=== PATIENT | male | born 1940 | race Caucasian/White ===

== ENCOUNTER → 2018-09-12 11:32 | Outpatient (POV) | payer MEDICARE, SELFPAY | PROVIDERS: PCP Dermatology; Visit Provider Dermatology | DX: L02.11 Cutaneous abscess of neck (principal); L72.0 Epidermal cyst | CPT/HCPCS: 87070; 87077; 87186; 87205 ==

== ENCOUNTER 2024-10-24 07:09 | Inpatient (IN) | payer MEDICARE, SELFPAY ==
[2024-10-24] VITALS (16 sets, daily range): BP systolic 91–158; BP diastolic 45–91; PULSE 44–127; RESP 17–22; TEMP 36.4–37; O2SAT 87–96; BMI 31.9
--- NOTE | 2024-10-24 07:07 | ECG_ITS ---
APPROVED REPORT Exam: Resting ECG HR:132 bpm ECG Measurements Heart Rate 132 AXES QRSd 84 QRS -11 QT 354 T 108 QTc 432 Conclusion A-fib with RVR ST depressions and T wave inversions throughout EKG. No specific anatomical location. No reciprocal elevations Electronically signed by : MALVIN SHEARER, 10/24/2024 13:25:05
--- NOTE | 2024-10-24 07:13 | CT_ITS ---
FINAL REPORT TECHNIQUE: Thin section axial CT with contrast with multiplanar reconstruction This study was performed with techniques to keep radiation doses as low as reasonably achievable, (ALARA). Individualized dose reduction techniques using automated exposure control or adjustment of mA and/or kV according to the patient''s size were employed. CLINICAL HISTORY: chest and abd pain. tachycardia, ams FINDINGS: Thoracic aorta shows no dissection or aneurysm. There is moderate bilateral lower lobe atelectasis. Moderate bilateral pleural effusions are identified. The upper lobes are clear without evidence of edema. Small pericardial effusion is identified. No mediastinal or hilar adenopathy is present. IMPRESSION: No evidence of aortic dissection or aneurysm. Moderate effusions with atelectasis. Pericardial effusion. Reviewed, Interpreted and Dictated by Alexey Ovalles MD Transcribed by Breana Weller Authenticated and [facility]
--- NOTE | 2024-10-24 07:13 | CT_ITS ---
FINAL REPORT TECHNIQUE: Pre-and postcontrast images of the abdomen and pelvis were performed by computed tomography. Extensive 3-D reconstruction images were performed. A CTA was performed. This study was performed with techniques to keep radiation doses as low as reasonably achievable (ALARA). Individualized dose reduction techniques using automated exposure control or adjustment of mA and/or kV according to the patient''s size were employed. CLINICAL HISTORY: chest and abd pain. tachycardia, ams FINDINGS: ABDOMEN/PELVIS: The solid organs are unremarkable. The gallbladder is normal. There is moderate distention of large bowel which may be due to ileus. There is no evidence of obstruction. There is colonic distention with fecal impaction. Patient is status post prostatectomy. The bladder is decompressed. CTA: The abdominal aorta is normal in caliber without evidence of dissection. The aortic arch great vessels are widely patent. IMPRESSION: Moderate distention of the large bowel, may be due to ileus. Reviewed, Interpreted and Dictated by Alexey Ovalles MD Transcribed by Breana Weller Authenticated and [facility]
--- OUTSIDE RECORDS SUMMARY | 2024-10-24 07:14 | XMS_ITS | Encounter Summary ---
Author Organization [employer] Address [address] [place] [address] Care Team Providers Care Machine Stripper Name Role Phone Unavailable Primary Care Provider Unavailabl e Encounter Details Date Type Department Care Team (Late st Contact Info) Description 11/29/2018 Transcribed Document [facility] [place] [address] [place] [address] ProviderDarwin MD [address] [place] [address] Social History Tobacco Use Types Packs/Day Years Used Date Smoking Tobacco: Never Assessed Sex and Gender Information Value Date Recorded Sex Assigned at Male 10/27/2021 3:42 PM CDT Legal Sex Male 3:42 PM CDT Gender Identity Male 10/27/2021 3:42 PM CDT Sexual Orientation Not on file documented as of this encounter Miscellaneous Notes * Cerner Conversion Note - Darwin ProviderMD - 11/29/2018 2:52 PM CDT Nursing Discharge Summary Entered On: 11/29/2018 14:54 EDT Performed On: 11/29/2018 14:52 EDT by ERICA GOODWIN RN-Charge Discharge Documentation Patient Disposition, General : Discharge Discharge To : Group Home unit/facility Mode Of Departure, General Discharge : Private vehicle Accompanied By, Discharge : Care provider IV Discontinued : Not applicable Personal Belongings With Patient : Yes Prescriptions Given to Patient : Yes Discharge Instructions Reviewed With, Opportunity For Questions Given : Patient Patient Education Completed : Yes Number of Prescriptions Given : 2 Teaching Method : Explanation, Printed materials Teaching Evaluation : Verbalizes understanding ERICA GOODWIN, RN-Charge - 11/29/2018 14:52 EDT Electronically signed by Marybeth [facility] Conversion Sales Marketing Cerner at 08/17/2022 9:48 AM CDT documented in this encounter Plan of Treatment Not on file documented as of this encounter Visit Diagnoses Not on filedocumented in this encounter
--- OUTSIDE RECORDS SUMMARY | 2024-10-24 07:14 | XMS_ITS | Encounter Summary ---
Author Organization [employer] Address [address] [place] [address] Care Team Providers Care Music Writer Name Role Phone Unavailable Primary Care Provider Unavailabl e Encounter Details Date Type Department Care Team (Late st Contact Info) Description 11/29/2018 Transcribed Document [facility] [place] [address] [place] [address] ProviderDarwin MD [address] [place] [address] Social History Tobacco Use Types Packs/Day Years Used Date Smoking Tobacco: Never Assessed Sex and Gender Information Value Date Recorded Sex Assigned at Male 10/27/2021 3:42 PM CDT Legal Sex Male 3:42 PM CDT Gender Identity Male 10/27/2021 3:42 PM CDT Sexual Orientation Not on file documented as of this encounter Miscellaneous Notes * Cerner Conversion Note - Historical ProviderMD - 11/29/2018 3:19 PM CDT DESIREE Entered On: 11/29/2018 15:19 EDT Performed On: 11/29/2018 15:19 EDT by MELANIE SANDOVAL MD-INT DESIREE Indication of use for OOCS : Acute Illness OOCS Misuse Suspected : Other Was DESIREE queried : Other Patient Advised to seek OOCS Treatment : Other Treatment to Include Limited Supply of OOCS : Other DESIREE Result : Other DESIREE Other Notes : As per referring facility medical record Patient cancelled on OOCS : Other DESIREE : . MELANIE SANDOAVL MD-INT - 11/29/2018 15:19 EDT Electronically signed by Marybeth [facility] Conversion Cooler Room Worker Cerner at 08/17/2022 9:46 AM CDT documented in this encounter Plan of Treatment Not on file documented as of this encounter Visit Diagnoses Not on filedocumented in this encounter
--- OUTSIDE RECORDS SUMMARY | 2024-10-24 07:14 | XMS_ITS | Encounter Summary ---
Author Organization [email or web address] Address [address] [place] [address] Care Team Providers Care Body Technician/Painter Name Role Phone Unavailable Primary Care Provider Unavailabl e Encounter Details Date Type Department Care Team (Late st Contact Info) Description 11/26/2018 Transcribed Document [facility] [place] Family Medicine [address] [place] [address] ProviderDarwin MD [address] [place] [address] Social History Tobacco Use Types Packs/Day Years Used Date Smoking Tobacco: Never Assessed Sex and Gender Information Value Date Recorded Sex Assigned at Male 10/27/2021 3:42 PM CDT Legal Sex Male 3:42 PM CDT Gender Identity Male 10/27/2021 3:42 PM CDT Sexual Orientation Not on file documented as of this encounter Miscellaneous Notes * Cerner Conversion Note - Historical ProviderMD - 11/26/2018 9:05 PM CDT Education-(VTE) / (DVT) Entered On: 11/27/2018 1:17 EDT Performed On: 11/26/2018 21:05 EDT by Cris Goodman RN Teaching/Learning Assessment Barriers To Learning : None evident Highest Level of Education : High school Learning Style Preferences Patient : Printed materials, Verbal explanation Learning Style Preferences Family : Verbal explanation Cris Goodman RN - 11/27/2018 1:17 EDT documented in this encounter Plan of Treatment Not on file documented as of this encounter Visit Diagnoses Not on filedocumented in this encounter
--- OUTSIDE RECORDS SUMMARY | 2024-10-24 07:14 | XMS_ITS | Encounter Summary ---
Author Organization [email or web address] Address [address] [place] [address] Care Team Providers Care Special Shopper Name Role Phone Unavailable Primary Care Provider Unavailabl e Encounter Details Date Type Department Care Team (Late st Contact Info) Description 11/29/2018 Transcribed Document [facility] [place] Family Medicine [address] [place] [address] ProviderDarwin MD [address] [place] [address] Social History Tobacco Use Types [...] Conversion Note - Historical ProviderMD - 11/29/2018 2:52 PM CDT Stroke/Warfarin Instructions Entered On: 11/29/2018 14:52 EDT Performed On: 11/29/2018 14:52 EDT by ERICA GOODWIN RN-Charge Stroke/Warfarin Instructions Stroke/TIA Discharge Ins : N/A Warfarin Discharge Ins : N/A ERICA GOODWIN RN-Charge - 11/29/2018 14:52 EDT documented in this encounter Plan of Treatment Not on file documented as of this encounter Visit Diagnoses Not on filedocumented in this encounter
--- OUTSIDE RECORDS SUMMARY | 2024-10-24 07:14 | XMS_ITS | Encounter Summary ---
Author Organization [employer] Address [address] [place] [address] Care Team Providers Care Olive Packer Name Role Phone Unavailable Primary Care Provider Unavailabl e Encounter Details Date Type Department Care Team (Late st Contact Info) Description 11/29/2018 Transcribed Document [facility] [place] [address] [place] [address] ProviderDarwin MD [address] [place] [address] Social History Tobacco Use Types [...] Conversion Note - Historical ProviderMD - 11/29/2018 8:20 AM CDT Patient: CLAUDINE FUENTES Age: 78 Years Sex: Male : 1940 comfortable; has ambulated 140' with walker. eating/voiding/has passed BM tolerating prn's left hip incision clean/healing/swelling in ST decreased. grossly NVI/negative miguel's s/p gamma nailing left hip fax. - stable rehab. f/u ortho 2 weeks continue oral keflex for one week after discharge (pt. received a steroid injection to left hip bursa one week prior to surgery) Electronically signed by Marybeth [facility] Conversion Account Collector Cerner at 08/17/2022 9:50 AM CDT documented in this encounter Plan of Treatment Not on file documented as of this encounter Visit Diagnoses Not on filedocumented in this encounter
--- OUTSIDE RECORDS SUMMARY | 2024-10-24 07:14 | XMS_ITS | Encounter Summary ---
Author Organization [employer] Address [address] [place] [address] Care Team Providers Care It Manager Name Role Phone Unavailable Primary Care Provider Unavailabl e Encounter Details Date Type Department Care Team (Late st Contact Info) Description 11/26/2018 Transcribed Document [facility] [place] Family Medicine [facility] [place] [address] ProviderDarwin MD [address] [place] [address] Social History Tobacco Use Types Packs/Day Years Used Date Smoking Tobacco: Never Assessed Sex and Gender Information Value Date Recorded Sex Assigned at Male 10/27/2021 3:42 PM CDT Legal Sex Male 3:42 PM CDT Gender Identity Male 10/27/2021 3:42 PM CDT Sexual Orientation Not on file documented as of this encounter Miscellaneous Notes * Cerner Conversion Note - Darwin ProviderMD - 11/26/2018 9:05 PM CDT Pain Assessment Entered On: 11/27/2018 9:18 EDT Performed On: 11/27/2018 9:02 EDT by Frida Muir Rn Intervention Information: oxyCODONE Performed by Dayana Cantrell Rn on 11/27/2018 08:02:00 EDT oxyCODONE,5mg Oral,Pain (Mild 1-3) Pain Assessment Pain Assessment : Follow-up assessment Pain Scale Goal : 4 Pain Scale Used : 0-10 Scale Pain Improved by Intervention : Yes Frida Muir Rn - 11/27/2018 9:18 EDT Pain Scale Intensity : 2 Frida Muir Rn - 11/27/2018 9:18 EDT Image 4 - Images currently included in the form version of this document have not been included in the text rendition version of the form. documented in this encounter Plan of Treatment Not on file documented as of this encounter Visit Diagnoses Not on filedocumented in this encounter
--- OUTSIDE RECORDS SUMMARY | 2024-10-24 07:14 | XMS_ITS | Encounter Summary ---
Author Organization [employer] Address [address] [place] [address] Care Team Providers Care Editing Internship Name Role Phone Unavailable Primary Care Provider Unavailabl e Encounter Details Date Type Department Care Team (Late st Contact Info) Description 11/26/2018 Transcribed Document [facility] [place] Family Medicine [address] [place] [address] ProviderDarwin MD [address] [place] [address] Social History Tobacco Use Types [...] Conversion Note - Historical ProviderMD - 11/26/2018 1:45 PM CDT Patient: CLAUDINE FUENTES Age: 78 Years Sex: Male : 1940 78 yo WM who presented to ER with increasing weightbearing pain about his left hip. About 5 weeks ago he noted left hip pain. He was seen in outpt setting where xray revealed no fx. He began Physical treatments with attention to his tight IT band. He began noticing increasing pain about the left hip over the last week - a steroid shot was given by his family physician to the hip bursa area. The pain increased and he was unable to bear weight without pain. Repeat xray reveal a nondisplaced low femoral neck fx. He has been on dilantin for 40 years or more for seizure control. He has had multiple fractures over the years after falls treated both operatively and nonoperatively - successfully. He did have dexascan years ago and was told it revealed osteopenia - no osteoporosis. He also reports recent onset of lower jaw and teeth pain felt related to osteopenia. He denies any traumatic event to contribute to present hip pain. He denies any parathesias about either lower extremity. He has not had any problems with GET in past. denies any allergies. Takes 81 mg. aspirin Q week last dose 11/22/18. both lower extremity show grossly normal NV exam. leg lengths grossly equal. rotation of left hip illicits pain in left groin - mild. skin about the hip is clear. left knee - no effusion/stable/full AROM. ankle stable - NT/no effusion. skin is clear. compression/distraction about pelvis - negative. xray/CT scan - grade 1 slip L5/S1; located femoral heads, nondisplaced femoral neck fracture at mid to low level of femoral neck. osteopenia left nondisplaced pathologic femoral neck fracture osteopenia r/o osteoporosis discussed options of care. nonsurgical - 3 months NWB/LLE - risk of immobility and fracture displacement or nonunion require OR; or operative treatment -with placement of a long gamma nail - allowing weightbearing immediately post op ; risk of surgery - anesthesia. infection, failure of implant requiring repeat OR; DVT/PE; nerve or vascular injury, nonunion or malunion requiring repeat OR. leg length difference. pt. just ate a snack at 12 noon; will proceed with gamma nail placement at 6PM. - questions of /pt./daughter answered. get vitamin D 3 levels and a dexascan for osteoporosis evaluation documented in this encounter Plan of Treatment Not on file documented as of this encounter Visit Diagnoses Not on filedocumented in this encounter
--- OUTSIDE RECORDS SUMMARY | 2024-10-24 07:14 | XMS_ITS | Encounter Summary ---
Author Organization [employer] Address [address] [place] [address] Care Team Providers Care Stereo Compiler Name Role Phone Unavailable Primary Care Provider Unavailabl e Encounter Details Date Type Department Care Team (Late st Contact Info) Description 11/29/2018 Transcribed Document [facility] [place] [address] [place] [address] ProviderDarwin MD [address] [place] [address] Social History Tobacco Use Types [...] Conversion Note - Historical ProviderMD - 11/29/2018 5:00 AM CDT Chart Check - Review Order Profile Entered On: 11/29/2018 5:39 EDT Performed On: 11/29/2018 5:00 EDT by Yoselin Vargas Rn Chart Check Powerplans Initiated/Discontinued as Appropriate : Yes All Active Orders Reviewed : Yes Yoselin Vargas Rn - 11/29/2018 5:39 EDT documented in this encounter Plan of Treatment Not on file documented as of this encounter Visit Diagnoses Not on filedocumented in this encounter
--- OUTSIDE RECORDS SUMMARY | 2024-10-24 07:14 | XMS_ITS | Encounter Summary ---
Author Organization [employer] Address [address] [place] [address] Care Team Providers Care Computing Services Director Name Role Phone Unavailable Primary Care Provider Unavailabl e Encounter Details Date Type Department Care Team (Late st Contact Info) Description 11/29/2018 Transcribed Document [facility] [place] [facility] [place] [address] ProviderDarwin MD [address] [place] [address] Social History Tobacco Use Types [...] Conversion Note - Darwin ProviderMD - 11/29/2018 8:45 AM CDT Treatment Intervention, PT Entered On: 11/29/2018 12:07 EDT Performed On: 11/29/2018 8:45 EDT by LUIS AGARWAL PT General Information, PT Visit Type, PT : Treatment Note Patient Orders : Order Date Order Ordering 11/26/2018 21:05 PT Evaluation and Treatment Ordered By: BRIDGETTE MEJIAS MD-ORT 11/26/2018 21:05 PT Treatment Instructions Ordered By: BRIDGETTE MEJIAS MD-ORT 11/26/2018 21:05 PT Treatment Instructions Ordered By: BRIDGETTE MEJIAS MD-ORT 11/26/2018 21:05 PT Treatment Instructions Ordered By: BRIDGETTE MEJIAS MD-ORT 11/26/2018 21:05 PT Treatment Instructions Ordered By: BRIDGETTE MEIJAS MD-ORT 11/27/2018 09:18 PT Additional Treatment Ordered By: MARIANNE MONTALVO, PT Active Diagnoses : 11/26/2018 00:00 Epilepsy, unspecified, not intractable, without status epilepticus 11/26/2018 00:00 Essential (primary) hypertension 11/26/2018 00:00 Fracture of unspecified part of neck of left femur, initial encounter for closed fracture 11/26/2018 00:00 Hip pain-swelling 11/26/2018 00:00 Hyperlipidemia, unspecified 11/26/2018 00:00 Hypo-osmolality and hyponatremia Therapy Diagnosis, PT : reduced mobility Admission Date : 11/26/2018 12:26 Assisted by, PT : Occupational Therapist Personal Devices : Personal Devices No Devices Recorded Assistive Devices : Assistive Devices No Devices Recorded Precautions in Place : Fall prevention measures LUIS AGARWAL, PT - 11/29/2018 11:57 EDT General Status Patient Received Status : Supine in bed, Bed alarm activated Treatment Start Time : 11/29/2018 8:47 EDT Patient Left Status : Up in chair, Chair alarm activated, RN/PCT informed, Communication board completed, All needs met and within reach RN/PCT Informed Comment : Yes, RN approved pt for PT treatment and pt agreeable Treatment End Time : 11/29/2018 9:11 EDT Treatment Time : 24 Minute(s) LUIS AGARWAL, PT - 11/29/2018 11:57 EDT Edu Topics Physical Therapy Education Grid Bed Mobility Training : Verbalizes understanding, Returns demonstration Gait Training : Verbalizes understanding, Returns demonstration Home Program/Exercises : Verbalizes understanding, Returns demonstration Transfer Training : Verbalizes understanding, Returns demonstration Use of Assistive Device : Verbalizes understanding, Returns demonstration LUIS AGARWAL, PT - 11/29/2018 11:57 EDT Plan of Care, PT PT Tx Plan/Goals Established w Patient : Yes LUIS AGARWAL, PT - 11/29/2018 11:57 EDT Snf Goals Other PT LTG Grid Goal #1 Goal #2 Goal #3 Other : Patient will transfer with SBA/CGA to decrease caregiver burden. Patient will ambualte 100' with RWx CGA for household distances. Patient will perform therex AROM x 15 reps to improve strength/endurance for functional activities. Date to Meet : 11/30/2018 EDT 11/30/2018 EDT 11/30/2018 EDT Goal Status : Goal met Goal met Goal met Date Met : 11/29/2018 EDT 11/29/2018 EDT 11/28/2018 EDT LUIS AGARWAL, PT - 11/29/2018 11:57 EDT LUIS AGARWAL, PT - 11/29/2018 11:57 EDT LUIS AGARWAL, PT - 11/29/2018 11:57 EDT Treatment Note Subjective Comment : agreeable I hope to go to rehab today Patient's Response to Treatment : good Additional Objective Information : Supine to sit EOB with supervision Sit to stand from EOB with supervision and verbal cue to push up from bed with at least one hand. Gait x 190 feet with RWX, CGAx1, slow pace, step to gait pattern, cues for safety and for turning with walker Back to room Stand to sit in recliner with supervision UIC, pt performed ther ex of ankle pumps, quad sets, gluteal sets, hamstring sets, long arc quads and marching in sitting x 10 reps each to BLE. Pt issued written HEP and present for training Assessment : Pt has met 3/3 acute care goals and is ready for discharge from PT standpoint Plan for Treatment : Pt is ready for D/C from PT standpoint but Pt will continue until pt is cleared medically for discharge LUIS AGARWAL, PT - 11/29/2018 11:57 EDT Pain Assessment Pain Scaled Used : 0-10 Pain scale Pain Score Pre-Intervention : 0 Pain Score Post-Intervention. : 0 LUIS AGARWAL, PT - 11/29/2018 11:57 EDT Image 1 - Images currently included in the form version of this document have not been included in the text rendition version of the form. [place] PT Charges PT Therap. Exercise 15 min : 1 Gait Training Each 15 Min : 1 LUIS AGARWAL, PT - 11/29/2018 11:57 EDT Electronically signed by Vicente Rueda Conversion Medicaid Collection Specialist Cerner at 08/17/2022 9:53 AM CDT documented in this encounter Plan of Treatment Not on file documented as of this encounter Visit Diagnoses Not on filedocumented in this encounter
--- OUTSIDE RECORDS SUMMARY | 2024-10-24 07:15 | XMS_ITS | Encounter Summary ---
Author Organization [employer] Address [address] [place] [address] Care Team Providers Care Teller Manager Name Role Phone Unavailable Primary Care Provider Unavailabl e Encounter Details Date Type Department Care Team (Late st Contact Info) Description 11/26/2018 Transcribed Document [facility] [place] Family Medicine [address] [place] [address] ProviderDarwin MD [address] [place] [address] Social History Tobacco Use Types [...] Conversion Note - Darwin ProviderMD - 11/26/2018 10:00 PM CDT Pain Assessment Entered On: 11/26/2018 23:58 EDT Performed On: 11/26/2018 23:34 EDT by Cris Goodman RN Intervention Information: celecoxib Performed by Cris Goodman RN on 11/26/2018 22:34:00 EDT celecoxib,200mg Oral Pain Assessment Pain Assessment : Follow-up assessment Pain Scale Goal : 4 Pain Intervention, Drug : Medicated Pain Improved by Intervention : Yes Cris Goodman RN - 11/26/2018 23:58 EDT documented in this encounter Plan of Treatment Not on file documented as of this encounter Visit Diagnoses Not on filedocumented in this encounter
--- OUTSIDE RECORDS SUMMARY | 2024-10-24 07:15 | XMS_ITS | Encounter Summary ---
Author Organization [employer] Address [address] [place] [id number] Care Team Providers Care Recruitment Manager Name Role Phone Unavailable Primary Care Provider Unavailabl e Encounter Details Date Type Department Care Team (Late st Contact Info) Description 12/01/2018 Transcribed Document [facility] [facility] [address] [place] [address] ProviderDarwin MD [address] [place] [address] Social History Tobacco Use Types Packs/Day Years Used Date Smoking Tobacco: Never Assessed Sex and Gender Information Value Date Recorded Sex Assigned at Male 10/27/2021 3:42 PM CDT Legal Sex Male 3:42 PM CDT Gender Identity Male 10/27/2021 3:42 PM CDT Sexual Orientation Not on file documented as of this encounter Miscellaneous Notes * [employer] Conversion Note - Darwin ProviderMD - 12/01/2018 11:06 AM CDT UM Authorization Entered On: 12/01/2018 11:06 EDT Performed On: 12/01/2018 11:06 EDT by VANDANA CRUZ RN-Utilization Review Primary Insurance Authorization Authorization and Policy Numbers : Insurance 1 Health Plan: [employer] Policy Number: [id number] Authorization Number: [id number] Insurance Primary Name : [facility] Medicare Authorization Status-Primary : Awaiting callback Reference Number-Primary : [id number] Number of Days Authorized-Primary : 2 Authorized Service Begin Date-Primary : 11/26/2018 EDT Authorized Service End Date-Primary : 11/27/2018 EDT Authorization Comments-Primary : [facility] d/c date and summary attached to website ---auth still pending Historical Authorization Comments-Primary : Comment 1: Uploaded clinicals to [facility] Medicare via [employer] for continuing stay. (JONY PALOMO, RN-Utilization Review 11/28/2018 13:33) Comment 2: [facility] approved per fax back -- nrd 11/28 (VANDANA CRUZ, JAIRON-Utilization Review 11/27/2018 16:05) Comment 3: Uploaded clinicals to [facility] Medicare via [employer]. (JONY PALOMO, JAIRON-Utilization Review 11/27/2018 09:20) VANDANA CRUZ RN-Utilization Review - 12/01/2018 11:06 EDT documented in this encounter Plan of Treatment Not on file documented as of this encounter Visit Diagnoses Not on filedocumented in this encounter
--- OUTSIDE RECORDS SUMMARY | 2024-10-24 07:15 | XMS_ITS | Encounter Summary ---
Author Organization [employer] Address [address] [place] [id number] Care Team Providers Care Human Resources Assistant Manager Name Role Phone Unavailable Primary Care Provider Unavailabl e Encounter Details Date Type Department Care Team (Late st Contact Info) Description 11/26/2018 Transcribed Document [facility] [facility] [address] [place] [address] ProviderDarwin MD [address] [place] [address] Social History Tobacco Use Types [...] Darwin ProviderMD - 11/26/2018 9:05 PM CDT Evaluation, Physical Therapy Entered On: 11/27/2018 9:18 EDT Performed On: 11/27/2018 8:58 EDT by MARIANNE MONTALVO, PT General Information, PT Visit Type, PT : Initial evaluation Patient Orders : Order Date Order Ordering 11/26/2018 21:05 PT Evaluation and Treatment Ordered By: BRIDGETTE JUÁREZ MD-ORT 11/26/2018 21:05 PT Treatment Instructions Ordered By: BRIDGETTE JUÁREZ MD-ORT 11/26/2018 21:05 PT Treatment Instructions Ordered By: BRIDGETTE JUÁREZ MD-ORT 11/26/2018 21:05 PT Treatment Instructions Ordered By: BRIDGETTE JUÁREZ MD-ORT 11/26/2018 21:05 PT Treatment Instructions Ordered By: BRIDGETTE JUÁREZ MD-ORT Active Diagnoses : 11/26/2018 00:00 Epilepsy, unspecified, not intractable, without status epilepticus 11/26/2018 00:00 Essential (primary) hypertension 11/26/2018 00:00 Fracture of unspecified part of neck of left femur, initial encounter for closed fracture 11/26/2018 00:00 Hip pain-swelling 11/26/2018 00:00 Hyperlipidemia, unspecified 11/26/2018 00:00 Hypo-osmolality and hyponatremia Therapy Diagnosis, PT : aftercare following L hip ORIF Admission Date : 11/26/2018 12:26 Personal Devices : Personal Devices No Devices Recorded Assistive Devices : Assistive Devices No Devices Recorded General Information Comment, PT : 78yo male s/p L hip ORIF by Dr. Juárez on 11/26/18. WBAT PMH: HLD, HTN, seizure MARIANNE MONTALVO, PT - 11/27/2018 9:10 EDT General Status Patient Received Status : Supine in bed, Bed alarm activated, Other: SCDS, present Treatment Start Time : 11/27/2018 8:42 EDT Patient Left Status : Up in chair, Chair alarm activated, RN/PCT informed, Family/Visitors at bedside, Communication board completed, All needs met and within reach, Other: as found RN/PCT Informed Comment : RN ok'd PT EVAL. Patient agreeable to PT EVAL. Treatment End Time : 11/27/2018 8:58 EDT Treatment Time : 16 Minute(s) Actual Treatment Time : 16 Minute(s) MARIANNE MONTALVO, PT - 11/27/2018 9:10 EDT History and Environment Living Situation, Therapy : Home Patient Lives With : Spouse Persons Providing Information : Patient Home Equipment Therapy, PT : Walker Walker : Walker, front wheel, Walker, standard Home Setup : One story Stairs : No Ramp : Yes MARIANNE MONTALVO, PT - 11/27/2018 9:10 EDT Prior Level of Function PT GRID Prior LOF Ambulation, Household : Independent (Comment: recently had to start using RWx d/t L LE pain [MARIANNE MONTALVO, PT - 11/27/2018 9:10 EDT] ) Prior LOF Bed Mobility : Independent Prior LOF Toileting : Independent Prior LOF Transfer : Independent MARIANNE MONTALVO, PT - 11/27/2018 9:10 EDT Prior LOF Assist with ADL Comment : Independent MARIANNE MONTALVO, PT - 11/27/2018 9:10 EDT Upper Extremity Upper Extremity Dominance : Right Right UE Active ROM : WFL Right UE Strength : WFL Left UE Active ROM : WFL Left UE Strength : WFL MARIANNE MONTALVO, PT - 11/27/2018 9:10 EDT Lower Extremity RLE Active ROM : WFL Right LE Strength : WFL LLE Active ROM : Impaired Left LE Strength : Impaired Lower Extremity Comment : L LE AROM/strength impaired d/t recent surgery. MARIANNE MONTALVO, PT - 11/27/2018 9:10 EDT Functional Mobility Mobility Grid Supine to Sit : Supervision/set-up (Comment: CGA [MARIANNE MONTALVO, PT - 11/27/2018 9:10 EDT] ) Sit to Stand : Rehab Minimal assistance (Comment: bed elevated + VC's for hand placement [MARIANNE MONTALVO, PT - 11/27/2018 9:10 EDT] ) Stand to Sit : Rehab Minimal assistance (Comment: CGA + VC's for safety [MARIANNE MONTALVO, PT - 11/27/2018 9:10 EDT] ) MARIANNE MONTALVO, PT - 11/27/2018 9:10 EDT Sit to Stand Device : Belt, gait, Walker, front wheel MARIANNE MONTALVO, PT - 11/27/2018 9:10 EDT Gait Training/Assessment, PT Weight Bearing Status : As tolerated Gait Assistance Level : Assist, minimal Walking Distance : ~ 40' Ambulatory Devices : Gait belt, Walker, front wheel Gait Training Comment : Patient ambulated 40' with RWx CGA/Min A + VC's for gait sequencing and safety with RWx. Step to pattern, downward gaze, slow hilaria, tends to step too far into walker with L LE. MARIANNE MONTALVO, PT - 11/27/2018 9:10 EDT Neuromuscular Reeducation, PT Balance Comment : Fair - needs AD MARIANNE MONTALVO, PT - 11/27/2018 9:10 EDT Neurological/Sensory Overall Sensory Response : Intact MARIANNE MONTALVO, PT - 11/27/2018 9:10 EDT Activity Tolerance, PT Activity Comment : Fair - fatigued after short walk. MARIANNE MONTALVO, PT - 11/27/2018 9:10 EDT Cognition Assessment, PT Orientation : Oriented x 4 Safety/Judgment Comment : Intact Follows Basic Command Assessment : Yes Attention Assessment : Present MARIANNE MONTALVO, PT - 11/27/2018 9:10 EDT Edu Topics Physical Therapy Education Grid Bed Mobility Training : Verbalizes understanding, Returns demonstration, Needs reinforcement Gait Training : Verbalizes understanding, Returns demonstration, Needs further teaching, Needs reinforcement Role of Physical Therapy : Verbalizes understanding Safety : Verbalizes understanding, Needs reinforcement Therapeutic Exercises : Needs further teaching Transfer Training : Verbalizes understanding, Returns demonstration, Needs reinforcement, Needs further teaching Use of Assistive Device : Verbalizes understanding, Returns demonstration, Needs reinforcement MARIANNE MONTALVO, PT - 11/27/2018 9:10 EDT Teaching/Learning Assessment Barriers To Learning : None evident Individuals Taught : Patient Readiness to Learn : Cooperative Highest Level of Education : High school Readiness to Learn : Explanation Learning Style Preferences Patient : Printed materials, Verbal explanation Learning Style Preferences Family : Verbal explanation MARIANNE MONTALVO, PT - 11/27/2018 9:10 EDT Indication Assesessment, PT Physical Therapy Indicated : Yes PT Problem List : Impaired, bed mobility, Impaired, gait, Impaired, standing balance, Impaired, strength, Impaired, transfers Potential Barriers To Therapy : None evident Rehabilitation Potential : Good MARIANNE MONTALVO, PT - 11/27/2018 9:10 EDT Plan of Care, PT PT Tx Plan/Goals Established w Patient : Yes PT Frequency Rehab : Daily, twice (bid) PT Duration Rehab : Three days PT Treatments Planned : Balance training, Bed mobility training, Caregiver training, Gait training, Safety education, Therapeutic exercises, Transfer training MARIANNE MONTALVO, PT - 11/27/2018 9:10 EDT Technical Customer Support Specialist Goals Other PT LTG Grid Goal #1 Goal #2 Goal #3 Other : Patient will transfer with SBA/CGA to decrease caregiver burden. Patient will ambualte 100' with RWx CGA for household distances. Patient will perform therex AROM x 15 reps to improve strength/endurance for functional activities. Date to Meet : 11/30/2018 EDT 11/30/2018 EDT 11/30/2018 EDT Goal Status : Initial goal Initial goal Initial goal MARIANNE MONTALVO, PT - 11/27/2018 9:10 EDT MARIANNE MONTALVO, PT - 11/27/2018 9:10 EDT MARIANNE MONTALVO, PT - 11/27/2018 9:10 EDT Treatment Note Patient's Response to Treatment : Good Assessment : Patient will benefit from acute skilled PT services to maxamize safety/[place] with functional mobility prior to discharge. MARIANNE MONTALVO, PT - 11/27/2018 9:10 EDT Pain Assessment Pain Scaled Used : 0-10 Pain scale Pain Score Pre-Intervention : 2 Pain Score During-Intervention : 2 Pain Score Post-Intervention. : 2 Pain Comment : 06/11 pain in L hip Patient had pain meds earlier. MARIANNE MONTALVO, PT - 11/27/2018 9:10 EDT Image 1 - Images currently included in the form version of this document have not been included in the text rendition version of the form. Anticipated Discharge Needs, OT/PT Anticipated Discharge to : Unable to assess at this time (Comment: pending progress/safety: home with family + home health vs SNF ? [MARIANNE MONTALVO, PT - 11/27/2018 9:10 EDT] ) Recommend Continued Therapy at Discharge : Yes MARIANNE MONTALVO, PT - 11/27/2018 9:[address] [facility] PT Charges Gait Training Each 15 Min : 1 PT Saadiaal Low Complexity : 1 MARIANNE MONTALVO, PT - 11/27/2018 9:10 EDT documented in this encounter Plan of Treatment Not on file documented as of this encounter Visit Diagnoses Not on filedocumented in this encounter
--- OUTSIDE RECORDS SUMMARY | 2024-10-24 07:15 | XMS_ITS | Data Portability ---
Author Organization [facility] [employer] Address [address] [place] [address] Care Team Providers Care Worm Picker Name Role Phone [facility] Referring Provider [phone] BRIDGETTE MEJIAS Referring Provider Assessment Encounter Date Assessment Date Assessment LastModified by Organization Details LastModified Time 06/24/2023 06/24/2023 Mr. Fuentes has multiple medical problems and recently had a fall in his home with no major injuries fortunately but he continued to develop chest pains and some shortness of breath and coughing after the fall so he went to emergency room 06/16/23 at [facility]. He was found to not have rib fractures but was diagnosed with a probable viral respiratory illness. Labs and a CT angiogram of the chest were within normal ranges. Since his fall on 06/10 he has become weaker and is having difficulty with transfers again. He continue to be a high fall risk. In addition he has developed a right sided sacral/high gluteal pressure ulcer and his has been applying a tegaderm type of bandage. The ulcer has deepened and is draining purulent and foul smelling exudate. It was cultured for aerobes and anaerobes today. We are beginning antibiotics empirically but this wound will require further wound care with possible irrigation and packing. This patient needs home health care again for the pressure wound as well as for physical therapy. He suffers osteoporosis with a history of multiple fragility fractures. He receives his six month dose of Prolia in the office today. Not available 06/25/2023 09:46:28 07/29/2023 07/29/2023 Mr. Fuentes is followed by home health for OT and PT and wound care. He was noted this morning to have chills and cough as well as wheezing by home care. Presently he is afebrile but there is some audible chest congestion. He coughs and sometimes chokes a little with eating so is at risk for aspiration although no obvious aspiration has been noted. We will cover empirically with a z pack antibiotic. Recent labs show evidence for under active thyroid so we will begin a low dose of supplement. OT has provided a special breathing tool to improve his lung function and hopefully that will benefit and is apparently superior to incentive spirometry. Wound care is concerned about slow healing as expected. The wound is presently packed. We noted a low albumin on his labs so we do recommend they add some protein supplemental beverages especially the low sugar ones available. We will also add extra vitamin C and Zinc to try to promote wound healing. We will follow up closely as needed and his wellness is due in January. vidal Not available 07/30/2023 13:30:18 02/13/2024 02/13/2024 Mr. Fuentes presents for a wellness visit. He remains at home for over the past 3 years since his long stent in rehabilitation after the right shoulder fracture. He still requires assistance but can walk for short distances with his walker now and has not had any significant falls. However he had a little fall last week walking to the car as he turned he fell partially into the car and bruised the right lateral foot and fell backwards. His daughter was holding him with the gait belt but he has just been a little sore this week and has been afraid to take his daily walk. He is feeling better and we encourage them to resume some short walks. A family member always has his gait belt while he is on a walker. He keeps busy playing games on his I pad and reading. He enjoys eating and has gained a little weight. We have advised cutting back some on the Carolee's frosties. He has had a severe gluteal decubitus that required prolonged packing and home health wound care earlier this year that finally healed. Now he does have a pressure injury with just soreness and redness in the gluteal crack. We recommend he change positions more and get out of the lift chair and into bed for his nap. He has a sleep number bed and raises the head and the feet and we recommend he be more flat in the bed. He only raises the head because it is easier to use the urinal while in bed. They will work on more position changes to avoid the present stage 1 from advancing. Mr. Fuentes was admitted to [facility] for rehabilitation in January 2020 following unfortunate fractures of the right proximal humerus and the right posterior acetabulum. These fractures occurred while lying in bed and suffering a grand mal seizure. He has had a seizure disorder for over 40 years and was seizure-free for most of those years while taking phenobarbital and dilantin. Unfortunately those medications caused osteoporosis and his neurologist weaned him off those over the previous year, while adjusting doses of the present seizure medications. Fortunately he has now been seizure free for nearly three years with increased dose of medications. However, his present medications have also caused issues with severe hyponatremia. His Keppra levels have increased significantly and we are going to have them cut the dose by 500 mg total per day from 1500 mg bid to 1250 mg bid. His neurologist has retired so we will be following his levels. They prefer to not have to travel to [place]. Labs are reviewed and sodium is mildly low at 129. We will recheck this with a Keppra level in a few months. TSH is slightly elevated so we are bumping the supplement from 25 to 50 mcg daily and we recheck that in a few months as well. 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 In January of 2019 we were finally able to get authorization from his insurance and he began Teriparatide/Forte o for the condition. He completed two years of the Forteo and now is on Prolia every six months. His next dose will be due in . After some recovery of the acetabular fracture with basic healing and no evidence for seizures, the orthopedist and neurologist cleared him for the right reverse shoulder replacement that was performed in March of 2020. He spent about 4 days in hospital post-operatively and was transferred back to [facility] on 03/18/20. His medications are reconciled and are primarily ordered through [facility]. A list of medications are provided to him. Vaccines are reviewed and updated with the covid vaccine today. We continue to encourage healthy lifestyle and safety to guard against falling. vidal Not available 02/14/2024 07:21:59 07/09/2024 07/09/2024 Mr. Fuentes returned home yesterday from a rehabilitation facility, [place]. His medications were changed and they are confused by some of the changes. He was found to be fluid overloaded with the ongoing hyponatremia and after restricting fluid intake to no more than 2 liters per day that has corrected. He also presented to the hospital with tachycardia that fortunately was not atrial fibrillation so he was started on a low dose beta alec. Intermittently however he would become hypotensive between the diuretic and beta alec so a pressor agent, Midodrin was added. He did lose 15 pounds of fluid and it will be important for him to keep that off. Today they have not given him any meds except the lasix 20 mg which was ordered just for Mondays. We discussed that they need to get some scales and try to weigh him in the mornings and if weight increases by 3-5 pounds overnight he should have a lasix 20 mg that day. We discussed that they need to monitor his blood pressure and pulse at least 3 times daily and anytime he feels light-headed. If systolic is 100 or less they can give a dose of the Midodrin. Apparently the long term was simply dosing it three times daily. They also cut the Keppra to 1000 mg bid. We had also cut that back from 1250 bid from 1500 bid as his level was elevated in January. A repeat level is pending today. To prevent tachycardia we recommend remaining on the beta alec but trying to cut the dose back if possible to 1/2 tablet or 12.5 mg daily. He still has the gluteal sore and they are using Calmoseptine on it now without menthol. We can recheck that at follow up. Since he was in hospital and then rehab since the end of May he has become weaker. He apparently had a bout of covid in rehab that set back his therapy so of course that is harder to recover from at his age. We encourage ongoing walking with his walker at home with assistance and of course position changes for preventing further pressure injuries. We will follow up closely in a couple of months. We have printed out and made instruction notes on his new medication list for the family. [email or web address] Not available 07/10/2024 07:04:36 08/30/2024 08/30/2024 Mr. Fuentes follows up on multiple medical problems. He has started walking more with his walker since physical therapy has finally started at his home. He is prone to significant pressure ulcers and last year had a very deep wound that required prolonged packing. Following a May hospitalization for gluteal cellulitis and chest pain, he was sent to rehabilitation and upon discharge he was ordered a hospital bed that has helped. We suspect it is a regular mattress so recommend a gel overlay for his pressure wound recurrence issues. If it is already a proper mattress then no need to change it. [facility] delivered it so would have the information. At present he still has a chronic pressure area over the gluteal areas and a small erythematous patch over the sacrum that his states is staying there. He has developed significant intertrigo in the groin area as well. His other complaint is a chronically runny nose and flonase has not helped. We will send Ipratropium nasal spray that may work better. He is due labs for his seizure disorder as we decreased the Keppra dose at his last visit as he was over-medicated. He is also due thyroid testing and general labs. We encourage the physical therapy. Medications are reviewed and will remain unchanged unless there are conflicting lab results. Not available 08/31/2024 13:50:14 Plan of Treatment Reminders Order Date Submit Date Provider Last Modified By Organization Details Last Modified Time Details Appointments None recorded. Lab TSH, serum or plasma 2024 025 Zonoff [facility], [address], [place], [address], 13:25:39 levetiracet am, serum 2024 025 Zon[facility], [address], [place], [address], 13:25:39 valproic acid, total, serum 2024 025 Zonoff [facility], [address], [place], [address], 5 13:25:40 CMP, serum or plasma 2024 025 RICHARD [facility], [address], [place], [address], 5 13:25:38 levetiracet am, serum 2024 025 RICHARD [facility], [address], [place], [address], 5 12:32:27 CMP, serum or plasma 2024 025 RICHARD [facility], [address], [place], [address], 5 12:32:26 levetiracet am, serum 2023 024 [email or web address] n5 [facility], [address], [place], [address], 5 15:07:08 TSH, serum or plasma 2023 024 [email or web address] n5 [facility], [address], [place], [address], 5 16:22:23 BMP, serum or plasma 2023 024 [email or web address] n5 [facility], [address], [place], [address], 5 16:22:23 culture, aerobic + anaerobic 2023 024 RICHARD [facility], [address], [place], [address], 4 14:51:23 Referral home health referral 2023 024 vidal [facility], [address], [facility], [place], [address], 4 12:49:46 Procedures None recorded. Surgeries None recorded. Imaging None recorded. Medication Orders ipratropium bromide 42 mcg (0.06 %) nasal spray 2024 025 [facility], [address] [place] [address], [address], 5 15:37:37 mupirocin 2 % topical ointment 2024 025 [facility], [address] [place], [place], [id number], 5 15:37:42 nystatin 100,000 unit/gram topical ointment 2024 025 [facility], [address], [place], [place], [id number], 5 15:37:40 nystatin 100,000 unit/gram topical cream 2024 025 [facility], [address] [place] [address], [address], 5 15:37:36 furosemide 20 mg tablet 2024 025 [facility], [address], [place], [id number], 5 16:05:59 metoprolol succinate ER 25 mg tablet,exte nded release 24 hr 2024 025 [facility]28627, [address] [place], [place], [id number], 5 16:06:00 midodrine 5 mg tablet 2024 025 [facility], [address], [id number], 5 16:05:59 levothyroxi ne 50 mcg tablet 2023 024 [facility], [address] [place] [address], [address], 4 14:43:20 zinc (glycinate) 20 mg capsule 2023 024 Not available 4 17:15:19 Vitamin C 250 mg tablet 2023 024 Not available 4 17:15:19 azithromyci n 250 mg tablet 2023 024 [facility]67157, [address], [place], [id number], 4 14:02:48 azithromyci n 250 mg tablet 2023 024 [facility], [address] [facility], [place], [address], 4 14:02:56 levothyroxi ne 25 mcg tablet 2023 024 [facility], [address] [place] [address], [address], 5 07:42:31 doxycycline monohydrate 100 mg capsule 2023 024 [facility] #54651, [address] [place], [id number], 4 15:07:12 levofloxaci n 500 mg tablet 2023 024 [facility] #81640, [address], [id number], 4 15:08:06 Prolia 60 mg/mL subcutaneou s syringe 2023 024 Not available 13:01:21 Patient TargetsNo targets recorded. 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 Referring Physician: Mini Freire, Family Medicine, Encounter Date: 06/24/2023 Results Created Date Observation Date Name Description Value Unit Range Abnormal Flag Note LastModifiedBy Organization Detail LastModifiedTime 06/24/19 24 06/27/2023 CULTU RE, AEROB IC AND ANAER OBIC W/GRA M STAIN culture, anaerobic bacteria w/gram stain CULTU RE, ANAER OBIC BACTE KENY W/GRA M STAIN Micro Numbe r: [id number] Test Statu s: Final Speci men Sourc e: Wound (site not speci fied) Speci men Quali ty: Adequ ate Gram Stain : Few Gram posit jacqueline cocci Resul t: Heavy growt h of Fineg oldia magna Not Available [facility] [address] [facility], [place], [address], 06/27/2023 14:51:23 06/24/19 24 06/27/2023 CULTU RE, AEROB IC AND ANAER OBIC W/GRA M STAIN culture, aerobic bacteria abnormal CULTU RE, AEROB IC BACTE KENY Micro Numbe r: [id number] Test Statu s: Final Speci men Sourc e: Butto cks, right Speci men Quali ty: Adequ ate Resul t: Moder ate growt h of Staph yloco ccus aureu s Negat jacqueline for induc ible clind amyci n resis tance . COMME NT: Skin hilario also prese nt. S.aur eus ----- ----- ----- - INT POLLY CIPRO FLOXA TRU S <=0.5 CLIND AMYCI N S <=0.2 5 ERYTH ROMYC IN R >=8 GENTA MICIN S <=0.5 LEVOF LOXAC IN S 0.25 MOXIF LOXAC IN S <=0.2 5 OXACI LLIN S 0.5 1 TETRA CYCLI NE S <=1 TRIME THOPR IM/HALLMAN LFA S <=10 VANCO MYCIN S <=0.5 S=Noemi cepti ble I=Int ermed iate R=Res istan t * = Not Teste d NR = Not Repor cindy NN = See Thera py Comme nts THERA PY COMME NTS Note 1: Oxaci llin susce ptibl e staph yloco cci are susce ptibl e to other penic illin ase-s table penic illin s (e.g. , methi cilli n, nafci llin) , beta- lacta m/bet a-lac esvin e inhib itor combi natio ns, and cephe ms with staph yloco ccal indic ation s, inclu ding cefaz britney. Not Available [facility] [address] [facility], [place], [address], 06/27/2023 14:51:23 07/28/19 24 07/29/2023 LIPID PANEL , STAND MIKAYLA cholesterol, total 155 mg/dL <200 normal Not Available [facility] [address], [place], [address], 07/29/2023 11:43:11 07/28/19 24 07/29/2023 LIPID PANEL , STAND MIKAYLA HDL cholesterol 65 mg/dL > or = 40 normal Not Available [facility] [address], [place], [address], 07/29/2023 11:43:11 07/28/19 24 07/29/2023 LIPID PANEL , STAND MIKAYLA triglyceride s 67 mg/dL <150 normal Not Available [facility] [address], [place], [address], 07/29/2023 11:43:11 07/28/19 24 07/29/2023 LIPID PANEL , STAND MIKAYLA LDL-choleste rol 76 mg/dL _(zully c) normal Refer ence range : <100 Leonor able range <100 mg/dL for prima ry preve ntion ; <70 mg/dL for patie nts with CHD or diabe tic patie nts with > or = 2 CHD risk facto rs. LDL-C is now calcu lated using the Valentina n-Hop kins calcu terrence n, which is a valid ated novel metho d provi ding donna r accur acy than the Fried brandon equat ion in the estim ation of LDL-C . Valentina n SS et al. PROSPER. 2013; 310(1 9): 2061- 2068 (http ://ed ucati on.Habeas babsFRX Pol[employer]. com/f aq/FA Q164) Not Available [facility] [address], [place], [address], 07/29/2023 11:43:11 07/28/19 24 07/29/2023 LIPID PANEL , STAND MIKAYLA chol/HDLC ratio 2.4 (calc ) <5.0 normal Not Available [facility] [address], [place], [address], 07/29/2023 11:43:11 07/28/19 24 07/29/2023 LIPID PANEL , STAND MIKAYLA non HDL cholesterol 90 mg/dL _(zully c) <130 normal For patie nts with diabe sherri plus 1 major ASCVD risk facto r, treat ing to a non-H DL-C goal of <100 mg/dL (LDL- C of <70 mg/dL ) is consi dered a thera peuti c optio n. Not Available [facility] [address], [place], [address], 07/29/2023 11:43:11 07/28/19 24 07/29/2023 COMPR EHENS JACQUELINE METAB OLIC PANEL glucose 81 mg/dL 65-99 normal Fasti ng refer ence inter nkechi Not Available [facility] [address] [facility] [place], [address], 07/29/2023 11:43:12 07/28/19 24 07/29/2023 COMPR EHENS JACQUELINE METAB OLIC PANEL urea nitrogen (BUN) 16 mg/dL 7-25 normal Not Available [facility] [address] [place], [address], 07/29/2023 11:43:12 07/28/19 24 07/29/2023 COMPR EHENS JACQUELINE METAB OLIC PANEL creatinine 1.08 mg/dL 0.70-1 .22 normal Not Available [facility] [address] [facility] [place], [address], 07/29/2023 11:43:12 07/28/19 24 07/29/2023 COMPR EHENS JACQUELINE METAB OLIC PANEL eGFR 69 mL/mi n/1.7 3m2 > or = 60 normal Not Available [facility] [address] [facility] [place], [address], 07/29/2023 11:43:12 07/28/19 24 07/29/2023 COMPR EHENS JACQUELINE METAB OLIC PANEL BUN/creatini ne ratio SEE NOTE: (calc ) 6-22 Not Repor cindy: BUN and Creat inine are withi n refer ence range . Not Available [facility] [address] [facility] [place], [address], 07/29/2023 11:43:12 07/28/19 24 07/29/2023 COMPR EHENS JACQUELINE METAB OLIC PANEL sodium 131 mmol/ L 135-14 6 low Not Available [facility] [address] [facility] [place], [address], 07/29/2023 11:43:12 07/28/19 24 07/29/2023 COMPR EHENS JACQUELINE METAB OLIC PANEL potassium 4.6 mmol/ L 3.5-5. 3 normal Not Available [facility] [address] [facility] [place], [address], 07/29/2023 11:43:12 07/28/19 24 07/29/2023 COMPR EHENS JACQUELINE METAB OLIC PANEL chloride 96 mmol/ L 98-110 low Not Available [facility] [address] [place], [address], 07/29/2023 11:43:12 07/28/19 24 07/29/2023 COMPR EHENS JACQUELINE METAB OLIC PANEL carbon dioxide 24 mmol/ L 20-32 normal Not Available [facility] [address] [facility] [place], [address], 07/29/2023 11:43:12 07/28/19 24 07/29/2023 COMPR EHENS JACQUELINE METAB OLIC PANEL calcium 9.0 mg/dL 8.6-10 .3 normal Not Available [facility] [address] [facility] [place], [address], 07/29/2023 11:43:12 07/28/19 24 07/29/2023 COMPR EHENS JACQUELINE METAB OLIC PANEL protein, total 6.6 g/dL 6.1-8. 1 normal Not Available [facility] [address] [place] [address], [address], 07/29/2023 11:43:12 07/28/19 24 07/29/2023 COMPR EHENS JACQUELINE METAB OLIC PANEL albumin 3.5 g/dL 3.6-5. 1 low Not Available [facility] [facility] [place], [address], 07/29/2023 11:43:12 07/28/19 24 07/29/2023 COMPR EHENS JACQUELINE METAB OLIC PANEL globulin 3.1 g/dL_ (calc ) 1.9-3. 7 normal Not Available [facility] [address] [place], [address], 07/29/2023 11:43:12 07/28/19 24 07/29/2023 COMPR EHENS JACQUELINE METAB OLIC PANEL albumin/glob ulin ratio 1.1 (calc ) 1.0-2. 5 normal Not Available [facility] [address] [facility] [place], [address], 07/29/2023 11:43:12 07/28/19 24 07/29/2023 COMPR EHENS JACQUELINE METAB OLIC PANEL bilirubin, total 0.5 mg/dL 0.2-1. 2 normal Not Available [facility] [address] [facility] [place], [address], 07/29/2023 11:43:12 07/28/19 24 07/29/2023 COMPR EHENS JACQUELINE METAB OLIC PANEL alkaline phosphatase 52 U/L 35-144 normal Not Available [facility] [address] [facility] [place], [address], 07/29/2023 11:43:12 07/28/19 24 07/29/2023 COMPR EHENS JACQUELINE METAB OLIC PANEL AST 25 U/L 10-35 normal Not Available [facility] [address] [facility] [place], [address], 07/29/2023 11:43:12 07/28/19 24 07/29/2023 COMPR EHENS JACQUELINE METAB OLIC PANEL ALT 12 U/L 9-46 normal Not Available [facility] [address] [place], [address], 07/29/2023 11:43:12 07/28/19 24 07/29/2023 TSH TSH 5.27 mIU/L 0.40-4 .50 high Not Available [facility] [address] [facility] [place], [address], 07/29/2023 11:43:13 07/28/19 24 07/29/2023 CBC (INCL UDES DIFF/ PLT) white blood cell count 6.2 thous and/u L 3.8-10 .8 normal Not Available [facility] [address], [place], [address], 07/29/2023 11:43:13 07/28/19 24 07/29/2023 CBC (INCL UDES DIFF/ PLT) red blood cell count 4.14 rodrigo on/uL 4.20-5 .80 low Not Available [facility] [address], [place], [address], 07/29/2023 11:43:13 07/28/19 24 07/29/2023 CBC (INCL UDES DIFF/ PLT) hemoglobin 13.9 g/dL 13.2-1 7.1 normal Not Available [facility] [address], [place], [address], 07/29/2023 11:43:13 07/28/19 24 07/29/2023 CBC (INCL UDES DIFF/ PLT) hematocrit 40.4 % 38.5-5 0.0 normal Not Available [facility] [address], [place], [address], 07/29/2023 11:43:13 07/28/19 24 07/29/2023 CBC (INCL UDES DIFF/ PLT) MCV 97.6 fL 80.0-1 00.0 normal Not Available [facility] [address], [place], [address], 07/29/2023 11:43:13 07/28/19 24 07/29/2023 CBC (INCL UDES DIFF/ PLT) MCH 33.6 pg 27.0-3 3.0 high Not Available [facility] [place] [facility] [address], [place], [address], 07/29/2023 11:43:13 07/28/19 24 07/29/2023 CBC (INCL UDES DIFF/ PLT) MCHC 34.4 g/dL 32.0-3 6.0 normal Not Available [facility] [place] [facility] [address], [place], [address], 07/29/2023 11:43:13 07/28/19 24 07/29/2023 CBC (INCL UDES DIFF/ PLT) RDW 14.3 % 11.0-1 5.0 normal Not Available [facility] [place] [facility] [address], [place], [address], 07/29/2023 11:43:13 07/28/19 24 07/29/2023 CBC (INCL UDES DIFF/ PLT) platelet count 197 thous and/u L 140-40 0 normal Not Available [facility] [place] [facility] [address], [place], [address], 07/29/2023 11:43:13 07/28/19 24 07/29/2023 CBC (INCL UDES DIFF/ PLT) MPV 10.8 fL 7.5-12 .5 normal Not Available [facility] [place] [facility] [address], [place], [address], 07/29/2023 11:43:13 07/28/19 24 07/29/2023 CBC (INCL UDES DIFF/ PLT) absolute neutrophils 3081 cells /uL 1500-7 800 normal Not Available [facility] [place] [facility] [address], [place], [address], 07/29/2023 11:43:13 07/28/19 24 07/29/2023 CBC (INCL UDES DIFF/ PLT) absolute lymphocytes 2263 cells /uL 850-39 00 normal Not Available [facility] [place] [facility] [address], [place], [address], 07/29/2023 11:43:13 07/28/19 24 07/29/2023 CBC (INCL UDES DIFF/ PLT) absolute monocytes 707 cells /uL 200-95 0 normal Not Available [facility] [place] [facility] [address], [place], [address], 07/29/2023 11:43:13 07/28/19 24 07/29/2023 CBC (INCL UDES DIFF/ PLT) absolute eosinophils 130 cells /uL 15-500 normal Not Available [facility] [place] [facility] [address], [place], [address], 07/29/2023 11:43:13 07/28/19 24 07/29/2023 CBC (INCL UDES DIFF/ PLT) absolute basophils 19 cells /uL 0-200 normal Not Available [facility] [place] [facility] [address], [place], [address], 07/29/2023 11:43:13 07/28/19 24 07/29/2023 CBC (INCL UDES DIFF/ PLT) neutrophils 49.7 % normal Not Available [facility] [place] [facility] [address], [place], [address], 07/29/2023 11:43:13 07/28/19 24 07/29/2023 CBC (INCL UDES DIFF/ PLT) lymphocytes 36.5 % normal Not Available [facility] [place] [facility] [address], [place], [address], 07/29/2023 11:43:13 07/28/19 24 07/29/2023 CBC (INCL UDES DIFF/ PLT) monocytes 11.4 % normal Not Available [facility] [place] [facility] [address], [place], [address], 07/29/2023 11:43:13 07/28/19 24 07/29/2023 CBC (INCL UDES DIFF/ PLT) eosinophils 2.1 % normal Not Available [facility] [place] [facility] [address], [place], [address], 07/29/2023 11:43:13 07/28/19 24 07/29/2023 CBC (INCL UDES DIFF/ PLT) basophils 0.3 % normal Not Available [facility] [place] [facility] [address] [place], [address], 07/29/2023 11:43:13 07/28/19 24 07/29/2023 EXTRA SPECI MEN extra tube received An extra speci men was recei ryan with no test reque sted. The speci men will be maint ained in stora ge in case addit ional testi ng is neede dCatalina Kolb e call the [facility] for anthony gary . Not Available [facility] [place] [facility] [address] [place], [address], 07/29/2023 11:43:14 07/28/19 24 07/29/2023 EXTRA SPECI MEN specimen type received PLASMA , VIAL POUR-O FF Not Available [facility] [place] [facility] [address] [place], [address], 07/29/2023 11:43:14 10/06/19 24 10/07/2023 BASIC METAB OLIC PANEL glucose 73 mg/dL 65-99 normal Fasti ng refer ence inter nkechi Not Available [facility] [place] [facility] [address] [place], [address], 10/07/2023 12:34:39 10/06/19 24 10/07/2023 BASIC METAB OLIC PANEL urea nitrogen (BUN) 23 mg/dL 7-25 normal Not Available [facility] [place] [facility] [address] [place], [address], 10/07/2023 12:34:39 10/06/19 24 10/07/2023 BASIC METAB OLIC PANEL creatinine 1.22 mg/dL 0.70-1 .22 normal Not Available [facility] [place] [facility] [address] [place], [address], 10/07/2023 12:34:39 10/06/19 24 10/07/2023 BASIC METAB OLIC PANEL eGFR 60 mL/mi n/1.7 3m2 > or = 60 normal Not Available [facility] [address] [place], [address], 10/07/2023 12:34:39 10/06/19 24 10/07/2023 BASIC METAB OLIC PANEL BUN/creatini ne ratio SEE NOTE: (calc ) 6-22 Not Repor cindy: BUN and Creat inine are withi n refer ence range . Not Available [facility] [place] [facility] [address] [place], [address], 10/07/2023 12:34:39 10/06/19 24 10/07/2023 BASIC METAB OLIC PANEL sodium 131 mmol/ L 135-14 6 low Not Available [facility] [place] [facility] [address] [place], [address], 10/07/2023 12:34:39 10/06/19 24 10/07/2023 BASIC METAB OLIC PANEL potassium 4.3 mmol/ L 3.5-5. 3 normal Not Available [facility] [address] [place], [address], 10/07/2023 12:34:39 10/06/19 24 10/07/2023 BASIC METAB OLIC PANEL chloride 96 mmol/ L 98-110 low Not Available [facility] [place] [facility] [address] [place], [address], 10/07/2023 12:34:39 10/06/19 24 10/07/2023 BASIC METAB OLIC PANEL carbon dioxide 28 mmol/ L 20-32 normal Not Available [facility] [address] [place], [address], 10/07/2023 12:34:39 10/06/19 24 10/07/2023 BASIC METAB OLIC PANEL calcium 8.9 mg/dL 8.6-10 .3 normal Not Available [facility] [place] [facility] [address] [place], [address], 10/07/2023 12:34:39 10/06/19 24 10/07/2023 CBC (INCL UDES DIFF/ PLT) white blood cell count 6.7 thous and/u L 3.8-10 .8 normal Not Available [facility] [place] [facility] [address] [place], [address], 10/07/2023 12:34:40 10/06/19 24 10/07/2023 CBC (INCL UDES DIFF/ PLT) red blood cell count 3.89 rodrigo on/uL 4.20-5 .80 low Not Available [facility] [place] [facility] [address] [place], [address], 10/07/2023 12:34:40 10/06/19 24 10/07/2023 CBC (INCL UDES DIFF/ PLT) hemoglobin 13.0 g/dL 13.2-1 7.1 low Not Available [facility] [place] [facility] [address] [place], [address], 10/07/2023 12:34:40 10/06/19 24 10/07/2023 CBC (INCL UDES DIFF/ PLT) hematocrit 38.3 % 38.5-5 0.0 low Not Available [facility] [place] [facility] [address] [place], [address], 10/07/2023 12:34:40 10/06/19 24 10/07/2023 CBC (INCL UDES DIFF/ PLT) MCV 98.5 fL 80.0-1 00.0 normal Not Available [facility] [place] [facility] [address] [place], [address], 10/07/2023 12:34:40 10/06/19 24 10/07/2023 CBC (INCL UDES DIFF/ PLT) MCH 33.4 pg 27.0-3 3.0 high Not Available [facility] [place] [facility] [address] [place], [address], 10/07/2023 12:34:40 10/06/19 24 10/07/2023 CBC (INCL UDES DIFF/ PLT) MCHC 33.9 g/dL 32.0-3 6.0 normal Not Available [facility] [place] [facility] [address] [place], [address], 10/07/2023 12:34:40 10/06/19 24 10/07/2023 CBC (INCL UDES DIFF/ PLT) RDW 13.3 % 11.0-1 5.0 normal Not Available [facility] [place] [facility] [address] [place], [address], 10/07/2023 12:34:40 10/06/19 24 10/07/2023 CBC (INCL UDES DIFF/ PLT) platelet count 147 thous and/u L 140-40 0 normal Not Available [facility] [place] [facility] [address] [place], [address], 10/07/2023 12:34:40 10/06/19 24 10/07/2023 CBC (INCL UDES DIFF/ PLT) MPV 10.2 fL 7.5-12 .5 normal Not Available [facility] [place] [facility] [address], [place], [address], 10/07/2023 12:34:40 10/06/19 24 10/07/2023 CBC (INCL UDES DIFF/ PLT) absolute neutrophils 3678 cells /uL 1500-7 800 normal Not Available [facility] [address], [place], [address], 10/07/2023 12:34:40 10/06/19 24 10/07/2023 CBC (INCL UDES DIFF/ PLT) absolute lymphocytes 1956 cells /uL 850-39 00 normal Not Available [facility] [place] [facility] [address], [place], [address], 10/07/2023 12:34:40 10/06/19 24 10/07/2023 CBC (INCL UDES DIFF/ PLT) absolute monocytes 911 cells /uL 200-95 0 normal Not Available [facility] [place] [facility] [address], [place], [address], 10/07/2023 12:34:40 10/06/19 24 10/07/2023 CBC (INCL UDES DIFF/ PLT) absolute eosinophils 127 cells /uL 15-500 normal Not Available [facility] [place] [facility] [address], [place], [address], 10/07/2023 12:34:40 10/06/19 24 10/07/2023 CBC (INCL UDES DIFF/ PLT) absolute basophils 27 cells /uL 0-200 normal Not Available [facility] [place] [facility] [address], [place], [address], 10/07/2023 12:34:40 10/06/19 24 10/07/2023 CBC (INCL UDES DIFF/ PLT) neutrophils 54.9 % normal Not Available [facility] [place] [facility] [address], [place], [address], 10/07/2023 12:34:40 10/06/19 24 10/07/2023 CBC (INCL UDES DIFF/ PLT) lymphocytes 29.2 % normal Not Available [facility] [place] [facility] [address], [place], [address], 10/07/2023 12:34:40 10/06/19 24 10/07/2023 CBC (INCL UDES DIFF/ PLT) monocytes 13.6 % normal Not Available [facility] [place] [facility] [address], [place], [address], 10/07/2023 12:34:40 10/06/19 24 10/07/2023 CBC (INCL UDES DIFF/ PLT) eosinophils 1.9 % normal Not Available [facility] [place] [facility] [address] [facility] [place], [address], 10/07/2023 12:34:40 10/06/19 24 10/07/2023 CBC (INCL UDES DIFF/ PLT) basophils 0.4 % normal Not Available [facility] [place] [facility] [address] [place], [address], 10/07/2023 12:34:40 10/06/19 24 10/07/2023 VALPR OIC ACID valproic acid 102.0 mg/L 50.0-1 00.0 high Not Available [facility] [address] [place], [address], 10/07/2023 12:34:40 02/06/20 24 02/09/2024 LIPID PANEL , STAND MIKAYLA cholesterol, total 158 mg/dL <200 normal Not Available [facility] [place] [facility] [address] [place], [address], 02/09/2024 10:25:29 02/06/20 24 02/09/2024 LIPID PANEL , STAND MIKAYLA HDL cholesterol 71 mg/dL > or = 40 normal Not Available [facility] [address] [place], [address], 02/09/2024 10:25:29 02/06/20 24 02/09/2024 LIPID PANEL , STAND MIKYALA triglyceride s 66 mg/dL <150 normal Not Available [facility] [place] [facility] [address] [place], [address], 02/09/2024 10:25:29 02/06/20 24 02/09/2024 LIPID PANEL , STAND MIKAYLA LDL-choleste rol 72 mg/dL _(zully c) normal Refer ence range : <100 Leonor able range <100 mg/dL for prima ry preve ntion ; <70 mg/dL for patie nts with CHD or diabe tic patie nts with > or = 2 CHD risk facto rs. LDL-C is now calcu lated using the Valentina n-Hop kins calcu terrence n, which is a valid ated novel metho d provi ding donna r accur acy than the Fried brandon equat ion in the estim ation of LDL-C . Valentina swartz SS et al. PROSPER. 2013; 310(1 9): 2061- 2068 (http ://ed ucati on.Tiempy. Ubalo/f aq/FA Q164) Not Available [facility] [place] [facility] [address], [place], [address], 02/09/2024 10:25:29 02/06/20 24 02/09/2024 LIPID PANEL , STAND MIKAYLA chol/HDLC ratio 2.2 (calc ) <5.0 normal Not Available [facility] [place] [facility] [address], [place], [address], 02/09/2024 10:25:29 02/06/20 24 02/09/2024 LIPID PANEL , STAND MIKAYLA non HDL cholesterol 87 mg/dL _(zully c) <130 normal For patie nts with diabe sherri plus 1 major ASCVD risk facto r, treat ing to a non-H DL-C goal of <100 mg/dL (LDL- C of <70 mg/dL ) is consi dered a thera peuti c optio n. Not Available [facility] [place] [facility] [address], [place], [address], 02/09/2024 10:25:29 02/06/20 24 02/09/2024 COMPR EHENS JACQUELINE METAB OLIC PANEL glucose 82 mg/dL 65-99 normal Fasti ng refer ence inter nkechi Not Available [facility] [place] [facility] [address], [place], [address], 02/09/2024 10:25:30 02/06/20 24 02/09/2024 COMPR EHENS JACQUELINE METAB OLIC PANEL urea nitrogen (BUN) 19 mg/dL 7-25 normal Not Available [facility] [place] [facility] [address] [place], [address], 02/09/2024 10:25:30 02/06/20 24 02/09/2024 COMPR EHENS JACQUELINE METAB OLIC PANEL creatinine 1.23 mg/dL 0.70-1 .22 high Not Available [facility] [address] [place], [address], 02/09/2024 10:25:30 02/06/20 24 02/09/2024 COMPR EHENS JACQUELINE METAB OLIC PANEL eGFR 59 mL/mi n/1.7 3m2 > or = 60 low Not Available [facility] [address] [place], [address], 02/09/2024 10:25:30 02/06/20 24 02/09/2024 COMPR EHENS JACQUELINE METAB OLIC PANEL BUN/creatini ne ratio 15 (calc ) 6-22 normal Not Available [facility] [address] [place], [address], 02/09/2024 10:25:30 02/06/20 24 02/09/2024 COMPR EHENS JACQUELINE METAB OLIC PANEL sodium 129 mmol/ L 135-14 6 low Not Available [facility] [address] [place], [address], 02/09/2024 10:25:30 02/06/20 24 02/09/2024 COMPR EHENS JACQUELINE METAB OLIC PANEL potassium 4.2 mmol/ L 3.5-5. 3 normal Not Available [employer] [facility] [address] [place], [address], 02/09/2024 10:25:30 02/06/20 24 02/09/2024 COMPR EHENS JACQUELINE METAB OLIC PANEL chloride 95 mmol/ L 98-110 low Not Available [facility] [address] [place], [address], 02/09/2024 10:25:30 02/06/20 24 02/09/2024 COMPR EHENS JACQUELINE METAB OLIC PANEL carbon dioxide 22 mmol/ L 20-32 normal Not Available [facility] [address] [place], [address], 02/09/2024 10:25:30 02/06/20 24 02/09/2024 COMPR EHENS JACQUELINE METAB OLIC PANEL calcium 9.2 mg/dL 8.6-10 .3 normal Not Available [facility] [address] [place], [address], 02/09/2024 10:25:30 02/06/20 24 02/09/2024 COMPR EHENS JACQUELINE METAB OLIC PANEL protein, total 6.6 g/dL 6.1-8. 1 normal Not Available [facility] [address] [place], [address], 02/09/2024 10:25:30 02/06/20 24 02/09/2024 COMPR EHENS JACQUELINE METAB OLIC PANEL albumin 3.7 g/dL 3.6-5. 1 normal Not Available [facility] [address] [place], [address], 02/09/2024 10:25:30 02/06/20 24 02/09/2024 COMPR EHENS JACQUELINE METAB OLIC PANEL globulin 2.9 g/dL_ (calc ) 1.9-3. 7 normal Not Available [facility] [address] [place], [address], 02/09/2024 10:25:30 02/06/20 24 02/09/2024 COMPR EHENS JACQUELINE METAB OLIC PANEL albumin/glob ulin ratio 1.3 (calc ) 1.0-2. 5 normal Not Available [facility] [address] [facility] [place], [address], 02/09/2024 10:25:30 02/06/20 24 02/09/2024 COMPR EHENS JACQUELINE METAB OLIC PANEL bilirubin, total 0.5 mg/dL 0.2-1. 2 normal Not Available [facility] [address] [place], [address], 02/09/2024 10:25:30 02/06/20 24 02/09/2024 COMPR EHENS JACQUELINE METAB OLIC PANEL alkaline phosphatase 37 U/L 35-144 normal Not Available [facility] [address] [place], [address], 02/09/2024 10:25:30 02/06/20 24 02/09/2024 COMPR EHENS JACQUELINE METAB OLIC PANEL AST 23 U/L 10-35 normal Not Available [facility] [address] [place], [address], 02/09/2024 10:25:30 02/06/20 24 02/09/2024 COMPR EHENS JACQUELINE METAB OLIC PANEL ALT 11 U/L 9-46 normal Not Available [employer] [facility] [address] [place], [address], 02/09/2024 10:25:30 02/06/20 24 02/09/2024 TSH TSH 5.03 mIU/L 0.40-4 .50 high Not Available [employer] [facility] [address] [place], [address], 02/09/2024 10:25:31 02/06/20 24 02/09/2024 CBC (INCL UDES DIFF/ PLT) white blood cell count 6.9 thous and/u L 3.8-10 .8 normal Not Available [facility] [place] [facility] [address] [place], [address], 02/09/2024 10:25:31 02/06/20 24 02/09/2024 CBC (INCL UDES DIFF/ PLT) red blood cell count 4.36 rodrigo on/uL 4.20-5 .80 normal Not Available [facility] [address] [place], [address], 02/09/2024 10:25:31 02/06/20 24 02/09/2024 CBC (INCL UDES DIFF/ PLT) hemoglobin 13.8 g/dL 13.2-1 7.1 normal Not Available [facility] [address] [place], [address], 02/09/2024 10:25:31 02/06/20 24 02/09/2024 CBC (INCL UDES DIFF/ PLT) hematocrit 42.1 % 38.5-5 0.0 normal Not Available [facility] [address] [place], [address], 02/09/2024 10:25:31 02/06/20 24 02/09/2024 CBC (INCL UDES DIFF/ PLT) MCV 96.6 fL 80.0-1 00.0 normal Not Available [facility] [place], [address], 02/09/2024 10:25:31 02/06/20 24 02/09/2024 CBC (INCL UDES DIFF/ PLT) MCH 31.7 pg 27.0-3 3.0 normal Not Available [facility] [address] [place], [address], 02/09/2024 10:25:31 02/06/20 24 02/09/2024 CBC (INCL UDES DIFF/ PLT) MCHC 32.8 g/dL 32.0-3 6.0 normal For adult s, a sligh t decre ase in the calcu lated MCHC value (in the range of 30 to 32 g/dL) is most likel y not clini arnel signi garrett t; chantal er, it tao d be inter prete d with [facility] with other red cell rogers eters and the patie nt's clini zully condi tion. Not Available [facility] [place] [facility] [address] [facility] [facility], [place], [address], 02/09/2024 10:25:31 02/06/20 24 02/09/2024 CBC (INCL UDES DIFF/ PLT) RDW 14.4 % 11.0-1 5.0 normal Not Available [facility] [place] [facility] [address] [facility] [place], [address], 02/09/2024 10:25:31 02/06/20 24 02/09/2024 CBC (INCL UDES DIFF/ PLT) platelet count 184 thous and/u L 140-40 0 normal Not Available [facility] [place] [facility] [address] [facility] [address] [facility], [place], [address], 02/09/2024 10:25:31 02/06/20 24 02/09/2024 CBC (INCL UDES DIFF/ PLT) MPV 11.0 fL 7.5-12 .5 normal Not Available [facility] [place] [facility] [address] [facility] [place], [address], 02/09/2024 10:25:31 02/06/20 24 02/09/2024 CBC (INCL UDES DIFF/ PLT) absolute neutrophils 3271 cells /uL 1500-7 800 normal Not Available [facility] [place] [facility] [address] [facility] [place], [address], 02/09/2024 10:25:31 02/06/20 24 02/09/2024 CBC (INCL UDES DIFF/ PLT) absolute lymphocytes 2870 cells /uL 850-39 00 normal Not Available [facility] [place] [facility] [address], [place], [address], 02/09/2024 10:25:31 02/06/2002/09/2024 CBC (INCL UDES DIFF/ PLT) absolute monocytes 649 cells /uL 200-95 0 normal Not Available [facility] [place] [facility] [address], [place], [address], 02/09/2024 10:25:31 02/06/20 24 02/09/2024 CBC (INCL UDES DIFF/ PLT) absolute eosinophils 90 cells /uL 15-500 normal Not Available [facility] [place] [facility] [address], [place], [address], 02/09/2024 10:25:31 02/06/20 24 02/09/2024 CBC (INCL UDES DIFF/ PLT) absolute basophils 21 cells /uL 0-200 normal Not Available [facility] [place] [facility] [address], [place], [address], 02/09/2024 10:25:31 02/06/20 24 02/09/2024 CBC (INCL UDES DIFF/ PLT) neutrophils 47.4 % normal Not Available [facility] [place] [facility] [address], [place], [address], 02/09/2024 10:25:31 02/06/20 24 02/09/2024 CBC (INCL UDES DIFF/ PLT) lymphocytes 41.6 % normal Not Available [facility] [place] [facility] [address], [place], [address], 02/09/2024 10:25:31 02/06/20 24 02/09/2024 CBC (INCL UDES DIFF/ PLT) monocytes 9.4 % normal Not Available [facility] [place] [facility] [address], [place], [address], 02/09/2024 10:25:31 10/07/02/09/2024 CBC (INCL UDES DIFF/ PLT) eosinophils 1.3 % normal Not Available [facility] [place] [facility] [address] [place], [address], 02/09/2024 10:25:31 02/06/20 24 02/09/2024 CBC (INCL UDES DIFF/ PLT) basophils 0.3 % normal Not Available [facility] [place] [facility] [address] [place], [address], 02/09/2024 10:25:31 02/06/20 24 02/09/2024 LEVET IRACE FOWLER levetiraceta m 87.7 mcg/m L high Refer ence Range : 12.0- 46.0 Toxic level is not well estab lishe d. Inter preta tion shoul d inclu de a clini zully evalu ation . For addit ional infor glen babcock e refer to http: //[facility] ar swartz.Que stDia gnost ics.c om/fa q/FAQ 180 (This link is being provi ded for infor adry nal/e ducat ional purpo ses only. ) This test was devel alexa and its josé miguel tical perfo rmanc e tawnya cteri stics have been deter mined by [facility]. It has not been clear ed or appro ryan by the FDA. This assay has been valid ated pursu ant to the CLIA regul ation s and is used for clini zully purpo ses. Not Available [facility] [place] [facility] [address] [place], [address], 02/09/2024 10:25:32 02/06/2002/09/2024 VALPR OIC ACID valproic acid 113.2 mg/L 50.0-1 00.0 high Not Available [facility] [place] [facility] [address] [place], [address], 02/09/2024 10:25:33 07/10/19 25 07/13/2024 COMPR EHENS JACQUELINE METAB OLIC PANEL glucose 122 mg/dL 65-99 high Fasti ng refer ence inter nkechi For someo ne witho ut known diabe sherri, a gluco se value betwe en 100 and 125 mg/dL is consi stent with predi abete s and shoul d be confi rmed with a follo w-up test. Not Available [employer] [facility] [address] [place], [address], 07/13/2024 12:32:26 07/10/19 25 07/13/2024 COMPR EHENS JACQUELINE METAB OLIC PANEL urea nitrogen (BUN) 17 mg/dL 7-25 normal Not Available [employer] [facility] [address] [place], [address], 07/13/2024 12:32:26 07/10/19 25 07/13/2024 COMPR EHENS JACQUELINE METAB OLIC PANEL creatinine 1.17 mg/dL 0.70-1 .22 normal Not Available [employer] [facility] [address] [place], [address], 07/13/2024 12:32:26 07/10/19 25 07/13/2024 COMPR EHENS JACQUELINE METAB OLIC PANEL eGFR 62 mL/mi n/1.7 3m2 > or = 60 normal Not Available [employer] [facility] [address] [place], [address], 07/13/2024 12:32:26 07/10/19 25 07/13/2024 COMPR EHENS JACQUELINE METAB OLIC PANEL BUN/creatini ne ratio SEE NOTE: (calc ) 6-22 Not Repor cindy: BUN and Creat inine are withi n refer ence range . Not Available [employer] [facility] [address] [place], [address], 07/13/2024 12:32:26 07/10/19 25 07/13/2024 COMPR EHENS JACQUELINE METAB OLIC PANEL sodium 134 mmol/ L 135-14 6 low Not Available [employer] [facility] [address] [facility] [place], [address], 07/13/2024 12:32:26 07/10/19 25 07/13/2024 COMPR EHENS JACQUELINE METAB OLIC PANEL potassium 4.2 mmol/ L 3.5-5. 3 normal Not Available [facility] [address] [place], [address], 07/13/2024 12:32:26 07/10/19 25 07/13/2024 COMPR EHENS JACQUELINE METAB OLIC PANEL chloride 98 mmol/ L 98-110 normal Not Available [facility] [address] [place] [address], [id number], 07/13/2024 12:32:26 07/10/19 25 07/13/2024 COMPR EHENS JACQUELINE METAB OLIC PANEL carbon dioxide 30 mmol/ L 20-32 normal Not Available [facility] [address] [place], [address], 07/13/2024 12:32:26 07/10/19 25 07/13/2024 COMPR EHENS JCAQUELINE METAB OLIC PANEL calcium 9.3 mg/dL 8.6-10 .3 normal Not Available [facility] [address] [place] [address], [id number], 07/13/2024 12:32:26 07/10/19 25 07/13/2024 COMPR EHENS JACQUELINE METAB OLIC PANEL protein, total 6.4 g/dL 6.1-8. 1 normal Not Available [facility] [place], [address], 07/13/2024 12:32:26 07/10/19 25 07/13/2024 COMPR EHENS JACQUELINE METAB OLIC PANEL albumin 3.3 g/dL 3.6-5. 1 low Not Available [facility] [address] [place], [place] [address], [place], [address], 07/13/2024 12:32:26 07/10/19 25 07/13/2024 COMPR EHENS JACQUELINE METAB OLIC PANEL globulin 3.1 g/dL_ (calc ) 1.9-3. 7 normal Not Available [facility] [address] [facility] [place], [address], 07/13/2024 12:32:26 07/10/19 25 07/13/2024 COMPR EHENS JACQUELINE METAB OLIC PANEL albumin/glob ulin ratio 1.1 (calc ) 1.0-2. 5 normal Not Available [facility] [address] [facility] [place], [address], 07/13/2024 12:32:26 07/10/19 25 07/13/2024 COMPR EHENS JACQUELINE METAB OLIC PANEL bilirubin, total 0.6 mg/dL 0.2-1. 2 normal Not Available [facility] [address] [facility] [facility], [place], [address], 07/13/2024 12:32:26 07/10/19 25 07/13/2024 COMPR EHENS JACQUELINE METAB OLIC PANEL alkaline phosphatase 61 U/L 35-144 normal Not Available [facility] [address] [facility] [place], [address], 07/13/2024 12:32:26 07/10/19 25 07/13/2024 COMPR EHENS JACQUELINE METAB OLIC PANEL AST 19 U/L 10-35 normal Not Available [facility] [address] [facility] [place], [address], 07/13/2024 12:32:26 07/10/19 25 07/13/2024 COMPR EHENS JACQUELINE METAB OLIC PANEL ALT 9 U/L 9-46 normal Not Available [facility] [address] [facility] [place], [address], 07/13/2024 12:32:26 07/10/19 25 07/13/2024 LEVET IRACE FOWLER levetiraceta m 54.0 mcg/m L high Refer ence Range : 12.0- 46.0 Toxic level is not well estab lishe d. Inter preta tion shoul d inclu de a clini zully evalu ation . For addit ional infor glen babcock e refer to http: //[facility] cativana n.Que stDia gnost ics.c om/fa q/FAQ 180 (This link is being provi ded for infor mativana nal/e ducat ional purpo ses only. ) This test was devel oped and its josé miguel tical perfo rmanc e tawnya cteri stics have been deter mined by [employer]. It has not been clear ed or appro ryan by the FDA. This assay has been valid ated pursu ant to the CLIA regul ation s and is used for clini zully purpo ses. Not Available [facility] [address] [place], [address], 07/13/2024 12:32:27 08/31/1909/04/2024 COMPR EHENS JACQUELINE METAB OLIC PANEL glucose 121 mg/dL 65-99 high Fasti ng refer ence inter nkechi For someo ne witho ut known diabe sherri, a gluco se value betwe en 100 and 125 mg/dL is consi stent with predi abete s and shoul d be confi rmed with a follo w-up test. Not Available [facility] [address] [place], [address], 09/04/2024 13:25:37 08/31/19 25 09/04/2024 COMPR EHENS JACQUELINE METAB OLIC PANEL urea nitrogen (BUN) 21 mg/dL 7-25 normal Not Available [facility] [address] [employer], [place], [address], 09/04/2024 13:25:37 08/31/19 25 09/04/2024 COMPR EHENS JACQUELINE METAB OLIC PANEL creatinine 1.39 mg/dL 0.70-1 .22 high Not Available [facility] [address] [place], [address], 09/04/2024 13:25:37 08/31/19 25 09/04/2024 COMPR EHENS JACQUELINE METAB OLIC PANEL eGFR 51 mL/mi n/1.7 3m2 > or = 60 low Not Available [facility] [address] [place], [address], 09/04/2024 13:25:37 08/31/19 25 09/04/2024 COMPR EHENS JACQUELINE METAB OLIC PANEL BUN/creatini ne ratio 15 (calc ) 6-22 normal Not Available [facility] [address] [place], [address], 09/04/2024 13:25:37 08/31/19 25 09/04/2024 COMPR EHENS JACQUELINE METAB OLIC PANEL sodium 138 mmol/ L 135-14 6 normal Not Available [facility] [address] [place], [address], 09/04/2024 13:25:37 08/31/19 25 09/04/2024 COMPR EHENS JACQUELINE METAB OLIC PANEL potassium 4.3 mmol/ L 3.5-5. 3 normal Not Available [facility] [address] [place], [address], 09/04/2024 13:25:37 08/31/19 25 09/04/2024 COMPR EHENS JACQUELINE METAB OLIC PANEL chloride 100 mmol/ L 98-110 normal Not Available [facility] [address] [place], [address], 09/04/2024 13:25:37 08/31/19 25 09/04/2024 COMPR EHENS JACQUELINE METAB OLIC PANEL carbon dioxide 26 mmol/ L 20-32 normal Not Available [facility] [address] [facility] [place], [address], 09/04/2024 13:25:37 08/31/19 25 09/04/2024 COMPR EHENS JACQUELINE METAB OLIC PANEL calcium 8.9 mg/dL 8.6-10 .3 normal Not Available [facility] [address] [facility] [place], [address], 09/04/2024 13:25:37 08/31/19 25 09/04/2024 COMPR EHENS JACQUELINE METAB OLIC PANEL protein, total 6.8 g/dL 6.1-8. 1 normal Not Available [facility] [address] [facility] [place], [address], 09/04/2024 13:25:37 08/31/19 25 09/04/2024 COMPR EHENS JACQUELINE METAB OLIC PANEL albumin 3.7 g/dL 3.6-5. 1 normal Not Available [facility] [address] [place], [address], 09/04/2024 13:25:37 08/31/19 25 09/04/2024 COMPR EHENS JACQUELINE METAB OLIC PANEL globulin 3.1 g/dL_ (calc ) 1.9-3. 7 normal Not Available [facility] [address] [facility] [place], [address], 09/04/2024 13:25:37 08/31/19 25 09/04/2024 COMPR EHENS JACQUELINE METAB OLIC PANEL albumin/glob ulin ratio 1.2 (calc ) 1.0-2. 5 normal Not Available [facility] [address] [place], [address], 09/04/2024 13:25:37 08/31/19 25 09/04/2024 COMPR EHENS JACQUELINE METAB OLIC PANEL bilirubin, total 0.5 mg/dL 0.2-1. 2 normal Not Available [facility] [address] [place], [address], 09/04/2024 13:25:37 08/31/19 25 09/04/2024 COMPR EHENS JACQUELINE METAB OLIC PANEL alkaline phosphatase 46 U/L 35-144 normal Not Available [facility] [address] [place], [address], 09/04/2024 13:25:37 08/31/19 25 09/04/2024 COMPR EHENS JACQUELINE METAB OLIC PANEL AST 21 U/L 10-35 normal Not Available [facility] [address] [place], [address], 09/04/2024 13:25:37 08/31/19 25 09/04/2024 COMPR EHENS JACQUELINE METAB OLIC PANEL ALT 11 U/L 9-46 normal Not Available [facility] [address] [place], [address], 09/04/2024 13:25:37 08/31/19 25 09/04/2024 TSH TSH 2.03 mIU/L 0.40-4 .50 normal Not Available [facility] [address] [place], [address], 09/04/2024 13:25:39 08/31/19 25 09/04/2024 LEVET IRACE FOWLER levetiraceta m 53.9 mcg/m L high Refer ence Range : 12.0- 46.0 Toxic level is not well estab lishe d. Inter preta tion shoul d inclu de a clini zully evalu ation . For addit ional infor glen babcock e refer to http: //vida swartz.Que stDia gnost ics.c om/fa q/FAQ 180 (This link is being provi ded for infor adry nal/e ducat ional purpo ses only. ) This test was devmeena liu and its josé miguel tical perfo rmanc e tawnya cteri stics have been deter mined by [facility]. It has not been clear ed or appro rayn by the FDA. This assay has been valid ated pursu ant to the CLIA regul ation s and is used for clini zully purpo ses. Not Available [facility] [address] [facility], [place], [address], 09/04/2024 13:25:39 08/31/19 25 09/04/2024 VALPR OIC ACID valproic acid 116.9 mg/L 50.0-1 00.0 high Not Available [facility] [address], [place], [address], 09/04/2024 13:25:40 Result Notes None recorded. Problems Name Problem SNOMED Code Status Onset Date Resolution Date Notes Provider Name and Address Organization Details Recorded Time Gastroeso phageal reflux disease 646802303 Active Not Available [employer] 0 17:52:26 Osteoporo sis 20338223 Active Not Available [employer] 0 17:52:26 Hyperlipi demia 73389873 Active Not Available [facility] 0 17:52:26 Generaliz ed osteoarth ritis 311307587 Active Not Available [employer] 0 17:52:26 Disorder of urinary tract 51178446 Active Not Available [employer] 0 17:52:26 Acute bronchiti s 80585782 Completed 02/11/2019 Mini Freire MD [address] [facility], [address], [place], [address] , [facility] 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 9 14:01:07 Multiple actinic keratoses 438864551 Active Not Available [facility] 0 17:52:26 Acute sinusitis 27573930 Completed 02/11/2019 Mini Freire MD [address], [address] [place] [address] , [facility] 9 14:00:49 Fatigue 95674110 Active Not Available [facility] 0 17:52:26 Abdominal pain 36046327 Active Not Available [facility] 0 17:52:26 Fracture of humerus 33234184 Active 2019 Mini Freire MD [address], [address] [place] [address] , [facility] 0 23:20:57 Closed fracture of right acetabulu m [id number] 360648 Active 2019 Mini Freire MD [address], [address] [place] [address] , [facility] 0 23:20:44 Problem Notes None recorded. 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 06/13/2020 08:30:49 11/27/19 19 repair of hip completed [facility] 12/22/2018 13:37:34 04/12/20 17 Colonoscopy completed Mini Freire MD [address], [address] [place] [address], [facility] 05/16/2017 09:30:12 01/26/20 17 Nebulizer tx completed Mini Freire MD [address] [place] [address], [facility] 01/25/2017 10:57:41 03/02/20 16 Knee arthroscopy/surge ry completed Mini Freire MD [address], [address] [place] [address], [facility] 12/24/2018 14:50:20 05/02/19 15 Cataract Surgery completed Mini Freire MD [address] [place] [address], [facility] 02/11/2019 14:05:52 04/12/20 13 Colonoscopy completed Mini Freire MD [address], [address] [place] [address], [facility] 02/11/2019 14:04:42 05/02/19 09 Cataract Surgery completed Mini Freire MD [address] [place] [address], [facility] 12/27/2014 10:59:54 Knee Surgery completed Mini Freire MD [address] [place] [address], [facility] 01/15/2016 10:49:41 Appendectomy completed Mini Freire MD [address] [facility] 01/15/2016 11:05:11 Tonsillectomy completed [facility] 06/15/2011 11:38:57 Other completed [facility] 06/15/2011 11:38:57 Imaging Results None recorded. Procedure Notes None recorded. Medical Equipment None Reported. Allergies Allergen ID Allergen Name Allergen Category Reaction Reaction Severity Criticality Documentation Date Start Date Code Code System Note Provider Name and Address Organization Details Recorded Time 78356 Augmentin medicatio n rash moderate high 03/10/20232022 60317 2 RxNorm Mini Freire MD [address] [facility], [address], [place], [address] [place] [address] [facility] 3 14:53:39 Medications Name Sig Start Date Stop Date Status Note LastModified by Organization Details LastModified Time celecoxib 200 mg capsule TAKE 1 CAPSULE DAILY 01/08 completed Not Available Not Available Not Available cyclobenz aprine 10 mg tablet TAKE 1 TABLET BY MOUTH THREE TIMES DAILY FOR 10 DAYS 01/08 completed Not Available Not Available Not Available amoxicill in 500 mg capsule Take 1 capsule 3 times a day by oral route for 7 days. 06/14 completed Not Available Not Available Not Available Miralax 17 gram/dose oral powder Take 17 g every day by oral route. 11/11 completed Not Available Not Available Not Available atorvasta tin 40 mg tablet TAKE 1 TABLET DAILY IN THE EVENING active Not Available Not Available No t Available doxycycli ne hyclate 100 mg capsule Take 1 capsule twice a day by oral route for 10 days. 04/21 completed Not Available Not Available Not Available atorvasta tin 20 mg tablet Take 1 tablet every day by oral route for 90 days. 05/18 completed Not Available Not Available Not Available azithromy tru 250 mg tablet TAKE 2 TABLETS BY MOUTH ON DAY 1, AND THEN TAKE 1 TABLET BY MOUTH ONCE A DAY ON DAY 2 THROUGH DAY 5 02/12 completed Not Available Not Available Not Available aspirin 325 mg tablet Take 1 tablet every day by oral route. 01/22 completed dose change Not Available Not Available Not Available pravastat in 40 mg tablet TAKE 1 TABLET DAILY active Not Available Not Available No t Available nystatin 100,000 unit/gram topical ointment APPLY TO THE AFFECTED AREA(S) BY TOPICAL ROUTE 2 TIMES PER DAY active Not Available Not Available No t Available fluconazo le 150 mg tablet TAKE 1 TABLET BY MOUTH EVERY WEEK FOR 14 DAYS 06/24 completed Not Available Not Available Not Available benzonata te 200 mg capsule Take 1 capsule 3 times a day by oral route as needed. 08/18 completed Not Available Not Available Not Available levetirac etam 500 mg tablet Take 0.5 tablets twice a day by oral route. 07/13 completed Not Available Not Available Not Available hydrocodo ne 5 mg-acetam inophen 325 mg tablet 01/08 completed Not Available Not Available Not Available ondansetr on HCl 4 mg tablet 01/01 completed Not Available Not Available Not Available alendrona te 70 mg tablet Take 1 tablet every week by oral route for 90 days. active Not Available Not Available No t Available midodrine 5 mg tablet TAKE 1 TABLET BY MOUTH THREE TIMES DAILY NEEDED active Not Available Not Available No t Available potassium chloride ER 10 mEq tablet,ex tended release TAKE 1 TABLET BY MOUTH EVERY DAY active Not Available Not Available No t Available Zyrtec 10 mg tablet Take 1 tablet every day by oral route as needed. 02/08 completed Not Available Not Available Not Available phenytoin sodium extended 100 mg capsule Take 1 capsule every day by oral route. 01/08 completed Not Available Not Available Not Available hydrocodo ne 10 mg-acetam inophen 325 mg tablet 03/31 completed Not Available Not Available Not Available aspirin 81 mg tablet,de layed release Take 1 tablet every day by oral route. 08/12 completed MWF only. stopped in the hospital Not Available Not Available Not Available triamcino lone acetonide 0.1 % topical cream APPLY A THIN LAYER TO THE AFFECTED AREA(S) BY TOPICAL ROUTE 2 TIMES PER DAY 04/05 completed Not Available Not Available Not Available simvastat in 40 mg tablet active Not Available Not Available Not Available levothyro xine 25 mcg tablet Take 2 tablets every day by oral route. 10/22 completed Not Available Not Available Not Available Vitamin C 250 mg chewable tablet Take 1 tablet every day by oral route in the evening. 06/24 completed Not Available Not Available Not Available ceftriaxo ne 1 gram solution for injection Take 0.5 g by injectio n route. 06/24 completed Not Available Not Available Not Available Vitamin C 1,000 mg tablet take 1 tablet by mouth once daily 08/03 completed Not Available Not Available Not Available tamsulosi n 0.4 mg capsule TAKE 1 CAPSULE DAILY AT BEDTIME 2024 active Not Available Not Available Not Avai lable benzonata te 100 mg capsule Take 1 capsule 3 times a day by oral route as needed. 05/22 completed Not Available Not Available Not Available doxycycli ne monohydra te 100 mg capsule TAKE 1 CAPSULE BY MOUTH TWICE DAILY WITH MEALS FOR 14 DAYS 07/28 completed Not Available Not Available Not Available levothyro xine 50 mcg tablet TAKE 1 TABLET DAILY 2024 active Not Available Not Available Not Avai lable hydrocodo ne 7.5 mg-acetam inophen 325 mg tablet TAKE 1 TABLET BY MOUTH EVERY 4 TO 6 HOURS NEEDED FOR 5 DAYS 01/01 completed Not Available Not Available Not Available bisacodyl 10 mg rectal supposito ry Insert 1 supposit ory every day by rectal route as needed. 06/19 completed Not Available Not Available Not Available cephalexi n 500 mg capsule TAKE 1 CAPSULE BY MOUTH EVERY 6 HOURS FOR 7 DAYS 01/01 completed Not Available Not Available Not Available pantopraz ole 40 mg tablet,de layed release TAKE 1 TABLET DAILY active Not Available Not Available No t Available erythromy tru 5 mg/gram (0.5 %) eye ointment APPLY 1/4 INCH STRIP FOUR TIMES A DAY FOR 3 DAYS BUT NOT THE DAY OF SURGERY TO OPERATIV E EYE active Not Available Not Available No t Available ferrous sulfate 325 mg (65 mg iron) tablet Take 1 tablet every day by oral route in the evening. 01/01 completed Not Available Not Available Not Available nystatin 100,000 unit/gram topical cream APPLY SMALL AMOUNT TO THE AFFECTED AREA 2 TIMES DAILY active Not Available Not Available No t Available divalproe x ER 500 mg tablet,ex tended release 24 hr TAKE 4 TABLETS DAILY AT BEDTIME OR DIRECTED 2024 active Not Available Not Available Not Avai lable promethaz ine 25 mg tablet take 1 tablet by mouth every 4 to 6 hours if needed 04/06 completed Not Available Not Available Not Available phenobarb ital 64.8 mg tablet Take 2 tablets twice a day by oral route as directed . 01/08 completed Not Available Not Available Not Available omeprazol e 20 mg capsule,d elayed release TAKE 1 CAPSULE EVERY MORNING 09/12 completed Sun, Kim, Ovidio, Sat Only take if needed Not Available Not Available Not Available Tylenol 325 mg tablet Take 2 tablets every 6 hours by oral route as needed. active Not Available Not Available No t Available aspirin 81 mg tablet Take 1 tablet twice a week by oral route. active Not Available Not Available No t Available levetirac etam 750 mg tablet 01/08 completed Not Available Not Available Not Available mupirocin 2 % topical ointment APPLY SMALL AMOUNT TOPICALL Y TO THE AFFECTED AREA THREE TIMES DAILY active Not Available Not Available No t Available furosemid e 20 mg tablet TAKE 1 TABLET BY MOUTH Daily as needed active Not Available Not Available No t Available metoprolo l succinate ER 25 mg tablet,ex tended release 24 hr Take 1 tablet every day by oral route for 90 days. 2024 active ONLY TAKING 1/2 DAILY Not Available Not Available Not Available dexametha sone sodium phosphate 4 mg/mL injection solution Inject 1 mL by intramus cular route. 06/24 completed Not Available Not Available Not Available benzoyl peroxide 5 % topical cleanser 02/08 completed Not Available Not Available Not Available cefuroxim e axetil 500 mg tablet Take 1 tablet twice a day by oral route. 05/10 completed Not Available Not Available Not Available levofloxa tru 500 mg tablet Take 1 tablet every 24 hours by oral route for 7 days. 07/28 completed Not Available Not Available Not Available levofloxa tru 750 mg tablet TAKE 1 TABLET BY MOUTH EVERY DAY FOR 7 DAYS 07/28 completed Not Available Not Available Not Available methylpre dnisolone 4 mg tablets in a dose pack FOLLOW PACKAGE DIRECTIO NS 06/24 completed Not Available Not Available Not Available Vitamin C 250 mg tablet Take 1 tablet every day by oral route for 60 days. 2023 active Not Available Not Available Not Avai lable albuterol sulfate HFA 90 mcg/actua tion aerosol inhaler INHALE 2 PUFFS BY MOUTH EVERY 4 HOURS NEEDED 02/12 completed Not Available Not Available Not Available ipratropi um bromide 42 mcg (0.06 %) nasal spray USE 2 SPRAYS NASALLY TWO TIMES A DAY NEEDED 2024 active Not Available Not Available Not Avai lable Cipro 250 mg tablet Take 1 tablet twice a day by oral route for 5 days. 06/14 completed Not Available Not Available Not Available ketoconaz ole 2 % topical cream APPLY TOPICALL Y TO THE AFFECTED AREA EVERY DAY 11/11 completed Not Available Not Available Not Available Citrucel (sucrose) oral powder 1 dose daily 12/20 completed Not Available Not Available Not Available atropine 1 % eye drops active Not Available Not Available Not Available fluticaso ne propionat e 50 mcg/actua tion nasal spray,noemi pension [facility] 1 spray every day by intranas al route as needed. active Not Available Not Available No t Available doxycycli ne hyclate 100 mg tablet 01/08 completed Not Available Not Available Not Available finasteri de 5 mg tablet TAKE 1 TABLET DAILY active Not Available Not Available No t Available loratadin e 10 mg tablet Take 1 tablet every day by oral route as needed. 01/08 completed Not Available Not Available Not Available naproxen 500 mg tablet take 1 tablet by mouth twice a day with food 03/11 completed Not Available Not Available Not Available amoxicill in 875 mg-potass ium clavulana te 125 mg tablet TAKE 1 TABLET BY MOUTH EVERY 12 HOURS WITH MEALS FOR 10 DAYS 06/24 completed Not Available Not Available Not Available Vitamin B-12 1,000 mcg tablet Take 1 tablet every day by oral route. active Not Available Not Available No t Available Vitamin D3 25 mcg (1,000 unit) tablet Take 1 tablet every day by oral route. 03/06 completed Not Available Not Available Not Available Systane (propylen e glycol) 0.4 %-0.3 % eye drops 1 drop each eye hourly prn 11/11 completed Not Available Not Available Not Available Nidhi-Linda n DM 10 mg-100 mg/5 mL oral syrup TAKE 10 ML BY MOUTH EVERY 4 HOURS NEEDED 02/08 completed Not Available Not Available Not Available Fish Oil 09/12 completed Not Available Not Available Not Available Centrum Silver 1 po daily 02/11 completed Not Available Not Available Not Available Vitamin D3 2000 IU po daily or as directed 06/24 completed Not Available Not Available Not Available Metamucil 1 dose daily in liquid 11/11 completed Not Available Not Available Not Available Kevin s Butt Paste as needed for pressure sore active Not Available Not Available No t Available multivita min 1 po daily active Not Available Not Available No t Available Calcium 600 + D(3) 2 po daily 01/08 completed Not Available Not Available Not Available levetirac etam 1,000 mg tablet 1 po bid active Not Available Not Available Not Available Zostavax (PF) 19,400 unit/0.65 mL subcutane ous suspensio n active Not Available Not Available Not Available calcium 250 mg (as citrate) tablet Take 2 tablets twice a day by oral route. active Not Available Not Available No t Available ferrous gluconate 324 mg (38 mg iron) tablet take 1 tablet by mouth at bedtime 04/21 completed Not Available Not Available Not Available Lactobaci llus acidoph-L . bifid 1 dose po daily 06/19 completed Not Available Not Available Not Available Havrix (PF) 1,440 BETINA unit/mL intramusc ular syringe 01/06 completed Not Available Not Available Not Available diclofena c 1 % topical gel APPLY 2 GRAMS TO THE AFFECTED AREA(S) of RIGHT Shoulder BY TOPICAL ROUTE 4 TIMES PER DAY 06/19 completed Not Available Not Available Not Available Vaqta (PF) 50 unit/mL intramusc ular suspensio n 07/27 completed Not Available Not Available Not Available Vitamin D3 50 mcg (2,000 unit) tablet Take 1 tablet every day by oral route. 2023 active Not Available Not Available Not Avai lable glucosami ne 500 mg-chondr oit-msm no1 416.6 mg-C 20 mg-peggy-b osw tablet Take 1 tablet twice a day by oral route. 01/08 completed Not Available Not Available Not Available Forteo 20 mcg/dose (560 mcg/2.24 mL) subcutane ous pen injector inject 1 dose sq daily 11/11 completed Not Available Not Available Not Available lacosamid e 200 mg tablet ONE HALF TAB AT HS FOR ONE WEEK, THEN ONE HALF TAB BID FOR ONE WEEK, THEN ONE TABLET BID 01/[address] ISAC CORONA STARTED HIM ON THIS 12/12/21 IN HOPES TO GET HIM OFF OF HIS SOME OTHER SEIZURE Not Available Not Available Not Available GaviLyte- G 236 gram-22.7 4 gram-6.74 gram-5.86 gram oral solution 04/21 completed Not Available Not Available Not Available Prolia 60 mg/mL subcutane ous syringe INJECT 60 MG UNDER THE SKIN EVERY 6 MONTHS 2024 active Not Available Not Available Not Avai lable Probiotic 1 daily active Not Available Not Av ailable Not Available Fluzone (PF) 45 mcg (15 mcg x 3)/0.5 mL intramusc ular syringe active Not Available Not Available Not Available ferrous gluconate 324 mg (37.5 mg iron) tablet Take 1 tablet every day by oral route at bedtime. 07/28 completed Not Available Not Available Not Available Fluzone 4219-6477 (PF) 45 mcg (15 mcg x 3)/0.5 mL intramusc ular syringe active Not Available Not Available Not Available Prepopik 10 mg-3.5 gram-12 gram oral powder packet 04/21 completed Not Available Not Available Not Available Fluvirin 4597-7451 (PF) 45 mcg (15 mcg x3)/0.5 mL intramusc ular syringe inject 0.5 millilit er intramus cularly active Not Available Not Available No t Available Fluzone High-Dose 2013- (PF) 180 mcg/0.5 mL intramusc ular syringe inject 0.5 millilit er intramus cularly active Not Available Not Available No t Available Fluzone High-Dose (PF) 180 mcg/0.5 mL intramusc ular syringe inject 0.5 millilit er intramus cularly 01/31 completed Not Available Not Available Not Available Shingrix (PF) 50 mcg/0.5 mL intramusc ular suspensio n, kit 05/18 completed Not Available Not Available Not Available Forteo 20 mcg/dose (620 mcg/2.48 mL) subcutane ous pen injector 11/11 completed Not Available Not Available Not Available zinc (glycinat e) 20 mg capsule Take 1 capsule every day by oral route for 60 days. 2023 active Not Available Not Available Not Avai lable Vitals Date Recorded Body height Body mass index (BMI) Body weight Heart rate Oxygen saturation Oxygen saturation in Arterial blood by Pulse oximetry Body temperature Systolic blood pressure Diastolic blood pressure Provider Name and Address Organization Details Last Updated DateTime 4 165.1 cm 33.3 kg/m2 56565.4 7 g 73 /min 95 % 95 % 97 [degF] 128 mm[Hg] 76 mm[Hg] [facility] 4 11:34:56 Date Recorded Body height Body mass index (BMI) Body weight Heart rate Oxygen saturation Oxygen saturation in Arterial blood by Pulse oximetry Body temperature Systolic blood pressure Diastolic blood pressure Provider Name and Address Organization Details Last Updated DateTime 5 165.1 cm 33.9 kg/m2 86174.8 4 g 73 /min 97 % 97 % 97.2 [degF] 123 mm[Hg] 74 mm[Hg] [facility] 5 15:16:05 Date Recorded Body height Heart rate Oxygen saturation Oxygen saturation in Arterial blood by Pulse oximetry Body temperature Systolic blood pressure Diastolic blood pressure Provider Name and Address Organization Details Last Updated DateTime 4 165.1 cm 79 /min 96 % 96 % 97.9 [degF] 119 mm[Hg] 71 mm[Hg] [facility] 4 14:40:47 Date Recorded Body height Body mass index (BMI) Body weight Heart rate Oxygen saturation Oxygen saturation in Arterial blood by Pulse oximetry Body temperature Systolic blood pressure Diastolic blood pressure Provider Name and Address Organization Details Last Updated DateTime 5 165.1 cm 34.6 kg/m2 21985.2 1 g 80 /min 94 % 94 % 97.5 [degF] 110 mm[Hg] 65 mm[Hg] [facility] 5 14:40:27 Date Recorded Body mass index (BMI) Body weight Provider Name and Address Organization Details Last Updated DateTime 02/13/2024 36.6 kg/m2 54564.32 g Mini Freire MD [address] [place] [address], [facility] [address], [address], [facility] 02/13/2024 14:36:04 Date Recorded Body height Heart rate Oxygen saturation Oxygen saturation in Arterial blood by Pulse oximetry Body temperature Systolic blood pressure Diastolic blood pressure Provider Name and Address Organization Details Last Updated DateTime 4 165.1 cm 76 /min 96 % 96 % 97.2 [degF] 127 mm[Hg] 79 mm[Hg] [facility] 4 13:47:31 Social History Question Answer Notes LastModified by Organization Details LastModified Time Tobacco Smoking Status Former [facility]oker Not [facility] 02/26/2020 03:11:18 Do You Have An Advance Directive? Yes [id number] Information not available 02/26/2020 Auto Related Injury? No Information not available 06/15/2011 Is Blood Transfusion Acceptable In An Emergency? Yes [id number] Information not available 02/26/2020 What Is Your Level Of Caffeine Consumption? Moderate [id number] Information not available 02/26/2020 How Much Tobacco Do You Chew? None [id number] Information not available 02/26/2020 Diabetes No Information not available 06/15/2011 What Type Of Diet Are You Following? 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 No Information not available 06/15/2011 When Did You Quit Smoking? 16+yearssin trudy davis Information not available 06/13/2020 High Blood Pressure No Information not available 06/15/2011 High Cholesterol Yes Information not available 06/15/2011 Live Alone Or With Others? With Others Information not available 06/15/2011 Marital Status Informatio n not available 06/15/2011 What Was The Date Of Your Most Recent Tobacco Screening? 02/13/2024 Information not available 02/13/2024 How Many Children Do You Have? 3 [id number] Information not available 02/26/2020 What Is Your Relationship Status? Information not available 02/13/2024 Are You Passively Exposed To Smoke? No Information not available 06/15/2011 How Much Tobacco Do You Smoke? No Smoked About 10 Years And Quit In [email or web address] Information not available 02/08/2023 General Stress Level Low Information not available 06/15/2011 How Many Years Have You Smoked Tobacco? 10 [id number] Information not available 02/26/2020 Sex: Unknown Functional Status Question Answer Note LastModified by Organizat ion Details LastModified Time What is your level of alcohol consumption? None [id number] Information not available 02/26/2020 Are you currently employed? Yes [id number] Information not available 02/26/2020 Are you able to care for yourself? Yes [id number] Information not available 02/26/2020 What is your occupation? Other [employer] Information not available 10/04/2024 What is your exercise level? Moderate senior exercise classes two days week [id number] Information not available 02/26/2020 Mental Status None recorded. Family History Relationship Description Onset Age of this Age Resolved Age Notes LastModified by Organization Details LastModified Time Father Diabetes mellitus colon cancer (previ ously record ed as Diabet es) Not available 09/01/2015 10:13:47 Medical History Condition Response Coronary Artery Disease N Gout N Kidney Stones N Blood Diseases N Hyperthyroidism N Hypothyroidism N Depression N COPD N Developmental or Behavioral Disorders N Eczema, Hives or other skin conditions N Anxiety Disorder N Muscle, Joint, or Bone Problems Y Vision or Eye Problems N Arthritis N Serious Illness or Injuries N Congenital Anomalies N Cancer N Stroke N Bladder or Kidney Problems N Hospital Admission other than N High Cholesterol Y Liver Disease N Fibromyalgia N Kidney Disease N Heart Problems N Ear or Hearing Problems N ADD or ADHD N Thyroid Problems N Skin Problems N Anemia N Constipation N Diabetes N Bedwetting N Seizures/Epilepsy Y Tuberculosis N Diverticulitis N Asthma N Allergies N GERD/Reflux N Heart Disease N Pulmonary Embolism N Hypertension N Osteoporosis N Chicken Pox N Immunizations Vaccine Type Date Status Note Provider Nam e and Address Organization Details Recorded Time Influenza, high-dose, trivalent, PF 7 completed Not Available [facility] 05/19/2019 02:12:13 Influenza, split virus, trivalent, preservative 1 completed Not Available [facility] 12/21/2019 17:52:26 zoster live 0 completed Not Available [facility] 12/21/2019 17:52:26 Influenza, split virus, trivalent, preservative 2 completed Not Available [facility] 12/21/2019 17:52:26 Influenza, split virus, trivalent, preservative 3 completed Not Available [facility] 12/21/2019 17:52:26 Influenza, high-dose, trivalent, PF 8 completed Not Available [facility] 05/19/2019 02:12:13 Influenza, high-dose, trivalent, PF 9 completed Not Available [facility] 05/19/2019 02:12:11 Influenza, high-dose, quadrivalent, PF 1 completed Mini Freire MD [address] [facility], [address], [place], [address], [facility] 01/04/2021 15:13:33 Influenza, high-dose, quadrivalent, PF 1 completed [facility] 01/08/2021 08:56:50 Pneumococcal conjugate PCV 13 5 completed Not Available [facility] 12/21/2019 17:52:26 Influenza, high-dose, quadrivalent, PF 2 completed Mini Freire MD [address] [facility] [address], [place], [address], [facility] 01/21/2022 13:18:40 Tdap 2 completed Not Available [facility] 05/19/2019 02:12:10 Influenza, high-dose, quadrivalent, PF 3 completed Not Available [facility] 01/27/2023 10:48:05 pneumococcal polysaccharide PPV23 9 completed Not Available [facility] 12/21/2019 17:52:26 Influenza, high-dose, trivalent, PF 6 completed Not Available [facility] 12/21/2019 17:52:26 pneumococcal polysaccharide PPV23 6 completed Not Available [facility] 12/21/2019 17:52:26 Influenza, high-dose, trivalent, PF 4 completed Not Available [facility] 02/06/2024 10:41:32 COVID-19, mRNA, LNP-S, PF, laverne-sucrose, 30 mcg/0.3 mL 4 completed Mini Freire MD [address] [facility] [address], [place], [address], [facility] 02/14/2024 06:48:50 zoster, unspecified formulation 8 completed Not Available [facility] 12/21/2019 17:52:26 Hep A, adult 8 completed Not Available [facility] 12/21/2019 17:52:26 zoster, unspecified formulation 9 completed Not Available [facility] 12/21/2019 17:52:26 Hep A, adult 9 completed Not Available [facility] 12/21/2019 17:52:26 Influenza, high-dose, quadrivalent, PF 1 completed Mini Freire MD [address] [facility], [facility] [address], [place], [address], [place] [facility] 01/04/2021 15:11:30 COVID-19, mRNA, LNP-S, PF, 30 mcg/0.3 mL dose 1 completed Mini Freire MD [address] [place] [address], [place], [address] [place] [address], [place] [facility] 01/18/2022 13:52:37 COVID-19, mRNA, LNP-S, PF, 30 mcg/0.3 mL dose 2 completed Mini Freire MD [address] [place] [address], [place], [address] [place] [address], [place] [facility] 01/18/2022 13:52:49 COVID-19, mRNA, LNP-S, PF, 30 mcg/0.3 mL dose 1 completed Mini Freire MD [address] [address], [place], [address] [place] [address], [place] [facility] 01/18/2022 13:53:07 COVID-19, mRNA, LNP-S, PF, 30 mcg/0.3 mL dose 1 completed Mini Freire MD [address] [address], [place], [address] [place] [address], [place] [facility] 01/18/2022 13:53:27 COVID-19, mRNA, LNP-S, PF, 30 mcg/0.3 mL dose 2 completed Mini Freire MD [address] [address], [place], [address] [place] [address], [place] - [facility] 02/23/2022 15:40:55 Tdap 3 completed Mini Freire MD [address] [address], [place], [address] [place] [address], [place] [facility] 02/28/2023 12:13:45 Respiratory syncytial virus (RSV) vaccine, unspecified 3 completed Mini Freire MD [address], [address], [facility] 02/28/2023 12:14:55 COVID-19, mRNA, LNP-S, bivalent, PF, 30 mcg/0.3 mL dose 3 completed Mini Freire MD [address], [address], [facility] 06/24/2023 12:36:21 Past Encounters Encounter ID Performer Location Encounter Start Date Encounter Closed Date Diagnosis/Indication Diagnosis SNOMED-CT Code Diagnosis ICD10 Code Diagnosis Note [id number] Mini Freire MD [address] [id number] 06/15/2011 11:19:57 06/15/2011 15:44:47 [id number] Mini Freire MD [address] [address] 12/11/2013 08:25:42 12/11/2013 11:26:04 Adult health examination 249411531 [id number] Mini Freire MD [address] [address] 12/27/2014 09:31:05 12/27/2014 17:01:05 Adult health examination 315923699 Epilepsy 50047239 Hyperlipidemia 97459645 Hand eczema 155292737 Multiple a ctinic keratoses 934572625 [id number] Mini Freire MD [address] [address] 09/01/2015 09:44:29 09/01/2015 13:40:36 Acute sinusitis 73465794 J01.90 Fatigue 63720824 R53.83 Abdominal pain 67440743 R10.9 [id number] Mini Freire MD [address] [address] 01/15/2016 09:27:03 01/21/2016 11:38:56 Adult health examination 776723896 Z00.01 Knee pain 53054111 M25.5 69 Seizure disorder 1098994 02 G40.909 Gastroesop hageal reflux disease 202840831 K21.9 Generalize d osteoarthritis 087904360 M15.9 Hyperlipidemia 09812204 E78.5 Neoplasm of skin 0208767 04 D49.2 Body mass index 30+ - obesity 710721500 Z68.30 Depression screening 171 253299 Z13.89 [id number] Mini Freire MD [facility] [address] [address] 08/12/2016 08:55:53 08/17/2016 09:43:03 History of bowel obstruction 8349945203 49036 Z87.19 Hyperlipidemia 51401434 E78.5 Chronic constipation 236 588440 K59.09 Seizure disorder 1346176 02 G40.909 [id number] Mini Freire MD [address] [address] 01/25/2017 09:24:25 01/27/2017 12:13:10 Adult health examination 939025068 Z00.01 Lower resp iratory tract infection 95217019 J22 Anemia 040862990 D64.9 Screening for malignant neoplasm of colon 480600360 Z12.11 Depression screening 171 718582 Z13.89 At low risk for fall 439 187627 Z91.81 Body mass index 25-29 - overweight 620273480 Z68.29 [id number] Mini Freire MD [address] [address] 01/28/2017 10:54:21 02/01/2017 10:01:29 Asthmatic bronchitis 706787186 J45.909 Active or passive immunization 580296684 Z23 Iron defic iency anemia 46252043 D50.9 [id number] Mini Freire MD [facility] [address] [address] 04/21/2017 10:58:07 04/21/2017 13:38:13 Acute sinusitis 94643661 J01.90 [id number] Mini Freire MD [facility] [address] [address] 05/03/2017 11:06:18 05/03/2017 15:03:43 Asthmatic bronchitis 012169816 J45.909 Lower resp iratory tract infection 07778035 J22 [id number] Mini Freire MD [facility] [address] [address] 01/26/2018 13:22:18 01/29/2018 20:47:43 Adult health examination 678013603 Z00.01 Active or passive immunization 714993156 Z23 Seizure disorder 2466324 02 G40.909 he takes 2 phenobarb in am and 2 in PM 3 nights and 1 in PM 4 nights per week; we are decreasing dilantin to 2 in am only Depression screening 171 773537 Z13.89 Body mass index 30+ - obesity 927498371 Z68.31 Hyperlipidemia 82116646 E78.5 Gastro-eso phageal reflux disease with esophagitis 662408185 K21.0 [id number] Mini Freire MD [address] [address] 03/31/2018 10:29:57 04/04/2018 08:55:43 Acute sinusitis 82569759 J01.90 [id number] Mini Freire MD [address] [address] 08/18/2018 10:12:04 08/20/2018 21:17:22 Acute sinusitis 83340779 J01.90 Cough 87475279 R05 [id number] Mini Freire MD [facility] [address] [address] 08/29/2018 10:04:31 09/01/2018 08:14:40 Epilepsy 37762912 G40.909 Hyperlipidemia 96633639 E78.5 Gastroesop hageal reflux disease 761670141 K21.9 Body mass index 30+ - obesity 713530936 Z68.31 [id number] Mini Freire MD [facility] [address] [address] 12/22/2018 13:26:35 12/25/2018 10:20:58 Osteoporosis 11418681 M81.0 Fracture of femur 620531 00 M84.750D Seizure disorder 0101229 02 G40.909 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 Gastroesop hageal reflux disease 627186640 K21.9 Body mass index 30+ - obesity 459952336 Z68.30 [id number] Mini Freire MD [facility] [address] [place] [address] 02/01/2019 10:01:48 02/05/2019 08:32:57 Adult health examination 383428075 Z00.01 Active or passive immunization 346598138 Z23 Seizure disorder 3841867 02 G40.909 Depression screening 171 997847 Z13.89 Body mass index 30+ - obesity 659158997 Z68.30 Hyperlipidemia 82536669 E78.5 Gastro-eso phageal reflux disease with esophagitis 900315820 K21.0 Osteoporosis 41034272 M8 1.0 [id number] Mini Freire MD [facility] [address] [address] 04/06/2019 14:12:37 04/06/2019 16:03:30 Lower respiratory tract infection 42435234 J22 [id number] Mini Freire MD [facility] [address] [address] 01/03/2020 13:02:07 01/28/2020 07:48:51 Fracture of humerus 26601521 S42.301D Closed fra cture of right acetabulum 0725984080 2560194 S32.401D Epilepsy 62239209 G40.90 9 Osteoporosis 78418132 M8 1.0 Gastroesop hageal reflux disease 271512959 K21.9 Hyperlipidemia 05357248 E78.5 Benign pro static hyperplasia 710074701 N40.1 Anemia 846581506 D64.9 Constipation 66975981 K5 9.00 [id number] Mini Freire MD [facility] [address] [address] 02/13/2020 17:00:23 2020 08:05:38 Fracture of humerus 53359660 S42.301D Closed fra cture of right acetabulum 6189048887 0481842 S32.401D Epilepsy 60079724 G40.90 9 Osteoporosis 56942700 M8 1.0 Gastroesop hageal reflux disease 048007808 K21.9 Hyperlipidemia 68725301 E78.5 Benign pro static hyperplasia 501855360 N40.1 Constipation 32283691 K5 9.00 [id number] Mini Freire MD [facility] [address] [place] [address] 7 03/06/2020 16:59:23 03/07/2020 08:39:56 Fracture of humerus 34614153 S42.301D Closed fra cture of right acetabulum 6085043469 0754855 S32.401D Epilepsy 00811461 G40.90 9 Osteoporosis 50728093 M8 1.0 Gastroesop hageal reflux disease 057195009 K21.9 Hyperlipidemia 05619979 E78.5 Benign pro static hyperplasia 274674815 N40.1 Constipation 72728285 K5 9.00 Urinary tr act infectious disease 71174678 N39.0 [id number] Mini Freire MD [address] [id number] 06/12/2020 00:17:29 06/15/2020 17:17:02 Fracture of humerus 21659592 S42.301D Closed fra cture of right acetabulum 1730546000 6371674 S32.401D Epilepsy 13608911 G40.90 9 Osteoporosis 47613831 M8 1.0 Gastroesop hageal reflux disease 035215309 K21.9 Hyperlipidemia 54987748 E78.5 Benign pro static hyperplasia 629714415 N40.1 Constipation 01189270 K5 9.00 History of reverse prosthetic total arthroplasty of right shoulder 4073134867 0282531 Z96.611 Transition from acute care to self-care 4221445045 57403 Z76.89 [id number] Mini Freire MD [address] [address] 01/01/2021 14:17:18 01/04/2021 13:53:09 Administration of influenza vaccine 39534473 Z23 History of reverse prosthetic total arthroplasty of right shoulder 6055798897 3238659 Z96.611 Closed fra cture of right acetabulum 9130023302 6908114 S32.401D Epilepsy 76884070 G40.90 9 Osteoporosis 57375962 M8 1.0 Gastroesop hageal reflux disease 435669858 K21.9 Hyperlipidemia 06683847 E78.5 Benign pro static hyperplasia 587732979 N40.1 Adult [facility] th examination 000839326 Z00.01 Body mass index 30+ - obesity 053063207 Z68.33 History of fracture of shoulder 3152849747 04558 Z87.81 History of osteoporotic fracture 4075883239 86674 Z87.310 Disorder of bone 7488474 3 M89.9 [id number] Mini Freire MD [facility] [address] [place] [address] 11/09/2021 16:34:46 11/13/2021 08:00:57 History of reverse prosthetic total arthroplasty of right shoulder 4548702084 1304323 Z96.611 Closed fra cture of right acetabulum 1811462783 5774532 S32.401D Epilepsy 19187413 G40.90 9 Osteoporosis 59299070 M8 1.0 Gastroesop hageal reflux disease 854773825 K21.9 Hyperlipidemia 00252315 E78.5 Benign pro static hyperplasia 776270591 N40.1 History of fracture of shoulder 1514531572 83626 Z87.81 History of osteoporotic fracture 3583848673 18936 Z87.310 Disorder of bone 5329481 3 M89.9 Muscle weakness 85770485 M62.81 [id number] Mini Freire MD [address] [address] 01/18/2022 13:24:04 01/22/2022 08:23:00 Administration of influenza vaccine 22469172 Z23 Adult [facility] examination 659276031 Z00.01 History of reverse prosthetic total arthroplasty of right shoulder 4921833535 7806186 Z96.611 Closed fra cture of right acetabulum 3344859517 0258000 S32.401D Epilepsy 94423638 G40.90 9 Osteoporosis 26076879 M8 1.0 Gastroesop hageal reflux disease 160273708 K21.9 Hyperlipidemia 58002860 E78.5 Benign pro static hyperplasia 218273304 N40.1 Body mass index 30+ - obesity 894660265 Z68.37 History of fracture of shoulder 2565822791 08888 Z87.81 History of osteoporotic fracture 6818603078 76415 Z87.310 Disorder of bone 1983623 3 M89.9 Drug-induc ed hyponatremia 611672390 T50.905A [id number] Mini Freire MD [facility] [address] [place] [address] 7 02/23/2022 14:33:47 02/25/2022 08:40:04 Seasonal allergic rhinitis 656027811 J30.2 Acute lowe r respiratory tract infection 069432187 J22 he has some guaifenesi n 1200 bid to use [id number] Mini Freire MD [facility] [address] [place] [address] 7 03/30/2022 15:25:25 04/02/2022 09:07:31 Acute lower respiratory tract infection J22 he has some guaifenesi n 1200 bid to use Hyponatremia 48302208 E8 7.1 Anemia 020797337 D64.9 Venous sta sis edema of bilateral lower limbs 7328124855 5561798 I87.2 Wheezing 62645943 R06.2 Cough 21648076 R05.9 [id number] Mini Freire MD [facility] [address] [address] 02/08/2023 13:34:10 02/10/2023 08:55:16 Adult health examination 105321120 Z00.01 Closed fra cture of right acetabulum 9136539594 0421711 S32.401D Epilepsy 39070988 G40.90 9 Osteoporosis 59133529 M8 1.0 Gastroesop hageal reflux disease 316820805 K21.9 Hyperlipidemia 41326605 E78.5 Benign pro static hyperplasia 606393259 N40.1 Body mass index 30+ - obesity 431481517 Z68.37 History of fracture of shoulder 9391039761 22092 Z87.81 History of osteoporotic fracture 9141414008 84776 Z87.310 Disorder of bone 9573726 3 M89.9 History of reverse prosthetic total arthroplasty of right shoulder 2513143681 2383166 Z96.611 Drug-induc ed hyponatremia 448994233 T50.905A Impacted c erumen of bilateral ears 1505217770 929200 H61.23 [id number] Mini Freire MD [facility] [address] [place] [address] 7 02/28/2023 11:43:25 03/01/2023 08:33:48 Acute lower respiratory tract infection 2 he has some guaifenesi n 1200 bid to use [id number] Mini Freire MD [facility] [place] [address] 7 03/10/2023 14:07:09 03/14/2023 08:42:14 Allergic reaction to drug 560865753 T50.905A Candidiasis of skin 4988 3006 B37.2 Seizure disorder 1133071 02 G40.909 [id number] Mini Freire MD [place] [address] 7 06/24/2023 11:09:02 06/27/2023 08:28:33 Recurrent falls 997630361 R29.6 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 9304755075 5106 L89.154 Abnormal g ait due to muscle weakness 561848217 M62.81 Seizure disorder 8393940 02 G40.909 Osteoporosis 47393475 M8 1.0 Body mass index 30+ - obesity 537273973 Z68.33 [id number] Mini Freire MD [place] [id number] 7 07/29/2023 14:17:59 08/01/2023 08:35:42 Acute lower respiratory tract infection 602595003 J22 he has some guaifenesi n 1200 bid to use Hypothyroidism 16207441 E03.9 Pressure i njury of sacral region of back 849656625 L89.159 Hypoalbuminemia 72874925 4 E88.09 [id number] Mini Freire MD [facility] [address] [address] 02/13/2024 13:46:23 02/14/2024 09:53:10 Active or passive immunization 685506915 Z23 Hypothyroidism 10010075 E03.9 Adult heal th examination 344318963 Z00.01 Contusion of right foot 8942691956 2997517 S90.31XA Pressure i njury of sacral region of back 813253899 L89.159 Medication review done by doctor 401188597 Z76.89 Closed fra cture of right acetabulum 9149393863 4129475 S32.401D Epilepsy 53101905 G40.90 9 Osteoporosis [id number] M8 1.0 Gastroesop hageal reflux disease 143901267 K21.9 Hyperlipidemia 57071914 E78.5 Benign pro static hyperplasia 257869291 N40.1 Body mass index 30+ - obesity 040176064 Z68.37 History of fracture of shoulder 5723934928 62042 Z87.81 History of osteoporotic fracture 0222097725 70151 Z87.310 Disorder of bone 4410244 3 M89.9 History of reverse prosthetic total arthroplasty of right shoulder 5979030101 4378481 Z96.611 Drug-induc ed hyponatremia 456203156 T50.905A Bilateral hearing loss 70307401 H91.93 Medication serum levels outside of reference range 3566132114 13640 R78.9 [id number] Mini Freire MD [facility] [address] [place] [address] [phone] 07/09/2024 15:15:13 07/10/2024 11:36:53 Post-discharge follow-up 421802062 Z09 Seizure disorder 7371582 02 G40.909 Syndrome o f inappropriate vasopressin secretion 80295369 E22.2 Edema of l ower extremity 653714892 R60.0 Atrial par oxysmal tachycardia 405247230 I47.19 Low blood pressure 28218 003 I95.9 Body mass index 30+ - obesity 552593363 Z68.33 [id number] Mini Freire MD [facility] [address] [place] [address] [phone] 08/30/2024 14:38:18 09/03/2024 08:58:14 Seizure disorder 052995217 G40.909 Essential hypertension 30882482 I10 Acquired hypothyroidism 647112042 E03.9 Belinda an gular cheilitis 073082321 B37.83 Candidal intertrigo 2661 72535 B37.2 Angular cheilitis 387251 005 K13.0 Pressure i njury of sacral region of back stage I 8701429385 5101 L89.151 Allergic rhinitis 219100 04 J30.9 Health Concerns Section Related Observation LastModified by Organization Detai ls LastModified Time None Recorded Concern Status LastModified by Organization Details LastModified Time None Recorded Advance Directives Directive Y: Payers Insurance Date Sequence Insurance Name Policy Number Policy Padilla Covered Member ID Padilla Member ID Guarantor Name 12/19/2018 1 [employer] (MEDICARE REPLACEMENT PFFS) Christian Fuentes [id number] Christian Manriquez Alfredo 12/19/2018 1 [employer] (MEDICARE REPLACEMENT/AD VANTAGE - PFFS) Christian Colecaterina [id number] Christian Jensenelyse 10/03/2024 1 [employer] - MEDICARE ADVANTAGE (MEDICARE REPLACEMENT PPO) [id number] Christian Colecaterina [id number] Christian Colecaterina Notes Date Note Type Note Provider Name and Address Organization Details Recorded Time 06/24/2023 text/html Needs his Prolia shot and the last one was 7 months agoHe is still coughing a little.Went to ER for shortness of breath and was diagnosed with a viral respiratory infection. He was also having chest pain and ruled out cardiac but was diagnosed with a possible bruised sternum. He has a bed sore that is high on the right hip and is using bandages regularly.He is very weak and it is becoming more difficult for his to help him He is always in a wheelchair and has really not been walking since he fell on Jun 10 He is just transferring a little since then but always needs help and family is worried about his increased weakness.He is belching and burping and coughing more with eating. Has known Barretts. Cannot recall any choking episodes though. He does not cough with water but when he eats anything he seems to cough. His son advises he really is not coughing at the table but more after he is reclining in the chair. Mini Freire MD [address] [facility], [address], [place], [address], [facility] 06/25/2023 09:48:28 07/29/2023 text/html the wound care sheridan thao is packing the sacral decubitus and is using a collagen packing. It is not getting smaller per the nurse.He had an episode of decreased responsiveness and congestion and nurse gave him glucose and he got better. but they noted wheezing.OT has started him on a breathing device to increase inspiration called The Breather Mini Freire MD [address] [address], [place], [address], [facility] 07/30/2023 13:30:30 02/13/2024 text/html has had one fall going down a ramp with the walker and fell over backwards after making a sharp turn His daughter was holding him with a gait belt so he just had a few little bruises and is typically very cautious.There is also an early pressure sore on the gluteus crack that his is treating with vaseline. We discussed using Kevin's butt paste. Mini Freire MD [address] [address], [place], [address], [facility] 02/14/2024 07:34:47 07/09/2024 text/html [facility] since [facility] 01. He got covid while in there and 2 falls in the nursing room. He went to [facility] ER on 05/26 for chest pain and shortness of breath. His medications were adjusted and he just got home and is running out of the new meds; He was diagnosed with SIADH and was diuresed 15 pounds of fluid in hospital. They continued metoprolol and also midodrin tid prn. They have not given him any metoprolol or midodrin today. Still has the gluteal infection/decubitus and is using calmoseptine ointment without menthol and that is OK. They had been using some A&D Ointment. He is taking the metoprolol ER 25 mg for rate control. They also have him on the lasix 20 mg MWF He tends to have the hyponatremia.He was being given 1000 ng keppra bid andThey have restricted his fluids to 2 liters max and that has helped the low sodium issue. They usually put a splash of gatorade in his water and that helps it taste better. Mini Freire MD [address] [facility], [address], [place], [address], [facility] 07/10/2024 07:04:48 08/30/2024 text/html home physical therapy is now coming once weekly and has been there for about 3 weeks and will be there until September.His weight at home was 208 today at home. He is staying stable now on the lasix 20 mg daily.BP has been doing well also They are monitoring at home too.[facility] asked them about the protonix and he cannot stop that with the Barretts.He still has a little rawness in the buttocks and groin area lately that is persisting but not worsening. Using the Calmoseptine that helps some His put a wedge pillow behind him as well. He has a hospital bed with what sounds like a regular mattress. He would benefit from a gel overlay mattress.His family has found new shoes that are working quite well for him and have 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 Mini Freire MD [address] [facility], [address], [place], [address], [facility] 08/31/2024 13:50:19
--- OUTSIDE RECORDS SUMMARY | 2024-10-24 07:15 | XMS_ITS | Encounter Summary ---
Author Organization [employer] Address [address] [place] [address] Care Team Providers Care Sql Server Dba Name Role Phone Unavailable Primary Care Provider Unavailabl e Encounter Details Date Type Department Care Team (Late st Contact Info) Description 11/26/2018 Transcribed Document [facility] Family Medicine [address] [place] [address] ProviderDarwin MD [address] [place] [address] Social History Tobacco Use Types [...] Conversion Note - Darwin ProviderMD - 11/26/2018 12:43 PM CDT Pain Assessment Entered On: 11/26/2018 23:54 EDT Performed On: 11/26/2018 20:16 EDT by Cris Goodman RN Intervention Information: acetaminophen-HYDROcodone Performed by MARTI LIM RN on 11/26/2018 19:16:00 EDT acetaminophen-HYDROcodone,1Tab Oral,Pain (Moderate 4-6) Pain Assessment Pain Assessment : Follow-up assessment Pain Scale Goal : 4 Pain Intervention, Drug : Medicated Pain Improved by Intervention : Yes Cris Goodman RN - 11/26/2018 23:54 EDT Electronically signed by Vicente Rueda Conversion Electrician Crane Maintenance Cerner at 08/17/2022 9:56 AM CDT documented in this encounter Plan of Treatment Not on file documented as of this encounter Visit Diagnoses Not on filedocumented in this encounter
--- OUTSIDE RECORDS SUMMARY | 2024-10-24 07:15 | XMS_ITS | Encounter Summary ---
Author Organization [employer] Address [address] [place] [address] Care Team Providers Care Hadoop Consultant Name Role Phone Unavailable Primary Care Provider Unavailabl e Encounter Details Date Type Department Care Team (Late st Contact Info) Description 11/26/2018 Transcribed Document [facility] [place] Family Medicine [facility] [place] [address] ProviderDarwin MD [address] [place] [address] Social History Tobacco Use Types [...] Conversion Note - Darwin ProviderMD - 11/26/2018 4:37 PM CDT DATE OF PROCEDURE: 11/26/2018 OPERATIVE REPORT PREOPERATIVE DIAGNOSIS(ES): Left low femoral neck fracture. POSTOPERATIVE DIAGNOSIS(ES): Left low femoral neck fracture. PROCEDURE: Closed reduction and placement of long Gamma nail to left femur for fixation of left femoral neck fracture. SURGEON: Mouna Juárez MD INDUSTRIAL TECHNOLOGIST: Maxwell Joyner PA-C necessary for leg positioning pre and intraoperative, placement of implant, closure of wound. IMPLANT: Obinna Titanium Gamma nail 400 mm x12 mm with a screw partially threaded of 100 mm into the femoral head and neck. NDICATIONS: This is a 78-year-old gentleman, who has had progressive increasing pain about his left hip with final intolerance of weightbearing over the last week. X-rays confirmed a nondisplaced fracture of the femoral neck. He presents now for operative fixation and stabilization. PROCEDURE IN DETAIL: After obtaining LMA anesthesia, time-out procedure was done identifying the patient and the left hip as the site of surgery. Consent form and x-rays confirmed this. At this time, he was placed on the Maize table with the right leg flexed and abducted out of the field. His left leg was placed under long axial traction. A Germain catheter had been placed preoperatively. We then confirmed position and reduction of the fracture with C-arm. At this time, we prepped and draped the left lower extremity from iliac crest and mid calf in the usual sterile fashion. A second time-out procedure was done again confirming the left hip as site of surgery. Preoperative antibiotics had been infused. We then identified the fracture and with C-arm guidance, passed a pin to the medial edge of the tip of the left greater trochanter. We were able to push this pin into the intramedullary canal. We had confirmed position of this in orthogonal views. At this time, we were able to place the tissue protector at the site and passed a ball-tip guidewire through the tip of the trochanter down intramedullary distally. We then measured the length of the wire at this juncture and selected a 400 mm length. We then did sequential reaming over the ball-tipped guidewire starting at 10 mm and ending at 12.5 mm. The proximal 4 cm were drilled to 15.5 mm. We obtained the 400 x 11 nail and impacted it in. We placed the screw hole guide in the lower central femoral neck. Again, we confirmed position in orthogonal views. At this time, we drilled, measured and placed a 100 mm screw into the femoral head and neck. We confirmed position of this and then locked it in place. We were able to compress the fracture even more with good compression of the fracture and maintenance of anatomic position. At this time, we removed all fixation devices after locking the screw in place and closed the percutaneous incision for this screw in a layered fashion with interrupted #2 Vicryl suture followed by #3-0 Monocryl suture and the proximal 3 inches wound with interrupted #0 Vicryl suture for fascia, interrupted #2-0 Vicryl suture for subcutaneous tissues, and #3-0 Monocryl suture for skin closure. A Prineo followed by Mepilex dressing was applied. The patient was then removed from the Maize table and placed supine in his hospital bed and taken in extubated stable condition to the recovery room. Mouna Juárez M.D. Dict: 11/26/2018 16:37:32 Trans: 11/26/2018 19:23:54 CC1: Mouna Juárez M.D. documented in this encounter Plan of Treatment Not on file documented as of this encounter Visit Diagnoses Not on filedocumented in this encounter
--- OUTSIDE RECORDS SUMMARY | 2024-10-24 07:15 | XMS_ITS | Encounter Summary ---
Author Organization [employer] Address [address] [place] [address] Care Team Providers Care Tool And Fixture Repairer Name Role Phone Unavailable Primary Care Provider Unavailabl e Encounter Details Date Type Department Care Team (Late st Contact Info) Description 11/29/2018 Transcribed Document [facility] [place] Family Medicine [address] [place] [address] ProviderDarwin MD [address] [place] [address] Social History Tobacco Use Types [...] Conversion Note - Historical ProviderMD - 11/29/2018 2:00 AM CDT Insulation Supervisor Details Entered On: 11/29/2018 5:41 EDT Performed On: 11/29/2018 2:00 EDT by Yoselin Vargas Rn Order Details Transport Mode Order Detail : Wheelchair Isolation Precautions Order Detail : Standard Precautions Order Detail : N/A IV Order Detail : 1 Oxygen Order Detail : 0 Nurse Collect Order Detail : 0 Lift/Transfer : Moderate assist Central Line Order Detail : No Room Service : Appropriate Arterial Line : No Yoselin Vargas Rn - 11/29/2018 5:41 EDT documented in this encounter Plan of Treatment Not on file documented as of this encounter Visit Diagnoses Not on filedocumented in this encounter
--- OUTSIDE RECORDS SUMMARY | 2024-10-24 07:15 | XMS_ITS | Encounter Summary ---
Author Organization [employer] Address [address] [place] [address] Care Team Providers Care Chief Arson Division Name Role Phone Unavailable Primary Care Provider Unavailabl e Encounter Details Date Type Department Care Team (Late st Contact Info) Description 11/26/2018 Transcribed Document [facility] Family Medicine [facility] [place] [address] ProviderDarwin MD [address] [place] [address] Social History Tobacco Use Types [...] Conversion Note - Historical ProviderMD - 11/26/2018 3:55 PM CDT Admission History, Adult Entered On: 11/26/2018 17:55 EDT Performed On: 11/26/2018 15:55 EDT by MARTI LIM RN Advance Directive Patient has Advance Directive *Q : Yes, Advance Directive not with the patient Advance Directive Type : Living will Copy Advance Directive Verified/on Chart : No MARTI LIM RN - 11/26/2018 17:52 EDT Anesthesia/Transfusion History Family History of Anesthesia Reaction : No prior transfusion(s) Transfusion History : Prior anesthesia without reaction Family History of Anesthesia Reaction : None MARTI LIM RN - 11/26/2018 17:52 EDT Functional Assessment Living Situation : Home MAST Hx Falls Immediate/Within 3 Months : No Current Home Treatments : None MARTI LIM RN - 11/26/2018 17:55 EDT General Info Mode of Arrival on Unit : Wheelchair Legal Guardian : Spouse Want Family/Rep/Phys Notified of Admit : No Emergency Contact #1 : Thao Strauss Emergency Contact #1 Emergency Contact #1 Relationship : daughter Emergency Contact #2 : Lavern Fuentes Emergency Contact #2 Emergency Contact #2 Relationship : Chief Complaint : C/o Increase in l hip pain x 1 week, unable to bear weight, negative Xrays 5 weeks ago Information Obtained From : Patient Primary Language : Macedonian Communication Barrier : None MARTI LIM RN - 11/26/2018 17:55 EDT Fall Risk Scales ABCs Fall Injury Risk Identification : Bones, Surgery ABC Fall Injury Risk : Moderate to high injury risk Injury Moderate to High Risk Interventions : Bed alarm on, Chair alarm on, High Risk for Fall Injury sign in place per policy, Supervise toileting as indicated, Transport methods appropriate to patient, Wrist band (fall risk) on per policy MAST Hx Falls Immediate/Within 3 Months : No Mast Secondary Diagnosis : Yes KEZIA Use of Ambulatory Aid : Bed rest/Nurse assist MAST IV Therapy or IV Access : Yes Kezia Gait/Transferring : Weak Kezia Mental Status : Oriented to own ability Mast Fall Risk Score : 45 MAST Fall Scale Risk Level : 25-45 Medium Risk [place] Fall Interventions : Adequate lighting, Assistive devices within reach, Bed in low position, Call device within reach, Fall prevention handout/education per facility policy, Frequent orientation to call device, Frequent orientation to surroundings, Hourly comfort/safety rounds, Non-slip footwear, Personal items within reach, Reinforced to call for assistance before getting out of bed, Room free of clutter/spills, Upper side-rails up, Wheels locked, Wires/Cords secured Fall Moderate to High Risk Interventions : Bed alarm on, Chair alarm on, High Risk for Fall sign in place per policy, Supervise toileting as indicated, Transport methods appropriate to patient, Wrist band (fall risk) on MARTI LIM RN - 11/26/2018 17:52 EDT Fall Risk Education Grid Alarms : Verbalizes understanding Assistive Equipment Use : Verbalizes understanding Bed Height/Stabilization : Verbalizes understanding Call light use : Verbalizes understanding Door Open : Verbalizes understanding Environmental Management : Verbalizes understanding Eyeglasses Use : Verbalizes understanding Fall Community Resources : Verbalizes understanding Fall Contract/Letter : Verbalizes understanding Fall Prevention in the Home : Verbalizes understanding Fall Prevention Protocol : Verbalizes understanding Hearing Aid Use : Verbalizes understanding Home Risk Assessment : Verbalizes understanding Need Constant Observation : Verbalizes understanding Night Light Use : Verbalizes understanding Nonskid Footwear Use : Verbalizes understanding Notification of Staff When Leaving : Verbalizes understanding Orthostatic Hypotension Precautions : Verbalizes understanding Personal Article Availability : Verbalizes understanding Prevention Responsibility Family : Verbalizes understanding Prevention Responsibility Patient : Verbalizes understanding Risk Alert Methods : Verbalizes understanding Risk Factors : Verbalizes understanding Safety Aids : Verbalizes understanding Siderails use/risks : Verbalizes understanding Special Assistive Devices : Verbalizes understanding Staff Responsiveness : Verbalizes understanding Symptom Identification & Action Plan *Q : Verbalizes understanding Symptom Reporting : Verbalizes understanding Toileting Schedule : Verbalizes understanding Transfer/Mobility Techniques : Verbalizes understanding Urinal/Bedpan Availability : Verbalizes understanding Wait for Assistance : Verbalizes understanding Wheelchair Safety : Verbalizes understanding MARTI LIM RN - 11/26/2018 17:52 EDT Barriers to Learning : None evident Individuals Taught : Patient Readiness to Learn : Cooperative Highest Level of Education : High school Baseline Knowledge of Topic : Good Teaching Method : Demonstration Learning Style Preferences Family : Verbal explanation Learning Style Preferences Patient : Printed materials, Verbal explanation Teaching Evaluation : Verbalizes understanding Fall Risk Scale Calc Temp : 1 MARTI LIM RN - 11/26/2018 17:52 EDT Health Histories Smoking Status : Never (less than 100 in lifetime; none in last 30 days) Smokeless Tobacco Status : Never MARTI LIM RN - 11/26/2018 18:00 EDT Social History (As Of: 11/26/2018 18:04:13 EDT) Tobacco: Never (less than 100 in lifetime) Smoking Status. (Last Updated: 02/07/2018 20:15:12 EDT by HAL BANKS RN) Alcohol: Alcohol Use History No. (Last Updated: 02/07/2018 20:15:16 EDT by HAL BANKS RN) Substance Abuse: Drug Use Hx: No. Use in Last 12 Months: No. (Last Updated: 02/07/2018 20:15:21 EDT by HAL BANKS, JAIRON) Height and Weight, Clinical Dosing Height Source : Stated Height Entry Format : Stark Height, Feet : 5 ft(Converted to: 152 cm, 60 Inch) Height, Inches : 7 Inch(Converted to: 0 ft 7 Inch, 17.78 cm) Clinical Height : 170.18 cm Weight Source : Stated [place] Body Weight : 65 kg MARTI LIM RN - 11/26/2018 18:00 EDT Estimated Weight Type of Weight Measurement Est : Stark Weight, est lb : 197 lb(Converted to: 89 kg) Estimated Clinical Dosing Weight : 89.55 kg MARTI LIM RN - 11/26/2018 18:00 EDT Infectious Disease History Infectious Disease History : Chicken pox/Shingles, Measles Fever/Chills Last 48 Hours : No Travel To Regions with Travel Advisories : No Travel Outside [place] Within Last 30 Days : No Contact With Traveler to Advisory Region : No Tuberculosis Symptoms : None MARTI LIM RN - 11/26/2018 18:00 EDT Influenza Vaccine Asmt, Adult Previous Vaccines from Immunization Schedule : No qualifying data available. Influenza Immunization, Current Season : Outside of influenza season MARTI LIM RN - 11/26/2018 18:00 EDT Pneumococcal Vaccine Previous Vaccines from Immunization Schedule : No qualifying data available. Pneumonia Immunization Received : Yes Pneumonia Immunization Date : 02/16/2018 EDT MARTI LIM RN - 11/26/2018 18:00 EDT Nutrition History Feeding Ability : Independent Adaptive Feeding Equipment : Regular Eating Poorly Due to Decreased Appetite : No Unplanned Weight Loss in Past 3-6 Months : No Malnutrition Screening Tool Total(mal) : 0 Malnutrition Screening Tool Risk Level : Patient not at risk MARTI LIM RN - 11/26/2018 18:00 EDT Psychosocial History Tried to Harm Yourself in the Past? : No Thoughts of Harming/Killing Yourself : No MARTI LIM RN - 11/26/2018 18:04 EDT Does Someone Depend on You for Care? : No Currently in Unsafe Situation : No MARTI LIM RN - 11/26/2018 18:00 EDT Sleep Apnea Risk Assmt Hx of Obstructive Sleep Apnea Diagnosis : No Snore Loudly : No Tired, Fatigued, or Sleepy During Day : No Observed Stopping Breathing During Sleep : No Have/Are Being Treated for Hypertension : Yes BMI Greater Than 35 kg/m2 : No Age over 50 Years Old : Yes Neck Circumference Greater Than 40 cm : No Gender Male : Yes STOP-BANG Sleep Apnea Risk Level Score : 3 MARTI LIM RN - 11/26/2018 18:00 EDT Valuables and Belongings Valuables and Belongings : Clothing, Jewelry Clothing : Common streetwear Clothing Disposition : With family Jewelry : Ring Jewelry Disposition : With patient MARTI LIM RN - 11/26/2018 18:00 EDT documented in this encounter Plan of Treatment Not on file documented as of this encounter Visit Diagnoses Not on filedocumented in this encounter
--- OUTSIDE RECORDS SUMMARY | 2024-10-24 07:15 | XMS_ITS | Encounter Summary ---
Author Organization [employer] Address [address] [place] [id number] Care Team Providers Care Supervisor Landscape Name Role Phone Unavailable Primary Care Provider Unavailabl e Encounter Details Date Type Department Care Team (Late st Contact Info) Description 11/26/2018 Transcribed Document [facility] [address] [place] [address] ProviderDarwin MD [address] [place] [address] Social History Tobacco Use Types [...] Conversion Note - Darwin ProviderMD - 11/26/2018 10:38 AM CDT ED Triage Entered On: 11/26/2018 10:45 EDT Performed On: 11/26/2018 10:42 EDT by ROSIBEL SOLOMON ED Triage Across the Room Triage Date/Time : 11/26/2018 10:42 EDT Chief Complaint : C/o Increase in l hip pain x 1 week, unable to bear weight, negative Xrays 5 weeks ago ROSIBEL SOLOMON - 11/26/2018 10:42 EDT DCP GENERIC CODE Tracking Acuity : 3 - Urgent Tracking Group : [facility] ED [facility] ROSIBEL SOLOMON - 11/26/2018 10:42 EDT Mode of Arrival : Wheelchair Transported to ED by : Private vehicle To Room Via : Wheelchair Accompanied By : Spouse ED Vital Signs : Document Height & Weight : Document ED Allergies : Document ED Reason for Visit : Document ROSIBEL SOLOMON - 11/26/2018 10:42 EDT Infectious Disease History Infectious Disease History : Chicken pox/Shingles, Measles Fever/Chills Last 48 Hours : No Travel To [place] with Travel Advisories : No Travel Outside [place] Within Last 30 Days : No Contact With Traveler to Advisory Region : No Tuberculosis Symptoms : None ROSIBEL SOLOMON - 11/26/2018 10:42 EDT Vital Signs ED Temperature Source : Tympanic Temperature Mode : Fahrenheit Peripheral Pulse Rate : 71 bpm Respiratory Rate : 18 Breaths/Min Systolic Blood Pressure : 153 mmHg (HI) Diastolic Blood Pressure : 78 mmHg Oxygen Saturation : 98 % ROSIBEL SOLOMON - 11/26/2018 10:42 EDT Allergy (As Of: 11/26/2018 10:45:10 EDT) Allergies (Active) No Known Medication Allergies Estimated Onset Date: Unspecified ; Created By: HAL BANKS RN; Reaction Status: Active ; Category: Drug ; Substance: No Known Medication Allergies ; Type: Allergy ; Updated By: HAL BANKS RN; Reviewed Date: 02/07/2018 20:39 EDT Diagnosis Control ED (As Of: 11/26/2018 10:45:10 EDT) Problems(Active) Arthritis (SNOMED CT :4736951 ) Name of Problem: Arthritis ; Recorder: Joan Miller Nurse - other; Confirmation: Confirmed ; Classification: Medical ; Code: [id number] ; Contributor System: WalkHub ; Last Updated: 06/08/2017 13:34 EST ; Life Cycle Date: 06/08/2017 ; Life Cycle Status: Active ; Vocabulary: SNOMED CT Hyperlipidemia with low HDL (SNOMED CT :44637301 ) Name of Problem: Hyperlipidemia with low HDL ; Recorder: Joan Miller Nurse - other; Confirmation: Confirmed ; Classification: Medical ; Code: [id number] ; Contributor System: PowerChart ; Last Updated: 06/08/2017 13:36 EST ; Life Cycle Date: 06/08/2017 ; Life Cycle Status: Active ; Vocabulary: SNOMED CT Seizure disorder (SNOMED CT :942184039 ) Name of Problem: Seizure disorder ; Recorder: Joan Miller Nurse - other; Confirmation: Confirmed ; Classification: Medical ; Code: [id number] ; Contributor System: MSTChart ; Last Updated: 06/08/2017 13:35 EST ; Life Cycle Date: 06/08/2017 ; Life Cycle Status: Active ; Vocabulary: SNOMED CT Diagnoses(Active) Hip pain-swelling Date: 11/26/2018 ; Diagnosis Type: Reason For Visit ; Confirmation: Complaint of ; Clinical Dx: Hip pain-swelling ; Classification: Medical ; Clinical Service: Emergency medicine ; Code: PNED ; Probability: 0 ; Diagnosis Code: [id number] ED Height and Weight Height Source : Stated Height Entry Format : [place] Height, Feet : 5 ft(Converted to: 152 cm, 60 Inch) Height, Inches : 7 Inch(Converted to: 0 ft 7 Inch, 17.78 cm) Clinical Height : 170.18 cm Weight Source, ED : Critical estimated dosing weight Weight Entry Format : [place] Weight, Pounds : 197 lb Clinical Dosing Weight : 89.55 kg Body Surface Area (BSA) : 2.01 m2 Body Mass Index : 30.9 kg/m2 (HI) [place] Body Weight (IBW) : 65.16 kg ROSIBEL SOLOMON 11/26/2018 10:42 EDT documented in this encounter Plan of Treatment Not on file documented as of this encounter Visit Diagnoses Not on filedocumented in this encounter
--- OUTSIDE RECORDS SUMMARY | 2024-10-24 07:15 | XMS_ITS | Encounter Summary ---
Author Organization [employer] Address [address] [place] [id number] Care Team Providers Care Application Processor Name Role Phone Unavailable Primary Care Provider Unavailabl e Encounter Details Date Type Department Care Team (Late st Contact Info) Description 11/29/2018 Transcribed Document [facility] [place] [facility] [address] ProviderDarwin MD [address] [place] [address] Social History Tobacco Use Types [...] Conversion Note - Darwin ProviderMD - 11/29/2018 3:29 PM CDT [place] [id number] CLAUDINE GARAY :1940 Visit Time:11/26/2018 Your Visit Summary Your Care Team Admitting Physician - MELANIE SANDOVAL MD-[place] MCNEIL MD-[facility] PHY, UNKNOWN Attending Physician - MELANIE SANDOVAL MD-[facility] MCNEIL MD-[facility] Primary Care Physician - BLAIRE ALBERT (REF)MD-[facility] Referring Physician - YANIV, SELF REFERRED Your Diagnosis Fracture of femoral neck, left, closed Fracture of neck, unspecified, initial encounter, Fracture of neck, unspecified, initial encounter Hyperlipidemia with low HDL Hypertension Hyponatremia Left Hip pain-swelling Seizure disorder What to do next Instructions From Your Care Team Discharge Follow Up Instructions: f/u is as scheduled, Order Comment: Follow-up with PCP as scheduled or PRN Activity: as per dr gaston recommendations, Discharge Activity: Other (use Special Instructions) Diet: Discharge Diet: Resume usual diet as tolerated Follow-Up Appointments Follow Up with BRIDGETTE GASTON MD-ORT When 12/13/2018 10:30 AM EDT Comments Appointment has been made Where: [address] [place] [address] [address] [place] [address]- Medications What How Much When Instructions Next Dose acetaminophen-hydrocodone ([place] 7.5 mg-325 mg oral tablet) 1 Tablet(s) Oral Every 4 Hours as needed for as needed for pain Duration: 10 Day(s) 1-2 by mouth every 4 hours when necessary cephalexin (Keflex 500 mg oral capsule) 1 Capsule(s) Oral Every 8 Hours Duration: 7 Day(s) PHENobarbital (PHENobarbital 64.8 mg oral tablet) 2 Tablet(s) Oral Two Times A Day aspirin (aspirin 325 mg oral tablet) 1 Tablet(s) Oral Every Day atorvastatin (Lipitor 40 mg oral tablet) 1 Tablet(s) Oral Every Day pantoprazole (pantoprazole 40 mg oral delayed release tablet) 1 Tablet(s) Oral Twice a Day Before Meals Before breakfast and dinner calcium-vitamin D (calcium (as carbonate)-vitamin D 600 mg-200 intl units oral tablet) 1 Tablet(s) Oral Every Evening chondroitin-glucosamine (Chondroitin-Glucosamine 600 mg-750 mg oral tablet) 1 Tablet(s) Oral Two Times A Day cyanocobalamin (cyanocobalamin 1000 mcg sublingual tablet) 1 Tablet(s) SubLINgual Every Evening cyclobenzaprine (cyclobenzaprine 10 mg oral tablet) 0.5-1 tab Oral Three Times A Day as needed for as needed for spasm finasteride (finasteride 5 mg oral tablet) 1 Tablet(s) Oral Every Day multivitamin 1 Tablet(s) Oral Every Day phenytoin (phenytoin 100 mg oral capsule, extended release) 2 Capsule(s) Oral Every Day Take your medications faithfully. Do NOT skip medication. Do NOT stop taking medications without the direction of a physician. Carry a list of your medications with you at all times, and take this medication list with you to your first follow up visit. Report any side effects. Avoid herbal remedies unless discussed with your physician. As part of your treatment plan, your physician may have prescribed a limited course of a controlled substance. This medication may be given to help people with moderate or severe pain or for other medical conditions, but there are risks involved with treatment. Common side effects may include nausea, constipation, drowsiness, sweating, itching, dry mouth, and rash. More serious side effects may include cognitive and motor impairment, like problems with thinking, concentrating, alertness, and movement (e.g. slowed reflexes), and driving and operating heavy machinery can be dangerous. It is important for you to talk to your physician if you have these side effects or questions. These controlled substances can produce physical dependence and be habit-forming if taken for an extended period of time, which means that the body has gotten used to them and may experience withdrawal symptoms if they are abruptly stopped. Withdrawal symptoms can include runny nose, sweating, goose bumps, diarrhea, abdominal cramping, rapid heartbeat, difficulty sleeping, and nervousness. Please dispose of unused and medications per your retail pharmacy guidance. Allergies No Known Medication Allergies Immunizations This Visit No Immunizations Found Education Materials What to expect after the Procedure: After the procedure, it is common to have: ??? Pain and swelling. ??? A small amount of blood or clear fluid coming from your incision for up to 7 days ??? It is normal to have a moderate amount of bleeding from the site of the drain that was pulled on the morning after surgery. You can hold pressure on the area for 3-5 minutes and cover with a bandage as needed. Diet: ??? Resume usual diet ??? No alcoholic beverages while taking pain medication ??? Drink 8-10 glasses of water a day to prevent constipation from pain medication ??? Increase fiber to help prevent constipation. Straining can cause increased pressure and pain in your incision area ??? Increase protein to promote healing Driving: ??? Do not drive until your health care provider approves. Ask your health care provider when it is safe to drive if you have an immobilizer on your knee. ??? Do not drive or operate heavy machinery while taking prescription pain medicine. ??? Do not drive for 24 hours if you received a sedative. Activity: ??? Do not lift anything that is heavier than 10 lb (4.5 kg) until your health care provider approves. ??? No strenuous activity ??? Avoid high-impact activities, including running, jumping rope, and jumping jacks. ??? Avoid sitting for a long time without moving. Get up and move around at least every few hours. ??? Keep legs elevated while seated and place surgery leg on 2-3 pillows, this will decrease swelling ??? Continue using walker until cleared by physical therapy Bathing: ??? Do not take baths, swim, or use a hot tub for one month after surgery. ??? May shower on the third day after surgery by covering incision with Glad Brand Press and Seal saran wrap. After showering, dry off completely BEFORE removing saran wrap. ??? Use Press and Seal saran wrap to shower for one month after surgery ??? You must be seated to shower until you are no longer using the walker Other: ??? Leave the bandages on until follow up appointment. If they become soiled, replace them with the extra bandages sent with patient. ??? Use ice therapy for 20-30 minutes at a time and leave off for 20-30 minutes at a time. Always keep a towel or cloth between the ice pack and your skin ??? Continue to use Incentive Spirometer 10 times an hour while awake for one month to help prevent pneumonia Contact a health care provider if: ??? You have more redness, swelling, or pain around your incision. ??? You have more fluid or blood coming from your incision. ??? Your incision or drain site feels warm to the touch. ??? You have pus or a bad smell coming from your incision. ??? You have a fever. ??? Your incision breaks open after your health care provider removes your sutures, skin glue, or adhesive tape. ??? Your prosthesis feels loose. ??? You have knee pain that does not go away. DVT: Blood Clot Blood clots are a common risk after an orthopedic surgery Symptoms: ??? Swelling of your leg or arm, especially if one side is much worse. ??? Warmth and redness of your leg or arm, especially if one side is much worse. ??? Pain in your arm or leg. If the clot is in your leg, symptoms may be more noticeable or worse when you stand or walk. ??? A feeling of pins and needles, if the clot is in the arm. The symptoms of a DVT that has traveled to the lungs (pulmonary embolism, PE) usually start suddenly and include: ??? Shortness of breath while active or at rest. ??? Coughing or coughing up blood or blood-tinged mucus. ??? Chest pain that is often worse with deep breaths. ??? Rapid or irregular heartbeat. ??? Feeling light-headed or dizzy. ??? Fainting. ??? Feeling anxious. ??? Sweating. There may also be pain and swelling in a leg if that is where the blood clot started. How is this prevented? Exercise regularly. For at least 30 minutes every day, engage in: -Activity that involves moving your arms and legs. -Activity that encourages good blood flow through your body by increasing your heart rate. ??? Exercise your arms and legs every hour during long-distance travel (over 4 hours). ??? Drink plenty of water and avoid drinking alcohol while traveling. ??? Avoid sitting or lying in bed for long periods of time without moving your legs. ??? Maintain a weight that is appropriate for your height. Ask your health care provider what weight is healthy for you. ??? If you are a woman who is over 35 years of age, avoid unnecessary use of medicines that contain estrogen. These include control pills. ??? Do not smoke, especially if you take estrogen medicines. If you need help quitting, ask your health care provider. ??? Wear compression stockings (if told by your health care provider) to help prevent blood clots from forming. High Fiber/High Protein Diet High fiber foods: To prevent constipation Grains Whole-grain breads. Multigrain cereal. Oats and oatmeal. Brown rice. Barley. Bulgur wheat. Millet. Bran muffins. Popcorn. [place] wafer crackers. Vegetables Sweet potatoes. Spinach. Kale. Artichokes. Cabbage. Broccoli. Green peas. Carrots. Squash. Fruits Berries. Pears. Apples. Oranges. Avocados. Prunes and raisins. Dried figs. Meats and Other Protein Sources [place], kidney, miranda, and soy beans. Split peas. Lentils. Nuts and seeds. Dairy Fiber-fortified yogurt. Beverages Fiber-fortified soy milk. Fiber-fortified orange juice. Other Fiber bars. High-protein foods: To promote healing High-protein foods contain 4 grams (4 g) or more of protein per serving. They include: ??? Beef, ground sirloin (cooked) ??? 3 oz have 24 g of protein. ??? Cheese (hard) ??? 1 oz has 7 g of protein. ??? Chicken breast, boneless and skinless (cooked) ??? 3 oz have 13.4 g of protein. ??? Cottage cheese ??? 1/2 cup has 13.4 g of protein. ??? Egg ??? 1 egg has 6 g of protein. ??? Fish, filet (cooked) ??? 1 oz has 6???7 g of protein. ??? Garbanzo beans (canned or cooked) ??? 1/2 cup has 6???7 g of protein. ??? Kidney beans (canned or cooked) ??? 1/2 cup has 6???7 g of protein. ??? Blue (cooked) ??? 3 oz has 24 g of protein. ??? Milk ??? 1 cup (8 oz) has 8 g of protein. ??? Nuts (peanuts, pistachios, almonds) ??? 1 oz has 6 g of protein. ??? Peanut butter ??? 1 oz has 7???8 g of protein. ??? Pork tenderloin (cooked) ??? 3 oz has 18.4 g of protein. ??? Pumpkin seeds ??? 1 oz has 8.5 g of protein. ??? Soybeans (roasted) ??? 1 oz has 8 g of protein. ??? Soybeans (cooked) ??? 1/2 cup has 11 g of protein. ??? Soy milk ??? 1 cup (8 oz) has 5???10 g of protein. ??? Soy or vegetable maisha ??? 1 maisha has 11 g of protein. ??? [place] seeds ??? 1 oz has 5.5 g of protein. ??? Tofu (firm) ??? 1/2 cup has 20 g of protein. ??? Tuna (canned in water) ??? 3 oz has 20 g of protein. ??? Yogurt ??? 6 oz has 8 g of protein. Fall Prevention ??? Use night lights. ??? Install grab bars by the toilet and in the tub and shower. Do not use towel bars as grab bars. ??? Use non-skid mats or decals on the floor of the tub or shower. ??? If you need to sit down while you are in the shower, use a plastic, non-slip stool. ??? Keep the floor dry. Immediately clean up any water that spills on the floor. ??? Remove soap buildup in the tub or shower on a regular basis. ??? Remove throw rugs and other tripping hazards from the floor. ??? Place frequently used items in [id number] places ??? Keep electrical cables out of the way. ??? Do not leave any items on the stairs. ??? Make sure that there are handrails on both sides of the stairs. Fix handrails that are broken or loose. Make sure that handrails are as long as the stairways. ??? Check any carpeting to make sure that it is firmly attached to the stairs. Fix any carpet that is loose or worn. ??? Avoid having throw rugs at the top or bottom of stairways, or secure the rugs with carpet tape to prevent them from moving. ??? Wear closed-toe shoes that fit well and support your feet. Wear shoes that have rubber soles or low heels. ??? Use mobility aids as needed, such as canes, walkers, scooters, and crutches. ??? Turn on lights if it is dark. Replace any light bulbs that burn out. ??? Set up furniture so that there are clear paths. Keep the furniture in the same spot. ??? Be aware of any and all pets. ??? Review your medicines with your healthcare provider. Some medicines can cause dizziness or changes in blood pressure, which increase your risk of falling. Hand Washing You should wash your hands whenever you think they are dirty. You should also wash your hands: ??? After: ??? Working or playing outside. ??? Touching an animal or its toys or leash. ??? Handling livestock. ??? Using the bathroom. ??? Using household oceanic sciences professor or toxic chemicals. ??? Touching or taking out the garbage. ??? Touching anything dirty around your home. ??? Handling soiled clothes or rags. ??? Taking care of a sick child. This includes touching used tissues, toys, and clothes. ??? Sneezing, coughing, or blowing your nose. ??? Using public transportation. ??? Shaking hands. ??? Using a phone, including your mobile phone. ??? Touching money. ??? Before and after: ??? Preparing food. ??? Feeding a baby or young child. ??? Eating. ??? Visiting or taking care of someone who is sick. ??? Changing a diaper. ??? Changing a bandage (dressing) or taking care of an injury or wound. ??? Giving or taking medicine. If soap and clean water are not available, use an alcohol-based wipe, spray, or hand gel. Use a hand-sanitizing agent that contains at least 60% alcohol. If you are preparing food, hand sanitizers are not recommended as a substitute for hand washing. Walker Use To Walk With a Front-Wheeled Walker: 1. Slide your front-wheeled walker one step-length in front of you. Your toes should be farther forward than the back legs of your walker. 2. Hold on to the walker for support, and step your weaker (surgery) leg into the middle of the walker. 3. Step your stronger leg forward to land next to your weaker leg. 4. Repeat the process for each step. ??? Always keep both feet within the width of the walker's legs or wheels. ??? When using your walker, you should not feel like you need to lean forward or to the side to keep your hands on the handgrips. ??? Make sure you are following any weight-bearing instructions that your health care provider has given you. ??? Be careful not to let the walker get too far ahead of you as you walk. ??? If your walker does not glide well over carpet, consider cutting an X into two tennis balls and placing the balls over the back legs of your walker. How to use a walker on a curb or step To Use a Walker to Step Up: 1. Put all four legs of the walker on the curb or step. 2. Get your feet as close to the curb or step as you can. 3. Test the steadiness of the walker by pressing down on the handgrips. 4. If the walker is steady, press down on it with your hands as you step up with your stronger leg. 5. Step up with your weaker leg. To Use a Walker to Step Down: 1. Put all four legs of the walker on the surface that is lower than the curb or step. 2. Get your feet as close to the curb or step as you can. 3. Test the steadiness of the walker by pressing down on the handgrips. 4. If the walker is steady, press down on it with your hands as you step down with your weaker leg. 5. Step down with your stronger leg. acetaminophen and oxycodone (a SEET a MIN oh fen and OX i KOE done) Endocet 10/325, Endocet 2.5/325, Endocet 5/325, Endocet 7.5/325, Nalocet, Percocet 10/325, Percocet 2.5/325, Percocet 5/325, Percocet 7.5/325, Primalev, Primlev, Roxicet, Xartemis XR What is the most important information I should know about acetaminophen and oxycodone? MISUSE OF OPIOID MEDICINE CAN CAUSE ADDICTION, OVERDOSE, OR . Keep the medication in a place where others cannot get to it. An overdose of acetaminophen can damage your liver or cause . Call your doctor at once if you have pain in your upper stomach, loss of appetite, dark urine, or jaundice (yellowing of your skin or eyes). Taking opioid medicine during may cause life-threatening withdrawal symptoms in the . Fatal side effects can occur if you use opioid medicine with alcohol, or with other drugs that cause drowsiness or slow your breathing. Stop taking this medicine and call your doctor right away if you have skin redness or a rash that spreads and causes blistering and peeling. What is acetaminophen and oxycodone? Oxycodone is an opioid pain medication, sometimes called a narcotic. Acetaminophen is a less potent pain reliever that increases the effects of oxycodone. Acetaminophen and oxycodone is a combination medicine used to relieve moderate to severe pain. Acetaminophen and oxycodone may also be used for purposes not listed in this medication guide. What should I discuss with my healthcare provider before taking acetaminophen and oxycodone? You should not use this medicine if you are allergic to acetaminophen or oxycodone, or if you have: ?? severe asthma or breathing problems; or ?? a blockage in your stomach or intestines. Tell your doctor if you have ever had: ?? liver disease; ?? a drug or alcohol addiction; ?? kidney disease; ?? a head injury or seizures; ?? urination problems; or ?? problems with your thyroid, pancreas, or gallbladder. If you use opioid medicine while you are , your baby could become dependent on the drug. This can cause life-threatening withdrawal symptoms in the baby after it is born. Babies born dependent on opioids may need medical treatment for several weeks. Do not breast-feed. This medicine can pass into breast milk and cause drowsiness, breathing problems, or in a nursing baby. How should I take acetaminophen and oxycodone? Follow all directions on your prescription label. Never take this medicine in larger amounts, or for longer than prescribed. An overdose can damage your liver or cause . Tell your doctor if the medicine seems to stop working as well in relieving your pain. Never share this medicine with another person, especially someone with a history of drug abuse or addiction. MISUSE CAN CAUSE ADDICTION, OVERDOSE, OR . Keep the medicine in a place where others cannot get to it. Selling or giving away acetaminophen and oxycodone is against the law. Measure liquid medicine carefully. Use the dosing syringe provided, or use a medicine dose-measuring device (not a kitchen spoon). If you need surgery or medical tests, tell the doctor ahead of time that you are using this medicine. You should not stop using this medicine suddenly. Follow your doctor's instructions about tapering your dose. Store at room temperature away from moisture and heat. Keep track of your medicine. You should be aware if anyone is using it improperly or without a prescription. Do not keep leftover opioid medication. Just one dose can cause in someone using this medicine accidentally or improperly. Ask your pharmacist where to locate a drug take-back disposal program. If there is no take-back program, flush the unused medicine down the toilet. What happens if I miss a dose? Since this medicine is used for pain, you are not likely to miss a dose. Skip any missed dose if it is almost time for your next dose. Do not use two doses at one time. What happens if I overdose? Seek emergency medical attention or call the Poison Help line at . An overdose of acetaminophen and oxycodone can be fatal. The first signs of an acetaminophen overdose include loss of appetite, nausea, vomiting, stomach pain, sweating, and confusion or weakness. Later symptoms may include pain in your upper stomach, dark urine, and yellowing of your skin or the whites of your eyes. Overdose can also cause severe muscle weakness, pinpoint pupils, very slow breathing, extreme drowsiness, or coma. What should I avoid while taking acetaminophen and oxycodone? Avoid driving or operating machinery until you know how this medicine will affect you. Dizziness or drowsiness can cause falls, accidents, or severe injuries. Do not drink alcohol. Dangerous side effects or could occur. Ask a doctor or pharmacist before using any other medicine that may contain acetaminophen (sometimes abbreviated as APAP). Taking certain medications together can lead to a fatal overdose. What are the possible side effects of acetaminophen and oxycodone? Get emergency medical help if you have signs of an allergic reaction: hives; difficulty breathing; swelling of your face, lips, tongue, or throat. Opioid medicine can slow or stop your breathing, and may occur. A person caring for you should seek emergency medical attention if you have slow breathing with long pauses, blue colored lips, or if you are hard to wake up. In rare cases, acetaminophen may cause a severe skin reaction that can be fatal. This could occur even if you have taken acetaminophen in the past and had no reaction. Stop taking this medicine and call your doctor right away if you have skin redness or a rash that spreads and causes blistering and peeling. Call your doctor at once if you have: ?? noisy breathing, sighing, shallow breathing; ?? a light-headed feeling, like you might pass out; ?? weakness, tiredness, fever, unusual bruising or bleeding; ?? confusion, unusual thoughts or behavior; ?? problems with urination; ?? liver problems--nausea, upper stomach pain, tiredness, loss of appetite, dark urine, jessie-colored stools, jaundice (yellowing of the skin or eyes); or ?? low cortisol levels-- nausea, vomiting, loss of appetite, dizziness, worsening tiredness or weakness. Seek medical attention right away if you have symptoms of serotonin syndrome, such as: agitation, hallucinations, fever, sweating, shivering, fast heart rate, muscle stiffness, twitching, loss of coordination, nausea, vomiting, or diarrhea. Serious side effects may be more likely in older adults and those who are overweight, malnourished, or debilitated. Long-term use of opioid medication may affect fertility (ability to have children) in men or women. It is not known whether opioid effects on fertility are permanent. Common side effects include: ?? dizziness, drowsiness, feeling tired; ?? feelings of extreme happiness or sadness; ?? nausea, vomiting, stomach pain; ?? constipation; or ?? headache. This is not a complete list of side effects and others may occur. Call your doctor for medical advice about side effects. You may report side effects to FDA at 5-139-FJD-3103. What other drugs will affect acetaminophen and oxycodone? You may have breathing problems or withdrawal symptoms if you start or stop taking certain other medicines. Tell your doctor if you also use an antibiotic, antifungal medication, heart or blood pressure medication, seizure medication, or medicine to treat HIV or hepatitis C. Opioid medication can interact with many other drugs and cause dangerous side effects or . Be sure your doctor knows if you also use: ?? cold or allergy medicines, bronchodilator asthma/COPD medication, or a diuretic ('water pill'); ?? medicines for motion sickness, irritable bowel syndrome, or overactive bladder; ?? other narcotic medications--opioid pain medicine or prescription cough medicine; ?? a sedative like Valium--diazepam, alprazolam, lorazepam, Xanax, Klonopin, Versed, and others; ?? drugs that make you sleepy or slow your breathing--a sleeping pill, muscle relaxer, medicine to treat mood disorders or mental illness; ?? drugs that affect serotonin levels in your body--a stimulant, or medicine for depression, Parkinson's disease, migraine headaches, serious infections, or nausea and vomiting. This list is not complete. Other drugs may affect acetaminophen and oxycodone, including prescription and uwtb-ofs-jbusbpt medicines, vitamins, and herbal products. Not all possible interactions are listed here. Where can I get more information? Your doctor or pharmacist can provide more information about acetaminophen and oxycodone. Remember, keep this and all other medicines out of the reach of children, never share your medicines with others, and use this medication only for the indication prescribed. Every effort has been made to ensure that the information provided by [employer]. [employer]') is accurate, up-to-date, and complete, but no guarantee is made to that effect. Drug information contained herein may be time sensitive. [employer] information has been compiled for use by healthcare practitioners and consumers in the [place] and therefore [employer] does not warrant that uses outside of the [place] are appropriate, unless specifically indicated otherwise. [employer] drug information does not endorse drugs, diagnose patients or recommend therapy. [employer] drug information is an informational resource designed to assist licensed healthcare practitioners in caring for their patients and/or to serve consumers viewing this service as a supplement to, and not a substitute for, the expertise, skill, knowledge and judgment of healthcare practitioners. The absence of a warning for a given drug or drug combination in no way should be construed to indicate that the drug or drug combination is safe, effective or appropriate for any given patient. [employer] does not assume any responsibility for any aspect of healthcare administered with the aid of information [employer] provides. The information contained herein is not intended to cover all possible uses, directions, precautions, warnings, drug interactions, allergic reactions, or adverse effects. If you have questions about the drugs you are taking, check with your doctor, nurse or pharmacist. Copyright 2631-9360 [employer]. Version: 18.02. Revision Date: 03/29/2018. cephalexin (sef a TINO in) Daxbia, Keflex What is the most important information I should know about cephalexin? You should not use this medicine if you are allergic to cephalexin or to similar antibiotics, such as Ceftin, Cefzil, Omnicef, and others. Tell your doctor if you are allergic to any drugs, especially penicillins or other antibiotics. What is cephalexin? Cephalexin is a cephalosporin (SEF a low spor in) antibiotic that is used to treat bacterial infections of the lungs, ear, skin, bones, bladder, and kidneys. Cephalexin is used to treat infections in adults and children who are at least 1 year old. Cephalexin may also be used for purposes not listed in this medication guide. What should I discuss with my healthcare provider before taking cephalexin? You should not use this medicine if you are allergic to cephalexin or to other cephalosporin antibiotics, such as: ?? cefaclor (Ceclor), cefadroxil (Duricef), cefazolin (Ancef, Kefzol); ?? cefdinir (Omnicef), cefditoren (Spectracef); ?? cefixime (Suprax); ?? cefotaxime (Claforan), cefotetan (Cefotan); ?? cefpodoxime (Vantin), cefprozil (Cefzil); ?? ceftaroline (Teflaro), ceftazidime (Ceptaz, Fortaz), ceftriaxone (Rocephin); ?? cefuroxime (Ceftin), and others. Tell your doctor if you have ever had: ?? an allergy to any drug (especially penicillin); ?? liver or kidney disease; or ?? intestinal problems, such as colitis. The liquid form of cephalexin may contain sugar. This may affect you if you have diabetes. Tell your doctor if you are or breast-feeding. How should I take cephalexin? Follow all directions on your prescription label and read all medication guides or instruction sheets. Use the medicine exactly as directed. Do not use cephalexin to treat any condition that has not been checked by your doctor. Shake the oral suspension (liquid) before you measure a dose. Use the dosing syringe provided, or use a medicine dose-measuring device (not a kitchen spoon). Use this medicine for the full prescribed length of time, even if your symptoms quickly improve. Skipping doses can increase your risk of infection that is resistant to medication. Cephalexin will not treat a viral infection such as the flu or a common cold. Do not share cephalexin with another person, even if they have the same symptoms you have. This medicine can affect the results of certain medical tests. Tell any doctor who treats you that you are using cephalexin. Store the tablets and capsules at room temperature away from moisture, heat, and light. Store the liquid medicine in the refrigerator. Throw away any unused liquid after 14 days. What happens if I miss a dose? Take the medicine as soon as you can, but skip the missed dose if it is almost time for your next dose. Do not take two doses at one time. What happens if I overdose? Seek emergency medical attention or call the Poison Help line at . Overdose symptoms may include nausea, vomiting, stomach pain, diarrhea, and blood in your urine. What should I avoid while taking cephalexin? Antibiotic medicines can cause diarrhea, which may be a sign of a new infection. If you have diarrhea that is watery or bloody, call your doctor before using anti-diarrhea medicine. What are the possible side effects of cephalexin? Get emergency medical help if you have signs of an allergic reaction (hives, difficult breathing, swelling in your face or throat) or a severe skin reaction (fever, sore throat, burning eyes, skin pain, red or purple skin rash with blistering and peeling). Call your doctor at once if you have: ?? severe stomach pain, diarrhea that is watery or bloody (even if it occurs months after your last dose); ?? unusual tiredness, feeling light-headed or short of breath; ?? easy bruising, unusual bleeding, purple or red spots under your skin; ?? a seizure; ?? pale skin, cold hands and feet; ?? yellowed skin, dark colored urine; ?? fever, weakness; or ?? pain in your side or lower back, painful urination. Common side effects may include: ?? diarrhea; ?? nausea, vomiting; ?? indigestion, stomach pain; or ?? vaginal itching or discharge. This is not a complete list of side effects and others may occur. Call your doctor for medical advice about side effects. You may report side effects to FDA at 1-635-GCV-0499. What other drugs will affect cephalexin? Tell your doctor about all your other medicines, especially: ?? metformin; or ?? probenecid. This list is not complete. Other drugs may affect cephalexin, including prescription and yxwc-zyy-zhvfuea medicines, vitamins, and herbal products. Not all possible drug interactions are listed here. Where can I get more information? Your pharmacist can provide more information about cephalexin. Remember, keep this and all other medicines out of the reach of children, never share your medicines with others, and use this medication only for the indication prescribed. Every effort has been made to ensure that the information provided by [employer]. ('[employer]') is accurate, up-to-date, and complete, but no guarantee is made to that effect. Drug information contained herein may be time sensitive. [employer] information has been compiled for use by healthcare practitioners and consumers in the [place] and therefore [employer] does not warrant that uses outside of the [place] are appropriate, unless specifically indicated otherwise. [employer] drug information does not endorse drugs, diagnose patients or recommend therapy. [employer] drug information is an informational resource designed to assist licensed healthcare practitioners in caring for their patients and/or to serve consumers viewing this service as a supplement to, and not a substitute for, the expertise, skill, knowledge and judgment of healthcare practitioners. The absence of a warning for a given drug or drug combination in no way should be construed to indicate that the drug or drug combination is safe, effective or appropriate for any given patient. [employer] does not assume any responsibility for any aspect of healthcare administered with the aid of information [employer] provides. The information contained herein is not intended to cover all possible uses, directions, precautions, warnings, drug interactions, allergic reactions, or adverse effects. If you have questions about the drugs you are taking, check with your doctor, nurse or pharmacist. Copyright 8900-3516 [employer]. Version: 10.. Revision Date: 04/28/2018. Emergency Awareness and Preventative Care STROKE is an EMERGENCY Every Minute Counts Act FAST and Check for these signs: FACE Does the face look uneven? ARM Does one arm drift down? SPEECH Does their speech sound strange? TIME Call at any sign of stroke Stroke Risk Factors Atrial Fibrillation (irregular heartbeat) Diabetes Family history of stroke Heart Disease Heavy alcohol use High Blood Pressure High Cholesterol Physical inactivity and obesity Smoking Cigarette Smoking The facts are clear, cigarette smoking will shorten your life. Smoking can cause many illnesses along the way. As a healthcare provider, we recommend that you stop smoking. Assistance with quitting is available by contacting 6-594-WITTNOW. This is a free resource providing counseling, support, and referral. Or you may contact your personal physician. National Suicide Prevention Lifeline: The National Suicide Prevention Lifeline is a national network of local crisis centers that provides free and confidential emotional support to people in suicidal crisis or emotional distress 24 hours a day, 7 days a week. Don't Wait! Stop a Heart Attack Before it Starts What is a heart attack? A heart attack is damage or to a part of the heart from severely decreased or lack of blood flow to the heart. Over time, arteries can become narrow from the buildup of fat and cholesterol, which is called plaque. The plaque can rupture causing a blood clot to form. When the blood clot forms, the artery can become severely narrowed or completely blocked, causing a heart attack. Heart attack is the leading cause of in the [place]. 85% of muscle damage occurs within the first 2 hours. Delay in the recognition of heart attack symptoms increases the chances of . Know the early symptoms of a heart attack: Nausea Feeling of fullness in chest Jaw Pain Pain that travels down one or both arms Fatigue/being tired Anxiety Back Pain Chest pressure, squeezing, or discomfort Shortness of breath Sweating, or a cold sweat Feeling of impending doom There are unusual signs of a heart attack, too! Women, the elderly, and diabetics may present with atypical symptoms: Fainting/dizziness Weakness Confusion Risk Factors for a Heart Attack Some heart disease risk factors, such as age and family history, cannot be changed. Others, like smoking and lack of exercise, can be changed. Smoking High Cholesterol High Blood Pressure Family History Obesity Age Gender (Males are at higher risk) Lack of Exercise Diabetes Diet Stress Excessive Alcohol Intake If you or someone you know is experiencing the signs and symptoms of a heart attack, DON???T DELAY. Call immediately and seek help. If someone collapses, perform CPR! Do not attempt to drive if you are having symptoms of heart attack. Hands-Only CPR Why Hands-Only CPR? Hands-Only CPR has been shown to be as effective as conventional CPR for cardiac arrests that occur outside of a hospital. Survival depends on immediately receiving CPR from someone nearby. How do you perform Hands-Only CPR? There are two easy steps: Call 9-1-1 if you see a teen or adult collapse Push hard and fast in the center of the chest at a beat of 100 beats per minute. Save a life! 4 WAYS TO GET AHEAD OF SEPSIS SEPSIS is a MEDICAL EMERGENCY. Time matters! Infections put you and your family at risk for a life-threatening condition called sepsis. Sepsis is the body's extreme response to an infection. It is life-threatening, and without timely treatment, sepsis can rapidly lead to tissue damage, organ failure, and . Sepsis happens when an infection you already have-in your skin, lungs, urinary tract or somewhere else-triggers a chain reaction throughout your body. 1 PREVENT INFECTIONS Take good care of chronic conditions. Talk to your doctor about getting the recommended vaccines. 2 PRACTICE GOOD HYGIENE Wash your hands frequently. Keep cuts or open sores clean and covered until they are healed. 3 KNOW THE SYMPTOMS Confusion or disorientation Shortness of breath High heart rate Fever, shivering, or feeling very cold Extreme pain or discomfort Clammy or sweaty skin 4 ACT FAST Get medical care IMMEDIATELY if you suspect sepsis or if you have an infection that is not getting better or is getting worse. To learn more about sepsis and how to prevent infections, visit www.cdc.gov/sepsis. Test Results Laboratory or Other Results This Visit (last charted value for your 11/26/2018 visit) Hematology 11/27/18 02:52:00 WBC: 13.4 K/uL -- Normal range between ( 3.9 and 10.0 ) RBC: 4.21 Million/uL -- Normal range between ( 4.63 and 6.08 ) Hct: 38.2 % -- Normal range between ( 40.1 and 51.0 ) Hgb: 12.5 Gram/dL -- Normal range between ( 13.7 and 17.5 ) Platelet Count: 243 K/uL -- Normal range between ( 163 and 369 ) MCH: 29.7 pg -- Normal range between ( 25.6 and 32.2 ) MCHC: 32.7 Gram/dL -- Normal range between ( 32.3 and 36.5 ) MCV: 90.7 fL -- Normal range between ( 79.0 and 94.8 ) Slide Review: No Eos %: 0.4 % -- Normal range between ( 1.0 and 7.0 ) [place] #: 1.08 K/uL -- Normal range between ( 0.24 and 0.82 ) Eos #: 0.05 K/uL -- Normal range between ( 0.04 and 0.54 ) [place] %: 8.1 % -- Normal range between ( 4.7 and 12.5 ) Baso %: 0.1 % -- Normal range between ( 0.0 and 1.0 ) Baso #: 0.02 K/uL -- Normal range between ( 0.01 and 0.08 ) RDW: 15.5 % -- Normal range between ( 11.6 and 14.4 ) Neut %: 78.4 % -- Normal range between ( 34.0 and 71.0 ) Neut #: 10.49 K/uL -- Normal range between ( 1.56 and 6.13 ) Lymph %: 12.5 % -- Normal range between ( 19.3 and 53.0 ) Lymph #: 1.68 K/uL -- Normal range between ( 1.18 and 3.74 ) MPV: 9.5 fL -- Normal range between ( 9.4 and 12.4 ) IG#: 0 x10(3)/uL IG%: 0 % -- Normal range between ( 0 and 1 ) Urinalysis 11/26/18 12:10:00 Ur RBC: None Seen Urine Nitrite: Negative Urine Leukocyte Esterase: Negative Ur Epithelial Cells: 0-2 /HPF Urine Appearance: Clear Urine Glucose Dipstick: Negative Urine Blood Dipstick: Negative Urine Urobilinogen Dipstick: 0.2 EU/dL -- Normal range between ( 0.2 and 1.0 ) Urine Protein Dipstick: Negative Ur Bacteria: Trace Urine Color: Yellow Ur WBC: None Seen Urine Ketones Dipstick: Negative Urine pH Dipstick: 7.0 -- Normal range between ( 6.0 and 8.0 ) Urine Bilirubin Dipstick: Negative mg/dL Urine Specific [place]: 1.008 -- Normal range between ( 1.005 and 1.030 ) [facility] 11/29/18 02:51:00 Creatinine Level: 0.99 mg/dL -- Normal range between ( 0.70 and 1.30 ) Sodium Level: 135 mmol/L -- Normal range between ( 136 and 146 ) Potassium Level: 4.9 mmol/L -- Normal range between ( 3.5 and 5.1 ) Chloride Level: 103 mmol/L -- Normal range between ( 102 and 112 ) Carbon Dioxide Level: 27 mmol/L -- Normal range between ( 21 and 32 ) Anion Gap: 10 -- Normal range between ( 9 and 20 ) Bun/Creatinine: 14.1 -- Normal range between ( 8.0 and 20.0 ) Calcium Level: 8.1 mg/dL -- Normal range between ( 8.5 and 10.1 ) eGFR : >60 mL/min/1.73m2 eGFR NonAfrican: >60 mL/min/1.73m2 Glucose Level: 95 mg/dL -- Normal range between ( 74 and 106 ) Blood Urea Nitrogen: 14 mg/dL -- Normal range between ( 7 and 22 ) 11/27/18 02:52:00 Bilirubin Total: 0.3 mg/dL -- Normal range between ( 0.2 and 1.3 ) A/G Ratio: 0.9 -- Normal range between ( 1.1 and 2.5 ) ALT: 34 Units/Liter -- Normal range between ( 12 and 78 ) AST: 20 Units/Liter -- Normal range between ( 5 and 37 ) Globulin: 3.3 Gram/dL -- Normal range between ( 1.5 and 4.5 ) Alk Phos: 120 Units/Liter -- Normal range between ( 27 and 136 ) Protein Total: 6.3 Gram/dL -- Normal range between ( 6.4 and 8.2 ) Albumin Level: 3.0 Gram/dL -- Normal range between ( 3.4 and 5.0 ) Coagulation 11/26/18 12:10:00 INR: 1.0 -- Normal range between ( 0.9 and 1.1 ) PTT: 25.4 Second(s) -- Normal range between ( 24.5 and 30.1 ) PT: 10.2 Second(s) -- Normal range between ( 9.6 and 11.5 ) Vitamin Chemistry 11/26/18 13:00:00 Vitamin D 25 Hydroxy: 34.1 ng/mL -- Normal range between ( 30.0 and 100.0 ) Computed Tomography 11/26/18 11:49:24 CT Hip LT WO: CT Hip LT WO Diagnostic Radiology 11/26/18 15:30:00 CR Fluoro in OR: CR Fluoro in OR Patient Name:CLAUDINE GARAY I have received and understand this information and was given the opportunity to ask questions. Patient/Tax Lawyer Name: Patient/Tax Lawyer Signature: Relationship to Patient: Clinician/Hospital Tax Lawyer Signature: Date: Electronically signed by [facility] Conversion Architect In [employer] at 08/17/2022 10:06 AM CDT documented in this encounter Plan of Treatment Not on file documented as of this encounter Visit Diagnoses Not on filedocumented in this encounter
--- OUTSIDE RECORDS SUMMARY | 2024-10-24 07:15 | XMS_ITS | Encounter Summary ---
Author Organization [employer] Address [address] [place] [id number] Care Team Providers Care Hammerer Helper Name Role Phone Unavailable Primary Care Provider Unavailabl e Encounter Details Date Type Department Care Team (Late st Contact Info) Description 11/26/2018 Transcribed Document [facility] [place] Family Medicine [address] [place] [address] ProviderDarwin MD [address] [place] [address] Social History Tobacco Use Types [...] ProviderMD - 11/26/2018 10:38 AM CDT ED Assessment Entered On: 11/26/2018 10:54 EDT Performed On: 11/26/2018 10:53 EDT by DIONISIO MOODY Rn ED Quick Look Assessment Level of Consciousness : Alert, Awake Affect/Behavior : Appropriate, Calm, Cooperative Orientation : Oriented x 4 Skin Temperature : Warm Skin Description : Dry DIONISIO MOODY Rn - 11/26/2018 10:53 EDT ED General-Functional Assess Information Obtained From : Patient Communication Barrier : None Primary Language : Senegalese Any Spiritual/Cultural Needs or Requests : No Currently in Unsafe Situation : No DIONISIO MOODY Rn - 11/26/2018 10:53 EDT Social Habits Smoking Status : Never (less than 100 in lifetime; none in last 30 days) Smokeless Tobacco Status : Never Desires Tobacco Cessation Calc : 0 DIONISIO MOODY Rn - 11/26/2018 10:53 EDT Social History (As Of: 11/26/2018 10:54:24 EDT) Tobacco: Never (less than 100 in lifetime) Smoking Status. (Last Updated: 02/07/2018 20:15:12 EDT by HAL BANKS, JAIRON) Alcohol: Alcohol Use History No. (Last Updated: 02/07/2018 20:15:16 EDT by HAL BANKS, JAIRON) Substance Abuse: Drug Use Hx: No. Use in Last 12 Months: No. (Last Updated: 02/07/2018 20:15:21 EDT by HAL BANKS, JAIRON) Musculoskeletal Musculoskeletal Assessment Comment : pT C/O LEFT HIP PAIN X 5 WEEKS, WORSENING PAIN, UNABLE TO BEAR WEIGHT, PAIN 12/09. DIONISIO MOODY Rn - 11/26/2018 10:53 EDT documented in this encounter Plan of Treatment Not on file documented as of this encounter Visit Diagnoses Not on filedocumented in this encounter
--- OUTSIDE RECORDS SUMMARY | 2024-10-24 07:15 | XMS_ITS | Encounter Summary ---
Author Organization [employer] Address [address] [place] [address] Care Team Providers Care Weight Clerk Name Role Phone Unavailable Primary Care Provider Unavailabl e Encounter Details Date Type Department Care Team (Late st Contact Info) Description 11/26/2018 Transcribed Document [facility] [place] [address] [place] [address] ProviderDarwin MD [address] [place] [address] Social History Tobacco Use Types [...] Conversion Note - Darwin ProviderMD - 11/26/2018 3:37 PM CDT [facility] Summary Primary Physician: BRIDGETTE MEJIAS MD-ORT Finalized Date/Time: 11/26/18 17:30:38 Pt. Name: CLAUDINE GARAY D.O.B./Sex: 1940 Male Med Rec #: [id number] Physician: MELANIE SANDOVAL MD-INT Financial #: [id number] Pt. Type: I Room/Bed: [facility]/1 Admit/Disch: 11/26/18 12:26:00 - Institution: [facility] OR PACU Case Times Entry 1 In PACU I 11/26/18 16:41:00 Ready for PACU 11/26/18 17:18:00 Discharge Discharge from PACU 11/26/18 17:18:00 I Last Modified By: Mae Meyer Rn 11/26/18 17:29:03 Finalized By: Mae Meyer Rn Document Signatures Signed By: Mea Meyer Rn 11/26/18 17:30 documented in this encounter Plan of Treatment Not on file documented as of this encounter Visit Diagnoses Not on filedocumented in this encounter
--- OUTSIDE RECORDS SUMMARY | 2024-10-24 07:15 | XMS_ITS | Encounter Summary ---
Author Organization [employer] Address [address] [place] [id number] Care Team Providers Care [employer] Name Role Phone Unavailable Primary Care Provider Unavailabl e Encounter Details Date Type Department Care Team (Late st Contact Info) Description 11/29/2018 Transcribed Document [facility] [place] [facility] Family Medicine [address] [place] [address] ProviderDarwin MD [address] [place] [address] Social History Tobacco Use Types [...] Conversion Note - Darwin ProviderMD - 11/29/2018 3:21 PM CDT Patient: CLAUDINE GARAY Age: 78 years Sex: Male : 1940 Associated Diagnoses: Fracture of femoral neck, left, closed; Hypertension; Hyperlipidemia with low HDL; Seizure disorder; Hyponatremia Author: MELANIE SANDOVAL MD-INT Basic Information 78 years old white female with a history of HTN, HLP, seizure disorder on chronic Dilantin and phenobarbital treatment and patient was complaining of left hip pain without any fall and found to have left hip fracture on x-ray done at [facility] ED (or more details please see H&P ). Patient was then taken to the OR by and had ORIF of the fracture. 1???benign essential hypertension, all blood pressure medications were on hold for systolic blood pressure less than 130 and resumed 1 blood pressure became stabilized 2???hyperlipidemia, Lipitor 40 mg was given daily at bedtime 3???GERD, Protonix 40 mg was given daily 4???seizure disorder, will continued on his current home medications with Dilantin and phenobarbital. Patient did not have any seizure for 25 years and I advised them to see a neurologist and that I already discussed his condition with Dr. Isac Ponce sepsis the patient's to take care of him after he gets discharged from rehabilitation. Discharge Information Patient had surgery and is recovering well. patient is awake, alert, cooperative, responsive, and is under no acute distress. Patient is on pain medication as recommended by Patient's pain is well controlled. Patient is on DVT prophylaxis and also on scheduled bowel regimen. Urine out-put is adequate. Started on clear liquid diet & advanced as tolerated to regular diet. initially she had huang cath. wich later on removed and now she is urinating on her own and her urine output is adequate . She started on PT/OT and she is participating well with rehab. Review of Systems Constitutional: No fever, No weakness, No fatigue. Eye: No recent visual problem, No double vision, No visual disturbances. Ear/Nose/Mouth/Throat: No nasal congestion, No sore throat. Respiratory: No shortness of breath, No cough, No wheezing. Cardiovascular: No chest pain, No tachycardia. Gastrointestinal: No nausea, No vomiting. Genitourinary: Negative. Musculoskeletal: Negative. Integumentary: wound stable covered w. clean dressing, No rash, No pruritus. Neurologic: Alert and oriented X4, no dizziness. Health Status Allergies: Allergies (1) Active Reaction No Known Medication Allergies None Documented Current medications: Medications (36) Active Scheduled: (10) #NaCl 0.9% *FLUSH* inj 10 mL 10 mL, IV Push, Q12H aspirin 325 mg tab 325 mg 1 Tab, Oral, Daily atorvastatin 20 mg tab 40 mg 2 Tab, Oral, At Bedtime cephalexin 250 mg cap 500 mg 2 Cap, Oral, Q6H docusate sodium 100 mg cap 100 mg 1 Cap, Oral, BID finasteride 5 mg tab 5 mg 1 Tab, Oral, Daily multiple vitamin (Thera) tab 1 Tab, Oral, Daily pantoprazole EC 40 mg tab 40 mg 1 Tab, Oral, BID With Meals PHENobarbital 32.4 mg tab 129.6 mg 4 Tab, Oral, BID phenytoin sod ext 100 mg cap 200 mg 2 Cap, Oral, Daily Continuous: (2) D5w/NaCl 0.45% 1,000 mL 1,000 mL, IntraVENous, 75 mL/Hr NaCl 0.45% 1,000 mL 1,000 mL, IntraVENous, 100 mL/Hr PRN: (24) acetaminophen 325 mg tab 650 mg 2 Tab, Oral, Q4H ALPRAZolam 0.25 mg tab 0.25 mg 1 Tab, Oral, Q6H bisacodyl 10 mg supp 10 mg 1 Supp, Rectal, BID calcium gluconate 1 Gram 10 mL, IV Piggyback, Daily calcium gluconate + NaCl 0.9% 100 mL 2 Gram 20 mL, IV Piggyback, Daily calcium gluconate + NaCl 0.9% 100 mL 2 Gram 20 mL, IV Piggyback, Q12H cloNIDine 0.1 mg tab 0.1 mg 1 Tab, Oral, Q4H HYDROmorphone 1 mg/1 mL inj 0.5 mg 0.5 mL, IV Push, Q3H magnesium hydroxide 8% liq 30 mL 30 mL, Oral, Daily magnesium sulfate 2 Gram 50 mL, IV Piggyback, Daily magnesium sulfate 2 Gram 50 mL, IV Piggyback, Q2H metoclopramide 10 mg/2 mL inj 5 mg 1 mL, IV Push, Q6H ondansetron 4 mg tab 4 mg 1 Tab, Oral, Q6H oxyCODONE 5 mg tab 5 mg 1 Tab, Oral, Q4H oxyCODONE 5 mg tab 10 mg 2 Tab, Oral, Q4H potassium chloride 10 mEq 50 mL, IV Piggyback, Q1H potassium chloride 40 mEq/30 mL liq 20 mEq 15 mL, Feeding Tube, Q2H potassium chloride 40 mEq/30 mL liq 60 mEq 45 mL, Feeding Tube, Q2H potassium chloride CR 20 mEq tab 20 mEq 1 Tab, Oral, Q2H potassium chloride CR 20 mEq tab 60 mEq 3 Tab, Oral, Q2H scopolamine 1.5 mg/72 hr patch 1 Patch, TransDermal, Q3Days sodium phosphate 15 mMole 5 mL, IV Piggyback, Daily sodium phosphate 15 mMole 5 mL, IV Piggyback, Q6H traZODone 50 mg tab 50 mg 1 Tab, Oral, At Bedtime Problem list: Active Problems (4) Arthritis At risk for sleep apnea Hyperlipidemia with low HDL Seizure disorder Physical Examination VS/Measurements Vital Measurements 11/29/2018 6:00 EDT Systolic Blood Pressure 129 mmHg Diastolic Blood Pressure 70 mmHg Mean Arterial Pressure (MAP)-BMDI 83 Temperature Source Oral Temperature Mode Fahrenheit Temperature, Fahrenheit 99.5 Deg F Clinical Temperature, C 37.5 Deg C Heart Rate Monitored 79 bpm Respiratory Rate 16 Breaths/Min Oxygen Saturation 95 % Oxygen Therapy Mode Room air General: Alert and oriented, No acute distress. Eye: Pupils are equal, round and reactive to light, Extraocular movements are intact. HENT: Oral mucosa is moist. Neck: Supple, No carotid bruit, No jugular venous distention, No lymphadenopathy, No thyromegaly. Respiratory: Lungs are clear to auscultation, Breath sounds are equal. Cardiovascular: Normal rate, Regular rhythm, No murmur. Gastrointestinal: Soft, Non-tender, Normal bowel sounds, No organomegaly. Genitourinary: No costovertebral angle tenderness, No inguinal tenderness. Lymphatics: No lymphadenopathy neck, axilla, groin. Musculoskeletal: Normal strength, No swelling. Integumentary: Warm, Intact, No rash, WOUND STABLE. Neurologic: Alert, Oriented, No focal deficits. Psychiatric: Cooperative, Appropriate mood & affect. Review / Management Results review: All Results 11/29/2018 2:51 EDT Sodium Level 135 mmol/L LOW Potassium Level 4.9 mmol/L Chloride Level 103 mmol/L Carbon Dioxide Level 27 mmol/L Anion Gap 10 Glucose Level 95 mg/dL Blood Urea Nitrogen 14 mg/dL Creatinine Level 0.99 mg/dL eGFR >60 mL/min/1.73m2 eGFR NonAfrican >60 mL/min/1.73m2 Bun/Creatinine 14.1 Calcium Level 8.1 mg/dL LOW 11/28/2018 3:22 EDT Sodium Level 133 mmol/L LOW Potassium Level 4.8 mmol/L Chloride Level 101 mmol/L LOW Carbon Dioxide Level 26 mmol/L Anion Gap 11 Glucose Level 102 mg/dL Blood Urea Nitrogen 17 mg/dL Creatinine Level 0.98 mg/dL eGFR >60 mL/min/1.73m2 eGFR NonAfrican >60 mL/min/1.73m2 Bun/Creatinine 17.3 Calcium Level 8.0 mg/dL LOW . Condition: Stable. Discharge Plan Discharge Summary Plan Discharge Status: stable. Orders Order Profile (Selected) Inpatient Orders Ordered Discharge Notification Pharmacy: Start: 11/29/18 15:18:42 EDT Discharge: Start: 11/29/18 15:18:00 EDT, Discharge to: Rehabilitation unit/facility. Diagnosis Fracture of femoral neck, left, closed - Discharge, Emergency medicine, Medical. Hypertension - Discharge, Emergency medicine, Medical. Hyperlipidemia with low HDL - Discharge, Medical. Seizure disorder - Discharge, Medical. Hyponatremia - Discharge, Medical. Course Improving. Stable. Plan/ pt is HD & CLINICALLY STABLE AFEBRILE OK TO D/C TO [facility] TO CONTINUE HIS CARE AND REHABILITATION AND TO FOLLOW-UP WITH DR. ISAC CORONA SCHEDULED. Orders Order Profile (Selected) Prescriptions Prescribed Keflex 500 mg oral capsule: 1 Cap, Oral, Cap, Q8H, X 7 Day(s), # 21 Cap, 0 Refill(s), other reason (Rx) [place] 7.5 mg-325 mg oral tablet: 1 Tab, Oral, Tab, Q4H, PRN as needed for pain, 1-2 by mouth every 4 hours when necessary, X 10 Day(s), # 60 Tab, 0 Refill(s), other reason (Rx) Documented Medications Documented Chondroitin-Glucosamine 600 mg-750 mg oral tablet: 1 Tab, Oral, BID, 0 Refill(s) Lipitor 40 mg oral tablet: 1 Tab, Oral, Daily, 0 Refill(s) PHENobarbital 64.8 mg oral tablet: 2 Tab, Oral, BID, 0 Refill(s) aspirin 325 mg oral tablet: 1 Tab, Oral, Tab, Daily, 0 Refill(s) calcium (as carbonate)-vitamin D 600 mg-200 intl units oral tablet: 1 Tab, Oral, QPM, 0 Refill(s) cyanocobalamin 1000 mcg sublingual tablet: 1 Tab, SubLINgual, QPM, 0 Refill(s) cyclobenzaprine 10 mg oral tablet: 0.5-1 tab, Oral, Tab, TID, PRN as needed for spasm, 0 Refill(s) finasteride 5 mg oral tablet: 1 Tab, Oral, Daily, 0 Refill(s) multivitamin: 1 Tab, Oral, Daily, 0 Refill(s) pantoprazole 40 mg oral delayed release tablet: 1 Tab, Oral, DR Tab, BIDAC, Before breakfast and dinner, # 30 Tab, 0 Refill(s) phenytoin 100 mg oral capsule, extended release: 2 Cap, Oral, Daily, 0 Refill(s). Impression and Plan twt 40 mn documented in this encounter Plan of Treatment Not on file documented as of this encounter Visit Diagnoses Not on filedocumented in this encounter
--- OUTSIDE RECORDS SUMMARY | 2024-10-24 07:15 | XMS_ITS | Encounter Summary ---
Author Organization [facility] [employer] Address [address] [place] [id number] Care Team Providers Care Camp Guard Name Role Phone Unavailable Primary Care Provider Unavailabl e Encounter Details Date Type Department Care Team (Late st Contact Info) Description 11/26/2018 Transcribed Document [facility] [place] [address] ProviderDarwin MD [address] [place] [address] Social History Tobacco Use Types [...] Darwin ProviderMD - 11/26/2018 3:37 PM CDT [facility] IntraOp Summary Primary Physician: BRIDGETTE MEJIAS MD-ORT Finalized Date/Time: 11/27/18 11:34:13 Pt. Name: CLAUDINE GARAYO.B./Sex: 1940 Male Med Rec #: [id number] Physician: MELANIE SANDOVAL MD-INT Financial #: [id number] Pt. Type: I Room/Bed: [facility]/1 Admit/Disch: 11/26/18 12:26:00 - Institution: [facility]Op Case Attendance Entry 1 Entry 2 Entry 3 Case Attendee BRIDGETTE MEJIAS GRAHAM, KIMBERLY, RN Nelda Mora MD-ORT Art History Professor Role Performed Surgeon/Proceduralist, Director Of Safety And Security, First Scrub, First First Time In 11/26/18 15:20:00 11/26/18 15:20:00 11/26/18 15:20:00 Time Out 11/26/18 16:42:00 11/26/18 16:42:00 11/26/18 16:42:00 Procedure Femur Intramedullary Femur Intramedullary Femur Intramedullary Nailing Hip Gamma Nailing Hip Gamma Nailing Hip Gamma Other Attendee Superficial Wound Closed By: Last Modified By: ERICA MARSHALL, ERICA GELLER, RN ERICA MARSHALL, JAIRON 11/26/18 16:32:39 11/26/18 16:32:39 11/26/18 16:32:39 Entry 4 Entry 5 Entry 6 Case Attendee BANG WYNNE, REYNA HI, JEAN CLAUDE SHIN, Parking Enforcement Specialist Role Performed Warp Dresser, First Anesthesiologist Customer Associate Time In 11/26/18 15:20:00 11/26/18 15:20:00 11/26/18 15:20:00 Time Out 11/26/18 16:42:00 11/26/18 16:42:00 11/26/18 16:42:00 Procedure Femur Intramedullary Femur Intramedullary Femur Intramedullary Nailing Hip Gamma Nailing Hip Gamma Nailing Hip Gamma Other Attendee Superficial Wound Closed By: Last Modified By: ERICA MARSHALL, ERICA GELLER, ERICA GELLER, JAIRON 11/26/18 16:32:39 11/26/18 16:32:39 11/26/18 16:32:39 Entry 7 Case Attendee OTHER, ATTENDEE Role Performed Vendor Time In 11/26/18 15:20:00 Time Out 11/26/18 16:42:00 Procedure Femur Intramedullary Nailing Hip Gamma Other Attendee griselda orellana Superficial Wound Closed By: Last Modified By: ERICA MARSHALL, JAIRON 11/26/18 15:48:47 [facility] IntraOp Case Attendance Audit 11/26/18 16:32:39 Senior Accounting Manager: LELE Modifier: LELE 1 <+> Time Out 1 <*> Procedure Femur Intramedullary Nailing Hip Gamma 2 <+> Time Out 2 <*> Procedure Femur Intramedullary Nailing Hip Gamma 3 <+> Time Out 3 <*> Procedure Femur Intramedullary Nailing Hip Gamma 4 <+> Time Out 4 <*> Procedure Femur Intramedullary Nailing Hip Gamma 5 <+> Time Out 5 <*> Procedure Femur Intramedullary Nailing Hip Gamma 6 <+> Time Out 6 <*> Procedure Femur Intramedullary Nailing Hip Gamma 7 <+> Time Out 7 <*> Procedure Femur Intramedullary Nailing Hip Gamma 11/26/18 15:49:23 Senior Accounting Manager: LELE Modifier: LELE <+> 1 Procedure 2 <*> Procedure Femur Intramedullary Nailing Hip Gamma 3 <*> Procedure Femur Intramedullary Nailing Hip Gamma 4 <*> Procedure Femur Intramedullary Nailing Hip Gamma 5 <*> Procedure Femur Intramedullary Nailing Hip Gamma 6 <*> Procedure Femur Intramedullary Nailing Hip Gamma 7 <*> Procedure Femur Intramedullary Nailing Hip Gamma [facility] IntraOp Case Times Entry 1 Patient In Room Time 11/26/18 15:20:00 Out Room Time 11/26/18 16:42:00 Anesthesia Start Time 11/26/18 15:20:00 Stop Time 11/26/18 16:42:00 Anesthesia Ready 11/26/18 15:20:00 Surgery / Procedure Times Start Time 11/26/18 15:37:00 Stop Time 11/26/18 16:32:00 Last Modified By: ERICA MARSHALL RN 11/26/18 15:37:53 [facility] IntraOp Case Times Audit 11/26/18 16:32:27 Senior Accounting Manager: LELE Modifier: LELE <+> 1 Out Room Time <+> 1 Stop Time <+> 1 Stop Time [facility] IntraOp Cautery Entry 1 ESU Identification Cautery Type Monopolar ESU ID Number [id number] ID Type Hospital Number Cautery Settings Cut Setting 40 Coag Setting 40 ESU Grounding Pad Ground Pad Type Adult Grounding Pad Site Right thigh Grounding Pad ERICA MARSHALL RN Applied By Grounding Pad Site Intact Skin Condition Before Cautery Grounding Pad Site Unchanged Skin Condition After Cautery Last Modified By: ERICA MARSHALL RN 11/26/18 15:54:47 [facility] IntraOp Counts Verification Entry 1 Entry 2 Procedure Femur Intramedullary Femur Intramedullary Nailing Hip Gamma Nailing Hip Gamma Count Info Count Type Sponge, Sharps Sponge, Sharps Counts Verification Baseline/pre-procedure Before wound closure Sequence Count Results Not Applicable Correct, surgeon notified If Incorrect or Waived complete the Counts Action Taken form: If Intentional Retention, complete the Intential Retention form: Counts Performed By Count Performed By Nelda Mora, Nelda Mora, (Scrub) Art History Professor Art History Professor Count Performed By ERICA MARSHALL RN GRAHAM, KIMBERLY, RN (RN) Last Modified By: ERICA MARSHALL RN GRAHAM, KIMBERLY, RN 11/26/18 15:52:49 11/26/18 15:52:49 [facility] IntraOp Counts Final Entry 1 Procedure Femur Intramedullary Nailing Hip Gamma Final Count Info Count Type Sponge, Sharps Counts Verification Skin Closure/end of Sequence procedure Count Results Correct, surgeon notified Counts Performed By Count Performed By Nelda Mora, (Scrub) Art History Professor Count Performed By ERICA MARSHALL RN (RN) Last Modified By: ERICA MARSHALL RN 11/26/18 15:55:25 [facility] IntraOp Departure from OR Entry 1 Integumentary Assessment Integumentary WDL Assessment WDL Transfer/Handoff Transfer to PACU Phase I Handoff Method Bedside/Face to face Post-op Transport Bed (including Via specialty) Patient Transport ERICA MARSHALL RN, Accompanied by REYNA LEDEZMA DO-ANS Last Modified By: ERICA MARSHALL RN 11/26/18 15:55:57 [facility] IntraOp Dressing and Packing Entry 1 Type Dressing Location OPERATIVE SITE Wound Dressing Item Occlusive dressing Applied By BRIDGETTE MEJIAS MD-ORT Last Modified By: ERICA MARSHALL RN 11/26/18 15:55:31 [facility] IntraOp Fire Risk Assessment Entry 1 Fire Info Surgical Site or 0- No Incision Above the Xyphoid Open O2 Source 0- No (Mask or Cannula) Available Ignition 1- Yes (ESU, Laser, Light Source) Fire Risk 1 Assessment Score Fire Score Fire Risk Yes Assessment Complete Fire Risk ERICA MARSHALL RN Assessment Verified By Fire Risk 11/26/18 15:37:00 Assessment Verified Date/Time Fire Risk Standard Fire Yes Safety Precautions Followed Last Modified By: ERICA MARSHALL RN 11/26/18 15:49:32 [facility] IntraOp General Case Bench Assembler Battery 1 Case Information OR OR 01 [facility] Level 1 Room Verified Yes Wound Class I - Clean Specialty SN Orthopedic Anesthesia Type General ASA Class 2E Diagnosis Preop Diagnosis fracture left hip Postop Same As Preop Yes Postop Diagnosis fracture left hip Last Modified By: ERICA MARSHALL RN 11/26/18 15:53:28 [facility] IntraOp Implant Log Entry 1 Entry 2 Type Implant (Synthetic) Implant (Synthetic) Implant Log Implant Type Hardware Hardware Tissue Implant Type Implant NAIL LN R1/5 TI L SCR LAG [id number] 3 10. Identification [id number] Description Implant Quantity 1 1 Implant Site Implant Identification Model Number Implant Identification Serial Number Implant [id number] Identification Lot Number Implant [place]:Porter Porter:Obinna Identification Orthopaedics Orthopaedics Job Press Operator Name: Implant [id number] Identification Catalog Number Implant Size Implant Has an Yes Yes Expiration Date Implant Expiration 06/30/23 06/30/23 Date Wasted Radioactive Material Time Implanted Tissue Implant Continue for Tissue Implant Documentation Tissue Identification Number Graft Prep Per Job Press Operator Instructions: Tissue Preparation Method: Reconstitution Solution: Reconstitution Solution Lot Number Reconstitution Solution Expiration Date: Thawing Solution Thawing Solution Lot Number Thawing Solution Expiration Date Preparation Materials, Other Preparation Materials, Other Lot Number Preparation Materials, Other Expiration Date Tissue Prepared/Processed By Job Press Operator Paperwork Completed Implant Type Comment Last Modified By: ERICA MARSHALL RN GRAHAM, KIMBERLY, RN 11/26/18 16:27:50 11/26/18 16:27:50 [facility] IntraOp Intraoperative Assessment Entry 1 Handoff Method Bedside/Face to face Valid History / Yes Physical in Chart Preoperative Yes Checklist Reviewed/Evaluated Allergies Reviewed Yes Patient is Latex No Sensitive Isolation Not applicable Precautions Noted Level of WDL Consciousness (WDL = Alert, Oriented to Person, Place, and Time) Skin Assessment Yes Verified Present Upon IVs Arrival to OR Last Modified By: ERICA MARSHALL RN 11/26/18 15:50:17 [facility] IntraOp Intraoperative Equipment Entry 1 Equipment Intraop Monitoring Electrocardiogram Three lead placement (ECG) Electrode Placement Blood Pressure Non-Invasive BP Device Source Blood Pressure Arm, left upper Location Pulse Oximeter Hand, right Probe Site Antiembolic Devices Scopes Photo/Video Documentation Photo No Video No Last Modified By: ERICA MARSHALL RN 11/26/18 15:54:03 [facility] IntraOp Patient Positioning Entry 1 Procedure Femur Intramedullary Nailing Hip Gamma Body Position Fractured bed position Left Arm Position Secured across chest Right Arm Position Secured on padded arm board Left Leg Position Traction Right Leg Position Secured in Leg Padilla Feet Uncrossed Yes Pressure Points Yes Checked Positioning Devices Table, Fracture, Traction Devices, Arm Board Device Position PT. POSITIONED ON HANA TABLE, OPERATIVE FOOT WRAPPED IN COBAN AND PLACED IN FRACTURE BOOT. OPERATIVE ARM SECURED ACROSS CHEST AND ARNOLDO WRAPPED IN PLACE. NON-OPERATIVE LEG PLACED ON POPLITEAL SUPPORT. Positioned By BRIDGETTE MEJIAS MD-ORT, ERICA MARSHALL RN, BANG WYNNE PA Position Verified Positioning Yes Verified by Anesthesia Positioning Yes Verified by Surgeon Last Modified By: ERICA MARSHALL RN 11/26/18 15:49:17 [facility] IntraOp Sign In Entry 1 Patient, Site, Yes Procedure Identified Surgical Consent Yes Confirmed Relevant Surgical Yes Documents Available Surgical Site Yes Marked by person performing procedure Anesthesia Machine Yes Check Completed Medication Checks Yes Completed Allergies No Airway Difficult No Airway/Aspiration Risk Difficult No Airway/Aspiration Intervention Equipment Available Blood Loss Risk No Blood Loss No Intervention Equipment Prepared and Ready Blood Identifiers Not applicable Verified Per Policy Hypothermia Risk Yes Warming Measures Yes Taken Last Modified By: ERICA MARSHALL RN 11/26/18 15:38:12 [facility] Intra Op Sign Out Entry 1 RN Confirmation Surgical Yes Procedure(s) Identified Instrument, Sponge Yes and Sharps Counts Correct/Documented Equipment Problems N/A Documented Specimen Labeled N/A Correctly Urinary Catheter Yes Documented in IView Buck Patient Yes Recovery Concerns Reviewed with Anesthesia Provider, Surgeon and RN Buck Patient Yes Management Concerns Reviewed with Anesthesia Provider, Surgeon and RN Safety Checklist Yes Elements Complete? RN Sign Out ERICA MARSHALL RN Signature RN Sign Out 11/26/18 16:32:00 Signature Date/Time Plan of Care Outcome - Fire Risk OUTCOME STATEMENT: Goal met Patient is free from injury related to surgical fire Plan of Care Outcome - Pt Positioning OUTCOME STATEMENT: Goal met Absence of signs and symptoms of positioning injury. Plan of Care Outcome - Skin Prep OUTCOME STATEMENT: Goal met Intraoperative care is consistent with measures to prevent infection Plan of Care Outcome - Xray/Images OUTCOME STATEMENT: Goal met Absence of observable signs or symptoms of radiation injury Plan of Care Outcome - Counts OUTCOME STATEMENT: Goal met Absence of signs and symptoms of injury related to extraneous objects Last Modified By: ERICA MARSHALL RN 11/26/18 15:55:46 [facility] Intra Op Sign Out Audit 11/26/18 16:32:14 Senior Accounting Manager: LELE Modifier: LELE <+> 1 RN Sign Out Signature Date/Time [facility] IntraOp Skin Prep Entry 1 Procedure Femur Intramedullary Nailing Hip Gamma Prescribed Yes Pre-Surgical Prep Completed Prep Area OPERATIVE HIP AND LEG Intraop Prep Integumentary WDL Assessment WDL Prep Agents Chloraprep Prep by ERICA MARSHALL RN Hair Removal Last Modified By: ERICA MARSHALL RN 11/26/18 15:53:35 [facility] IntraOp Surgical Procedures Entry 1 Procedure Femur Intramedullary Nailing Hip Gamma Additional left hip gamma nailing Procedure Description Primary Procedure Yes Primary Surgeon BRIDGETTE MEJIAS MD-ORT Start 11/26/18 15:37:00 Stop 11/26/18 16:32:00 Anesthesia Type General Specialty SN Orthopedic Wound Class I - Clean Last Modified By: ERICA MARSHALL RN 11/26/18 15:49:22 [facility] IntraOp Surgical Procedures Audit 11/26/18 16:32:07 Senior Accounting Manager: LELE Modifier: LELE 1 <*> Procedure Femur Intramedullary Nailing Hip Gamma 1 <+> Stop [facility] IntraOp Temp Regulation Devices Entry 1 Temp Regulation Temperature Forced Air Warming Regulation Device device Temperature Upper body Regulation Site Temperature REYNA LEDEZMA DO-ANS Regulation Device Applied by Last Modified By: ERICA MARSHALL RN 11/26/18 15:54:26 [facility] IntraOp Time Out Entry 1 Procedure to be Femur Intramedullary Performed Nailing Hip Gamma Time Out Time Out Pause Time 11/26/18 15:36:00 All activity Yes suspended (unless life threatening emergency) Team Verbally Correct patient Confirms Information identity, Correct side and site are marked, Consent form is present and accurate, Agreement on the procedure to be done, Correct patient position, Relevant images/results properly labeled/appropriately displayed, Confirm antibiotics have been administered, Confirm the skin prep has dried, Confirm prosthesis/implant/devic e is present, Performed in location of procedure after prepped/draped Antibiotic Yes Prophylaxis Administered Or In Progress Within the Last 60 Minutes Beta Santos N/A Administered Venous N/A Thromboembolism Prophylaxis Required Anticipated Critical Events Surgeon None expected Anesthesia Provider None expected Essential Imaging N/A Labeled and Displayed Last Modified By: ERICA MARSHALL RN 11/26/18 15:49:58 [facility] IntraOp X-Ray and Images Entry 1 X-Ray/Imaging Type Fluoroscopy Fluoroscopy Type C-Arm Business Integration Analyst Name JEAN CLAUDE ORTIZ, Parking Enforcement Specialist Protective Devices Yes Used Last Modified By: ERICA MARSHALL RN 11/26/18 15:55:13 Case Comments <None> Finalized By: Gwen Cueva, RN Document Signatures Signed By: ERICA MARSHALL RN 11/26/18 16:32 Gwen Cueva, JAIRON 11/27/18 11:34 Unfinalized History Date/Time Username Reason for Unfinalizing Freetext Reason for Unfinalizing 11/27/18 11:31 VALENTIN Chart Audit documented in this encounter Plan of Treatment Not on file documented as of this encounter Visit Diagnoses Not on filedocumented in this encounter
--- OUTSIDE RECORDS SUMMARY | 2024-10-24 07:15 | XMS_ITS | Clinical Summary ---
Author Organization [employer] Address [address] [place] [address] Care Team Providers Care Shuttle Truck Driver Name Role Phone Unavailable Primary Care Provider Unavailabl e Social History Tobacco Use Types Packs/Day Years Used Date Smoking Tobacco: Never Assessed Sex and Gender Information Value Date Recorded Sex Assigned at Male 10/27/2021 3:42 PM CDT Legal Sex Male 3:42 PM CDT Gender Identity Male 10/27/2021 3:42 PM CDT Sexual Orientation Not on file Plan of Treatment Not on file
--- OUTSIDE RECORDS SUMMARY | 2024-10-24 07:15 | XMS_ITS | Encounter Summary ---
Author Organization [facility] Address [address] [place] [address] Care Team Providers Care Rod Welder Name Role Phone Unavailable Primary Care Provider Unavailabl e Encounter Details Date Type Department Care Team (Late st Contact Info) Description 11/26/2018 Transcribed Document [facility] [place] Medicine [address] [place] [address] ProviderDarwin MD [address] [place] [address] Social History Tobacco Use Types [...] Historical ProviderMD - 11/26/2018 9:05 PM CDT Evaluation, Occupational Therapy Entered On: 11/27/2018 9:28 EDT Performed On: 11/27/2018 8:37 EDT by ANITA ALVAREZ, OTR/L General Information, OT Visit Type, OT : Initial evaluation Patient Orders : Order Date Order Ordering 11/26/2018 21:05 OT Evaluation and Treatment Ordered By: BRIDGETTE MEJIAS MD-ORT 11/26/2018 21:05 OT Treatment Instructions Ordered By: BRIDGETTE MEJIAS MD-OREric Active Diagnoses : 11/26/2018 00:00 Epilepsy, unspecified, not intractable, without status epilepticus 11/26/2018 00:00 Essential (primary) hypertension 11/26/2018 00:00 Fracture of unspecified part of neck of left femur, initial encounter for closed fracture 11/26/2018 00:00 Hip pain-swelling 11/26/2018 00:00 Hyperlipidemia, unspecified 11/26/2018 00:00 Hypo-osmolality and hyponatremia Therapy Diagnosis, OT : reduced mobility Admission Date : 11/26/2018 12:26 Assisted by, OT : Physical Therapist Personal Devices : Personal Devices No Devices Recorded Assistive Devices : Assistive Devices No Devices Recorded Precautions in Place : Fall prevention measures ANITA ALVAREZ OTR/Delilah - 11/27/2018 9:20 EDT General Status Patient Received Status : Long sitting in bed, Bed alarm activated, HOB elevated Treatment Start Time : 11/27/2018 8:37 EDT Patient Left Status : Up in chair, Chair alarm activated, RN/PCT informed, Family/Visitors at bedside, Communication board completed, All needs met and within reach RN/PCT Informed Comment : nursing ok'd tx. id and verified. Treatment End Time : 11/27/2018 8:58 EDT Treatment Time : 21 Minute(s) ANITA ALVAREZ OTR/Delilah - 11/27/2018 9:20 EDT History and Environment, OT Living Situation, Therapy : Home Patient Lives With : Spouse Persons Providing Information : Patient Home Equipment, Therapy : Walker Walker : Walker, front wheel, Walker, standard Home Setup : One story Stairs : No Ramp : Yes ANITA ALVAREZ OTR/Delilah - 11/27/2018 9:20 EDT Prior LOF Bathing, OT : Independent Prior LOF Bed Mobility : Independent Prior LOF Upper Body Dressing, OT : Independent Prior LOF Lower Body Dressing, OT : Independent Prior LOF Toileting : Independent Prior LOF Transfer : Independent Prior LOF Grooming, OT : Independent Prior LOF for IADLs, OT : Independent ANITA ALVAREZ OTR/Delilah - 11/27/2018 9:20 EDT Upper Extremity Upper Extremity Dominance : Right Right UE Active ROM : WFL Right UE Strength : WFL Left UE Active ROM : WFL Left UE Strength : WFL Upper Extremity Strength Impaired : No Fine Motor Coordination Impaired : No NAITA ALVAREZ OTR/Delilah - 11/27/2018 9:20 EDT Self Care/Home Management, OT Self Feeding Assist Level, OT : Independent, complete Grooming Assist Level, OT : Independent, complete Bathing Assist Level, OT : Supervision or set-up Upper Body Dressing Assist Level, OT : Independent, complete Lower Body Dressing Assist Level, OT : Assist, minimal Toileting Assist Level : Assist, minimal Toileting Device : [id number] commode Toilet Transfer Assist Level : Assist, minimal Toilet Transfer Device : Belt, gait, Walker, rolling, [id number] commode ANITA ALVAREZ OTR/Delilah 11/27/2018 9:20 EDT Mobility Device/Prosthesis/Wt Bearing Weight Bearing Status Maintained : Yes Weight Bearing Status : As tolerated Functional Mobility Device : Gait belt, Walker, front wheel Functional Mobility with Brace/Splint : No ANITA ALVAREZ OTR/Delilah 11/27/2018 9:20 EDT Functional Mobility Mobility Grid Supine to Sit : Supervision/set-up Sit to Stand : Rehab Minimal assistance Bed to Chair : Rehab Minimal assistance Stand to Sit : Rehab Minimal assistance ANITA ALVAREZ OTR/Delilah 11/27/2018 9:20 EDT AM PAC Daily Activity Putting On/Taking Off Lower Body Clothes : A little Bathing (Washing, Rinsing, Drying) : A little Toileting Includes Toilet, Bedpan, Urinal : A little Putting On/Taking Off Upper Clothing : None Taking Care of Grooming : None Eating Meals : None AM-PAC Daily Activity Raw Score : 21 ANITA ALVAREZ OTR/Delilah 11/27/2018 9:20 EDT Image 3 - Images currently included in the form version of this document have not been included in the text rendition version of the form. Activity Tolerance, OT Activity Comment : GOOD ANITA ALVAREZ OTR/Delilah - 11/27/2018 9:20 EDT Cognition Assessment, OT Orientation : Oriented x 4 ANITA ALVAREZ OTR/Delilah 11/27/2018 9:20 EDT Education OT Occupational Therapy Education Grid Activity of Daily Living Training : Verbalizes understanding, Returns demonstration, Needs further teaching Functional Mobility Training : Verbalizes understanding, Returns demonstration, Needs further teaching Role of Occupational Therapy : Verbalizes understanding ANITA ALVAREZ OTR/Delilah 11/27/2018 9:20 EDT Indication Assessment, OT Occupational Therapy Indicated : Yes Problem List, OT : Impaired, bed mobility, Impaired, activities daily living, Impaired functional mobility, Impaired, standing balance, Impaired, transfers Potential Barriers, OT : None evident Rehabilitation Potential, OT : Good ANITA ALVAREZ OTR/Delilah - 11/27/2018 9:20 EDT Plan of Care, OT OT Tx Plan/Goals Established w Patient : Yes OT Frequency Rehab : Other: 3-5 x week OT Duration Rehab : Seven Days OT Treatments Planned : Activities of daily living, Functional mobility training, Safety education, Therapeutic activities, Therapeutic exercises Plan of Care Comment, OT : see OT POC. ANITA ALVAREZ OTR/Delilah - 11/27/2018 9:20 EDT Custodial Goals, OT Other LTG Grid Goal #1 Goal #2 Goal #3 Goal : Pt will VU of home safety and car transfer handout. Pt will complete ADL transfer with CGA, RW level. Pt will complete LB self care task with CGA, AE prn. Date to Meet : 12/03/2018 EDT 12/03/2018 EDT 12/03/2018 EDT Goal Status : Initial goal Initial goal Initial goal ANITA ALVAREZ OTR/Delilah - 11/27/2018 9:20 EDT ANITA ALVAREZ OTR/Delilah - 11/27/2018 9:20 EDT ANITA ALVAREZ OTR/Delilah - 11/27/2018 9:20 EDT Treatment Note Subjective Comment : pt ok'd tx. Additional Objective Information : EVAL = 8 min ADL = 13 min Pt educated on ADL transfers at RW level. Assessment : Pt is min assist with ADL transfers and LB self care tasks. Pt to benefit from continued OT services during in-patient stay. Plan for Treatment : Pt to be seen by skilled OT 3-5 x week. ANITA ALVAREZ OTR/Delilah - 11/27/2018 9:20 EDT Pain Assessment Pain Scaled Used : 0-10 Pain scale Pain Score Pre-Intervention : 2 Pain Score During-Intervention : 2 Pain Score Post-Intervention. : 2 Location : Hip, left ANITA ALVAREZ OTR/Delilah - 11/27/2018 9:20 EDT Image 1 - Images currently included in the form version of this document have not been included in the text rendition version of the form. Anticipated Discharge Needs, OT/PT Anticipated Discharge to : Other: to be determined. Recommend Continued Therapy at Discharge : Yes ANITA ALVAREZ, OTR/L - 11/27/2018 9:[address] [facility] OT Charges OT Selfcare/Hm Mgmt Ea 15 Min : 1 OT Eval Low Complexity : 1 ANITA ALVAREZ, OTR/L - 11/27/2018 9:20 EDT Electronically signed by Marybeth [facility] Conversion Pin Sticker Cerner at 08/17/2022 9:59 AM CDT documented in this encounter Plan of Treatment Not on file documented as of this encounter Visit Diagnoses Not on filedocumented in this encounter
--- OUTSIDE RECORDS SUMMARY | 2024-10-24 07:15 | XMS_ITS | Encounter Summary ---
Author Organization [employer] Address [address] [place] [address] Care Team Providers Care All Purpose Clerk Name Role Phone Unavailable Primary Care Provider Unavailabl e Encounter Details Date Type Department Care Team (Late st Contact Info) Description 12/04/2018 Transcribed Document [facility] [place] [address] [place] [address] ProviderDarwin MD [address] [place] [address] Social History Tobacco Use Types Packs/Day Years Used Date Smoking Tobacco: Never Assessed Sex and Gender Information Value Date Recorded Sex Assigned at Male 10/27/2021 3:42 PM CDT Legal Sex Male 3:42 PM CDT Gender Identity Male 10/27/2021 3:42 PM CDT Sexual Orientation Not on file documented as of this encounter Miscellaneous Notes * Cerner Conversion Note - Darwin ProviderMD - 12/04/2018 12:21 PM CDT UM Authorization Entered On: 12/04/2018 12:22 EDT Performed On: 12/04/2018 12:21 EDT by VANDANA CRUZ RN-Utilization Review Primary Insurance Authorization Authorization and Policy Numbers : Insurance 1 Health Plan: [facility] Policy Number: [id number] Authorization Number: [id number] Insurance Primary Name : [facility] Medicare Authorization Status-Primary : Admit approved Reference Number-Primary : [id number] Authorization Number-Primary : [id number] Number of Days Authorized-Primary : 5 Authorized Service Begin Date-Primary : 11/26/2018 EDT Authorized Service End Date-Primary : 11/30/2018 EDT Authorization Comments-Primary : [facility] approved per fax back Historical Authorization Comments-Primary : Comment 1: [facility] d/c date and summary attached to website ---auth still pending (CRUZ, VANDANA, RN-Utilization Review 12/01/2018 11:06) Comment 2: Uploaded clinicals to [facility] Medicare via [employer] for continuing stay. (JONY PALOMO, RN-Utilization Review 11/28/2018 13:33) Comment 3: [facility] approved per fax back -- nrd 11/28 (VANDANA CRUZ, RN-Utilization Review 11/27/2018 16:05) Comment 4: Uploaded clinicals to [facility] Medicare via [employer]. (JONY PALOMO, RN-Utilization Review 11/27/2018 09:20) VANDANA CRUZ RN-Utilization Review - 12/04/2018 12:21 EDT documented in this encounter Plan of Treatment Not on file documented as of this encounter Visit Diagnoses Not on filedocumented in this encounter
--- OUTSIDE RECORDS SUMMARY | 2024-10-24 07:15 | XMS_ITS | Encounter Summary ---
Author Organization [employer] Address [address] [place] [address] Care Team Providers Care Forming Operator Name Role Phone Unavailable Primary Care Provider Unavailabl e Encounter Details Date Type Department Care Team (Late st Contact Info) Description 11/26/2018 Transcribed Document [facility] [place] Family Medicine [address] [place] [address] ProviderDarwin MD [address] [place] [address] Social History Tobacco Use Types Packs/Day Years Used Date Smoking Tobacco: Never Assessed Sex and Gender Information Value Date Recorded Sex Assigned at Male 10/27/2021 3:42 PM CDT Legal Sex Male 3:42 PM CDT Gender Identity Male 10/27/2021 3:42 PM CDT Sexual Orientation Not on file documented as of this encounter Miscellaneous Notes * Cerner Conversion Note - Darwin Obrien MD - 11/26/2018 11:29 PM CDT Event Note Entered On: 11/26/2018 23:31 EDT Performed On: 11/26/2018 23:29 EDT by Cris Goodman RN Event Note Event Date/Time : 11/26/2018 23:29 EDT Event Location : Assigned room Event Details : Nursing assessment additional narrative Description of Event : Pharmacy called earlier and questioned whether the vancomycin needed to be given. I told him that I was uncertain but it was on my MAR. Pharmacist stated he was going to call Dr. Lyon and he would call me back. No one called from pharmacy. Called pharmacy at [phone]. New pharmacist stated that she told him to tell me to go ahead and start it; however, I was not notified. Starting Vanc now. Cris Goodman RN - 11/26/2018 23:29 EDT Electronically signed by Marybeth [facility] Conversion Sports Trainer Cerner at 08/17/2022 10:09 AM CDT documented in this encounter Plan of Treatment Not on file documented as of this encounter Visit Diagnoses Not on filedocumented in this encounter
--- OUTSIDE RECORDS SUMMARY | 2024-10-24 07:15 | XMS_ITS | Encounter Summary ---
Author Organization [employer] Address [address] [place] [address] Care Team Providers Care Nuisance Wildlife Trapper Name Role Phone Unavailable Primary Care Provider Unavailabl e Encounter Details Date Type Department Care Team (Late st Contact Info) Description 11/27/2018 Transcribed Document [facility] [place] [address] [place] [address] ProviderDarwin MD [address] [place] [address] Social History Tobacco Use Types Packs/Day Years Used Date Smoking Tobacco: Never Assessed Sex and Gender Information Value Date Recorded Sex Assigned at Male 10/27/2021 3:42 PM CDT Legal Sex Male 3:42 PM CDT Gender Identity Male 10/27/2021 3:42 PM CDT Sexual Orientation Not on file documented as of this encounter Miscellaneous Notes * Cerner Conversion Note - Darwin ProviderMD - 11/27/2018 3:49 PM CDT Initial Discharge Planning Entered On: 11/27/2018 15:52 EDT Performed On: 11/27/2018 15:49 EDT by CHINMAY PASCUAL, Rn-Combination Technician Initial Assessment I Previously Documented Living Environment : No qualifying data available. Living Situation : Home Patient Lives With : Spouse Is the Patient a Caregiver at Home? : No Emergency Contact #1 : Thao Strauss Emergency Contact #1 Emergency Contact #1 Relationship : daughter Emergency Contact #2 : Lavern Fuentes Emergency Contact #2 Emergency Contact #2 Relationship : Enter Doctors Name : Mini Freire Does Patient have PCP Listed? : Yes Medical Durable Power of Field Radio Operator Name : patient states his is first and son is secondary if she is unable Legal Guardian : No Is Guardianship Needed : No CHINMAY PASCUAL Rn-Combination Technician - 11/27/2018 15:49 EDT Initial Assessment II Sensory and Motor Deficits : None Current Home Treatments and Equipment : Walker, Wheelchair Services and Community Resources : Physical Therapy Services and Community Resources Addl Comments : Patient was going to outpatient PT in [place] CHINMAY PASCUAL Rn-Combination Technician - 11/27/2018 15:49 EDT Discharge Needs I Anticipated Discharge Date : 11/29/2018 EDT Anticipated Discharge To, CM : Home with home health, Rehabilitation Unit Current Home Treatment/Equipment : Current Home Treatment/Equipment No qualifying data available. CHINMAY PASCUAL Rn-Combination Technician - 11/27/2018 15:49 EDT Discharge Needs II Professional Skilled Services : Professional Skilled Services No qualifying data available. Needs Assistance with Transportation : No Discharge Options Discussed with Patient : DME, Home Health, Outpatient services, Short term rehabilitation CHINMAY PASCUAL Rn-Combination Technician - 11/27/2018 15:49 EDT documented in this encounter Plan of Treatment Not on file documented as of this encounter Visit Diagnoses Not on filedocumented in this encounter
--- OUTSIDE RECORDS SUMMARY | 2024-10-24 07:15 | XMS_ITS | Encounter Summary ---
Author Organization [employer] Address [address] [place] [address] Care Team Providers Care Professor Of Environmental Engineering Name Role Phone Unavailable Primary Care Provider Unavailabl e Encounter Details Date Type Department Care Team (Late st Contact Info) Description 11/27/2018 Transcribed Document [facility] [place] Family Medicine [address] [place] [address] ProviderDarwin MD [address] [place] [address] Social History Tobacco Use Types [...] Conversion Note - Darwin ProviderMD - 11/27/2018 11:18 AM CDT Event Note Entered On: 11/27/2018 11:19 EDT Performed On: 11/27/2018 11:18 EDT by Frida Muir Rn Event Note Event Date/Time : 11/27/2018 8:37 EDT Event Location : Assigned room Description of Event : Called pharmacy per verbal order of Dr. Lyon to reorder patient's home medication, Proscar 5 mg daily. Frida Muir Rn - 11/27/2018 11:18 EDT documented in this encounter Plan of Treatment Not on file documented as of this encounter Visit Diagnoses Not on filedocumented in this encounter
--- OUTSIDE RECORDS SUMMARY | 2024-10-24 07:15 | XMS_ITS | Encounter Summary ---
Author Organization [employer] Address [address] [place] [address] Care Team Providers Care Sweater Designer Name Role Phone Unavailable Primary Care Provider Unavailabl e Encounter Details Date Type Department Care Team (Late st Contact Info) Description 11/29/2018 Transcribed Document [facility] [place] Family Medicine [address] [place] [address] ProviderDarwin MD [address] [place] [address] Social History Tobacco Use Types Packs/Day Years Used Date Smoking Tobacco: Never Assessed Sex and Gender Information Value Date Recorded Sex Assigned at Male 10/27/2021 3:42 PM CDT Legal Sex Male 3:42 PM CDT Gender Identity Male 10/27/2021 3:42 PM CDT Sexual Orientation Not on file documented as of this encounter Miscellaneous Notes * [employer] Conversion Note - Historical ProviderMD - 11/29/2018 5:35 AM CDT Vital Measurements Entered On: 11/29/2018 5:35 EDT Performed On: 11/29/2018 5:35 EDT by Yoselin Vargas Rn Vital Measurements Temperature Source : Oral Temperature Mode : Fahrenheit Temperature, Fahrenheit : 98.5 Deg F Clinical Temperature, C : 36.9 Deg C Yoselin Vargas Rn - 11/29/2018 5:35 EDT Electronically signed by Marybeth [facility] Conversion Analytical Technician Ace at 08/17/2022 9:54 AM CDT documented in this encounter Plan of Treatment Not on file documented as of this encounter Visit Diagnoses Not on filedocumented in this encounter
--- OUTSIDE RECORDS SUMMARY | 2024-10-24 07:15 | XMS_ITS | Encounter Summary ---
Author Organization [employer] Address [address] [place] [address] Care Team Providers Care Staff Field Engineer Name Role Phone Unavailable Primary Care Provider Unavailabl e Encounter Details Date Type Department Care Team (Late st Contact Info) Description 12/04/2018 Transcribed Document [facility] [place] [facility] [place] [address] ProviderDarwin MD [address] [place] [address] Social History Tobacco Use Types [...] Conversion Note - Darwin ProviderMD - 12/04/2018 2:06 PM CDT Discharge Summary, PT Entered On: 12/04/2018 14:07 EDT Performed On: 12/04/2018 14:06 EDT by Gurpreet Bowser, Physical Therapist Discharge Summary Reason for Discharge : Discharged from hospital Discharged to, Therapy : Unit, rehabilitation Discharge Summary Comment, PT : Pt met 3/3 goals. He was perfoming sit to stand with SBA and gait 190ft with CGA with RWx. D/C to [facility]. Gurpreet Bowser, Physical Therapist - 12/04/2018 14:06 EDT Intermediate Goals Other PT LTG Grid Goal #1 [...] : 11/29/2018 EDT 11/29/2018 EDT 11/28/2018 EDT Gurpreet Bowser, Physical Therapist - 12/04/2018 14:06 EDT Gurpreet Bowser, Physical Therapist - 12/04/2018 14:06 EDT Gurpreet Bowser, Physical Therapist - 12/04/2018 14:06 EDT documented in this encounter Plan of Treatment Not on file documented as of this encounter Visit Diagnoses Not on filedocumented in this encounter
--- OUTSIDE RECORDS SUMMARY | 2024-10-24 07:15 | XMS_ITS | Referral Summary ---
Author Organization [employer] Address [address] [place] [address] Care Team Providers Care Gi Asst Name Role Phone Unavailable Primary Care Provider [...]
--- OUTSIDE RECORDS SUMMARY | 2024-10-24 07:15 | XMS_ITS | Encounter Summary ---
Author Organization [employer] Address [address] [place] [address] Care Team Providers Care Hourly Team Members Name Role Phone Unavailable Primary Care Provider Unavailabl e Encounter Details Date Type Department Care Team (Late st Contact Info) Description 11/29/2018 Transcribed Document [facility] [place] [address] [place] [address] ProviderDarwin MD [address] [place] [address] Social History Tobacco Use Types [...] Conversion Note - Darwin Obrien MD - 11/29/2018 2:47 PM CDT Patient Education Materials Follows: What to expect after the Procedure: After the procedure, it is common to have: ?? Pain and swelling. ?? A small amount of blood or clear fluid coming from your incision for up to 7 days ?? It is normal to have a moderate amount of bleeding from the site of the drain that was pulled on the morning after surgery. You can hold pressure on the area for 3-5 minutes and cover with a bandage as needed. Diet: ?? Resume usual diet ?? No alcoholic beverages while taking pain medication ?? Drink 8-10 glasses of water a day to prevent constipation from pain medication ?? Increase fiber to help prevent constipation. Straining can cause increased pressure and pain in your incision area ?? Increase protein to promote healing Driving: ?? Do not drive until your health care provider approves. Ask your health care provider when it is safe to drive if you have an immobilizer on your knee. ?? Do not drive or operate heavy machinery while taking prescription pain medicine. ?? Do not drive for 24 hours if you received a sedative. Activity: ?? Do not lift anything that is heavier than 10 lb (4.5 kg) until your health care provider approves. ?? No strenuous activity ?? Avoid high-impact activities, including running, jumping rope, and jumping jacks. ?? Avoid sitting for a long time without moving. Get up and move around at least every few hours. ?? Keep legs elevated while seated and place surgery leg on 2-3 pillows, this will decrease swelling ?? Continue using walker until cleared by physical therapy Bathing: ?? Do not take baths, swim, or use a hot tub for one month after surgery. ?? May shower on the third day after surgery by covering incision with Glad Brand Press and Seal saran wrap. After showering, dry off completely BEFORE removing saran wrap. ?? Use Press and Seal saran wrap to shower for one month after surgery ?? You must be seated to shower until you are no longer using the walker Other: ?? Use ice therapy for 20-30 minutes at a time and leave off for 20-30 minutes at a time. Always keep a towel or cloth between the ice pack and your skin ?? Continue to use Incentive Spirometer 10 times an hour while awake for one month to help prevent pneumonia Contact a health care provider if: ?? You have more redness, swelling, or pain around your incision. ?? You have more fluid or blood coming from your incision. ?? Your incision or drain site feels warm to the touch. ?? You have pus or a bad smell coming from your incision. ?? You have a fever. ?? Your incision breaks open after your health care provider removes your sutures, skin glue, or adhesive tape. ?? Your prosthesis feels loose. ?? You have knee pain that does not go away. DVT: Blood Clot Blood clots are a common risk after an orthopedic surgery Symptoms: ?? Swelling of your leg or arm, especially if one side is much worse. ?? Warmth and redness of your leg or arm, especially if one side is much worse. ?? Pain in your arm or leg. If the clot is in your leg, symptoms may be more noticeable or worse when you stand or walk. ?? A feeling of pins and needles, if the clot is in the arm. The symptoms of a DVT that has traveled to the lungs (pulmonary embolism, PE) usually start suddenly and include: ?? Shortness of breath while active or at rest. ?? Coughing or coughing up blood or blood-tinged mucus. ?? Chest pain that is often worse with deep breaths. ?? Rapid or irregular heartbeat. ?? Feeling light-headed or dizzy. ?? Fainting. ?? Feeling anxious. ?? Sweating. There may also be pain and swelling in a leg if that is where the blood clot started. How is this prevented? ?? Exercise regularly. For at least 30 minutes every day, engage in: -Activity that involves moving your arms and legs. -Activity that encourages good blood flow through your body by increasing your heart rate. ?? Exercise your arms and legs every hour during long-distance travel (over 4 hours). ?? Drink plenty of water and avoid drinking alcohol while traveling. ?? Avoid sitting or lying in bed for long periods of time without moving your legs. ?? Maintain a weight that is appropriate for your height. Ask your health care provider what weight is healthy for you. ?? If you are a woman who is over 35 years of age, avoid unnecessary use of medicines that contain estrogen. These include control pills. ?? Do not smoke, especially if you take estrogen medicines. If you need help quitting, ask your health care provider. ?? Wear compression stockings (if told by your health care provider) to help prevent blood clots from forming. High Fiber/High Protein Diet High fiber foods: To prevent constipation Grains Whole-grain breads. Multigrain cereal. Oats and oatmeal. Brown rice. Barley. Bulgur wheat. Millet. Bran muffins. Popcorn. [place] wafer crackers. Vegetables Sweet potatoes. Spinach. Kale. Artichokes. Cabbage. Broccoli. Green peas. Carrots. Squash. Fruits Berries. Pears. Apples. Oranges. Avocados. Prunes and raisins. Dried figs. Meats and Other Protein Sources [place], kidney, miranda, and soy beans. Split peas. Lentils. Nuts and seeds. Dairy Fiber-fortified yogurt. Beverages Fiber-fortified soy milk. Fiber-fortified orange juice. Other Fiber bars. High-protein foods: To promote healing High-protein foods contain 4 grams (4 g) or more of protein per serving. They include: ?? Beef, ground sirloin (cooked) - 3 oz have 24 g of protein. ?? Cheese (hard) - 1 oz has 7 g of protein. ?? Chicken breast, boneless and skinless (cooked) - 3 oz have 13.4 g of protein. ?? Cottage cheese - 1/2 cup has 13.4 g of protein. ?? Egg - 1 egg has 6 g of protein. ?? Fish, filet (cooked) - 1 oz has 6-7 g of protein. ?? Garbanzo beans (canned or cooked) - 1/2 cup has 6-7 g of protein. ?? Kidney beans (canned or cooked) - 1/2 cup has 6-7 g of protein. ?? Blue (cooked) - 3 oz has 24 g of protein. ?? Milk - 1 cup (8 oz) has 8 g of protein. ?? Nuts (peanuts, pistachios, almonds) - 1 oz has 6 g of protein. ?? Peanut butter - 1 oz has 7-8 g of protein. ?? Pork tenderloin (cooked) - 3 oz has 18.4 g of protein. ?? Pumpkin seeds - 1 oz has 8.5 g of protein. ?? Soybeans (roasted) - 1 oz has 8 g of protein. ?? Soybeans (cooked) - 1/2 cup has 11 g of protein. ?? Soy milk - 1 cup (8 oz) has 5-10 g of protein. ?? Soy or vegetable maisha - 1 maisha has 11 g of protein. ?? Fountain seeds - 1 oz has 5.5 g of protein. ?? Tofu (firm) - 1/2 cup has 20 g of protein. ?? Tuna (canned in water) - 3 oz has 20 g of protein. ?? Yogurt - 6 oz has 8 g of protein. Fall Prevention ?? Use night lights. ?? Install grab bars by the toilet and in the tub and shower. Do not use towel bars as grab bars. ?? Use non-skid mats or decals on the floor of the tub or shower. ?? If you need to sit down while you are in the shower, use a plastic, non-slip stool. ?? Keep the floor dry. Immediately clean up any water that spills on the floor. ?? Remove soap buildup in the tub or shower on a regular basis. ?? Remove throw rugs and other tripping hazards from the floor. ?? Place frequently used items in [id number] places ?? Keep electrical cables out of the way. ?? Do not leave any items on the stairs. ?? Make sure that there are handrails on both sides of the stairs. Fix handrails that are broken or loose. Make sure that handrails are as long as the stairways. ?? Check any carpeting to make sure that it is firmly attached to the stairs. Fix any carpet that is loose or worn. ?? Avoid having throw rugs at the top or bottom of stairways, or secure the rugs with carpet tape to prevent them from moving. ?? Wear closed-toe shoes that fit well and support your feet. Wear shoes that have rubber soles or low heels. ?? Use mobility aids as needed, such as canes, walkers, scooters, and crutches. ?? Turn on lights if it is dark. Replace any light bulbs that burn out. ?? Set up furniture so that there are clear paths. Keep the furniture in the same spot. ?? Be aware of any and all pets. ?? Review your medicines with your healthcare provider. Some medicines can cause dizziness or changes in blood pressure, which increase your risk of falling. Hand Washing You should wash your hands whenever you think they are dirty. You should also wash your hands: ??? After: ?? Working or playing outside. ?? Touching an animal or its toys or leash. ?? Handling livestock. ?? Using the bathroom. ?? Using household configuration management consultant or toxic chemicals. ?? Touching or taking out the garbage. ?? Touching anything dirty around your home. ?? Handling soiled clothes or rags. ?? Taking care of a sick child. This includes touching used tissues, toys, and clothes. ?? Sneezing, coughing, or blowing your nose. ?? Using public transportation. ?? Shaking hands. ?? Using a phone, including your mobile phone. ?? Touching money. ??? Before and after: ?? Preparing food. ?? Feeding a baby or young child. ?? Eating. ?? Visiting or taking care of someone who is sick. ?? Changing a diaper. ?? Changing a bandage (dressing) or taking care of an injury or wound. ?? Giving or taking medicine. If soap and [...] 4. Repeat the process for each step. ?? Always keep both feet within the width of the walker's legs or wheels. ?? When using your walker, you should not feel like you need to lean forward or to the side to keep your hands on the handgrips. ?? Make sure you are following any weight-bearing instructions that your health care provider has given you. ?? Be careful not to let the walker get too far ahead of you as you walk. ?? If your walker does not glide well [...] 5. Step down with your stronger leg. Electronically signed by Vicente Rueda Conversion Coding Specialist Home Health Cerner at 08/17/2022 10:01 AM CDT documented in this encounter Plan of Treatment Not on file documented as of this encounter Visit Diagnoses Not on filedocumented in this encounter
--- OUTSIDE RECORDS SUMMARY | 2024-10-24 07:15 | XMS_ITS | Encounter Summary ---
Author Organization [employer] Address [address] [place] [address] Care Team Providers Care Track Dresser Name Role Phone Unavailable Primary Care Provider Unavailabl e Encounter Details Date Type Department Care Team (Late st Contact Info) Description 11/26/2018 Transcribed Document [facility] [place] Family Medicine [facility] [place] [address] ProviderDarwin MD [address] [place] [address] Social History Tobacco Use Types [...] Note - Darwin Obrien MD - 11/26/2018 10:45 AM CDT Patient: CLAUDINE GARAY Age: 78 years Sex: Male : 1940 Associated Diagnoses: Fracture of femoral neck, left, closed; Hypertension Author: JEFF MCNEIL MD Basic Information Time seen: Date & time 11/26/2018 10:45:00, Voice recognition / install and repair technician technology used for some documentation in this chart in attempt to mitigate substantial inefficiencies created by this electronic health record technology. As a result, there may be some typos and/or non-sensical language introduced into the chart that either are overlooked in editing/review and/or that I am unable to correct as patient care needs require me to prioritize my attention to bedside patient care rather than electronic documentation.. . History source: Patient, daughter. Arrival mode: Private vehicle, wheelchair. History limitation: None. Additional information: Chief Complaint from Nursing Triage Note : Chief Complaint 11/26/2018 10:42 EDT Chief Complaint C/o Increase in l hip pain x 1 week, unable to bear weight, negative Xrays 5 weeks ago . History of Present Illness Mr. Garay, presents via POV and wheelchair to room #3, with daughter and in attendance. He reportedly has been having some discomfort in the left hip and thigh region. This started approximately 5 weeks ago and went into a local walk-in clinic . Apparently they had some x-rays done at that time that were unremarkable. He was prescribed physical therapy for IT band tightness and did rather well with tremendous improvement in his symptoms. He started having discomfort in the left hip extending down the lateral aspect of his right into his knee about a week ago. The went back to the walk-in clinic and stated that he may have an occult fracture of his hip and scheduled to have a evaluation by a [facility] orthopedists a few weeks down the road. He states that he is no longer able to weight-bear because of the severity of the pain. He denies any swelling or discoloration of his leg. He is not having any abdominal pain or back pain. The pain is worse when he attempts to weight-bear or touch the hip area. He denies any recent trauma. He reportedly has been on Dilantin for many years and has had osteoporosis related to that and has had fractures in the past. The patient presents with left, hip pain. The onset was 5 weeks ago. The course/duration of symptoms is constant. Type of injury: none. Location: Left hip thigh. The character of symptoms is pain. The degree at onset was moderate. The degree at present is severe. There are exacerbating factors including movement, standing and walking. The relieving factor is immobilization. Risk factors consist of hypertension, osteoporosis, obesity, age, not diabetes mellitus, not coronary artery disease, not immobility, not pulmonary embolism, not deep vein thrombosis, not anticoagulated, not smoking, not immunocompromised patient and not recent surgery. Therapy today: none. Associated symptoms: none. Additional history: See note above.. Review of Systems Constitutional symptoms: No fever, no chills, no weakness, no fatigue, no decreased activity. Skin symptoms: No jaundice, no rash, no pruritus, no abrasions, no petechiae. Eye symptoms: Vision unchanged. ENMT symptoms: No sore throat, no nasal congestion. Respiratory symptoms: No shortness of breath, no orthopnea, no cough. Cardiovascular symptoms: No chest pain, no palpitations. Gastrointestinal symptoms: No abdominal pain, no nausea, no vomiting, no diarrhea, no constipation, no rectal bleeding. Genitourinary symptoms: No dysuria, no hematuria, no discharge, no testicular pain. Musculoskeletal symptoms: Muscle pain, Joint pain, No back pain, Neurologic symptoms: No headache, no dizziness, no altered level of consciousness, no numbness, no tingling, no weakness. Psychiatric symptoms: No anxiety, no depression. Endocrine symptoms: No polyuria, no polydipsia. Hematologic/Lymphatic symptoms: Bleeding tendency negative, bruising tendency negative, no petechiae. Allergy/immunologic symptoms: No recurrent infections, no impaired immunity. Health Status Allergies: Allergic Reactions (Selected) No Known Medication Allergies. Medications: (Selected) Documented Medications Documented CeleBREX: Oral, 0 Refill(s) Dilantin 100 mg oral capsule, extended release: Cap, Oral, At Bedtime, 0 Refill(s) Lipitor 40 mg oral tablet: Tab, Oral, Daily, 0 Refill(s) PHENobarbital: 0 Refill(s) aspirin 81 mg oral delayed release tablet: 1 Tab, Oral, Daily, 30 Tab, 0 Refill(s) pantoprazole 40 mg oral delayed release tablet: 1 Tab, Oral, Daily, 30 Tab, 0 Refill(s). Immunizations: Unknown. Past Medical/ Family/ Social History Medical history Cardiovascular: hyperlipidemia. Neurological: seizure long standing. Musculoskeletal: osteoarthritis, osteoporosis. Surgical history: Appendectomy ([id number]). knee arthroscopy bilateral. left hand. bilateral cataract with lens implant.. Family history: Reviewed as documented in chart. Social history: Social & Psychosocial Habits Alcohol 02/07/2018 Alcohol Use History, Social Habits No Substance Abuse 02/07/2018 Recreational Drug Use History No Recreational Drug Use Last 12 Months No Tobacco 02/07/2018 Smoking Status Never (less than 100 in l . Physical Examination Vital Signs Vital Signs/Vital Measures 11/26/2018 10:42 EDT Systolic Blood Pressure 153 mmHg HI Diastolic Blood Pressure 78 mmHg Temperature Source Tympanic Temperature Mode Fahrenheit Peripheral Pulse Rate 71 bpm Respiratory Rate 18 Breaths/Min Oxygen Saturation 98 % . Measurements 11/26/2018 10:42 EDT Height Source Stated Height Entry Format [place] Height/Length, AUSTRIAN (ft) 5 ft Height/Length AUSTRIAN 7 Inch CLINICALHEIGHT 170.18 cm [place] Body Weight 65.16 kg Weight Source, ED Critical estimated dosing weight Weight Entry Format [place] Weight Sami lb 197 lb CLINICALWEIGHT 89.55 kg Body Surface Area (BSA) 2.01 m2 Body Mass Index 30.9 kg/m2 HI . Oxygen Saturation 11/26/2018 10:42 EDT Oxygen Saturation 98 % . General: Alert, no acute distress, well nourished, calm, cooperative, well hydrated. Skin: Warm, dry, pink, intact, no pallor, no rash. Head: Normocephalic, atraumatic. Eye Cardiovascular: Regular rate and rhythm, No murmur, Normal peripheral perfusion, No edema. Respiratory: Lungs are clear to auscultation, respirations are non-labored, breath sounds are equal, Symmetrical chest wall expansion. Chest wall: No tenderness, No deformity. Back: Nontender, Normal range of motion. Musculoskeletal: Normal ROM, normal strength, no tenderness, no swelling, Lower extremity: Left, hip, thigh, knee, aligned, tenderness, . Gastrointestinal: Soft, Nontender, Non distended, Normal bowel sounds, No organomegaly, Obese. Genitourinary: Exam deferred. Neurological: Alert and oriented to person, place, time, and situation, No focal neurological deficit observed. Lymphatics: No lymphadenopathy. Psychiatric: Cooperative, appropriate mood & affect. Medical Decision Making Differential Diagnosis: Hip fracture, hip contusion, hip sprain, hip dislocation, pelvic fracture, hip strain, tendonitis, bursitis, arthritis. Documents reviewed: Emergency department nurses' notes, emergency department records, prior records. 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 Results review: Lab results : Lab Results 11/26/2018 12:10 EDT Urine Color Yellow Urine Appearance Clear Urine Specific [place] 1.008 Urine pH Dipstick 7.0 Urine Leukocyte Esterase Negative Urine Nitrite Negative Urine Protein Dipstick Negative Urine Glucose Dipstick Negative Urine Ketones Dipstick Negative Urine Urobilinogen Dipstick 0.2 EU/dL Urine Bilirubin Dipstick Negative mg/dL Urine Blood Dipstick Negative . Radiology results: Radiology Results (Last 48 hours) [id number] -- 11/26/2018 10:38 CT Hip LT WO (11/26/2018 11:49) Result: CT LEFT HIP WITHOUT CONTRASTHISTORY: Fall, hip painTECHNIQUE: Thin section axial images through the left hip were performedwithout contrast. Coronal and sagittal reformatted images were performedand reviewed. This study was performed with techniques to keep radiationdoses as low as reasonably achievable, (ALARA). Automatic exposurecontrol was utilized for radiation dose reduction.FINDINGS: The urinary bladder is mildly distended. Aortoiliac vascularcalcifications are noted. There is moderate stool in the right colon.There are degenerative changes of the lumbar spine. There is vacuum discphenomenon at L5-S1. There is grade 1 anterolisthesis of L5 on S1. Thereis diffuse osteopenia. The sacrum appears intact. The ischium and pubicrami are normal. The left hip is located within the acetabulum. There isnarrowing of the joint space. There is a nondisplaced fracture in themid left femoral neck. The remaining femur is intact.IMPRESSION: Nondisplaced fracture through the mid left femoral neck. . Impression and Plan Diagnosis Fracture of femoral neck, left, closed - Discharge, Emergency medicine, Medical Hypertension - Discharge, Emergency medicine, Medical Calls-Consults - 11/26/2018 12:20:00 , BRIDGETTE MEJIAS MD-ORT, Orthopedics, phone call, recommends Nothing by mouth and she will attempt to operate later this evening.. - 11/26/2018 12:23:00 , MELANIE SANDOVAL MD-INT, Internal medicine, phone call, recommends Admit to bone and joint for admission. Plan Condition: Stable. Counseled: Patient, Family, Regarding diagnosis, Regarding diagnostic results, Regarding treatment plan, Patient indicated understanding of instructions. documented in this encounter Plan of Treatment Not on file documented as of this encounter Visit Diagnoses Not on filedocumented in this encounter
--- OUTSIDE RECORDS SUMMARY | 2024-10-24 07:16 | XMS_ITS | Encounter Summary ---
Author Organization [employer] Address [address] [place] [address] Care Team Providers Care Glass Laminating Operator Name Role Phone Unavailable Primary Care Provider Unavailabl e Encounter Details Date Type Department Care Team (Late st Contact Info) Description 11/28/2018 Transcribed Document [facility] [place] Family Medicine [address] [place] [address] ProviderDarwin MD [address] [place] [address] Social History Tobacco Use Types Packs/Day Years Used Date Smoking Tobacco: Never Assessed Sex and Gender Information Value Date Recorded Sex Assigned at Male 10/27/2021 3:42 PM CDT Legal Sex Male 3:42 PM CDT Gender Identity Male 10/27/2021 3:42 PM CDT Sexual Orientation Not on file documented as of this encounter Miscellaneous Notes * [employer]ner Conversion Note - Darwin ProviderMD - 11/28/2018 5:36 PM CDT Patient: CLAUDINE FUENTES Age: 78 years Sex: Male : 1940 Associated Diagnoses: Left Hip pain-swelling; Fracture of femoral neck, left, closed; Hypertension; Hyperlipidemia with low HDL; Seizure disorder; Hyponatremia Author: MELANIE SANDOVAL MD-INT Basic Information awake alert comfortable, asympt. , pain under control, no trouble w. urination. ???Slow progressive improvement, ???Participating with PT/OT ???Pending insurance approval for rehabilitation Review of Systems Constitutional: No fever, No chills. Eye: No discharge, No blurring, No double vision, No visual disturbances. Ear/Nose/Mouth/Throat: No nasal congestion, No sore throat. Respiratory: No shortness of breath, No cough. Cardiovascular: No chest pain, No palpitations. Gastrointestinal: No nausea, No vomiting. Genitourinary: No change in urine stream. Musculoskeletal: Negative. Integumentary: wound stable covered w. clean dressing. Neurologic: Alert and oriented X4. Health Status Allergies: Allergies (1) Active Reaction [...] Seizure disorder Physical Examination VS/Measurements Vital Measurements 11/28/2018 10:00 EDT Systolic Blood Pressure 115 mmHg Diastolic Blood Pressure 68 mmHg Mean Arterial Pressure (MAP)-BMDI 80 Temperature Source Oral Temperature Mode Fahrenheit Temperature, Fahrenheit 99.4 Deg F Clinical Temperature, C 37.4 Deg C Heart Rate Monitored 97 bpm Respiratory Rate 15 Breaths/Min Oxygen Saturation 94 % Oxygen Therapy Mode Room air 11/28/2018 7:00 EDT Systolic Blood Pressure 148 mmHg HI Diastolic Blood Pressure 75 mmHg Temperature, Fahrenheit 99 Deg F Heart Rate Monitored 82 bpm Oxygen Saturation 94 % Oxygen Therapy Mode Room air 11/28/2018 6:30 EDT Systolic Blood Pressure 148 mmHg HI Diastolic Blood Pressure 75 mmHg Mean Arterial Pressure (MAP)-BMDI 92 Temperature Source Oral Temperature Mode Fahrenheit Temperature, Fahrenheit 99.0 Deg F Clinical Temperature, C 37.2 Deg C Heart Rate Monitored 81 bpm Respiratory Rate 16 Breaths/Min Oxygen Saturation 94 % Oxygen Therapy Mode Room air General: [...] Review / Management Results review: All Results 11/28/2018 3:22 EDT Sodium Level 133 mmol/L LOW Potassium Level 4.8 mmol/L Chloride Level 101 mmol/L LOW Carbon Dioxide Level 26 mmol/L Anion Gap 11 Glucose Level 102 mg/dL Blood Urea Nitrogen 17 mg/dL Creatinine Level 0.98 mg/dL eGFR >60 mL/min/1.73m2 eGFR NonAfrican >60 mL/min/1.73m2 Bun/Creatinine 17.3 Calcium Level 8.0 mg/dL LOW 11/27/2018 2:52 EDT Sodium Level 132 mmol/L LOW Potassium Level 4.2 mmol/L Chloride Level 99 mmol/L LOW Carbon Dioxide Level 26 mmol/L Anion Gap 11 Glucose Level 110 mg/dL HI Blood Urea Nitrogen 16 mg/dL Creatinine Level 0.95 mg/dL eGFR >60 mL/min/1.73m2 eGFR NonAfrican >60 mL/min/1.73m2 Bun/Creatinine 16.8 Calcium Level 8.3 mg/dL LOW Protein Total 6.3 Gram/dL LOW Albumin Level 3.0 Gram/dL LOW Globulin 3.3 Gram/dL A/G Ratio 0.9 LOW Bilirubin Total 0.3 mg/dL Alk Phos 120 Units/Liter AST 20 Units/Liter ALT 34 Units/Liter WBC 13.4 K/uL HI RBC 4.21 Million/uL LOW Hgb 12.5 Gram/dL LOW Hct 38.2 % LOW MCV 90.7 fL MCH 29.7 pg MCHC 32.7 Gram/dL Platelet Count 243 K/uL MPV 9.5 fL RDW 15.5 % HI Neut % 78.4 % HI Neut # 10.49 K/uL HI Lymph % 12.5 % LOW Lymph # 1.68 K/uL [place] % 8.1 % [place] # 1.08 K/uL HI Eos % 0.4 % LOW Eos # 0.05 K/uL Baso % 0.1 % Baso # 0.02 K/uL Slide Review No IG# 0 x10(3)/uL IG% 0 % . Condition: Stable. Impression and Plan Diagnosis Complaint of Left Hip pain-swelling - Reason For Visit, Emergency medicine, Medical. Fracture of femoral neck, left, closed - Admitting, Emergency medicine, Medical. Hypertension - Admitting, Emergency medicine, Medical. Hyperlipidemia with low HDL - Admitting, Medical. Seizure disorder - Admitting, Medical. Hyponatremia - Admitting, Medical. Course: Plan/ cont. current care, pt/ot, encourage oral fluid intake, nutritional support, encourage use of respirometer, motoring blood pressure, renal function, blood glucose, and urine output. pain control, DVT prophylaxis, close monitoring fluid and electrolytes, when necessary nebs, for risk precautions, sleep apnea precautions, stress ulcer prophylaxis. for rehabilitation in a.m. if stable. documented in this encounter Plan of Treatment Not on file documented as of this encounter Visit Diagnoses Not on filedocumented in this encounter
--- OUTSIDE RECORDS SUMMARY | 2024-10-24 07:16 | XMS_ITS | Encounter Summary ---
Author Organization [email or web address] Address [address] [place] [address] Care Team Providers Care Provider Contracting Consultant Name Role Phone Unavailable Primary Care Provider Unavailabl e Encounter Details Date Type Department Care Team (Late st Contact Info) Description 11/27/2018 Transcribed Document [facility] [place] [address] [place] [address] ProviderDarwin MD [address] [place] [address] Social History Tobacco Use Types [...] Conversion Note - Darwin Obrien MD - 11/27/2018 4:05 PM CDT UM Authorization Entered On: 11/27/2018 16:06 EDT Performed On: 11/27/2018 16:05 EDT by VANDANA CRUZ RN-Utilization Review Primary Insurance Authorization Authorization and Policy Numbers : Insurance 1 Health Plan: [employer] Policy Number: [id number] Authorization Number: [id number] Insurance Primary Name : [facility] Medicare Authorization Status-Primary : Admit approved Reference Number-Primary : [id number] Number of Days Authorized-Primary : 2 Authorized Service Begin Date-Primary : 11/26/2018 EDT Authorized Service End Date-Primary : 11/27/2018 EDT Authorization Comments-Primary : [facility] approved per fax back -- nrd 11/28 Historical Authorization Comments-Primary : Comment 1: Uploaded clinicals to [facility] Medicare via [employer]. (DEWEY, JONY, RN-Utilization Review 11/27/2018 09:20) VANDANA CRUZ RN-Utilization Review - 11/27/2018 16:05 EDT documented in this encounter Plan of Treatment Not on file documented as of this encounter Visit Diagnoses Not on filedocumented in this encounter
--- OUTSIDE RECORDS SUMMARY | 2024-10-24 07:16 | XMS_ITS | Encounter Summary ---
Author Organization [employer] Address [address] [place] [address] Care Team Providers Care Second Steward Name Role Phone Unavailable Primary Care Provider Unavailabl e Encounter Details Date Type Department Care Team (Late st Contact Info) Description 11/26/2018 Transcribed Document [facility] [place] Family Medicine [address] [place] [address] ProviderDarwin MD [address] [place] [address] Social History Tobacco Use Types [...] Conversion Note - Historical ProviderMD - 11/26/2018 5:00 PM CDT Chart Check - Review Order Profile Entered On: 11/26/2018 18:20 EDT Performed On: 11/26/2018 17:00 EDT by MARTI LIM RN Chart Check Powerplans Initiated/Discontinued as Appropriate : Yes All Active Orders Reviewed : Yes MARTI LIM, JAIRON - 11/26/2018 18:20 EDT Electronically signed by Marybeth thang Conversion Thermit Welding Machine Operator [employer] at 08/17/2022 10:10 AM CDT documented in this encounter Plan of Treatment Not on file documented as of this encounter Visit Diagnoses Not on filedocumented in this encounter
--- OUTSIDE RECORDS SUMMARY | 2024-10-24 07:16 | XMS_ITS | Encounter Summary ---
Author Organization [employer] Address [address] [place] [address] Care Team Providers Care Catalyst Concentration Operator Name Role Phone Unavailable Primary Care Provider Unavailabl e Encounter Details Date Type Department Care Team (Late st Contact Info) Description 11/27/2018 Transcribed Document [facility] [place] Family Medicine [address] [place] [address] ProviderDarwin MD [address] [place] [address] Social History Tobacco Use Types Packs/Day Years Used Date Smoking Tobacco: Never Assessed Sex and Gender Information Value Date Recorded Sex Assigned at Male 10/27/2021 3:42 PM CDT Legal Sex Male 3:42 PM CDT Gender Identity Male 10/27/2021 3:42 PM CDT Sexual Orientation Not on file documented as of this encounter Miscellaneous Notes * [employer]ner Conversion Note - Historical ProviderMD - 11/27/2018 5:00 AM CDT Chart Check - Review Order Profile Entered On: 11/27/2018 6:42 EDT Performed On: 11/27/2018 5:00 EDT by Cris Goodman RN Chart Check Powerplans Initiated/Discontinued as Appropriate : Yes All Active Orders Reviewed : Yes Cris Goodman RN - 11/27/2018 6:42 EDT documented in this encounter Plan of Treatment Not on file documented as of this encounter Visit Diagnoses Not on filedocumented in this encounter
--- OUTSIDE RECORDS SUMMARY | 2024-10-24 07:16 | XMS_ITS | Encounter Summary ---
Author Organization [employer] Address [address] [place] [address] Care Team Providers Care Investment Banking Analyst Name Role Phone Unavailable Primary Care Provider Unavailabl e Encounter Details Date Type Department Care Team (Late st Contact Info) Description 11/26/2018 Transcribed Document [facility] [place] [address] [place] [address] ProviderDarwin MD [address] [place] [address] Social History Tobacco Use Types [...] Conversion Note - Darwin ProviderMD - 11/26/2018 7:23 PM CDT Patient: CLAUDINE GARAY Age: 78 years Sex: Male : 1940 Associated Diagnoses: Left Hip pain-swelling; Fracture of femoral neck, left, closed; Hypertension; Hyperlipidemia with low HDL; Seizure disorder; Hyponatremia Author: MELANIE SANDOVAL MD-INT 78 years old white male with a history of HTN, HLP, seizure disorder on Dilantin and phenobarbital has been complaining of left hip pain for about 6 weeks ago and he was seen at local hospital where x-ray revealed to his left hip revealed no evidence of fracture and started on physical therapy and his pain never got any better and by 2 days ago patient was unable to bear weight on his left lower extremity so he decided to come to [facility] ED where x-ray revealed nondisplaced left hip fracture. Patient denies any history of fall or bumping to a hard object but there is a mentioned above, he is On Dilantin for over [address] Juárez, from [facility] orthopedics, was notified, and patient was taken to the OR and underwent ORIF of the fracture. Postoperative Information Patient had surgery today and is recovering well. patient is awake, alert, cooperative, responsive, and is under no acute distress. Currently Patient is on pain medication as recommended by Patient's pain is well controlled. Patient is on DVT prophylaxis and also on scheduled bowel regimen. Urine out-put is adequate. PT/OT onboard. Review of Systems Constitutional: No fever, No chills. Eye: No visual disturbances. Ear/Nose/Mouth/Throat: No nasal congestion, No sore throat. Respiratory: No shortness of breath, No cough. Cardiovascular: No chest pain, No tachycardia. Gastrointestinal: No nausea, No vomiting, No abdominal pain. Genitourinary: No change in urine stream. Hematology/Lymphatics: No bleeding tendency. Endocrine: No polyuria, No cold intolerance, No heat intolerance. Immunologic: Negative. Musculoskeletal: Negative. Integumentary: wound stable covered w. clean dressing. Neurologic: No confusion, No numbness, No tingling, No headache. Psychiatric: No anxiety, No depression. All other systems are negative Health Status Allergies: Allergies (1) Active Reaction No Known Medication Allergies None Documented Current medications: Home Medications (6) Active aspirin 81 mg oral delayed release tablet 81 mg = 1 Tab, Oral, Daily CeleBREX , Oral Dilantin 100 mg oral capsule, extended release 200 mg = 2 Cap, Oral, At Bedtime Lipitor 40 mg oral tablet 40 mg = 1 Tab, Oral, Daily pantoprazole 40 mg oral delayed release tablet 40 mg = 1 Tab, Oral, BIDAC PHENobarbital 64.8 mg oral tablet 129.6 mg = 2 Tab, Oral, BID , Medications (33) Active Scheduled: (6) aspirin 325 mg tab 325 mg 1 Tab, Oral, Daily atorvastatin 20 mg tab 40 mg 2 Tab, Oral, At Bedtime docusate sodium 100 mg cap 100 mg 1 Cap, Oral, BID pantoprazole EC 40 mg tab 40 mg 1 Tab, Oral, Daily PHENobarbital 64.8 mg tab 129.6 mg 2 Tab, Oral, BID phenytoin sod ext 100 mg cap 200 mg 2 Cap, Oral, At Bedtime Continuous: (1) NaCl 0.45% 1,000 mL 1,000 mL, IntraVENous, 100 mL/Hr PRN: (26) acetaminophen 325 mg tab 650 mg 2 Tab, Oral, Q4H acetaminophen/HYDROcodone 325/5 mg tab 1 Tab, Oral, Q4H acetaminophen/HYDROcodone 325/5 mg tab 2 Tab, Oral, Q4H ALPRAZolam 0.25 mg [...] 0.1 mg 1 Tab, Oral, Q4H HYDROmorphone 0.5 mg/0.5 mL inj 0.5 mg 0.5 mL, IV Push, Q2H magnesium hydroxide 8% liq 30 mL 30 mL, Oral, Daily magnesium sulfate 2 Gram 50 mL, IV Piggyback, Daily magnesium sulfate 2 Gram 50 mL, IV Piggyback, Q2H metoclopramide 10 mg/2 mL inj 5 mg 1 mL, IV Push, Q6H ondansetron 4 mg/2 mL inj 4 mg 2 mL, IV Push, Q4H ondansetron 4 mg/2 mL inj 4 mg 2 mL, IV Push, Q4H potassium chloride 10 mEq 50 mL, [...] 15 mMole 5 mL, IV Piggyback, Q6H temazepam 15 mg cap 15 mg 1 Cap, Oral, At Bedtime traZODone 50 mg tab 50 mg 1 Tab, Oral, At Bedtime Problem list: Active Problems (4) Arthritis At risk for sleep apnea Hyperlipidemia with low HDL Seizure disorder Histories Family History: Family history significant for DM, HTN and cancer Procedure history: Appendectomy ([id number]). knee arthroscopy bilateral. left hand. bilateral cataract with lens implant. Social History Patient is and has 2 children that is no history of smoking or drinking alcohol. Physical Examination VS/Measurements Vital Signs/Vital Measures 11/26/2018 17:46 EDT Systolic Blood Pressure 137 mmHg Diastolic Blood Pressure 78 mmHg Temperature Source Oral Temperature Mode Fahrenheit Temperature, Fahrenheit 97.4 Deg F Heart Rate Monitored 65 bpm Respiratory Rate 16 Breaths/Min Oxygen Saturation 98 % Oxygen Therapy Mode Nasal cannula Oxygen Flow Rate 2 Liter/Min 11/26/2018 17:10 EDT Systolic Blood Pressure 153 mmHg HI Diastolic Blood Pressure 80 mmHg Mean Arterial Pressure (MAP)-BMDI 100 Temperature Source Temporal artery scanning Temperature Mode Fahrenheit Temperature, Fahrenheit 97.6 Deg F Clinical Temperature, C 36.4 Deg C Heart Rate Monitored 76 bpm Respiratory Rate 20 Breaths/Min Oxygen Saturation 93 % LOW Oxygen Therapy Mode Nasal cannula Oxygen Flow Rate 2 Liter/Min 11/26/2018 16:55 EDT Systolic Blood Pressure 128 mmHg Diastolic Blood Pressure 70 mmHg Mean Arterial Pressure (MAP)-BMDI 92 Heart Rate Monitored 76 bpm Respiratory Rate 20 Breaths/Min Oxygen Saturation 93 % LOW Oxygen Therapy Mode Nasal cannula Oxygen Flow Rate 2 Liter/Min 11/26/2018 16:50 EDT Systolic Blood Pressure 120 mmHg Diastolic Blood Pressure 69 mmHg Mean Arterial Pressure (MAP)-BMDI 87 Heart Rate Monitored 84 bpm Respiratory Rate 20 Breaths/Min Oxygen Saturation 94 % Oxygen Therapy Mode Nasal cannula Oxygen Flow Rate 3 Liter/Min 11/26/2018 16:45 EDT Systolic Blood Pressure 122 mmHg Diastolic Blood Pressure 65 mmHg Mean Arterial Pressure (MAP)-BMDI 82 Heart Rate Monitored 78 bpm Respiratory Rate 18 Breaths/Min Oxygen Saturation 93 % LOW Oxygen Therapy Mode Nasal cannula Oxygen Flow Rate 3 Liter/Min 11/26/2018 16:41 EDT Systolic Blood Pressure 129 mmHg Diastolic Blood Pressure 69 mmHg Mean Arterial Pressure (MAP)-BMDI 91 Temperature Source Temporal artery scanning Temperature Mode Fahrenheit Temperature, Fahrenheit 98.1 Deg F Clinical Temperature, C 36.7 Deg C Heart Rate Monitored 74 bpm Respiratory Rate 20 Breaths/Min Oxygen Saturation 94 % Oxygen Therapy Mode Nasal cannula Oxygen Flow Rate 3 Liter/Min 11/26/2018 14:08 EDT Systolic Blood Pressure 175 mmHg HI Diastolic Blood Pressure 84 mmHg Temperature Source Oral Temperature Mode Fahrenheit Temperature, Fahrenheit 98.4 Deg F Peripheral Pulse Rate 67 bpm Respiratory Rate 18 Breaths/Min Oxygen Saturation 96 % Oxygen Therapy Mode Room air 11/26/2018 10:42 EDT Systolic Blood Pressure 153 mmHg HI Diastolic Blood Pressure 78 mmHg Temperature Source Tympanic Temperature Mode Fahrenheit Peripheral Pulse Rate 71 bpm Respiratory Rate 18 Breaths/Min Oxygen Saturation 98 % General: Alert and oriented, No acute distress. Eye: Pupils are equal, round and reactive to light, Normal conjunctiva, Vision unchanged. HENT: Normocephalic, Tympanic membranes are clear, Normal hearing, Oral mucosa is moist, No pharyngeal erythema, No sinus tenderness. Neck: Supple, Non-tender, No carotid bruit, No jugular venous distention, No lymphadenopathy, No thyromegaly. Respiratory: Lungs are clear to auscultation, Respirations are non-labored, Breath sounds are equal, Symmetrical chest wall expansion, No chest wall tenderness. Cardiovascular: Normal rate, Regular rhythm, No murmur, No gallop, Good pulses equal in all extremities, Normal peripheral perfusion, No edema. Gastrointestinal: Soft, Non-tender, Non-distended, Normal bowel sounds, No organomegaly. Genitourinary: No costovertebral angle tenderness, No inguinal tenderness, No urethral discharge, No lesions. Lymphatics: No lymphadenopathy neck, axilla, groin. Musculoskeletal: Left hip pain. Integumentary: Warm, [place], Intact, No pallor, No rash, WOUND STABLE. Neurologic: Alert, Oriented, Normal sensory, Normal motor function, No focal deficits, Cranial Nerves II-XII are grossly intact, Normal deep tendon reflexes. Psychiatric: Cooperative, Appropriate mood & affect, Normal judgment, Non-suicidal. Review / Management Results review: Lab results 11/26/2018 12:10 EDT Sodium Level 133 mmol/L LOW Potassium Level 4.2 mmol/L Chloride Level 100 mmol/L LOW Carbon Dioxide Level 27 mmol/L Anion Gap 10 Glucose Level 77 mg/dL Blood Urea Nitrogen 17 mg/dL CREATININE 0.98 mg/dL eGFR >60 mL/min/1.73m2 eGFR NonAfrican >60 mL/min/1.73m2 Bun/Creatinine 17.3 Calcium Level 8.7 mg/dL WBC 9.0 K/uL RBC 4.72 Million/uL Hgb 13.8 Gram/dL Hct 41.4 % MCV 87.7 fL MCH 29.2 pg MCHC 33.3 Gram/dL Platelet Count 268 K/uL MPV 9.6 fL RDW 15.2 % HI Slide Review No PT 10.2 Second(s) INR 1.0 PTT 25.4 Second(s) Urine Type. U CleanCatch Urine Color Yellow Urine Appearance Clear Urine Specific [place] 1.008 Urine pH Dipstick 7.0 Urine Leukocyte Esterase Negative Urine Nitrite Negative Urine Protein Dipstick Negative Urine Glucose Dipstick Negative Urine Ketones Dipstick Negative Urine Urobilinogen Dipstick 0.2 EU/dL Urine Bilirubin Dipstick Negative mg/dL Urine Blood Dipstick Negative Ur RBC None Seen Ur WBC None Seen Ur Bacteria Trace Ur Epithelial Cells 0-2 /HPF . Radiology Results (Last 48 hours) [id number] -- 11/26/2018 12:26 CT Hip LT WO (11/26/2018 11:49) Result: [...] fracture through the mid left femoral neck. Impression and Plan Diagnosis Complaint of Left Hip pain-swelling - Reason For Visit, Emergency medicine, Medical. Fracture of femoral neck, left, closed - Admitting, Emergency medicine, Medical. Hypertension - Admitting, Emergency medicine, Medical. Hyperlipidemia with low HDL - Admitting, Medical. Seizure disorder - Admitting, Medical. Hyponatremia - Admitting, Medical. Course: Plan/Respirex @ BS and encourage patient to use. Sleep apnea precautions if needed. C-pap at night if needed. Hold all BP meds if BSP < 130 MMHg. If SBP < 90 mmHg, you may give 500 ml NS IVF over one hour. ACT: CONSULT PT/OT as per Dr. ji rec. For urinary retention use bladder scanner, you may anchor FC. If no or low UOP you may give 250 mL NS IV over one hour. AM Labs BMP & Hgb/HCT. If pt. spikes fever > 101* F, encourage pt to use Respirex first, then you may give Tylenol 650 mg PO/DE x 1. If no response in 2 hours, you may get blood cx. x2, chest x-ray, sputum CX, S, gram stain x3, UA, C&S. Patient may have chloroseptic spray or throat lozenges for soar throat. DVT prophylaxis. If at any time the HGB is less than 8 type and cross then transfuse 2 units of PRBCs. Premedicate with Tylenol 650 mg PO and Benadryl 25mg PO. Electrolytes Replacement Protocol. -Pain control -DVT prophylaxis -Close monitoring fluid and electrolytes -When necessary nebs -Fall risk precautions -Sleep apnea precautions -Stress ulcer prophylaxis. Electronically signed by Vicente Rueda Conversion Biomedical Engineering Supervisor Cerner at 08/17/2022 9:43 AM CDT documented in this encounter Plan of Treatment Not on file documented as of this encounter Visit Diagnoses Not on filedocumented in this encounter
--- OUTSIDE RECORDS SUMMARY | 2024-10-24 07:16 | XMS_ITS | Encounter Summary ---
Author Organization [employer] Address [address] [place] [address] Care Team Providers Care Spindle Repairer Name Role Phone Unavailable Primary Care Provider Unavailabl e Encounter Details Date Type Department Care Team (Late st Contact Info) Description 11/28/2018 Transcribed Document [facility] [place] [address] [place] [address] ProviderDarwin MD [address] [place] [address] Social History Tobacco Use Types [...] Conversion Note - Darwin ProviderMD - 11/28/2018 8:55 PM CDT Spiritual Care Short Form Entered On: 11/28/2018 22:43 EDT Performed On: 11/28/2018 20:55 EDT by YOHANA DEL TORO Chaplain-Non Cert General Information, Spiritual Care Spiritual Care Referred by : Oil And Gas Specialist initiated Reason for Visit : Initial Ministry Provided to : Patient, Family/Significant other Intervention/Comment/Summary Points : 3-day visit to patient, his waas persent with him. 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 He and his are looking forward to his next step in recovery and are hopeful that he will go to inpatient physical rehab soon. They are well-supported by family and judaism; prayed with them for patient's continued recovery. Spiritual/Emotional Acuity : Low Spiritual Framework : Well integrated, provides significant strength/resource Active in a Presybeterian/Nica Group : Yes Jain Preference : [employer] YOHANA DEL TORO, Oil And Gas Specialist-Non Cert - 11/28/2018 22:41 EDT Electronically signed by Marybeth [facility] Conversion Transport Assistant Cerner at 08/17/2022 9:52 AM CDT documented in this encounter Plan of Treatment Not on file documented as of this encounter Visit Diagnoses Not on filedocumented in this encounter
--- OUTSIDE RECORDS SUMMARY | 2024-10-24 07:16 | XMS_ITS | Encounter Summary ---
Author Organization [employer] Address [address] [place] [address] Care Team Providers Care Tip Cementer Name Role Phone Unavailable Primary Care Provider Unavailabl e Encounter Details Date Type Department Care Team (Late st Contact Info) Description 11/28/2018 Transcribed Document [facility] [place] [address] [place] [address] ProviderDarwin MD [address] [place] [address] Social History Tobacco Use Types Packs/Day Years Used Date Smoking Tobacco: Never Assessed Sex and Gender Information Value Date Recorded Sex Assigned at Male 10/27/2021 3:42 PM CDT Legal Sex Male 3:42 PM CDT Gender Identity Male 10/27/2021 3:42 PM CDT Sexual Orientation Not on file documented as of this encounter Miscellaneous Notes * Cerner Conversion Note - Historical ProviderMD - 11/28/2018 2:00 AM CDT Electronic Organ Mechanic Details Entered On: 11/28/2018 0:42 EDT Performed On: 11/28/2018 2:00 EDT by Myra Beltran RN Order Details Transport Mode Order Detail : Wheelchair Isolation Precautions Order Detail : Standard Precautions Order Detail : N/A IV Order Detail : 1 Oxygen Order Detail : 0 Nurse Collect Order Detail : 0 Lift/Transfer : Moderate assist Central Line Order Detail : No Room Service : Appropriate Arterial Line : No Myra Beltran RN - 11/28/2018 0:42 EDT documented in this encounter Plan of Treatment Not on file documented as of this encounter Visit Diagnoses Not on filedocumented in this encounter
--- OUTSIDE RECORDS SUMMARY | 2024-10-24 07:16 | XMS_ITS | Encounter Summary ---
Author Organization [employer] Address [address] [place] [address] Care Team Providers Care Remote Medical Coder Name Role Phone Unavailable Primary Care Provider Unavailabl e Encounter Details Date Type Department Care Team (Late st Contact Info) Description 11/27/2018 Transcribed Document [facility] [place] Medicine [facility] [place] [address] ProviderDarwin MD [address] [place] [address] Social History Tobacco Use Types [...] Conversion Note - Darwin ProviderMD - 11/27/2018 9:18 AM CDT Treatment Intervention, PT Entered On: 11/27/2018 16:09 EDT Performed On: 11/27/2018 15:57 EDT by MENDEZ DRAPER, LICENSING DIRECTOR General Information, PT Visit Type, PT : [...] Treatment Instructions Ordered By: BRIDGETTE MEJIAS MD-ORT 11/27/2018 09:18 PT Additional Treatment Ordered [...] Precautions in Place : Fall prevention measures MENDEZ DRAPER PTA - 11/27/2018 15:59 EDT General Status Patient Received Status : Long sitting in bed, Other: spouse, SCUDS, IV, needs in reach Treatment Start Time : 11/27/2018 15:34 EDT Patient Left Status : Long sitting in bed, Bed alarm activated, RN/PCT informed, All needs met and within reach, Other: spouse, SCUDS, REGIONAL OPERATIONS DIRECTOR/PCT Informed Comment : RN simran'abram pt for therapy session Treatment End Time : 11/27/2018 15:57 EDT Treatment Time : 23 Minute(s) MENDEZ DRAPER PTA - 11/27/2018 15:59 EDT Edu Topics Physical Therapy Education Grid Bed Mobility Training : Verbalizes understanding, Returns demonstration Gait Training : Verbalizes understanding, Returns demonstration Safety : Verbalizes understanding, Returns demonstration Transfer Training : Verbalizes understanding, Returns demonstration Use of Assistive Device : Returns demonstration, Verbalizes understanding MENDEZ DRAPER PTA - 11/27/2018 15:59 EDT Plan of Care, PT PT Tx Plan/Goals Established w Patient : Yes MENDEZ DRAPER PTA - 11/27/2018 15:59 EDT Longterm Goals Other PT LTG Grid Goal #1 Goal #2 Goal #3 Other : Patient will transfer with SBA/CGA to decrease caregiver burden. Patient will ambualte 100' with RWx CGA for household distances. Patient will perform therex AROM x 15 reps to improve strength/endurance for functional activities. Date to Meet : 11/30/2018 EDT 11/30/2018 EDT 11/30/2018 EDT Goal Status : Progressing, continue Progressing, continue Progressing, continue BARON MENDEZ Ballard, BRENDAN - 11/27/2018 15:59 EDT BARON, MENDEZ Ballard, BRENDAN - 11/27/2018 15:59 EDT BARON MENDEZ Ballard, BRENDAN - 11/27/2018 15:59 EDT Treatment Note Subjective Comment : Pt agreeable to physical therapy. Patient's Response to Treatment : Pt pleasant and worked well with therapy. Additional Objective Information : - sup to sit modA - EOB to stand with RWx Josiah - amb ~ 70' with RWx CGA - demonstrated slow pace, antalgic gait pattern, downward gaze, foot flat, no LOB - cues for reciprocal gait, FWB LLE, upright posture, heel toe walking - pt and spouse educated on proper gait mechanics and safety awareness, verbalized understanding - time spent educating and attending to pt's needs Gait Trainin minutes Assessment : Pt safely amb and increased gait distance this session. Pt progressing towards outstanding acute therapy goals. Plan for Treatment : Cont POC. MENDEZ DRAPER PTA - 11/27/2018 15:59 EDT Pain Assessment Pain Scaled Used : FACES Pain Score Pre-Intervention : 4 MENDEZ DRAPER PTA - 11/27/2018 15:59 EDT Image 1 - Images currently included in the form version of this document have not been included in the text rendition version of the form. [facility] PT Charges Gait Training Each 15 Min : 2 MENDEZ DRAPER PTA - 11/27/2018 15:59 EDT Electronically signed by Vicente Rueda Conversion Pupil Personnel Services Director Cerner at 08/17/2022 10:03 AM CDT documented in this encounter Plan of Treatment Not on file documented as of this encounter Visit Diagnoses Not on filedocumented in this encounter
--- OUTSIDE RECORDS SUMMARY | 2024-10-24 07:16 | XMS_ITS | Encounter Summary ---
Author Organization [employer] Address [address] [place] [address] Care Team Providers Care Utilization Review Nurse Name Role Phone Unavailable Primary Care Provider Unavailabl e Encounter Details Date Type Department Care Team (Late st Contact Info) Description 11/28/2018 Transcribed Document [facility] [place] [facility] [place] [address] ProviderDarwin MD [address] [place] [address] Social History Tobacco Use Types Packs/Day Years Used Date Smoking Tobacco: Never Assessed Sex and Gender Information Value Date Recorded Sex Assigned at Male 10/27/2021 3:42 PM CDT Legal Sex Male 3:42 PM CDT Gender Identity Male 10/27/2021 3:42 PM CDT Sexual Orientation Not on file documented as of this encounter Miscellaneous Notes * [employer] Conversion Note - Historical ProviderMD - 11/28/2018 10:41 AM CDT Patient: CLAUDINE FUENTES Age: 78 Years Sex: Male : 1940 comfortable. has been up with CGA 70' with PT. c/o incisional pain no left groin pain denies CP, SOB, calf pain. has eaten without difficulty/ voiding left hip dressing dry and intact. grossly NVI BLE - negative miguel's left thigh with moderate swell. no pain in left groin with LLE rotation s/p left gamma nail for hip fx. - stable await rehab. discussed home care will keep on Keflex 500 mg. TID for 7 days post -op. pt had received a steroid shot to surgical area one week prior to surgery f/u ortho in 2 weeks post D/C Electronically signed by Marybeth [facility] Conversion Radiology Interventional Physician Ace at 08/17/2022 9:55 AM CDT documented in this encounter Plan of Treatment Not on file documented as of this encounter Visit Diagnoses Not on filedocumented in this encounter
--- OUTSIDE RECORDS SUMMARY | 2024-10-24 07:16 | XMS_ITS | Encounter Summary ---
Author Organization [employer] Address [address] [place] [address] Care Team Providers Care Wood Pattern Maker Name Role Phone Unavailable Primary Care Provider Unavailabl e Encounter Details Date Type Department Care Team (Late st Contact Info) Description 11/27/2018 Transcribed Document [facility] [place] [address] [place] [address] ProviderDarwin MD [address] [place] [address] Social History Tobacco Use Types Packs/Day Years Used Date Smoking Tobacco: Never Assessed Sex and Gender Information Value Date Recorded Sex Assigned at Male 10/27/2021 3:42 PM CDT Legal Sex Male 3:42 PM CDT Gender Identity Male 10/27/2021 3:42 PM CDT Sexual Orientation Not on file documented as of this encounter Miscellaneous Notes * [employer]zoner Conversion Note - Darwin ProviderMD - 11/27/2018 10:00 AM CDT Pain Assessment Entered On: 11/27/2018 9:18 EDT Performed On: 11/27/2018 9:35 EDT by Frida Muir Rn Intervention Information: celecoxib Performed by Frida Muir Rn on 11/27/2018 08:35:00 EDT celecoxib,200mg Oral Pain Assessment Pain Assessment [...]
--- OUTSIDE RECORDS SUMMARY | 2024-10-24 07:16 | XMS_ITS | Data Portability ---
Author Organization LONNIE RIGO Kyle [facility] Address [address] [place] [address] Care Team Providers Care Iap Displays Analyst Name Role Phone MINI FREIRE Primary Care Provider Assessment Encounter Date Assessment Date Assessment LastModified by Organization Details LastModified Time 05/04/2022 05/04/2022 1. Epilepsy 2. free of seizure 3. Disease controlled on current meds 4. Tremor in hands 5. Walks on walker in house, also uses rollator 6. Needs help with personal care helps dress helps with shower does all meal prep he feeds self he does not fix glass of water he does ot fix coffee he needs help toileting recent sodium 128 on 04/20/23 Has regular follow up with Karen Freire MD Plan 1. Continue current antiepileptic meds 2. I advised the current tremor is possibly due to to the current antiepileptic medicine Patient and each say the tremor does not bother him 3. I propose no change and watch the tremor and adapt as possible 4. 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 Epilepsy 2. Free of seizure 3. Disease controlled by 2 Rx Depakote and levetiracetam 4 Good safety on 09/21/22 lab data 5. Abnormal gait, walks with walker, is stand-by assist, holding gait belt Plan 1. No changes needed. 2. Continue current meds 3. follow up telehealth in 6 months, sooner if needed. [email or web address] Not available 10/01/2022 12:59:24 04/07/2023 04/07/2023 1. Epilepsy 2. Seizure free 3. Disease controlled by LEV 4. He follows regularly with Dr. Karen Go 5. He needs lab test in June and September and Dec and Apr 6. 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 Disease controlled by 2 medications 4. Good tolerance of levetiracetam and Depakote 5. Hyponatremia, he holds steady with a sodium in the 130 131 range Plan 1. No changes needed 2. Regular blood test each 3 months needed to monitor CBC and BMP (sodium) 3. I informed Mrs. Fuentes that I will retire April. 4. Follow up in 6 months will be with Patti Recinos PA-C in our practice 5. I informed that office visit should be in-person in-office 6. I will mail requisition paper for lab tests in 3 mo Dec and 6 months Apr to monitor BMP and CBC Not available 10/18/2023 07:41:50 Plan of Treatment Reminders Order Date Submit Date Provider Last Modified By Organization Details Last Modified Time Details Appointments None recorded. Lab None recorded. Referral None recorded. Procedures None recorded. Surgeries None recorded. Imaging None recorded. Medication Orders Depakote ER 500 mg tablet,exte nded release 2023 024 [facility], [address] [place] [address], [address], 4 07:47:37 levetiracet am 1,000 mg tablet 2023 024 [facility], [address] [place] [address], [address], 4 07:47:35 levetiracet am 500 mg tablet 2023 024 [facility], [address] [place] [address], [address], 4 07:47:35 Patient TargetsNo targets recorded. Patient Instructions Encounter Date Encounter Id Patient Instructions Last Modified By Organization Details Last Modified Time 05/04/2022 [id number] CATEGORY DESCRIPTION MINUTES Prepare to see the patient (e.g. review of tests) Obtain/review separately obtained history reviewed prior notes and recent lab values for sodium level 5 Perform medically appropriate exam/evaluation 10 Order medications, tests, or procedures Side Panel Hanger/educate the patient/family/car egiver Refer/communicate w/other healthcare professionals Document clinical information into health record 10 Non-billable independent interp of results Non-billable care coordination TOTAL TIME 25 [id number] (15-29) 55383 (30-44) 07927 (45-59) 40848 (60-74) 16389 (10-19) 21985 (20-29) 83198 (30-39) 26646 (40-54) [email or web address] Not available 05/31/2022 06:20:49 Reason for Referral None Reported. Results Created Date Observation Date Name Description Value Unit Range Abnormal Flag Note LastModifiedBy Organization Detail LastModifiedTime Result Notes None recorded. Problems Name Problem SNOMED Code Status Onset Date Resolution Date Notes Provider Name and Address Organization Details Recorded Time Seizure 32884936 Active 019 Harini Tidwell [facility] 12/15/2018 10:41:19 Long-term drug therapy Active 021 Lisa (Katiuska) Mali [facility] 11/28/2020 15:21:21 Problem Notes Documentation Provider Name and Address Organization Details Recorded Time Endocrinology Consult Note : [address] [address]FURFKHES, Harry W (id #[id number], : 1940) [address] [address] Encounter Summary - Progress Note Date Printed: 05/25/2022 Documents sent via fax will include the followingmessage: This fax may contain sensitive and confidential personal health information that is being sent for the sole use of the intended recipient. Unintended recipients are directed to securely destroy any materials received. You are hereby notified that the unauthorized disclosure or other unlawful use of this fax or any personal health information is prohibited. To the extent patient information contained in this fax is subject to 42 CFR Part 2, this regulation prohibits unauthorized disclosure of these records. If you received this fax in error, please visit [email or web address] to notify the sender and confirm that the information will be destroyed. If you do not have internet access, please call to notify the sender and confirm that the information will be destroyed. Thank you for your attention and cooperation. [ID:[id number]] Patient Christian Fuentes (82yo, M) #[id number] 1940 Patient Demographics: Address [address] [place] [address] Work Phone Encounter Notes: Encounter Reason/DateNone recorded 05/25/2022 - 01:00PM - ENDOCRINOLOGY [facility] History of Present [id number] male patient with a past medical history significant for hyperlipidemia, seizure disorder on therapy, chronic hyponatremia seen today as a new office visit evaluation hyponatremia. Requesting provider: Dr. FarrarPatient's and son on bedside who relates to patient's medical history Per patient's he is known to have longstanding history of chronic hyponatremia. Instructed by Mini Schwartz's PCP in [place] to restrict fluid intake Reported respiratory infection/COVID he is relaxing fluid restriction but, more recently he is back to his fluid restriction around 33 fluid ounces per day He denies any nausea, vomiting, abdominal pain or leg cramping Most recent laboratory work-up done in April showed sodium of 128 Previously had normal TSH of 3 First week of May, urinary studies ordered by Dr. Freire for hyponatremia evaluation. Review of Systems Patient reports no constitutional symptoms. He reports no eye symptoms. He reports no cardiovascular symptoms. He reports no respiratory symptoms. He reports no gastrointestinal symptoms. He reports no genitourinary symptoms. He reports no skin symptoms. He reports no neurological symptoms. He reports no endocrine symptoms. Additionally reports:COVID Questionnaire 1. Have you or anyone accompanying you today been diagnosed with CoVid-19 in the past 5 days?? Patient: NO Visitor:____ 2. In the last 3 days have you and/or anyone with you today had COVID symptoms? (cough, fever, muscle aches, loss of taste or smell, vomiting, diarrhea, headache, sore throat, or congestion/runny nose) Patient: NO Visitor:____ 3. Have you and/or anyone accompanying you today been in close contact with a person known to have COVID-19/Coronavirus in the past 5 days? Patient: NO Visitor:____ If answered YES to any of the questions above. Notify provider/service dept. of arrival. Await instructions from provider's office. Vitals Ht: 5 ft 7 in Wt: 201 lbs BMI: 31.5 BP: 124/68 Pulse: 67 bpm Results/InterpretationsNone recorded Physical ExamSeen in the office today in a wheelchair Alert oriented x3 in no acute distress Neck is supple with no thyromegaly or cervical adenopathy Cardiac regular rate and rhythm with no murmur rubs or gallops ENT: Moist mucous membranes Skin multiple bruising Chest lungs are clear to auscultation bilateral with no additional sounds Procedure DocumentationNone recorded Assessment and Plan1. 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 On physical exam, he appears euvolemicReviewing his labs, most recent sodium of 128 on 2Previously had normal TSH I had a discussion with patient and his and his son at bedside, and I recommended to proceed with simultaneous serum and urine studies which include urine osmolarity, serum osmolarity, urine and serum sodium as well as serum cortisol. Patient's on bedside declined any further testing and stated that he he already has urinary studies ordered by his PCP Dr. Freire first week of May [ [facility]] She also stated that he had labs done which dates back to April. I tried to explain to her that I need to do simultaneous urine and blood but she adamantly declined any further blood and urinary studies as stated that he will not be able to do that. I alternatively suggested to provide them with a slip for simultaneous urine and blood studies to be done at an outside facility but she also declined and requested reviewing labs first On the basis of the above, I will contact [facility] to obtain a copy of urinary studies reported by patient's to be done first week of May for hyponatremia evaluation. Of note there was no simultaneous serum sodium or osmolality done on the same date. No further recommendations could be made due to the lack of any further information about the etiology of hyponatremia. He is currently restricting fluid intake to around 30 fluid ounces. Further follow-up and management to be deferred to his PCP and neurology. At this point, I recommended no further follow-up. Patient verbalized understanding and agreed with the above mentioned plan of care. I would like to thank Dr. Farrar for the opportunity to participate in the care of this patient.E87.1: Hypo-osmolality and hyponatremia Return to Office ISAC FARRAR MD for VIRTUAL VISIT at NEUROLOGY [facility] on 09/30/2022 at 02:45 PM Patient Medical History: Allergies List Reviewed Allergies NKDA Medications Reviewed Medications NameDate Source aspirin 325 mg tabletTake 1 tablet(s) every day by oral route.12/15/18 entered Lisa Samson atorvastatin 40 mg tabletTake 1 tablet(s) every day by oral route.10/16/18 entered Vasquez Crowder calcium 166.75 mg-vit D3 166.75 unit-vit C-vit K2-minerals capsuleTake by oral route.12/15/18 entered Lisa Samson cyanocobalamin (vit B-12) 1,000 mcg tabletTake by oral route.12/15/18 entered Lisa Samson Depakote ER 500 mg tablet,extended releaseTake 4 tablet(s) every day by oral route.01/29/20 entered Dulce Borges finasteride 5 mg tabletTake 1 tablet(s) every day by oral route.05/25/22 entered Loni Mouseelio glucosamine 375 ea-vkjuikrwu-isb no1 500 mg-C 15 mg-peggy 0.5 mg tabletTake by oral route.12/15/18 entered Lisa Samson levETIRAcetam 1,000 mg tabletTake 1 tablet(s) twice a day by oral route for 90 days.09/20/19 prescribed ISAC FARRAR MD levETIRAcetam 500 mg tabletTake 1 tablet(s) twice a day by oral route.07/03/20 entered Gopal Monreal mjlkuhahawyh71/16/19 entered Lisa Samson pantoprazole 40 mg tablet,delayed releaseTake 1 tablet(s) every day by oral route.10/16/18 entered Vasquez Lakesha Family HistoryReviewed Family History Father - Family history of cancer - Type 2 diabetes mellitus Mother - Obesity Past Medical History Allergies/Hayfever N ArthritisY Asthma N Bleeding Disorder N COPD N Cancer N Diabetes N Heart Attack ([place]) N High CholesterolY Hypertension N Kidney Disease N Kidney Stones N Liver Disease N Sleep Apnea N Tuberculosis N Notes Epilepsy Headache Vaccine HistoryReviewed Vaccines Vaccine Type Date Amt. Route Site [facility] Lot # Mfr. Exp. Date VIS VIS Given Inventory Technician COVID-19 COVID-19 (SARS-COV-2) vaccine, unspecified 06/06/20 pfizer COVID-19 (SARS-COV-2) vaccine, unspecified 05/05/20 pfizer Hepatitis A Hep A 05/02/18 [facility] Influenza influenza, injectable, quadrivalent 02/04/20 pharmacy influenza, injectable, quadrivalent 02/01/19 pcp influenza, injectable, quadrivalent 01/30/18 [facility] Pneumococcal pneumococcal 01/30/18 Shingles Vaccine 2018 [facility] Electronically Signed by: NORY GALLOWAY MD ISAC FARRAR MD [address] [place], [address], [facility] 05/31/2022 07:57:56 Procedures Surgical History Date Name Laterality Status Provider Name and Address Organization Details Recorded Time 03/14/20 20 Shoulder Surgery completed Rachel Mercado [facility] 10/17/2023 14:57:54 11/23/19 19 Injection Joint/Bursa, Major completed FELICITY PATEL [address] [place], [address], [facility] 11/22/2018 13:35:20 05/02/19 09 Appendectomy completed Lisa Samson (Camille) [facility] 12/15/2018 10:38:41 Orthopedic Surgery completed Vasquez Crowder [facility] 10/16/2018 11:33:59 Orthopedic Surgery completed Vasquez Lakesha [facility] 10/16/2018 11:34:47 Orthopedic Surgery completed Vasquez Lakesha [facility] 10/16/2018 11:35:37 Wrist arthroscopy/surg solo completed Rachel Mercado [facility] 10/17/2023 14:58:11 Hip Surgery completed Rachel Mercado [facility] 10/17/2023 14:58:29 procedure on ulna completed Rachel Mercado [facility] 10/17/2023 14:58:57 Imaging Results None recorded. Procedure Notes None recorded. Medical Equipment None Reported. Allergies Allergen ID Allergen Name Allergen Category Reaction Reaction Severity Criticality Documentation Date Start Date Code Code System Note Provider Name and Address Organization Details Recorded Time 250621 Product containin g penicilli n (product) medicatio n rash Not available Not available 10/17/2023 61122 8001 SNOMED Rachel Mercado [facility] 14:51:23 Medications Name Sig Start Date Stop Date Status Note LastModified by Organization Details LastModified Time cyclobenz aprine 10 mg tablet Take 1 tablet 3 times a day by oral route for 10 days. 12/15 completed Not Available Not Available Not Available Flomax 0.4 mg capsule Take 1 capsule every day by oral route. active Not Available Not Available No t Available atorvasta tin 40 mg tablet Take 1 tablet every day by oral route. active Not Available Not Available No t Available aspirin 325 mg tablet Take 1 tablet every day by oral route. 10/16 completed Not Available Not Available Not Available levetirac etam 500 mg tablet 1 BID 2023 active Not Available Not Available Not Avai lable phenytoin sodium extended 200 mg capsule Take 1 capsule 3 times a day by oral route. 05/25 completed Not Available Not Available Not Available cyanocoba maycol (vit B-12) 1,000 mcg tablet Take by oral route. active Not Available Not Available No t Available aspirin 81 mg tablet,de layed release Take 1 tablet twice a week by oral route. active Not Available Not Available No t Available phenobarb ital 60 mg tablet Two times a day 07/03 completed Frequenc y: bid;Medi cation Descript ion: phenobar bital; Dosage:1 ; Route:or al; refills: 5; Quantity :60 tablet Not Available Not Available Not Available Celebrex 200 mg capsule after meals 10/16 completed Duration : 30 days;Alex quency: pc;Alt Frequenc y: prn;Medi cation Descript ion: celecoxi b; Dosage:1 ; Route:or al; refills: 0; Quantity :30 capsule Not Available Not Available Not Available Synthroid 25 mcg tablet Take 1 tablet every day by oral route before meal(s). active Not Available Not Available No t Available Depakote ER 500 mg tablet,ex tended release Take 2 tablets twice a day by oral route. 2023 active Not Available Not Available Not Avai lable pantopraz ole 40 mg tablet,de layed release Take 1 tablet every day by oral route. active Not Available Not Available No t Available levetirac etam 750 mg tablet Take 1 tablet twice a day by oral route for 90 days. 07/03 completed Not Available Not Available Not Available Vitamin C 250 mg tablet Take 1 tablet every day by oral route. active Not Available Not Available No t Available finasteri de 5 mg tablet Take 1 tablet every day by oral route. active Not Available Not Available No t Available loratadin e 10 mg tablet Take 1 tablet every day by oral route as needed. active Not Available Not Available No t Available Lipitor Every night at bedtime 12/15 completed Frequenc y: qhs;Medi cation Descript ion: atorvast atin; Dosage:1 ; Route:or al; refills: 0; Quantity :30 tablet Not Available Not Available Not Available omeprazol e 12/15 completed Medicati on Descript ion: omeprazo le; refills: 0 Not Available Not Available Not Available Dilantin Three times a day 12/15 completed Instruct ions: 1 capsule by mouth three times daily;Fr equency: tid;Medi cation Descript ion: phenytoi n; Dosage:1 ; Route:or al; refills: 0; Quantity :90 capsule Not Available Not Available Not Available multivita min active Not Available Not Available Not Available Vitamin D3 10 mcg (400 unit) capsule Take 1 capsule every day by oral route. active Not Available Not Available No t Available levetirac etam 1,000 mg tablet Take 1 tablet twice a day by oral route for 90 days. 2023 active Not Available Not Available Not Avai lable Vimpat 200 mg tablet first week 1/2 tab hs, 2nd week 1/2 tab bid, 3rd week onward 1 tab bid 05/25 completed Not Available Not Available Not Available glucosami ne 375 mg-chondr oit-msm no1 500 mg-C 15 mg-peggy 0.5 mg tablet Take by oral route. 10/16 completed Not Available Not Available Not Available Prolia 60 mg/mL subcutane ous syringe Inject 1 mL by subcutan eous route. active every 6 months Not Available Not Available Not Available polyethyl jagruti glycol (bulk) 12/15 completed Not Available Not Available Not Available calcium 166.75 mg-vit D3 166.75 unit-vit C-vit K2-minera ls capsule Take by oral route. active Not Available Not Available No t Available Flonase Allergy Relief 50 mcg/actua tion nasal spray,latoya pension [place] 1 spray every day by intranas al route as needed. active Not Available Not Available No t Available Probiotic (B. coagulans ) 10 billion cell capsule,d elayed release Take 1 capsule every day by oral route. active Not Available Not Available No t Available zinc (glycinat e) 30 mg capsule Take 1 capsule every day by oral route with meal(s). active Not Available Not Available No t Available albuterol 90 mcg-budes onide 80 mcg/actua tion HFA aerosol inhaler Inhale as needed by inhalati on route. active Not Available Not Available No t Available Vitals Date Recorded Body height Body mass index (BMI) Body weight Provider Name and Address Organization Details Last Updated DateTime 05/04/2022 170.18 cm 31.5 kg/m2 78503.07 g Cem Escobar [facility] 05/04/2022 13:00:38 Date Recorded Body height Body mass index (BMI) Body weight Heart rate Systolic blood pressure Diastolic blood pressure Provider Name and Address Organization Details Last Updated DateTime 170.18 cm 31.5 kg/m2 16577.0 7 g 67 /min 124 mm[Hg] 68 mm[Hg] Loni Steele [facility] 12:57:46 Date Recorded Body height Body mass index (BMI) Body weight Provider Name and Address Organization Details Last Updated DateTime 09/30/2022 170.18 cm 32.3 kg/m2 82167.03 michael Escobar [facility] 09/30/2022 14:45:36 Date Recorded Body height Provider Name an d Address Organization Details Last Updated DateTime 10/17/2023 170.18 cm Rachel Mercado [facility] 0 10/17/2023 14:50:38 Date Recorded Body height Body mass index (BMI) Body weight Provider Name and Address Organization Details Last Updated DateTime 04/07/2023 170.18 cm 32.1 kg/m2 33870.44 g Micheline Frias [facility] 04/07/2023 14:47:07 Social History Question Answer Notes LastModified by Emefcy Details LastModified Time Tobacco Smoking Status [facility] 11:33:31 How Much Tobacco Do You Chew? None Information not available 12/15/2018 Which Illicit Or Recreational Drugs Have You Used? None [email or web address] Information not available 04/09/2019 When Did You Quit Smoking? 16+yearssinc elastcigaret te Information not available 12/15/2018 Live Alone Or With Others? With Others Information not available 12/15/2018 Marital Status Informatio n not available 12/15/2018 What Was The Date Of Your Most Recent Tobacco Screening? 10/17/2023 Information not available 10/17/2023 How Much Tobacco Do You Smoke? No Information not available 12/15/2018 How Many Years Have You Smoked Tobacco? 6 Information not available 12/15/2018 Sex: Unknown Functional Status Question Answer Note LastModified by Organizat ion Details LastModified Time What is your level of alcohol consumption? None Information not available 12/15/2018 Do you or have you ever used smokeless tobacco? Never used smokeless tobacco Information not available 12/15/2018 Are you currently employed? No Information not available 10/17/2023 What is your occupation? retired Information not available 12/15/2018 Do you or have you ever used e-cigarettes or vape? Never used electronic cigarettes Information not available 12/15/2018 Mental Status None recorded. Family History Relationship Description Onset Age of this Age Resolved Age Notes LastModified by Organization Details LastModified Time Father Family history of malignant neoplasm [email or web address] Not available 2018 10:36:56 Father Type 2 diabetes mellitus [email or web address] Not available 2018 10:37:20 Mother Obesity [email or web address] Not available 0 12/15/2018 10:37:29 Medical History Condition Response Kidney Stones N COPD N Arthritis Y Blood Clot N Cancer N Kidney Disease N Heart Conditions N Bleeding Disorder N Tuberculosis N Asthma N Anxiety/Depression N Anesthesia Complications N Blood Thinners N High Cholesterol Y Liver Disease N Allergies/Hayfever N Heart Attack ([place]) N Diabetes N Sleep Apnea N Hypertension N Immunizations Vaccine Type Date Status Note Provider Nam e and Address Organization Details Recorded Time Respiratory syncytial virus (RSV) MAB, unspecified 3 completed Rachel Jess [facility] 10/17/2023 14:59:59 SARS-COV-2 (COVID-19) vaccine, UNSPECIFIED 3 completed Rachel Jess [facility] 10/17/2023 15:00:10 Influenza, split virus, quadrivalent, preservative 8 completed Lisa (Katiuska) Mali [facility] 12/15/2018 10:43:01 pneumococcal, unspecified formulation 8 completed Lisa (Katiuska) Mali [facility] 12/15/2018 10:43:27 Hep A, unspecified formulation 9 completed Lisa (Katiuska) Croley [facility] 12/15/2018 10:44:01 Influenza, split virus, quadrivalent, preservative 9 completed Kaelyn Prasad [facility] 04/09/2019 10:43:22 Influenza, split virus, quadrivalent, preservative 0 completed Gopal Monreal [facility] 07/03/2020 12:58:10 SARS-COV-2 (COVID-19) vaccine, UNSPECIFIED 1 [facility] 12:58:26 SARS-COV-2 (COVID-19) vaccine, UNSPECIFIED 1 [facility] 12:58:40 Past Encounters Encounter ID Performer Location Encounter Start Date Encounter Closed Date Diagnosis/Indication Diagnosis SNOMED-CT Code Diagnosis ICD10 Code Diagnosis Note [id number] Elio JACOBSEN PA-C [facility] [address] [place] [address] 10/16/2018 11:09:29 10/16/2018 13:11:12 Pain of left hip joint 6292357013 70773 M25.133 [id number] Elio JACOBSEN PA-C [facility] [address] [address] 11/13/2018 10:15:04 11/13/2018 12:04:02 Pain of left hip joint [id number] 50758 M25.785 [id number] FELICITY PATEL [facility] [address] [place] [address] 11/22/2018 10:51:35 11/22/2018 12:28:50 Trochanteric bursitis of left hip [id number] [address] M70.62 [id number] ISAC FARRAR MD NEUROLOGY CHLOE CLOSED [address] [facility] [place] [address] 12/15/2018 10:18:30 12/15/2018 11:35:36 Seizure 24155578 R56.9 Long-term drug therapy 467266653 Z79.458 [id number] ISAC FARRAR MD NEUROLOGY SB CLOSED [address] [place] [address] 04/09/2019 10:36:03 04/09/2019 11:31:19 Seizure 62708748 R56.9 Epilepsy 99830737 G40.90 9 Long-term drug therapy 902362391 Z79.201 [id number] ISAC FARRAR MD NEUROLOGY SB CLOSED [address] [place] [address] 07/31/2019 10:59:36 07/31/2019 12:02:25 Seizure 01418629 R56.9 History of fall 16523520 9 Z91.81 Traumatic injury due to event 974128933 T14.90XA Epilepsy 59588626 G40.90 9 Long-term drug therapy 985934841 Z79.899 Unsteady gait 775928726 R26.81 [id number] ISAC FARRAR MD NEUROLOGY SB CLOSED [address] [place] [address] 1 09/20/2019 11:57:53 09/20/2019 13:02:04 Seizure 29194376 R56.9 [id number] ISAC FARRAR MD NEUROLOGY SB CLOSED [address] [place] [address] 1 01/30/2020 11:41:35 01/30/2020 12:32:31 Seizure 94444107 R56.9 [id number] ISAC FARRAR MD NEUROLOGY SB CLOSED [address] [place] [address] 1 04/09/2020 14:23:34 04/09/2020 15:11:09 Seizure 12507556 R56.9 [id number] ISAC FARRAR MD NEUROLOGY SB CLOSED [address] [place] [address] 1 07/03/2020 12:55:08 07/03/2020 13:30:57 Seizure 29880525 R56.9 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 Long-term current use of drug therapy 485066962 Z79.899 High risk medication monitoring indicated [id number] Z76.89 [id number] ISAC FARRAR MD NEUROLOGY SB CLOSED [address] [place] [address] 1 01/16/2021 12:55:55 01/16/2021 13:50:25 Epilepsy 53423287 G40.909 Long-term current use of drug therapy 720963957 Z79.845 [id number] ISAC FARRAR MD NEUROLOGY SB CLOSED [address] [place] [address] 1 07/20/2021 14:34:18 07/20/2021 15:05:31 [id number] ISAC FARRAR MD NEUROLOGY SB CLOSED [address] [place] [address] 1 01/20/2022 13:18:23 01/20/2022 13:34:36 Epilepsy 01573806 G40.909 Long-term current use of drug therapy 483927735 Z79.899 Abnormal g ait due to impairment of balance 731121293 R26.89 Hyponatremia 28988752 E8 7.1 [id number] ISAC FARRAR MD NEUROLOGY SB CLOSED [address] [place] [address] 05/04/2022 12:58:14 05/04/2022 14:05:29 Seizure 48449290 R56.9 [id number] NORY GALLOWAY MD ENDOCRINO LOGY SB [address] [place] [address] 05/25/2022 12:15:33 05/25/2022 13:40:45 Hyponatremia 00019086 E87.1 New office visit evaluation hyponatrem iaFrom history, its longstandi ng hyponatrem ia essentiall y asymptomat ic.Per patient's on bedside, he was instructed to restrict his fluid intake 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 On physical exam, he appears euvolemicR eviewing his labs, most recent sodium of 128 on 04/20/2022 Previously had normal TSH I had a discussion with patient and his and his son at bedside, and I recommende d to proceed with simultaneo us serum and urine studies which include urine osmolarity , serum osmolarity , urine and serum sodium as well as serum cortisol. Patient's on bedside declined any further testing and stated that he he already has urinary studies ordered by his PCP Dr. Freire first week of May [ [facility]] She also stated that he had labs done which dates back to April. I tried to explain to her that I need to do simultaneo us urine and blood but she adamantly declined any further blood and urinary studies as stated that he will not be able to do that. I soren choe suggested to provide them with a slip for simultaneo us urine and blood studies to be done at an outside facility but she also declined and requested reviewing labs first On the basis of the above, I will contact [employer] [facility] to obtain a copy of urinary studies reported by patient's to be done first week of May for hyponatrem ia evaluation . Of note there was no simultaneo us serum sodium or osmolality done on the same date. No further recommenda tions could be made due to the lack of any further informatio n about the etiology of hyponatrem ia. He is currently restrictin g fluid intake to around 30 fluid ounces. Further follow-up and management to be deferred to his PCP and neurology. At this point, I recommende d no further follow-up. Patient verbalized understand ing and agreed with the above mentioned plan of care. I would like to thank Dr. Farrar for the opportunit y to participat e in the care of this patient. [id number] ISAC FARRAR MD NEUROLOGY CLOSED [address] [place] [address] 1 09/30/2022 14:44:05 09/30/2022 15:39:45 Epilepsy 83245678 G40.909 Long-term current use of drug therapy 307139157 Z79.899 Abnormal g ait due to impairment of balance 062958154 R26.89 [id number] ISAC FARRAR MD NEUROLOGY SB CLOSED [address] [place] [address] 1 04/07/2023 14:45:04 04/18/2023 11:29:09 Epilepsy 83611970 G40.909 Long-term current use of drug therapy 886360803 Z79.899 [id number] ISAC FARRAR MD NEUROLOGY CLOSED [address] [place] [address] 1 10/17/2023 14:49:25 10/19/2023 05:09:55 Seizure 99466913 R56.9 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 630798864 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 Long-term current use of drug therapy 829359312 Z79.899 Abnormal g ait due to impairment of balance 812945422 R26.89 Hyponatremia 11127151 E8 7.1 Epilepsy 88576418 G40.90 9 Health Concerns Section Related Observation LastModified by Organization Detai ls LastModified Time None Recorded Concern Status LastModified by Organization Details LastModified Time None Recorded Advance Directives Directive None Recorded Payers Insurance Date Sequence Insurance Name Policy Number Policy Padilla Covered Member ID Padilla Member ID Guarantor Name 10/17/2023 1 [facility] (MEDICARE REPLACEMENT/A DVANTAGE - PPO) [id number] Christian Fuentes [id number] Christian Fuentes Notes Date Note Type Note Provider Name and Address Organization Details Recorded Time 3 text/html [id number] y/o male W/ Lavern Epilepsy Pt stated no seizures since 12/05/2019 Pt stated he is free of seizure Tolerating current meds Depakote ER 500 mg 2 tabs in AM and 2 in evening Levetiracetam 1,000 mg x 1 tab bid Levetiracetam 500 mgm x 1 tab bid Pts would like to discuss tremors in both hands Pt doing well overall ISAC FARRAR MD [address] [place] [address], [phone], [facility] 05/31/2022 06:21:11 3 text/html 82-year-old male patient with a past medical history significant for hyperlipidemia, seizure disorder on therapy, chronic hyponatremia seen today as a new office visit evaluation hyponatremia. Requesting provider: Dr. FarrarPatient's and son on bedside who relates to patient's medical history Per patient's he is known to have longstanding history of chronic hyponatremia. Instructed by Mini Schwartz's PCP in [place] to restrict fluid intake Reported respiratory infection/COVID he is relaxing fluid restriction but, more recently he is back to his fluid restriction around 33 fluid ounces per day He denies any nausea, vomiting, abdominal pain or leg cramping Most recent laboratory work-up done in April showed sodium of 128 Previously had normal TSH of 3 First week of May, urinary studies ordered by Dr. Freire for hyponatremia evaluation. NORY GALLOWAY MD [facility] [place], [address], [facility] 05/25/2022 13:34:36 3 text/html [id number] y/o male W/ Lavern Epilepsy No seizures Pt stated the medications are helping to control his seizures Pt would like to discuss sodium levels from last labs (09/21/22) sodium 131 all CMP values normal all CBC numbers normal feeling well able to walk outside with walker walks with him, holds onto gait belt Current Meds Depakote ER 500 mg 2 tabs in AM and 2 in evening Levetiracetam 1,000 mg x 1 tab bid Levetiracetam 500 mgm x 1 tab bid Pt doing well overall ISAC FARRAR MD [address] [place] [address], [phone], [facility] 10/01/2022 13:00:13 3 text/html Telehealth , pt and in [place] , at home in [facility] seizure free good routine taking meds had recent virus in March is walking only a little he walks in the house recent lab work not concerning I advised continue his regular amount of LEV ISAC FARRAR MD [address] [place] [address], [phone], [facility] 04/15/2023 22:34:57 4 text/html Neurology follow-up visit Telehealth There were several technical problems. I spent a total of 35 minutes accomplishing this visit Most of the technical issue was on the patient and getting adequate camera and audio signal. As the visit progressed, Mrs. Jimenez handled the camera and audio and we were much more successful She comments that he is doing wellFree of seizureTolerating medicines wellMentation balance coordination all going wellHe is walking well Recent blood studies by Dr. Freire had a sodium 131, this is a stable conditionEncouraged he must continue to get this checked each 3 months current seizure meds Depakote ER 500 x 2 bidlevetiracetam 1,000 bid + 500 BID f/up EC in 6 months ISAC FARRAR MD [address] [place] [address] [place], [phone], [facility] 10/18/2023 07:48:15
--- OUTSIDE RECORDS SUMMARY | 2024-10-24 07:16 | XMS_ITS | Encounter Summary ---
Author Organization [employer] Address [address] [place] [address] Care Team Providers Care Home Appliances Mechanic Name Role Phone Unavailable Primary Care Provider Unavailabl e Encounter Details Date Type Department Care Team (Late st Contact Info) Description 11/27/2018 Transcribed Document [facility] [place] Family Medicine [address] [place] [address] ProviderDarwin MD [address] [place] [address] Social History Tobacco Use Types [...] Conversion Note - Darwin ProviderMD - 11/27/2018 9:20 AM CDT UM Authorization Entered On: 11/27/2018 9:21 EDT Performed On: 11/27/2018 9:20 EDT by JONY PALOMO RN-Utilization Review Primary Insurance Authorization Authorization and Policy Numbers : Insurance 1 Health Plan: [employer] Policy Number: [id number] Authorization Number: Insurance Primary Name : [facility] Medicare Authorization Status-Primary : Awaiting callback Authorized Service Begin Date-Primary : 11/26/2018 EDT Authorization Comments-Primary : Uploaded clinicals to [facility] Medicare via [employer]. Historical Authorization Comments-Primary : No Authorization Comments Found JONY PALOMO RN-Utilization Review - 11/27/2018 9:20 EDT documented in this encounter Plan of Treatment Not on file documented as of this encounter Visit Diagnoses Not on filedocumented in this encounter
--- OUTSIDE RECORDS SUMMARY | 2024-10-24 07:16 | XMS_ITS | Encounter Summary ---
Author Organization [employer] Address [address] [place] [address] Care Team Providers Care Scrubbing Machine Operator Name Role Phone Unavailable Primary Care Provider Unavailabl e Encounter Details Date Type Department Care Team (Late st Contact Info) Description 11/27/2018 Transcribed Document [facility] [place] [address] [place] [address] ProviderDarwin MD [address] [place] [address] Social History Tobacco Use Types [...] Conversion Note - Darwin ProviderMD - 11/27/2018 9:28 AM CDT Treatment Intervention, OT Entered On: 11/28/2018 11:43 EDT Performed On: 11/28/2018 11:06 EDT by FLORES COTTRELL OTR/Delilah General Information, OT Visit Type, OT : Treatment Note Patient Orders : Order Date Order Ordering 11/26/2018 21:05 OT Evaluation and Treatment Ordered By: BRIDGETTE MEJIAS MD-OREric 11/26/2018 21:05 OT Treatment Instructions Ordered By: BRIDGETTE MEJIAS MD-ORT 11/27/2018 09:28 Occupational Therapy Additional Tx Ordered By: Active Diagnoses : 11/26/2018 00:00 Epilepsy, unspecified, not intractable, without status epilepticus 11/26/2018 00:00 Essential (primary) hypertension 11/26/2018 00:00 Fracture of unspecified part of neck of left femur, initial encounter for closed fracture 11/26/2018 00:00 Hip pain-swelling 11/26/2018 00:00 Hyperlipidemia, unspecified 11/26/2018 00:00 Hypo-osmolality and hyponatremia Admission Date : 11/26/2018 12:26 Personal Devices : Personal Devices No Devices Recorded Assistive Devices : Assistive Devices No Devices Recorded Precautions in Place : Fall prevention measures FLORES COTTRELL OTR/L - 11/28/2018 11:38 EDT General Status Patient Received Status : Up in chair, Chair alarm activated, Other: present Treatment Start Time : 11/28/2018 10:54 EDT Patient Left Status : Supine in bed, Bed alarm activated, RN/PCT informed, Family/Visitors at bedside, All needs met and within reach, Other: present, scds RN/PCT Informed Comment : RN Ok'd to tx, ID and verified Treatment End Time : 11/28/2018 11:06 EDT Treatment Time : 12 Minute(s) FOLRES COTTRELL OTR/L - 11/28/2018 11:38 EDT Self Care/Home Management, OT Bed/Chair/WC Transfer Assist Level : Assist, minimal Bed/Chair/WC Transfer Device : Belt, gait, Walker, front wheel Bed/Chair/WC Device Comment : CGA/min assist transfer chair to bed and cues for safe completion, pt fatigued FLORES COTTRELL OTR/L - 11/28/2018 11:38 EDT Mobility Device/Prosthesis/Wt Bearing Weight Bearing Status Maintained : Yes Weight Bearing Status : As tolerated Functional Ambulation Comment : cues for safe completion Functional Mobility Device : Gait belt, Walker, front wheel Functional Mobility with Brace/Splint : No FLORES COTTRELL OTR/L - 11/28/2018 11:38 EDT Functional Mobility Mobility Grid Sit to Stand : Rehab Minimal assistance (Comment: CGA [FLORES COTTRELL OTR/L - 11/28/2018 11:38 EDT] ) Chair to Bed : Rehab Minimal assistance (Comment: CGA [FLORES COTTRELL OTR/L - 11/28/2018 11:38 EDT] ) Stand to Sit : Rehab Minimal assistance (Comment: CGA [FLORES COTTRELL OTR/L - 11/28/2018 11:38 EDT] ) Sit to Supine : Supervision/set-up (Comment: using gait belt to assist LLE into bed [FLORES COTTRELL OTR/L - 11/28/2018 11:38 EDT] ) FLORES COTTRELL OTR/L - 11/28/2018 11:38 EDT Functional MobilityComment : CGA/min transfer chair to bed , cues for safety FLORES COTTRELL OTR/L - 11/28/2018 11:38 EDT Education OT Occupational Therapy Education Grid Functional Mobility Training : Returns demonstration, Needs further teaching FLORES COTTRELL OTR/L - 11/28/2018 11:38 EDT Plan of Care, OT OT Tx Plan/Goals Established w Patient : Yes FLORES COTTRELL OTR/L - 11/28/2018 11:38 EDT Residential Goals, OT Other LTG Grid Goal #1 Goal #2 Goal #3 Goal : Pt will VU of home safety and car transfer handout. Pt will complete ADL transfer with CGA, RW level. Pt will complete LB self care task with CGA, AE prn. Date to Meet : 12/03/2018 EDT 12/03/2018 EDT 12/03/2018 EDT Goal Status : Initial goal Progressing, continue Initial goal FLORES COTTRELL OTR/Delilah - 11/28/2018 11:38 EDT FLORES COTTRELL OTR/L - 11/28/2018 11:38 EDT FLORES COTTRELL OTR/L - 11/28/2018 11:38 EDT Treatment Note Subjective Comment : pt agrees to tx, fatigued after sitting in chair and assisted back to bed Additional Objective Information : ADL Assessment : pt will continue to benefit from skilled OT while inpt, progressing with goals Plan for Treatment : continue POC, pending rehab FLORES COTTRELL OTR/Delilah - 11/28/2018 11:38 EDT Pain Assessment Pain Scaled Used : 0-10 Pain scale Pain Score Pre-Intervention : 3 Location : Leg, left Pain Comment : pt reports has had meds FLORES COTTRELL OTR/L - 11/28/2018 11:38 EDT Image 1 - Images currently included in the form version of this document have not been included in the text rendition version of the form. [facility] OT Charges OT Selfcare/Hm Mgmt Ea 15 Min : 1 FLORES COTTRELL OTR/Delilah - 11/28/2018 11:38 EDT Electronically signed by Marybeth, Saul Conversion Power Electronics Research Engineer [employer] at 08/17/2022 10:09 AM CDT documented in this encounter Plan of Treatment Not on file documented as of this encounter Visit Diagnoses Not on filedocumented in this encounter
--- OUTSIDE RECORDS SUMMARY | 2024-10-24 07:16 | XMS_ITS | Encounter Summary ---
Author Organization [employer] Address [address] [place] [address] Care Team Providers Care Construction Services Technician Name Role Phone Unavailable Primary Care Provider Unavailabl e Encounter Details Date Type Department Care Team (Late st Contact Info) Description 11/27/2018 Transcribed Document [facility] [place] [address] [place] [address] ProviderDarwin MD [address] [place] [address] Social History Tobacco Use Types [...] Conversion Note - Darwin ProviderMD - 11/27/2018 5:00 PM CDT Chart Check - Review Order Profile Entered On: 11/27/2018 19:41 EDT Performed On: 11/27/2018 17:00 EDT by Frida Muir Rn Chart Check Power[employer] Initiated/Discontinued as Appropriate : Yes All Active Orders Reviewed : Yes Frida Muir, Tony - 11/27/2018 19:41 EDT documented in this encounter Plan of Treatment Not on file documented as of this encounter Visit Diagnoses Not on filedocumented in this encounter
--- OUTSIDE RECORDS SUMMARY | 2024-10-24 07:16 | XMS_ITS | Encounter Summary ---
Author Organization [employer] Address [address] [place] [address] Care Team Providers Care Account Planner Name Role Phone Unavailable Primary Care Provider Unavailabl e Encounter Details Date Type Department Care Team (Late st Contact Info) Description 11/27/2018 Transcribed Document [facility] [place] [address] [place] [address] ProviderDarwin MD [address] [place] [address] Social History Tobacco Use Types [...] Conversion Note - Historical ProviderMD - 11/27/2018 2:00 AM CDT Ecommerce Marketing Specialist Details Entered On: 11/27/2018 6:42 EDT Performed On: 11/27/2018 2:00 EDT by Cris Goodman RN Order Details Transport Mode Order Detail : Wheelchair Isolation Precautions Order Detail : Standard Precautions Order Detail : N/A IV Order Detail : 1 Oxygen Order Detail : 0 Nurse Collect Order Detail : 0 Lift/Transfer : Moderate assist Central Line Order Detail : No Room Service : Appropriate Arterial Line : No Cris Goodman RN - 11/27/2018 6:41 EDT documented in this encounter Plan of Treatment Not on file documented as of this encounter Visit Diagnoses Not on filedocumented in this encounter
--- OUTSIDE RECORDS SUMMARY | 2024-10-24 07:16 | XMS_ITS | Encounter Summary ---
Author Organization [employer] Address [address] [place] [address] Care Team Providers Care Foreign Language Teacher Name Role Phone Unavailable Primary Care Provider Unavailabl e Encounter Details Date Type Department Care Team (Late st Contact Info) Description 11/27/[address] [facility] [place] Family Medicine [address] [place] [address] ProviderDarwin MD [address] [place] [address] Social History Tobacco Use Types [...] Conversion Note - Darwin ProviderMD - 11/27/2018 9:34 AM CDT UM Authorization Entered On: 11/27/2018 9:34 EDT Performed On: 11/27/2018 9:34 EDT by VANDANA CRUZ RN-Utilization Review Primary Insurance Authorization Authorization and Policy Numbers : Insurance 1 Health Plan: [employer] Policy Number: [id number] Authorization Number: [id number] Insurance Primary Name : [facility] Medicare Authorization Status-Primary : Awaiting callback Reference Number-Primary : [id number] Authorized Service Begin Date-Primary : 11/26/2018 EDT Historical Authorization Comments-Primary : Comment 1: Uploaded clinicals to [facility] Medicare via [employer]. (JONY PALOMO RN-Utilization Review 11/27/2018 09:20) VANDANA CRUZ RN-Utilization Review - 11/27/2018 9:34 EDT Electronically signed by Marybeth [facility] Conversion Dancing Master [employer] at 08/17/2022 10:00 AM CDT documented in this encounter Plan of Treatment Not on file documented as of this encounter Visit Diagnoses Not on filedocumented in this encounter
--- OUTSIDE RECORDS SUMMARY | 2024-10-24 07:16 | XMS_ITS | Encounter Summary ---
Author Organization [employer] Address [address] [place] [address] Care Team Providers Care Lithographer Apprentice Name Role Phone Unavailable Primary Care Provider Unavailabl e Encounter Details Date Type Department Care Team (Late st Contact Info) Description 11/27/2018 Transcribed Document [facility] [place] [address] [place] [address] ProviderDarwin MD [address] [place] [address] Social History Tobacco Use Types [...] Note - Darwin Obrien MD - 11/27/2018 10:37 PM CDT Patient: CLAUDINE GARAY Age: 78 years Sex: Male : 1940 Associated Diagnoses: Fracture of neck, unspecified, initial encounter; Left Hip pain-swelling; Fracture of femoral neck, left, closed; Hypertension; Hyperlipidemia with low HDL; Seizure disorder; Hyponatremia Author: MELANIE SANDOVAL MD-INT Basic Information awake alert comfortable, asympt. , pain under control, no trouble w. urination. ???Slow participation with PT/OT Review of Systems Constitutional: No fever, No [...] Medication Allergies None Documented Current medications: Medications (35) Active Scheduled: (9) #NaCl 0.9% *FLUSH* inj 10 mL 10 [...] Seizure disorder Physical Examination VS/Measurements Vital Measurements 11/27/2018 21:33 EDT Systolic Blood Pressure 136 mmHg Diastolic Blood Pressure 66 mmHg Mean Arterial Pressure (MAP)-BMDI 80 Temperature Source Oral Temperature Mode Fahrenheit Temperature, Fahrenheit 98.9 Deg F Clinical Temperature, C 37.2 Deg C Heart Rate Monitored 87 bpm Respiratory Rate 16 Breaths/Min Oxygen Saturation [...] Review / Management Results review: All Results 11/27/2018 2:52 EDT Sodium Level 132 mmol/L [...] 12.5 % LOW Lymph # 1.68 K/uL Campbell % 8.1 % Campbell # 1.08 K/uL HI Eos % 0.4 % LOW Eos # 0.05 K/uL Baso % 0.1 % Baso # 0.02 K/uL Slide Review No IG# 0 x10(3)/uL IG% 0 % 11/26/2018 12:10 EDT Sodium Level 133 mmol/L LOW Potassium Level 4.2 mmol/L Chloride Level 100 mmol/L LOW Carbon Dioxide Level 27 mmol/L Anion Gap 10 Glucose Level 77 mg/dL Blood Urea Nitrogen 17 mg/dL Creatinine [...] 10.2 Second(s) INR 1.0 PTT 25.4 Second(s) . Condition: Stable. Impression and Plan Diagnosis Fracture of neck, unspecified, initial encounter - Working. Complaint of Left Hip pain-swelling - Reason For Visit, Emergency medicine, Medical. Fracture of neck, unspecified, initial encounter - Admitting. Fracture of femoral neck, left, closed - [...] nebs, for risk precautions, sleep apnea precautions, rneed to go to rehabilitation.. documented in this encounter Plan of Treatment Not on file documented as of this encounter Visit Diagnoses Not on filedocumented in this encounter
--- OUTSIDE RECORDS SUMMARY | 2024-10-24 07:16 | XMS_ITS | Encounter Summary ---
Author Organization [employer] Address [address] [place] [address] Care Team Providers Care Corrections Identification Technician Name Role Phone Unavailable Primary Care Provider Unavailabl e Encounter Details Date Type Department Care Team (Late st Contact Info) Description 11/28/2018 Transcribed Document [facility] [place] Family Medicine [facility] [place] [address] ProviderDarwin MD [address] [place] [address] Social History Tobacco Use Types [...] Conversion Note - Darwin ProviderMD - 11/28/2018 2:48 PM CDT On Going Discharge Planning Entered On: 11/28/2018 14:49 EDT Performed On: 11/28/2018 14:48 EDT by CHINMAY PASCUAL, Rn-Catering Convention Services ManagerCommodity Specialist Progress Note Discharge Arrangements : Patient Post-Acute Information Patient Name: CHRISTIAN FUENTES Gender: Male : [birth year] Age: 78 Years No Post-Acute Placement(s) Listed No Post-Acute Service(s) Listed No Curaspan Referral(s) Listed Discharge Options Discussed with Patient : DME, Home Health, Outpatient services, Short term rehabilitation Barriers to Discharge Identified : Insurance authorization pending Were Referrals Sent to Post Acute Providers : Yes Is the Patient Meeting Medical Necessity : No Did you Document Avoidable Days? : Yes Did you Attend Multidisciplinary Rounds? : No CHINMAY PASCUAL, Rn-Catering Convention Services Manager - 11/28/2018 14:48 EDT Narrative Progress Note Narrative Progress Note : Precert pending for [facility] CHINMAY PASCUAL Rn-Catering Convention Services Manager - 11/28/2018 14:48 EDT documented in this encounter Plan of Treatment Not on file documented as of this encounter Visit Diagnoses Not on filedocumented in this encounter
--- OUTSIDE RECORDS SUMMARY | 2024-10-24 07:16 | XMS_ITS | Encounter Summary ---
Author Organization [employer] Address [address] [place] [address] Care Team Providers Care Coin Machine Servicer Repairer Name Role Phone Unavailable Primary Care Provider Unavailabl e Encounter Details Date Type Department Care Team (Late st Contact Info) Description 11/28/2018 Transcribed Document [facility] [place] Family Medicine [address] [place] [address] ProviderDarwin MD [address] [place] [address] Social History Tobacco Use Types [...] Conversion Note - Historical ProviderMD - 11/28/2018 5:00 AM CDT Chart Check - Review Order Profile Entered On: 11/28/2018 5:44 EDT Performed On: 11/28/2018 5:00 EDT by Myra Beltran RN Chart Check Powerplans Initiated/Discontinued as Appropriate : Yes All Active Orders Reviewed : Yes Myra Beltran RN - 11/28/2018 5:44 EDT documented in this encounter Plan of Treatment Not on file documented as of this encounter Visit Diagnoses Not on filedocumented in this encounter
--- OUTSIDE RECORDS SUMMARY | 2024-10-24 07:16 | XMS_ITS | Encounter Summary ---
Author Organization [employer] Address [address] [place] [address] Care Team Providers Care Sporting Goods Salesperson Name Role Phone Unavailable Primary Care Provider Unavailabl e Encounter Details Date Type Department Care Team (Late st Contact Info) Description 11/27/2018 Transcribed Document [facility] [place] Family Medicine [address] [place] [address] ProviderDarwin MD [address] [place] [address] Social History Tobacco Use Types [...] Conversion Note - Darwin ProviderMD - 11/27/2018 10:21 AM CDT Patient: CLAUDINE GARAY Age: 78 years Sex: Male : 1940 Associated Diagnoses: None Author: UMA BROWER, PharmD Pharmacy verified patient's allergies and home medication list with the patient and pharmacy records and are as follows: Home Medications (11) Active aspirin 81 mg oral tablet 81 mg = 1 Tab, Oral, Weekly calcium (as carbonate)-vitamin D 600 mg-200 intl units oral tablet 1 Tab, Oral, QPM Chondroitin-Glucosamine 600 mg-750 mg oral tablet 1 Tab, Oral, BID cyanocobalamin 1000 mcg sublingual tablet 1,000 mcg = 1 Tab, SubLINgual, QPM cyclobenzaprine 10 mg oral tablet 0.5-1 tab, PRN, Oral, TID finasteride 5 mg oral tablet 5 mg = 1 Tab, Oral, Daily Lipitor 40 mg oral tablet 40 mg = 1 Tab, Oral, Daily multivitamin 1 Tab, Oral, Daily pantoprazole 40 mg oral delayed release tablet 40 mg = 1 Tab, Oral, BIDAC PHENobarbital 64.8 mg oral tablet 129.6 mg = 2 Tab, Oral, BID phenytoin 100 mg oral capsule, extended release 200 mg = 2 Cap, Oral, Daily Allergies (1) Active Reaction No Known Medication Allergies Thanks, Uma Brower, PharmD/MSCR documented in this encounter Plan of Treatment Not on file documented as of this encounter Visit Diagnoses Not on filedocumented in this encounter
--- OUTSIDE RECORDS SUMMARY | 2024-10-24 07:16 | XMS_ITS | Encounter Summary ---
Author Organization [employer] Address [address] [place] [address] Care Team Providers Care Ecommerce Project Manager Name Role Phone Unavailable Primary Care Provider Unavailabl e Encounter Details Date Type Department Care Team (Late st Contact Info) Description 11/27/2018 Transcribed Document [facility] [place] Family Medicine [address] [place] [address] ProviderDarwin MD [address] [place], [place] [id number] Social History Tobacco Use Types Packs/Day Years Used Date Smoking Tobacco: Never Assessed Sex and Gender Information Value Date Recorded Sex Assigned at Male 10/27/2021 3:42 PM CDT Legal Sex Male 3:42 PM CDT Gender Identity Male 10/27/2021 3:42 PM CDT Sexual Orientation Not on file documented as of this encounter Miscellaneous Notes * Cerner Conversion Note - Historical ProviderMD - 11/27/2018 8:51 AM CDT UM Authorization Entered On: 11/27/2018 8:52 EDT Performed On: 11/27/2018 8:51 EDT by JONY PALOMO RN-Utilization Review Primary Insurance Authorization Authorization and Policy Numbers : Insurance 1 Health Plan: [place] [employer] Policy Number: [id number] Authorization Number: Insurance Primary Name : [facility] Medicare Authorization Status-Primary : Awaiting callback Authorized Service Begin Date-Primary : 11/26/2018 EDT Historical Authorization Comments-Primary : No Authorization Comments Found JONY PALOMO RN-Utilization Review - 11/27/2018 8:51 EDT documented in this encounter Plan of Treatment Not on file documented as of this encounter Visit Diagnoses Not on filedocumented in this encounter
--- OUTSIDE RECORDS SUMMARY | 2024-10-24 07:16 | XMS_ITS | Continuity of Care Document ---
Author Organization [facility] Address [address] [facility], [address] [place] [address] Care Team Providers Care Wheel And Axle Inspector Name Role Phone [facility] Referring Provider BRIDGETTE MEJIAS Referring Provider Assessment Encounter Date Assessment Date Assessment LastModified by Organization Details LastModified Time 08/30/2024 08/30/2024 Mr. Fuentes follows up on [...] recorded. Lab TSH, serum or plasma 2024 [facility], [address], [place], [address], 13:25:39 levetiracet am, serum 2024 025 [facility] [facility], [address], [place], [address], 13:25:39 valproic acid, total, serum 2024 025 [facility], [address], [place], [address], 13:25:40 CMP, serum or plasma 2024 025 [facility], [address], [place], [address], 13:25:38 Referral None recorded. Procedures None recorded. Surgeries None recorded. Imaging None recorded. Medication Orders ipratropium bromide 42 mcg (0.06 %) nasal spray 2024 [employer], [address] [place] [address], [address], 15:37:37 mupirocin 2 % topical ointment 2024 [id number], [address], [place], [id number], 15:37:42 nystatin 100,000 unit/gram topical ointment 2024 025 [id number], [address], [place], [id number], 5 15:37:40 nystatin 100,000 unit/gram topical cream 2024 025 [facility], [address] [place] [address], [address], 5 15:37:36 Patient TargetsNo targets recorded. Patient InstructionsNo instructions recorded. Reason for Referral None Reported. Problems Name Problem SNOMED Code Status Onset Date Resolution Date Notes Provider Name and Address Organization Details Recorded Time Gastroeso phageal reflux disease 869818880 Active Not Available [facility] 0 17:52:26 Osteoporo sis 26851290 Active Not Available [facility] 0 17:52:26 Hyperlipi demia 35807808 Active Not Available [facility] 0 17:52:26 Generaliz ed osteoarth ritis 012796965 Active Not Available [facility] 0 17:52:26 Disorder of urinary tract 85771059 Active Not Available [facility] 0 17:52:26 Acute bronchiti s 54090240 Completed 02/11/2019 Mini Freire MD [address], [address] , [facility] 9 14:00:55 Epilepsy 99606124 Active Not Available [facility] 0 17:52:26 Disorder of prostate 30028362 Active Not Available [facility] 0 17:52:26 Malaise and fatigue 795744513 Active Not Available [facility] 0 17:52:26 Hyponatre carlota 80109158 Active Not Available [facility] 0 17:52:26 Hand eczema 337809800 Completed 02/11/2019 Mini Freire MD [address] [facility] [place], [address] , [facility] 9 14:01:07 Multiple actinic keratoses 278043923 Active Not Available [facility] 0 17:52:26 Acute sinusitis 88068774 Completed 02/11/2019 Mini Freire MD [address] [address], [place], [address] , [facility] 9 14:00:49 Fatigue 23035708 Active Not Available [facility] 0 17:52:26 Abdominal pain 72316855 Active Not Available [facility] 0 17:52:26 Fracture of humerus 09378693 Active 2019 Mini Freire MD [address], [address] [place] [address] , [facility] 0 23:20:57 Closed fracture of right acetabulu m 12626616307 500372 Active 2019 Mini Freire MD [address], [address] [place] [address] , [facility] 0 23:20:44 Problem Notes None recorded. Procedures Surgical History Date Name Laterality Status Provider Name and Address Organization Details Recorded Time 03/14/20 20 reverse prosthetic total arthroplasty of right shoulder completed Mini Freire MD [address] [address], [place], [place], [address] [place] [address], [facility] 06/13/2020 08:30:49 11/27/19 19 repair of hip completed [facility] 12/22/2018 13:37:34 04/12/20 17 Colonoscopy completed Mini Freire MD [address], [address], [facility] 05/16/2017 09:30:12 01/26/20 17 Nebulizer tx completed Mini Freire MD [address], [address], [facility] 01/25/2017 10:57:41 03/02/20 16 Knee arthroscopy/surge ry completed Mini Freire MD [address], [address], [facility] 12/24/2018 14:50:20 05/02/19 15 Cataract Surgery completed Mini Freire MD [address], [address] [place] [address], [facility] 02/11/2019 14:05:52 04/12/20 13 Colonoscopy completed Mini Freire MD [address], [address] [place] [address], [facility] 02/11/2019 14:04:42 05/02/19 09 Cataract Surgery completed Mini Freire MD [address], [address] [place] [address], [facility] 12/27/2014 10:59:54 Knee Surgery completed Mini Freire MD [address], [address] [place] [address], [facility] 01/15/2016 10:49:41 Appendectomy completed Mini Freire MD [address], [address], [facility] 01/15/2016 11:05:11 Tonsillectomy completed [facility] 06/15/2011 11:38:57 Other completed [facility] 06/15/2011 11:38:57 Imaging Results None recorded. Procedure Notes None recorded. Medical Equipment None Reported. Allergies Allergen ID Allergen Name Allergen Category Reaction Reaction Severity Criticality Documentation Date Start Date Code Code System Note Provider Name and Address Organization Details Recorded Time 55614 Augmentin medicatio n rash moderate high 03/10/20232022 12024 2 RxNorm Mini Freire MD [address], [address] , [place] - [facility]. 3 14:53:39 Medications Name Sig Start Date [...] 1 CAPSULE EVERY MORNING 09/12 completed Sun, Tues, Thurs, Sat Only take if needed Not Available [...] ne propionat e 50 mcg/actua tion nasal spray,latoya pension Nelson 1 spray every day by intranas al [...] completed Not Available Not Available Not Available [facility] DM 10 mg-100 mg/5 mL oral syrup TAKE 10 ML BY MOUTH EVERY 4 HOURS NEEDED 02/08 completed Not Available Not Available Not Available Fish Oil 09/12 completed Not Available Not Available Not Available Centrum Silver 1 po daily 02/11 completed Not Available Not Available Not Available Vitamin D3 2000 IU po daily or as directed 02/23 /2024 completed Not Available Not Available Not Available [...] Not Avai lable glucosami ne 500 mg-chondr oit-[facility] no1 416.6 mg-C 20 mg-peggy-b osw tablet [...] Available Not Av ailable Not Available Fluzone 3142-0813 (PF) 45 mcg (15 mcg x 3)/0.5 mL intramusc ular syringe active Not Available Not Available Not Available ferrous gluconate 324 mg (37.5 mg iron) tablet Take 1 tablet every day by oral route at bedtime. 07/28 completed Not Available Not Available Not Available Fluzone 7417-6282 (PF) 45 mcg (15 mcg x 3)/0.5 mL intramusc ular syringe active Not Available Not Available Not Available Prepopik 10 mg-3.5 gram-12 gram oral powder packet 04/21 completed Not Available Not Available Not Available Fluvirin 0410-0388 (PF) 45 mcg (15 mcg x3)/0.5 mL [...] Updated DateTime 5 165.1 cm 34.6 kg/m2 64950.2 1 g 80 /min 94 % 94 % 97.5 [degF] 110 mm[Hg] 65 mm[Hg] [facility] 5 14:40:27 Social History Question Answer Notes LastModified by Organization Details LastModified Time Tobacco Smoking Status Former Smoker Not Available [facility] 02/26/2020 03:11:18 Do You Have An Advance Directive? Yes [id number] Information not available 02/26/2020 Auto Related Injury? No Information not available 06/15/2011 Is Blood Transfusion Acceptable In An Emergency? Yes [id number] Information not available 02/26/2020 What Is Your Level Of Caffeine Consumption? Moderate [id number] Information not available 02/26/2020 How Much Tobacco Do You Chew? None [id number] Information not available 02/26/2020 Diabetes No Information not available 06/15/2011 What Type Of Diet Are You Following? 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 No Information not available 06/15/2011 When Did You Quit Smoking? 16+yearssin trudy drake Information not available 06/13/2020 High Blood Pressure No Information not available 06/15/2011 High Cholesterol Yes Information not available 06/15/2011 Live Alone Or With Others? With Others Information not available 06/15/2011 Marital Status Informatio n not available 06/15/2011 What Was The Date Of Your Most Recent Tobacco Screening? 02/13/2024 Information not available 02/13/2024 How Many Children Do You Have? 3 [id number] Information not available 02/26/2020 What Is Your Relationship Status? [email or web address] Information not available 02/13/2024 Are You Passively Exposed To Smoke? No Information not available 06/15/2011 How Much Tobacco Do You Smoke? No Smoked About 10 Years And Quit In 1999 Information not available 02/08/2023 General Stress Level Low Information not available 06/15/2011 How Many Years Have You Smoked Tobacco? 10 [id number] Information not available 02/26/2020 Sex: Unknown Functional Status Question Answer Note LastModified by Organizat ion Details LastModified Time What is your level of alcohol consumption? None [id number] Information not available 02/26/2020 Are you currently employed? Yes [id number] Information not available 02/26/2020 Are you able to care for yourself? Yes [id number] Information not available 02/26/2020 What is your occupation? Other [employer] Information not available 10/04/2024 What is your exercise level? Moderate senior exercise classes two days week [id number] Information not available 02/26/2020 Mental Status None recorded. Family History Relationship Description Onset Age of this Age Resolved Age Notes LastModified by Organization Details LastModified Time Father Diabetes mellitus colon cancer (previ ously record ed as Diabet es) [facility] Not available 09/01/2015 10:13:47 Medical History Condition Response Coronary Artery Disease N Gout N Blood Diseases N Kidney Stones N Hyperthyroidism N Hypothyroidism N Depression N [...] high-dose, trivalent, PF 7 completed Not Available [facility] 05/19/2019 02:12:13 Influenza, split virus, trivalent, preservative 1 completed Not Available [facility] 12/21/2019 17:52:26 zoster live 0 completed Not Available [facility] 12/21/2019 17:52:26 Influenza, split virus, trivalent, preservative 2 completed Not Available [facility] 12/21/2019 17:52:26 Influenza, split virus, trivalent, preservative 3 completed Not Available [facility] 12/21/2019 17:52:26 Influenza, high-dose, trivalent, PF 8 completed Not Available [facility] 05/19/2019 02:12:13 Influenza, high-dose, trivalent, PF 9 completed Not Available [facility] 05/19/2019 02:12:11 Influenza, high-dose, quadrivalent, PF 1 completed Mini Freire MD [address] [facility], [facility] [address], [place], [address], [facility] 01/04/2021 15:13:33 Influenza, high-dose, quadrivalent, PF 1 completed [facility] 01/08/2021 08:56:50 Pneumococcal conjugate PCV 13 5 completed Not Available [facility] 12/21/2019 17:52:26 Influenza, high-dose, quadrivalent, PF 2 completed Mini Freire MD [address] [facility], [facility] [address], [place], [address], [facility] 01/21/2022 13:18:40 Tdap 2 completed Not Available [facility] 05/19/2019 02:12:10 Influenza, high-dose, quadrivalent, PF 3 completed Not Available [facility] 01/27/2023 10:48:05 pneumococcal polysaccharide PPV23 9 completed Not Available [facility] 12/21/2019 17:52:26 Influenza, high-dose, trivalent, PF 6 completed Not Available [facility] 12/21/2019 17:52:26 pneumococcal polysaccharide PPV23 6 completed Not Available [facility] 12/21/2019 17:52:26 Influenza, high-dose, trivalent, PF 4 completed Not Available [facility] 02/06/2024 10:41:32 COVID-19, mRNA, LNP-S, PF, laverne-sucrose, 30 mcg/0.3 mL 4 completed Mini Freire MD [address] [address], [place], [address], [facility] 02/14/2024 06:48:50 zoster, unspecified formulation 8 completed Not Available [facility] 12/21/2019 17:52:26 Hep A, adult 8 completed Not Available [facility] 12/21/2019 17:52:26 zoster, unspecified formulation 9 completed Not Available [facility] 12/21/2019 17:52:26 Hep A, adult 9 completed Not Available [facility] 12/21/2019 17:52:26 Influenza, high-dose, quadrivalent, PF 1 completed Mini Freire MD [address] [address], [place], [address], [place] [facility] 01/04/2021 15:11:30 COVID-19, mRNA, LNP-S, PF, 30 mcg/0.3 mL dose 1 completed Mini Freire MD 2017 [facility] [address], [place], [address], [place] [facility] 01/18/2022 13:52:37 COVID-19, mRNA, LNP-S, PF, 30 mcg/0.3 mL dose 2 completed Mini Freire MD [address] [address], [place], [place], [address] [place] [address], [place] [facility] 01/18/2022 13:52:49 COVID-19, mRNA, LNP-S, PF, 30 mcg/0.3 mL dose 1 completed Mini Freire MD [address], [address] [place] [address], [place] [facility] 01/18/2022 13:53:07 COVID-19, mRNA, LNP-S, PF, 30 mcg/0.3 mL dose 1 completed Mini Freire MD [address], [address] [place] [address], [place] [facility] 01/18/2022 13:53:27 COVID-19, mRNA, LNP-S, PF, 30 mcg/0.3 mL dose 2 completed Mini Freire MD [address], [address] [place] [address], [place] [facility] 02/23/2022 15:40:55 Tdap 3 completed Mini Freire MD [address], [address] [place] [address], [facility] 02/28/2023 12:13:45 Respiratory syncytial virus (RSV) vaccine, unspecified 3 completed Mini Freire MD [address], [address] [place] [address], [place] [facility] 02/28/2023 12:14:55 COVID-19, mRNA, LNP-S, bivalent, PF, 30 mcg/0.3 mL dose 3 completed Mini Freire MD [address], [address] [place] [address], [place] [facility] 06/24/2023 12:36:21 Past Encounters Encounter ID Performer Location Encounter Start Date Encounter Closed Date Diagnosis/Indication Diagnosis SNOMED-CT Code Diagnosis ICD10 Code Diagnosis Note [id number] Mini Freire MD [facility] [address] [facility], [address] [address] 08/30/2024 14:38:18 09/03/2024 08:58:14 Seizure disorder 024536990 G40.909 Essential hypertension 86488880 I10 Acquired hypothyroidism 173191432 E03.9 Belinda an gular cheilitis 120507835 B37.83 Candidal intertrigo 2661 61187 B37.2 Angular cheilitis 302784 005 K13.0 Pressure i njury of sacral region of back stage I 3436453421 5101 L89.151 Allergic rhinitis 820699 04 J30.9 Health Concerns Section Related Observation LastModified by Organization Detai ls LastModified Time None Recorded Concern Status LastModified by Organization Details LastModified Time None Recorded Payers Encounter Date Sequence Insurance Name Policy Number Policy Padilla Covered Member ID Padilla Member ID Guarantor Name 08/30/2024 1 [facility] MED[facility] (MEDICARE REPLACEMENT PPO) [id number] Christian Fuentes [id number] Christian Fuentes Notes Date Note Type Note Provider Name and Address Organization Details Recorded Time 08/30/2024 text/html home physical therapy is now [...] 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 Mini Freire MD [address] [facility], [address], [place], [address], [facility] 08/31/2024 13:50:19
--- OUTSIDE RECORDS SUMMARY | 2024-10-24 07:16 | XMS_ITS | Encounter Summary ---
Author Organization [employer] Address [address] [place] [id number] Care Team Providers Care Trustee Of Estate Name Role Phone Unavailable Primary Care Provider Unavailabl e Encounter Details Date Type Department Care Team (Late st Contact Info) Description 11/28/2018 Transcribed Document [facility] [place] [address] [place] [address] ProviderDarwin MD [address] [place] [address] Social History Tobacco Use Types [...] Conversion Note - Darwin ProviderMD - 11/28/2018 1:33 PM CDT UM Authorization Entered On: 11/28/2018 13:33 EDT Performed On: 11/28/2018 13:33 EDT by JONY PALOMO RN-Utilization Review Primary Insurance Authorization Authorization and Policy Numbers : Insurance 1 Health Plan: [employer] Policy Number: [id number] Authorization Number: [id number] Insurance Primary Name : [facility] Medicare Authorization Status-Primary : Admit approved Reference Number-Primary : [id number] Number of Days Authorized-Primary : 2 Authorized Service Begin Date-Primary : 11/26/2018 EDT Authorized Service End Date-Primary : 11/27/2018 EDT Authorization Comments-Primary : Uploaded clinicals to [facility] Medicare via [employer] for continuing stay. Historical Authorization Comments-Primary : Comment 1: [facility] approved per fax back -- nrd 11/28 (VANDANA CRUZ RN-Utilization Review 11/27/2018 16:05) Comment 2: Uploaded clinicals to [facility] Medicare via [employer]. (JONY PALOMO RN-Utilization Review 11/27/2018 09:20) JONY PALOMO RN-Utilization Review - 11/28/2018 13:33 EDT documented in this encounter Plan of Treatment Not on file documented as of this encounter Visit Diagnoses Not on filedocumented in this encounter
--- OUTSIDE RECORDS SUMMARY | 2024-10-24 07:16 | XMS_ITS | Encounter Summary ---
Author Organization [employer] Address [address] [place] [id number] Care Team Providers Care Radiation Officer Name Role Phone Unavailable Primary Care Provider Unavailabl e Encounter Details Date Type Department Care Team (Late st Contact Info) Description 11/27/2018 Transcribed Document [facility] [place] [address] [place] [address] ProviderDarwin MD [address] [place] [address] Social History Tobacco Use Types [...] Conversion Note - Historical ProviderMD - 11/27/2018 8:02 AM CDT Patient: CLAUDINE FUENTES Age: 78 Years Sex: Male : 1940 POD#1 gamma nail to left hip fx. had episodes of right thigh cramps - resolved this AM. denies CP,SOB,calf pain. has huang removed no void as yet. has been up to chair last night has eaten BLE - NVI/negative miguel's. left hip incision area clear/dressing intact. s/p gamma nail placement for left hip fx. - stable rehab arrange home health PT or rehab - per pt. need will need home equipment - W/c with leg attachments, bedside commode,walker, chair shower f/u ortho 2 weeks after d/c Electronically signed by Marybeth [facility] Conversion Cutter Hot Knife Ace at 08/17/2022 10:06 AM CDT documented in this encounter Plan of Treatment Not on file documented as of this encounter Visit Diagnoses Not on filedocumented in this encounter
--- OUTSIDE RECORDS SUMMARY | 2024-10-24 07:16 | XMS_ITS | Encounter Summary ---
Author Organization [employer] Address [address] [place] [address] Care Team Providers Care Panel Wirer Name Role Phone Unavailable Primary Care Provider Unavailabl e Encounter Details Date Type Department Care Team (Late st Contact Info) Description 11/27/2018 Transcribed Document [facility] [place] [address] [place] [address] ProviderDarwin MD [address] [place] [address] Social History Tobacco Use Types [...] Conversion Note - Historical ProviderMD - 11/27/2018 9:20 AM CDT rn burn Form Entered On: 11/27/2018 9:20 EDT Performed On: 11/27/2018 9:20 EDT by JONY PALOMO RN-Utilization Review UM Additional Information UM Additional Comment : Request for inpt stay. Clinicals to follow. ICD 10: S72.002A JONY PALOMO RN-Utilization Review - 11/27/2018 9:20 EDT documented in this encounter Plan of Treatment Not on file documented as of this encounter Visit Diagnoses Not on filedocumented in this encounter
[2024-10-24 07:28] LABS: Basophils % 0.1 % (0.1-2.0); Hematocrit 40.4 % (42.0-52.0); Hemoglobin 13.7 g/dL (14.1-18.0); Immature Granulocytes # 0.15 10^3uL; Immature Granulocytes % 0.7 %; Lymphocytes # 1.4 K/mm3 (0.7-4.5); Lymphocytes % 6.3 % (10-50); Mean Corpuscular HGB Conc 33.9 g/dL (31.8-35.4); Mean Corpuscular Hemoglobin 31.6 pg (27.0-31.2); Mean Corpuscular Volume 93.1 fl (80-94); Mean Platelet Volume 10.8 fl (7.4-10.4); Monocytes # 1.5 K/mm3 (0.1-1.0); Monocytes % 6.9 % (1.7-9.3); Neutrophils # 18.4 K/mm3 (1.8-7.8); Nucleated Red Blood Cells # 0 10^3/uL; Nucleated Red Blood Cells % 0 %; Platelet Count 202 K/mm3 (142-424); Red Blood Count 4.34 M/mm3 (4.60-6.20); Red Cell Distribution Width-SD 54.9 fL; White Blood Count 21.4 K/mm3 (4.8-10.8)
[2024-10-24 07:30] LABS: VBG Base Excess 1.2 mmol/L (-2.4-2.3); VBG HCO3 24.8 mmol/L (23-30); VBG Oxygen Saturation 79.1 % (50-70); VBG PH 7.47 mmol/L (7.31-7.41); VBG PO2 43.7 mmol/L (28-40); VBG Total CO2 25.9 mmol/L (23-27)
[2024-10-24 07:38] LABS: Albumin Level 3.1 g/dl (3.5-5.0); Chloride 93 mmol/L (98-107); Potassium 4.3 mmoL/L (3.5-5.1); Sodium 131 mmol/L (136-145)
[2024-10-24 07:41] LABS: Alanine Aminotransferase 29 U/L (12-78); Albumin/Globulin Ratio 0.9 (1.1-1.8); Alkaline Phosphatase 68 U/L (38-126); Anion Gap 15.3 mEq/L (5-15); Aspartate Amino Transferase 58 U/L (17-59); Bilirubin,Total 0.6 mg/dl (0.2-1.3); Blood Urea Nitrogen 51 mg/dl (9-20); Calcium 8.7 mg/dl (8.4-10.2); Carbon Dioxide 27 mmol/L (22.0-30.0); Creatinine Clearance Estimated 50 mL/min (50-200); Estimated Glomerular Filt Rate 45 ml/min (>60); GFR (African American) 54 ML/MIN (>60); Globulin 3.6 g/dL (1.3-3.2); Glucose 114 mg/dl (74-100); Magnesium 2.4 mg/dl (1.6-2.3); Total Protein,Serum 6.7 g/dl (6.3-8.2)
--- NOTE | 2024-10-24 07:41 | HMH.EDGENADL ---
Discharge Plan Clinical Impressions Clinical Impression: CHF exacerbation, Acute hypoxemic respiratory failure, Left lower lobe consolidation, Sepsis Instructions Patient Instructions: DI for Acute Abdominal Pain Print Language Print Language: Namibian Discharge ED Provider: Erick Burgess General Adult HPI General Chief complaint: Abdominal Pain Stated complaint: chest pain Time Seen by Provider: 10/24/24 07:13 Mode of Arrival: EMS Source of Information: EMS Description of Symptoms (Recalled from ER Triage Doc. by RN): patiient states he has had abdominal pain for several days History of Present Illness HPI narrative: Please note that above description of symptoms, in this electronic medical record under categorization of recalled from ER triage doctor by RN are reflective of an initial nursing assessment, however, is not reflective of my full history and physical exam that was personally taken and clarified. Consequentially, this preceding description of symptoms, which may include the patient's categorized chief complaint in the EMR, do not reflect my personal clinical impression, and the ultimate description of history of present illness and patient stated complaints should be deferred to this section of the note. Unless stated otherwise or congruent with this section of the note, additional signs, symptoms, or incongruence should be interpreted as inaccurate with my clinical impression. Related Data Allergies Allergy/AdvReac Type Severity Reaction Status Date / Time Penicillins Allergy Rash Verified 10/24/24 09:18 [facility] Disclaimer: The information contained in this section may have been updated after the patient was seen, as this information can be updated by other users. Social History Smoking Status: Never smoker alcohol intake: never current occupational status: retired Travel in the last 8 weeks?: None ROS Obtained: Yes All systems reviewed & no additional complaints except as documented Physical Exam General General appearance: alert and obese Comment: Pale, cool Head Head exam: atraumatic and normocephalic Eye Eye exam: Present normal appearance, PERRL and EOMI ENT ENT exam: Present mucous membranes dry Neck Neck exam: Present normal inspection, full ROM and trachea midline Respiratory Respiratory exam: Present normal lung sounds bilaterally, respiratory distress and accessory muscle use (Patient has subcostal retractions); Absent wheezes, stridor or prolonged expiratory phase Cardiovascular Cardiovascular exam: Present tachycardia, irregular rhythm, normal heart sounds and other (Pulses equal symmetric in upper and lower extremities) Abdominal Exam Abdominal exam: Present soft and distention; Absent tenderness, guarding, rebound, rigidity or pulsatile mass Extremities Exam Extremities exam: Absent edema Neurological Exam Neurological exam: Present alert and CN II-XII intact; Absent motor sensory deficit Skin Skin exam: Present warm and dry; Absent diaphoresis or erythema Medical Decision Making Medical Records Medical records reviewed: Yes I reviewed the patient's medical records. Screening: Per USPSTF and CDC recommendations, given the prevalence of disease in our region, it is our hospital?s policy to screen for HIV and viral Hepatitis for all patients aged 18 and over and those with ongoing risk factors. Sher Inquiry Pt receiving controlled substance: No Sher was queried for this patient: No Vital Signs: 10/24/24 07:18 10/24/24 08:00 10/24/24 08:30 Temperature 98.6 F Temperature Source Oral Pulse Rate 114 H 107 H Pulse Rate [Right Radial] 127 H Respiratory Rate 22 18 20 Blood Pressure 95/77 L 107/67 L Blood Pressure [Right Arm] 158/86 H Blood Pressure Mean 81 72 Blood Pressure Mean [Right Arm] 110 Blood Pressure Source [Right Arm] Automatic Cuff Blood Pressure Position [Right Arm] Supine 02 Sat by Pulse Oximetry 87 L 96 96 Oxygen Delivery Method Room Air Oxygen Flow Rate (LPM) 10/24/24 09:09 10/24/24 09:12 Temperature Temperature Source Pulse Rate 82 70 Pulse Rate [Right Radial] Respiratory Rate 18 18 Blood Pressure 91/66 L 93/68 L Blood Pressure [Right Arm] Blood Pressure Mean 73 75 Blood Pressure Mean [Right Arm] Blood Pressure Source [Right Arm] Blood Pressure Position [Right Arm] 02 Sat by Pulse Oximetry 95 95 Oxygen Delivery Method Nasal Cannula Nasal Cannula Oxygen Flow Rate (LPM) 2 2 Lab Data Lab Results 10/24/24 07:15: VBG pH 7.47 H, VBG pCO2 35.0, VBG pO2 43.7 H, VBG HCO3 24.8, VBG Total CO2 25.9, VBG O2 Saturation 79.1 H, VBG Base Excess 1.2, VBG Lactic Acid 2.0 10/24/24 07:20: WBC 21.4 H*, RBC 4.34 L, Hgb 13.7 L, Hct 40.4 L, MCV 93.1, MCH 31.6 H, MCHC 33.9, RDW 16.0, Plt Count 202, MPV 10.8 H, Neut % (Auto) 86.0 H, Lymph % (Auto) 6.3 L, [place] % (Auto) 6.9, Eos % (Auto) 0.0 L, Baso % (Auto) 0.1, Neut # (Auto) 18.4 H, Lymph # (Auto) 1.4, [place] # (Auto) 1.5 H, Eos # (Auto) 0.0, Baso # (Auto) 0.0, PT 14.0 H, INR 1.28 H, APTT 27.2, Sodium 131 L, Potassium 4.3, Chloride 93 L, Carbon Dioxide 27, Anion Gap 15.3 H, BUN 51 H, Creatinine 1.50 H, Estimated Creat Clear 50, Estimated GFR 45 L, Est GFR ( Amer) 54 L, Glucose 114 H, Lactate 1.4, Calcium 8.7, Magnesium 2.4 H, Total Bilirubin 0.6, AST 58, ALT 29, Alkaline Phosphatase 68, Troponin I 0.04 H, NT-Pro-B Natriuret Pep 18724 H, Total Protein 6.7, Albumin 3.1 L, Globulin 3.6 H, Albumin/Globulin Ratio 0.9 L, Lipase 130, TSH 7.32 H, Thyroxine (T4) 8.2 10/24/24 07:51: Urine Color Yellow, Urine Appearance Clear, Urine pH 6.0, Ur Specific [place] 1.010, Urine Protein Negative, Urine Glucose (UA) Negative, Urine Ketones Negative, Urine Blood Negative, Urine Nitrate Negative, Urine Bilirubin Negative, Urine Urobilinogen 0.2, Ur Leukocyte Esterase Negative, Urine RBC None, Urine WBC Occasional, Ur Squamous Epith Cells Occasional, Urine Bacteria None 10/24/24 07:20 10/24/24 07:20 Orders (Tests/Meds): ED MEDICATIONS Generic Name Dose Route Start Last Admin Trade Name Freq PRN Reason Stop Dose Admin Vancomycin/PEG/NADA/Lysine/Water 1.75 gm in 350 mls @ 175 mls/hr 10/24/24 07:45 10/24/24 09:21 Vancomycin 1.75gm/350ml (Peg) Premix IV 10/24/24 09:44 175 mls/hr ONCE ONE Administration Cefepime HCl 2 gm/ Sodium 100 mls @ 200 mls/hr 10/24/24 09:39 Chloride IV 10/24/24 10:08 ONCE ONE Discontinued Medications Generic Name Dose Route Start Last Admin Trade Name Meghana PRN Reason Stop Dose Admin Furosemide 80 mg 10/24/24 09:00 10/24/24 09:08 Furosemide 100mg/10ml Vial IV 10/24/24 09:01 80 mg ONCE ONE Administration Piperacillin Sod/Tazobactam 100 mls @ 200 mls/hr 10/24/24 07:35 10/24/24 08:03 Sod 4.5 gm/ Sodium Chloride IV 10/24/24 08:04 200 mls/hr ONCE ONE Administration Lactated Ringer's 2,120 mls @ 1,060 mls/hr 10/24/24 07:35 10/24/24 08:03 Lactated Ringer's 1000 Ml Bag 30 ml/kg infuse over 2 hr (2120 ml) 10/24/24 09:34 1,060 mls/hr IV Administration .Q2H ONE Iopamidol 80 ml 10/24/24 08:30 10/24/24 08:32 Iopamidol-370 (76%);100ml Bottle IV 10/24/24 08:31 80 ml ONCE ONE Administration Miscellaneous 1 each 10/24/24 07:45 Vancomycin Consult Request NOTAPPLIC 11/23/24 07:44 [facility] Sodium Chloride 50 ml 10/24/24 08:30 10/24/24 08:31 0.9 % Sodium Chloride 50 Ml Vial IV 10/24/24 08:31 50 ml ONCE ONE Administration Sodium Chloride 10 ml 10/24/24 08:30 10/24/24 08:31 Sodium Chloride 0.9% 10ml Syr (Rad Only) IV 10/24/24 08:31 10 ml ONCE ONE Administration ORDERS Category Date Time Status CT angio abdomen pelvis Stat Cat Scan 10/24/24 07:13 Completed CTA Chest [CT angio chest - dissection] Stat Cat Scan 10/24/24 07:13 Completed Complete Blood Count Auto Diff Stat Lab 10/24/24 07:20 Completed Comprehensive Metabolic Panel Stat Lab 10/24/24 07:20 Results Lactic Acid Stat Lab 10/24/24 07:20 Completed Lipase Stat Lab 10/24/24 07:20 Completed Magnesium Stat Lab 10/24/24 07:20 Results NT Pro Brain Natriuretic Pep. Stat Lab 10/24/24 07:20 Results PT INR [Prothrombin Time INR] Stat Lab 10/24/24 07:20 Completed PTT [Activated Partial Thrombo Time] Stat Lab 10/24/24 07:20 Completed Procalcitonin Stat Lab 10/24/24 07:20 Results T4 (Thyroxine) Stat Lab 10/24/24 07:20 Results TSH [Thyroid Stimulating Hormone] Stat Lab 10/24/24 07:20 Results Troponin I Q3H Lab 10/24/24 10:15 Ordered Troponin I Q3H Lab 10/24/24 13:15 Ordered Troponin I Stat Lab 10/24/24 07:20 Results Urinalysis and Microscopic Stat Lab 10/24/24 07:51 Completed Blood Culture Stat Micro 10/24/24 07:37 Received Venous Blood Gas Stat RT 10/24/24 07:15 Completed HEART Score History (anamnesis): Slightly suspicious ECG: Non-specific disturbance Age: >65 years Risk factors: 3 or more risk factors Troponin: 1-3x normal limit HEART Score: 6 Medical Decision Narrative: 84-year-old male presenting with multiple complaints. Patient has baseline dementia and otherwise, baseline unknown to us. [facility] staff did not offer much help, per EMS. EMS was called by group home staff because patient was complaining of chest pain earlier today. Patient does not remember complaining of chest pain, but states when he gets here that he has abdominal pain. States that it is mild to moderate, difficult to discern any other history other than this due to inattention. Does not state that it radiates, no vomiting or diarrhea, no obvious fevers or chills. Per group home paperwork, patient has a history of A-fib on Eliquis, hypertension, hyperlipidemia, diabetes, seizure disorder. Has also had appendectomy and has midline abdominal scar presumably from this. Patient does not remember the surgeries from. Also has reported history of decubitus ulcer on paperwork. History was obtained via conversation with EMS, outside facility chart review. On arrival, patient hemodynamically stable, alert, oriented only to person, appropriate, GCS 14, moving all extremities spontaneously, pupils equal and reactive to light. Full physical exam performed and significant for acute on chronically ill-appearing male. Pale, cool. Increased work of breathing with subcostal retractions. Lungs are clear anteriorly and posterior bilaterally. Cardiac exam without murmurs gallops or rubs. No lower extremity edema. Moving all extremities spontaneously. Patient's sacral decubitus ulcer minimal, if present at all. Small amount of red in the gluteal cleft, but no evidence of wound breakdown. Does nola. Differential includes sepsis, pneumonia, urinary tract infection, bowel obstruction, bowel perforation, CHF exacerbation, ACS, FL, mesenteric ischemia, among others. Patient placed on continuous cardiac monitoring and continuous pulse ox with initial blood pressure 158/86, heart rate 127, saturation 87% on room air. Placed on 2 L nasal cannula and patient in the mid 90s. Independent interpretation of EKG shows atrial fibrillation about 132 bpm. QRS narrow at 84, QTc within normal limits at 432. Patient does have ST depressions and T wave inversions throughout nearly all leads without evidence of elevations. Patient was given fluid bolus, empiric antibiotics for symptomatic management and correction of underlying abnormalities. Workup independently interpreted and significant for leukocytosis of 21,000, but patient also on steroid for pneumonia. It is neutrophilic. Coags nonactionable. VBG nonactionable as well. Patient's chemistry with hyponatremia 131 and what appears to be FREDY with creatinine 1.5 and BUN 51. Magnesium normal at 2.4. Initial troponin elevated 0.04 and BNP elevated at 12,600. On independent interpretation of imaging, patient has bilateral pleural effusions groundglass opacities, edematous fissures consistent with CHF. Patient also appears to have a consolidation in his left lower lobe. Mildly distended colon, but no evidence of perforation or acute intra-abdominal abnormality otherwise. see radiology read for full review of final results. Heart score 6. On reevaluation, patient still resting comfortably, given 80 mg IV Lasix. Tissue perfusion reassessment performed within 3 hours, patient mentating at his baseline on arrival, following commands, good capillary refill and hemodynamically stable. Blood pressure remains a little low 103/69. Spoke to family, outside hospital records were obtained most recently, patient had BNP 3000, white blood cell count of 14,000. Today, white count even more significantly evaded at 21,000 and BNP 12,000. Given patient presentation, workup, history, this most likely represents pneumonia, CHF exacerbation. Because patient high risk for clinical decompensation, deemed appropriate for inpatient admission. Results were relayed to patient who voiced understanding and patient was agreeable to inpatient admission and management. Patient was admitted to the hospital for further definitive management. Acquisition Advisor disclaimer Much of this encounter note is an electronic global marketing specialist spoken language to printed text. Electronic global marketing specialist of the spoken language may permit errors. Although I have reviewed the note, some errors may still exist. Critical Care Critical Care Time Critical Care Time: Yes (cardiac, respiratory) Attestation: On 10/24/24, the high probability of a clinically significant, sudden or life threatening deterioration of the following system(s) required my full and direct attention, intervention and personal management. The time I documented below is in addition to time spent performing reported procedures but includes the following listed in this critical care notation. Total Time Total Critical Care Time: 35
[2024-10-24 07:42] LABS: Lactic Acid 1.4 mmol/L (0.7-2.1); Lipase 130 U/L (23-300)
[2024-10-24 07:52] LABS: NT Pro Brain Natriuretic Pep. 12600 pg/mL (0-450)
[2024-10-24 07:54] LABS: Troponin I 0.04 ng/ml (0.00-0.034)
[2024-10-24 07:55] LABS: Microscopic, Urine URINE MICROSCOPIC (MICROSCOPIC)
[2024-10-24 07:58] LABS: Appearance,Urine CLEAR (Clear); Bilirubin,Urine Negative (Negative); Blood, Urine Negative (Negative); Color,Urine YELLOW (Yellow); Glucose,Urine (UA) Negative (Negative); Ketones,Urine Negative (Negative); Leukocyte Esterase,Urine Negative (Negative); Nitrate,Urine Negative (Negative); Protein,Urine Negative (Negative); Urobilinogen,Urine 0.2 EU/dl (0.2)
[2024-10-24 07:58] LABS: T4 (Thyroxine) 8.2 ug/dl (5.53-11.0)
[2024-10-24] MEDS: PIPERACILLIN/TAZO 4.5 GM in 0.9 % SODIUM CHLORIDE 100 ML IV (08:03)
[2024-10-24] MEDS: LACTATED RINGERS 1000ML 2,120 ML 1060 ML IV (08:03)
[2024-10-24 08:12] LABS: Thyroid Stimulating Hormone 7.32 uIU/mL (0.465-4.68)
[2024-10-24 08:13] LABS: Activated Partial Thrombo Time 27.2 seconds (22.8-30.6); INR 1.28 (0.9-1.1)
[2024-10-24 08:19] LABS: Squamous Epithelial Cell,Urine Occasional #/hpf (0-5); WBC,Urine Occasional #/hpf (0-3)
--- NOTE | 2024-10-24 08:30 | PC.NURSE ---
fluids were stopped shortly after being started due to fluid overload and chf
[2024-10-24] MEDS: SODIUM CHLORIDE 0.9% 10ML SYR (RAD ONLY) 10 ML IV (08:31)
[2024-10-24] MEDS: 0.9 % SODIUM CHLORIDE 50 ML VIAL IV (08:31)
[2024-10-24] MEDS: IOPAMIDOL-370 (76%);100ML BOTTLE 80 ML IV (08:32)
--- NOTE | 2024-10-24 08:35 | PC.NURSE ---
Called [facility] for medical records. They stated that they are sending them.
--- NOTE | 2024-10-24 08:51 | PC.NURSE ---
Medical records from [facility] were received at this time.
--- NOTE | 2024-10-24 08:54 | PC.NURSE ---
Medical records from [facility] were given to Dr. Burgess
[2024-10-24] MEDS: FUROSEMIDE 100MG/10ML VIAL 80 MG IV (09:08)
--- NOTE | 2024-10-24 09:20 | PC.NURSE ---
pt only got 1L of sepsis bolus due to verbal order. The pt is fluid overloaded.
[2024-10-24] MEDS: VANCOMYCIN/WATER FOR INJ (PEG) 1.75 GM/350 ML PIGGYBACK IV (09:21)
--- NOTE | 2024-10-24 10:18 | PC.NURSE ---
Still waiting to hear back from about possible admission.
--- NOTE | 2024-10-24 10:34 | PC.NURSE ---
obtained trop and sent to lab
--- NOTE | 2024-10-24 10:37 | PC.NURSE ---
I notified of the need for a bed to admit the pt.
[2024-10-24 10:57] LABS: Procalcitonin 0.496 ng/mL (0.0-2.0)
[2024-10-24 11:09] LABS: Troponin I 0.03 ng/ml (0.00-0.034)
--- NOTE | 2024-10-24 11:11 | PC.NURSE ---
Alf DE LA O called report to Ade DE LA O
--- NOTE | 2024-10-24 11:23 | CA_ITS ---
APPROVED REPORT EXAM: Comprehensive 2D, Doppler, and color-flow Echocardiogram Campus Recruiting Coordinator: ANDRES Munoz, RVS Ht: 5 ft 7 in Wt: 204lbs BSA: 2.04 HR: 130 bpm BP: 93/68 mmHg Rhythm: Atrial Fibrillation Indications: CP, Afib, Dementia, Sepsis, Anemia, CHF, Pericardial effusion per CTA chest-10/24/24 Echo Enhancing Agent Comments: TDS: Extremely limited windows 2D Dimensions IVSd 0.76 cm M: 0.6-1.2 LA Volume 53.60 mL PWd 0.71 cm M: 0.6 - 1.2 LA Volume Index 26.543784 mL/m2 (M/F) 16-34 LVDd 3.15 cm M: 4.2 - 5.9 EF AP4 50.70 % Left Atrium 3.76 cm M: 3.0 - 4.0 GL Strain -10.3 % M-Mode Dimensions LA Diam 3.62 cm (1.9-4.0) LVDd 4.36 cm (3.5-5.7) LVDs 3.08 cm (3.5-5.7) EF (Teich) 56.50% FS 29.40% EDV (Teich) 85.80 mL TAPSE 1.09 (<1.7) ESV (Teich) 37.30 mL LV Diastology E Decel Time 150 (160-240 msec) E/A Ratio 0.86 MED A' 4.20 cm/s Aortic Valve PRADIP Index 0.92 cm2/m2 AoV Peak Noam. 71.0 (50-130 cm/s) AO Peak GR. 2.00 mmHg AO Mean GR. 1.00 (<5 mmHg) AO VTI 9.2 (18-25 cm) PRADIP (VTI) 1.92 (2.5-4.5 cm2) Mitral Valve MV E Max Noam. 70.0 (40-130 cm/s) MV A Velocity 82.0 (40-130 cm/s) E/A Ratio 0.86 MV PHT 44.0 ms Left Ventricle The left ventricle is normal size. The left ventricular systolic function is hyperdynamic. There is increased LV wall thickness. No regional wall motion abnormalities are noted. Diastolic function is indeterminate. LVEF is 70%. Right Ventricle Right ventricle is mildly dilated. The right ventricular systolic function is normal. Atria Left atrium is mildly dilated. Right atrium is mildly dilated. There is no Doppler evidence of interatrial shunt. Aortic Valve Aortic valve is mildly thickened. There is no aortic valvular stenosis. No aortic regurgitation is present. Mitral Valve The mitral valve is normal in structure. No evidence of mitral valve stenosis. Trace mitral regurgitation. Tricuspid Valve Tricuspid valve is grossly normal in structure and function. Trace tricuspid regurgitation. There is insufficient TR jet to estimate RVSP. Pulmonic Valve The pulmonary valve is normal in structure. Trace pulmonic regurgitation. Great Vessels The aortic root is normal in size. IVC is normal in size and collapses >50% with inspiration. Pericardium There is a trivial, circumferential pericardial effusion present. No clear echo indications of tamponade. Other Information Study Quality: Fair Conclusion Hyperdynamic LV systolic function (LVEF 70%). Mild RV dilation. Mild biatrial dilation. No significant valvular stenosis or regurgitation. Trivial, circumferential pericardial effusion present. No clear echo indications of tamponade. Electronically signed by : Eva Deal MD 10/24/2024 14:59:57
--- NOTE | 2024-10-24 11:29 | PC.NURSE ---
arrived by stretcher from ED
--- NOTE | 2024-10-24 11:45 | EXP.PHA.CONS ---
Pharmacy Consult Date: 10/24/24 Time: 11:46 Referring provider: CANDACE CALHOUN APRN Reason for Consult:: VANCOMYCIN DOSING CONSULT Allergies Allergy/AdvReac Type Severity Reaction Status Date / Time Penicillins Allergy Rash Verified 10/24/24 09:18 New Prescriptions to Start Prescriptions: Height: 1.7 m Weight: 92.533 kg Laboratory Results:: Laboratory Results - last 24 hr 10/24/24 07:15: VBG pH 7.47 H, VBG pCO2 35.0, VBG pO2 43.7 H, VBG HCO3 24.8, VBG Total CO2 25.9, VBG O2 Saturation 79.1 H, VBG Base Excess 1.2, VBG Lactic Acid 2.0 10/24/24 07:20: WBC 21.4 H*, RBC 4.34 L, Hgb 13.7 L, Hct 40.4 L, MCV 93.1, MCH 31.6 H, MCHC 33.9, RDW 16.0, Plt Count 202, MPV 10.8 H, Neut % (Auto) 86.0 H, Lymph % (Auto) 6.3 L, [place] % (Auto) 6.9, Eos % (Auto) 0.0 L, Baso % (Auto) 0.1, Neut # (Auto) 18.4 H, Lymph # (Auto) 1.4, [place] # (Auto) 1.5 H, Eos # (Auto) 0.0, Baso # (Auto) 0.0, PT 14.0 H, INR 1.28 H, APTT 27.2, Sodium 131 L, Potassium 4.3, Chloride 93 L, Carbon Dioxide 27, Anion Gap 15.3 H, BUN 51 H, Creatinine 1.50 H, Estimated Creat Clear 50, Estimated GFR 45 L, Est GFR ( Amer) 54 L, Glucose 114 H, Lactate 1.4, Calcium 8.7, Magnesium 2.4 H, Total Bilirubin 0.6, AST 58, ALT 29, Alkaline Phosphatase 68, Troponin I 0.04 H, NT-Pro-B Natriuret Pep 56252 H, Total Protein 6.7, Albumin 3.1 L, Globulin 3.6 H, Albumin/Globulin Ratio 0.9 L, Lipase 130, Procalcitonin 0.496, TSH 7.32 H, Thyroxine (T4) 8.2 10/24/24 07:51: Urine Color Yellow, Urine Appearance Clear, Urine pH 6.0, Ur Specific [place] 1.010, Urine Protein Negative, Urine Glucose (UA) Negative, Urine Ketones Negative, Urine Blood Negative, Urine Nitrate Negative, Urine Bilirubin Negative, Urine Urobilinogen 0.2, Ur Leukocyte Esterase Negative, Urine RBC None, Urine WBC Occasional, Ur Squamous Epith Cells Occasional, Urine Bacteria None 10/24/24 10:34: Troponin I 0.03 Assessment and Plan Assessment and plan all Dx Assessment and Plan for all problems:: Pharmacokinetic dosing service Objective: Age: 82 yo Serum creatinine: 1.5 mg/dL Height: 67.0 Inches Weight (kg): 92.533 Diagnosis: SEPSIS/PNEUMONIA Assessment: IBW (kg): 66.10 Dosing wt(kg): 92.533 Estimated Creatinine clearance (ml/min): 36.7 CRCL method: Cockcroft and Gault using ibw(default). Drug selected: Vancomycin Vd (liters): 64.8 (factor used: 0.7 L/kg) Calvin (hr-1): 0.035 Half life (hrs): 19.80 CLvanco=?? 2.268 L/hr Recommended dose: 1750 mg Interval: 36 hrs Infusion time (hrs): 2.0 Predicted peak (mcg/mL): 36.4 Predicted trough (mcg/mL): 11.07 Total body weight is being used for vancomycin dosing. Recommendations: Give Vancomycin 1750 mg q 36 hrs with an expected Cpeak of 36.4 mcg/ml and an expected Ctrough of 11.07 mcg/ml AUC 0-24 /POLLY Data: POLLY 0.5 mcg/mL:?? AUC/POLLY:? 1028.8 POLLY 1.0 mcg/mL:?? AUC/POLLY:? 514.4 --------- POLLY 1.5 mcg/mL:?? AUC/POLLY:? 342.9 POLLY 2.0 mcg/mL:?? AUC/POLLY:? 257.2 Thank you for the consult
--- NOTE | 2024-10-24 11:56 | P.CONPHA_ITS ---
Pharmacy Intervention Comments: MEDICATION RECONCILIATION COMPLETED ON PATIENT USING MAR FROM [facility]. -KWAN BURRELL, MARILYND
--- NOTE | 2024-10-24 11:56 | HMH.PHAINT1 ---
Pharmacy Intervention Comments: MEDICATION RECONCILIATION COMPLETED ON PATIENT USING MAR FROM [facility]UST[facility]. -KWAN BURRELL, MARILYND
[2024-10-24] MEDS: CEFEPIME HCL 2 GM in 0.9 % SODIUM CHLORIDE 100 ML IV ×2 (12:41→23:46)
[2024-10-24] MEDS: NYSTATIN TOPICAL POWDER 30GM TP ×2 (13:08→20:23)
[2024-10-24] MEDS: PANTOPRAZOLE 40MG TABLET 40 MG PO (13:08)
[2024-10-24] MEDS: AMIODARONE 200MG TABLET 200 MG PO (13:08)
[2024-10-24] MEDS: TAMSULOSIN 0.4MG CAPSULE 0.4 MG PO (13:08)
[2024-10-24] MEDS: FINASTERIDE 5MG TABLET 5 MG PO (13:09)
[2024-10-24] MEDS: ASPIRIN 81MG CHEWABLE TABLET 81 MG PO (13:09)
[2024-10-24] MEDS: APIXABAN 5MG TABLET 5 MG PO ×2 (13:09→20:24)
[2024-10-24] MEDS: DIVALPROEX 250MG (EXTENDED-RELEASE) TABLET 1000 MG PO ×2 (13:10→20:24)
[2024-10-24] MEDS: levETIRAcetam 500 MG TABLET 1000 MG PO ×2 (13:11→20:24)
--- NOTE | 2024-10-24 13:24 | EXP.CARD.CON ---
History of Present Illness History of Present Illness Consult date: 10/24/24 Chief complaint: SOA, weakness, CP History of present illness: 84 yo WM admitted from SNF with worsening HF, PNA, and AMS. History obtained mostly from chart and who is bedside. Pt's states his baseline is slow ambulation with a walker at home. Had what sounds like a HFpEF admission at [facility] in May but details are not clear. Pt then had a 1.5 week admission for bilateral PNA and HFpEF, new dx A-fib RVR a few weeks ago, also at [facility]. He was started on Amio and Eliquis, no AVB due to low BP. states they did a lot of tests on his heart but she is not aware of a formal dx of HF or CAD - just A-fib and fluid retention. Pt was discharged to [facility] where he has declined over the past week with worsening SOA, LE Edema, AMS, and weakness. Pt came to ER via EMS this morning with above mentioned symptoms. Workup revealed CTA with moderate bilateral pleural effusions, pericardial effusion, and A-fib RVR 130s. Also had WBC 21k (although currently on steroids), Cr 1.5, Trop 0.04, 0.03, ProBNP 12k, O2 87% on room air. He was given single dose of Lasix 80mg IV and admitted fur further workup and management. I am seeing pt on second floor and he is response but not oriented or participating in visit. He is in no distress. [facility] Disclaimer: The information contained in this section may have been updated after the patient was seen, as this information can be updated by other users. Medical History Hypothyroid Seizure Barretts esophagus Osteoporosis Heart failure Atrial fibrillation Social History Smoking Status: Former smoker alcohol intake: never current occupational status: retired Travel in the last 8 weeks?: None Have you lived/traveled outside US in past 30 days?: No Contact w/someone who lives/traveled outside US past 30 days?: No Exposure to someone with infectious disease in past 14 days?: No Do you have a fever (greater than 100.4 F or 38 C)?: No Have you tested positive for COVID-19?: No Exposed to someone with COVID-19 in past 14 days?: No Do you have a sore throat?: No Do you have a cough?: No Do you have any weakness?: No Are you experiencing any nausea/vomitting?: No Do you have any diarrhea?: No Are you experiencing any unusual bleeding?: No Do you have any muscle aches/pain?: No Do you have any abdominal pain?: No Are you experiencing loss of taste or smell?: No Review of Systems Review of Systems Review of systems:: unable to obtain Exam Data for Last 24 hours Vital signs and Labs for Last 24 Hours: Temp Pulse Resp BP Pulse Ox O2 Del Method O2 Flow Rate 97.6 F 123 H 20 125/91 H 95 Nasal Cannula 2 10/24/24 12:00 10/24/24 12:00 10/24/24 12:00 10/24/24 12:00 10/24/24 12:00 10/24/24 12:00 10/24/24 12:00 Laboratory Results - last 24 hr 10/24/24 07:15: VBG pH 7.47 H, VBG pCO2 35.0, VBG pO2 43.7 H, VBG HCO3 24.8, VBG Total CO2 25.9, VBG O2 Saturation 79.1 H, VBG Base Excess 1.2, VBG Lactic Acid 2.0 10/24/24 07:20: WBC 21.4 H*, RBC 4.34 L, Hgb 13.7 L, Hct 40.4 L, MCV 93.1, MCH 31.6 H, MCHC 33.9, RDW 16.0, Plt Count 202, MPV 10.8 H, Neut % (Auto) 86.0 H, Lymph % (Auto) 6.3 L, [place] % (Auto) 6.9, Eos % (Auto) 0.0 L, Baso % (Auto) 0.1, Neut # (Auto) 18.4 H, Lymph # (Auto) 1.4, [place] # (Auto) 1.5 H, Eos # (Auto) 0.0, Baso # (Auto) 0.0, PT 14.0 H, INR 1.28 H, APTT 27.2, Sodium 131 L, Potassium 4.3, Chloride 93 L, Carbon Dioxide 27, Anion Gap 15.3 H, BUN 51 H, Creatinine 1.50 H, Estimated Creat Clear 50, Estimated GFR 45 L, Est GFR ( Amer) 54 L, Glucose 114 H, Lactate 1.4, Calcium 8.7, Magnesium 2.4 H, Total Bilirubin 0.6, AST 58, ALT 29, Alkaline Phosphatase 68, Troponin I 0.04 H, NT-Pro-B Natriuret Pep 64290 H, Total Protein 6.7, Albumin 3.1 L, Globulin 3.6 H, Albumin/Globulin Ratio 0.9 L, Lipase 130, Procalcitonin 0.496, TSH 7.32 H, Thyroxine (T4) 8.2 10/24/24 07:51: Urine Color Yellow, Urine Appearance Clear, Urine pH 6.0, Ur Specific [place] 1.010, Urine Protein Negative, Urine Glucose (UA) Negative, Urine Ketones Negative, Urine Blood Negative, Urine Nitrate Negative, Urine Bilirubin Negative, Urine Urobilinogen 0.2, Ur Leukocyte Esterase Negative, Urine RBC None, Urine WBC Occasional, Ur Squamous Epith Cells Occasional, Urine Bacteria None 10/24/24 10:34: Troponin I 0.03 I & O for Last 24 hours: Intake & Output 10/21/24 10/22/24 10/23/24 10/24/24 23:59 23:59 23:59 23:59 Output Total 750 / 750 Balance -750 / -750 Weight 204 lb Constitutional Constitutional: no acute distress and cooperative *Routine HEENT Exam Eye: Present PERRL *Routine Respiratory Exam Respiratory: Present CTA bilaterally; Absent accessory muscle use, wheezes or crackles *Routine Cardiovascular Exam Cardiovascular: Present RRR, Normal S1 and Normal S2; Absent murmur, gallop or rubs *Routine Abdominal Exam Abdominal: Present soft; Absent tenderness *Routine Extremities Exam Extremities: Present pulses intact; Absent cyanosis or edema *Routine Skin Exam Skin: Present intact; Absent erythema or wounds *Routine Neurological Exam Neurological: Present alert Comments: oriented to person, responds to most commands Routine Psychiatric Exam Psychiatric: Present cooperative Meds Home Medications and Allergies Home Medications ?Medication ?Instructions ?Recorded ?Confirmed ?Type Lactobacillus acidophilus 10 10,000 mmu cells PO DAILY 10/24/24 10/24/24 History billion cell capsule acetaminophen 325 mg tablet 650 mg PO Q4HP PRN Mild Pain 10/24/24 10/24/24 History (Scale Score 1-4) amiodarone 200 mg tablet 200 mg PO DAILY 10/24/24 10/24/24 History apixaban 5 mg tablet 5 mg PO BID 10/24/24 10/24/24 History aspirin 81 mg chewable tablet 81 mg PO DAILY 10/24/24 10/24/24 History atorvastatin 40 mg tablet 40 mg PO DAILY 10/24/24 10/24/24 History calcium carbonate 200 mg PO DAILY 10/24/24 10/24/24 History cholecalciferol (vitamin D3) 50 50 mcg PO Q48H 10/24/24 10/24/24 History mcg (2,000 unit) tablet cyanocobalamin (vitamin B-12) 1,000 mcg PO DAILY 10/24/24 10/24/24 History 1,000 mcg tablet divalproex 500 mg tablet,extended 1,000 mg PO BID 10/24/24 10/24/24 History release 24 hr finasteride 5 mg tablet 5 mg PO DAILY 10/24/24 10/24/24 History fluticasone propionate 50 1 spray intranasal DAILYP PRN 10/24/24 10/24/24 History mcg/actuation nasal Allergy Symptoms spray,suspension furosemide 40 mg tablet 40 mg PO MOWEFR 10/24/24 10/24/24 History ipratropium 0.5 mg-albuterol 3 mg 3 ml inhalation QID 10/24/24 10/24/24 History (2.5 mg base)/3 mL nebulization soln levetiracetam 1,000 mg tablet 1,000 mg PO BID 10/24/24 10/24/24 History levothyroxine 50 mcg tablet 50 mcg PO DAILY 10/24/24 10/24/24 History (Synthroid) midodrine 10 mg tablet 10 mg PO TID 10/24/24 10/24/24 History multivitamin 1 tab PO DAILY 10/24/24 10/24/24 History nystatin 100,000 unit/gram topical 1 applic topical BID 10/24/24 10/24/24 History powder pantoprazole 40 mg tablet,delayed 40 mg PO DAILY 10/24/24 10/24/24 History release tamsulosin 0.4 mg capsule 0.4 mg PO DAILY 10/24/24 10/24/24 History New Prescriptions to Start Prescriptions: Allergies Allergy/AdvReac Type Severity Reaction Status Date / Time amoxicillin (From Augmentin) Allergy Rash Verified 10/24/24 12:21 clavulanic acid (From Allergy Rash Verified 10/24/24 12:21 Augmentin) Penicillins Allergy Rash Verified 10/24/24 09:18 Assessment and Plan *Assessment and plan (1) Acute on chronic heart failure with preserved ejection fraction (HFpEF): Status: Acute Category: Medical Code(s): I50.33 - Acute on chronic diastolic (congestive) heart failure (2) Atrial fibrillation with rapid ventricular response: Status: Acute Category: Medical Code(s): I48.91 - Unspecified atrial fibrillation (3) Sepsis: Status: Acute Category: Medical Code(s): A41.9 - Sepsis, unspecified organism (4) Community acquired pneumonia: Status: Acute Category: Medical Code(s): J18.9 - Pneumonia, unspecified organism Plan Acute on Chronic HFpEF - EWING, Probnp 12k, moderate bilateral pleural effusions and pericardial effusion - no formal dx of HF per family but this will be 3rd admission this calendar year for vol overload, will obtain records from [facility] - Plan: continue diuresis with Lasix. Check 2D ECHO. No GDMT due to hypotension, will reassess throughout admission. Pericardial Effusion - noted on CTA in setting of HFpEF and PNA - continue lasix - ECHO pending A-fib RVR - new dx a few weeks ago at [facility] - HR 100-120 here - resume home dose Eliquis and Amio - diuresing should improving O2 and adrenergic drive, may add AVB if needed to keep HR 120s or less in setting of PNA. Monitor closely with hypotension, low 90s systolic here Acute Hypoxic Resp Failure w/LLL consolidation and recent PNA - WBC 21k, afebrile - antibiotics per Hospitalist AMS - near baseline per reports CV Plan: Continue diuresis, further plans pending ECHO results. ADDENDUM: Echo shows EF is hyperdynamic at 70% and only a trivial pericardial effusion. Will hold off on further diuresis. Consider pleural effusions may be more infectious in etiology
--- NOTE | 2024-10-24 14:12 | P.CONS_ITS ---
History of Present Illness History of present illness: Mr. Disla is a 84-year-old male admitted from a skilled home custodial for worsening respiratory distress and pulmonary was called for further evaluation and management. Patient is all admitted to [facility] in May 2024, most recently early September 2024 for worsening respiratory failure and bilateral pleural effusions, discharged home on antibiotics. 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 No significant smoking history not using any inhalers or oxygen supplementation at baseline up until his recent discharge from [facility] while he was discharged home on oxygen supplementation and nebulization therapy [facility] Disclaimer: The information contained in this section may have been updated after the patient was seen, as this information can be updated by other users. Medical History (Updated 10/24/24 @ 15:33 by Eran Newman MD) Pleural effusion, bilateral Hypothyroid Seizure Barretts esophagus Osteoporosis Heart failure Atrial fibrillation Social History Smoking Status: Former smoker alcohol intake: never current occupational status: retired Travel in the last 8 weeks?: None Have you lived/traveled outside US in past 30 days?: No Contact w/someone who lives/traveled outside US past 30 days?: No Exposure to someone with infectious disease in past 14 days?: No Do you have a fever (greater than 100.4 F or 38 C)?: No Have you tested positive for COVID-19?: No Exposed to someone with COVID-19 in past 14 days?: No Do you have a sore throat?: No Do you have a cough?: No Do you have any weakness?: No Are you experiencing any nausea/vomitting?: No Do you have any diarrhea?: No Are you experiencing any unusual bleeding?: No Do you have any muscle aches/pain?: No Do you have any abdominal pain?: No Are you experiencing loss of taste or smell?: No Review of Systems Constitutional Constitutional: Reports body ache(s) and Reports fatigue Eyes Eyes: Denies eye discharge, Denies dry eyes, Denies irritation and Denies itchy eyes ENT Ears, Nose, Mouth, and Throat: Denies epistaxis, Denies facial pain, Denies lip swelling and Denies throat swelling *Cardiovascular Cardiovascular: Reports dyspnea and Reports dyspnea on exertion *Respiratory Respiratory: Denies change in phlegm color, Reports chest congestion, Reports cough, Reports dyspnea, Reports dyspnea on exertion, Denies excessive phlegm production, Denies hemoptysis, Denies pain on inspiration, Denies pain with cough and Denies wheezing *Gastrointestinal Gastrointestinal: Denies abdominal pain, Denies belching and Denies cramping *Musculoskeletal Musculoskeletal: Reports back pain, Reports myalgias and Reports other (No small joint swelling or Pain) Psychiatric Psychiatric: Denies homicidal ideation and Denies suicidal ideation Endocrine Endocrine: Reports fatigue and Denies heat intolerance Hematologic/Lymphatic Hematologic/Lymphatic: Denies easy bleeding and Denies lymphadenopathy Allergic/Immunologic Allergic/Immunologic: Denies itchy eyes, Denies lip swelling, Denies throat swelling and Denies wheezing Pulmonology Exam Inpatient Vital signs and Labs for Last 24 Hours: Temp Pulse Resp BP Pulse Ox O2 Del Method O2 Flow Rate 97.6 F 123 H 20 125/91 H 95 Nasal Cannula 2 10/24/24 12:00 10/24/24 12:00 10/24/24 12:00 10/24/24 12:00 10/24/24 12:00 10/24/24 12:00 10/24/24 12:00 Laboratory Results - last 24 hr 10/24/24 07:15: VBG pH 7.47 H, VBG pCO2 35.0, VBG pO2 43.7 H, VBG HCO3 24.8, VBG Total CO2 25.9, VBG O2 Saturation 79.1 H, VBG Base Excess 1.2, VBG Lactic Acid 2.0 10/24/24 07:20: WBC 21.4 H*, RBC 4.34 L, Hgb 13.7 L, Hct 40.4 L, MCV 93.1, MCH 31.6 H, MCHC 33.9, RDW 16.0, Plt Count 202, MPV 10.8 H, Neut % (Auto) 86.0 H, L ymph % (Auto) 6.3 L, [place] % (Auto) 6.9, Eos % (Auto) 0.0 L, Baso % (Auto) 0.1, N eut # (Auto) 18.4 H, Lymph # (Auto) 1.4, [place] # (Auto) 1.5 H, Eos # (Auto) 0.0, Baso # (Auto) 0.0, PT 14.0 H, INR 1.28 H, APTT 27.2, Sodium 131 L, Potassium 4.3, Chloride 93 L, Carbon Dioxide 27, Anion Gap 15.3 H, BUN 51 H, Creatinine 1.50 H, Estimated Creat Clear 50, Estimated GFR 45 L, Est GFR ( Amer) 54 L, Glucose 114 H, Lactate 1.4, Calcium 8.7, Magnesium 2.4 H, Total Bilirubin 0.6, AST 58, ALT 29, Alkaline Phosphatase 68, Troponin I 0.04 H, NT-Pro-B Natriuret Pep 03310 H, Total Protein 6.7, Albumin 3.1 L, Globulin 3.6 H, A lbumin/Globulin Ratio 0.9 L, Lipase 130, Procalcitonin 0.496, TSH 7.32 H, Thyroxine (T4) 8.2 10/24/24 07:51: Urine Color Yellow, Urine Appearance Clear, Urine pH 6.0, Ur Specific [place] 1.010, Urine Protein Negative, Urine Glucose (UA) Negative, Urine Ketones Negative, Urine Blood Negative, Urine Nitrate Negative, Urine Bilirubin Negative, Urine Urobilinogen 0.2, Ur Leukocyte Esterase Negative, Urine RBC None, Urine WBC Occasional, Ur Squamous Epith Cells Occasional, Urine Bacteria None 10/24/24 10:34: Troponin I 0.03 I & O for Labs for Last 24 Hours: Intake & Output 10/21/24 10/22/24 10/23/24 10/24/24 23:59 23:59 23:59 23:59 Intake Total 480 / 480 Output Total 750 / 750 Balance -270 / -270 Weight 204 lb Constitutional: Present moderate distress Head: Present normocephalic and atraumatic ENT: Present normal exam, normal oropharynx and mucous membranes moist Neck: Present normal inspection and full ROM Respiratory: Present respiratory distress, diminished air movement and able to speak in complete sentences; Absent rhonchi or wheezes Cardiac: Present S1/S2, Tachycardia and radial pulses present; Absent Reg Rate and Rhythm GI: Present soft and distention; Absent tenderness or guarding Skin: Present intact; Absent cyanosis or jaundice Neuro: Present alert, awake and oriented x 3 Extremities: Present normal inspection; Absent clubbing or cyanosis Psychiatric: Present unable to assess Meds Home Medications and Allergies Home Medications ?Medication ?Instructions ?Recorded ?Confirmed ?Type Lactobacillus acidophilus 10 10,000 mmu cells PO DAILY 10/24/24 10/24/24 History billion cell capsule acetaminophen 325 mg tablet 650 mg PO Q4HP PRN Mild Pa in 10/24/24 10/24/24 History (Scale Score 1-4) amiodarone 200 mg tablet 200 mg PO DAILY 10/24/24 History apixaban 5 mg tablet 5 mg PO BID 10/24/24 5 History aspirin 81 mg chewable tablet 81 mg PO DAILY 10/24/24 10/24/24 History atorvastatin 40 mg tablet 40 mg PO DAILY 10/24/2410/01 History calcium carbonate 200 mg PO DAILY 10/24/24 History cholecalciferol (vitamin D3) 50 50 mcg PO Q48H 5 10/24/24 History mcg (2,000 unit) tablet cyanocobalamin (vitamin B-12) 1,000 mcg PO DAILY 10/2410/24/24 History 1,000 mcg tablet divalproex 500 mg tablet,extended 1,000 mg PO BID 10/0110/24/24 History release 24 hr finasteride 5 mg tablet 5 mg PO DAILY 10/24/2410/24 History fluticasone propionate 50 1 spray intranasal DAILYP HI N 10/24/24 10/24/24 History mcg/actuation nasal Allergy Symptoms spray,suspension furosemide 40 mg tablet 40 mg PO MOWEFR 10/24/24 History ipratropium 0.5 mg-albuterol 3 mg 3 ml inhalation QID 10/24/24 10/24/24 History (2.5 mg base)/3 mL nebulization soln levetiracetam 1,000 mg tablet 1,000 mg PO BID 10/24/24 10/24/24 History levothyroxine 50 mcg tablet 50 mcg PO DAILY 10/24/24 0 10/24/24 History (Synthroid) midodrine 10 mg tablet 10 mg PO TID 10/24/24 History multivitamin 1 tab PO DAILY 10/24/2410/01 History nystatin 100,000 unit/gram topical 1 applic topical BI D 10/24/24 10/24/24 History powder pantoprazole 40 mg tablet,delayed 40 mg PO DAILY 10/2410/24/24 History release tamsulosin 0.4 mg capsule 0.4 mg PO DAILY 10/24/24 History New Prescriptions to Start Prescriptions: Allergies Allergy/AdvReac Type Severity Reaction Status Date / Time amoxicillin (From Augmentin) Allergy Rash Verified 10/24/24 12:21 clavulanic acid (From Allergy Rash Verified 10/24/24 12:21 Augmentin) Penicillins Allergy Rash Verified 10/24/24 09:18 Results Laboratory Findings 10/24/24 07:20 10/24/24 07:20 PT/INR, D-dimer PT 14.0 seconds (10.1-12.5) H 10/24/24 07:20 INR 1.28 (0.9-1.1) H 10/24/24 07:20 Abnormal lab findings: Abnormal Labs 10/24/24 10/24/24 07:15 07:20 WBC 21.4 H* RBC 4.34 L Hgb 13.7 L Hct 40.4 L MCH 31.6 H MPV 10.8 H Neut % (Auto) 86.0 H Lymph % (Auto) 6.3 L Eos % (Auto) 0.0 L Neut # (Auto) 18.4 H [place] # (Auto) 1.5 H PT 14.0 H INR 1.28 H VBG pH 7.47 H VBG pO2 43.7 H VBG O2 Saturation 79.1 H Sodium 131 L Chloride 93 L Anion Gap 15.3 H BUN 51 H Creatinine 1.50 H Estimated GFR 45 L Est GFR ( Amer) 54 L Glucose 114 H Magnesium 2.4 H Troponin I 0.04 H NT-Pro-B Natriuret Pep 85241 H Albumin 3.1 L Globulin 3.6 H Albumin/Globulin Ratio 0.9 L TSH 7.32 H Assessment and Plan *Assessment and plan (1) Community acquired pneumonia: Status: Acute Category: Medical Code(s): J18.9 - Pneumonia, unspecified organism (2) Acute hypoxemic respiratory failure: Status: Acute Category: Medical Code(s): J96.01 - Acute respiratory failure with hypoxia (3) Pleural effusion, bilateral: Status: Acute Category: Medical Code(s): J90 - Pleural effusion, not elsewhere classified Plan Much of the history is obtained from patient and family Mr. Disla is a 84-year-old male admitted from a skilled home custodial for worsening respiratory distress and pulmonary was called for further evaluation and management. Patient is all admitted to [facility] in May 2024, most recently early September 2024 for worsening respiratory failure and bilateral pleural effusions, discharged home on antibiotics. 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 No significant smoking history not using any inhalers or oxygen supplementation at baseline up until his recent discharge from [facility] while he was discharged home on oxygen supplementation and nebulization therapy CTA PE protocol upon admission no evidence of pulmonary embolism. Bilateral moderate pleural effusions with adjacent atelectasis. No dense consolidative/airspace changes. Pericardial effusion also noted. Neutrophilic prominent leukocytosis upon admission. Plan: DuoNebs every 6 hours and as needed basis. Continue cefepime pending blood cultures and will de-escalate antibiotics. Continue oxygen supplementation to maintain O2 saturation above 90% and above Volume optimization as per primary team and cardiology records from [facility] for further review
[2024-10-24 14:19] LABS: Troponin I 0.03 ng/ml (0.00-0.034)
--- NOTE | 2024-10-24 14:43 | P.HP_ITS ---
<Statement entered by Rowdy Almaraz MD - 10/24/24 17:59> Rounded on patient after nurse practitioner. Personally examined and interviewed patient. Agree with exam findings and care plan as documented. History of Present Illness *Admission Date: 10/24/24 *Reason for visit:: HFpEF exacerbation, sepsis, A-fib RVR *History of present illness: Mr. Fuentes is a 84-year-old male with a with a primary history of BPH, GERD, hypothyroidism, dementia, seizures, CHF, hyperlipidemia, A-fib; who presented to the emergency department today from [facility] with complaints of abdominal pain, chest discomfort/tightness, weakness, and increased confusion. Patient was recently admitted at [facility] for pneumonia, he states his visit there was approximately 10 days. He was then transferred to [facility] for rehabilitation. His workup in the emergency room revealed he was in atrial fibrillation RVR, heart rate 132. Workup showed leukocytosis 21,000, FREDY creatinine 1.5, initial elevated troponin 0.04, and a BNP of 12,600. Imaging was obtained, CT which was independently interpreted by me showing bilateral pleural groundglass opacities likely bilateral pleural effusions. Patient does have known dementia but appeared to be more confused than normal per his family. He also has a new requirement of 2 L nasal cannula. [facility] Disclaimer: The information contained in this section may have been updated after the patient was seen, as this information can be updated by other users. Medical History (Updated 10/24/24 @ 15:43 by Shy Hu APRN) Pleural effusion, bilateral Hypothyroid Seizure Barretts esophagus Osteoporosis Heart failure Atrial fibrillation Social History Smoking Status: Former smoker alcohol intake: never current occupational status: retired Travel in the last 8 weeks?: None Have you lived/traveled outside US in past 30 days?: No Contact w/someone who lives/traveled outside US past 30 days?: No Exposure to someone with infectious disease in past 14 days?: No Do you have a fever (greater than 100.4 F or 38 C)?: No Have you tested positive for COVID-19?: No Exposed to someone with COVID-19 in past 14 days?: No Do you have a sore throat?: No Do you have a cough?: No Do you have any weakness?: No Are you experiencing any nausea/vomitting?: No Do you have any diarrhea?: No Are you experiencing any unusual bleeding?: No Do you have any muscle aches/pain?: No Do you have any abdominal pain?: No Are you experiencing loss of taste or smell?: No Other Medical History Have you received the Flu Vaccine for this season: Yes Have you received the Pneumonia Vaccine: Yes Review of Systems Review of Systems Review of systems:: pertinent systems reviewed and negative unless documented below Constitutional Constitutional: Reports fatigue and Reports weakness *Cardiovascular Cardiovascular: Reports irregular heart rhythm and Reports rapid heart rate *Gastrointestinal Gastrointestinal: Reports abdominal pain Integumentary/Breasts Skin/Breast: Reports dry skin and Reports erythema *Neurologic Neurologic: Reports weakness Endocrine Endocrine: Reports fatigue Meds Home Medications and Allergies Home Medications ?Medication ?Instructions ?Recorded ?Confirmed ?Type Lactobacillus acidophilus 10 10,000 mmu cells PO DAILY 10/24/24 10/24/24 History billion cell capsule acetaminophen 325 mg tablet 650 mg PO Q4HP PRN Mild Pa in 10/24/24 10/24/24 History (Scale Score 1-4) amiodarone 200 mg tablet 200 mg PO DAILY 10/24/24 History apixaban 5 mg tablet 5 mg PO BID 10/24/24 5 History aspirin 81 mg chewable tablet 81 mg PO DAILY 10/24/24 10/24/24 History atorvastatin 40 mg tablet 40 mg PO DAILY 10/24/2410/01 History calcium carbonate 200 mg PO DAILY 10/24/24 History cholecalciferol (vitamin D3) 50 50 mcg PO Q48H 5 10/24/24 History mcg (2,000 unit) tablet cyanocobalamin (vitamin B-12) 1,000 mcg PO DAILY 10/2410/24/24 History 1,000 mcg tablet divalproex 500 mg tablet,extended 1,000 mg PO BID 10/0110/24/24 History release 24 hr finasteride 5 mg tablet 5 mg PO DAILY 10/24/2410/24 History fluticasone propionate 50 1 spray intranasal DAILYP NJ N 10/24/24 10/24/24 History mcg/actuation nasal Allergy Symptoms spray,suspension furosemide 40 mg tablet 40 mg PO MOWEFR 10/24/24 History ipratropium 0.5 mg-albuterol 3 mg 3 ml inhalation QID 10/24/24 10/24/24 History (2.5 mg base)/3 mL nebulization soln levetiracetam 1,000 mg tablet 1,000 mg PO BID 10/24/24 10/24/24 History levothyroxine 50 mcg tablet 50 mcg PO DAILY 10/24/24 0 10/24/24 History (Synthroid) midodrine 10 mg tablet 10 mg PO TID 10/24/24 History multivitamin 1 tab PO DAILY 10/24/24 06/09/23 History nystatin 100,000 unit/gram topical 1 applic topical BI D 10/24/24 10/24/24 History powder pantoprazole 40 mg tablet,delayed 40 mg PO DAILY 10/2410/24/24 History release tamsulosin 0.4 mg capsule 0.4 mg PO DAILY 10/24/24 History New Prescriptions to Start Prescriptions: Allergies Allergy/AdvReac Type Severity Reaction Status Date / Time amoxicillin (From Augmentin) Allergy Rash Verified 10/24/24 12:21 clavulanic acid (From Allergy Rash Verified 10/24/24 12:21 Augmentin) Penicillins Allergy Rash Verified 10/24/24 09:18 Exam Data for Last 24 hours Vital signs and Labs for Last 24 Hours: Temp Pulse Resp BP Pulse Ox O2 Del Method O2 Flow Rate 97.6 F 123 H 20 125/91 H 95 Nasal Cannula 2 10/24/24 12:00 10/24/24 12:00 10/24/24 12:00 10/24/24 12:00 10/24/24 12:00 10/24/24 13:00 10/24/24 13:00 Laboratory Results - last 24 hr 10/24/24 07:15: VBG pH 7.47 H, VBG pCO2 35.0, VBG pO2 43.7 H, VBG HCO3 24.8, VBG Total CO2 25.9, VBG O2 Saturation 79.1 H, VBG Base Excess 1.2, VBG Lactic Acid 2.0 10/24/24 07:20: WBC 21.4 H*, RBC 4.34 L, Hgb 13.7 L, Hct 40.4 L, MCV 93.1, MCH 31.6 H, MCHC 33.9, RDW 16.0, Plt Count 202, MPV 10.8 H, Neut % (Auto) 86.0 H, Lymph % (Auto) 6.3 L, [place] % (Auto) 6.9, Eos % (Auto) 0.0 L, Baso % (Auto) 0.1, Neut # (Auto) 18.4 H, Lymph # (Auto) 1.4, [place] # (Auto) 1.5 H, Eos # (Auto) 0.0, Baso # (Auto) 0.0, PT 14.0 H, INR 1.28 H, APTT 27.2, Sodium 131 L, Potassium 4.3, Chloride 93 L, Carbon Dioxide 27, Anion Gap 15.3 H, BUN 51 H, Creatinine 1.50 H, Estimated Creat Clear 50, Estimated GFR 45 L, Est GFR ( Amer) 54 L, Glucose 114 H, Lactate 1.4, Calcium 8.7, Magnesium 2.4 H, Total Bilirubin 0.6, AST 58, ALT 29, Alkaline Phosphatase 68, Troponin I 0.04 H, NT-Pro-B Natriuret Pep 11119 H, Total Protein 6.7, Albumin 3.1 L, Globulin 3.6 H, Albumin/Globulin Ratio 0.9 L, Lipase 130, Procalcitonin 0.496, TSH 7.32 H, Thyroxine (T4) 8.2 10/24/24 07:51: Urine Color Yellow, Urine Appearance Clear, Urine pH 6.0, Ur Specific [place] 1.010, Urine Protein Negative, Urine Glucose (UA) Negative, Urine Ketones Negative, Urine Blood Negative, Urine Nitrate Negative, Urine Bilirubin Negative, Urine Urobilinogen 0.2, Ur Leukocyte Esterase Negative, Urine RBC None, Urine WBC Occasional, Ur Squamous Epith Cells Occasional, Urine Bacteria None 10/24/24 10:34: Troponin I 0.03 10/24/24 13:23: Troponin I 0.03 I & O for Last 24 hours: Intake & Output 10/21/24 10/22/24 10/23/24 10/24/24 23:59 23:59 23:59 23:59 Intake Total 480 / 480 Output Total 750 / 750 Balance -270 / -270 Weight 92.533 kg Constitutional Constitutional: no acute distress and cooperative *Routine HEENT Exam Head: Present normocephalic Eye: Present EOMI and PERRL ENT: Present mucous membranes moist *Routine Neck Exam Neck: Present supple and full ROM; Absent JVD *Routine Respiratory Exam Respiratory: Present CTA bilaterally, able to speak in complete sentences and symmetric chest movement *Routine Cardiovascular Exam Cardiovascular: Present tachycardia and irregular rhythm *Routine Abdominal Exam Abdominal: Present soft and normoactive bowel sounds; Absent tenderness or distended *Routine Rectal Exam Rectal:: deferred *Routine Genitalia Exam Genitalia:: normal male *Routine Extremities Exam Extremities: Absent edema, calf tenderness or tenderness *Routine Skin Exam Skin: Present intact, dry and pallor *Routine Neurological Exam Neurological: Present alert, oriented X3 and normal speech Assessment and Plan *Assessment and plan (1) Acute on chronic heart failure with preserved ejection fraction (HFpEF): Status: Acute Category: Medical Code(s): I50.33 - Acute on chronic diastolic (congestive) heart failure (2) Community acquired pneumonia: Status: Acute Category: Medical Code(s): J18.9 - Pneumonia, unspecified organism (3) Sepsis: Status: Acute Category: Medical Code(s): A41.9 - Sepsis, unspecified organism (4) Left lower lobe consolidation: Status: Acute Category: Medical Code(s): J18.1 - Lobar pneumonia, unspecified organism (5) Acute hypoxemic respiratory failure: Status: Acute Category: Medical Code(s): J96.01 - Acute respiratory failure with hypoxia (6) Atrial fibrillation with rapid ventricular response: Status: Acute Category: Medical Code(s): I48.91 - Unspecified atrial fibrillation (7) Acute kidney injury: Status: Acute Category: Medical Code(s): N17.9 - Acute kidney failure, unspecified (8) Hyperlipemia: Status: Acute Category: Medical Code(s): E78.5 - Hyperlipidemia, unspecified (9) BPH (benign prostatic hyperplasia): Status: Acute Category: Medical Code(s): N40.0 - Benign prostatic hyperplasia without lower urinary tract symptoms (10) GERD (gastroesophageal reflux disease): Status: Acute Category: Medical Code(s): K21.9 - Gastro-esophageal reflux disease without esophagitis (11) History of seizures: Status: Acute Category: Medical Code(s): Z87.898 - Personal history of other specified conditions (12) Physical deconditioning: Status: Acute Category: Medical Code(s): R53.81 - Other malaise Plan Mr. Fuentes is an 84-year-old male who is admitted to the hospital for HFpEF exacerbation, A-fib RVR, sepsis after recent stay at [facility] for a diagnosis of pneumonia. He came into the emergency department today with weakness, abdominal pain, chest discomfort. He was worked up in the emergency department and found to have fluid overload, bilateral pleural effusions, pericardial effusion, left lower lobe consolidation. After discharge from [facility] he was transition to [place] for short-term rehabilitation. During examination he has no complaints. He is requiring 2 L O2 to maintain oxygen saturation above 92%. He was found to be 87% on room air in the emergency room. Patient was also found to have a white count of 21.4, electrolyte abnormalities, hyponatremic sodium 131, FREDY BUN 51, creatinine 1.5. BNP elevated at 12,600, hypothyroidism TSH 7.32. After discussion with the emergency room physician, decision was made by myself to admit patient for further management. Pulmonology and cardiology consulted for input. #Acute on chronic HFpEF #Community-acquired pneumonia #Sepsis #Left lower lobe consolidation #Acute hypoxic respiratory failure ?Independently reviewed chest CTA, moderate effusions noted, left lower lobe consolidation noted. ?Patient started on cefepime and vancomycin empirically, will monitor for toxicity. Patient notable leukocytosis 21.9. Blood cultures pending. ?Patient initially given 1 L fluid bolus in the emergency department, BNP found to be 12,600. Patient then given Lasix 80 mg IV once. ?Repeat CBC, CMP in the AM. #Atrial fibrillation with RVR #FREDY ?Patient was diagnosed with A-fib recently, started on amiodarone and Eliquis. Patient states that he was in normal sinus rhythm prior to this admission. Patient currently in A-fib RVR heart rate 120s. Continuous cardiac telemetry ordered. ?Restart home medication amiodarone and Eliquis. ?Cardiology consulted, echo shows EF 70%. Trivial pericardial effusion. Considering echo results, 500 mL bolus given over 2 hours. ?Discussed with cardiology etiology of patient's pleural effusions, infectious etiology questionable. Continue empiric antibiotics. #Hypothyroidism #history of seizures #GERD #BPH ?Restart home medications per patient's MAR. ?TSH 7.32. Patient currently taking levothyroxine 50 mcg daily. #Physical deconditioning ?PT/OT consulted for further evaluation. Full code Cardiac diet Ambulate as tolerated Eliquis for VTE
[2024-10-24] MEDS: LACTATED RINGERS 1000ML 500 ML 250 ML IV (15:55)
--- NOTE | 2024-10-24 16:56 | PC.NURSE ---
Patient alert and oriented times 4. No complaints of pain. Patient remained on 2LNC and VS stable. Afib on monitor, heart rate between 90-110's. Urine in catheter noted to be reddish brown, some blood noted on penis. No clots noted in catheter bag and no reports of pain by patient. New mepelex applied to bottom and nystatin applied to excoriated groin. Heel protectors in place, skin intact. Lung sounds diminished
--- NOTE | 2024-10-24 17:11 | PC.WOUNDNOTE ---
coccyx, open skin, excoriated
[2024-10-24] MEDS: ACETAMINOPHEN 325MG TAB 650 MG PO (20:24)
--- NOTE | 2024-10-24 20:41 | PC.NURSE ---
patient was turned and is right side lying at 0745
[2024-10-25] VITALS (41 sets, daily range): BP systolic 93–156; BP diastolic 58–85; PULSE 67–124; RESP 15–23; TEMP 36.6–37.4; O2SAT 2–96; BMI 34.0; BMI 32.3
--- NOTE | 2024-10-25 00:05 | PC.NURSE ---
patient was rolled and is now left side lying [id number]
--- NOTE | 2024-10-25 02:07 | PC.NURSE ---
patient was turned to back (supine) at this time 0207
--- NOTE | 2024-10-25 04:18 | PC.NURSE ---
Patient was turned to right side lying position at this time. [id number]
--- NOTE | 2024-10-25 04:22 | PC.NURSE ---
Blue bags and trashes were taken out at this time 0421. Patient's call light is within reach and pt does not need anything
--- NOTE | 2024-10-25 04:52 | PC.NURSE ---
Pt remains A&Ox4 with confusion at times. Pt is tolerating 2L well @ 94%. Pt urine remains bloody, provider is aware. Pt continues to be in Afib on telemetry. Seizure pads remain in place, and alarm is active, for pt safety.
[2024-10-25] MEDS: LEVOTHYROXINE 50MCG (0.05MG) TAB 50 MCG PO (06:19)
[2024-10-25] MEDS: PANTOPRAZOLE 40MG TABLET 40 MG PO (06:19)
--- NOTE | 2024-10-25 06:25 | PC.NURSE ---
Patient was turned to supine position at this time 0625 for breakfast at 0700
--- NOTE | 2024-10-25 06:28 | PC.NURSE ---
Ice filled and table is wiped. call light within reach, patient does not need anything at this time. [id number]
[2024-10-25 06:52] LABS: Basophils % 0.1 % (0.1-2.0); Eosinophils % 0.1 % (0.1-12.0); Immature Granulocytes # 0.09 10^3uL; Immature Granulocytes % 0.5 %; Lymphocytes % 5.9 % (10-50); Mean Corpuscular HGB Conc 33.1 g/dL (31.8-35.4); Mean Corpuscular Hemoglobin 30.7 pg (27.0-31.2); Mean Corpuscular Volume 92.6 fl (80-94); Mean Platelet Volume 11.4 fl (7.4-10.4); Monocytes # 1.2 K/mm3 (0.1-1.0); Monocytes % 7.2 % (1.7-9.3); Neutrophils # 14.3 K/mm3 (1.8-7.8); Neutrophils % 86.2 % (37.0-80.0); Nucleated Red Blood Cells # 0 10^3/uL; Nucleated Red Blood Cells % 0 %; Platelet Count 177 K/mm3 (142-424); Red Blood Count 3.78 M/mm3 (4.60-6.20); Red Cell Distribution Width-SD 54.2 fL; White Blood Count 16.6 K/mm3 (4.8-10.8)
[2024-10-25 06:58] LABS: Albumin Level 2.9 g/dl (3.5-5.0); Chloride 93 mmol/L (98-107); Potassium 3.3 mmoL/L (3.5-5.1); Sodium 131 mmol/L (136-145)
[2024-10-25 07:00] LABS: Alanine Aminotransferase 40 U/L (12-78); Anion Gap 14.3 mEq/L (5-15); Aspartate Amino Transferase 75 U/L (17-59); Blood Urea Nitrogen 57 mg/dl (9-20); Carbon Dioxide 27 mmol/L (22.0-30.0); Creatinine Clearance Estimated 50 mL/min (50-200); Estimated Glomerular Filt Rate 42 ml/min (>60); GFR (African American) 50 ML/MIN (>60)
[2024-10-25 07:01] LABS: Alkaline Phosphatase 67 U/L (38-126); Bilirubin,Total 0.4 mg/dl (0.2-1.3); Calcium 8.1 mg/dl (8.4-10.2); Chol/HDL Ratio 4.6 (1-3.5); Cholesterol 106 mg/dl (140-200); Glucose 91 mg/dl (74-100); HDL Cholesterol 23 mg/dl (40-60); Magnesium 2.4 mg/dl (1.6-2.3); Total Protein,Serum 5.9 g/dl (6.3-8.2); Triglycerides 76 mg/dl (30-150); VLDL Cholesterol 15 mg/dL (0-40)
[2024-10-25 07:12] LABS: Direct LDL Cholesterol 39.66 mg/dL (100-129)
--- NOTE | 2024-10-25 07:35 | SW/DCPLANNER ---
Addendum entered by Samia Colon 10/26/24 12:37: Per Ed auth has been started today. Addendum entered by Samia Colon 10/25/24 11:31: Per Ed ballesteros/ Turner Nixon patient will require a new precert prior to returning. Original Note: Patient currently resides at [facility] level of care. Updated patient information has been faxed to Ed ballesteros/ Turner Nixon. Discharge date is unknown at this time. I will continue to follow up.
[2024-10-25 07:43] LABS: Hemoglobin 11.6 g/dL (14.1-18.0)
[2024-10-25] MEDS: ASPIRIN 81MG CHEWABLE TABLET 81 MG PO (08:51)
[2024-10-25] MEDS: TAMSULOSIN 0.4MG CAPSULE 0.4 MG PO (08:51)
[2024-10-25] MEDS: levETIRAcetam 500 MG TABLET 1000 MG PO ×2 (08:51→20:06)
[2024-10-25] MEDS: AMIODARONE 200MG TABLET 200 MG PO (08:51)
[2024-10-25] MEDS: FINASTERIDE 5MG TABLET 5 MG PO (08:51)
[2024-10-25] MEDS: APIXABAN 5MG TABLET 5 MG PO ×2 (08:53→20:06)
[2024-10-25] MEDS: DIVALPROEX 250MG (EXTENDED-RELEASE) TABLET 1000 MG PO ×2 (08:53→20:06)
[2024-10-25] MEDS: NYSTATIN TOPICAL POWDER 30GM TP (08:54)
[2024-10-25] MEDS: LEVALBUTEROL 1.25MG/3ML NEB 1.25 MG IH ×2 (09:10→17:42)
--- NOTE | 2024-10-25 09:48 | P.PN_ITS ---
Subjective Subjective Date: 10/25/24 Time: 09:51 Principal diagnosis: CHF, pneumonia/sepsis Interval history: 84-year-old white male in bed complaining of shortness of breath. Patient was seen in conjunction with Shy Hu APRN for the Hospitalist service. She states the patient was not having breathing issues yesterday. Non-smoker with no history of asthma. Legs are swollen bilaterally today. On exam wheezing noted audibly and expiratory wheezing noted on auscultation with no inspiratory rhonchi or wheezing noted. O2 sat 94% on 2 L nasal cannula. Exam Data for Last 24 hours Vital signs and Labs for Last 24 Hours: Temp Pulse Resp BP Pulse Ox O2 Del Method O2 Flow Rate 98.2 F 110 H 18 114/85 94 L Nasal Cannula 2 10/25/24 08:31 10/25/24 09:10 10/25/24 08:31 10/25/24 08:31 10/25/24 09:10 10/25/24 09:10 10/25/24 09:10 Laboratory Results - last 24 hr 10/24/24 07:20: Procalcitonin 0.496 10/24/24 10:34: Troponin I 0.03 10/24/24 13:23: Troponin I 0.03 10/25/24 05:45: WBC 16.6 H, RBC 3.78 L, Hgb 11.6 L D, Hct 35.0 L, MCV 92.6, MCH 30.7, MCHC 33.1, RDW 16.0, Plt Count 177, MPV 11.4 H, Neut % (Auto) 86.2 H, Lymph % (Auto) 5.9 L, [place] % (Auto) 7.2, Eos % (Auto) 0.1, Baso % (Auto) 0.1, Neut # (Auto) 14.3 H, Lymph # (Auto) 1.0, [place] # (Auto) 1.2 H, Eos # (Auto) 0.0, Baso # (Auto) 0.0, Sodium 131 L, Potassium 3.3 L D, Chloride 93 L, Carbon Dioxide 27, Anion Gap 14.3, BUN 57 H, Creatinine 1.60 H, Estimated Creat Clear 50, Estimated GFR 42 L, Est GFR ( Amer) 50 L, Glucose 91 D, Calcium 8.1 L, Magnesium 2.4 H, Total Bilirubin 0.4, AST 75 H D, ALT 40 D, Alkaline Phosphatase 67, Total Protein 5.9 L, Albumin 2.9 L, Globulin 3.0, Albumin/Globulin Ratio 1.0 L, Triglycerides 76, Cholesterol 106 L, LDL Cholesterol Direct 39.66 L, VLDL Cholesterol 15, HDL Cholesterol 23 L, Cholesterol/HDL Ratio 4.6 H I & O for Last 24 hours: Intake & Output 10/22/24 10/23/24 10/24/24 10/25/24 11:59 11:59 11:59 11:59 Intake Total 1060 / 1060 Output Total 750 / 750 1225 / 1225 Balance -750 / -750 -165 / -165 Weight 204 lb 216 lb 14.4 oz Microbiology Reports for the Last 24 Hours: Microbiology 10/24/24 07:37 Blood Blood Culture - Preliminary NO GROWTH AFTER 24 HOURS 10/24/24 07:20 Blood Blood Culture - Preliminary NO GROWTH AFTER 24 HOURS Constitutional Constitutional: mild distress *Routine Respiratory Exam Respiratory: Present wheezes; Absent rhonchi *Routine Cardiovascular Exam Cardiovascular: Present tachycardia and irregularly irregular *Routine Extremities Exam Extremities: Present edema Progress Note: A&P Assessment and plan (1) Acute on chronic heart failure with preserved ejection fraction (HFpEF): Status: Acute (2) Community acquired pneumonia: Status: Acute (3) Sepsis: Status: Acute (4) Left lower lobe consolidation: Status: Acute (5) Acute hypoxemic respiratory failure: Status: Acute (6) Atrial fibrillation with rapid ventricular response: Status: Acute (7) Acute kidney injury: Status: Acute (8) Hyperlipemia: Status: Acute (9) BPH (benign prostatic hyperplasia): Status: Acute (10) GERD (gastroesophageal reflux disease): Status: Acute (11) History of seizures: Status: Acute (12) Physical deconditioning: Status: Acute Assessment and Plan Assessment and Plan for All Diagnoses:: 1. Acute on Chronic HFpEF - EWING, Probnp 12k, moderate bilateral pleural effusions and pericardial effusion - no formal dx of HF per family but this is 3rd admission this calendar year for vol overload, [facility] records pending - No GDMT due to hypotension, will reassess throughout admission. - One-time dose of Lasix today - Breathing treatments as ordered - Echo shows EF hyperdynamic at 70%. 2. Pericardial Effusion - noted on CTA in setting of HFpEF and PNA - continue lasix PRN - ECHO shows only trivial pericardial effusion 3. A-fib RVR - new dx a few weeks ago at [facility] - HR 100-120 here - Continue home dose Eliquis and Amio - diuresing should improving O2 and adrenergic drive, may add AVB if needed to keep HR 120s or less in setting of PNA. - Monitor closely with hypotension, low 90s systolic here 4. Acute Hypoxic Resp Failure w/LLL consolidation and recent PNA - WBC 21k, afebrile - antibiotics per Hospitalist 5. AMS - near baseline per reports 6. History of hypotension -Patient is on midodrine at home 7. FREDY, ?CKD -Cr 1.6 with GFR 42 -Check lower extremity venous Doppler to rule out DVT as a source of lower extremity edema (unlikely due to Eliquis therapy) but in light of shortness of breath have to rule out the possibility of source for PE. If DVT confirmed then we will proceed with CTA of the chest to rule out PE. -One-time dose of Lasix due to edema and shortness of breath. - Due to continued tachycardia, will boost amiodarone by giving 24 hour loading IV. Continue oral amiodarone. If not slowed down by tomorrow then will add digoxin.
--- NOTE | 2024-10-25 09:49 | CA_ITS ---
FINAL REPORT CLINICAL HISTORY: edema, CHF, Afib, Dementia COMPARISON: None FINDINGS: Multiple transverse and longitudinal scans were performed of the femoral popliteal deep venous system, with augmentation and compression maneuvers. Normal phasic flow was noted in the visualized deep venous system. No intraluminal increased echogenicity is noted to suggest thrombus. There is normal compression and augmentation of the venous structures. No abnormal venous collaterals are seen. IMPRESSION: No evidence of deep venous thrombosis of the bilateral lower extremities. Reviewed, Interpreted and Dictated by Alexey Ovalles MD Transcribed by Malu Rodriguez Authenticated and [facility]
--- NOTE | 2024-10-25 10:05 | P.PN_ITS ---
Subjective *Date: 10/25/24 *Time: 13:10 Interval history: No acute respiratory events overnight. Pulmonology Exam Inpatient Vital signs and Labs for Last 24 Hours: Temp Pulse Resp BP Pulse Ox O2 Del Method O2 Flow Rate 98.2 F 110 H 18 114/85 94 L Nasal Cannula 2 10/25/24 08:31 10/25/24 09:10 10/25/24 08:31 10/25/24 08:31 10/25/24 09:10 10/25/24 09:10 10/25/24 09:10 Laboratory Results - last 24 hr 10/24/24 07:20: Procalcitonin 0.496 10/24/24 10:34: Troponin I 0.03 10/24/24 13:23: Troponin I 0.03 10/25/24 05:45: WBC 16.6 H, RBC 3.78 L, Hgb 11.6 L D, Hct 35.0 L, MCV 92.6, MCH 30.7, MCHC 33.1, RDW 16.0, Plt Count 177, MPV 11.4 H, Neut % (Auto) 86.2 H, Lymph % (Auto) 5.9 L, [place] % (Auto) 7.2, Eos % (Auto) 0.1, Baso % (Auto) 0.1, Neut # (Auto) 14.3 H, Lymph # (Auto) 1.0, [place] # (Auto) 1.2 H, Eos # (Auto) 0.0, Baso # (Auto) 0.0, Sodium 131 L, Potassium 3.3 L D, Chloride 93 L, Carbon Dioxide 27, Anion Gap 14.3, BUN 57 H, Creatinine 1.60 H, Estimated Creat Clear 50, Estimated GFR 42 L, Est GFR ( Amer) 50 L, Glucose 91 D, Calcium 8.1 L, Magnesium 2.4 H, Total Bilirubin 0.4, AST 75 H D, ALT 40 D, Alkaline Phosphatase 67, Total Protein 5.9 L, Albumin 2.9 L, Globulin 3.0, Albumin/Globulin Ratio 1.0 L, Triglycerides 76, Cholesterol 106 L, LDL Cholesterol Direct 39.66 L, VLDL Cholesterol 15, HDL Cholesterol 23 L, Cholesterol/HDL Ratio 4.6 H Temp Pulse Resp BP Pulse Ox O2 Del Method O2 Flow Rate 97.6 F 123 H 20 125/91 H 95 Nasal Cannula 2 10/24/24 12:00 10/24/24 12:00 10/24/24 12:00 10/24/24 12:00 10/24/24 12:00 10/24/24 12:00 10/24/24 12:00 Laboratory Results - last 24 hr 10/24/24 07:15: VBG pH 7.47 H, VBG pCO2 35.0, VBG pO2 43.7 H, VBG HCO3 24.8, VBG Total CO2 25.9, VBG O2 Saturation 79.1 H, VBG Base Excess 1.2, VBG Lactic Acid 2.0 10/24/24 07:20: WBC 21.4 H*, RBC 4.34 L, Hgb 13.7 L, Hct 40.4 L, MCV 93.1, MCH 31.6 H, MCHC 33.9, RDW 16.0, Plt Count 202, MPV 10.8 H, Neut % (Auto) 86.0 H, Lymph % (Auto) 6.3 L, [place] % (Auto) 6.9, Eos % (Auto) 0.0 L, Baso % (Auto) 0.1, Neut # (Auto) 18.4 H, Lymph # (Auto) 1.4, [place] # (Auto) 1.5 H, Eos # (Auto) 0.0, Baso # (Auto) 0.0, PT 14.0 H, INR 1.28 H, APTT 27.2, Sodium 131 L, Potassium 4.3, Chloride 93 L, Carbon Dioxide 27, Anion Gap 15.3 H, BUN 51 H, Creatinine 1.50 H, Estimated Creat Clear 50, Estimated GFR 45 L, Est GFR ( Amer) 54 L, Glucose 114 H, Lactate 1.4, Calcium 8.7, Magnesium 2.4 H, Total Bilirubin 0.6, AST 58, ALT 29, Alkaline Phosphatase 68, Troponin I 0.04 H, NT-Pro-B Natriuret Pep 66585 H, Total Protein 6.7, Albumin 3.1 L, Globulin 3.6 H, Albumin/Globulin Ratio 0.9 L, Lipase 130, Procalcitonin 0.496, TSH 7.32 H, Thyroxine (T4) 8.2 10/24/24 07:51: Urine Color Yellow, Urine Appearance Clear, Urine pH 6.0, Ur Specific Percy 1.010, Urine Protein Negative, Urine Glucose (UA) Negative, Urine Ketones Negative, Urine Blood Negative, Urine Nitrate Negative, Urine Bilirubin Negative, Urine Urobilinogen 0.2, Ur Leukocyte Esterase Negative, Urine RBC None, Urine WBC Occasional, Ur Squamous Epith Cells Occasional, Urine Bacteria None 10/24/24 10:34: Troponin I 0.03 I & O for Labs for Last 24 Hours: Intake & Output 10/22/24 10/23/24 10/24/24 10/25/24 23:59 23:59 23:59 23:59 Intake Total 940 / 940 120 / 120 Output Total 1625 / 1725 350 / 350 Balance -685 / -785 -230 / -230 Weight 204 lb 216 lb 14.4 oz Intake & Output 10/21/24 10/22/24 10/23/24 10/24/24 23:59 23:59 23:59 23:59 Intake Total 480 / 480 Output Total 750 / 750 Balance -270 / -270 Weight 204 lb Microbiology Reports for the Last 24 Hours: Microbiology 10/24/24 07:37 Blood Blood Culture - Preliminary NO GROWTH AFTER 24 HOURS 10/24/24 07:20 Blood Blood Culture - Preliminary NO GROWTH AFTER 24 HOURS Constitutional: Present moderate distress Head: Present normocephalic and atraumatic ENT: Present normal exam, normal oropharynx and mucous membranes moist Neck: Present normal inspection and full ROM Respiratory: Present respiratory distress, diminished air movement and able to speak in complete sentences; Absent rhonchi or wheezes Cardiac: Present S1/S2, Tachycardia and radial pulses present; Absent Reg Rate and Rhythm GI: Present soft and distention; Absent tenderness or guarding Skin: Present intact; Absent cyanosis or jaundice Neuro: Present alert and awake Extremities: Present normal inspection; Absent clubbing or cyanosis Psychiatric: Present unable to assess Assessment and Plan *Assessment and plan (1) Community acquired pneumonia: Status: Acute Category: Medical Code(s): J18.9 - Pneumonia, unspecified organism (2) Acute hypoxemic respiratory failure: Status: Acute Category: Medical Code(s): J96.01 - Acute respiratory failure with hypoxia (3) Pleural effusion, bilateral: Status: Acute Category: Medical Code(s): J90 - Pleural effusion, not elsewhere classified Plan Much of the history is obtained from patient and family Mr. Disla is a 84-year-old male admitted from a skilled home care home for worsening respiratory distress and pulmonary was called for further evaluation and management. Patient is all admitted to [facility] in May 2024, most recently early September 2024 for worsening respiratory failure and bilateral pleural effusions, discharged home on antibiotics. He has not been following with linen room attendant as an outpatient basis. No significant smoking history not using any inhalers or oxygen supplementation at baseline up until his recent discharge from [facility] while he was discharged home on oxygen supplementation and nebulization therapy CTA PE protocol upon admission no evidence of pulmonary embolism. Bilateral moderate pleural effusions with adjacent atelectasis. No dense consolidative/airspace changes. Pericardial effusion also noted. Neutrophilic prominent leukocytosis upon admission. Normal procalcitonin Interval update: No acute respiratory vents overnight. Improving leukocytosis. Continue to receive cefepime. Blood cultures no growth 24 hours. Echo EF at 70%. Di astolic function indeterminate. CT abdomen liver normal echogenicity. Most recent echocardiogram from [facility] normal EF at 55%. When patient clinical evidence of volume overload with normal cardiac functionality he would definitely benefit from right heart cath. It would be less likely the bilateral pleural effusions are secondary to parapneumonic effusions though cannot be completely ruled out. Will follow with CT imaging performed at [facility] for further review. He continued to receive diuretics with net negative volume status. Oxygen requirements remained stable. Plan: DuoNebs every 6 hours and as needed basis. Continue cefepime pending blood cultures and will de-escalate antibiotics. Continue oxygen supplementation to maintain O2 saturation above 90% and above Volume optimization as per primary team and cardiology Records from [facility] for further review
--- OUTSIDE RECORDS SUMMARY | 2024-10-25 10:09 | XMS_ITS | Encounter Summary ---
Author Organization [employer] Address [address] [place] [address] Care Team Providers Care Tailing Machine Operator Name Role Phone Unavailable Primary Care Provider Unavailabl e Encounter Details Date Type Department Care Team (Late st Contact Info) Description 11/29/2018 Transcribed Document [facility] Family Medicine [address] [place] [address] ProviderDarwin MD [address] [place] [address] Social History Tobacco Use Types [...] OOCS : Other DESIREE : . MELANIE SANDOVAL MD-INT - 11/29/2018 15:19 EDT Electronically signed by Marybeth [facility] Conversion Circular Clerk Cerner at 08/17/2022 9:46 AM CDT documented in this encounter Plan of Treatment Not on file documented as of this encounter Visit Diagnoses Not on filedocumented in this encounter
--- OUTSIDE RECORDS SUMMARY | 2024-10-25 10:09 | XMS_ITS | Encounter Summary ---
Author Organization [employer] Address [address] [place] [address] Care Team Providers Care Ornament Stapler Name Role Phone Unavailable Primary Care Provider Unavailabl e Encounter Details Date Type Department Care Team (Late st Contact Info) Description 11/29/2018 Transcribed Document [facility] [place] [address] [place] [address] ProviderDarwin MD [address] [place] [address] Social History Tobacco Use Types [...]
--- OUTSIDE RECORDS SUMMARY | 2024-10-25 10:09 | XMS_ITS | Encounter Summary ---
Author Organization [employer] i[employer] Address [address] [place] [address] Care Team Providers Care Calender Machine Operator Name Role Phone Unavailable Primary Care Provider Unavailabl e Encounter Details Date Type Department Care Team (Late st Contact Info) Description 11/29/2018 Transcribed Document [facility] Family Medicine [address] [place] [address] ProviderDarwin MD [address] [place] [address] Social History Tobacco Use Types [...] Disposition, General : Discharge Discharge To : [facility] unit[facility]facility Mode Of Departure, General Discharge : [...] 11/29/2018 14:52 EDT Electronically signed by Marybeth [facility] Conversion Information Architect Cerner at 08/17/2022 9:48 AM CDT documented in this encounter Plan of Treatment Not on file documented as of this encounter Visit Diagnoses Not on filedocumented in this encounter
--- OUTSIDE RECORDS SUMMARY | 2024-10-25 10:09 | XMS_ITS | Encounter Summary ---
Author Organization [employer] Address [address] [place] [address] Care Team Providers Care Tool Crib Manager Name Role Phone Unavailable Primary Care Provider Unavailabl e Encounter Details Date Type Department Care Team (Late st Contact Info) Description 11/29/2018 Transcribed Document [facility] [place] [facility] [place] [address] ProviderDarwin MD [address] [place] [address] Social History Tobacco Use Types [...] LUIS AGARWAL, PT - 11/29/2018 11:57 EDT Long-Term Goals Other PT LTG Grid Goal #1 [...] the text rendition version of the form. [facility] PT Charges PT Therap. Exercise 15 min : 1 Gait Training Each 15 Min : 1 LUIS AGARWAL, PT - 11/29/2018 11:57 EDT documented in this encounter Plan of Treatment Not on file documented as of this encounter Visit Diagnoses Not on filedocumented in this encounter
--- OUTSIDE RECORDS SUMMARY | 2024-10-25 10:09 | XMS_ITS | Encounter Summary ---
Author Organization [employer] Address [address] [place] [address] Care Team Providers Care Dural Mechanic Name Role Phone Unavailable Primary Care Provider Unavailabl e Encounter Details Date Type Department Care Team (Late st Contact Info) Description 11/26/2018 Transcribed Document [facility] [place] [facility] [place] [address] ProviderDarwin MD [address] [place] [address] Social History Tobacco Use Types [...] the text rendition version of the form. Electronically signed by Vicente Rueda Conversion Char Dust Cleaner And Salvager Cerner at 08/17/2022 10:06 AM CDT documented in this encounter Plan of Treatment Not on file documented as of this encounter Visit Diagnoses Not on filedocumented in this encounter
--- OUTSIDE RECORDS SUMMARY | 2024-10-25 10:09 | XMS_ITS | Encounter Summary ---
Author Organization [email or web address] Address [address] [place] [address] Care Team Providers Care Medical Billing Clerk Name Role Phone Unavailable Primary Care Provider Unavailabl e Encounter Details Date Type Department Care Team (Late st Contact Info) Description 11/26/2018 Transcribed Document [facility] [place] [facility] [place] [address] ProviderDarwin MD [address] [place] [address] Social History Tobacco Use Types [...]
--- OUTSIDE RECORDS SUMMARY | 2024-10-25 10:09 | XMS_ITS | Encounter Summary ---
Author Organization [employer] Address [address] [place] [address] Care Team Providers Care Computer Numeric Control Setter Name Role Phone Unavailable Primary Care Provider Unavailabl e Encounter Details Date Type Department Care Team (Late st Contact Info) Description 11/29/2018 Transcribed Document [facility] Family Medicine [address] [place] [address] ProviderDarwin MD [address] [place] [address] Social History Tobacco Use Types [...] prior to surgery) Electronically signed by Marybeth [facility] Conversion Die Drawing Checker Cerner at 08/17/2022 9:50 AM CDT documented in this encounter Plan of Treatment Not on file documented as of this encounter Visit Diagnoses Not on filedocumented in this encounter
--- OUTSIDE RECORDS SUMMARY | 2024-10-25 10:09 | XMS_ITS | Encounter Summary ---
Author Organization [employer] Address [address] [place] [address] Care Team Providers Care Director Of Food And Nutrition Name Role Phone Unavailable Primary Care Provider Unavailabl e Encounter Details Date Type Department Care Team (Late st Contact Info) Description 11/26/2018 Transcribed Document [facility] [place] [address] [place] [address] ProviderDarwin MD [address] [place] [address] Social History Tobacco Use Types [...] Darwin ProviderMD - 11/26/2018 9:05 PM CDT Education-(VTE) [...]
--- OUTSIDE RECORDS SUMMARY | 2024-10-25 10:10 | XMS_ITS | Encounter Summary ---
Author Organization [employer] Address [address] [place] [address] Care Team Providers Care Sales And Marketing Administrator Name Role Phone Unavailable Primary Care Provider Unavailabl e Encounter Details Date Type Department Care Team (Late st Contact Info) Description 11/26/2018 Transcribed Document [facility] [address] [place] [address] ProviderDarwin MD [address] [place] [address] Social History Tobacco Use Types [...] Darwin ProviderMD - 11/26/2018 3:37 PM CDT [facility] Main OR PACU Summary Primary Physician: BRIDGETTE MEJIAS MD-ORT Finalized Date/Time: 11/26/18 17:30:38 Pt. Name: CLAUDINE GARAY D.O.B./Sex: 1940 Male Med Rec #: [id number] Physician: MELANIE SANDOVAL MD-INT Financial #: [id number] Pt. Type: I Room/Bed: [facility]/1 Admit/Disch: 11/26/18 12:26:00 - Institution: [facility] OR PACU Case Times Entry 1 In PACU I 11/26/18 16:41:00 Ready for PACU 11/26/18 17:18:00 Discharge Discharge from PACU 11/26/18 17:18:00 I Last Modified By: Mae Meyer Rn 11/26/18 17:29:03 Finalized By: Mae Meyer Rn Document Signatures Signed By: Mae Meyer Rn 11/26/18 17:30 Electronically signed by Marybeth [facility] Conversion Cardiology Nurse Cerner at 08/17/2022 10:09 AM CDT documented in this encounter Plan of Treatment Not on file documented as of this encounter Visit Diagnoses Not on filedocumented in this encounter
--- OUTSIDE RECORDS SUMMARY | 2024-10-25 10:10 | XMS_ITS | Encounter Summary ---
Author Organization [employer] Address [address] [place] [address] Care Team Providers Care Utilization Review Nurse Name Role Phone Unavailable Primary Care Provider Unavailabl e Encounter Details Date Type Department Care Team (Late st Contact Info) Description 11/26/2018 Transcribed Document [facility] Family Medicine [address] [place] [address] ProviderDarwin MD [address] [place] [address] Social History Tobacco Use Types [...] Cris Goodman RN - 11/26/2018 23:54 EDT documented in this encounter Plan of Treatment Not on file documented as of this encounter Visit Diagnoses Not on filedocumented in this encounter
--- OUTSIDE RECORDS SUMMARY | 2024-10-25 10:10 | XMS_ITS | Encounter Summary ---
Author Organization [employer] Address [address] [place] [address] Care Team Providers Care 7Th Grade Teacher Name Role Phone Unavailable Primary Care Provider Unavailabl e Encounter Details Date Type Department Care Team (Late st Contact Info) Description 11/26/2018 Transcribed Document [facility] [place] [address] [place] [address] ProviderDarwin MD [address] [place] [address] Social History Tobacco Use Types [...] EDT Electronically signed by Marybeth thang Conversion Landfill [employer] Plant Field Technician Cerner at 08/17/2022 10:10 AM CDT documented in this encounter Plan of Treatment Not on file documented as of this encounter Visit Diagnoses Not on filedocumented in this encounter
--- OUTSIDE RECORDS SUMMARY | 2024-10-25 10:10 | XMS_ITS | Clinical Summary ---
Author Organization [employer] Address [address] [place] [address] Care Team Providers Care Operations Administrator Name Role Phone Unavailable Primary Care [...]
--- OUTSIDE RECORDS SUMMARY | 2024-10-25 10:10 | XMS_ITS | Encounter Summary ---
Author Organization [employer] Address [address] [place] [address] Care Team Providers Care Data Integration Architect Name Role Phone Unavailable Primary Care Provider Unavailabl e Encounter Details Date Type Department Care Team (Late st Contact Info) Description 11/26/2018 Transcribed Document [facility] Family Medicine [facility] [place] [address] ProviderDarwin MD [address] [place] [address] Social History Tobacco Use Types [...] Darwin ProviderMD - 11/26/2018 3:37 PM CDT [facility] [place] IntraOp Summary Primary Physician: BRIDGETTE MEJIAS MD-ORT Finalized Date/Time: 11/27/18 11:34:13 Pt. Name: CLAUDINE GARAYO.B./Sex: 1940 Male Med Rec #: [id number] Physician: MELANIE SANDOVAL MD-INT Financial #: [id number] Pt. Type: I Room/Bed: [facility]/1 Admit/Disch: 11/26/18 12:26:00 - Institution: [facility] IntraOp Case Attendance Entry 1 Entry 2 Entry 3 Case Attendee BRIDGETTE MEJIAS GRAHAM, KIMBERLY, RN Nelda Mora MD-ORT Chronometer Adjuster Role Performed Surgeon/Proceduralist, Financial Investigator, First Scrub, First First Time In 11/26/18 [...] BANG WYNNE, REYNA HI, JEAN CLAUDE SHIN, Compliance Director Role Performed Acid Cutter, First Anesthesiologist Server Service Assistant Time In 11/26/18 15:20:00 11/26/18 15:20:00 11/26/18 [...] Femur Intramedullary Nailing Hip Gamma Other Attendee girselda orellana Superficial Wound Closed By: Last Modified By: ERICA MARSHALL, JAIRON 11/26/18 15:48:47 [facility] IntraOp Case Attendance Audit 11/26/18 16:32:39 Pipeline Maintenance Supervisor: LELE Modifier: LELE 1 <+> Time Out [...] Femur Intramedullary Nailing Hip Gamma 11/26/18 15:49:23 Pipeline Maintenance Supervisor: LELE Modifier: LELE <+> 1 Procedure 2 [...] [facility] IntraOp Case Times Audit 11/26/18 16:32:27 Pipeline Maintenance Supervisor: LELE Modifier: LELE <+> 1 Out Room [...] Performed By Nelda Mora, Nelda Mora, (Scrub) Chronometer Adjuster Chronometer Adjuster Count Performed By ERICA MARSHALL RN GRAHAM, KIMBERLY, RN (RN) Last Modified By: ERICA MARSHALL RN GRAHAM, KIMBERLY, RN 11/26/18 15:52:49 11/26/18 15:52:49 [facility] IntraOp Counts Final Entry 1 Procedure Femur Intramedullary Nailing Hip Gamma Final Count Info Count Type Sponge, Sharps Counts Verification Skin Closure/end of Sequence procedure Count Results Correct, surgeon notified Counts Performed By Count Performed By Nelda Mora, (Scrub) Chronometer Adjuster Count Performed By ERICA MARSHALL RN (RN) [...] RN 11/26/18 15:49:32 [facility] IntraOp General Case Emergency Room Rn 1 Case Information OR OR 01 [facility] Case Level 1 Room Verified Yes Wound [...] L SCR LAG [place] 3 10. Identification [id number] Description Implant Quantity 1 1 Implant Site Implant Identification Model Number Implant Identification Serial Number Implant [id number] Identification Lot Number Implant [place]:Winnebago Winnebago:Obinna Identification Orthopaedics Orthopaedics Pulverizer Feeder Name: Implant [id number] Identification Catalog Number Implant Size Implant Has an Yes Yes Expiration Date Implant Expiration 06/30/23 06/30/23 Date Wasted Radioactive Material Time Implanted Tissue Implant Continue for Tissue Implant Documentation Tissue Identification Number Graft Prep Per Pulverizer Feeder Instructions: Tissue Preparation Method: Reconstitution Solution: Reconstitution Solution Lot Number Reconstitution Solution Expiration Date: Thawing Solution Thawing Solution Lot Number Thawing Solution Expiration Date Preparation Materials, Other Preparation Materials, Other Lot Number Preparation Materials, Other Expiration Date Tissue Prepared/Processed By Pulverizer Feeder Paperwork Completed Implant Type Comment Last Modified [...] Intra Op Sign Out Audit 11/26/18 16:32:14 Pipeline Maintenance Supervisor: LELE Modifier: LELE <+> 1 RN Sign [...] [facility] IntraOp Surgical Procedures Audit 11/26/18 16:32:07 Pipeline Maintenance Supervisor: LELE Modifier: LELE 1 <*> Procedure Femur [...] 1 X-Ray/Imaging Type Fluoroscopy Fluoroscopy Type C-Arm Client Care Specialist Name JEAN CLAUDE ORTIZ, Compliance Director Protective Devices Yes Used Last Modified By: [...]
--- OUTSIDE RECORDS SUMMARY | 2024-10-25 10:10 | XMS_ITS | Encounter Summary ---
Author Organization [employer] Address [address] [place] [address] Care Team Providers Care Gambling Supervisor Name Role Phone Unavailable Primary Care Provider Unavailabl e Encounter Details Date Type Department Care Team (Late st Contact Info) Description 11/29/2018 Transcribed Document [facility] Family Medicine [address] [place] [address] ProviderDarwin MD [address] [place] [address] Social History Tobacco Use Types [...] left hip fracture on x-ray done at [facility] ED (or more details please [...] CLINICALLY STABLE AFEBRILE OK TO D/C TO [facility] TO CONTINUE HIS CARE AND REHABILITATION AND TO FOLLOW-UP WITH DR. ISAC CORONA SCHEDULED. Orders Order Profile (Selected) Prescriptions Prescribed Keflex 500 mg oral capsule: 1 Cap, Oral, Cap, Q8H, X 7 Day(s), # 21 Cap, 0 Refill(s), other reason (Rx) Campbell 7.5 mg-325 mg oral tablet: 1 Tab, [...]
--- OUTSIDE RECORDS SUMMARY | 2024-10-25 10:10 | XMS_ITS | Encounter Summary ---
Author Organization [employer] Address [address] [place] [address] Care Team Providers Care C[employer] Driver Name Role Phone Unavailable Primary Care Provider Unavailabl e Encounter Details Date Type Department Care Team (Late st Contact Info) Description 12/04/2018 Transcribed Document [facility] Family Medicine [facility] [place] [address] ProviderDarwin MD [address] [place] [address] Social History Tobacco Use Types [...] 190ft with CGA with RWx. D/C to [facility]. Gurpreet Bowser, Physical Therapist - 12/04/2018 14:06 EDT Care Home Goals Other PT LTG Grid Goal #1 [...]
--- OUTSIDE RECORDS SUMMARY | 2024-10-25 10:10 | XMS_ITS | Encounter Summary ---
Author Organization [employer] i[employer] Address [address] [place] [address] Care Team Providers Care Hand Paster Name Role Phone Unavailable Primary Care Provider Unavailabl e Encounter Details Date Type Department Care Team (Late st Contact Info) Description 11/29/2018 Transcribed Document [facility] [place] Family Medicine [address] [place] [address] ProviderDarwin MD [address] [place] [address] Social History Tobacco Use Types [...] 11/29/2018 5:35 EDT Electronically signed by Marybeth [facility] Conversion Art Handler Ace at 08/17/2022 9:54 AM CDT documented in this encounter Plan of Treatment Not on file documented as of this encounter Visit Diagnoses Not on filedocumented in this encounter
--- OUTSIDE RECORDS SUMMARY | 2024-10-25 10:10 | XMS_ITS | Encounter Summary ---
Author Organization [employer] i[employer] Address [address] [place] [address] Care Team Providers Care Arcade Attendant Name Role Phone Unavailable Primary Care Provider Unavailabl e Encounter Details Date Type Department Care Team (Late st Contact Info) Description 11/27/2018 Transcribed Document [facility] [place] Family Medicine [address] [place] [address] ProviderDarwin MD [address] [place] [address] Social History Tobacco Use Types [...] On: 11/27/2018 15:49 EDT by CHINMAY PASCUAL, Rn-Supervisor Tubing Initial Assessment I Previously Documented Living Environment [...] Listed? : Yes Medical Durable Power of Education Analyst Name : patient states his is first and son is secondary if she is unable Legal Guardian : No Is Guardianship Needed : No CHINMAY PASCUAL Rn-Supervisor Tubing - 11/27/2018 15:49 EDT Initial Assessment II Sensory and Motor Deficits : None Current Home Treatments and Equipment : Walker, Wheelchair Services and Community Resources : Physical Therapy Services and Community Resources Addl Comments : Patient was going to outpatient PT in [place] CHINMAY PASCUAL Rn-Supervisor Tubing - 11/27/2018 15:49 EDT Discharge Needs I Anticipated Discharge Date : 11/29/2018 EDT Anticipated Discharge To, CM : Home with home health, Rehabilitation Unit Current Home Treatment/Equipment : Current Home Treatment/Equipment No qualifying data available. CHINMAY PASUCAL Rn-Supervisor Tubing - 11/27/2018 15:49 EDT Discharge Needs II Professional Skilled Services : Professional Skilled Services No qualifying data available. Needs Assistance with Transportation : No Discharge Options Discussed with Patient : DME, Home Health, Outpatient services, Short term rehabilitation CHINMAY PASCUAL Rn-Supervisor Tubing - 11/27/2018 15:49 EDT documented in this encounter Plan of Treatment Not on file documented as of this encounter Visit Diagnoses Not on filedocumented in this encounter
--- OUTSIDE RECORDS SUMMARY | 2024-10-25 10:10 | XMS_ITS | Encounter Summary ---
Author Organization [employer] Address [address] [place] [address] Care Team Providers Care Traffic Chief Name Role Phone Unavailable Primary Care Provider Unavailabl e Encounter Details Date Type Department Care Team (Late st Contact Info) Description 11/27/2018 Transcribed Document [facility] [place] [address] [place] [address] ProviderDarwin MD [address] [place] [address] Social History Tobacco Use Types [...]
--- OUTSIDE RECORDS SUMMARY | 2024-10-25 10:10 | XMS_ITS | Encounter Summary ---
Author Organization [employer] i[employer] Address [address] [place] [address] Care Team Providers Care Banquet Stewardess Name Role Phone Unavailable Primary Care Provider Unavailabl e Encounter Details Date Type Department Care Team (Late st Contact Info) Description 11/26/2018 Transcribed Document [facility] [place] [facility] [place] [address] ProviderDarwin MD [address] [place] [address] Social History Tobacco Use Types [...] MARIANNE MONTALVO, PT - 11/27/2018 9:10 EDT Cool Roofing Installer Goals Other PT LTG Grid Goal #1 [...] from acute skilled PT services to maxamize safety/[place] with functional mobility prior to discharge. MARIANNE [...]
--- OUTSIDE RECORDS SUMMARY | 2024-10-25 10:10 | XMS_ITS | Encounter Summary ---
Author Organization [employer] Address [address] [place] [address] Care Team Providers Care Peanut Cleaner Name Role Phone Unavailable Primary Care Provider Unavailabl e Encounter Details Date Type Department Care Team (Late st Contact Info) Description 11/29/[address] [facility] [place] Family Medicine [address] [place] [address] ProviderDarwin MD [address] [place] [address] Social History Tobacco Use Types [...]
--- OUTSIDE RECORDS SUMMARY | 2024-10-25 10:10 | XMS_ITS | Encounter Summary ---
Author Organization Agent [employer] Address [address] [place] [address] Care Team Providers Care Cone Trucker Name Role Phone Unavailable Primary Care Provider Unavailabl e Encounter Details Date Type Department Care Team (Late st Contact Info) Description 12/01/2018 Transcribed Document [facility] [place] [address] [place] [address] ProviderDarwin MD [address] [place] [address] Social History Tobacco Use Types [...] Policy Numbers : Insurance 1 Health Plan: Ku6 Policy Number: [id number] Authorization Number: [id number] Insurance Primary Name : [facility] Medicare Authorization Status-Primary : Awaiting callback Reference Number-Primary : [id number] Number of Days Authorized-Primary : 2 Authorized Service Begin Date-Primary : 11/26/2018 EDT Authorized Service End Date-Primary : 11/27/2018 EDT Authorization Comments-Primary : [facility] d/c date and summary attached to website ---auth still pending Historical Authorization Comments-Primary : Comment 1: Uploaded clinicals to [facility] Medicare via [employer] for continuing stay. (JONY PALOMO, RN-Utilization Review 11/28/2018 13:33) Comment 2: [facility] approved per fax back -- nrd 11/28 (VANDANA CRUZ, JAIRON-Utilization Review 11/27/2018 16:05) Comment 3: Uploaded clinicals to [facility] Medicare via [employer]. (JONY PALOMO, JAIRON-Utilization Review 11/27/2018 09:20) VANDANA CRUZ RN-Utilization Review - 12/01/2018 11:06 EDT Electronically signed by Vicente Rueda Conversion Supervisor Gelatin Plant Ceralexander at 08/17/2022 10:09 AM CDT documented in this encounter Plan of Treatment Not on file documented as of this encounter Visit Diagnoses Not on filedocumented in this encounter
--- OUTSIDE RECORDS SUMMARY | 2024-10-25 10:10 | XMS_ITS | Encounter Summary ---
Author Organization [employer] i[employer] Address [address] [place] [address] Care Team Providers Care Line Maintainer Name Role Phone Unavailable Primary Care Provider Unavailabl e Encounter Details Date Type Department Care Team (Late st Contact Info) Description 11/26/2018 Transcribed Document [facility] [place] Family Medicine [facility] [place] [address] ProviderDarwin MD [address] [place] [address] Social History Tobacco Use Types [...] femoral neck fracture. SURGEON: Mouna Juárez MD SENIOR NURSE MANAGER: Maxwell Joyner PA-C necessary for leg positioning [...] this time, he was placed on the Caribou table with the right leg flexed and [...] The patient was then removed from the Caribou table and placed supine in his hospital bed and taken in extubated stable condition to the recovery room. Mouna Juárez M.D. Dict: 11/26/2018 16:37:32 Trans: 11/26/2018 19:23:54 CC1: Mouna Juárez M.D. Electronically signed by Vicente Rueda Conversion Assembler Cards And Announcements Cerner at 08/17/2022 9:53 AM CDT documented in this encounter Plan of Treatment Not on file documented as of this encounter Visit Diagnoses Not on filedocumented in this encounter
--- OUTSIDE RECORDS SUMMARY | 2024-10-25 10:10 | XMS_ITS | Referral Summary ---
Author Organization [employer] i[employer] Address [address] [place] [address] Care Team Providers Care Leather Production Artisan Name Role Phone Unavailable Primary Care Provider [...]
--- OUTSIDE RECORDS SUMMARY | 2024-10-25 10:10 | XMS_ITS | Encounter Summary ---
Author Organization [employer] iatives Address [address] [place] [address] Care Team Providers Care Sanipractic Physician Name Role Phone Unavailable Primary Care Provider Unavailabl e Encounter Details Date Type Department Care Team (Late st Contact Info) Description 11/29/2018 Transcribed Document [facility] [place] [facility] [place] [address] ProviderDarwin MD [address] [place] [address] Social History Tobacco Use Types [...] Darwin ProviderMD - 11/29/2018 3:29 PM CDT [place] [id number] CLAUDINE GARAY :1940 Visit Time:11/26/2018 Your Visit Summary Your Care Team Admitting Physician - MELANIE SANDOVAL MD-[place] JEFF MCNEIL MD-[facility] PHY, UNKNOWN Attending Physician - MELANIE SANDOVAL MD-INT JEFF MCNEIL MD-EMR Primary Care Physician - BLAIRE ALBERT (REF)MD-[facility] Referring Physician - YANIV, SELF REFERRED Your [...] EDT Comments Appointment has been made Where: [address] [place] [address] [address] [place] [address]- Medications What How Much When Instructions Next Dose acetaminophen-hydrocodone (Daphne 7.5 mg-325 mg oral tablet) 1 Tablet(s) [...] Barley. Bulgur wheat. Millet. Bran muffins. Popcorn. [place] wafer crackers. Vegetables Sweet potatoes. Spinach. Kale. Artichokes. Cabbage. Broccoli. Green peas. Carrots. Squash. Fruits Berries. Pears. Apples. Oranges. Avocados. Prunes and raisins. Dried figs. Meats and Other Protein Sources [place], kidney, miranda, and soy beans. Split peas. [...] maisha has 11 g of protein. ??? [place] seeds ??? 1 oz has 5.5 g [...] floor. ??? Place frequently used items in hwna-bp-tdtwp places ??? Keep electrical cables out of [...] ??? Using the bathroom. ??? Using household tobacco scrap sifter or toxic chemicals. ??? Touching or taking [...] may report side effects to FDA at 7-273-QHX-3805. What other drugs will affect acetaminophen and [...] affect acetaminophen and oxycodone, including prescription and ceug-pva-wdxvqsq medicines, vitamins, and herbal products. Not all [...] to ensure that the information provided by [employer]. ('Multum') is accurate, up-to-date, and complete, but no guarantee is made to that effect. Drug information contained herein may be time sensitive. Smart [employer]oon information has been compiled for use by healthcare practitioners and consumers in the [place] and therefore Smart [employer]oon does not warrant that uses outside of the [place] are appropriate, unless specifically indicated otherwise. Nidmis drug information does not endorse drugs, diagnose patients or recommend therapy. Nidmis drug information is an informational resource designed [...] effective or appropriate for any given patient. Smart [employer] does not assume any responsibility for any aspect of healthcare administered with the aid of information Smart Balloon provides. The information contained herein is not intended to cover all possible uses, directions, precautions, warnings, drug interactions, allergic reactions, or adverse effects. If you have questions about the drugs you are taking, check with your doctor, nurse or pharmacist. Copyright 1097-5267 [employer]. Version: 18.02. Revision Date: 03/29/2018. cephalexin (sef [...] may report side effects to FDA at 9-734-CAY-9537. What other drugs will affect cephalexin? Tell your doctor about all your other medicines, especially: ?? metformin; or ?? probenecid. This list is not complete. Other drugs may affect cephalexin, including prescription and abvu-ucc-lzjmmoz medicines, vitamins, and herbal products. Not all [...] to ensure that the information provided by [employer]. ('Multum') is accurate, up-to-date, and complete, but no guarantee is made to that effect. Drug information contained herein may be time sensitive. Smart Balloon information has been compiled for use by healthcare practitioners and consumers in the [place] and therefore Smart [employer]oon does not warrant that uses outside of the [place] are appropriate, unless specifically indicated otherwise. Nidmis drug information does not endorse drugs, diagnose patients or recommend therapy. Nidmis drug information is an informational resource designed [...] effective or appropriate for any given patient. [employer] does not assume any responsibility for any aspect of healthcare administered with the aid of information Smart Balloon provides. The information contained herein is not intended to cover all possible uses, directions, precautions, warnings, drug interactions, allergic reactions, or adverse effects. If you have questions about the drugs you are taking, check with your doctor, nurse or pharmacist. Copyright 6360-3250 Loginza. Version: 10.. Revision Date: 04/28/2018. Emergency Awareness [...] Assistance with quitting is available by contacting 7-624-GXLQNOW. This is a free resource providing counseling, [...] range between ( 1.0 and 7.0 ) [place] #: 1.08 K/uL -- Normal range between ( 0.24 and 0.82 ) [place] #: 0.05 K/uL -- Normal range between ( 0.04 and 0.54 ) [place] %: 8.1 % -- Normal range between [...] Urine Bilirubin Dipstick: Negative mg/dL Urine Specific [place]: 1.008 -- Normal range between ( 1.005 and 1.030 ) [facility] Type.: [facility] 11/29/18 02:51:00 Creatinine Level: [...] was given the opportunity to ask questions. Patient/Precast Worker Name: Patient/Precast Worker Signature: Relationship to Patient: Clinician/Hospital Precast Worker Signature: Date: Electronically signed by Marybeth [facility] Conversion Special Service Officer Ace at 08/17/2022 10:06 AM CDT documented in this encounter Plan of Treatment Not on file documented as of this encounter Visit Diagnoses Not on filedocumented in this encounter
--- OUTSIDE RECORDS SUMMARY | 2024-10-25 10:10 | XMS_ITS | Encounter Summary ---
Author Organization [employer] Address [address] [place] [address] Care Team Providers Care Rn Case Manager Name Role Phone Unavailable Primary Care Provider Unavailabl e Encounter Details Date Type Department Care Team (Late st Contact Info) Description 11/26/2018 Transcribed Document [facility] [place] [facility] [place] [address] ProviderDarwin MD [address] [place] [address] Social History Tobacco Use Types [...] Obtained From : Patient Primary Language : Romansh Communication Barrier : None MARTI LIM RN [...] Scale Risk Level : 25-45 Medium Risk [place] Fall Interventions : Adequate lighting, Assistive devices [...] Source : Stated Height Entry Format : Cunningham Height, Feet : 5 ft(Converted to: 152 cm, 60 Inch) Height, Inches : 7 Inch(Converted to: 0 ft 7 Inch, 17.78 cm) Clinical Height : 170.18 cm Weight Source : Stated [place] Body Weight : 65 kg MARTI LIM RN - 11/26/2018 18:00 EDT Estimated Weight Type of Weight Measurement Est : Cunningham Weight, est lb : 197 lb(Converted to: [...]
--- OUTSIDE RECORDS SUMMARY | 2024-10-25 10:10 | XMS_ITS | Encounter Summary ---
Author Organization [employer] Address [address] [place] [address] Care Team Providers Care Biogeographer Name Role Phone Unavailable Primary Care Provider Unavailabl e Encounter Details Date Type Department Care Team (Late st Contact Info) Description 11/26/2018 Transcribed Document [facility] [place] Family Medicine [address] [place] [address] ProviderDarwin MD [address] [place] [address] Social History Tobacco Use Types [...] No Fine Motor Coordination Impaired : No ANITA ALVAREZ OTR/Delilah - 11/27/2018 9:20 EDT Self Care/Home Management, OT Self Feeding Assist Level, OT : Independent, complete Grooming Assist Level, OT : Independent, complete Bathing Assist Level, OT : Supervision or set-up Upper Body Dressing Assist Level, OT : Independent, complete Lower Body Dressing Assist Level, OT : Assist, minimal Toileting Assist Level : Assist, minimal Toileting Device : Gydxi-dq-exu commode Toilet Transfer Assist Level : Assist, minimal Toilet Transfer Device : Belt, gait, Walker, rolling, Aydrh-py-klo commode ANITA ALVAREZ OTR/Delilah 11/27/2018 9:20 EDT [...] ANITA ALVAREZ OTR/Delilah - 11/27/2018 9:20 EDT Shelter Goals, OT Other LTG Grid Goal #1 [...] 11/27/2018 9:20 EDT Electronically signed by Marybeth [facility] Conversion [place] Inspector Cerner at 08/17/2022 9:59 AM CDT documented in this encounter Plan of Treatment Not on file documented as of this encounter Visit Diagnoses Not on filedocumented in this encounter
--- OUTSIDE RECORDS SUMMARY | 2024-10-25 10:10 | XMS_ITS | Encounter Summary ---
Author Organization [employer] Address [address] [place] [address] Care Team Providers Care Cheese Weigher Name Role Phone Unavailable Primary Care Provider Unavailabl e Encounter Details Date Type Department Care Team (Late st Contact Info) Description 11/29/2018 Transcribed Document [facility] [place] [address] [place] [address] ProviderDarwin MD [address] [place] [address] Social History Tobacco Use Types [...] Barley. Bulgur wheat. Millet. Bran muffins. Popcorn. [place] wafer crackers. Vegetables Sweet potatoes. Spinach. Kale. Artichokes. Cabbage. Broccoli. Green peas. Carrots. Squash. Fruits Berries. Pears. Apples. Oranges. Avocados. Prunes and raisins. Dried figs. Meats and Other Protein Sources [place], kidney, miranda, and soy beans. Split peas. [...] maisha has 11 g of protein. ?? [place] seeds - 1 oz has 5.5 g [...] floor. ?? Place frequently used items in nubz-io-mgmlf places ?? Keep electrical cables out of [...] ?? Using the bathroom. ?? Using household singing messenger or toxic chemicals. ?? Touching or taking [...] 5. Step down with your stronger leg. documented in this encounter Plan of Treatment Not on file documented as of this encounter Visit Diagnoses Not on filedocumented in this encounter
--- OUTSIDE RECORDS SUMMARY | 2024-10-25 10:10 | XMS_ITS | Encounter Summary ---
Author Organization [email or web address] Address [address] [place] [address] Care Team Providers Care Blind Installer Name Role Phone Unavailable Primary Care Provider Unavailabl e Encounter Details Date Type Department Care Team (Late st Contact Info) Description 11/26/2018 Transcribed Document [facility] [place] [address] [place] [address] ProviderDarwin MD [address] [place] [address] Social History Tobacco Use Types [...] Communication Barrier : None Primary Language : Gambian Any Spiritual/Cultural Needs or Requests : No [...]
--- OUTSIDE RECORDS SUMMARY | 2024-10-25 10:10 | XMS_ITS | Encounter Summary ---
Author Organization [employer] Address [address] [place] [address] Care Team Providers Care Instructional Material Director Name Role Phone Unavailable Primary Care Provider Unavailabl e Encounter Details Date Type Department Care Team (Late st Contact Info) Description 11/27/2018 Transcribed Document [facility] [place] [address] [place] [address] ProviderDarwin MD [address] [place] [address] Social History Tobacco Use Types [...] Historical ProviderMD - 11/27/2018 2:00 AM CDT Event Designer Details Entered On: 11/27/2018 6:42 EDT Performed [...]
--- OUTSIDE RECORDS SUMMARY | 2024-10-25 10:10 | XMS_ITS | Encounter Summary ---
Author Organization [employer] Address [address] [place] [address]756 Care Team Providers Care Shell Mold Bonding Machine Operator Name Role Phone Unavailable Primary Care Provider Unavailabl e Encounter Details Date Type Department Care Team (Late st Contact Info) Description 11/26/[address] [facility] [place] [facility] [address] ProviderDarwin MD [address] [place] [address] Social History Tobacco Use Types [...] & time 11/26/2018 10:45:00, Voice recognition / veterinary practice manager technology used for some documentation in this [...] scheduled to have a evaluation by a [facility] orthopedists a few weeks down the road. [...] standing. Musculoskeletal: osteoarthritis, osteoporosis. Surgical history: Appendectomy ([id number]). knee arthroscopy bilateral. left hand. bilateral cataract [...] EDT Height Source Stated Height Entry Format [place] Height/Length, CENTRAL AFRICAN (ft) 5 ft Height/Length CENTRAL AFRICAN 7 Inch CLINICALHEIGHT 170.18 cm [place] Body Weight 65.16 kg Weight Source, ED Critical estimated dosing weight Weight Entry Format [place] Weight Irish lb 197 lb CLINICALWEIGHT 89.55 kg Body [...] ED Adult Triage: ED Clinical Reconciliation: ED purchasing analyst: Normal Saline Bolus: 1,000 mL, 100 mL/Hr, IV Piggyback, 1-Time. Results review: Lab results : Lab Results 11/26/2018 12:10 EDT Urine Color Yellow Urine Appearance Clear Urine Specific [place] 1.008 Urine pH Dipstick 7.0 Urine Leukocyte Esterase Negative Urine Nitrite Negative Urine Protein Dipstick Negative Urine Glucose Dipstick Negative Urine Ketones Dipstick Negative Urine Urobilinogen Dipstick 0.2 EU/dL Urine Bilirubin Dipstick Negative mg/dL Urine Blood Dipstick Negative . Radiology results: Radiology Results (Last 48 hours) [id number] -- 11/26/2018 10:38 CT Hip LT WO [...]
--- OUTSIDE RECORDS SUMMARY | 2024-10-25 10:10 | XMS_ITS | Encounter Summary ---
Author Organization [employer] Address [address] [place] [address] Care Team Providers Care Nutrition And Dietetics Instructor Name Role Phone Unavailable Primary Care Provider Unavailabl e Encounter Details Date Type Department Care Team (Late st Contact Info) Description 11/27/2018 Transcribed Document [facility] [place] [address] [place] [address] ProviderDarwin MD [address] [place] [address] Social History Tobacco Use Types [...]
--- OUTSIDE RECORDS SUMMARY | 2024-10-25 10:10 | XMS_ITS | Encounter Summary ---
Author Organization [employer] Address [address] [place] [address] Care Team Providers Care Bell Hole Digger Name Role Phone Unavailable Primary Care Provider Unavailabl e Encounter Details Date Type Department Care Team (Late st Contact Info) Description 12/04/2018 Transcribed Document [facility] [place] [address] [place] [address] ProviderDarwin MD [address] [place] [address] Social History Tobacco Use Types [...] Policy Numbers : Insurance 1 Health Plan: [facility] Policy Number: [id number] Authorization Number: [id number] Insurance Primary Name : [facility] Medicare Authorization Status-Primary : Admit approved Reference Number-Primary : [id number] Authorization Number-Primary : [id number] Number of Days Authorized-Primary : 5 Authorized Service Begin Date-Primary : 11/26/2018 EDT Authorized Service End Date-Primary : 11/30/2018 EDT Authorization Comments-Primary : [facility] approved per fax back Historical Authorization Comments-Primary : Comment 1: [facility] d/c date and summary attached to website ---auth still pending (CRUZ, VANDANA, RN-Utilization Review 12/01/2018 11:06) Comment 2: Uploaded clinicals to [facility] Medicare via [employer] for continuing stay. (JONY PALOMO, RN-Utilization Review 11/28/2018 13:33) Comment 3: [facility] approved per fax back -- nrd 11/28 (VANDANA CRUZ, RN-Utilization Review 11/27/2018 16:05) Comment 4: Uploaded clinicals to [facility] Medicare via [employer]. (JONY PALOMO, RN-Utilization Review 11/27/2018 09:20) VANDANA CRUZ RN-Utilization Review - 12/04/2018 12:21 EDT Electronically signed by Vicente Rueda Conversion Mechanical Engineering Lecturer Ceralexander at 08/17/2022 9:55 AM CDT documented in this encounter Plan of Treatment Not on file documented as of this encounter Visit Diagnoses Not on filedocumented in this encounter
--- OUTSIDE RECORDS SUMMARY | 2024-10-25 10:10 | XMS_ITS | Encounter Summary ---
Author Organization [employer] Address [address] [place] [address] Care Team Providers Care Polygraph Examiner Name Role Phone Unavailable Primary Care Provider Unavailabl e Encounter Details Date Type Department Care Team (Late st Contact Info) Description 11/26/2018 Transcribed Document [facility] [place] Family Medicine [address] [place] [address] ProviderDarwin MD [address] [place] [address] Social History Tobacco Use Types [...] : 3 - Urgent Tracking Group : [facility] ROSIBEL SOLOMON - 11/26/2018 10:42 EDT [...] 11/26/2018 10:45:10 EDT) Problems(Active) Arthritis (SNOMED CT :9160216 ) Name of Problem: Arthritis ; Recorder: Joan Miller Nurse - other; Confirmation: Confirmed ; Classification: Medical ; Code: 5701323 ; Contributor System: IKOTECH ; Last Updated: 06/08/2017 13:34 EST ; Life Cycle Date: 06/08/2017 ; Life Cycle Status: Active ; Vocabulary: SNOMED CT Hyperlipidemia with low HDL (SNOMED CT :23087695 ) Name of Problem: Hyperlipidemia with low HDL ; Recorder: Joan Miller Nurse - other; Confirmation: Confirmed ; Classification: Medical ; Code: 96786212 ; Contributor System: PowerChart ; Last Updated: 06/08/2017 13:36 EST ; Life Cycle Date: 06/08/2017 ; Life Cycle Status: Active ; Vocabulary: SNOMED CT Seizure disorder (SNOMED CT :679991071 ) Name of Problem: Seizure disorder ; Recorder: Joan Miller Nurse - other; Confirmation: Confirmed ; Classification: Medical ; Code: 970183102 ; Contributor System: BabybeChart ; Last Updated: 06/08/2017 13:35 EST ; Life Cycle Date: 06/08/2017 ; Life Cycle Status: Active ; Vocabulary: SNOMED CT Diagnoses(Active) Hip pain-swelling Date: 11/26/2018 ; Diagnosis Type: Reason For Visit ; Confirmation: Complaint of ; Clinical Dx: Hip pain-swelling ; Classification: Medical ; Clinical Service: Emergency medicine ; Code: PNED ; Probability: 0 ; Diagnosis Code: [id number] ED Height and Weight Height Source : Stated Height Entry Format : [place] Height, Feet : 5 ft(Converted to: 152 cm, 60 Inch) Height, Inches : 7 Inch(Converted to: 0 ft 7 Inch, 17.78 cm) Clinical Height : 170.18 cm Weight Source, ED : Critical estimated dosing weight Weight Entry Format : [place] Weight, Pounds : 197 lb Clinical Dosing Weight : 89.55 kg Body Surface Area (BSA) : 2.01 m2 Body Mass Index : 30.9 kg/m2 (HI) [place] Body Weight (IBW) : 65.16 kg ROSIBEL SOLOMON 11/26/2018 10:42 EDT documented in this encounter Plan of Treatment Not on file documented as of this encounter Visit Diagnoses Not on filedocumented in this encounter
--- OUTSIDE RECORDS SUMMARY | 2024-10-25 10:10 | XMS_ITS | Continuity of Care Document ---
Author Organization [facility] Address [address] [facility], [address] [place] [address] Care Team Providers Care Apparel Manufacture Instructor Name Role Phone [facility] Referring Provider [phone] BRIDGETTE MEJIAS Referring Provider [phone] Assessment Encounter Date Assessment Date Assessment LastModified [...] recorded. Lab TSH, serum or plasma 2024 [facility], [address], [place], [address], 13:25:39 levetiracet am, serum 2024 025 [facility], [address], [place], [address], 13:25:39 valproic acid, total, serum 2024 025 [facility], [address], [place], [address], 13:25:40 CMP, serum or plasma 2024 025 [facility], [address], [place], [address], 13:25:38 Referral None recorded. Procedures None recorded. Surgeries None recorded. Imaging None recorded. Medication Orders ipratropium bromide 42 mcg (0.06 %) nasal spray 2024 [facility], [address] [place] [address], [address], 15:37:37 mupirocin 2 % topical ointment 2024 [facility], [address], [place], [id number], 15:37:42 nystatin 100,000 unit/gram topical ointment 2024 025 [facility], [address], [place], [id number], 15:37:40 nystatin 100,000 unit/gram topical cream 2024 025 [facility], [address] [place] [address], [address], 15:37:36 Patient TargetsNo targets recorded. Patient InstructionsNo instructions recorded. Reason for Referral None Reported. Results Created Date Observation Date Name Description Value Unit Range Abnormal Flag Note LastModifiedBy Organization Detail LastModifiedTime 10/25/1910/24/2024 imagi ng/di agnos tic resul t No observ ation record ed. [address], [place], [address], 10/24/2024 09:22:38 10/25/19 25 10/24/2024 imagi ng/di agnos tic resul t No observ ation record ed. [facility] [address], [place], [address], 10/24/2024 09:30:20 10/25/19 25 10/24/2024 rhyth m strip , EKG* No observ ation record ed. [place] [address], [place], [address], 10/24/2024 14:09:36 10/25/19 25 10/24/2024 , echo ardio gram No observ ation record ed. [place] [address], [place], [address], 10/24/2024 15:19:41 Result Notes None recorded. Problems Name Problem SNOMED Code Status Onset Date Resolution Date Notes Provider Name and Address Organization Details Recorded Time Gastroeso phageal reflux disease 908934761 Active Not Available [facility] 0 17:52:26 Osteoporo sis 84586254 Active Not Available [facility] 0 17:52:26 Hyperlipi demia 17490849 Active Not Available [facility] 0 17:52:26 Generaliz ed osteoarth ritis 516033314 Active Not Available [facility] 0 17:52:26 Disorder of urinary tract 77182676 Active Not Available [facility] 0 17:52:26 Acute bronchiti s 65464024 Completed 02/11/2019 Mini Freire MD [address], [address] [place] [address] , [place] [facility] 9 14:00:55 Epilepsy 50845928 Active Not Available [facility] 0 17:52:26 Disorder of prostate 80095527 Active Not Available [facility] 0 17:52:26 Malaise and fatigue 745182057 Active Not Available [facility] 0 17:52:26 Hyponatre carlota 50815184 Active Not Available [facility] 0 17:52:26 Hand eczema 250262605 Completed 02/11/2019 Mini Freire MD [address] [address], [place], [place], [address] [place] [address] , [place] [facility] 9 14:01:07 Multiple actinic keratoses 580897655 Active Not Available [facility] 0 17:52:26 Acute sinusitis 53367022 Completed 02/11/2019 Mini Freire MD [address], [address] [place] [address] , [facility] 9 14:00:49 Fatigue 65916022 Active Not Available [facility] 0 17:52:26 Abdominal pain 06014594 Active Not Available [facility] 0 17:52:26 Fracture of humerus 06536432 Active 2019 Mini Freire MD [address] [address], [place], [address] [place] [address] , [facility] 0 23:20:57 Closed fracture of right acetabulu m 09637312619 490624 Active 2019 Mini Freire MD [address] [address], [place], [address] , [facility] 23:20:44 Problem Notes None recorded. Procedures Surgical History Date Name Laterality Status Provider Name and Address Organization Details Recorded Time 03/14/20 20 reverse prosthetic total arthroplasty of right shoulder completed Mini Freire MD [address], [address], [facility] 06/13/2020 08:30:49 11/27/19 19 repair of hip completed [facility] 12/22/2018 13:37:34 04/12/20 17 Colonoscopy completed Mini Freire MD [address], [address], [facility] 05/16/2017 09:30:12 01/26/20 17 Nebulizer tx completed Mini Freire MD [address] [address], [place], [address], [facility] 01/25/2017 10:57:41 03/02/20 16 Knee arthroscopy/surge ry completed Mini Freire MD [address], [address], [facility] 12/24/2018 14:50:20 05/02/19 15 Cataract Surgery completed Mini Freire MD [address], [address], [facility] 02/11/2019 14:05:52 04/12/20 13 Colonoscopy completed Mini Freire MD [address], [address], [facility] 02/11/2019 14:04:42 05/02/19 09 Cataract Surgery completed Mini Freire MD 2017 [facility] [address], [place], [address], [facility] 12/27/2014 10:59:54 Knee Surgery completed Mini Freire MD [address], [address], [facility] 01/15/2016 10:49:41 Appendectomy completed Mini Freire MD [address] [address], [place], [address], [facility] 01/15/2016 11:05:11 Tonsillectomy completed [facility] 06/15/2011 11:38:57 Other completed [facility] 06/15/2011 11:38:57 Imaging Results None recorded. Procedure Notes None recorded. Medical Equipment None Reported. Allergies Allergen ID Allergen Name Allergen Category Reaction Reaction Severity Criticality Documentation Date Start Date Code Code System Note Provider Name and Address Organization Details Recorded Time 75552 Augmentin medicatio n rash moderate high 03/10/20232022 94794 2 RxNorm Mini Freire MD [address] [facility] [address], [place], [address] , [facility] 14:53:39 Medications Name Sig Start Date Stop [...] e 50 mcg/actua tion nasal spray,latoya pension [place] 1 spray every day by intranas al [...] Available Not Av ailable Not Available Fluzone 5631-7339 (PF) 45 mcg (15 mcg x 3)/0.5 mL intramusc ular syringe active Not Available Not Available Not Available ferrous gluconate 324 mg (37.5 mg iron) tablet Take 1 tablet every day by oral route at bedtime. 07/28 completed Not Available Not Available Not Available Fluzone 8331-6369 (PF) 45 mcg (15 mcg x 3)/0.5 mL intramusc ular syringe active Not Available Not Available Not Available Prepopik 10 mg-3.5 gram-12 gram oral powder packet 04/21 completed Not Available Not Available Not Available Fluvirin (PF) 45 mcg (15 mcg x3)/0.5 mL [...] Updated DateTime 5 165.1 cm 34.6 kg/m2 95405.2 1 g 80 /min 94 % 94 % 97.5 [degF] 110 mm[Hg] 65 mm[Hg] [facility] 5 14:40:27 Social History Question Answer Notes LastModified by Organization Details LastModified Time Tobacco Smoking Status Former Smoker Not Available [facility] 02/26/2020 03:11:18 Do You Have An Advance Directive? Yes [id number] Information not available 02/26/2020 Auto Related Injury? No Information not available 06/15/2011 Is Blood Transfusion Acceptable In An Emergency? Yes [id number] Information not available 02/26/2020 What Is Your Level Of Caffeine Consumption? Moderate [id number] Information not available 02/26/2020 How Much Tobacco Do You Chew? None [id number] Information not available 02/26/2020 Diabetes No Information not available 06/15/2011 What Type Of Diet Are You Following? 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 No Information not available 06/15/2011 When Did You Quit Smoking? 16+yearssin lopezcidionne remyte Information not available 06/13/2020 High Blood Pressure No Information not available 06/15/2011 High Cholesterol Yes Information not available 06/15/2011 Live Alone Or With Others? With Others Information not available 06/15/2011 Marital Status Informatio n not available 06/15/2011 What Was The Date Of Your Most Recent Tobacco Screening? 02/13/2024 Information not available 02/13/2024 How Many Children Do You Have? 3 [id number] Information not available 02/26/2020 What Is Your Relationship Status? Information not available 02/13/2024 Are You Passively Exposed To Smoke? No Information not available 06/15/2011 How Much Tobacco Do You Smoke? No Smoked About 10 Years And Quit In 1999 Information not available 02/08/2023 General Stress Level Low Information not available 06/15/2011 How Many Years Have You Smoked Tobacco? 10 [id number] Information not available 02/26/2020 Sex: Unknown Functional Status Question Answer Note LastModified by Organizat ion Details LastModified Time What is your level of alcohol consumption? None [id number] Information not available 02/26/2020 Are you currently employed? Yes [id number] Information not available 02/26/2020 Are you able to care for yourself? Yes [id number] Information not available 02/26/2020 What is your occupation? Other RICHARD Information not available 10/04/2024 What is your exercise level? Moderate senior exercise classes two days week [id number] Information not available 02/26/2020 Mental Status None recorded. Family History Relationship Description Onset Age of this Age Resolved Age Notes LastModified by Organization Details LastModified Time Father Diabetes mellitus colon cancer (previ ously record ed as Diabet es) ivdal Not available 09/01/2015 10:13:47 Medical History Condition Response Coronary Artery Disease N Gout N Kidney Stones N Blood Diseases N Hyperthyroidism N Depression N COPD N Hypothyroidism N Developmental or Behavioral Disorders N Eczema, [...] Disease N Pulmonary Embolism N Hypertension N Chicken Pox N Osteoporosis N Immunizations Vaccine Type Date Status Note Provider Nam e and Address Organization Details Recorded Time Influenza, high-dose, trivalent, PF 7 completed Not Available [facility] 05/19/2019 02:12:13 Influenza, split virus, trivalent, preservative 1 completed Not Available [facility] 12/21/2019 17:52:26 zoster live 0 completed Not Available [facility] 12/21/2019 17:52:26 Influenza, split virus, trivalent, preservative 2 completed Not Available [facility] 12/21/2019 17:52:26 Influenza, split virus, trivalent, preservative 3 completed Not Available [facility] 12/21/2019 17:52:26 Influenza, high-dose, trivalent, PF 8 completed Not Available [facility] 05/19/2019 02:12:13 Influenza, high-dose, trivalent, PF 9 completed Not Available [facility] 05/19/2019 02:12:11 Influenza, high-dose, quadrivalent, PF 1 completed Mini Freire MD [address] [facility] [address], [place], [address], [facility] 01/04/2021 15:13:33 Influenza, high-dose, quadrivalent, PF 1 completed [facility] 01/08/2021 08:56:50 Pneumococcal conjugate PCV 13 5 completed Not Available [facility] 12/21/2019 17:52:26 Influenza, high-dose, quadrivalent, PF 2 completed Mini Freire MD [address] [facility], [facility], [place], [address], [facility] 01/21/2022 13:18:40 Tdap 2 completed Not Available [facility] 05/19/2019 02:12:10 Influenza, high-dose, quadrivalent, PF 3 completed Not Available [facility] 01/27/2023 10:48:05 pneumococcal polysaccharide PPV23 9 completed Not Available [facility] 12/21/2019 17:52:26 Influenza, high-dose, trivalent, PF 6 completed Not Available [facility] 12/21/2019 17:52:26 pneumococcal polysaccharide PPV23 6 completed Not Available [facility] 12/21/2019 17:52:26 Influenza, high-dose, trivalent, PF 4 completed Not Available [facility] 02/06/2024 10:41:32 COVID-19, mRNA, LNP-S, PF, laverne-sucrose, 30 mcg/0.3 mL 4 completed Mini Freire MD [address] [address], [place], [place], [address] [place] [address], [place] - [facility] 02/14/2024 06:48:50 zoster, unspecified formulation 8 completed Not Available [facility] 12/21/2019 17:52:26 Hep A, adult 8 completed Not Available [facility] 12/21/2019 17:52:26 zoster, unspecified formulation 9 completed Not Available [facility] 12/21/2019 17:52:26 Hep A, adult 9 completed Not Available [facility] 12/21/2019 17:52:26 Influenza, high-dose, quadrivalent, PF 1 completed Mini Freire MD [address], [address] [place] [address], [place] - [facility] 01/04/2021 15:11:30 COVID-19, mRNA, LNP-S, PF, 30 mcg/0.3 mL dose 1 completed Mini Freire MD [address] [address], [place], [address] [place] [address], [place] - [facility] 01/18/2022 13:52:37 COVID-19, mRNA, LNP-S, PF, 30 mcg/0.3 mL dose 2 completed Mini Freire MD [address], [address] [place] [address] [place] - [facility] 01/18/2022 13:52:49 COVID-19, mRNA, LNP-S, PF, 30 mcg/0.3 mL dose 1 completed Mini Freire MD [address], [address] [place] [address], [place] [facility] 01/18/2022 13:53:07 COVID-19, mRNA, LNP-S, PF, 30 mcg/0.3 mL dose 1 completed Mini Freire MD [address], [address], [place] [facility] 01/18/2022 13:53:27 COVID-19, mRNA, LNP-S, PF, 30 mcg/0.3 mL dose 2 completed Mini Freire MD [address], [address] [place] [address], [facility] 02/23/2022 15:40:55 Tdap 3 completed Mini Freire MD [address], [address] [place] [address], [place] [facility] 02/28/2023 12:13:45 Respiratory syncytial virus (RSV) vaccine, unspecified 3 completed Mini Freire MD [address], [address] [place] [address], [facility] 02/28/2023 12:14:55 COVID-19, mRNA, LNP-S, bivalent, PF, 30 mcg/0.3 mL dose 3 completed Mini Freire MD [address], [address] [place] [address], [facility] 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 Mini Freire MD [address] [facility], [address], [place], [address], [facility] 08/31/2024 13:50:19
--- OUTSIDE RECORDS SUMMARY | 2024-10-25 10:10 | XMS_ITS | Encounter Summary ---
Author Organization [employer] Address [address] [place] [address] Care Team Providers Care Steward/Stewardess Night Name Role Phone Unavailable Primary Care Provider Unavailabl e Encounter Details Date Type Department Care Team (Late st Contact Info) Description 11/26/2018 Transcribed Document [facility] [place] Family Medicine [address] [place] [address] ProviderDarwin MD [address] [place] [address] Social History Tobacco Use Types [...]
--- OUTSIDE RECORDS SUMMARY | 2024-10-25 10:10 | XMS_ITS | Data Portability ---
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 He was found to not have rib [...] from advancing. Mr. Fuentes was admitted to [facility] for rehabilitation in January 2020 following unfortunate [...] prefer to not have to travel to [place]. 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 In January of 2019 we were finally [...] hospital post-operatively and was transferred back to [facility] on 03/18/20. His medications are reconciled and are primarily ordered through [facility]. A list of medications are provided to him. Vaccines are reviewed and updated with the covid vaccine today. We continue to encourage healthy lifestyle and safety to guard against falling. vidal Not available 02/14/2024 07:21:59 07/09/2024 07/09/2024 Mr. Fuentes returned home yesterday from a rehabilitation facility, [place]. His medications were changed and they are [...] a dose of the Midodrin. Apparently the shelter was simply dosing it three times daily. [...] Lab TSH, serum or plasma 2024 025 [employer] [facility], [address], [place], [address], 13:25:39 levetiracet am, serum 2024 025 [employer] [facility], [address], [place], [address], 13:25:39 valproic acid, total, serum 2024 025 [employer] [facility], [address], [place], [address], 5 13:25:40 CMP, serum or plasma 2024 025 [facility], [address], [place], [address], 5 13:25:38 levetiracet am, serum 2024 025 [facility], [address], [place], [address], 5 12:32:27 CMP, serum or plasma 2024 025 [facility], [address], [place], [address], 5 12:32:26 levetiracet am, serum 2023 024 [email or web address] [email or web address] [facility], [address], [place], [address], 5 15:07:08 TSH, serum or plasma 2023 024 [email or web address] [email or web address] [facility], [address], [place], [address], 5 16:22:23 BMP, serum or plasma 2023 024 [email or web address] n5 [facility], [address], [place], [address], 5 16:22:23 culture, aerobic + anaerobic 2023 024 RICHARD [facility], [address], [place], [address], 4 14:51:23 Referral home health referral 2023 024 vidal [address], [address], [facility], [place], [address], 4 12:49:46 Procedures None recorded. Surgeries None recorded. Imaging None recorded. Medication Orders ipratropium bromide 42 mcg (0.06 %) nasal spray 2024 025 [employer], [address] [place] [address], [address], 5 15:37:37 mupirocin 2 % topical ointment 2024 025 [facility][id number], [address] [place], [place], [id number], 5 15:37:42 nystatin 100,000 unit/gram topical ointment 2024 025 [facility]96586, [address], [place], [place], [id number], 5 15:37:40 nystatin 100,000 unit/gram topical cream 2024 025 [facility], [address] [place] [address], [address], 5 15:37:36 furosemide 20 mg tablet 2024 025 [facility]56810, [address] [place], [place], [id number], 5 16:05:59 metoprolol succinate ER 25 mg tablet,exte nded release 24 hr 2024 025 [facility]81679, [address] [place], [place], [id number], 5 16:06:00 midodrine 5 mg tablet 2024 025 [facility], [address], [place], [id number], 5 16:05:59 levothyroxi ne 50 mcg tablet 2023 024 [facility], [address] [place] [address], [address], 4 14:43:20 zinc (glycinate) 20 mg capsule 2023 024 Not available 4 17:15:19 Vitamin C 250 mg tablet 2023 024 Not available 4 17:15:19 azithromyci n 250 mg tablet 2023 024 [facility] #45643, [address], [place], [id number], 4 14:02:48 azithromyci n 250 mg tablet 2023 024 [facility], [address] [facility] [address], [place], [address], 4 14:02:56 levothyroxi ne 25 mcg tablet 2023 024 [facility], [address] [place] [address], [address], 5 07:42:31 doxycycline monohydrate 100 mg capsule 2023 024 [facility] #46763, [address] [place], [id number], 4 15:07:12 levofloxaci n 500 mg tablet 2023 024 [facility] #52621, [address], [place], [id number], 4 15:08:06 Prolia 60 mg/mL subcutaneou s [...] KENY W/GRA M STAIN Micro Numbe r: [id number] Test Statu s: Final Speci men Sourc e: Wound (site not speci fied) Speci men Quali ty: Adequ ate Gram Stain : Few Gram posit jacqueline cocci Resul t: Heavy growt h of Fineg oldia magna Not Available [facility] [place] [facility] [address], [place], [address], 06/27/2023 14:51:23 06/24/19 24 06/27/2023 CULTU RE, AEROB IC AND ANAER OBIC W/GRA M STAIN culture, aerobic bacteria abnormal CULTU RE, AEROB IC BACTE KENY Micro Numbe r: [id number] Test Statu s: Final Speci men Sourc [...] cefaz britney. Not Available [facility] [place] [facility] [address] [facility], [place], [address], 06/27/2023 14:51:23 07/28/19 24 07/29/2023 LIPID PANEL , STAND MIKAYLA cholesterol, total 155 mg/dL <200 normal Not Available [facility] [place] [facility] [address], [place], [address], 07/29/2023 11:43:11 07/28/19 24 07/29/2023 LIPID PANEL , STAND MIKAYLA HDL cholesterol 65 mg/dL > or = 40 normal Not Available [facility] [place] [facility] [address], [place], [address], 07/29/2023 11:43:11 07/28/19 24 07/29/2023 LIPID PANEL , STAND MIKAYLA triglyceride s 67 mg/dL <150 normal Not Available [facility] [place] [facility] [address], [place], [address], 07/29/2023 11:43:11 07/28/19 24 07/29/2023 LIPID PANEL [...] 310(1 9): 2061- 2068 (http ://ed ucati on.b-datum babsSimpliVT. com/f aq/FA Q164) Not Available [facility] [place] [facility] [address], [place], [address], 07/29/2023 11:43:11 07/28/19 24 07/29/2023 LIPID PANEL , STAND MIKAYLA chol/HDLC ratio 2.4 (calc ) <5.0 normal Not Available [facility] [place] [facility] [address], [place], [address], 07/29/2023 11:43:11 07/28/19 24 07/29/2023 LIPID PANEL , STAND MIKAYLA non HDL cholesterol 90 mg/dL _(zully c) <130 normal For patie nts with diabe sherri plus 1 major ASCVD risk facto r, treat ing to a non-H DL-C goal of <100 mg/dL (LDL- C of <70 mg/dL ) is consi dered a thera peuti c optio n. Not Available [facility] [place] [facility] [address], [place], [address], 07/29/2023 11:43:11 07/28/19 24 07/29/2023 COMPR EHENS JACQUELINE METAB OLIC PANEL glucose 81 mg/dL 65-99 normal Fasti ng refer ence inter nkechi Not Available [facility] [place] [facility] [address] [place], [address], 07/29/2023 11:43:12 07/28/19 24 07/29/2023 COMPR EHENS JACQUELINE METAB OLIC PANEL urea nitrogen (BUN) 16 mg/dL 7-25 normal Not Available [facility] [address] [place], [address], 07/29/2023 11:43:12 07/28/19 24 07/29/2023 COMPR EHENS JACQUELINE METAB OLIC PANEL creatinine 1.08 mg/dL 0.70-1 .22 normal Not Available [facility] [address] [place], [address], 07/29/2023 11:43:12 07/28/19 24 07/29/2023 COMPR EHENS JACQUELINE METAB OLIC PANEL eGFR 69 mL/mi n/1.7 3m2 > or = 60 normal Not Available [facility] [address] [place], [address], 07/29/2023 11:43:12 07/28/19 24 07/29/2023 COMPR EHENS JACQUELINE METAB OLIC PANEL BUN/creatini ne ratio SEE NOTE: (calc ) 6-22 Not Repor cindy: BUN and Creat inine are withi n refer ence range . Not Available [facility] [address] [place], [address], 07/29/2023 11:43:12 07/28/19 24 07/29/2023 COMPR EHENS JACQUELINE METAB OLIC PANEL sodium 131 mmol/ L 135-14 6 low Not Available [facility] [address] [place], [address], 07/29/2023 11:43:12 07/28/19 24 07/29/2023 COMPR EHENS JACQUELINE METAB OLIC PANEL potassium 4.6 mmol/ L 3.5-5. 3 normal Not Available [facility] [place] [facility] [address] [place], [address], 07/29/2023 11:43:12 07/28/19 24 07/29/2023 COMPR EHENS JACQUELINE METAB OLIC PANEL chloride 96 mmol/ L 98-110 low Not Available [facility] [address] [place], [address], 07/29/2023 11:43:12 07/28/19 24 07/29/2023 COMPR EHENS JACQUELINE METAB OLIC PANEL carbon dioxide 24 mmol/ L 20-32 normal Not Available [facility] [address] [place], [address], 07/29/2023 11:43:12 07/28/19 24 07/29/2023 COMPR EHENS JACQUELINE METAB OLIC PANEL calcium 9.0 mg/dL 8.6-10 .3 normal Not Available [facility] [address] [place], [address], 07/29/2023 11:43:12 07/28/19 24 07/29/2023 COMPR EHENS JACQUELINE METAB OLIC PANEL protein, total 6.6 g/dL 6.1-8. 1 normal Not Available [facility] [address] [place] [address], [address], 07/29/2023 11:43:12 07/28/19 24 07/29/2023 COMPR EHENS JACQUELINE METAB OLIC PANEL albumin 3.5 g/dL 3.6-5. 1 low Not Available [facility] [place], [address], 07/29/2023 11:43:12 07/28/19 24 07/29/2023 COMPR EHENS JACQUELINE METAB OLIC PANEL globulin 3.1 g/dL_ (calc ) 1.9-3. 7 normal Not Available [facility] [address] [place], [address], 07/29/2023 11:43:12 07/28/19 24 07/29/2023 COMPR EHENS JACQUELINE METAB OLIC PANEL albumin/glob ulin ratio 1.1 (calc ) 1.0-2. 5 normal Not Available [facility] [address] [place], [address], 07/29/2023 11:43:12 07/28/19 24 07/29/2023 COMPR EHENS JACQUELINE METAB OLIC PANEL bilirubin, total 0.5 mg/dL 0.2-1. 2 normal Not Available [facility] [address] [place], [address], 07/29/2023 11:43:12 07/28/19 24 07/29/2023 COMPR EHENS JACQUELINE METAB OLIC PANEL alkaline phosphatase 52 U/L 35-144 normal Not Available [facility] [place] [facility] [address] [place], [address], 07/29/2023 11:43:12 07/28/19 24 07/29/2023 COMPR EHENS JACQUELINE METAB OLIC PANEL AST 25 U/L 10-35 normal Not Available [facility] [address] [place], [address], 07/29/2023 11:43:12 07/28/19 24 07/29/2023 COMPR EHENS JACQUELINE METAB OLIC PANEL ALT 12 U/L 9-46 normal Not Available [facility] [address] [place], [address], 07/29/2023 11:43:12 07/28/19 24 07/29/2023 TSH TSH 5.27 mIU/L 0.40-4 .50 high Not Available [facility] [address] [place], [address], 07/29/2023 11:43:13 07/28/19 24 07/29/2023 CBC (INCL UDES DIFF/ PLT) white blood cell count 6.2 thous and/u L 3.8-10 .8 normal Not Available [facility] [place] [facility] [address], [place], [address], 07/29/2023 11:43:13 07/28/19 24 07/29/2023 CBC (INCL UDES DIFF/ PLT) red blood cell count 4.14 rodrigo on/uL 4.20-5 .80 low Not Available [facility] [place] [facility] [address], [place], [address], 07/29/2023 11:43:13 07/28/19 24 07/29/2023 CBC (INCL UDES DIFF/ PLT) hemoglobin 13.9 g/dL 13.2-1 7.1 normal Not Available [facility] [place] [facility] [address], [place], [address], 07/29/2023 11:43:13 07/28/19 24 07/29/2023 CBC (INCL UDES DIFF/ PLT) hematocrit 40.4 % 38.5-5 0.0 normal Not Available [facility] [place] [facility] [address], [place], [address], 07/29/2023 11:43:13 07/28/19 24 07/29/2023 CBC (INCL UDES DIFF/ PLT) MCV 97.6 fL 80.0-1 00.0 normal Not Available [facility] [place] [facility] [address], [place], [address], 07/29/2023 11:43:13 07/28/19 24 07/29/2023 CBC (INCL UDES DIFF/ PLT) MCH 33.6 pg 27.0-3 3.0 high Not Available [facility] [place] [facility] [address], [place], [address], 07/29/2023 11:43:13 07/28/19 24 07/29/2023 CBC (INCL UDES DIFF/ PLT) MCHC 34.4 g/dL 32.0-3 6.0 normal Not Available [facility] [place] [facility] [address], [place], [address], 07/29/2023 11:43:13 07/28/19 24 07/29/2023 CBC (INCL UDES DIFF/ PLT) RDW 14.3 % 11.0-1 5.0 normal Not Available [facility] [place] [facility] [address], [place], [address], 07/29/2023 11:43:13 07/28/19 24 07/29/2023 CBC (INCL UDES DIFF/ PLT) platelet count 197 thous and/u L 140-40 0 normal Not Available [facility] [place] [facility] [address], [place], [address], 07/29/2023 11:43:13 07/28/19 24 07/29/2023 CBC (INCL UDES DIFF/ PLT) MPV 10.8 fL 7.5-12 .5 normal Not Available [facility] [place] [facility] [address], [place], [address], 07/29/2023 11:43:13 07/28/19 24 07/29/2023 CBC (INCL UDES DIFF/ PLT) absolute neutrophils 3081 cells /uL 1500-7 800 normal Not Available [facility] [place] [facility] [address], [place], [address], 07/29/2023 11:43:13 07/28/19 24 07/29/2023 CBC (INCL UDES DIFF/ PLT) absolute lymphocytes 2263 cells /uL 850-39 00 normal Not Available [facility] [place] [facility] [address], [place], [address], 07/29/2023 11:43:13 07/28/19 24 07/29/2023 CBC (INCL UDES DIFF/ PLT) absolute monocytes 707 cells /uL 200-95 0 normal Not Available [facility] [place] [facility] [address], [place], [address], 07/29/2023 11:43:13 07/28/19 24 07/29/2023 CBC (INCL UDES DIFF/ PLT) absolute eosinophils 130 cells /uL 15-500 normal Not Available [facility] [place] [facility] [address], [place], [address], 07/29/2023 11:43:13 07/28/19 24 07/29/2023 CBC (INCL UDES DIFF/ PLT) absolute basophils 19 cells /uL 0-200 normal Not Available [facility] [place] [facility] [address], [place], [address], 07/29/2023 11:43:13 07/28/19 24 07/29/2023 CBC (INCL UDES DIFF/ PLT) neutrophils 49.7 % normal Not Available [facility] [place] [facility] [address], [place], [address], 07/29/2023 11:43:13 07/28/19 24 07/29/2023 CBC (INCL UDES DIFF/ PLT) lymphocytes 36.5 % normal Not Available [facility] [place] [facility] [address], [place], [address], 07/29/2023 11:43:13 07/28/19 24 07/29/2023 CBC (INCL UDES DIFF/ PLT) monocytes 11.4 % normal Not Available [facility] [place] [facility] [address], [place], [address], 07/29/2023 11:43:13 07/28/19 24 07/29/2023 CBC (INCL UDES DIFF/ PLT) eosinophils 2.1 % normal Not Available [facility] [place] [facility] [address], [place], [address], 07/29/2023 11:43:13 07/28/19 24 07/29/2023 CBC (INCL UDES DIFF/ PLT) basophils 0.3 % normal Not Available [facility] [place] [facility] [address] [place], [address], 07/29/2023 11:43:13 07/28/19 24 07/29/2023 EXTRA SPECI MEN extra tube received An extra speci men was recei ryan with no test reque sted. The speci men will be maint ained in stora ge in case addit ional testi ng is neede dCatalina Kolb e call the nicola bob [facility] for anthony gary . Not Available [facility] [place] [facility] [address] [place], [address], 07/29/2023 11:43:14 07/28/19 24 07/29/2023 EXTRA SPECI MEN specimen type received PLASMA , VIAL POUR-O FF Not Available [facility] [place] [facility] [address] [place], [address], 07/29/2023 11:43:14 10/06/19 24 10/07/2023 BASIC METAB OLIC PANEL glucose 73 mg/dL 65-99 normal Fasti ng refer ence inter nkechi Not Available [facility] [place] [facility] [address] [place], [address], 10/07/2023 12:34:39 10/06/19 24 10/07/2023 BASIC METAB OLIC PANEL urea nitrogen (BUN) 23 mg/dL 7-25 normal Not Available [facility] [place] [facility] [address] [place], [address], 10/07/2023 12:34:39 10/06/19 24 10/07/2023 BASIC METAB OLIC PANEL creatinine 1.22 mg/dL 0.70-1 .22 normal Not Available [facility] [place] [facility] [address] [place], [address], 10/07/2023 12:34:39 10/06/19 24 10/07/2023 BASIC METAB OLIC PANEL eGFR 60 mL/mi n/1.7 3m2 > or = 60 normal Not Available [facility] [address] [place], [address], 10/07/2023 12:34:39 10/06/19 24 10/07/2023 BASIC METAB OLIC PANEL BUN/creatini ne ratio SEE NOTE: (calc ) 6-22 Not Repor cindy: BUN and Creat inine are withi n refer ence range . Not Available [facility] [place] [facility] [address] [place], [address], 10/07/2023 12:34:39 10/06/19 24 10/07/2023 BASIC METAB OLIC PANEL sodium 131 mmol/ L 135-14 6 low Not Available [facility] [place] [facility] [address] [place], [address], 10/07/2023 12:34:39 10/06/19 24 10/07/2023 BASIC METAB OLIC PANEL potassium 4.3 mmol/ L 3.5-5. 3 normal Not Available [facility] [address] [place], [address], 10/07/2023 12:34:39 10/06/19 24 10/07/2023 BASIC METAB OLIC PANEL chloride 96 mmol/ L 98-110 low Not Available [facility] [place] [facility] [address] [place], [address], 10/07/2023 12:34:39 10/06/19 24 10/07/2023 BASIC METAB OLIC PANEL carbon dioxide 28 mmol/ L 20-32 normal Not Available [facility] [address] [place], [address], 10/07/2023 12:34:39 10/06/19 24 10/07/2023 BASIC METAB OLIC PANEL calcium 8.9 mg/dL 8.6-10 .3 normal Not Available [facility] [place] [facility] [address] [place], [address], 10/07/2023 12:34:39 10/06/19 24 10/07/2023 CBC (INCL UDES DIFF/ PLT) white blood cell count 6.7 thous and/u L 3.8-10 .8 normal Not Available [facility] [place] [facility] [address] [place], [address], 10/07/2023 12:34:40 10/06/19 24 10/07/2023 CBC (INCL UDES DIFF/ PLT) red blood cell count 3.89 rodrigo on/uL 4.20-5 .80 low Not Available [facility] [place] [facility] [address] [place], [address], 10/07/2023 12:34:40 10/06/19 24 10/07/2023 CBC (INCL UDES DIFF/ PLT) hemoglobin 13.0 g/dL 13.2-1 7.1 low Not Available [facility] [place] [facility] [address] [place], [address], 10/07/2023 12:34:40 10/06/19 24 10/07/2023 CBC (INCL UDES DIFF/ PLT) hematocrit 38.3 % 38.5-5 0.0 low Not Available [facility] [place] [facility] [address] [place], [address], 10/07/2023 12:34:40 10/06/19 24 10/07/2023 CBC (INCL UDES DIFF/ PLT) MCV 98.5 fL 80.0-1 00.0 normal Not Available [facility] [place] [facility] [address] [place], [address], 10/07/2023 12:34:40 10/06/19 24 10/07/2023 CBC (INCL UDES DIFF/ PLT) MCH 33.4 pg 27.0-3 3.0 high Not Available [facility] [place] [facility] [address] [place], [address], 10/07/2023 12:34:40 10/06/19 24 10/07/2023 CBC (INCL UDES DIFF/ PLT) MCHC 33.9 g/dL 32.0-3 6.0 normal Not Available [facility] [place] [facility] [address] [place], [address], 10/07/2023 12:34:40 10/06/19 24 10/07/2023 CBC (INCL UDES DIFF/ PLT) RDW 13.3 % 11.0-1 5.0 normal Not Available [facility] [place] [facility] [address] [place], [address], 10/07/2023 12:34:40 10/06/19 24 10/07/2023 CBC (INCL UDES DIFF/ PLT) platelet count 147 thous and/u L 140-40 0 normal Not Available [facility] [place] [facility] [address] [place], [address], 10/07/2023 12:34:40 10/06/19 24 10/07/2023 CBC (INCL UDES DIFF/ PLT) MPV 10.2 fL 7.5-12 .5 normal Not Available [facility] [place] [facility] [address], [place], [address], 10/07/2023 12:34:40 10/06/19 24 10/07/2023 CBC (INCL UDES DIFF/ PLT) absolute neutrophils 3678 cells /uL 1500-7 800 normal Not Available [facility] [address], [place], [address], 10/07/2023 12:34:40 10/06/19 24 10/07/2023 CBC (INCL UDES DIFF/ PLT) absolute lymphocytes 1956 cells /uL 850-39 00 normal Not Available [facility] [place] [facility] [address], [place], [address], 10/07/2023 12:34:40 10/06/19 24 10/07/2023 CBC (INCL UDES DIFF/ PLT) absolute monocytes 911 cells /uL 200-95 0 normal Not Available [facility] [place] [facility] [address], [place], [address], 10/07/2023 12:34:40 10/06/19 24 10/07/2023 CBC (INCL UDES DIFF/ PLT) absolute eosinophils 127 cells /uL 15-500 normal Not Available [facility] [place] [facility] [address], [place], [address], 10/07/2023 12:34:40 10/06/19 24 10/07/2023 CBC (INCL UDES DIFF/ PLT) absolute basophils 27 cells /uL 0-200 normal Not Available [facility] [place] [facility] [address], [place], [address], 10/07/2023 12:34:40 10/06/19 24 10/07/2023 CBC (INCL UDES DIFF/ PLT) neutrophils 54.9 % normal Not Available [facility] [place] [facility] [address], [place], [address], 10/07/2023 12:34:40 10/06/19 24 10/07/2023 CBC (INCL UDES DIFF/ PLT) lymphocytes 29.2 % normal Not Available [facility] [place] [facility] [address], [place], [address], 10/07/2023 12:34:40 10/06/19 24 10/07/2023 CBC (INCL UDES DIFF/ PLT) monocytes 13.6 % normal Not Available [facility] [place] [facility] [address], [place], [address], 10/07/2023 12:34:40 10/06/19 24 10/07/2023 CBC (INCL UDES DIFF/ PLT) eosinophils 1.9 % normal Not Available [facility] [place] [facility] [address] [facility] [place], [address], 10/07/2023 12:34:40 10/06/19 24 10/07/2023 CBC (INCL UDES DIFF/ PLT) basophils 0.4 % normal Not Available [facility] [place] [facility] [address] [facility] [facility] [place], [address], 10/07/2023 12:34:40 10/06/19 24 10/07/2023 VALPR OIC ACID valproic acid 102.0 mg/L 50.0-1 00.0 high Not Available [facility] [address] [place], [address], 10/07/2023 12:34:40 02/06/20 24 02/09/2024 LIPID PANEL , STAND MIKAYLA cholesterol, total 158 mg/dL <200 normal Not Available [facility] [place] [facility] [address] [facility] [place], [address], 02/09/2024 10:25:29 02/06/20 24 02/09/2024 LIPID PANEL , STAND MIKAYLA HDL cholesterol 71 mg/dL > or = 40 normal Not Available [facility] [address] [facility] [facility] [place], [address], 02/09/2024 10:25:29 02/06/20 24 02/09/2024 LIPID PANEL , STAND MIKAYLA triglyceride s 66 mg/dL <150 normal Not Available [facility] [address] [place], [address], 02/09/2024 10:25:29 02/06/20 24 02/09/2024 LIPID PANEL [...] 310(1 9): 2061- 2068 (http ://ed ucati on.[employer]. [employer]/f aq/FA Q164) Not Available [facility] [address], [place], [address], 02/09/2024 10:25:29 02/06/20 24 02/09/2024 LIPID PANEL , STAND MIKAYLA chol/HDLC ratio 2.2 (calc ) <5.0 normal Not Available [facility] [address], [place], [address], 02/09/2024 10:25:29 02/06/20 24 02/09/2024 LIPID PANEL , STAND MIKAYLA non HDL cholesterol 87 mg/dL _(zully c) <130 normal For patie nts with diabe sherri plus 1 major ASCVD risk facto r, treat ing to a non-H DL-C goal of <100 mg/dL (LDL- C of <70 mg/dL ) is consi dered a thera peuti c optio n. Not Available [facility] [place] [facility] [address], [place], [address], 02/09/2024 10:25:29 02/06/20 24 02/09/2024 COMPR EHENS JACQUELINE METAB OLIC PANEL glucose 82 mg/dL 65-99 normal Fasti ng refer ence inter nkechi Not Available [facility] [place] [facility] [address], [place], [address], 02/09/2024 10:25:30 02/06/20 24 02/09/2024 COMPR EHENS JACQUELINE METAB OLIC PANEL urea nitrogen (BUN) 19 mg/dL 7-25 normal Not Available [facility] [place] [facility] [address] [place], [address], 02/09/2024 10:25:30 02/06/20 24 02/09/2024 COMPR EHENS JACQUELINE METAB OLIC PANEL creatinine 1.23 mg/dL 0.70-1 .22 high Not Available [facility] [address] [place], [address], 02/09/2024 10:25:30 02/06/20 24 02/09/2024 COMPR EHENS JACQUELINE METAB OLIC PANEL eGFR 59 mL/mi n/1.7 3m2 > or = 60 low Not Available [facility] [address] [place], [address], 02/09/2024 10:25:30 02/06/20 24 02/09/2024 COMPR EHENS JACQUELINE METAB OLIC PANEL BUN/creatini ne ratio 15 (calc ) 6-22 normal Not Available [facility] [address] [place], [address], 02/09/2024 10:25:30 02/06/20 24 02/09/2024 COMPR EHENS JACQUELINE METAB OLIC PANEL sodium 129 mmol/ L 135-14 6 low Not Available [facility] [address] [place], [address], 02/09/2024 10:25:30 02/06/20 24 02/09/2024 COMPR EHENS JACQUELINE METAB OLIC PANEL potassium 4.2 mmol/ L 3.5-5. 3 normal Not Available [facility] [address] [place], [address], 02/09/2024 10:25:30 02/06/20 24 02/09/2024 COMPR EHENS JACQUELINE METAB OLIC PANEL chloride 95 mmol/ L 98-110 low Not Available [facility] [address] [place], [address], 02/09/2024 10:25:30 02/06/20 24 02/09/2024 COMPR EHENS JACQUELINE METAB OLIC PANEL carbon dioxide 22 mmol/ L 20-32 normal Not Available [facility] [address] [place], [address], 02/09/2024 10:25:30 02/06/20 24 02/09/2024 COMPR EHENS JACQUELINE METAB OLIC PANEL calcium 9.2 mg/dL 8.6-10 .3 normal Not Available [facility] [address] [place], [address], 02/09/2024 10:25:30 02/06/20 24 02/09/2024 COMPR EHENS JACQUELINE METAB OLIC PANEL protein, total 6.6 g/dL 6.1-8. 1 normal Not Available [facility] [address] [place], [address], 02/09/2024 10:25:30 02/06/20 24 02/09/2024 COMPR EHENS JACQUELINE METAB OLIC PANEL albumin 3.7 g/dL 3.6-5. 1 normal Not Available [facility] [address] [place], [address], 02/09/2024 10:25:30 02/06/20 24 02/09/2024 COMPR EHENS JACQUELINE METAB OLIC PANEL globulin 2.9 g/dL_ (calc ) 1.9-3. 7 normal Not Available [facility] [address] [place], [address], 02/09/2024 10:25:30 02/06/20 24 02/09/2024 COMPR EHENS JACQUELINE METAB OLIC PANEL albumin/glob ulin ratio 1.3 (calc ) 1.0-2. 5 normal Not Available [facility] [employer] [facility] [address] [facility] [place], [address], 02/09/2024 10:25:30 02/06/20 24 02/09/2024 COMPR EHENS JACQUELINE METAB OLIC PANEL bilirubin, total 0.5 mg/dL 0.2-1. 2 normal Not Available [facility] [employer] [facility] [address] [facility] [place], [address], 02/09/2024 10:25:30 02/06/20 24 02/09/2024 COMPR EHENS JACQUELINE METAB OLIC PANEL alkaline phosphatase 37 U/L 35-144 normal Not Available [facility] [employer] [facility] [address] [place], [address], 02/09/2024 10:25:30 02/06/20 24 02/09/2024 COMPR EHENS JACQUELINE METAB OLIC PANEL AST 23 U/L 10-35 normal Not Available [facility] [employer] [facility] [address] [place], [address], 02/09/2024 10:25:30 02/06/20 24 02/09/2024 COMPR EHENS JACQUELINE METAB OLIC PANEL ALT 11 U/L 9-46 normal Not Available [employer] [facility] [address] [place], [address], 02/09/2024 10:25:30 02/06/20 24 02/09/2024 TSH TSH 5.03 mIU/L 0.40-4 .50 high Not Available [employer] [facility] [address] [place], [address], 02/09/2024 10:25:31 02/06/20 24 02/09/2024 CBC (INCL UDES DIFF/ PLT) white blood cell count 6.9 thous and/u L 3.8-10 .8 normal Not Available [facility] [place] [facility] [address] [place], [address], 02/09/2024 10:25:31 02/06/20 24 02/09/2024 CBC (INCL UDES DIFF/ PLT) red blood cell count 4.36 rodrigo on/uL 4.20-5 .80 normal Not Available [facility] [address] [place], [address], 02/09/2024 10:25:31 02/06/20 24 02/09/2024 CBC (INCL UDES DIFF/ PLT) hemoglobin 13.8 g/dL 13.2-1 7.1 normal Not Available [facility] [address] [place], [address], 02/09/2024 10:25:31 02/06/20 24 02/09/2024 CBC (INCL UDES DIFF/ PLT) hematocrit 42.1 % 38.5-5 0.0 normal Not Available [facility] [address] [place], [address], 02/09/2024 10:25:31 02/06/20 24 02/09/2024 CBC (INCL UDES DIFF/ PLT) MCV 96.6 fL 80.0-1 00.0 normal Not Available [facility] [place], [address], 02/09/2024 10:25:31 02/06/20 24 02/09/2024 CBC (INCL UDES DIFF/ PLT) MCH 31.7 pg 27.0-3 3.0 normal Not Available [facility] [address] [place], [address], 02/09/2024 10:25:31 02/06/20 24 02/09/2024 CBC (INCL UDES DIFF/ PLT) MCHC 32.8 g/dL 32.0-3 6.0 normal For adult s, a sligh t decre ase in the calcu lated MCHC value (in the range of 30 to 32 g/dL) is most likel y not clini arnel signi garrett t; chantal er, it tao d be inter prete d with cauti on in [facility] with other red cell rogers eters and the patie nt's clini zully condi tion. Not Available [facility] [place] [facility] [address] [facility], [place], [address], 02/09/2024 10:25:31 02/06/20 24 02/09/2024 CBC (INCL UDES DIFF/ PLT) RDW 14.4 % 11.0-1 5.0 normal Not Available [facility] [place] [facility] [address] [facility] [place], [address], 02/09/2024 10:25:31 02/06/20 24 02/09/2024 CBC (INCL UDES DIFF/ PLT) platelet count 184 thous and/u L 140-40 0 normal Not Available [facility] [place] [facility] [address] [facility], [place], [address], 02/09/2024 10:25:31 02/06/20 24 02/09/2024 CBC (INCL UDES DIFF/ PLT) MPV 11.0 fL 7.5-12 .5 normal Not Available [facility] [place] [facility] [address] [facility] [place], [address], 02/09/2024 10:25:31 02/06/20 24 02/09/2024 CBC (INCL UDES DIFF/ PLT) absolute neutrophils 3271 cells /uL 1500-7 800 normal Not Available [facility] [place] [facility] [address] [facility] [place], [address], 02/09/2024 10:25:31 02/06/20 24 02/09/2024 CBC (INCL UDES DIFF/ PLT) absolute lymphocytes 2870 cells /uL 850-39 00 normal Not Available [facility] [place] [facility] [address], [place], [address], 02/09/2024 10:25:31 02/06/2002/09/2024 CBC (INCL UDES DIFF/ PLT) absolute monocytes 649 cells /uL 200-95 0 normal Not Available [facility] [place] [facility] [address], [place], [address], 02/09/2024 10:25:31 02/06/20 24 02/09/2024 CBC (INCL UDES DIFF/ PLT) absolute eosinophils 90 cells /uL 15-500 normal Not Available [facility] [place] [facility] [address], [place], [address], 02/09/2024 10:25:31 02/06/20 24 02/09/2024 CBC (INCL UDES DIFF/ PLT) absolute basophils 21 cells /uL 0-200 normal Not Available [facility] [place] [facility] [address], [place], [address], 02/09/2024 10:25:31 02/06/20 24 02/09/2024 CBC (INCL UDES DIFF/ PLT) neutrophils 47.4 % normal Not Available [facility] [place] [facility] [address], [place], [address], 02/09/2024 10:25:31 02/06/20 24 02/09/2024 CBC (INCL UDES DIFF/ PLT) lymphocytes 41.6 % normal Not Available [facility] [place] [facility] [address], [place], [address], 02/09/2024 10:25:31 02/06/20 24 02/09/2024 CBC (INCL UDES DIFF/ PLT) monocytes 9.4 % normal Not Available [facility] [place] [facility] [address], [place], [address], 02/09/2024 10:25:31 10/07/02/09/2024 CBC (INCL UDES DIFF/ PLT) eosinophils 1.3 % normal Not Available [facility] [place] [facility] [address] [place], [address], 02/09/2024 10:25:31 02/06/20 24 02/09/2024 CBC (INCL UDES DIFF/ PLT) basophils 0.3 % normal Not Available [facility] [place] [facility] [address] [place], [address], 02/09/2024 10:25:31 02/06/20 24 02/09/2024 LEVET IRACE FOWLER levetiraceta m 87.7 mcg/m L high Refer ence Range : 12.0- 46.0 Toxic level is not well estab lishe d. Inter preta tion shoul d inclu de a clini zully evalu ation . For addit ional infor glen babcock e refer to http: //[facility].Que stDia gnost ics.c om/fa q/FAQ [...] for clini zully purpo ses. Not Available [facility] [place] [facility] [address] [place], [address], 02/09/2024 10:25:32 02/06/2002/09/2024 VALPR OIC ACID valproic acid 113.2 mg/L 50.0-1 00.0 high Not Available [facility] [place] [facility] [address] [place], [address], 02/09/2024 10:25:33 07/10/19 25 07/13/2024 COMPR EHENS JACQUELINE METAB OLIC PANEL glucose 122 mg/dL 65-99 high Fasti ng refer ence inter nkechi For someo ne witho ut known diabe sherri, a gluco se value betwe en 100 and 125 mg/dL is consi stent with predi abete s and shoul d be confi rmed with a follo w-up test. Not Available [employer] [address] [place], [address], 07/13/2024 12:32:26 07/10/19 25 07/13/2024 COMPR EHENS JACQUELINE METAB OLIC PANEL urea nitrogen (BUN) 17 mg/dL 7-25 normal Not Available [facility] [address] [place], [address], 07/13/2024 12:32:26 07/10/19 25 07/13/2024 COMPR EHENS JACQUELINE METAB OLIC PANEL creatinine 1.17 mg/dL 0.70-1 .22 normal Not Available [facility] [address] [place], [address], 07/13/2024 12:32:26 07/10/19 25 07/13/2024 COMPR EHENS JACQUELINE METAB OLIC PANEL eGFR 62 mL/mi n/1.7 3m2 > or = 60 normal Not Available [employer] [facility] [address] [place], [address], 07/13/2024 12:32:26 07/10/19 25 07/13/2024 COMPR EHENS JACQUELINE METAB OLIC PANEL BUN/creatini ne ratio SEE NOTE: (calc ) 6-22 Not Repor cindy: BUN and Creat inine are withi n refer ence range . Not Available [facility] [address] [place], [address], 07/13/2024 12:32:26 07/10/19 25 07/13/2024 COMPR EHENS JACQUELINE METAB OLIC PANEL sodium 134 mmol/ L 135-14 6 low Not Available [facility] [address] [facility] [place], [address], 07/13/2024 12:32:26 07/10/19 25 07/13/2024 COMPR EHENS JACQUELINE METAB OLIC PANEL potassium 4.2 mmol/ L 3.5-5. 3 normal Not Available [facility] [address] [place], [address], 07/13/2024 12:32:26 07/10/19 25 07/13/2024 COMPR EHENS JACQUELINE METAB OLIC PANEL chloride 98 mmol/ L 98-110 normal Not Available [facility] [address] [place] [address], [address], 07/13/2024 12:32:26 07/10/19 25 07/13/2024 COMPR EHENS JACQUELINE METAB OLIC PANEL carbon dioxide 30 mmol/ L 20-32 normal Not Available [facility] [address] [place], [address], 07/13/2024 12:32:26 07/10/19 25 07/13/2024 COMPR EHENS JACQUELINE METAB OLIC PANEL calcium 9.3 mg/dL 8.6-10 .3 normal Not Available [facility] [address] [place] [address], [address], 07/13/2024 12:32:26 07/10/19 25 07/13/2024 COMPR EHENS JACQUELINE METAB OLIC PANEL protein, total 6.4 g/dL 6.1-8. 1 normal Not Available [facility] [place], [address], 07/13/2024 12:32:26 07/10/19 25 07/13/2024 COMPR EHENS JACQUELINE METAB OLIC PANEL albumin 3.3 g/dL 3.6-5. 1 low Not Available [facility] [address] [place], [place] [address], [address], 07/13/2024 12:32:26 07/10/19 25 07/13/2024 COMPR EHENS JACQUELINE METAB OLIC PANEL globulin 3.1 g/dL_ (calc ) 1.9-3. 7 normal Not Available [facility] [address] [facility] [place], [address], 07/13/2024 12:32:26 07/10/19 25 07/13/2024 COMPR EHENS JACQUELINE METAB OLIC PANEL albumin/glob ulin ratio 1.1 (calc ) 1.0-2. 5 normal Not Available [facility] [address] [facility] [place] [place], [address], 07/13/2024 12:32:26 07/10/19 25 07/13/2024 COMPR EHENS JACQUELINE METAB OLIC PANEL bilirubin, total 0.6 mg/dL 0.2-1. 2 normal Not Available [facility] [place] [facility] [address] [facility], [place], [address], 07/13/2024 12:32:26 07/10/19 25 07/13/2024 COMPR EHENS JACQUELINE METAB OLIC PANEL alkaline phosphatase 61 U/L 35-144 normal Not Available [facility] [employer] [facility] [address] [facility] [place], [address], 07/13/2024 12:32:26 07/10/19 25 07/13/2024 COMPR EHENS JACQUELINE METAB OLIC PANEL AST 19 U/L 10-35 normal Not Available [facility] [address] [facility] [place] [place], [address], 07/13/2024 12:32:26 07/10/19 25 07/13/2024 COMPR EHENS JACQUELINE METAB OLIC PANEL ALT 9 U/L 9-46 normal Not Available [facility] [address] [facility] [place] [place], [address], 07/13/2024 12:32:26 07/10/19 25 07/13/2024 LEVET IRACE FOWLER levetiraceta m 54.0 mcg/m L high Refer ence Range : 12.0- 46.0 Toxic level is not well estab lishe d. Inter preta tion shoul d inclu de a clini zully evalu ation . For addit ional infor glen babcock e refer to http: //[facility] cativana n.Que stDia gnost ics.c om/fa q/FAQ 180 (This link is being provi ded for infor mativana nal/e ducat ional purpo ses only. ) This test was devel oped and its josé miguel tical perfo rmanc e tawnya cteri stics have been deter mined by [employer]. It has not been clear ed or appro ryan by the FDA. This assay has been valid ated pursu ant to the CLIA regul ation s and is used for clini zully purpo ses. Not Available [facility] [place] [facility] [address] [place], [address], 07/13/2024 12:32:27 08/31/1909/04/2024 COMPR EHENS JACQUELINE METAB OLIC PANEL glucose 121 mg/dL 65-99 high Fasti ng refer ence inter nkechi For someo ne witho ut known diabe sherri, a gluco se value betwe en 100 and 125 mg/dL is consi stent with predi abete s and shoul d be confi rmed with a follo w-up test. Not Available [facility] [place] [facility] [address] [place], [address], 09/04/2024 13:25:37 08/31/19 25 09/04/2024 COMPR EHENS JACQUELINE METAB OLIC PANEL urea nitrogen (BUN) 21 mg/dL 7-25 normal Not Available [facility] [place] [facility] [address], [place], [address], 09/04/2024 13:25:37 08/31/19 25 09/04/2024 COMPR EHENS JACQUELINE METAB OLIC PANEL creatinine 1.39 mg/dL 0.70-1 .22 high Not Available [facility] [address] [place], [address], 09/04/2024 13:25:37 08/31/19 25 09/04/2024 COMPR EHENS JACQUELINE METAB OLIC PANEL eGFR 51 mL/mi n/1.7 3m2 > or = 60 low Not Available [facility] [address] [place], [address], 09/04/2024 13:25:37 08/31/19 25 09/04/2024 COMPR EHENS JACQUELINE METAB OLIC PANEL BUN/creatini ne ratio 15 (calc ) 6-22 normal Not Available [facility] [address] [place], [address], 09/04/2024 13:25:37 08/31/19 25 09/04/2024 COMPR EHENS JACQUELINE METAB OLIC PANEL sodium 138 mmol/ L 135-14 6 normal Not Available [facility] [address] [place], [address], 09/04/2024 13:25:37 08/31/19 25 09/04/2024 COMPR EHENS JACQUELINE METAB OLIC PANEL potassium 4.3 mmol/ L 3.5-5. 3 normal Not Available [facility] [address] [place], [address], 09/04/2024 13:25:37 08/31/19 25 09/04/2024 COMPR EHENS JACQUELINE METAB OLIC PANEL chloride 100 mmol/ L 98-110 normal Not Available [facility] [address] [place], [address], 09/04/2024 13:25:37 08/31/19 25 09/04/2024 COMPR EHENS JACQUELINE METAB OLIC PANEL carbon dioxide 26 mmol/ L 20-32 normal Not Available [facility] [place] [facility] [address] [facility] [place], [address], 09/04/2024 13:25:37 08/31/19 25 09/04/2024 COMPR EHENS JACQUELINE METAB OLIC PANEL calcium 8.9 mg/dL 8.6-10 .3 normal Not Available [facility] [address] [facility] [place], [address], 09/04/2024 13:25:37 08/31/19 25 09/04/2024 COMPR EHENS JACQUELINE METAB OLIC PANEL protein, total 6.8 g/dL 6.1-8. 1 normal Not Available [facility] [place] [facility] [address] [facility] [place], [address], 09/04/2024 13:25:37 08/31/19 25 09/04/2024 COMPR EHENS JACQUELINE METAB OLIC PANEL albumin 3.7 g/dL 3.6-5. 1 normal Not Available [facility] [address] [place], [address], 09/04/2024 13:25:37 08/31/19 25 09/04/2024 COMPR EHENS JACQUELINE METAB OLIC PANEL globulin 3.1 g/dL_ (calc ) 1.9-3. 7 normal Not Available [facility] [address] [facility] [place], [address], 09/04/2024 13:25:37 08/31/19 25 09/04/2024 COMPR EHENS JACQUELINE METAB OLIC PANEL albumin/glob ulin ratio 1.2 (calc ) 1.0-2. 5 normal Not Available [facility] [address] [place], [address], 09/04/2024 13:25:37 08/31/19 25 09/04/2024 COMPR EHENS JACQUELINE METAB OLIC PANEL bilirubin, total 0.5 mg/dL 0.2-1. 2 normal Not Available [facility] [address] [place], [address], 09/04/2024 13:25:37 08/31/19 25 09/04/2024 COMPR EHENS JACQUELINE METAB OLIC PANEL alkaline phosphatase 46 U/L 35-144 normal Not Available [facility] [employer] [facility] [address] [place], [address], 09/04/2024 13:25:37 08/31/19 25 09/04/2024 COMPR EHENS JACQUELINE METAB OLIC PANEL AST 21 U/L 10-35 normal Not Available [facility] [address] [place], [address], 09/04/2024 13:25:37 08/31/19 25 09/04/2024 COMPR EHENS JACQUELINE METAB OLIC PANEL ALT 11 U/L 9-46 normal Not Available [facility] [address] [place], [address], 09/04/2024 13:25:37 08/31/19 25 09/04/2024 TSH TSH 2.03 mIU/L 0.40-4 .50 normal Not Available [facility] [address] [place], [address], 09/04/2024 13:25:39 08/31/19 25 09/04/2024 LEVET IRACE [...] purpo ses only. ) This test was palomo liu and its josé miguel tical perfo rmanc e tawnya cteri stics have been deter mined by [facility]. It has not been clear ed or appro ryan by the FDA. This assay has been valid ated pursu ant to the CLIA regul ation s and is used for clini zully purpo ses. Not Available [facility] [place] [facility] [address] [place], [address], 09/04/2024 13:25:39 08/31/19 25 09/04/2024 VALPR OIC ACID valproic acid 116.9 mg/L 50.0-1 00.0 high Not Available [facility] [place] [facility] [address] [facility], [place], [address], 09/04/2024 13:25:40 10/25/19 25 10/24/2024 imagi ng/di agnos tic resul t No observ ation record ed. [facility] [address], [place], [place], [address], 10/24/2024 09:22:38 10/25/19 25 10/24/2024 imagi ng/di agnos tic resul t No observ ation record ed. [facility] [address], [place], [place], [address], 10/24/2024 09:30:20 10/25/1910/24/2024 rhyth m strip , EKG* No observ ation record ed. [address], [place], [place], [address], 10/24/2024 14:09:36 10/25/19 25 10/24/2024 US, echoc ardio gram No observ ation record ed. [address], [place], [place], [address], 10/24/2024 15:19:41 Result Notes None recorded. Problems Name Problem SNOMED Code Status Onset Date Resolution Date Notes Provider Name and Address Organization Details Recorded Time Gastroeso phageal reflux disease 349485253 Active Not Available [facility] 0 17:52:26 Osteoporo sis 50141118 Active Not Available [employer] 0 17:52:26 Hyperlipi demia 92955297 Active Not Available [employer] 0 17:52:26 Generaliz ed osteoarth ritis 673363550 Active Not Available [employer] 0 17:52:26 Disorder of urinary tract 17690088 Active Not Available [employer] 0 17:52:26 Acute bronchiti s 79551090 Completed 02/11/2019 Mini Freire MD [address], [address] [place] [address] , [place] [facility] 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 9 14:01:07 Multiple actinic keratoses 675300780 Active Not Available [employer] 0 17:52:26 Acute sinusitis 20264990 Completed 02/11/2019 Mini Freire MD [address], [address] [place] [address] , [facility] 9 14:00:49 Fatigue 42975465 Active Not Available [facility] 0 17:52:26 Abdominal pain 63908880 Active Not Available [facility] 0 17:52:26 Fracture of humerus 89890259 Active 2019 Mini Freire MD [address], [address] [place] [address] , [facility] 0 23:20:57 Closed fracture of right acetabulu m [id number] 526491 Active 2019 Mini Freire MD [address] [facility] 0 23:20:44 Problem Notes None recorded. 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 06/13/2020 08:30:49 11/27/19 19 repair of hip completed [facility] 12/22/2018 13:37:34 04/12/20 17 Colonoscopy completed Mini Freire MD [address] [facility] 05/16/2017 09:30:12 01/26/20 17 Nebulizer tx completed Mini Freire MD [address] [facility] 01/25/2017 10:57:41 03/02/20 16 Knee arthroscopy/surge ry completed Mini Freire MD [address] [facility] 12/24/2018 14:50:20 05/02/19 15 Cataract Surgery completed Mini Freire MD [address] [facility] 02/11/2019 14:05:52 04/12/20 13 Colonoscopy completed Mini Freire MD [address], [address], [facility] 02/11/2019 14:04:42 05/02/19 09 Cataract Surgery completed Mini Freire MD [address] [place] [address], [facility] 12/27/2014 10:59:54 Knee Surgery completed Mini Freire MD [address] [place] [address], [facility] 01/15/2016 10:49:41 Appendectomy completed Mini Freire MD [address] [place] [address], [facility] 01/15/2016 11:05:11 Tonsillectomy completed [facility] 06/15/2011 11:38:57 Other completed [facility] 06/15/2011 11:38:57 Imaging Results None recorded. Procedure Notes None recorded. Medical Equipment None Reported. Allergies Allergen ID Allergen Name Allergen Category Reaction Reaction Severity Criticality Documentation Date Start Date Code Code System Note Provider Name and Address Organization Details Recorded Time 01671 Augmentin medicatio n rash moderate high 03/10/20232022 17591 2 RxNorm Mini Freire MD [address], [id number], [facility] 14:53:39 Medications Name Sig Start Date [...] e 50 mcg/actua tion nasal spray,noemi pension Tarpley 1 spray every day by intranas al [...] completed Not Available Not Available Not Available Brittneejanianawaf n DM 10 mg-100 mg/5 mL oral [...] Not Available Not Available Not Available Fluzone (PF) 45 mcg (15 [...] Updated DateTime 4 165.1 cm 33.3 kg/m2 39828.4 7 g 73 /min 95 % 95 % 97 [degF] 128 mm[Hg] 76 mm[Hg] [facility] 4 11:34:56 Date Recorded Body height Body mass index (BMI) Body weight Heart rate Oxygen saturation Oxygen saturation in Arterial blood by Pulse oximetry Body temperature Systolic blood pressure Diastolic blood pressure Provider Name and Address Organization Details Last Updated DateTime 5 165.1 cm 33.9 kg/m2 69671.8 4 g 73 /min 97 % 97 % 97.2 [degF] 123 mm[Hg] 74 mm[Hg] [facility] 5 15:16:05 Date Recorded Body height [...] Updated DateTime 5 165.1 cm 34.6 kg/m2 23438.2 1 g 80 /min 94 % 94 % 97.5 [degF] 110 mm[Hg] 65 mm[Hg] [facility] 5 14:40:27 Date Recorded Body mass index (BMI) Body weight Provider Name and Address Organization Details Last Updated DateTime 02/13/2024 36.6 kg/m2 00054.32 g Mini Freire MD [address] [facility], [address], [place], [address], [facility] 02/13/2024 14:36:04 Date Recorded Body height Heart rate Oxygen saturation Oxygen saturation in Arterial blood by Pulse oximetry Body temperature Systolic blood pressure Diastolic blood pressure Provider Name and Address Organization Details Last Updated DateTime 4 165.1 cm 76 /min 96 % 96 % 97.2 [degF] 127 mm[Hg] 79 mm[Hg] [facility] 4 13:47:31 Social History Question Answer Notes LastModified by Organization Details LastModified Time Tobacco Smoking Status Former Smoker Not Available [facility] 02/26/2020 03:11:18 Do You Have An Advance Directive? Yes [id number] Information not available 02/26/2020 Auto Related Injury? No Information not available 06/15/2011 Is Blood Transfusion Acceptable In An Emergency? Yes [id number] Information not available 02/26/2020 What Is Your Level Of Caffeine Consumption? Moderate [id number] Information not available 02/26/2020 How Much Tobacco Do You Chew? None [id number] Information not available 02/26/2020 Diabetes No Information not available 06/15/2011 What Type Of Diet Are You Following? 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 No Information not available 06/15/2011 When Did You Quit Smoking? 16+yearssin celastcigar ette Information not available 06/13/2020 High Blood Pressure No Information not available 06/15/2011 High Cholesterol Yes Information not available 06/15/2011 Live Alone Or With Others? With Others Information not available 06/15/2011 Marital Status Informatio n not available 06/15/2011 What Was The Date Of Your Most Recent Tobacco Screening? 02/13/2024 Information not available 02/13/2024 How Many Children Do You Have? 3 [id number] Information not available 02/26/2020 What Is Your Relationship Status? Information not available 02/13/2024 Are You Passively Exposed To Smoke? No Information not available 06/15/2011 How Much Tobacco Do You Smoke? No Smoked About 10 Years And Quit In 1999 Information not available 02/08/2023 General Stress Level Low Information not available 06/15/2011 How Many Years Have You Smoked Tobacco? 10 [id number] Information not available 02/26/2020 Sex: Unknown Functional Status Question Answer Note LastModified by Organizat ion Details LastModified Time What is your level of alcohol consumption? None [id number] Information not available 02/26/2020 Are you currently employed? Yes [id number] Information not available 02/26/2020 Are you able to care for yourself? Yes [id number] Information not available 02/26/2020 What is your occupation? Other RICHARD Information not available 10/04/2024 What is your exercise level? Moderate senior exercise classes two days week [id number] Information not available 02/26/2020 Mental Status None recorded. Family History Relationship Description Onset Age of this Age Resolved Age Notes LastModified by Organization Details LastModified Time Father Diabetes mellitus colon cancer (previ ously record ed as Diabet es) [email or web address] Not available 09/01/2015 10:13:47 Medical History Condition [...] high-dose, trivalent, PF 7 completed Not Available [facility] 05/19/2019 02:12:13 Influenza, split virus, trivalent, preservative 1 completed Not Available [facility] 12/21/2019 17:52:26 zoster live 0 completed Not Available [facility] 12/21/2019 17:52:26 Influenza, split virus, trivalent, preservative 2 completed Not Available [facility] 12/21/2019 17:52:26 Influenza, split virus, trivalent, preservative 3 completed Not Available [facility] 12/21/2019 17:52:26 Influenza, high-dose, trivalent, PF 8 completed Not Available [facility] 05/19/2019 02:12:13 Influenza, high-dose, trivalent, PF 9 completed Not Available [facility] 05/19/2019 02:12:11 Influenza, high-dose, quadrivalent, PF 1 completed Mini Freire MD [address] [facility], [address], [place], [address], [facility] 01/04/2021 15:13:33 Influenza, high-dose, quadrivalent, PF 1 completed [facility] 01/08/2021 08:56:50 Pneumococcal conjugate PCV 13 5 completed Not Available [facility] 12/21/2019 17:52:26 Influenza, high-dose, quadrivalent, PF 2 completed Mini Freire MD [address] [facility], [address], [place], [address], [facility] 01/21/2022 13:18:40 Tdap 2 completed Not Available [facility] 05/19/2019 02:12:10 Influenza, high-dose, quadrivalent, PF 3 completed Not Available [facility] 01/27/2023 10:48:05 pneumococcal polysaccharide PPV23 9 completed Not Available [facility] 12/21/2019 17:52:26 Influenza, high-dose, trivalent, PF 6 completed Not Available [facility] 12/21/2019 17:52:26 pneumococcal polysaccharide PPV23 6 completed Not Available [facility] 12/21/2019 17:52:26 Influenza, high-dose, trivalent, PF 4 completed Not Available [facility] 02/06/2024 10:41:32 COVID-19, mRNA, LNP-S, PF, laverne-sucrose, 30 mcg/0.3 mL 4 completed Mini Freire MD [address] [address], [place], [address], [place] [facility] 02/14/2024 06:48:50 zoster, unspecified formulation 8 completed Not Available [facility] 12/21/2019 17:52:26 Hep A, adult 8 completed Not Available [facility] 12/21/2019 17:52:26 zoster, unspecified formulation 9 completed Not Available [facility] 12/21/2019 17:52:26 Hep A, adult 9 completed Not Available [facility] 12/21/2019 17:52:26 Influenza, high-dose, quadrivalent, PF 1 completed Mini Freire MD [address] [address], [place], [address], [facility] 01/04/2021 15:11:30 COVID-19, mRNA, LNP-S, PF, 30 mcg/0.3 mL dose 1 completed Mini Freire MD [address] [address], [place], [address], [facility] 01/18/2022 13:52:37 COVID-19, mRNA, LNP-S, PF, 30 mcg/0.3 mL dose 2 completed Mini Freire MD [address] [address], [place], [address], [facility] 01/18/2022 13:52:49 COVID-19, mRNA, LNP-S, PF, 30 mcg/0.3 mL dose 1 completed Mini Freire MD [address], [address] [place] [address], [place] [facility] 01/18/2022 13:53:07 COVID-19, mRNA, LNP-S, PF, 30 mcg/0.3 mL dose 1 completed Mini Freire MD [address], [address] [place] [address], [place] [facility] 01/18/2022 13:53:27 COVID-19, mRNA, LNP-S, PF, 30 mcg/0.3 mL dose 2 completed Mini Freire MD [address], [address] [place] [address], [place] [facility] 02/23/2022 15:40:55 Tdap 3 completed Mini Freire MD [address], [address] [place] [address], [place] [facility] 02/28/2023 12:13:45 Respiratory syncytial virus (RSV) vaccine, unspecified 3 completed Mini Freire MD [address], [address] [place] [address], [place] [facility] 02/28/2023 12:14:55 COVID-19, mRNA, LNP-S, bivalent, PF, 30 mcg/0.3 mL dose 3 completed Mini Freire MD [address], [address] [place] [address], [place] [facility] 06/24/2023 12:36:21 Past Encounters Encounter ID Performer Location Encounter Start Date Encounter Closed Date Diagnosis/Indication Diagnosis SNOMED-CT Code Diagnosis ICD10 Code Diagnosis Note [id number] Mini Freire MD [facility] [address] [address] 7 06/15/2011 11:19:57 06/15/2011 15:44:47 [id number] Mini Freire MD [address] [address] 12/11/2013 08:25:42 12/11/2013 11:26:04 Adult health examination 781672204 [id number] Mini Freire MD [address] [address] 12/27/2014 09:31:05 12/27/2014 17:01:05 Adult health examination 287913757 Epilepsy 19807248 Hyperlipidemia 09327560 Hand eczema 591217431 Multiple a ctinic keratoses 513232088 [id number] Mini Freire MD [address] [address] 09/01/2015 09:44:29 09/01/2015 13:40:36 Acute sinusitis 69441547 J01.90 Fatigue 80844182 R53.83 Abdominal pain 93896502 R10.9 [id number] Mini Freire MD [address] [address] 01/15/2016 09:27:03 01/21/2016 11:38:56 Adult health examination 109905296 Z00.01 Knee pain 22840065 M25.5 69 Seizure disorder 4661540 02 G40.909 Gastroesop hageal reflux disease 536171856 K21.9 Generalize d osteoarthritis 316309358 M15.9 Hyperlipidemia 48207579 E78.5 Neoplasm of skin 7915542 04 D49.2 Body mass index 30+ - obesity 991512875 Z68.30 Depression screening 171 535405 Z13.89 [id number] Mini Freire MD [facility] [address] [address] 08/12/2016 08:55:53 08/17/2016 09:43:03 History of bowel obstruction 4186575187 07862 Z87.19 Hyperlipidemia 64510988 E78.5 Chronic constipation 236 099779 K59.09 Seizure disorder 2278263 02 G40.909 [id number] Mini Freire MD [facility] [address] [address] 01/25/2017 09:24:25 01/27/2017 12:13:10 Adult health examination 421454516 Z00.01 Lower resp iratory tract infection 94698839 J22 Anemia 985367321 D64.9 Screening for malignant neoplasm of colon 492308809 Z12.11 Depression screening 171 355405 Z13.89 At low risk for fall 439 257809 Z91.81 Body mass index 25-29 - overweight 606177249 Z68.29 [id number] Mini Freire MD [facility] [address] [place], [place] [address] 01/28/2017 10:54:21 02/01/2017 10:01:29 Asthmatic bronchitis 689034222 J45.909 Active or passive immunization 994768801 Z23 Iron defic iency anemia 48136263 D50.9 [id number] Mini rFeire MD [facility] [place] [address] 7 04/21/2017 10:58:07 04/21/2017 13:38:13 Acute sinusitis 13005852 J01.90 [id number] Mini Freire MD [facility] [place] [address] 05/03/2017 11:06:18 05/03/2017 15:03:43 Asthmatic bronchitis 975762289 J45.909 Lower resp iratory tract infection 61826667 J22 [id number] Mini Freire MD [place] [address] 01/26/2018 13:22:18 01/29/2018 20:47:43 Adult health examination 660362233 Z00.01 Active or passive immunization 034869610 Z23 Seizure disorder 3702840 02 G40.909 he takes 2 phenobarb in am and 2 in PM 3 nights and 1 in PM 4 nights per week; we are decreasing dilantin to 2 in am only Depression screening 171 370060 Z13.89 Body mass index 30+ - obesity 583404033 Z68.31 Hyperlipidemia 04653124 E78.5 Gastro-eso phageal reflux disease with esophagitis 025923230 K21.0 [id number] Mini Freire MD [facility] [address] [address] 03/31/2018 10:29:57 04/04/2018 08:55:43 Acute sinusitis 27777945 J01.90 [id number] Mini Freire MD [facility] [address] [address] 08/18/2018 10:12:04 08/20/2018 21:17:22 Acute sinusitis 15232706 J01.90 Cough 66165718 R05 [id number] Mini Freire MD [facility] [address] [place] [address] 08/29/2018 10:04:31 09/01/2018 08:14:40 Epilepsy 64678764 G40.909 Hyperlipidemia 08663143 E78.5 Gastroesop hageal reflux disease 008394423 K21.9 Body mass index 30+ - obesity 274005762 Z68.31 [id number] Mini Freire MD [facility] [address] [address] 12/22/2018 13:26:35 12/25/2018 10:20:58 Osteoporosis 54496690 M81.0 Fracture of femur 057064 00 M84.750D Seizure disorder 7897425 02 G40.909 Bryan's esophagus 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 74511 K22.70 Gastroesop hageal reflux disease 993912290 K21.9 Body mass index 30+ - obesity 155469657 Z68.30 [id number] Mini Freire MD [address] [address] 02/01/2019 10:01:48 02/05/2019 08:32:57 Adult health examination 653351574 Z00.01 Active or passive immunization 693718093 Z23 Seizure disorder 4474907 02 G40.909 Depression screening 171 450999 Z13.89 Body mass index 30+ - obesity 384963512 Z68.30 Hyperlipidemia 11296325 E78.5 Gastro-eso phageal reflux disease with esophagitis 570705910 K21.0 Osteoporosis 45471663 M8 1.0 [id number] Mini Freire MD [facility] [address] [address] 04/06/2019 14:12:37 04/06/2019 16:03:30 Lower respiratory tract infection 59214197 J22 [id number] Mini Freire MD [place] [address] 7 01/03/2020 13:02:07 01/28/2020 07:48:51 Fracture of humerus 02661319 S42.301D Closed fra cture of right acetabulum 6788834699 5422431 S32.401D Epilepsy 09299805 G40.90 9 Osteoporosis 89511754 M8 1.0 Gastroesop hageal reflux disease 615749847 K21.9 Hyperlipidemia 63187037 E78.5 Benign pro static hyperplasia 843434941 N40.1 Anemia 087117353 D64.9 Constipation 68366635 K5 9.00 [id number] Mini Freire MD [place] [address] 7 02/13/2020 17:00:23 2020 08:05:38 Fracture of humerus 06518368 S42.301D Closed fra cture of right acetabulum 0048703483 3165470 S32.401D Epilepsy 79543407 G40.90 9 Osteoporosis 40797607 M8 1.0 Gastroesop hageal reflux disease 828905214 K21.9 Hyperlipidemia 95851030 E78.5 Benign pro static hyperplasia 696967705 N40.1 Constipation 00680969 K5 9.00 [id number] Mini Freire MD [place] [address] 7 03/06/2020 16:59:23 03/07/2020 08:39:56 Fracture of humerus 81719980 S42.301D Closed fra cture of right acetabulum 7853790093 1755518 S32.401D Epilepsy 68827981 G40.90 9 Osteoporosis 37726742 M8 1.0 Gastroesop hageal reflux disease 927950001 K21.9 Hyperlipidemia 66132245 E78.5 Benign pro static hyperplasia 539222590 N40.1 Constipation 41316317 K5 9.00 Urinary tr act infectious disease 17849593 N39.0 [id number] Mini Freire MD [facility] [place] [address] 7 06/12/2020 00:17:29 06/15/2020 17:17:02 Fracture of humerus 88473216 S42.301D Closed fra cture of right acetabulum 0723113942 7657032 S32.401D Epilepsy 84393031 G40.90 9 Osteoporosis 56135921 M8 1.0 Gastroesop hageal reflux disease 076520447 K21.9 Hyperlipidemia 08649711 E78.5 Benign pro static hyperplasia 984169053 N40.1 Constipation 98840461 K5 9.00 History of reverse prosthetic total arthroplasty of right shoulder 6208284376 7375035 Z96.611 Transition from acute care to self-care 8047481174 13987 Z76.89 [id number] Mini Freire MD [facility] [address] [address] 01/01/2021 14:17:18 01/04/2021 13:53:09 Administration of influenza vaccine 45333691 Z23 History of reverse prosthetic total arthroplasty of right shoulder 2814038305 1989208 Z96.611 Closed fra cture of right acetabulum 1851901222 8054107 S32.401D Epilepsy 39590358 G40.90 9 Osteoporosis 40521327 M8 1.0 Gastroesop hageal reflux disease 532909713 K21.9 Hyperlipidemia 46360772 E78.5 Benign pro static hyperplasia 889862845 N40.1 Adult heal th examination 246882704 Z00.01 Body mass index 30+ - obesity 385150310 Z68.33 History of fracture of shoulder 9587207087 56236 Z87.81 History of osteoporotic fracture 7511886535 16832 Z87.310 Disorder of bone 8473536 3 M89.9 [id number] Mini Freire MD [facility] [address] [facility], [address] [address] 11/09/2021 16:34:46 11/13/2021 08:00:57 History of reverse prosthetic total arthroplasty of right shoulder 2212144335 8883441 Z96.611 Closed fra cture of right acetabulum 5654226639 3549332 S32.401D Epilepsy 87918908 G40.90 9 Osteoporosis 47439622 M8 1.0 Gastroesop hageal reflux disease 731058591 K21.9 Hyperlipidemia 99917265 E78.5 Benign pro static hyperplasia 660077903 N40.1 History of fracture of shoulder 9663210769 06226 Z87.81 History of osteoporotic fracture 1424460606 56529 Z87.310 Disorder of bone 1539392 3 M89.9 Muscle weakness 62019400 M62.81 [id number] Mini Freire MD [facility] [address] [place] [address] 01/18/2022 13:24:04 01/22/2022 08:23:00 Administration of influenza vaccine 41771210 Z23 Adult heal th examination 129741199 Z00.01 History of reverse prosthetic total arthroplasty of right shoulder 6871599056 5792740 Z96.611 Closed fra cture of right acetabulum 1945329099 4227639 S32.401D Epilepsy 23197266 G40.90 9 Osteoporosis 84256115 M8 1.0 Gastroesop hageal reflux disease 583454242 K21.9 Hyperlipidemia 21238719 E78.5 Benign pro static hyperplasia 395178283 N40.1 Body mass index 30+ - obesity 136289813 Z68.37 History of fracture of shoulder 5657746368 39093 Z87.81 History of osteoporotic fracture 2948574875 65594 Z87.310 Disorder of bone 0260559 3 M89.9 Drug-induc ed hyponatremia 239079972 T50.905A [id number] Mini Freire MD [facility] [address] [address] 02/23/2022 14:33:47 02/25/2022 08:40:04 Seasonal allergic rhinitis 464036262 J30.2 Acute lowe r respiratory tract infection 700879333 J22 he has some guaifenesi n 1200 bid to use [id number] Mini Freire MD [facility] [address] [address] 03/30/2022 15:25:25 04/02/2022 09:07:31 Acute lower respiratory tract infection 039093714 J22 he has some guaifenesi n 1200 bid to use Hyponatremia 35997274 E8 7.1 Anemia 207874794 D64.9 Venous sta sis edema of bilateral lower limbs 8680244335 8722595 I87.2 Wheezing 96527987 R06.2 Cough 88269594 R05.9 [id number] Mini Freire MD [facility] [address] [place] [address] 02/08/2023 13:34:10 02/10/2023 08:55:16 Adult health examination 851775090 Z00.01 Closed fra cture of right acetabulum 2576190097 5859318 S32.401D Epilepsy 45134571 G40.90 9 Osteoporosis 92844687 M8 1.0 Gastroesop hageal reflux disease 996146207 K21.9 Hyperlipidemia 34508742 E78.5 Benign pro static hyperplasia 122187406 N40.1 Body mass index 30+ - obesity 553674865 Z68.37 History of fracture of shoulder 9027546623 41660 Z87.81 History of osteoporotic fracture 0194992559 58940 Z87.310 Disorder of bone 3340662 3 M89.9 History of reverse prosthetic total arthroplasty of right shoulder 9626947292 4487529 Z96.611 Drug-induc ed hyponatremia 930313759 T50.905A Impacted c erumen of bilateral ears 8537125717 259588 H61.23 [id number] Mini Freire MD [facility] [address] [place] [address] 02/28/2023 11:43:25 03/01/2023 08:33:48 Acute lower respiratory tract infection 915414498 J22 he has some guaifenesi n 1200 bid to use [id number] Mini Freire MD [facility] [address] [place] [address] 03/10/2023 14:07:09 03/14/2023 08:42:14 Allergic reaction to drug 557824932 T50.905A Candidiasis of skin 4988 3006 B37.2 Seizure disorder 2380238 02 G40.909 [id number] Mini Freire MD [facility] [address] [address] 06/24/2023 11:09:02 06/27/2023 08:28:33 Recurrent falls 431933580 R29.6 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 7086539212 5106 L89.154 Abnormal g ait due to muscle weakness 690934207 M62.81 Seizure disorder 2588359 02 G40.909 Osteoporosis 88111016 M8 1.0 Body mass index 30+ - obesity 598707867 Z68.33 [id number] Mini Freire MD [facility] [address] [place] [address] 07/29/2023 14:17:59 08/01/2023 08:35:42 Acute lower respiratory tract infection 590788023 J22 he has some guaifenesi n 1200 bid to use Hypothyroidism 69772351 E03.9 Pressure i njury of sacral region of back 451612733 L89.159 Hypoalbuminemia 37207805 4 E88.09 [id number] Mini Freire MD [facility] [address] [place] [address] 02/13/2024 13:46:23 02/14/2024 09:53:10 Active or passive immunization 997707813 Z23 Hypothyroidism 68926791 E03.9 Adult heal th examination 347605038 Z00.01 Contusion of right foot 2554191247 6837887 S90.31XA Pressure i njury of sacral region of back 752770923 L89.159 Medication review done by doctor 731507234 Z76.89 Closed fra cture of right acetabulum 2888623454 9302066 S32.401D Epilepsy 68759112 G40.90 9 Osteoporosis 26383968 M8 1.0 Gastroesop hageal reflux disease 149645688 K21.9 Hyperlipidemia 23633752 E78.5 Benign pro static hyperplasia 943536941 N40.1 Body mass index 30+ - obesity 087116836 Z68.37 History of fracture of shoulder 8676313850 45465 Z87.81 History of osteoporotic fracture 6083270111 75362 Z87.310 Disorder of bone 6218994 3 M89.9 History of reverse prosthetic total arthroplasty of right shoulder 3941420876 2265219 Z96.611 Drug-induc ed hyponatremia 663569388 T50.905A Bilateral hearing loss 23152637 H91.93 Medication serum levels outside of reference range 6930958756 29875 R78.9 [id number] Mini Freire MD [facility] 2017 [facility], [facility] [address] [place] [address] 07/09/2024 15:15:13 07/10/2024 11:36:53 Post-discharge follow-up 288491724 Z09 Seizure disorder 2947955 02 G40.909 Syndrome o f inappropriate vasopressin secretion 69582129 E22.2 Edema of l ower extremity 426061070 R60.0 Atrial par oxysmal tachycardia 204594818 I47.19 Low blood pressure 07161 003 I95.9 Body mass index 30+ - obesity 462408745 Z68.33 [id number] Mini Freire MD [facility] [address] [address] 08/30/2024 14:38:18 09/03/2024 08:58:14 Seizure disorder 558837892 G40.909 Essential hypertension 74070251 I10 Acquired hypothyroidism 546433900 E03.9 Belinda an gular cheilitis 639320868 B37.83 Candidal intertrigo 2661 16863 B37.2 Angular cheilitis 303633 005 K13.0 Pressure i njury of sacral region of back stage I 3362840081 5101 L89.151 Allergic rhinitis 524904 04 J30.9 Health Concerns Section Related Observation LastModified by Organization Detai ls LastModified Time None Recorded Concern Status LastModified by Organization Details LastModified Time None Recorded Advance Directives Directive Y: Payers Insurance Date Sequence Insurance Name Policy Number Policy Padilla Covered Member ID Padilla Member ID Guarantor Name 12/19/2018 1 [employer] (MEDICARE REPLACEMENT PFFS) Christian Fuentes [id number] Christian Fuentes 12/19/2018 1 [employer] (MEDICARE REPLACEMENT/AD VANTAGE - PFFS) Christian Fuentes [id number] Christian Fuentes 10/03/2024 1 [employer] - MEDICARE ADVANTAGE (MEDICARE REPLACEMENT PPO) [id number] Christian Fuentes [id number] Christian Fuentes Notes Date Note Type Note [...] in the chair. Mini Freire MD [address], [address], [facility] 06/25/2023 09:48:28 [...] called [facility] B[employer]her Mini Freire MD [address], [address], [facility] 07/30/2023 13:30:30 02/13/2024 text/html has had [...] Kevin's butt paste. Mini Freire MD [address] [facility], [place] [address], [place], [address], [facility] 02/14/2024 07:34:47 07/09/2024 text/html got home from [facility] yesterday afternoon after being there since June 01. He got covid while in there and 2 falls in the nursing room. He went to [facility] ER on 05/26 for chest pain and [...] it taste better. Mini Freire MD [address] [facility], [address], [place], [address], [facility] 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 Mini Freire MD [address] [facility], [address], [place], [address], [facility] 08/31/2024 13:50:19
--- OUTSIDE RECORDS SUMMARY | 2024-10-25 10:10 | XMS_ITS | Encounter Summary ---
Author Organization [employer] iatives Address [address] [place] [address] Care Team Providers Care Behavioral Health Assistant Name Role Phone Unavailable Primary Care Provider Unavailabl e Encounter Details Date Type Department Care Team (Late st Contact Info) Description 11/26/2018 Transcribed Document [facility] Family Medicine [address] [place] [address] ProviderDarwin MD [address] [place] [address] Social History Tobacco Use Types [...] Cris Goodman RN - 11/26/2018 23:29 EDT documented in this encounter Plan of Treatment Not on file documented as of this encounter Visit Diagnoses Not on filedocumented in this encounter
--- OUTSIDE RECORDS SUMMARY | 2024-10-25 10:10 | XMS_ITS | Encounter Summary ---
Author Organization [employer] iatives Address [address] [place] [address] Care Team Providers Care Furnace Erector Name Role Phone Unavailable Primary Care Provider Unavailabl e Encounter Details Date Type Department Care Team (Late st Contact Info) Description 11/29/2018 Transcribed Document [facility] [place] Family Medicine [address] [place] [address] ProviderDarwin MD [address] [place] [address] Social History Tobacco Use Types [...] Historical ProviderMD - 11/29/2018 2:00 AM CDT Certified Registered Dental Assistant Details Entered On: 11/29/2018 5:41 EDT Performed [...]
--- OUTSIDE RECORDS SUMMARY | 2024-10-25 10:11 | XMS_ITS | Encounter Summary ---
Author Organization [employer] iatives Address [address] [place] [address] Care Team Providers Care Plasterer Helper Name Role Phone Unavailable Primary Care Provider Unavailabl e Encounter Details Date Type Department Care Team (Late st Contact Info) Description 11/28/2018 Transcribed Document [facility] [place] Family Medicine [address] [place] [address] ProviderDarwin MD [address] [place] [address] Social History Tobacco Use Types [...] 12.5 % LOW Lymph # 1.68 K/uL [place] % 8.1 % [place] # 1.08 K/uL [place] Eos % 0.4 [...]
--- OUTSIDE RECORDS SUMMARY | 2024-10-25 10:11 | XMS_ITS | Encounter Summary ---
Author Organization [employer] iatives Address [address] [place] [address] Care Team Providers Care Duplicating Machine Operator Name Role Phone Unavailable Primary Care Provider Unavailabl e Encounter Details Date Type Department Care Team (Late st Contact Info) Description 11/27/2018 Transcribed Document [facility] [place] [place] [address] [place] [address] ProviderDarwin MD [address] [place] [address] Social History Tobacco Use Types [...] Policy Numbers : Insurance 1 Health Plan: [employer] Policy Number: [id number] Authorization Number: [id number] Insurance Primary Name : [facility] Medicare Authorization Status-Primary : Awaiting callback Reference Number-Primary : [id number] Authorized Service Begin Date-Primary : 11/26/2018 EDT Historical Authorization Comments-Primary : Comment 1: Uploaded clinicals to [facility] Medicare via [employer]. (JONY PALOMO RN-Utilization Review 11/27/2018 09:20) VANDANA CRUZ RN-Utilization Review - 11/27/2018 9:34 EDT Electronically signed by Marybeth [facility] Conversion Human Resources District Manager Cerner at 08/17/2022 10:00 AM CDT documented in this encounter Plan of Treatment Not on file documented as of this encounter Visit Diagnoses Not on filedocumented in this encounter
--- OUTSIDE RECORDS SUMMARY | 2024-10-25 10:11 | XMS_ITS | Encounter Summary ---
Author Organization [id number] iatives Address [address] [place] [address] Care Team Providers Care Order Processing Manager Name Role Phone Unavailable Primary Care Provider Unavailabl e Encounter Details Date Type Department Care Team (Late st Contact Info) Description 11/27/2018 Transcribed Document [facility] [place] [address] [place] [address] ProviderDarwin MD [address] [place] [address] Social History Tobacco Use Types [...] Cris Goodman RN - 11/27/2018 6:42 EDT Electronically signed by Vicente Rueda Conversion Paper Bags Sewing Machine Operator Cerner at 08/17/2022 9:58 AM CDT documented in this encounter Plan of Treatment Not on file documented as of this encounter Visit Diagnoses Not on filedocumented in this encounter
--- OUTSIDE RECORDS SUMMARY | 2024-10-25 10:11 | XMS_ITS | Encounter Summary ---
Author Organization [employer] iatives Address [address] [place] [address] Care Team Providers Care Dress Operator Name Role Phone Unavailable Primary Care Provider Unavailabl e Encounter Details Date Type Department Care Team (Late st Contact Info) Description 11/27/2018 Transcribed Document [facility] [place] Family Medicine [address] [place] [address] ProviderDarwin MD [address] [place] [address] Social History Tobacco Use Types [...] Policy Numbers : Insurance 1 Health Plan: [employer] Policy Number: [id number] Authorization Number: Insurance Primary Name : [facility] Medicare Authorization Status-Primary : Awaiting callback Authorized Service Begin Date-Primary : 11/26/2018 EDT Authorization Comments-Primary : Uploaded clinicals to [facility] Medicare via [employer]. Historical Authorization Comments-Primary : No Authorization Comments Found JONY PALOMO RN-Utilization Review - 11/27/2018 9:20 EDT documented in this encounter Plan of Treatment Not on file documented as of this encounter Visit Diagnoses Not on filedocumented in this encounter
--- OUTSIDE RECORDS SUMMARY | 2024-10-25 10:11 | XMS_ITS | Encounter Summary ---
Author Organization [employer] iatives Address [address] [place] [address] Care Team Providers Care Relay Telegrapher Name Role Phone Unavailable Primary Care Provider Unavailabl e Encounter Details Date Type Department Care Team (Late st Contact Info) Description 11/27/2018 Transcribed Document [facility] [place] [address] [place] [address] ProviderDarwin MD [address] [place] [address] Social History Tobacco Use Types [...] 12.5 % LOW Lymph # 1.68 K/uL [place] % 8.1 % [place] # 1.08 K/uL [place] Eos % 0.4 [...]
--- OUTSIDE RECORDS SUMMARY | 2024-10-25 10:11 | XMS_ITS | Encounter Summary ---
Author Organization [employer] iatives Address [address] [place] [address] Care Team Providers Care Tree And Shrub Worker Name Role Phone Unavailable Primary Care Provider Unavailabl e Encounter Details Date Type Department Care Team (Late st Contact Info) Description 11/27/2018 Transcribed Document [facility] [place] [facility] [place] [address] ProviderDarwin MD [address] [place] [address] Social History Tobacco Use Types [...] On: 11/27/2018 15:57 EDT by MENDEZ DRAPER, STONE HAND General Information, PT Visit Type, PT : [...] met and within reach, Other: spouse, SCUDS, LEAD ORACLE DEVELOPER/PCT Informed Comment : RN simran'abram pt for [...] MENDEZ DRAPER PTA - 11/27/2018 15:59 EDT Jail Goals Other PT LTG Grid Goal #1 [...] MENDEZ Ballard, BRENDAN - 11/27/2018 15:59 EDT ABRON MENDEZ Ballard, BRENDAN - 11/27/2018 15:59 EDT [...] MENDEZ DRAPER PTA - 11/27/2018 15:59 EDT documented in this encounter Plan of Treatment Not on file documented as of this encounter Visit Diagnoses Not on filedocumented in this encounter
--- OUTSIDE RECORDS SUMMARY | 2024-10-25 10:11 | XMS_ITS | Encounter Summary ---
Author Organization Network [employer] iatives Address [address] [place] [address] Care Team Providers Care Technical Services Rep Name Role Phone Unavailable Primary Care Provider Unavailabl e Encounter Details Date Type Department Care Team (Late st Contact Info) Description 11/27/[address] [facility] [place] Family Medicine [address] [place] [address] ProviderDarwin MD [address] [place] [address] Social History Tobacco Use Types [...] Historical ProviderMD - 11/27/2018 9:20 AM CDT software specialist Form Entered On: 11/27/2018 9:20 EDT Performed [...]
--- OUTSIDE RECORDS SUMMARY | 2024-10-25 10:11 | XMS_ITS | Encounter Summary ---
Author Organization [employer] Address [address] [place] [address] Care Team Providers Care Fur Floor Worker Name Role Phone Unavailable Primary Care Provider Unavailabl e Encounter Details Date Type Department Care Team (Late st Contact Info) Description 11/28/2018 Transcribed Document [facility] [place] Family Medicine [facility] [place] [address] ProviderDarwin MD [address] [place] [address] Social History Tobacco Use Types [...] On: 11/28/2018 14:48 EDT by CHINMAY PASCUAL, Rn-Drapery InstallerMail Messenger Contractor Progress Note Discharge Arrangements : Patient Post-Acute [...] Attend Multidisciplinary Rounds? : No CHINMAY PASCUAL, Rn-Drapery Installer - 11/28/2018 14:48 EDT Narrative Progress Note Narrative Progress Note : Precert pending for [facility] CHINMAY PASCUAL Rn-Drapery Installer - 11/28/2018 14:48 EDT documented in this encounter Plan of Treatment Not on file documented as of this encounter Visit Diagnoses Not on filedocumented in this encounter
--- OUTSIDE RECORDS SUMMARY | 2024-10-25 10:11 | XMS_ITS | Encounter Summary ---
Author Organization [employer] In iatives Address [address] [place] [address] Care Team Providers Care Senior Engineering Manager Name Role Phone Unavailable Primary Care Provider Unavailabl e Encounter Details Date Type Department Care Team (Late st Contact Info) Description 11/27/2018 Transcribed Document [facility] [place] Family Medicine [address] [place] [address] ProviderDarwin MD [address] [place], [place] [id number] Social History Tobacco Use Types Packs/Day Years [...] Policy Numbers : Insurance 1 Health Plan: [employer] Policy Number: [id number] Authorization Number: Insurance Primary Name : [facility] Medicare Authorization Status-Primary : Awaiting callback Authorized Service Begin Date-Primary : 11/26/2018 EDT Historical Authorization Comments-Primary : No Authorization Comments Found JONY PALOMO RN-Utilization Review - 11/27/2018 8:51 EDT documented in this encounter Plan of Treatment Not on file documented as of this encounter Visit Diagnoses Not on filedocumented in this encounter
--- OUTSIDE RECORDS SUMMARY | 2024-10-25 10:11 | XMS_ITS | Encounter Summary ---
Author Organization [employer] iatives Address [address] [place] [address] Care Team Providers Care Audit Clerk Name Role Phone Unavailable Primary Care Provider Unavailabl e Encounter Details Date Type Department Care Team (Late st Contact Info) Description 11/27/2018 Transcribed Document [facility] [place] Medicine [address] [place] [address] ProviderDarwin MD [address] [place] [address] Social History Tobacco Use Types [...] 11:06 EDT Treatment Time : 12 Minute(s) FLORES COTTRELL OTR/L - 11/28/2018 11:38 EDT Self [...] FLORES COTTRELL OTR/L - 11/28/2018 11:38 EDT Half-Way Goals, OT Other LTG Grid Goal #1 [...] FLORES COTTRELL OTR/Delilah - 11/28/2018 11:38 EDT documented in this encounter Plan of Treatment Not on file documented as of this encounter Visit Diagnoses Not on filedocumented in this encounter
--- OUTSIDE RECORDS SUMMARY | 2024-10-25 10:11 | XMS_ITS | Encounter Summary ---
Author Organization [employer]shot iatives Address [address] [place] [address] Care Team Providers Care Inspector Poising Name Role Phone Unavailable Primary Care Provider Unavailabl e Encounter Details Date Type Department Care Team (Late st Contact Info) Description 11/28/2018 Transcribed Document [facility] [place] [address] [place] [address] ProviderDarwin MD [address] [place] [address] Social History Tobacco Use Types [...] Policy Numbers : Insurance 1 Health Plan: [employer] Policy Number: [id number] Authorization Number: [id number] Insurance Primary Name : [facility] Medicare Authorization Status-Primary : Admit approved Reference Number-Primary : [id number] Number of Days Authorized-Primary : 2 Authorized Service Begin Date-Primary : 11/26/2018 EDT Authorized Service End Date-Primary : 11/27/2018 EDT Authorization Comments-Primary : Uploaded clinicals to [facility] Medicare via [employer] for continuing stay. Historical Authorization Comments-Primary : Comment 1: [facility] approved per fax back -- nrd 11/28 (VANDANA CRUZ RN-Utilization Review 11/27/2018 16:05) Comment 2: Uploaded clinicals to [facility] Medicare via [employer]. (JONY PALOMO RN-Utilization Review 11/27/2018 09:20) JONY PALOMO RN-Utilization Review - 11/28/2018 13:33 EDT documented in this encounter Plan of Treatment Not on file documented as of this encounter Visit Diagnoses Not on filedocumented in this encounter
--- OUTSIDE RECORDS SUMMARY | 2024-10-25 10:11 | XMS_ITS | Encounter Summary ---
Author Organization [employer] iatives Address [address] [place] [address] Care Team Providers Care Drop Hammer Pile Driver Operator Name Role Phone Unavailable Primary Care Provider Unavailabl e Encounter Details Date Type Department Care Team (Late st Contact Info) Description 11/26/2018 Transcribed Document [facility] [place] [facility] [place] [address] ProviderDarwin MD [address] [place] [address] Social History Tobacco Use Types [...] extremity so he decided to come to [facility] ED where x-ray revealed nondisplaced left hip fracture. Patient denies any history of fall or bumping to a hard object but there is a mentioned above, he is On Dilantin for over [address] Juárez, from [facility], was notified, and patient was [...] DM, HTN and cancer Procedure history: Appendectomy ([id number]). knee arthroscopy bilateral. left hand. bilateral cataract [...] groin. Musculoskeletal: Left hip pain. Integumentary: Warm, [place], Intact, No pallor, No rash, WOUND STABLE. [...] Color Yellow Urine Appearance Clear Urine Specific [place] 1.008 Urine pH Dipstick 7.0 Urine Leukocyte Esterase Negative Urine Nitrite Negative Urine Protein Dipstick Negative Urine Glucose Dipstick Negative Urine Ketones Dipstick Negative Urine Urobilinogen Dipstick 0.2 EU/dL Urine Bilirubin Dipstick Negative mg/dL Urine Blood Dipstick Negative Ur RBC None Seen Ur WBC None Seen Ur Bacteria Trace Ur Epithelial Cells 0-2 /HPF . Radiology Results (Last 48 hours) [id number] -- 11/26/2018 12:26 CT Hip LT WO [...] then you may give Tylenol 650 mg PO/GA x 1. If no response in 2 [...] prophylaxis. Electronically signed by Vicente Rueda Conversion Conference Services Coordinator Cerner at 08/17/2022 9:43 AM CDT documented in this encounter Plan of Treatment Not on file documented as of this encounter Visit Diagnoses Not on filedocumented in this encounter
--- OUTSIDE RECORDS SUMMARY | 2024-10-25 10:11 | XMS_ITS | Encounter Summary ---
Author Organization [employer] iatives Address [address] [place] [address] Care Team Providers Care Technical Document Writer Name Role Phone Unavailable Primary Care Provider Unavailabl e Encounter Details Date Type Department Care Team (Late st Contact Info) Description 11/27/2018 Transcribed Document [facility] [place] [address] [place] [address] ProviderDarwin MD [address] [place] [address] Social History Tobacco Use Types [...]
--- OUTSIDE RECORDS SUMMARY | 2024-10-25 10:11 | XMS_ITS | Encounter Summary ---
Author Organization [employer] iatives Address [address] [place] [address] Care Team Providers Care Crusher Feeder Name Role Phone Unavailable Primary Care Provider Unavailabl e Encounter Details Date Type Department Care Team (Late st Contact Info) Description 11/28/2018 Transcribed Document [facility] [place] Family [place] [address] ProviderDarwin MD [address] [place] [address] Social History Tobacco Use Types [...] weeks post D/C Electronically signed by Marybeth [facility] Conversion Weight Checker Ace at 08/17/2022 9:55 AM CDT documented in this encounter Plan of Treatment Not on file documented as of this encounter Visit Diagnoses Not on filedocumented in this encounter
--- OUTSIDE RECORDS SUMMARY | 2024-10-25 10:11 | XMS_ITS | Encounter Summary ---
Author Organization [employer] iatives Address [address] [place] [address] Care Team Providers Care Film Mounter Name Role Phone Unavailable Primary Care Provider Unavailabl e Encounter Details Date Type Department Care Team (Late st Contact Info) Description 11/27/2018 Transcribed Document [facility] [place] Family Medicine [address] [place] [address] ProviderDarwin MD [address] [place] [address] Social History Tobacco Use Types [...] Policy Numbers : Insurance 1 Health Plan: [employer] Policy Number: [id number] Authorization Number: [id number] Insurance Primary Name : [facility] Medicare Authorization Status-Primary : Admit approved Reference Number-Primary : [id number] Number of Days Authorized-Primary : 2 Authorized Service Begin Date-Primary : 11/26/2018 EDT Authorized Service End Date-Primary : 11/27/2018 EDT Authorization Comments-Primary : [facility] approved per fax back -- nrd 11/28 Historical Authorization Comments-Primary : Comment 1: Uploaded clinicals to [facility] Medicare via [employer]. (DEWEY, JONY, RN-Utilization Review 11/27/2018 09:20) VANDANA CRUZ RN-Utilization Review - 11/27/2018 16:05 EDT documented in this encounter Plan of Treatment Not on file documented as of this encounter Visit Diagnoses Not on filedocumented in this encounter
--- OUTSIDE RECORDS SUMMARY | 2024-10-25 10:11 | XMS_ITS | Encounter Summary ---
Author Organization [employer] iatives Address [address] [place] [address] Care Team Providers Care Software Test Manager Name Role Phone Unavailable Primary Care Provider Unavailabl e Encounter Details Date Type Department Care Team (Late st Contact Info) Description 11/27/2018 Transcribed Document [facility] [place] [facility] [place] [facility] [place] [address] ProviderDarwin MD [address] [place] [address] Social History Tobacco Use Types [...] weeks after d/c Electronically signed by Marybeth [facility] Conversion Mines Inspector Ace at 08/17/2022 10:06 AM CDT documented in this encounter Plan of Treatment Not on file documented as of this encounter Visit Diagnoses Not on filedocumented in this encounter
--- OUTSIDE RECORDS SUMMARY | 2024-10-25 10:11 | XMS_ITS | Encounter Summary ---
Author Organization [employer] iatives Address [address] [place] [address] Care Team Providers Care House Carpenter Name Role Phone Unavailable Primary Care Provider Unavailabl e Encounter Details Date Type Department Care Team (Late st Contact Info) Description 11/28/2018 Transcribed Document [facility] [place] [facility] [place] [address] [place] [address] ProviderDarwin MD [address] [place] [address] Social History Tobacco Use Types [...]
--- OUTSIDE RECORDS SUMMARY | 2024-10-25 10:11 | XMS_ITS | Encounter Summary ---
Author Organization [employer] iatives Address [address] [place] [address] Care Team Providers Care Elementary School Music Teacher Name Role Phone Unavailable Primary Care Provider Unavailabl e Encounter Details Date Type Department Care Team (Late st Contact Info) Description 11/28/2018 Transcribed Document [facility] [place] [address] [place] [address] ProviderDarwin MD [address] [place] [address] Social History Tobacco Use Types [...] Historical ProviderMD - 11/28/2018 2:00 AM CDT Teamcenter Solution Architect Details Entered On: 11/28/2018 0:42 EDT Performed [...]
--- OUTSIDE RECORDS SUMMARY | 2024-10-25 10:11 | XMS_ITS | Encounter Summary ---
Author Organization [employer] iatives Address [address] [place] [address] Care Team Providers Care Linux Devops Engineer Name Role Phone Unavailable Primary Care Provider Unavailabl e Encounter Details Date Type Department Care Team (Late st Contact Info) Description 11/27/[address] [facility] [place] Family Medicine [address] [place] [address] ProviderDarwin MD [address] [place] [address] Social History Tobacco Use Types [...]
--- OUTSIDE RECORDS SUMMARY | 2024-10-25 10:11 | XMS_ITS | Encounter Summary ---
Author Organization [employer] iatives Address [address] [place] [address] Care Team Providers Care Forging Press Operator Name Role Phone Unavailable Primary Care Provider Unavailabl e Encounter Details Date Type Department Care Team (Late st Contact Info) Description 11/28/2018 Transcribed Document [facility] [place] Family Medicine [address] [place] [address] ProviderDarwin MD [address] [place] [address] Social History Tobacco Use [...] Spiritual Care Spiritual Care Referred by : Police Lieutenant Patrol initiated Reason for Visit : Initial Ministry Provided to : Patient, Family/Significant other Intervention/Comment/Summary Points : 3-day visit to patient, his waas persent with him. 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 He and his are looking forward to his next step in recovery and are hopeful that he will go to inpatient physical rehab soon. They are well-supported by family and rastafarian; prayed with them for patient's continued recovery. Spiritual/Emotional Acuity : Low Spiritual Framework : Well integrated, provides significant strength/resource Active in a [employer] Group : Yes Mandaen Preference : [employer] YOHANA DEL TORO, Police Lieutenant Patrol-Non Cert - 11/28/2018 22:41 EDT Electronically signed by Marybeth [facility] Conversion Network Control Technician Cerner at 08/17/2022 9:52 AM CDT documented in this encounter Plan of Treatment Not on file documented as of this encounter Visit Diagnoses Not on filedocumented in this encounter
--- NOTE | 2024-10-25 10:33 | HMH.PTEV ---
Physical Therapy Evaluation Rehab PT IP Evaluation Start: 10/24/24 15:43 Freq: ONCE Status: Active Protocol: Document 10/25/24 09:57 HEATHER (Rec: 10/25/24 10:31 HEATHER [id number]) Subjective/History History History Per H&P: Mr. Fuentes is a 84-year-old male with a with a primary history of BPH, GERD, hypothyroidism, dementia, seizures, CHF, hyperlipidemia, A-fib; who presented to the emergency department today from [facility] with complaints of abdominal pain, chest discomfort/tightness, weakness, and increased confusion. Patient was recently admitted at [facility] for pneumonia, he states his visit there was approximately 10 days. He was then transferred to [facility] for rehabilitation. His workup in the emergency room revealed he was in atrial fibrillation RVR, heart rate 132. Workup showed leukocytosis 21,000, FREDY creatinine 1.5, initial elevated troponin 0.04, and a BNP of 12,600. Imaging was obtained, CT which was independently interpreted by me showing bilateral pleural groundglass opacities likely bilateral pleural effusions. Patient does have known dementia but appeared to be more confused than normal per his family. He also has a new requirement of 2 L nasal cannula. Subjective Subjective Pt is a questionable historian. Pt reports he was ambulatory with RW and lives home alone. Pt reports he was at [facility] for 2 days receiving rehab prior to admission. [facility] How much help from another person do you currently need... Turning from your A lot back to your side while in a flat bed without using bedrails? Moving from lying on A lot back to sitting on the side of a flat bed without using bedrails? Moving to and from a A lot bed to a chair ( including a wheelchair)? Standing up from a A lot chair using your arms? (e.g., wheelchair, bedside chair) Walking in hospital A lot room? Climbing 3-5 steps A lot with a railing? Mobility Score 12 Mobility Level [facility] Mobility 4 Move to chair/commode Mobility Calculator Rehab PT IP Eval Objective Appearance Patient Behavior Appropriate,Cooperative Difficulty following none instructions Speech Pattern Clear Ambulation Patient Able to No Ambulate Balance Ability to Arise Unable Transfers Bed Transfer Ability Maximum x 2 (75% assist) Rehab PT IP prob,goals,plan Problems Date of Evaluation: 10/25/24 PT IP Problems Bed Mobility,Transfers,Gait,Balance,Self care,Safety Rehab Potential Rehab Potential Good Plan PT Intervention Plan Bed Mobility,Transfers,Gait,Balance,Self care,Safety, Therapeutic Exercise Other Intervention 1-2 times Plan PT Plan Frequency Daily Duration LOS Discharge Plan PT Discharge Plan Initial physical therapy evaluation performed. Patient presents below baseline at this time in functional mobility, transfers, and strength. Pt not safe to return home at this time d/t current level of functional mobility. PT recommending short-term rehabilitation stay upon d/c from [facility]. Pt would benefit from skilled PT while at [facility] to prevent further functional decline and maximize safety with mobility. Eval Complexity Eval Charge Codes 90693 - Moderate Complexity PHYSICIAN CERTIFICATION: I certify the specified therapy services for Christian Fuentes are required, authorized, and reviewed every 30 days.
[2024-10-25] MEDS: FUROSEMIDE 100MG/10ML VIAL 60 MG IV (10:51)
--- NOTE | 2024-10-25 11:44 | HMH.OTEV ---
OT Inpatient Evaluation Rehab OT IP Evaluation Start: 10/25/24 08:14 Freq: ONCE Status: Active Protocol: Document 10/25/24 11:40 FARRUKH (Rec: 10/25/24 11:44 FARRUKH [id number]) Rehab OT IP Assessment Subjective History Per H&P: Mr. Fuentes is a 84-year-old male with a with a primary history of BPH, GERD, hypothyroidism, dementia, seizures, CHF, hyperlipidemia, A-fib; who presented to the emergency department today from [facility] with complaints of abdominal pain, chest discomfort/tightness, weakness, and increased confusion. Patient was recently admitted at [facility] for pneumonia, he states his visit there was approximately 10 days. He was then transferred to [facility] for rehabilitation. His workup in the emergency room revealed he was in atrial fibrillation RVR, heart rate 132. Workup showed leukocytosis 21,000, FREDY creatinine 1.5, initial elevated troponin 0.04, and a BNP of 12,600. Imaging was obtained, CT which was independently interpreted by me showing bilateral pleural groundglass opacities likely bilateral pleural effusions. Patient does have known dementia but appeared to be more confused than normal per his family. He also has a new requirement of 2 L nasal cannula. Subjective I am tired. Pt supine when therapy arrived. Pt agreed to participate in initial OT eval. Pt Pt is a questionable historian and jumbles on words. Pt reports functional mobility with RW and lives home alone. Pt reports he was at [facility] for 2 days receiving rehab prior to admission at [facility]. Pt agreed to sit on EOB. Pt went from supine to EOB with Max A. Pt then sat on EOB with Mod A. Pt then went from EOB to supine with Max A. Pt left supine in bed with call light and all other needs within reach. CM management confirmed pt was at [facility]. Objective Patient Orientation Person Right Upper Mod Limitation 50% Extremity Gross ROM Left Upper Extremity Mod Limitation 50% Gross ROM Shoulder ROM Muscle Weakness Limitations Elbow ROM Muscle Weakness Limitations Bed Mobility bed mobility-scooting,bed mobility - supine/sit Assist Level Maximum x 1 (75% assist) Decrease in Yes Endurance Rehab OT IP prob,goals,plan Problems Date of Evaluation: 10/25/24 OT IP Problems Bed Mobility,Transfers,Balance,Self care,Safety Rehab Potential Rehab Potential Good Equipment Needs Assistive Devices Rolling / Wheeled Walker Plan OT intervention Plan Bed Mobility,Transfers,Balance,Self care,Safety, Therapeutic Exercise OT Plan Frequency Daily Duration LOS Discharge Goals Bed Mobility Ability Assistance x1 Sit to Stand Chair Moderate x 1 (50% assist) Transfer Ability Chair Transfer Moderate x 1 (50% assist) Ability Chair Transfer Sit to/from Ambulatory Technique Chair Transfer Rolling Walker Assistive Devices Feeding Ability Assist with Tray Set Up Commode/Toilet Raised Toilet Seat,Grab Bars Transfer Assistive Devices Decrease in No Endurance Discharge Plan OT Discharge Plan Patient presents below baseline at this time in endurance, transfers, and strength. Pt not safe to return home at this time d/t functional limitations in occupational performance. OT recommending short-term rehabilitation stay upon d/c from [facility]. Pt would benefit from skilled acute OT while at [facility] to prevent further functional decline in occupational performance. Eval Complexity Eval Charge Codes 45615 - Moderate Complexity PHYSICIAN CERTIFICATION: I certify the specified therapy services for Christian Fuentes are required, authorized, and reviewed every 30 days.
--- NOTE | 2024-10-25 12:21 | PC.NURSE ---
patient being transferred to ICU for amiodarone drip, report called to Shruthi DE LA O.
--- NOTE | 2024-10-25 12:24 | PC.NURSE ---
Patient arrived to ICU room 261. Continuation of care plan.
--- NOTE | 2024-10-25 12:42 | PC.NURSE ---
Patient arrived to ICU room 261. Continuation of care plan.
[2024-10-25] MEDS: AMIODARONE HCL 150 MG in DEXTROSE 5 % IN WATER 100 ML 618 MG IV (12:46)
[2024-10-25] MEDS: POTASSIUM CHLORIDE 20MEQ TAB 40 MEQ PO ×2 (12:47→16:17)
[2024-10-25] MEDS: CEFEPIME HCL 2 GM in 0.9 % SODIUM CHLORIDE 100 ML IV (12:47)
--- NOTE | 2024-10-25 12:49 | PC.NURSE ---
Pt left floor to go to ICU @[id number]
[2024-10-25] MEDS: AMIODARONE HCL 900 MG in DEXTROSE 5 % IN WATER 500 ML 34.53 MG IV (12:59)
--- NOTE | 2024-10-25 14:41 | P.PN_ITS ---
<Statement entered by Rowdy Almaraz MD - 10/25/24 15:59> Rounded on patient after nurse practitioner. Personally examined and interviewed patient. Agree with exam findings and care plan as documented. Subjective *Date: 10/25/24 *Time: 15:10 Interval history: Patient is resting in bed. He states that his work of breathing is easier after the breathing treatment this morning. Still on 2 L nasal cannula. Patient is not as interactive today, he is lethargic. Medical Exam Vital signs and Labs for Last 24 Hours: Vital Signs Temp Pulse Pulse Resp BP BP Pulse Ox 10/25/24 14:33 10/25/24 13:45 100 H 18 94 L 10/25/24 13:30 104 H 19 94 L 10/25/24 13:15 110 H 22 93 L 10/25/24 13:00 110 H 19 96/77 L 94 L 10/25/24 13:00 10/25/24 12:45 124 H 16 94 L 10/25/24 12:41 120 H 20 93/76 L 94 L 10/25/24 12:39 121 H 22 94 L 10/25/24 12:30 103 H 94 L 10/25/24 12:00 115 H 10/25/24 12:00 98.5 F 112 H 18 156/71 H 96 10/25/24 11:00 10/25/24 09:10 110 H 10/25/24 09:10 120 H 10/25/24 09:10 94 L 10/25/24 09:00 10/25/24 08:31 98.2 F 120 H 18 114/85 94 L 10/25/24 08:00 2 L 10/25/24 07:39 98.2 F 120 H 18 114/85 94 L 10/25/24 06:33 10/25/24 05:00 10/25/24 04:00 110 H 10/25/24 04:00 97.8 F 98 H 16 101/71 L 94 L 10/25/24 03:00 10/25/24 01:00 10/25/24 00:00 100 H 10/25/24 00:00 98.0 F 115 H 16 113/74 94 L 10/24/24 23:00 10/24/24 21:00 10/24/24 20:00 100 H 93 L 10/24/24 20:00 100 H 06/25/25 20:00 97.8 F 96 H 18 108/70 L 93 L 10/24/24 18:38 10/24/24 17:00 10/24/24 16:51 110 H 10/24/24 16:00 97.8 F 105 H 17 103/45 L 93 L 10/24/24 15:00 O2 Del Method O2 Flow Rate 10/25/24 14:33 Nasal Cannula 2 10/25/24 13:45 Nasal Cannula 2 10/25/24 13:30 Nasal Cannula 2 10/25/24 13:15 Nasal Cannula 2 10/25/24 13:00 Nasal Cannula 2 10/25/24 13:00 Nasal Cannula 2 10/25/24 12:45 Nasal Cannula 2 10/25/24 12:41 Nasal Cannula 2 10/25/24 12:39 Nasal Cannula 2 10/25/24 12:30 Nasal Cannula 2 10/25/24 12:00 10/25/24 12:00 Room Air 10/25/24 11:00 Nasal Cannula 2 10/25/24 09:10 10/25/24 09:10 10/25/24 09:10 Nasal Cannula 2 10/25/24 09:00 Nasal Cannula 2 10/25/24 08:31 Nasal Cannula 2 10/25/24 08:00 Nasal Cannula 10/25/24 07:39 Nasal Cannula 10/25/24 06:33 Nasal Cannula 2 10/25/24 05:00 Nasal Cannula 2 10/25/24 04:00 10/25/24 04:00 Nasal Cannula 10/25/24 03:00 Nasal Cannula 2 10/25/24 01:00 Nasal Cannula 2 10/25/24 00:00 10/25/24 00:00 Nasal Cannula 10/24/24 23:00 Nasal Cannula 2 10/24/24 21:00 Nasal Cannula 2 10/24/24 20:00 Nasal Cannula 2 10/24/24 20:00 10/24/24 20:00 Nasal Cannula 10/24/24 18:38 Nasal Cannula 2 10/24/24 17:00 Nasal Cannula 2 10/24/24 16:51 10/24/24 16:00 Nasal Cannula 2 10/24/24 15:00 Nasal Cannula 2 Intake and Output 10/24/24 10/25/24 10/25/24 23:59 07:59 15:59 Intake Total 460 / 940 240 / 240 Output Total 875 / 1725 350 / 960 610 / 960 Balance -415 / -785 -350 / -720 -370 / -720 Intake: Intake, Oral Amount 360 / 840 240 / 240 Intake, Total IV Amount 100 / 100 Cefepime HCl 2 gm In 0.9 % 100 / 100 Sodium Chloride 100 ml @ 200 mls/hr IV Q12H [facility] Rx#:[id number] Output: Output, Urine Amount 875 / 975 350 / 960 610 / 960 Other: Number of Unmeasured Voids 0 0 0 Number of Bowel Movements 1 1 Weight 98.384 kg 93.38 kg Patient Weight 10/25/24 23:59 Weight 93.38 kg Laboratory Results - last 24 hr 10/25/24 05:45: WBC 16.6 H, RBC 3.78 L, Hgb 11.6 L D, Hct 35.0 L, MCV 92.6, MCH 30.7, MCHC 33.1, RDW 16.0, Plt Count 177, MPV 11.4 H, Neut % (Auto) 86.2 H, Lymph % (Auto) 5.9 L, [place] % (Auto) 7.2, Eos % (Auto) 0.1, Baso % (Auto) 0.1, Neut # (Auto) 14.3 H, Lymph # (Auto) 1.0, [place] # (Auto) 1.2 H, Eos # (Auto) 0.0, Baso # (Auto) 0.0, Sodium 131 L, Potassium 3.3 L D, Chloride 93 L, Carbon Dioxide 27, Anion Gap 14.3, BUN 57 H, Creatinine 1.60 H, Estimated Creat Clear 50, Estimated GFR 42 L, Est GFR ( Amer) 50 L, Glucose 91 D, Calcium 8.1 L, Magnesium 2.4 H, Total Bilirubin 0.4, AST 75 H D, ALT 40 D, Alkaline Phosphatase 67, Total Protein 5.9 L, Albumin 2.9 L, Globulin 3.0, Album in/Globulin Ratio 1.0 L, Triglycerides 76, Cholesterol 106 L, LDL Cholesterol Direct 39.66 L, VLDL Cholesterol 15, HDL Cholesterol 23 L, Cholesterol/HDL Ratio 4.6 H I & O for Labs for Last 24 Hours: Intake & Output 10/22/24 10/23/24 10/24/24 10/25/24 23:59 23:59 23:59 23:59 Intake Total 940 / 940 240 / 240 Output Total 1625 / 1725 960 / 960 Balance -685 / -785 -720 / -720 Weight 92.533 kg 93.38 kg Microbiology Reports for the Last 24 Hours: Microbiology 10/24/24 07:37 Blood Blood Culture - Preliminary NO GROWTH AFTER 24 HOURS 10/24/24 07:20 Blood Blood Culture - Preliminary NO GROWTH AFTER 24 HOURS Constitutional: Present mild distress, obese and cooperative Head: Present atraumatic Eyes: Present as per HPI ENT: Present normal exam Neck: Present normal inspection and full ROM Respiratory: Present wheezes (Audible expiratory wheezing) and symmetric chest movement; Absent able to speak in complete sentences Cardiac: Present Tachycardia Comment:: Irregular heart rhythm GI: Present soft and normal bowel sounds; Absent tenderness or guarding Rectal (male): Present deferred Comment:: Excoriated Skin: Present intact, dry and pallor Comment:: Edematous Neuro: Present Weakness and oriented x 3 Assessment and Plan *Assessment and plan (1) Atrial fibrillation with rapid ventricular response: Status: Acute Category: Medical Code(s): I48.91 - Unspecified atrial fibrillation (2) Acute on chronic heart failure with preserved ejection fraction (HFpEF): Status: Acute Category: Medical Code(s): I50.33 - Acute on chronic diastolic (congestive) heart failure (3) Sepsis: Status: Acute Category: Medical Code(s): A41.9 - Sepsis, unspecified organism (4) History of seizures: Status: Acute Category: Medical Code(s): Z87.898 - Personal history of other specified conditions (5) GERD (gastroesophageal reflux disease): Status: Acute Category: Medical Code(s): K21.9 - Gastro-esophageal reflux disease without esophagitis (6) Physical deconditioning: Status: Acute Category: Medical Code(s): R53.81 - Other malaise (7) BPH (benign prostatic hyperplasia): Status: Acute Category: Medical Code(s): N40.0 - Benign prostatic hyperplasia without lower urinary tract symptoms (8) Pleural effusion, bilateral: Status: Acute Category: Medical Code(s): J90 - Pleural effusion, not elsewhere classified (9) Acute kidney injury: Status: Acute Category: Medical Code(s): N17.9 - Acute kidney failure, unspecified (10) Hospital-acquired pneumonia: Status: Acute Category: Medical Code(s): J18.9 - Pneumonia, unspecified organism; Y95 - Nosocomial condition Plan Mr. Fuentes is an 84-year-old male who is admitted to the hospital for HFpEF exacerbation, A-fib RVR, sepsis after recent stay at [facility] for a diagnosis of pneumonia. He came into the emergency department today with weakness, abdominal pain, chest discomfort. He was worked up in the emergency department and found to have fluid overload, bilateral pleural effusions, pericardial effusion, left lower lobe consolidation. After discharge from [facility] he was transition to [place] for short-term rehabilitation. During examination he has no complaints. He is requiring 2 L O2 to maintain oxygen saturation above 92%. He was found to be 87% on room air in the emergency room. Patient was also found to have a white count of 21.4, electrolyte abnormalities, hyponatremic sodium 131, FREDY BUN 51, creatinine 1.5. BNP elevated at 12,600, hypothyroidism TSH 7.32. After discussion with the emergency room physician, decision was made by myself to admit patient for further management. Pulmonology and cardiology consulted for input. #Acute on chronic HFpEF #Community-acquired pneumonia #Sepsis #Left lower lobe consolidation #Acute hypoxic respiratory failure ?Independently reviewed chest CTA, moderate effusions noted, left lower lobe consolidation noted. ?Patient started on cefepime and vancomycin empirically, will monitor for toxicity. Patient notable leukocytosis 21.9 on admission, WBC today 16.6. ?Blood cultures pending. ?Echo results show EF of 70%. After review of hospital records from [facility], shows echo 2 weeks ago 55%. ?Patient given dose of Lasix yesterday in the emergency room, given another dose of Lasix today. Urinary output 720 mL today. ?Repeat CBC, CMP in the AM. #Atrial fibrillation with RVR #FREDY ?Patient was diagnosed with A-fib recently, started on amiodarone and Eliquis. Patient states that he was in normal sinus rhythm prior to this admission. Patient currently in A-fib RVR heart rate 120s. Continuous cardiac telemetry ordered. ?Patient did not convert to normal sinus rhythm with oral amiodarone. Patient moved to stepdown for continuous amiodarone drip for 24 hours per cardiology recommendation. Patient still in atrial fibrillation with heart rate 100-120s. ? Continue home medication amiodarone and Eliquis. ?Discussed with cardiology etiology of patient's pleural effusions, infectious etiology questionable. Continue empiric antibiotics. ?Anasarca noted today. #Hypothyroidism #history of seizures #GERD #BPH ?Restart home medications per patient's MAR. ?TSH 7.32. Patient currently taking levothyroxine 50 mcg daily. #Physical deconditioning ?PT/OT consulted for further evaluation. Full code Cardiac diet Ambulate as tolerated Eliquis for VTE
[2024-10-25] MEDS: ACETAMINOPHEN 325MG TAB 650 MG PO (16:18)
--- NOTE | 2024-10-25 17:42 | PC.NURSE ---
Patient complains of cough and has audible wheezing. Respiratory at bedside. Continuation of care plan.
--- NOTE | 2024-10-25 17:42 | PC.NURSE ---
Patient complains of cough and wheezing. Respiratory at bedside. Continuation of care plan.
--- NOTE | 2024-10-25 18:09 | PC.NURSE ---
Primary RN bladder scanned patient at this time. Patient has 54mL in his bladder. Continuation of care plan.
--- NOTE | 2024-10-25 18:24 | PC.NURSE ---
Patient has audible wheezing and coughing. Patient has diminished lung sounds bilateral throughout and an increase in respiratory effort. Primary RN notified at this time. No new orders received. Continuation of care plan.
[2024-10-25] MEDS: VANCOMYCIN/WATER FOR INJ (PEG) 1.75 GM/350 ML PIGGYBACK IV (20:07)
[2024-10-26] VITALS (27 sets, daily range): BP systolic 98–128; BP diastolic 47–77; PULSE 68–111; RESP 13–23; TEMP 36.4–37.1; O2SAT 91–97; BMI 32.6
[2024-10-26] MEDS: CEFEPIME HCL 2 GM in 0.9 % SODIUM CHLORIDE 100 ML IV ×2 (00:18→11:26)
[2024-10-26] MEDS: NYSTATIN TOPICAL POWDER 30GM TP ×3 (00:18→21:00)
[2024-10-26] MEDS: LEVALBUTEROL 1.25MG/3ML NEB 1.25 MG IH ×4 (00:29→22:21)
--- NOTE | 2024-10-26 04:11 | PC.NURSE ---
Nurse turned down amio gtt to 0.5mg/hr at 0335.
[2024-10-26] MEDS: AMIODARONE HCL 900 MG in DEXTROSE 5 % IN WATER 500 ML 17.27 MG IV (04:28)
[2024-10-26 06:06] LABS: Basophils % 0.2 % (0.1-2.0); Eosinophils % 0.1 % (0.1-12.0); Hematocrit 34.6 % (42.0-52.0); Hemoglobin 11.2 g/dL (14.1-18.0); Immature Granulocytes # 0.14 10^3uL; Immature Granulocytes % 1.1 %; Lymphocytes # 0.9 K/mm3 (0.7-4.5); Mean Corpuscular HGB Conc 32.4 g/dL (31.8-35.4); Mean Corpuscular Hemoglobin 30.4 pg (27.0-31.2); Mean Corpuscular Volume 93.8 fl (80-94); Mean Platelet Volume 11.4 fl (7.4-10.4); Monocytes # 1.1 K/mm3 (0.1-1.0); Monocytes % 8.4 % (1.7-9.3); Neutrophils % 83.2 % (37.0-80.0); Nucleated Red Blood Cells # 0 10^3/uL; Nucleated Red Blood Cells % 0 %; Platelet Count 180 K/mm3 (142-424); Red Blood Count 3.69 M/mm3 (4.60-6.20); Red Cell Distribution Width-SD 55.9 fL; White Blood Count 13.2 K/mm3 (4.8-10.8)
[2024-10-26 06:16] LABS: Chloride 95 mmol/L (98-107); Potassium 3.6 mmoL/L (3.5-5.1); Sodium 131 mmol/L (136-145)
[2024-10-26 06:19] LABS: Alanine Aminotransferase 58 U/L (12-78); Alkaline Phosphatase 86 U/L (38-126); Anion Gap 15.6 mEq/L (5-15); Aspartate Amino Transferase 104 U/L (17-59); Bilirubin,Total 0.4 mg/dl (0.2-1.3); Blood Urea Nitrogen 58 mg/dl (9-20); Calcium 7.9 mg/dl (8.4-10.2); Carbon Dioxide 24 mmol/L (22.0-30.0); Creatinine Clearance Estimated 45 mL/min (50-200); Estimated Glomerular Filt Rate 39 ml/min (>60); GFR (African American) 47 ML/MIN (>60); Globulin 3.1 g/dL (1.3-3.2); Glucose 98 mg/dl (74-100); Magnesium 2.4 mg/dl (1.6-2.3); Total Protein,Serum 6.1 g/dl (6.3-8.2)
[2024-10-26] MEDS: LEVOTHYROXINE 50MCG (0.05MG) TAB 50 MCG PO (06:25)
[2024-10-26] MEDS: PANTOPRAZOLE 40MG TABLET 40 MG PO (06:26)
--- NOTE | 2024-10-26 06:37 | PC.NURSE ---
patient has had small amounts of urine tonight, Rn decided to bladder scan patient at 0615 this AM and scan showed greater than 600ml, Nurse called provider emmanuel and she said to in and out cath. Rn did an intermittent cath on the patient and got 550ml out of dark brown urine with some maroon tone to the color, similar to what was given in description yesterday about his urine output from dayshift team. will pass along to dayshift this morning in report.
[2024-10-26] MEDS: APIXABAN 5MG TABLET 5 MG PO ×2 (08:26→21:57)
[2024-10-26] MEDS: AMIODARONE 200MG TABLET 200 MG PO ×2 (08:26→21:57)
[2024-10-26] MEDS: levETIRAcetam 500 MG TABLET 1000 MG PO ×2 (08:26→21:57)
[2024-10-26] MEDS: DIVALPROEX 250MG (EXTENDED-RELEASE) TABLET 1000 MG PO ×2 (08:26→21:57)
[2024-10-26] MEDS: FINASTERIDE 5MG TABLET 5 MG PO (08:26)
[2024-10-26] MEDS: ASPIRIN 81MG CHEWABLE TABLET 81 MG PO (08:26)
[2024-10-26] MEDS: TAMSULOSIN 0.4MG CAPSULE 0.4 MG PO (08:26)
--- NOTE | 2024-10-26 09:31 | EXP.PULM.PN ---
Subjective *Date: 10/26/24 *Time: 12:12 Interval history: No acute respiratory events overnight. Patient denies any new respiratory complaints. Pulmonology Exam Inpatient Vital signs and Labs for Last 24 Hours: Temp Pulse Resp BP Pulse Ox O2 Del Method O2 Flow Rate 97.7 F 97 H 16 109/47 L 96 Nasal Cannula 3 10/26/24 08:00 10/26/24 09:00 10/26/24 09:00 10/26/24 09:00 10/26/24 09:00 10/26/24 09:00 10/26/24 09:00 Laboratory Results - last 24 hr 10/26/24 04:55: WBC 13.2 H, RBC 3.69 L, Hgb 11.2 L, Hct 34.6 L, MCV 93.8, MCH 30.4, MCHC 32.4, RDW 16.0, Plt Count 180, MPV 11.4 H, Neut % (Auto) 83.2 H, Lymph % (Auto) 7.0 L, [place] % (Auto) 8.4, Eos % (Auto) 0.1, Baso % (Auto) 0.2, Neut # (Auto) 11.0 H, Lymph # (Auto) 0.9, [place] # (Auto) 1.1 H, Eos # (Auto) 0.0, Baso # (Auto) 0.0, Sodium 131 L, Potassium 3.6, Chloride 95 L, Carbon Dioxide 24, Anion Gap 15.6 H, BUN 58 H, Creatinine 1.70 H, Estimated Creat Clear 45, Estimated GFR 39 L, Est GFR ( Amer) 47 L, Glucose 98, Calcium 7.9 L, Magnesium 2.4 H, Total Bilirubin 0.4, AST 104 H D, ALT 58 D, Alkaline Phosphatase 86, Total Protein 6.1 L, Albumin 3.0 L, Globulin 3.1, Albumin/Globulin Ratio 1.0 L Temp Pulse Resp BP Pulse Ox O2 Del Method O2 Flow Rate 97.6 F 123 H 20 125/91 H 95 Nasal Cannula 2 10/24/24 12:00 10/24/24 12:00 10/24/24 12:00 10/24/24 12:00 10/24/24 12:00 10/24/24 12:00 10/24/24 12:00 Laboratory Results - last 24 hr 10/24/24 07:15: VBG pH 7.47 H, VBG pCO2 35.0, VBG pO2 43.7 H, VBG HCO3 24.8, VBG Total CO2 25.9, VBG O2 Saturation 79.1 H, VBG Base Excess 1.2, VBG Lactic Acid 2.0 10/24/24 07:20: WBC 21.4 H*, RBC 4.34 L, Hgb 13.7 L, Hct 40.4 L, MCV 93.1, MCH 31.6 H, MCHC 33.9, RDW 16.0, Plt Count 202, MPV 10.8 H, Neut % (Auto) 86.0 H, Lymph % (Auto) 6.3 L, [place] % (Auto) 6.9, Eos % (Auto) 0.0 L, Baso % (Auto) 0.1, Neut # (Auto) 18.4 H, Lymph # (Auto) 1.4, Peach # (Auto) 1.5 H, Eos # (Auto) 0.0, Baso # (Auto) 0.0, PT 14.0 H, INR 1.28 H, APTT 27.2, Sodium 131 L, Potassium 4.3, Chloride 93 L, Carbon Dioxide 27, Anion Gap 15.3 H, BUN 51 H, Creatinine 1.50 H, Estimated Creat Clear 50, Estimated GFR 45 L, Est GFR ( Amer) 54 L, Glucose 114 H, Lactate 1.4, Calcium 8.7, Magnesium 2.4 H, Total Bilirubin 0.6, AST 58, ALT 29, Alkaline Phosphatase 68, Troponin I 0.04 H, NT-Pro-B Natriuret Pep 47407 H, Total Protein 6.7, Albumin 3.1 L, Globulin 3.6 H, Albumin/Globulin Ratio 0.9 L, Lipase 130, Procalcitonin 0.496, TSH 7.32 H, Thyroxine (T4) 8.2 10/24/24 07:51: Urine Color Yellow, Urine Appearance Clear, Urine pH 6.0, Ur Specific [place] 1.010, Urine Protein Negative, Urine Glucose (UA) Negative, Urine Ketones Negative, Urine Blood Negative, Urine Nitrate Negative, Urine Bilirubin Negative, Urine Urobilinogen 0.2, Ur Leukocyte Esterase Negative, Urine RBC None, Urine WBC Occasional, Ur Squamous Epith Cells Occasional, Urine Bacteria None 10/24/24 10:34: Troponin I 0.03 I & O for Labs for Last 24 Hours: Intake & Output 10/23/24 10/24/24 10/25/24 10/26/24 23:59 23:59 23:59 23:59 Intake Total 940 / 940 734 / 834 100 / 100 Output Total 1625 / 1725 960 / 960 550 / 550 Balance -685 / -785 -226 / -126 -450 / -450 Weight 204 lb 205 lb 13.882 oz 208 lb 1.156 oz Intake & Output 10/21/24 10/22/24 10/23/24 10/24/24 23:59 23:59 23:59 23:59 Intake Total 480 / 480 Output Total 750 / 750 Balance -270 / -270 Weight 204 lb Microbiology Reports for the Last 24 Hours: Microbiology 10/24/24 07:37 Blood Blood Culture - Preliminary NO GROWTH AFTER 48 HOURS 10/24/24 07:20 Blood Blood Culture - Preliminary NO GROWTH AFTER 48 HOURS Constitutional: Present moderate distress Head: Present normocephalic and atraumatic ENT: Present normal exam, normal oropharynx and mucous membranes moist Neck: Present normal inspection and full ROM Respiratory: Present respiratory distress, diminished air movement and able to speak in complete sentences; Absent rhonchi or wheezes Cardiac: Present S1/S2, Tachycardia and radial pulses present; Absent Reg Rate and Rhythm GI: Present soft and distention; Absent tenderness or guarding Skin: Present intact; Absent cyanosis or jaundice Neuro: Present alert and awake Extremities: Present normal inspection; Absent clubbing or cyanosis Psychiatric: Present unable to assess Assessment and Plan *Assessment and plan (1) Community acquired pneumonia: Status: Acute Category: Medical Code(s): J18.9 - Pneumonia, unspecified organism (2) Acute hypoxemic respiratory failure: Status: Acute Category: Medical Code(s): J96.01 - Acute respiratory failure with hypoxia (3) Pleural effusion, bilateral: Status: Acute Category: Medical Code(s): J90 - Pleural effusion, not elsewhere classified Plan Much of the history is obtained from patient and family Mr. Disla is a 84-year-old male admitted from a skilled home halfway for worsening respiratory distress and pulmonary was called for further evaluation and management. Patient is all admitted to [facility] in May 2024, most recently early September 2024 for worsening respiratory failure and bilateral pleural effusions, discharged home on antibiotics. 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 No significant smoking history not using any inhalers or oxygen supplementation at baseline up until his recent discharge from [facility] while he was discharged home on oxygen supplementation and nebulization therapy CTA PE protocol upon admission no evidence of pulmonary embolism. Bilateral moderate pleural effusions with adjacent atelectasis. No dense consolidative/airspace changes. Pericardial effusion also noted. Neutrophilic prominent leukocytosis upon admission. Normal procalcitonin. Echo EF at 70%. Diastolic function indeterminate. CT abdomen liver normal echogenicity. Most recent echocardiogram from [facility] normal EF at 55%. When patient clinical evidence of volume overload with normal cardiac functionality he would definitely benefit from right heart cath. It would be less likely the bilateral pleural effusions are secondary to parapneumonic effusions though cannot be completely ruled out. Will follow with CT imaging performed at [facility] for further review. Interval update: Lower extremity venous Doppler negative for DVT. No significant wheezing noted on auscultation. No acute respiratory events overnight. continued improvement in leukocytosis. Continue to receive cefepime. Blood cultures no growth. Chest x-ray from this morning continue to show bilateral pleural effusions and adjacent atelectasis. CT chest upon admission consistent with atelectasis than airspace disease Records from [facility] reviewed from patient hospital from earlier month. Presented with worsening respiratory distress and weakness, found to have left-sided pleural effusion and concerning left lobe airspace disease status post completion of ceftriaxone and doxycycline and management for heart failure with preserved ejection fraction. Effusions worsened during his hospital admission with subsequent x-ray shows bilateral mild to moderate pleural effusions. Discharge summary also noted some difficulty with diuresis secondary to hemodynamic instability and A-fib RVR. Plan: Change nebs to levalbuterol every 6 as needed Wean antibiotics to levofloxacin from pulmonary standpoint Continue oxygen supplementation to maintain O2 saturation above 90% and above Volume optimization as per primary team and cardiology
--- NOTE | 2024-10-26 09:32 | XR_ITS ---
FINAL REPORT CLINICAL HISTORY: Pneumonia FINDINGS: There are bibasilar densities and moderate pleural effusions. Parenchymal opacities are identified, likely atelectasis although pneumonia is not excluded. There is no pneumothorax. Mediastinum is unremarkable. Heart size is normal. IMPRESSION: Moderate pleural effusions. Reviewed, Interpreted and Dictated by Alexey Ovalles MD Transcribed by Breana Weller Authenticated and [facility]
--- NOTE | 2024-10-26 09:48 | EXP.CARD.PN ---
Subjective Subjective Date: 10/26/24 Time: 09:48 Principal diagnosis: CHF, pneumonia/sepsis, A. fib Interval history: 84-year-old white male lying in bed in no acute distress. IV Amio continues. Telemetry shows A-fib with improved rate in the 90-100 bpm range. Exam Data for Last 24 hours Vital signs and Labs for Last 24 Hours: Temp Pulse Resp BP Pulse Ox O2 Del Method O2 Flow Rate 97.7 F 97 H 16 109/47 L 96 Nasal Cannula 3 10/26/24 08:00 10/26/24 09:00 10/26/24 09:00 10/26/24 09:00 10/26/24 09:00 10/26/24 09:00 10/26/24 09:00 Laboratory Results - last 24 hr 10/26/24 04:55: WBC 13.2 H, RBC 3.69 L, Hgb 11.2 L, Hct 34.6 L, MCV 93.8, MCH 30.4, MCHC 32.4, RDW 16.0, Plt Count 180, MPV 11.4 H, Neut % (Auto) 83.2 H, Lymph % (Auto) 7.0 L, [place] % (Auto) 8.4, Eos % (Auto) 0.1, Baso % (Auto) 0.2, Neut # (Auto) 11.0 H, Lymph # (Auto) 0.9, [place] # (Auto) 1.1 H, Eos # (Auto) 0.0, Baso # (Auto) 0.0, Sodium 131 L, Potassium 3.6, Chloride 95 L, Carbon Dioxide 24, Anion Gap 15.6 H, BUN 58 H, Creatinine 1.70 H, Estimated Creat Clear 45, Estimated GFR 39 L, Est GFR ( Amer) 47 L, Glucose 98, Calcium 7.9 L, Magnesium 2.4 H, Total Bilirubin 0.4, AST 104 H D, ALT 58 D, Alkaline Phosphatase 86, Total Protein 6.1 L, Albumin 3.0 L, Globulin 3.1, Albumin/Globulin Ratio 1.0 L I & O for Last 24 hours: Intake & Output 10/23/24 10/24/24 10/25/24 10/26/24 11:59 11:59 11:59 11:59 Intake Total 1060 / 1060 714 / 714 Output Total 750 / 750 1225 / 1225 1160 / 1160 Balance -750 / -750 -165 / -165 -446 / -446 Weight 204 lb 216 lb 14.4 oz 208 lb 1.156 oz Microbiology Reports for the Last 24 Hours: Microbiology 10/24/24 07:37 Blood Blood Culture - Preliminary NO GROWTH AFTER 48 HOURS 10/24/24 07:20 Blood Blood Culture - Preliminary NO GROWTH AFTER 48 HOURS Constitutional Constitutional: no acute distress *Routine Respiratory Exam Respiratory: Present decreased breath sounds; Absent wheezes *Routine Cardiovascular Exam Cardiovascular: Present irregularly irregular Progress Note: A&P Assessment and plan (1) Community acquired pneumonia: Status: Acute (2) Acute hypoxemic respiratory failure: Status: Acute (3) Pleural effusion, bilateral: Status: Acute (4) Acute on chronic heart failure with preserved ejection fraction (HFpEF): Status: Acute (5) Sepsis: Status: Acute (6) Left lower lobe consolidation: Status: Acute (7) Atrial fibrillation with rapid ventricular response: Status: Acute (8) Acute kidney injury: Status: Acute (9) Hyperlipemia: Status: Acute (10) BPH (benign prostatic hyperplasia): Status: Acute (11) GERD (gastroesophageal reflux disease): Status: Acute (12) History of seizures: Status: Acute (13) Physical deconditioning: Status: Acute Assessment and Plan Assessment and Plan for All Diagnoses:: 1. Acute on Chronic HFpEF - EWING, Probnp 12k, moderate bilateral pleural effusions and pericardial effusion - no formal dx of HF per family but this is 3rd admission this calendar year for vol overload, [facility] records pending - No GDMT due to hypotension, will reassess throughout admission. - One-time dose of Lasix today - Breathing treatments as ordered - Echo shows EF hyperdynamic at 70%. 2. Pericardial Effusion - noted on CTA in setting of HFpEF and PNA - continue lasix PRN - ECHO shows only trivial pericardial effusion 3. A-fib RVR - new dx a few weeks ago at [facility] - HR 100-120 here, improved with IV amio overnight, 10/25/2024 - Continue Eliquis and Amio (will increase to 200 mg BID) - diuresing should improving O2 and adrenergic drive, may add AVB if needed to keep HR 120s or less in setting of PNA. - Monitor closely with hypotension, low 90s systolic here 4. Acute Hypoxic Resp Failure w/LLL consolidation and recent PNA - WBC 21k, afebrile - antibiotics per Hospitalist 5. AMS - near baseline per reports 6. History of hypotension -Patient is on midodrine at home 7. FREDY, ?CKD -Cr 1.7 with GFR 39 8. LE edema, likely some component of dependent edema due to decreased activity -LE venous duplex negative for DVT -IV lasix yesterday with slight negative urine output -Repeat lasix today despite elevated renal functions IV lasix 80 mg today, may need it daily Continue oral amiodarone after IV completed but will increase to 200 mg BID Start digoxin for additional rate control (0.125 mg IV now and again in 6 hours then 0.125 mg daily)
--- NOTE | 2024-10-26 10:39 | PC.NURSE ---
patient is a Q2turn. Patient is currently left side lying. Heels are floated and boot heel protectors are on the patient. patient's head of bed is to remain at least 30 degrees while eating and 30 mins after per aspiration protocol. call light is within each, seizure pads are on bed rails per seizure precautions and bed alarm is on and functioning. no needs at this time.
[2024-10-26] MEDS: DIGOXIN 0.25MG/ML 2ML AMPUL 125 MCG IV ×2 (10:47→17:28)
[2024-10-26] MEDS: FUROSEMIDE 100MG/10ML VIAL 80 MG IV (10:47)
--- NOTE | 2024-10-26 11:31 | PC.NURSE ---
Digoxin IVP started @ 1106 Digoxin IVP complete @ 1108. Teley strips recordered prior to IVP, mid IVP and end of IVP and placed on pt's chart Pt tolerated well. Initial BP 104/68, BP after IVP 104/66. Remains in A-Fib w/ occasional PVS's noted.
--- NOTE | 2024-10-26 11:56 | PC.NURSE ---
speech therapy was called and made aware of speech consult @[id number]
--- NOTE | 2024-10-26 12:09 | PC.NURSE ---
bogdan care and purewick placement was done by RN.
--- NOTE | 2024-10-26 13:30 | PC.NURSE ---
While provider @ bedside pt reported chest pain that starts on the right side and radiates to his right arm. Pt hand not reported any pain prior to this. Stat EGK and troponins ordered. VSS.
--- NOTE | 2024-10-26 13:44 | ECG_ITS ---
APPROVED REPORT Exam: Resting ECG HR:100 bpm ECG Measurements Heart Rate 100 AXES QRSd 102 QRS -10 QT 361 T 27 QTc 418 Conclusion ATRIAL FIBRILLATION WITH RAPID VENTRICULAR RESPONSE WITH ABERRANT CONDUCTION OR VENTRICULAR PREMATURE COMPLEXES ST DEVIATION AND MODERATE T-WAVE ABNORMALITY, CONSIDER ANTERIOR ISCHEMIA [-0.1+ mV T-WAVE IN V3/V4] ABNORMAL ECG UNCONFIRMED REPORT Electronically signed by : Domenico Ryder MD 10/27/2024 07:50:00
--- NOTE | 2024-10-26 14:02 | PC.NURSE ---
Pt has not voided since AM rounds, provider aware. Eric Hu NP states to bladder scan pt and if > 200 ml noted in bladder to insert huang and anchor. Pt and made aware of plan of care. wishes to wait 30 minutes because pt states he thinks he can void. Pt assisted in sitting up right position and urinal in place. Call reaves w/in reach. Privacy provided. at bedside will notify staff if pt has voided.
--- NOTE | 2024-10-26 14:07 | P.PN_ITS ---
<Statement entered by Rowdy Almaraz MD - 10/26/24 16:35> Rounded on patient after nurse practitioner. Personally examined and interviewed patient. Agree with exam findings and care plan as documented. Subjective *Date: 10/26/24 *Time: 15:36 Medical Exam Vital signs and Labs for Last 24 Hours: Vital Signs Temp Pulse Pulse Resp BP BP Pulse Ox 10/26/24 13:00 10/26/24 12:00 104 H 10/26/24 12:00 97.6 F 99 H 22 104/66 L 93 L 10/26/24 11:15 100 H 10/26/24 11:15 102 H 10/26/24 11:15 95 10/26/24 11:00 100 H 21 98/67 L 95 10/26/24 11:00 10/26/24 10:47 94 H 10/26/24 10:01 95 H 21 103/70 L 93 L 10/26/24 09:00 97 H 16 109/47 L 96 10/26/24 08:43 10/26/24 08:02 95 H 10/26/24 08:00 97.7 F 10/26/24 08:00 99 H 14 109/71 L 97 10/26/24 07:42 100 H 95 10/26/24 07:30 104 H 13 95 10/26/24 06:40 10/26/24 06:00 111 H 19 91 L 10/26/24 06:00 105/72 L 10/26/24 05:51 105 H 10/26/24 05:51 93 H 10/26/24 05:51 96 10/26/24 05:00 106/77 L 10/26/24 05:00 95 H 19 95 10/26/24 05:00 10/26/24 04:00 98.5 F 96 H 18 128/76 95 10/26/24 04:00 95 H 10/26/24 02:47 10/26/24 02:00 104 H 21 113/74 94 L 10/26/24 00:30 95 H 10/26/24 00:30 100 H 10/26/24 00:28 10/26/24 00:00 98.0 F 95 H 20 110/63 91 L 10/26/24 00:00 98 H 10/25/24 22:51 10/25/24 22:00 102 H 17 111/64 91 L 10/25/24 21:00 10/25/24 20:00 98.4 F 98 H 17 106/77 L 93 L 10/25/24 20:00 10/25/24 20:00 102 H 10/25/24 19:15 102 H 16 118/73 93 L 10/25/24 18:45 99 H 19 93 L 10/25/24 18:30 116 H 20 93 L 10/25/24 18:15 105 H 17 93 L 10/25/24 18:15 10/25/24 18:00 104 H 20 106/70 L 92 L 10/25/24 17:45 106 H 22 94 L 10/25/24 17:42 110 H 10/25/24 17:42 112 H 10/25/24 17:42 93 L 10/25/24 17:30 98 H 23 93 L 10/25/24 17:15 104 H 21 93 L 10/25/24 17:00 67 20 106/70 L 93 L 10/25/24 16:46 10/25/24 16:45 104 H 20 95 10/25/24 16:30 110 H 23 94 L 10/25/24 16:15 96 H 21 94 L 10/25/24 16:09 107 H 10/25/24 16:00 103 H 21 111/69 95 10/25/24 16:00 99.3 F 114 H 15 111/69 94 L 10/25/24 15:45 102 H 19 94 L 10/25/24 15:37 95 10/25/24 15:30 95 H 19 95 10/25/24 15:15 97 H 19 95 10/25/24 15:00 18 117/79 10/25/24 14:45 105 H 20 95 10/25/24 14:33 10/25/24 14:31 112 H 21 94 L 10/25/24 14:15 102 H 23 95 O2 Del Method O2 Flow Rate 10/26/24 13:00 Nasal Cannula 2 10/26/24 12:00 10/26/24 12:00 Nasal Cannula 3 10/26/24 11:15 10/26/24 11:15 10/26/24 11:15 Nasal Cannula 2 10/26/24 11:00 Nasal Cannula 3 10/26/24 11:00 Nasal Cannula 2 10/26/24 10:47 10/26/24 10:01 Nasal Cannula 3 10/26/24 09:00 Nasal Cannula 3 10/26/24 08:43 Nasal Cannula 3 10/26/24 08:02 10/26/24 08:00 10/26/24 08:00 Nasal Cannula 3 10/26/24 07:42 Nasal Cannula 3 10/26/24 07:30 Nasal Cannula 3 10/26/24 06:40 Nasal Cannula 3 10/26/24 06:00 10/26/24 06:00 10/26/24 05:51 10/26/24 05:51 10/26/24 05:51 Nasal Cannula 3 10/26/24 05:00 10/26/24 05:00 10/26/24 05:00 Nasal Cannula 3 10/26/24 04:00 Nasal Cannula 2 10/26/24 04:00 10/26/24 02:47 Nasal Cannula 3 10/26/24 02:00 Nasal Cannula 2 10/26/24 00:30 10/26/24 00:30 10/26/24 00:28 Nasal Cannula 2 10/26/24 00:00 Nasal Cannula 2 10/26/24 00:00 10/25/24 22:51 Nasal Cannula 2 10/25/24 22:00 Nasal Cannula 2 10/25/24 21:00 Nasal Cannula 2 10/25/24 20:00 Nasal Cannula 2 10/25/24 20:00 Nasal Cannula 2 10/25/24 20:00 10/25/24 19:15 Nasal Cannula 2 10/25/24 18:45 Nasal Cannula 2 10/25/24 18:30 Nasal Cannula 2 10/25/24 18:15 Nasal Cannula 2 10/25/24 18:15 Nasal Cannula 2 10/25/24 18:00 Nasal Cannula 2 10/25/24 17:45 Nasal Cannula 2 10/25/24 17:42 10/25/24 17:42 10/25/24 17:42 Nasal Cannula 2 10/25/24 17:30 Nasal Cannula 2 10/25/24 17:15 Nasal Cannula 2 10/25/24 17:00 Nasal Cannula 2 10/25/24 16:46 Nasal Cannula 2 10/25/24 16:45 Nasal Cannula 2 10/25/24 16:30 Nasal Cannula 2 10/25/24 16:15 Nasal Cannula 2 10/25/24 16:09 10/25/24 16:00 Nasal Cannula 2 10/25/24 16:00 Nasal Cannula 2 10/25/24 15:45 Nasal Cannula 2 10/25/24 15:37 Nasal Cannula 2 10/25/24 15:30 Nasal Cannula 2 10/25/24 15:15 Nasal Cannula 2 10/25/24 15:00 10/25/24 14:45 Nasal Cannula 2 10/25/24 14:33 Nasal Cannula 2 10/25/24 14:31 Nasal Cannula 2 10/25/24 14:15 Nasal Cannula 2 Intake and Output 10/25/24 10/26/24 10/26/24 23:59 07:59 15:59 Intake Total 494 / 834 100 / 484.371 384.371 / 484.371 Output Total 550 / 550 Balance 494 / -126 -450 / -65.629 384.371 / -65.629 Intake: Intake, Oral Amount 240 / 480 237 / 237 Intake, Total IV Amount 254 / 354 100 / 247.371 147.371 / 247.371 Amiodarone HCl 150 mg In 97 / 97 Dextrose 5 % in Water 100 ml @ 618 mls/hr IV ONCE ONE Rx#: [id number] Amiodarone HCl 900 mg In 157 / 157 Dextrose 5 % in Water 500 ml @ 1 MG/MIN 34.533 mls/hr IV . Q15H1M [facility] Rx#:[id number] Cefepime HCl 2 gm In 0.9 % 100 / 100 Sodium Chloride 100 ml @ 200 mls/hr IV Q12H [facility] Rx#:[id number] Output: Output, Urine Amount 550 / 550 Other: Number of Bowel Movements 1 Weight 94.38 kg Patient Weight 10/26/24 23:59 Weight 94.38 kg Laboratory Results - last 24 hr 10/26/24 04:55: WBC 13.2 H, RBC 3.69 L, Hgb 11.2 L, Hct 34.6 L, MCV 93.8, MCH 30.4, MCHC 32.4, RDW 16.0, Plt Count 180, MPV 11.4 H, Neut % (Auto) 83.2 H, Lymph % (Auto) 7.0 L, [place] % (Auto) 8.4, Eos % (Auto) 0.1, Baso % (Auto) 0.2, Neut # (Auto) 11.0 H, Lymph # (Auto) 0.9, [place] # (Auto) 1.1 H, Eos # (Auto) 0.0, Baso # (Auto) 0.0, Sodium 131 L, Potassium 3.6, Chloride 95 L, Carbon Dioxide 24, Anion Gap 15.6 H, BUN 58 H, Creatinine 1.70 H, Estimated Creat Clear 45, Estimated GFR 39 L, Est GFR ( Amer) 47 L, Glucose 98, Calcium 7.9 L, Magnesium 2.4 H, Total Bilirubin 0.4, AST 104 H D, ALT 58 D, Alkaline Phosphatase 86, Total Protein 6.1 L, Albumin 3.0 L, Globulin 3.1, Albumin/Globulin Ratio 1.0 L I & O for Labs for Last 24 Hours: Intake & Output 10/23/24 10/24/24 10/25/24 10/26/24 23:59 23:59 23:59 23:59 Intake Total 940 / 940 734 / 834 484.371 / 484.371 Output Total 1625 / 1725 960 / 960 550 / 550 Balance -685 / -785 -226 / -126 -65.629 / -65.629 Weight 92.533 kg 93.38 kg 94.38 kg Microbiology Reports for the Last 24 Hours: Microbiology 10/24/24 07:37 Blood Blood Culture - Preliminary NO GROWTH AFTER 48 HOURS 10/24/24 07:20 Blood Blood Culture - Preliminary NO GROWTH AFTER 48 HOURS Constitutional: Present no acute distress, cooperative and somnolent Head: Present atraumatic Eyes: Present as per HPI ENT: Present normal exam Neck: Present normal inspection Respiratory: Present decreased breath sounds, wheezes and symmetric chest movement Cardiac: Present Irregularly Regular and Tachycardia GI: Present soft and normal bowel sounds; Absent distention or tenderness Rectal (male): Present deferred Extremities: Present normal inspection, full ROM and edema Skin: Present intact and pallor Neuro: Present Weakness, awake and oriented x 3 Assessment and Plan *Assessment and plan (1) Hospital-acquired pneumonia: Status: Acute Category: Medical Code(s): J18.9 - Pneumonia, unspecified organism; Y95 - Nosocomial condition (2) Sepsis: Status: Acute Category: Medical Code(s): A41.9 - Sepsis, unspecified organism (3) Acute on chronic heart failure with preserved ejection fraction (HFpEF): Status: Acute Category: Medical Code(s): I50.33 - Acute on chronic diastolic (congestive) heart failure (4) Atrial fibrillation with rapid ventricular response: Status: Acute Category: Medical Code(s): I48.91 - Unspecified atrial fibrillation (5) Physical deconditioning: Status: Acute Category: Medical Code(s): R53.81 - Other malaise (6) BPH (benign prostatic hyperplasia): Status: Acute Category: Medical Code(s): N40.0 - Benign prostatic hyperplasia without lower urinary tract symptoms (7) GERD (gastroesophageal reflux disease): Status: Acute Category: Medical Code(s): K21.9 - Gastro-esophageal reflux disease without esophagitis (8) History of seizures: Status: Acute Category: Medical Code(s): Z87.898 - Personal history of other specified conditions Plan Mr. Fuentes is an 84-year-old male who is admitted to the hospital for HFpEF exacerbation, A-fib RVR, sepsis after recent stay at [facility] for a di agnosis of pneumonia. He came into the emergency department today with weakness, abdominal pain, chest discomfort. He was worked up in the emergency department and found to have fluid overload, bilateral pleural effusions, pericardial effusion, left lower lobe consolidation. After discharge from [facility] he was transition to [facility] for short-term rehabilitation. During examination he has no complaints. He is requiring 2 L O2 to maintain oxygen saturation above 92%. He was found to be 87% on room air in the emergency room. Patient was also found to have a white count of 21.4, electrolyte abnormalities, hyponatremic sodium 131, FREDY BUN 51, creatinine 1.5. BNP elevated at 12,600, hypothyroidism TSH 7.32. After discussion with the emergency room physician, decision was made by myself to admit patient for further management. Pulmonology and cardiology consulted for input. #Acute on chronic HFpEF #Community-acquired pneumonia #Sepsis #Left lower lobe consolidation #Acute hypoxic respiratory failure ? Upon admission patient had bilateral moderate effusions, repeat chest x-ray today continues to show moderate effusions. ?Patient started on cefepime and vancomycin empirically, will monitor for toxicity. Patient notable leukocytosis 21.9 on admission, WBC today 13.2. ?Blood cultures pending. ?Echo results show EF of 70%. After review of hospital records from [facility], shows echo 2 weeks ago 55%. ?Patient given dose of Lasix yesterday in the emergency room, given another dose of Lasix today. Urinary output 720 mL today. ?Repeat CBC, CMP in the AM. #Atrial fibrillation with RVR #FREDY ?Patient was diagnosed with A-fib recently, started on amiodarone and Eliquis. Patient states that he was in normal sinus rhythm prior to this admission. Patient currently in A-fib RVR heart rate 120s. Continuous cardiac telemetry ordered. ? Patient on a 24-hour amiodarone drip per cardiology, increased amiodarone p.o. to 200 mg twice daily. Continuing Eliquis 5 mg twice daily per home medication MAR. ?Discussed with cardiology etiology of patient's pleural effusions, infectious etiology questionable. Continue empiric antibiotics. ?Anasarca noted today. 2+ edema bilateral lower extremities. Lasix IV given today per cards. #Hypothyroidism #history of seizures #GERD #BPH ?Restart home medications per patient's MAR. ?TSH 7.32. Patient currently taking levothyroxine 50 mcg daily. #Physical deconditioning ?PT/OT consulted for further evaluation. ?Patient noted to be very weak, unable to feed himself, speech did a bedside swallow evaluation. ?Patient recommended to have soft mechanical diet and thickened liquids. Full code Cardiac diet Ambulate as tolerated Eliquis for VTE
[2024-10-26 14:18] LABS: Troponin I 0.02 ng/ml (0.00-0.034)
--- NOTE | 2024-10-26 15:03 | HMH.SLDYSPHA ---
Speech & Language Evaluation Speech/Language Dysphagia Evaluation Start: 10/26/24 12:57 Freq: ONCE Status: Active Protocol: Document 10/26/24 12:57 LUCY (Rec: 10/26/24 15:02 [id number] Dysphagia Assess/Goals/Plan Assessment Date of Evaluation: 10/26/24 Evaluation Type Initial Certification Assessment/Problems possible aspiration per MD order Does Patient Qualify Yes for Service Qualify/Failure Based on clinical observations made throughout CSE, pt Comment would benefit from further instrumental assessment of the oropharyngeal phase of the swallow. Recommendations PHYSICIAN CERTIFICATION: The specified therapy services are required, authorized, and reviewed every 30 days. Pt will be seen # 2 times/week for # weeks 4 Diet Recommendations Mechanical Soft Liquid Type [place] Consistency Recommendations SL Swallow Alt bite w/sip thru meal,High aspiration risk,Eat at Guidelines slow rate,Reflux precautions Dysphagia Swallow Sitting Upright (90 deg),Small Bites and Sips,Alternate Precautions/ Liquids/Solids Strategies Plan Pt/Guardian verbally Yes ack understanding of dx/prognosis/ goals G -code Required No STG-Other Comment/Non-Specific Pt will complete MBSS to further assess oropharyngeal phase of the swallow. Pt will demonstrate diet tolerance on downgrade diet per pt, family, nursing report as measured by therapeutic review over 3 sessions. Pt and family will demonstrate understanding of aspiration risks/precautions, as well as implementation of compensatory strategies as measured by therapeutic review over 3 sessions. Group Home Goals Diet [facility]. soft ground with Liquids [place] Thick Pt will be able to Yes eat foods w/more normal consistency Education Instructions Discussed results of CSE, reviewed aspiration risks/ provided precautions, educated on compensatory strategies, discussed various diet options prior to MBSS on Tuesday if pt is agreeable including safest being NPO vs PASSENGER SOLICITOR safest PO diet vs QOL diet with pt and his , nursing, and care management all of which expressed understanding. Pt/Caregiver able to Able to recall/restate recall information Reinforcement needed No Speech & Language HPI History Present Illness Description of Mr. Fuentes is a 84-year-old male with a with a Patient Problem primary history of BPH, GERD, hypothyroidism, dementia, seizures, CHF, hyperlipidemia, A-fib; who presented to the emergency department today from [facility] with complaints of abdominal pain, chest discomfort/tightness, weakness, and increased confusion . Patient was recently admitted at [facility] for [facility], he states his visit there was approximately 10 days. He was then transferred to [facility] for rehabilitation. His workup in the emergency room revealed he was in atrial fibrillation RVR, heart rate 132. Workup showed leukocytosis 21,000 , FREDY creatinine 1.5, initial elevated troponin 0.04, and a BNP of 12,600. Imaging was obtained, CT which was independently interpreted by me showing bilateral pleural groundglass opacities likely bilateral pleural effusions. Patient does have known dementia but appeared to be more confused than normal per his family . He also has a new requirement of 2 L nasal cannula. PMHx: former smoker Pleural effusion, bilateral Hypothyroid Seizure Barretts esophagus Osteoporosis Heart failure Atrial fibrillation CXR reports the following: CLINICAL HISTORY: Pneumonia FINDINGS: There are bibasilar densities and moderate pleural effusions. Parenchymal opacities are identified, likely atelectasis although pneumonia is not excluded. There is no pneumothorax. Mediastinum is unremarkable. Heart size is normal. IMPRESSION: Moderate pleural effusions. Pt/Caregiver Nursing and report coughing during thin liquids, Concerns states coughing during meals began yesterday; states no choking episodes. General Information General Current Food Regular,Thin Liquids Consistancy Oxygen Status Nasal Cannula Patient Orientation Person,Place Ability to Follow Good Directions Voice Voice Quality Breathy,Weak Dysphagia:Food Presentation Evaluation Food Type Pureed,Mechanical Soft,Regular,Liquid,Pudding Normal/Thin Liquid Delayed swallow,Coughing after swallow,Clears throat Response [place] Consistency Coughing after swallow Liquid Response Dysphagia Evaluation Difficulty chewing,Delayed swallow,Coughing after Mechanical Soft swallow Food Behavior Response Dysphagia Evaluation Difficulty chewing,Multiple swallow attempts,Residual Regular Food on tongue,Delayed swallow,Coughing after swallow,Clears Behavior Response throat Dysphagia Evaluation Pt was seen sitting upright in his bed during lunch at Summary this date with his present at the bedside. Pt was A&Ox3. PASSENGER SOLICITOR order was given 2' ongoing reports of coughing with thin liquids and reported that pt has begun coughing during meals as of yesterday. PASSENGER SOLICITOR completed CSE with lunch tray, pudding, pureed applesauce, thin liquids via water and tea, and nectar thick water. During pt and interview, was giving pt tea out of straw and upon subsequent sips of thin liquid tea pt was observed to cough and attempt to clear throat. Cough and throat clear were weak and unproductive. PASSENGER SOLICITOR then trialed a single straw sip of thin liquid water with instruction to complete an effortful swallow, pt demonstrated a delayed cough and O2 sats dropped to 80s, pt then reported he felt it was stuck in his throat and PASSENGER SOLICITOR completed suction. PASSENGER SOLICITOR then trialed nectar thick water via spoon and single straw sip with no overt s/sxs of aspiration noted. However, when instructed to complete subsequent sips from straw pt began coughing and required suction. PASSENGER SOLICITOR then provided trials of pureed applesauce and pudding x3 with no overt s/sxs of aspiration noted. PASSENGER SOLICITOR then completed trials of mechanical soft with vegetables given on tray--pt was observed to have prolonged mastication and delayed swallow. Lastly, PASSENGER SOLICITOR trialed tilapa with tartar sauce; pt demonstrated prolonged mastication of solids and residual observed on tongue as well as coughing and attempts to clear throat after swallow. Towards end of CSE, pt was notably fatigued. PASSENGER SOLICITOR educated pt and of clinical observations made throughout the CSE alongside aspiration risks, aspiration pna, and aspiration precautions, as well as clinical recommendation of completing MBSS and educating on what MBSS entails. Pt and reported they would like to wait and revisit on Tuesday prior to making decision on completing a MBSS. PASSENGER SOLICITOR then educated on safest recommendation being NPO prior to MBSS being completed 2' overt s/sxs of aspiration observed during CSE, as well as educating pt and on two diet options being safest PO and QOL recommendations of mechanical soft ground with NT liquids vs remaining on his typical regular thin diet until MBSS is completed. PASSENGER SOLICITOR answered any and all questions regarding MBSS, modified diet, compensatory strategies, and aspiration risks/precautions with pt and both of which expressed understanding. They decided to pursue modified diet of mechanical soft ground with extra sauces/gravy with meats and NT liquids and plan to revisit MBSS decision on Tuesday. PASSENGER SOLICITOR will f/u for MBSS decision and diet texture analysis/diet tolerance. Stroke Dysphagia Assessment PHYSICIAN CERTIFICATION: I certify the specified therapy services for Christian Fuentes are required, authorized, and reviewed every 30 days.
--- NOTE | 2024-10-26 15:37 | EXP.EVENT.NO ---
Advance care planning note: Christian Fuentes Active diagnosis: Hospital-acquired pneumonia, physical deconditioning, HFpEF, A-fib RVR, bilateral pleural effusions, sepsis, acute hypoxic respiratory failure, FREDY, hyperlipidemia, BPH, GERD, history of seizures The patient's active diagnoses are of sufficient risk that focused discussion on advanced care planning is indicated in order to allow the patient to thoughtfully consider personal goals of care; and, if situations arise that prevent the ability to personally give input, to ensure appropriate representation of their personal desires through documentation or informed surrogate decision makers. Discussion: Discussion with myself, patient, social work, patient's spouse and daughter. About anticipated patient outcomes and goals of care. Patient was hospitalized in May and subsequent rehab for 6 weeks at discharge. He has been in the home with his spouse for approximately 3 months she has been his caregiver. She assist with most if not all aspects of ADLs. She states that he does feed himself at home, but she helps him get dressed, shower, toilet, ambulate with a walker and gait belt. He does have a hospital bed at home that he uses. He was rehospitalized in September at [facility] for 10 days, and to [facility] for rehabilitation before being admitted to the hospital during this stay. Discussed patient's wishes, patient does not contribute, states that they have not had any discussion. Patient's daughter on the phone states that is not a topic they have been willing to discuss in the past. Discussed the need for advance care planning due to patient's physical deconditioning. Patient is not able to complete ADLs at this time. Patient's open to further discussion at a later date about goals of care. Patient's daughter very receptive to conversation, states she will come in tomorrow to have further conversation. Patient currently is in rehab at [facility]. Persons present and participating in discussion: Myself, patient, Samia Colon (social work), patient's spouse, patient's daughter (telephone). Discussion: End-of-life wishes, healthcare surrogate, life expectancy. Time spent: 35 minutes Total time spent [id number] in education and discussion directly related to advance care plannin:50 PM - 1:25 PM Shy Hu APRN 10/26/2024 [id number]
[2024-10-26 17:31] LABS: Troponin I 0.02 ng/ml (0.00-0.034)
--- NOTE | 2024-10-26 18:07 | PC.NURSE ---
Digoxin IVP started @ 1732 Digoxin IVP complete @ 1734. Teley strips recordered prior to IVP, mid IVP and end of IVP and placed on pt's chart. Pt tolerated well.
--- NOTE | 2024-10-26 21:17 | PC.NURSE ---
pt arrived to floor at this time from icu
--- NOTE | 2024-10-26 22:03 | PC.NURSE ---
report given to alex DE LA O at 2109 and PT transferred to med surg at 2116
[2024-10-27] VITALS (9 sets, daily range): BP systolic 94–119; BP diastolic 54–69; PULSE 80–100; RESP 16–18; TEMP 36.6–37; O2SAT 94–100; BMI 33.7
--- NOTE | 2024-10-27 04:58 | PC.NURSE ---
Fresh Ice water given, room trash taken out at 0448
--- NOTE | 2024-10-27 05:48 | PC.NURSE ---
Transferred from ICU. v/s, 2LNC satting in 90's. Pt was forgetful at times, but ox4 when arriving to unit. Urine is still bloody in huang. Seizure precautions in place, pt has hx of seizures. Pt takes meds crushed in applesauce. Pt has +2 pitting edema bilaterally to lower extremities. Plan of care ongoing.
[2024-10-27] MEDS: PANTOPRAZOLE 40MG TABLET 40 MG PO (06:44)
[2024-10-27] MEDS: LEVOTHYROXINE 50MCG (0.05MG) TAB 50 MCG PO (06:44)
[2024-10-27 07:45] LABS: Basophils % 0.2 % (0.1-2.0); Eosinophils % 0.1 % (0.1-12.0); Hematocrit 32.1 % (42.0-52.0); Hemoglobin 10.7 g/dL (14.1-18.0); Immature Granulocytes # 0.06 10^3uL; Immature Granulocytes % 0.5 %; Lymphocytes # 0.8 K/mm3 (0.7-4.5); Lymphocytes % 6.9 % (10-50); Mean Corpuscular HGB Conc 33.3 g/dL (31.8-35.4); Mean Corpuscular Hemoglobin 30.9 pg (27.0-31.2); Mean Corpuscular Volume 92.8 fl (80-94); Monocytes # 1.1 K/mm3 (0.1-1.0); Monocytes % 9.3 % (1.7-9.3); Neutrophils # 9.3 K/mm3 (1.8-7.8); Nucleated Red Blood Cells # 0 10^3/uL; Nucleated Red Blood Cells % 0 %; Platelet Count 149 K/mm3 (142-424); Red Blood Count 3.46 M/mm3 (4.60-6.20); Red Cell Distribution Width-SD 54.1 fL; White Blood Count 11.3 K/mm3 (4.8-10.8)
[2024-10-27 08:06] LABS: Albumin Level 2.6 g/dl (3.5-5.0); Chloride 98 mmol/L (98-107); Sodium 131 mmol/L (136-145)
[2024-10-27 08:09] LABS: Alanine Aminotransferase 53 U/L (12-78); Albumin/Globulin Ratio 0.8 (1.1-1.8); Alkaline Phosphatase 84 U/L (38-126); Aspartate Amino Transferase 84 U/L (17-59); Bilirubin,Total 0.5 mg/dl (0.2-1.3); Blood Urea Nitrogen 52 mg/dl (9-20); Calcium 7.5 mg/dl (8.4-10.2); Carbon Dioxide 22 mmol/L (22.0-30.0); Creatinine Clearance Estimated 52 mL/min (50-200); Estimated Glomerular Filt Rate 45 ml/min (>60); GFR (African American) 54 ML/MIN (>60); Globulin 3.2 g/dL (1.3-3.2); Glucose 88 mg/dl (74-100); Total Protein,Serum 5.8 g/dl (6.3-8.2)
[2024-10-27 08:10] LABS: Magnesium 2.5 mg/dl (1.6-2.3)
--- NOTE | 2024-10-27 08:16 | P.PN_ITS ---
Subjective *Date: 10/27/24 *Time: 08:16 Medical Exam Vital signs and Labs for Last 24 Hours: Vital Signs Temp Pulse Pulse Resp BP Pulse Ox O2 Del Method 10/27/24 06:23 Nasal Cannula 10/27/24 06:00 98.6 F 90 18 113/67 100 Nasal Cannula 10/27/24 05:00 Nasal Cannula 10/27/24 04:00 100 H 10/27/24 03:00 Nasal Cannula 10/27/24 01:00 Nasal Cannula 10/27/24 00:00 93 H 10/26/24 23:00 Nasal Cannula 10/26/24 22:23 95 Nasal Cannula 10/26/24 22:21 100 H 10/26/24 22:21 98 H 10/26/24 21:00 Nasal Cannula 10/26/24 20:00 94 L Nasal Cannula 10/26/24 20:00 97.7 F 68 22 112/57 L 95 Nasal Cannula 10/26/24 19:00 Nasal Cannula 10/26/24 18:00 97 H 22 101/62 L 94 L Nasal Cannula 10/26/24 17:30 90 10/26/24 17:28 97 H 10/26/24 17:00 91 H 18 99/69 L 93 L Nasal Cannula 10/26/24 17:00 Nasal Cannula 10/26/24 16:00 98.8 F 10/26/24 16:00 98 H 15 117/68 95 Nasal Cannula 10/26/24 15:00 Nasal Cannula 10/26/24 14:00 100 H 16 95 Nasal Cannula 10/26/24 13:00 107 H 23 122/71 93 L Nasal Cannula 10/26/24 13:00 Nasal Cannula 10/26/24 12:57 Nasal Cannula 10/26/24 12:00 104 H 10/26/24 12:00 97.6 F 99 H 22 104/66 L 93 L Nasal Cannula 10/26/24 11:15 100 H 10/26/24 11:15 102 H 10/26/24 11:15 95 Nasal Cannula 10/26/24 11:00 100 H 21 98/67 L 95 Nasal Cannula 10/26/24 11:00 Nasal Cannula 10/26/24 10:47 94 H 10/26/24 10:01 95 H 21 103/70 L 93 L Nasal Cannula 10/26/24 09:00 97 H 16 109/47 L 96 Nasal Cannula 10/26/24 08:43 Nasal Cannula O2 Flow Rate 10/27/24 06:23 2 10/27/24 06:00 2 10/27/24 05:00 2 10/27/24 04:00 10/27/24 03:00 2 10/27/24 01:00 2 10/27/24 00:00 10/26/24 23:00 2 10/26/24 22:23 3 10/26/24 22:21 10/26/24 22:21 10/26/24 21:00 2 10/26/24 20:00 2 10/26/24 20:00 2 10/26/24 19:00 2 10/26/24 18:00 2 10/26/24 17:30 10/26/24 17:28 10/26/24 17:00 2 10/26/24 17:00 2 10/26/24 16:00 10/26/24 16:00 2 10/26/24 15:00 2 10/26/24 14:00 2 10/26/24 13:00 2 10/26/24 13:00 2 10/26/24 12:57 10/26/24 12:00 10/26/24 12:00 3 10/26/24 11:15 10/26/24 11:15 10/26/24 11:15 2 10/26/24 11:00 3 10/26/24 11:00 2 10/26/24 10:47 10/26/24 10:01 3 10/26/24 09:00 3 10/26/24 08:43 3 Intake and Output 10/26/24 10/27/24 10/27/24 23:59 07:59 15:59 Intake Total 103 / 587.371 0 / 0 Output Total 225 / 1825 950 / 950 Balance -122 / -1237.629 -950 / -950 Intake: Intake, Oral Amount 0 / 0 Intake, Total IV Amount 103 / 203 Amiodarone HCl 900 mg In 103 / 103 Dextrose 5 % in Water 500 ml @ 0.5 MG/MIN 17.267 mls/hr IV . Q24H [facility] Rx#:[id number] Output: Output, Urine Amount 225 / 1325 950 / 950 Other: Number of Unmeasured Voids 0 0 Number of Bowel Movements 1 Weight 97.477 kg Patient Weight 10/27/24 23:59 Weight 97.477 kg Laboratory Results - last 24 hr 10/26/24 13:50: Troponin I 0.02 10/26/24 16:54: Troponin I 0.02 10/27/24 07:35: WBC 11.3 H, RBC 3.46 L, Hgb 10.7 L, Hct 32.1 L, MCV 92.8, MCH 30.9, MCHC 33.3, RDW 16.0, Plt Count 149, MPV 11.0 H, Neut % (Auto) 83.0 H, Lymph % (Auto) 6.9 L, [place] % (Auto) 9.3, Eos % (Auto) 0.1, Baso % (Auto) 0.2, N eut # (Auto) 9.3 H, Lymph # (Auto) 0.8, [place] # (Auto) 1.1 H, Eos # (Auto) 0.0, Baso # (Auto) 0.0 I & O for Labs for Last 24 Hours: Intake & Output 10/24/24 10/25/24 10/26/24 10/27/24 23:59 23:59 23:59 23:59 Intake Total 940 / 940 734 / 834 587.371 / 587.371 0 / 0 Output Total 1625 / 1725 960 / 960 1275 / 1825 950 / 950 Balance -685 / -785 -226 / -126 -687.629 / -1237.629 -950 / -950 Weight 92.533 kg 93.38 kg 94.38 kg 97.477 kg Microbiology Reports for the Last 24 Hours: Microbiology 10/24/24 07:37 Blood Blood Culture - Preliminary NO GROWTH AFTER 48 HOURS 10/24/24 07:20 Blood Blood Culture - Preliminary NO GROWTH AFTER 48 HOURS The patient's infection will respond to the chosen ABx?: Yes (BLOOD CX NO GROWTH AT 48 HR, SPUTUM UNCOLLECTED, AFEBRILE OVER 24 HR) Is the patient receiving the right drug, dose, and route?: Yes Could a more targeted ABx be ordered?: No How long ABx needed (days)?: 7 (PNEUMONIA)
[2024-10-27 08:17] LABS: Anion Gap 14.1 mEq/L (5-15)
[2024-10-27 08:18] LABS: Potassium 3.1 mmoL/L (3.5-5.1)
[2024-10-27] MEDS: AMIODARONE 200MG TABLET 200 MG PO ×2 (09:38→21:32)
[2024-10-27] MEDS: levETIRAcetam 500 MG TABLET 1000 MG PO ×2 (09:38→21:32)
[2024-10-27] MEDS: FINASTERIDE 5MG TABLET 5 MG PO (09:38)
[2024-10-27] MEDS: DIGOXIN 0.125MG TABLET 125 MCG PO (09:39)
[2024-10-27] MEDS: ASPIRIN 81MG CHEWABLE TABLET 81 MG PO (09:39)
[2024-10-27] MEDS: TAMSULOSIN 0.4MG CAPSULE 0.4 MG PO (09:39)
[2024-10-27] MEDS: APIXABAN 5MG TABLET 5 MG PO ×2 (09:39→21:32)
[2024-10-27] MEDS: DIVALPROEX 250MG (EXTENDED-RELEASE) TABLET 1000 MG PO (09:39)
[2024-10-27] MEDS: NYSTATIN TOPICAL POWDER 30GM TP ×2 (09:40→21:32)
[2024-10-27 09:49] LABS: Vancomycin,Trough 12.7 ug/mL (5.0-10.0)
--- NOTE | 2024-10-27 10:39 | EXP.PHA.CONS ---
Pharmacy Consult Date: 10/27/24 Time: 10:39 Referring provider: DR [email or web address] Reason for Consult:: VANCOMYCIN TROUGH LEVEL OBTAINED Allergies Allergy/AdvReac Type Severity Reaction Status Date / Time amoxicillin (From Augmentin) Allergy Rash Verified 10/24/24 12:21 clavulanic acid (From Allergy Rash Verified 10/24/24 12:21 Augmentin) Penicillins Allergy Rash Verified 10/24/24 09:18 Home Medications ?Medication ?Instructions ?Recorded ?Confirmed ?Type Lactobacillus acidophilus 10 10,000 mmu cells PO DAILY 10/24/24 10/24/24 History billion cell capsule acetaminophen 325 mg tablet 650 mg PO Q4HP PRN Mild Pain 10/24/24 10/24/24 History (Scale Score 1-4) amiodarone 200 mg tablet 200 mg PO DAILY 10/24/24 10/24/24 History apixaban 5 mg tablet 5 mg PO BID 10/24/24 10/24/24 History aspirin 81 mg chewable tablet 81 mg PO DAILY 10/24/24 10/24/24 History atorvastatin 40 mg tablet 40 mg PO DAILY 10/24/24 10/24/24 History calcium carbonate 200 mg PO DAILY 10/24/24 10/24/24 History cholecalciferol (vitamin D3) 50 50 mcg PO Q48H 10/24/24 10/24/24 History mcg (2,000 unit) tablet cyanocobalamin (vitamin B-12) 1,000 mcg PO DAILY 10/24/24 10/24/24 History 1,000 mcg tablet divalproex 500 mg tablet,extended 1,000 mg PO BID 10/24/24 10/24/24 History release 24 hr finasteride 5 mg tablet 5 mg PO DAILY 10/24/24 10/24/24 History fluticasone propionate 50 1 spray intranasal DAILYP PRN 10/24/24 10/24/24 History mcg/actuation nasal Allergy Symptoms spray,suspension furosemide 40 mg tablet 40 mg PO MOWEFR 10/24/24 10/24/24 History ipratropium 0.5 mg-albuterol 3 mg 3 ml inhalation QID 10/24/24 10/24/24 History (2.5 mg base)/3 mL nebulization soln levetiracetam 1,000 mg tablet 1,000 mg PO BID 10/24/24 10/24/24 History levothyroxine 50 mcg tablet 50 mcg PO DAILY 10/24/24 10/24/24 History (Synthroid) midodrine 10 mg tablet 10 mg PO TID 10/24/24 10/24/24 History multivitamin 1 tab PO DAILY 10/24/24 10/24/24 History nystatin 100,000 unit/gram topical 1 applic topical BID 10/24/24 10/24/24 History powder pantoprazole 40 mg tablet,delayed 40 mg PO DAILY 10/24/24 10/24/24 History release tamsulosin 0.4 mg capsule 0.4 mg PO DAILY 10/24/24 10/24/24 History New Prescriptions to Start Prescriptions: Height: 1.7 m Weight: 97.477 kg Laboratory Results:: Laboratory Results - last 24 hr 10/26/24 13:50: Troponin I 0.02 10/26/24 16:54: Troponin I 0.02 10/27/24 07:35: WBC 11.3 H, RBC 3.46 L, Hgb 10.7 L, Hct 32.1 L, MCV 92.8, MCH 30.9, MCHC 33.3, RDW 16.0, Plt Count 149, MPV 11.0 H, Neut % (Auto) 83.0 H, Lymph % (Auto) 6.9 L, [place] % (Auto) 9.3, Eos % (Auto) 0.1, Baso % (Auto) 0.2, Neut # (Auto) 9.3 H, Lymph # (Auto) 0.8, [place] # (Auto) 1.1 H, Eos # (Auto) 0.0, Baso # (Auto) 0.0, Sodium 131 L, Potassium 3.1 L, Chloride 98, Carbon Dioxide 22, Anion Gap 14.1, BUN 52 H, Creatinine 1.50 H, Estimated Creat Clear 52, Estimated GFR 45 L, Est GFR ( Amer) 54 L, Glucose 88, Calcium 7.5 L, Magnesium 2.5 H, Total Bilirubin 0.5, AST 84 H, ALT 53, Alkaline Phosphatase 84, Total Protein 5.8 L, Albumin 2.6 L D, Globulin 3.2, Albumin/Globulin Ratio 0.8 L 10/27/24 08:00: Vancomycin Trough 12.7 H Medical History: Medical History (Updated 10/25/24 @ 14:46 by Shy Hu APRN) Pleural effusion, bilateral Hypothyroid Seizure Barretts esophagus Osteoporosis Heart failure Atrial fibrillation Assessment and Plan Assessment and plan all Dx Assessment and Plan for all problems:: VANCOMYICN TROUGH LEVEL: 12.7 MCG/ML (10/27/24 08:00) RECOMMEND CONTINUING CURRENT VANCOMYCIN DOSE OF 1750 MG Q36H.
[2024-10-27] MEDS: POTASSIUM CHLORIDE 20MEQ TAB 40 MEQ PO ×2 (12:38→17:34)
[2024-10-27] MEDS: CEFEPIME HCL 2 GM in 0.9 % SODIUM CHLORIDE 100 ML IV ×2 (12:38)
[2024-10-27] MEDS: VANCOMYCIN/WATER FOR INJ (PEG) 1.75 GM/350 ML PIGGYBACK IV (12:38)
[2024-10-27 14:06] LABS: Vancomycin,Peak 23.8 ug/ml (11-39)
--- NOTE | 2024-10-27 15:03 | PC.NURSE ---
Aox 3 with confusion noted at times, turn every two hours, total assist, meds crushed in applesauce, now a DNR and hospice consulted, f/c in place.
--- NOTE | 2024-10-27 15:15 | EXP.ACUTE.PN ---
Subjective *Date: 10/27/24 *Time: 18:19 Interval history: Patient responded to exam this morning. States he felt very fatigued. Not eating very well today. Stable on 2 L oxygen. No nausea or vomiting. Has been having bowel movements. Extensive goals of care discussion with family today. Medical Exam Vital signs and Labs for Last 24 Hours: Vital Signs Temp Pulse Pulse Resp BP BP Pulse Ox 10/27/24 14:31 10/27/24 12:06 10/27/24 12:00 97.9 F 92 H 16 94/54 L 94 L 10/27/24 10:44 10/27/24 09:39 95 H 10/27/24 09:00 10/27/24 08:00 98.3 F 95 H 18 119/69 97 10/27/24 08:00 98.3 F 95 H 18 119/69 97 10/27/24 08:00 10/27/24 06:23 10/27/24 06:00 98.6 F 90 18 113/67 100 10/27/24 05:00 10/27/24 04:00 100 H 10/27/24 03:00 10/27/24 01:00 10/27/24 00:00 93 H 10/26/24 23:00 10/26/24 22:23 95 10/26/24 22:21 100 H 10/26/24 22:21 98 H 10/26/24 21:00 10/26/24 20:00 94 L 10/26/24 20:00 97.7 F 68 22 112/57 L 95 10/26/24 19:00 10/26/24 18:00 97 H 22 101/62 L 94 L 10/26/24 17:30 90 10/26/24 17:28 97 H 10/26/24 17:00 91 H 18 99/69 L 93 L 10/26/24 17:00 10/26/24 16:00 98.8 F 10/26/24 16:00 98 H 15 117/68 95 O2 Del Method O2 Flow Rate 10/27/24 14:31 Nasal Cannula 2 10/27/24 12:06 Nasal Cannula 2 10/27/24 12:00 Nasal Cannula 10/27/24 10:44 Nasal Cannula 2 10/27/24 09:39 10/27/24 09:00 Nasal Cannula 2 10/27/24 08:00 Nasal Cannula 3 10/27/24 08:00 Nasal Cannula 3 10/27/24 08:00 Nasal Cannula 2 10/27/24 06:23 Nasal Cannula 2 10/27/24 06:00 Nasal Cannula 2 10/27/24 05:00 Nasal Cannula 2 10/27/24 04:00 10/27/24 03:00 Nasal Cannula 2 10/27/24 01:00 Nasal Cannula 2 10/27/24 00:00 10/26/24 23:00 Nasal Cannula 2 10/26/24 22:23 Nasal Cannula 3 10/26/24 22:21 10/26/24 22:21 10/26/24 21:00 Nasal Cannula 2 10/26/24 20:00 Nasal Cannula 2 10/26/24 20:00 Nasal Cannula 2 10/26/24 19:00 Nasal Cannula 2 10/26/24 18:00 Nasal Cannula 2 10/26/24 17:30 10/26/24 17:28 10/26/24 17:00 Nasal Cannula 2 10/26/24 17:00 Nasal Cannula 2 10/26/24 16:00 10/26/24 16:00 Nasal Cannula 2 Intake and Output 10/26/24 10/27/24 10/27/24 23:59 07:59 15:59 Intake Total 103 / 587.371 0 / 450 450 / 450 Output Total 225 / 1825 950 / 950 0 / 950 Balance -122 / -1237.629 -950 / -500 450 / -500 Intake: Intake, Oral Amount 0 / 0 0 / 0 Intake, Total IV Amount 103 / 203 450 / 450 Amiodarone HCl 900 mg In 103 / 103 Dextrose 5 % in Water 500 ml @ 0.5 MG/MIN 17.267 mls/hr IV . Q24H [facility] Rx#:[id number] Cefepime HCl 2 gm In 0.9 % 100 / 100 Sodium Chloride 100 ml @ 200 mls/hr IV Q12H [facility] Rx#:[id number] Vancomycin/Water For Inj (Peg) 350 / 350 1.75 gm In 350 ml @ 175 mls/hr IV Q36H [facility] Rx#:[id number] Output: Output, Urine Amount 225 / 1325 950 / 950 0 / 950 Other: Number of Unmeasured Voids 0 0 0 Number of Bowel Movements 1 1 Weight 97.477 kg 97.477 kg Patient Weight 10/27/24 23:59 Weight 97.477 kg Laboratory Results - last 24 hr 10/26/24 16:54: Troponin I 0.02 10/27/24 07:35: WBC 11.3 H, RBC 3.46 L, Hgb 10.7 L, Hct 32.1 L, MCV 92.8, MCH 30.9, MCHC 33.3, RDW 16.0, Plt Count 149, MPV 11.0 H, Neut % (Auto) 83.0 H, Lymph % (Auto) 6.9 L, [place] % (Auto) 9.3, Eos % (Auto) 0.1, Baso % (Auto) 0.2, Neut # (Auto) 9.3 H, Lymph # (Auto) 0.8, [place] # (Auto) 1.1 H, Eos # (Auto) 0.0, Baso # (Auto) 0.0, Sodium 131 L, Potassium 3.1 L, Chloride 98, Carbon Dioxide 22, Anion Gap 14.1, BUN 52 H, Creatinine 1.50 H, Estimated Creat Clear 52, Estimated GFR 45 L, Est GFR ( Amer) 54 L, Glucose 88, Calcium 7.5 L, Magnesium 2.5 H, Total Bilirubin 0.5, AST 84 H, ALT 53, Alkaline Phosphatase 84, Total Protein 5.8 L, Albumin 2.6 L D, Globulin 3.2, Albumin/Globulin Ratio 0.8 L 10/27/24 08:00: Vancomycin Trough 12.7 H 10/27/24 13:35: Vancomycin Peak 23.8 I & O for Labs for Last 24 Hours: Intake & Output 10/24/24 10/25/24 10/26/24 10/27/24 23:59 23:59 23:59 23:59 Intake Total 940 / 940 734 / 834 587.371 / 587.371 450 / 450 Output Total 1625 / 1725 960 / 960 1275 / 1825 950 / 950 Balance -685 / -785 -226 / -126 -687.629 / -1237.629 -500 / -500 Weight 92.533 kg 93.38 kg 94.38 kg 97.477 kg Constitutional: Present mild distress, chronically ill appearing, cooperative and somnolent Head: Present atraumatic Eyes: Present as per HPI ENT: Present normal exam Neck: Present normal inspection Respiratory: Present decreased breath sounds, crackles and symmetric chest movement; Absent wheezes Cardiac: Present Regular Rate and Irregularly Regular GI: Present soft and normal bowel sounds; Absent distention or tenderness Rectal (male): Present deferred Extremities: Present normal inspection, full ROM and edema (1+ in arms and leg) Skin: Present intact and pallor Neuro: Present Weakness, alert and awake Comment:: Oriented to self and place. Globally weak Assessment and Plan *Assessment and plan (1) Hospital-acquired pneumonia: Status: Acute Category: Medical Code(s): J18.9 - Pneumonia, unspecified organism; Y95 - Nosocomial condition (2) Sepsis: Status: Acute Category: Medical Code(s): A41.9 - Sepsis, unspecified organism (3) Acute on chronic heart failure with preserved ejection fraction (HFpEF): Status: Acute Category: Medical Code(s): I50.33 - Acute on chronic diastolic (congestive) heart failure (4) Atrial fibrillation with rapid ventricular response: Status: Acute Category: Medical Code(s): I48.91 - Unspecified atrial fibrillation (5) Physical deconditioning: Status: Acute Category: Medical Code(s): R53.81 - Other malaise (6) BPH (benign prostatic hyperplasia): Status: Acute Category: Medical Code(s): N40.0 - Benign prostatic hyperplasia without lower urinary tract symptoms (7) GERD (gastroesophageal reflux disease): Status: Acute Category: Medical Code(s): K21.9 - Gastro-esophageal reflux disease without esophagitis (8) History of seizures: Status: Acute Category: Medical Code(s): Z87.898 - Personal history of other specified conditions (9) Protein calorie malnutrition: Status: Acute Category: Medical Code(s): E46 - Unspecified protein-calorie malnutrition (10) Failure to thrive: Status: Acute Category: Medical Plan Mr. Fuentes is an 84-year-old male who is admitted to the hospital for HFpEF exacerbation, A-fib RVR, sepsis after recent stay at [facility] for a diagnosis of pneumonia. He came into the emergency department today with weakness, abdominal pain, chest discomfort. He was worked up in the emergency department and found to have fluid overload, bilateral pleural effusions, pericardial effusion, left lower lobe consolidation. After discharge from [facility] he was transition to [facility] for short-term rehabilitation. During examination he has no complaints. He is requiring 2 L O2 to maintain oxygen saturation above 92%. He was found to be 87% on room air in the emergency room. Patient was also found to have a white count of 21.4, electrolyte abnormalities, hyponatremic sodium 131, FREDY BUN 51, creatinine 1.5. BNP elevated at 12,600, hypothyroidism TSH 7.32. After discussion with the emergency room physician, decision was made by myself to admit patient for further management. Pulmonology and cardiology consulted to assist with patient. Goals of care discussion with family at bedside today. Continues to be globally weak. White count remains within normal range at 11, continuing to improve. Prognosis guarded, condition serious. Problems addressed as follows: #Acute on chronic HFpEF #Community-acquired pneumonia #Sepsis #Left lower lobe consolidation #Acute hypoxic respiratory failure ? Upon admission patient had bilateral moderate effusions, repeat chest x-ray today continues to show moderate effusions. ?Patient started on cefepime and vancomycin empirically, will monitor for toxicity. White count elevated 21.9 on admission. Improved to 11.3 today. Hemoglobin 10.7. - Blood cultures remain negative. - Repeat CBC, CMP, magnesium ordered for the morning ?Echo results show EF of 70%. After review of hospital records from [facility], shows echo 2 weeks ago 55%. --2 L since admission. - Stable on 2 L nasal cannula oxygen, continue to wean as tolerated. Goal sats greater 90%. - Kidney function remains slightly abnormal with BUN 52, creatinine 1.5. Potassium 3.1, magnesium 2.5 #Atrial fibrillation with RVR #FREDY ?Patient was diagnosed with A-fib recently, started on amiodarone and Eliquis. Patient states that he was in normal sinus rhythm prior to this admission. Patient currently in A-fib RVR heart rate 120s. Continuous cardiac telemetry ordered. ? Tolerating 200 mg amiodarone twice daily, cardiology recommended initiating digoxin 125 mcg daily. Rate better controlled today in the 90s. Continuing Eliquis 5 mg twice daily per home medication JUN. -Received 1 dose of Lasix yesterday, due to soft pressures we will hold today. - Patient had an episode of chest pain yesterday, troponins were nonactionable at less than 0.02. EKG did not show any ST elevations. #Hypothyroidism #history of seizures #GERD #BPH ??TSH 7.32. Patient currently taking levothyroxine 50 mcg daily. - Continue Keppra 1 g twice daily, hold divalproex due to patient's condition and somnolence. Valproic acid level pending in the morning #Physical deconditioning Protein calorie malnutrition ?PT/OT consulted for further evaluation. Recommended placement. Speech assisting with care as well. Modified barium ordered for Tuesday. Patient on modified diet with nectar thick liquids. -Discussed goals of care today at bedside, family would like to have hospice at least evaluate send if patient's condition deteriorates in the coming weeks and he does not respond to therapy, they would like to consider transitioning to hospice if not improving. - Albumin decreasing. Down to 2.6 today. Consistent with protein calorie malnutrition DNR/DNI Cardiac diet [place]
--- NOTE | 2024-10-27 15:15 | EXP.EVENT.NO ---
Advance care planning note: Active diagnosis: Failure to thrive, protein calorie malnutrition, HFpEF, recurrent pneumonia, recurrent hospitalizations, anasarca, hypothyroid, seizure disorder, BPH The patient's active diagnoses are of sufficient risk that focused discussion on advanced care planning is indicated in order to allow the patient to thoughtfully consider personal goals of care; and, if situations arise that prevent the ability to personally give input, to ensure appropriate representation of their personal desires through documentation or informed surrogate decision makers. Discussion: Persons present and participating in discussion: , patient, son, daughter Discussion: Extensive discussion about patient's progressive decline over the past 6 to 8 months. Discussed his recurrent hospitalizations and the toll they have taken on his functionality. Discussed his support needed prior to his last hospitalization and the chances of recovery. Discussed his current condition with poor p.o. intake, patient's motivation to attempt therapy, and risk for further decompensation. Discussed if patient's condition worsened if family would like to consider hospice. Will consult hospice to at least evaluate to provide resources for informed decision making. CODE STATUS changed to DNR/DNI today. Time spent: Total time spent [id number] in education and discussion directly related to advance care plannin minutes Rowdy Almaraz 1:40-2:00 10/27/2024
[2024-10-27] MEDS: ACETAMINOPHEN 325MG TAB 650 MG PO (17:34)
[2024-10-28] VITALS: BP 94/57; PULSE 87; PULSE 90; RESP 12; TEMP 36.6; O2SAT 96
[2024-10-28] MEDS: CEFEPIME HCL 2 GM in 0.9 % SODIUM CHLORIDE 100 ML IV ×2 (00:52→11:58)
[2024-10-28 04:00] VITALS: BP 110/60; PULSE 71; PULSE 90; RESP 14; TEMP 36.8; O2SAT 96; BMI 34.5
--- NOTE | 2024-10-28 04:43 | PC.NURSE ---
v/s, ox4, but forgetful though out the night. Pt on 2LNC satting in 90's. Hospice to follow pt when discharging. No acute events to report. Plan of care ongoing.
--- NOTE | 2024-10-28 05:47 | PC.NURSE ---
Pt has recieved ice water and bedside tablehas been cleaned off.
[2024-10-28] MEDS: LEVOTHYROXINE 50MCG (0.05MG) TAB 50 MCG PO (06:11)
[2024-10-28] MEDS: PANTOPRAZOLE 40MG TABLET 40 MG PO (06:11)
[2024-10-28 07:58] LABS: Basophils % 0.3 % (0.1-2.0); Eosinophils # 0.1 Kmm3 (0.0-0.4); Eosinophils % 0.6 % (0.1-12.0); Hematocrit 33.2 % (42.0-52.0); Immature Granulocytes # 0.07 10^3uL; Immature Granulocytes % 0.7 %; Lymphocytes # 0.9 K/mm3 (0.7-4.5); Lymphocytes % 8.9 % (10-50); Mean Corpuscular HGB Conc 33.1 g/dL (31.8-35.4); Mean Corpuscular Hemoglobin 30.9 pg (27.0-31.2); Mean Corpuscular Volume 93.3 fl (80-94); Mean Platelet Volume 11.3 fl (7.4-10.4); Monocytes # 1.1 K/mm3 (0.1-1.0); Monocytes % 10.8 % (1.7-9.3); Neutrophils # 8.1 K/mm3 (1.8-7.8); Neutrophils % 78.7 % (37.0-80.0); Nucleated Red Blood Cells # 0 10^3/uL; Nucleated Red Blood Cells % 0 %; Platelet Count 161 K/mm3 (142-424); Red Blood Count 3.56 M/mm3 (4.60-6.20); Red Cell Distribution Width 16.1 % (11.5-17.5); Red Cell Distribution Width-SD 55.6 fL; White Blood Count 10.2 K/mm3 (4.8-10.8)
[2024-10-28 08:14] LABS: Alanine Aminotransferase 58 U/L (12-78); Albumin Level 2.5 g/dl (3.5-5.0); Albumin/Globulin Ratio 0.8 (1.1-1.8); Alkaline Phosphatase 78 U/L (38-126); Anion Gap 10.3 mEq/L (5-15); Aspartate Amino Transferase 87 U/L (17-59); Bilirubin,Total 0.7 mg/dl (0.2-1.3); Blood Urea Nitrogen 52 mg/dl (9-20); Calcium 8.2 mg/dl (8.4-10.2); Carbon Dioxide 23 mmol/L (22.0-30.0); Chloride 101 mmol/L (98-107); Creatinine Clearance Estimated 54 mL/min (50-200); Estimated Glomerular Filt Rate 45 ml/min (>60); GFR (African American) 54 ML/MIN (>60); Globulin 3.3 g/dL (1.3-3.2); Glucose 93 mg/dl (74-100); Magnesium 2.6 mg/dl (1.6-2.3); Phosphorous 2.4 mg/dl (2.5-4.5); Potassium 3.3 mmoL/L (3.5-5.1); Sodium 131 mmol/L (136-145); Total Protein,Serum 5.8 g/dl (6.3-8.2)
[2024-10-28 08:22] LABS: NT Pro Brain Natriuretic Pep. 7720 pg/mL (0-450)
--- NOTE | 2024-10-28 08:45 | EXP.PHA.PN ---
Subjective *Date: 10/28/24 *Time: 08:45 Medical Exam Vital signs and Labs for Last 24 Hours: Vital Signs Temp Pulse Pulse Resp BP Pulse Ox O2 Del Method 10/28/24 06:25 Nasal Cannula 10/28/24 04:35 Nasal Cannula 10/28/24 04:00 98.2 F 71 14 110/60 96 Room Air 10/28/24 04:00 90 10/28/24 03:00 Nasal Cannula 10/28/24 00:48 Nasal Cannula 10/28/24 00:00 90 10/28/24 00:00 97.9 F 87 12 94/57 L 96 Room Air 10/27/24 23:00 Nasal Cannula 10/27/24 21:00 Nasal Cannula 10/27/24 20:00 80 10/27/24 20:00 Nasal Cannula 10/27/24 19:50 97.8 F 91 H 16 100/63 L 94 L Room Air 10/27/24 18:51 Nasal Cannula 10/27/24 18:20 Nasal Cannula 10/27/24 16:59 Nasal Cannula 10/27/24 16:00 97.9 F 88 18 106/60 L 96 Nasal Cannula 10/27/24 16:00 100 H 10/27/24 14:31 Nasal Cannula 10/27/24 12:06 Nasal Cannula 10/27/24 12:00 90 10/27/24 12:00 97.9 F 92 H 16 94/54 L 94 L Nasal Cannula 10/27/24 10:44 Nasal Cannula 10/27/24 09:39 95 H 10/27/24 09:00 Nasal Cannula O2 Flow Rate FiO2 10/28/24 06:25 2 10/28/24 04:35 2 10/28/24 04:00 10/28/24 04:00 10/28/24 03:00 2 10/28/24 00:48 2 10/28/24 00:00 10/28/24 00:00 10/27/24 23:00 10/27/24 21:00 2 10/27/24 20:00 10/27/24 20:00 2 10/27/24 19:50 10/27/24 18:51 2 28 10/27/24 18:20 2 10/27/24 16:59 2 10/27/24 16:00 10/27/24 16:00 10/27/24 14:31 2 10/27/24 12:06 2 10/27/24 12:00 10/27/24 12:00 10/27/24 10:44 2 10/27/24 09:39 10/27/24 09:00 2 Intake and Output 10/27/24 10/28/24 10/28/24 23:59 07:59 15:59 Intake Total 200 / 650 Output Total 850 / 1800 245 / 245 Balance -650 / -1150 -245 / -245 Intake: Intake, Oral Amount 200 / 200 Output: Output, Urine Amount 850 / 1800 245 / 245 Other: Number of Unmeasured Voids 0 0 Weight 99.875 kg Patient Weight 10/28/24 23:59 Weight 99.875 kg Laboratory Results - last 24 hr 10/27/24 08:00: Vancomycin Trough 12.7 H 10/27/24 13:35: Vancomycin Peak 23.8 10/28/24 07:25: WBC 10.2, RBC 3.56 L, Hgb 11.0 L, Hct 33.2 L, MCV 93.3, MCH 30.9, MCHC 33.1, RDW 16.1, Plt Count 161, MPV 11.3 H, Neut % (Auto) 78.7, Lymph % (Auto) 8.9 L, [place] % (Auto) 10.8 H, Eos % (Auto) 0.6, Baso % (Auto) 0.3, Neut # (Auto) 8.1 H, Lymph # (Auto) 0.9, [place] # (Auto) 1.1 H, Eos # (Auto) 0.1, Baso # (Auto) 0.0, Sodium 131 L, Potassium 3.3 L, Chloride 101, Carbon Dioxide 23, Anion Gap 10.3, BUN 52 H, Creatinine 1.50 H, Estimated Creat Clear 54, Estimated GFR 45 L, Est GFR ( Amer) 54 L, Glucose 93, Calcium 8.2 L, Phosphorus 2.4 L, Magnesium 2.6 H, Total Bilirubin 0.7, AST 87 H, ALT 58, Alkaline Phosphatase 78, NT-Pro-B Natriuret Pep 7720 H, Total Protein 5.8 L, Albumin 2.5 L, Globulin 3.3 H, Albumin/Globulin Ratio 0.8 L I & O for Labs for Last 24 Hours: Intake & Output 10/25/24 10/26/24 10/27/24 10/28/24 23:59 23:59 23:59 23:59 Intake Total 734 / 834 587.371 / 587.371 650 / 650 Output Total 960 / 960 1275 / 1825 1800 / 1800 245 / 245 Balance -226 / -126 -687.629 / -1237.629 -1150 / -1150 -245 / -245 Weight 93.38 kg 94.38 kg 97.477 kg 99.875 kg Microbiology Reports for the Last 24 Hours: Microbiology 10/24/24 07:37 Blood Blood Culture - Preliminary NO GROWTH AFTER 4 DAYS 10/24/24 07:20 Blood Blood Culture - Preliminary NO GROWTH AFTER 4 DAYS The patient's infection will respond to the chosen ABx?: Yes (BLOOD CX NO GROWTH AT 4 DAYS, AFEBRILE, WHITE COUNT TRENDING DOWN (10.2)) Is the patient receiving the right drug, dose, and route?: Yes Could a more targeted ABx be ordered?: No How long ABx needed (days)?: 7 (PNEUMONIA)
[2024-10-28 09:28] VITALS: PULSE 98
[2024-10-28] MEDS: DIGOXIN 0.125MG TABLET 125 MCG PO (09:28)
[2024-10-28] MEDS: AMIODARONE 200MG TABLET 200 MG PO (09:29)
[2024-10-28] MEDS: APIXABAN 5MG TABLET 5 MG PO (09:29)
[2024-10-28] MEDS: POTASSIUM CHLORIDE 20MEQ TAB 40 MEQ PO (09:30)
[2024-10-28] MEDS: ASPIRIN 81MG CHEWABLE TABLET 81 MG PO (09:30)
[2024-10-28] MEDS: FINASTERIDE 5MG TABLET 5 MG PO (09:31)
[2024-10-28] MEDS: levETIRAcetam 500 MG TABLET 1000 MG PO (09:31)
[2024-10-28] MEDS: TAMSULOSIN 0.4MG CAPSULE 0.4 MG PO (09:31)
[2024-10-28] MEDS: NYSTATIN TOPICAL POWDER 30GM TP (09:45)
--- NOTE | 2024-10-28 10:38 | PC.WOUNDNOTE ---
erythema to gluteus iris
--- NOTE | 2024-10-28 11:29 | P.DS_ITS ---
General Admission date:: 10/24/24 Discharge date: 10/28/24 HPI HPI HPI: Mr. Fuentes is a 84-year-old male with a with a primary history of BPH, GERD, hypothyroidism, dementia, seizures, CHF, hyperlipidemia, A-fib; who presented to the emergency department today from [facility] with complaints of abdominal pain, chest discomfort/tightness, weakness, and increased confusion. Patient was recently admitted at [facility] for pneumonia, he states his visit there was approximately 10 days. He was then transferred to [facility] for [place]. His workup in the emergency room revealed he was in atrial fibrillation RVR, heart rate 132. Workup showed leukocytosis 21,000, FREDY creatinine 1.5, initial elevated troponin 0.04, and a BNP of 12,600. Imaging was obtained, CT which was independently interpreted by me showing bilateral pleural groundglass opacities likely bilateral pleural effusions. Patient does have known dementia but appeared to be more confused than normal per his family. He also has a new requirement of 2 L nasal cannula. Hospital Course Hospital Course Hospital Course: Mr. Fuentes is an 84-year-old male who is admitted to the hospital for HFpEF exacerbation, A-fib RVR, sepsis after recent stay at [facility] for a diagnosis of pneumonia. He came into the emergency department today with weakness, abdominal pain, chest discomfort. He was worked up in the emergency department and found to have fluid overload, bilateral pleural effusions, pe ricardial effusion, left lower lobe consolidation. After discharge from [facility] he was transitioned to [facility] for short-term rehabilitation. During examination he has no complaints. He is requiring 2 L O2 to maintain oxygen saturation above 92%. He was found to be 87% on room air in the emergency room. Patient was also found to have a white count of 21.4, electrolyte abnormalities , hyponatremic sodium 131, FREDY BUN 51, creatinine 1.5. BNP elevated at 12,600, hypothyroidism TSH 7.32. After discussion with the emergency room physician, decision was made by myself to admit patient for further management. Pulmonology and cardiology consulted to assist with patient. Patient has shown improvement with treatment during admission. BNP improving. White count normalized. Stable on 2 L. Globally weak. Necessitating further therapy. I have strong concerns about patient's potential for rehab just given his weakness and recurrent hospitalizations however family would like to pursue rehab based on extensive goals of care discussions. If does show further decline, they are open to considering hospice discussion. Prognosis remains guarded. Stable to discharge to skilled care at [facility] for further management. Problems addressed as follows: #Acute on chronic HFpEF #Community-acquired pneumonia #Sepsis #Left lower lobe consolidation #Acute hypoxic respiratory failure ? Upon admission patient had bilateral moderate effusions, repeat chest x-ray during admission showed stability of effusions. No worsening consolidation or airspace disease. Initially on vancomycin and Zosyn, transitioned to vancomycin and cefepime given his hospitalization. Transition to Levaquin at discharge. Needs 1 dose on 10/29 to complete 7 days of antibiotics for hospital-acquired pneumonia. White count initially 21.9, improved to 10 on day of discharge. Hemoglobin stable at 11. Platelets 161. Needs repeat CBC, CMP, magnesium in 1 week to monitor electrolytes, kidney function, white cell count. Echo during our admission shows EF of 70%. After review of hospital records from [facility], shows echo 2 weeks ago 55%. Negative volume status during admission, negative over 2-1/2 L. BNP initially elevated at 12,000, improved to 7700 on day of discharge. Recommend continuing diuretic with Lasix every other day 40 mg p.o. Can consider increasing to daily if concern for increasing edema. Stable oxygen requirement of 2 L during admission. Goal sats greater 90%. Kidney function improved and appears at baseline BUN 52, creatinine 1.5. Potassium 3.3 on morning of discharge. Sodium chronically low 130s during admission. Magnesium normal at 2.4. #Atrial fibrillation with RVR #FREDY ?Patient was diagnosed with A-fib recently, started on amiodarone and Eliquis. Patient states that he was in normal sinus rhythm prior to discharge from [facility]. Went back in A-fib while at rehab. Came in to our facility in A-fib with RVR with rates in the 120s. Cardiology was consulted, increased amiodarone to 200 mg twice daily. Initiated digoxin 125 mcg daily. Rate better controlled in the 80s and 90s on this regimen. Will continue Eliquis 5 mg twice daily for stroke prophylaxis. #Hypothyroidism #history of seizures #GERD #BPH ?TSH 7.32. Patient presented on levothyroxine 50 mcg daily, increased to 75 mcg daily. For seizure disorder, continue Keppra 1000 mg twice daily. Divalproex decreased to 500 mg twice daily due to concern for oversedation and possible buildup of metabolites. Valproic acid level still pending at discharge #Physical deconditioning Protein calorie malnutrition ?PT/OT consulted for further evaluation. Recommended placement. Speech assisting with care as well. Patient on modified diet with nectar thick liquids. -Discussed goals of care with family on multiple occasions. Hospice was consulted to evaluate and provide information in case patient's condition does not improve or shows deterioration. They would like to pursue skilled care initially. Patient to discharge to [facility] for further management. - Albumin decreasing. Down to 2.5 on day of discharge. Consistent with protein calorie malnutrition Total time spent on discharge 38 minutes in counseling, documentation, chart review, and direct care with patient. Exam Data for Last 24 hours Vital signs and Labs for Last 24 Hours: Temp Pulse Resp BP Pulse Ox O2 Del Method O2 Flow Rate 98.6 F 90 18 113/67 100 Nasal Cannula 2 10/27/24 06:00 10/27/24 06:00 10/27/24 06:00 10/27/24 06:00 10/27/24 06:00 10/27/24 06:23 10/27/24 06:23 Laboratory Results - last 24 hr 10/26/24 13:50: Troponin I 0.02 10/26/24 16:54: Troponin I 0.02 10/27/24 07:35: WBC 11.3 H, RBC 3.46 L, Hgb 10.7 L, Hct 32.1 L, MCV 92.8, MCH 30.9, MCHC 33.3, RDW 16.0, Plt Count 149, MPV 11.0 H, Neut % (Auto) 83.0 H, Lymph % (Auto) 6.9 L, Smyth % (Auto) 9.3, Eos % (Auto) 0.1, Baso % (Auto) 0.2, Neut # (Auto) 9.3 H, Lymph # (Auto) 0.8, Smyth # (Auto) 1.1 H, Eos # (Auto) 0.0, Baso # (Auto) 0.0 I & O for Last 24 hours: Intake & Output 10/24/24 10/25/24 10/26/24 10/27/24 23:59 23:59 23:59 23:59 Intake Total 940 / 940 734 / 834 587.371 / 587.371 0 / 0 Output Total 1625 / 1725 960 / 960 1275 / 1825 950 / 950 Balance -685 / -785 -226 / -126 -687.629 / -1237.629 -950 / -950 Weight 92.533 kg 93.38 kg 94.38 kg 97.477 kg Microbiology Reports for the Last 24 Hours: Microbiology 10/24/24 07:37 Blood Blood Culture - Preliminary NO GROWTH AFTER 48 HOURS 10/24/24 07:20 Blood Blood Culture - Preliminary NO GROWTH AFTER 48 HOURS Constitutional Constitutional: mild distress, obese, chronically ill appearing and cooperative *Routine HEENT Exam Head: Present normocephalic Eye: Present EOMI and PERRL ENT: Present mucous membranes moist *Routine Neck Exam Neck: Present supple; Absent lymphadenopathy *Routine Respiratory Exam Respiratory: Present crackles (Posterior lung field) and distant breath sounds; Absent respiratory distress or wheezes *Routine Cardiovascular Exam Cardiovascular: Present irregular rhythm Comments: Rate controlled *Routine Abdominal Exam Abdominal: Present soft and normoactive bowel sounds; Absent tenderness *Routine Rectal Exam Patient deferred: visual exam *Routine Exam Penile: Present swelling (Mild edema of scrotum. Germain catheter in place) *Routine Extremities Exam Extremities: Present edema (1+ in legs and arms), pulses intact and pallor; Absent cyanosis or clubbing *Routine Skin Exam Skin: Present intact and warm; Absent rash *Routine Neurological Exam Neurological: Present alert and moving all extremities; Absent altered mental status Comments: Globally weak, oriented to self and place. Answer simple questions. Awakes to voice Results Data Completed and Pending Labs on day of discharge: Labs from last 24 hours 10/27/24 10/26/24 10/26/24 07:35 16:54 13:50 WBC 11.3 H RBC 3.46 L Hgb 10.7 L Hct 32.1 L MCV 92.8 MCH 30.9 MCHC 33.3 RDW 16.0 Plt Count 149 MPV 11.0 H Neut % (Auto) 83.0 H Lymph % (Auto) 6.9 L Smyth % (Auto) 9.3 Eos % (Auto) 0.1 Baso % (Auto) 0.2 Neut # (Auto) 9.3 H Lymph # (Auto) 0.8 Smyth # (Auto) 1.1 H Eos # (Auto) 0.0 Baso # (Auto) 0.0 Troponin I 0.02 0.02 Preliminary micro results at discharge 10/24/24 07:37 Blood Culture - Preliminary Blood NO GROWTH AFTER 48 HOURS 10/24/24 07:20 Blood Culture - Preliminary Blood NO GROWTH AFTER 48 HOURS DS: Diagnosis Discharge Diagnosis (1) Hospital-acquired pneumonia: Status: Acute Code(s): J18.9 - Pneumonia, unspecified organism; Y95 - Nosocomial condition (2) Sepsis: Status: Acute Code(s): A41.9 - Sepsis, unspecified organism (3) Acute on chronic heart failure with preserved ejection fraction (HFpEF): Status: Acute Code(s): I50.33 - Acute on chronic diastolic (congestive) heart failure (4) Atrial fibrillation with rapid ventricular response: Status: Acute Code(s): I48.91 - Unspecified atrial fibrillation (5) Physical deconditioning: Status: Acute Code(s): R53.81 - Other malaise (6) BPH (benign prostatic hyperplasia): Status: Acute Code(s): N40.0 - Benign prostatic hyperplasia without lower urinary tract symptoms (7) GERD (gastroesophageal reflux disease): Status: Acute Code(s): K21.9 - Gastro-esophageal reflux disease without esophagitis (8) History of seizures: Status: Acute Code(s): Z87.898 - Personal history of other specified conditions (9) Failure to thrive: Status: Acute (10) Protein calorie malnutrition: Status: Acute Code(s): E46 - Unspecified protein-calorie malnutrition Meds Home Medications and Allergies Home Medications ?Medication ?Instructions ?Recorded ?Confirmed ?Type Lactobacillus acidophilus 10 10,000 mmu cells PO DAILY 10/24/24 10/24/24 History billion cell capsule acetaminophen 325 mg tablet 650 mg PO Q4HP PRN Mild Pa in 10/24/24 10/24/24 History (Scale Score 1-4) apixaban 5 mg tablet 5 mg PO BID 10/24/24 5 History aspirin 81 mg chewable tablet 81 mg PO DAILY 10/24/24 10/24/24 History atorvastatin 40 mg tablet 40 mg PO DAILY 10/24/2410/01 History calcium carbonate 200 mg PO DAILY 10/24/24 History cholecalciferol (vitamin D3) 50 50 mcg PO Q48H 10/24/24 History mcg (2,000 unit) tablet cyanocobalamin (vitamin B-12) 1,000 mcg PO DAILY 10/2410/24/24 History 1,000 mcg tablet finasteride 5 mg tablet 5 mg PO DAILY 10/24/2410/24 History fluticasone propionate 50 1 spray intranasal DAILYP OH N 10/24/24 10/24/24 History mcg/actuation nasal Allergy Symptoms spray,suspension ipratropium 0.5 mg-albuterol 3 mg 3 ml inhalation QID 10/24/24 10/24/24 History (2.5 mg base)/3 mL nebulization soln levetiracetam 1,000 mg tablet 1,000 mg PO BID 10/24/24 10/24/24 History midodrine 10 mg tablet 10 mg PO TID 10/24/24 History multivitamin 1 tab PO DAILY 10/24/2410/01 History nystatin 100,000 unit/gram topical 1 applic topical BI D 10/24/24 10/24/24 History powder pantoprazole 40 mg tablet,delayed 40 mg PO DAILY 10/2410/24/24 History release amiodarone 200 mg tablet 200 mg PO BID 30 days #60 ta bs 10/28/24 Rx digoxin 125 mcg (0.125 mg) tablet 125 mcg PO DAILY 30 days #30 tabs 10/28/24 Rx divalproex 500 mg tablet,extended 500 mg PO BID 30 day s #60 tabs 10/28/24 Rx release 24 hr furosemide 40 mg tablet 40 mg PO Q48H 30 days #15 ta bs 10/28/24 Rx levofloxacin 750 mg tablet 750 mg PO Q48H #1 tab 10/28 Rx levothyroxine 75 mcg capsule 75 mcg PO DAILY #30 caps 10/28/24 Rx potassium chloride 20 mEq 40 meq (2 x 20 mEq) PO DAILY 30 10/28/24 Rx tablet,extended days #60 tabs release(part/cryst) (Klor-Con M) tamsulosin 0.4 mg capsule 0.8 mg (2 x 0.4 mg) PO DAILY 30 10/28/24 Rx days #60 caps New Prescriptions to Start Prescriptions: amiodarone Sung,Rowdy digoxin Sung,Rowdy divalproex Sung,Rowdy furosemide Sung,Rowdy levofloxacin Sung,Rowdy levothyroxine Sung,Rowdy potassium chloride [Klor-Con M20] Sung,Rowdy tamsulosin Sung,Rowdy Allergies Allergy/AdvReac Type Severity Reaction Status Date / Time amoxicillin (From Augmentin) Allergy Rash Verified 10/24/24 12:21 clavulanic acid (From Allergy Rash Verified 10/24/24 12:21 Augmentin) Penicillins Allergy Rash Verified 10/24/24 09:18 Discharge Plan Disposition Patient Disposition: [facility] Condition: Fair Discharge Order Discharge Orders: Discharge Order (Routine); Ordered 10/28/24 Ordered By: Rowdy Almaraz Follow up Plan Follow up with: Eran Newman MD [Physician, Pulmonology] - Enter time for follow up Darrion Deal MD [Staff Physician, Cardiology] - Enter time for follow up Prescriptions/Medication Reconciliation: New amiodarone 200 mg Tablet 200 mg PO BID 30 Days Qty: 60 0RF levofloxacin 750 mg tablet 750 mg PO Q48H Qty: 1 0RF Rx Instructions: 1 more dose on 10/29 to complete 7-day course due to renal clearance adjustment potassium chloride [Klor-Con M20] 20 mEq Tablet,Er Particles/Crystals 40 meq PO DAILY 30 Days Qty: 60 0RF digoxin 125 mcg (0.125 mg) Tablet 125 mcg PO DAILY 30 Days Qty: 30 0RF levothyroxine 75 mcg capsule 75 mcg PO DAILY Qty: 30 0RF Continued multivitamin Tablet 1 tab PO DAILY atorvastatin 40 mg tablet 40 mg PO DAILY acetaminophen 325 mg Tablet 650 mg PO Q4HP PRN (Reason: Mild Pain (Scale Score 1-4)) ipratropium-albuterol 0.5 mg-3 mg(2.5 mg base)/3 mL Solution For Nebulization 3 ml INHALATION QID cyanocobalamin (vitamin B-12) 1,000 mcg Tablet 1,000 mcg PO DAILY pantoprazole 40 mg tablet,delayed release (DR/EC) 40 mg PO DAILY calcium carbonate 200 mg calcium (500 mg) Tablet,Chewable 200 mg PO DAILY aspirin 81 mg Tablet,Chewable 81 mg PO DAILY nystatin 100,000 unit/gram Powder 1 applic TOPICAL BID fluticasone propionate 50 mcg/actuation [place]olski,Suspension 1 spray INTRANASAL DAILYP PRN (Reason: Allergy Symptoms) Rx Instructions: administer into each nostril finasteride 5 mg tablet 5 mg PO DAILY midodrine 10 mg Tablet 10 mg PO TID Rx Instructions: do not give last dose of day after 6PM or within 4 hrs of bedtime levetiracetam 1,000 mg Tablet 1,000 mg PO BID cholecalciferol (vitamin D3) 50 mcg (2,000 unit) Tablet 50 mcg PO Q48H Lactobacillus acidophilus 10 billion cell Capsule 10,000 mmu cells PO DAILY apixaban 5 mg Tablet 5 mg PO BID Changed furosemide 40 mg Tablet 40 mg PO Q48H 30 Days Qty: 15 0RF Rx Instructions: Administer every other day starting Sunday 10/29 tamsulosin 0.4 mg capsule 0.8 mg PO DAILY 30 Days Qty: 60 0RF divalproex 500 mg Tablet Extended Release 24 Hr 500 mg PO BID 30 Days Qty: 60 0RF Rx Instructions: Decreased due to oversedation concern Discontinued amiodarone 200 mg Tablet 200 mg PO DAILY levothyroxine [Synthroid] 50 mcg tablet 50 mcg PO DAILY Problem Reconciliation Problems Reviewed?: Yes Patient Discharge Instructions ACTIVITY: Continue current activity DIET: continue same diet Patient Instructions: Pneumonia--Adult, Sepsis, Catheter-Associated Urinary Tract Infection, Stop Light Pneumonia, Stop Light Heart Failure, Stop Light Infection Print Language: Malagasy Providers Primary Care Provider: Mini Freire Admit Provider: Rowdy Almaraz Attending Provider: Rowdy Almaraz
--- NOTE | 2024-10-28 12:24 | PC.NURSE ---
Report called to Turner Nixon.
[2024-10-28 16:10] LABS: Free Valproic Acid (Depakote) 43.9 ug/mL (6.0-22.0)
== END 2024-10-28 13:34 | disposition home or self-care (01) | DRG 871 ==
LOC: ER 08:19 → 2ND 11:12 → ICU 10-25 12:42 → 2ND 10-26 21:04
PROVIDERS: Admitting Provider Internal Medicine Adolescent Medicine; Emergency Provider Emergency Medicine; PCP Family Medicine; Visit Provider Internal Medicine Adolescent Medicine
DX: A41.9 Sepsis, unspecified organism (principal); I50.33 Acute on chronic diastolic (congestive) heart failure; J18.9 Pneumonia, unspecified organism; J96.01 Acute respiratory failure with hypoxia; N17.9 Acute kidney failure, unspecified; E46 Unspecified protein-calorie malnutrition; E87.1 Hypo-osmolality and hyponatremia; I31.39 Other pericardial effusion (noninflammatory); Z66 Do not resuscitate; I48.91 Unspecified atrial fibrillation; E78.5 Hyperlipidemia, unspecified; N40.0 Benign prostatic hyperplasia without lower urinary tract symptoms; K21.9 Gastro-esophageal reflux disease without esophagitis; R53.81 Other malaise; E03.9 Hypothyroidism, unspecified; F03.90 Unspecified dementia, unspecified severity, without behavioral disturbance, psychotic disturbance, mood disturbance, and anxiety; M81.0 Age-related osteoporosis without current pathological fracture; Z79.82 Long term (current) use of aspirin; Z79.01 Long term (current) use of anticoagulants; Z79.890 Hormone replacement therapy; Z79.899 Other long term (current) drug therapy; Z88.0 Allergy status to penicillin; Y95 Nosocomial condition; G40.909 Epilepsy, unspecified, not intractable, without status epilepticus; I95.9 Hypotension, unspecified; Z68.31 Body mass index [BMI] 31.0-31.9, adult
CPT/HCPCS: 36415; 51702; 71045; 71275; 74174; 80053; 80061; 80165; 80202; 81001; 82803; 83605; 83690; 83735; 83880; 84100; 84145; 84436; 84443; 84484; 85025; 85610; 85730; 87040; 92610; 93005; 93306; 93970; 94640; 94761; 97162; 97166; 97530; J0282; J0692; J1160; J1938; J2543; J3372; J7060; J7120; J7614; Q9967

== ENCOUNTER 2024-11-05 17:01 | Outpatient (CLI) | payer MEDICARE, SELFPAY ==
--- OUTSIDE RECORDS SUMMARY | 2024-11-05 17:04 | XMS_ITS | Encounter Summary ---
Author Organization [employer] ([place], [place], [place], [place]) Address [address] [place] [address] Care Team Providers Care Forest Fire Control Officer Name Role Phone Unavailable Primary Care Provider Unavailabl e Encounter Details Date Type Department Care Team (Late st Contact Info) Description 11/29/2018 Transcribed Document [facility] [place] Family Medicine [address] [place] [address] ProviderDarwin MD [address] [place] [address] Social History Tobacco Use Types [...]
--- OUTSIDE RECORDS SUMMARY | 2024-11-05 17:04 | XMS_ITS | Encounter Summary ---
Author Organization [employer] ([place], [place], [place], [place]) Address [address] [place] [address] Care Team Providers Care Heavy Equipment Mechanic Name Role Phone Unavailable Primary Care Provider Unavailabl e Encounter Details Date Type Department Care Team (Late st Contact Info) Description 11/29/2018 Transcribed Document [facility] [place] Medicine [facility] [place] [address] ProviderDarwin MD [address] [place] [address] Social History Tobacco Use Types [...] hip bursa one week prior to surgery) documented in this encounter Plan of Treatment Not on file documented as of this encounter Visit Diagnoses Not on filedocumented in this encounter
--- OUTSIDE RECORDS SUMMARY | 2024-11-05 17:04 | XMS_ITS | Encounter Summary ---
Author Organization [employer] ([place], [place], [place], [place]) Address [address] [place] [address] Care Team Providers Care Sales Representatives Name Role Phone Unavailable Primary Care Provider Unavailabl e Encounter Details Date Type Department Care Team (Late st Contact Info) Description 11/26/2018 Transcribed Document [facility] [facility] [place] [address] ProviderDarwin MD [address] [place] [address] Social History Tobacco Use [...] Cris Goodman RN - 11/27/2018 1:17 EDT Electronically signed by Vicente Rueda Conversion Microfilm Duplicating Unit Supervisor Ceralexander at 08/17/2022 9:47 AM CDT documented in this encounter Plan of Treatment Not on file documented as of this encounter Visit Diagnoses Not on filedocumented in this encounter
--- OUTSIDE RECORDS SUMMARY | 2024-11-05 17:04 | XMS_ITS | Encounter Summary ---
Author Organization [employer] ([place], [place], [place], [place]) Address [address] [place] [address] Care Team Providers Care Digital Developer Name Role Phone Unavailable Primary Care Provider Unavailabl e Encounter Details Date Type Department Care Team (Late st Contact Info) Description 11/29/2018 Transcribed Document [facility] [place] [facility] [place] [address] ProviderDarwin MD [address] [place] [address] Social History Tobacco Use Types [...] Historical ProviderMD - 11/29/2018 2:52 PM CDT Nursing Discharge Summary Entered On: 11/29/2018 14:54 EDT Performed On: 11/29/2018 14:52 EDT by ERICA GOODWIN RN-Charge Discharge Documentation Patient Disposition, General : Discharge Discharge To : Retirement unit/facility Mode Of Departure, General Discharge : [...] materials Teaching Evaluation : Verbalizes understanding ERICA GOODWIN RN-Charge - 11/29/2018 14:52 EDT Electronically signed by Marybeth [facility] Conversion Cardiopulmonary Supervisor Cerner at 08/17/2022 9:48 AM CDT documented in this encounter Plan of Treatment Not on file documented as of this encounter Visit Diagnoses Not on filedocumented in this encounter
--- OUTSIDE RECORDS SUMMARY | 2024-11-05 17:04 | XMS_ITS | Encounter Summary ---
Author Organization [employer] ([place], [place], [place], [place]) Address [address] [place] [address] Care Team Providers Care Ruby On Rails Developer Name Role Phone Unavailable Primary Care Provider Unavailabl e Encounter Details Date Type Department Care Team (Late st Contact Info) Description 11/29/2018 Transcribed Document [facility] [place] Counts include 234 beds at the [facility] [address] ProviderDarwin MD Counts include [address] beds at [place] [facility] [place] [address] Social History Tobacco Use Types [...] LUIS AGARWAL, PT - 11/29/2018 11:57 EDT Development Executive Goals Other PT LTG Grid Goal #1 [...] the text rendition version of the form. [place] PT Charges PT Therap. Exercise 15 min : 1 Gait Training Each 15 Min : 1 LUIS AGARWAL, PT - 11/29/2018 11:57 EDT documented in this encounter Plan of Treatment Not on file documented as of this encounter Visit Diagnoses Not on filedocumented in this encounter
--- OUTSIDE RECORDS SUMMARY | 2024-11-05 17:04 | XMS_ITS | Encounter Summary ---
Author Organization [employer] ([place], [place], [place], [place]) Address [address] [place] [address] Care Team Providers Care Consumer Loan Specialist Name Role Phone Unavailable Primary Care Provider Unavailabl e Encounter Details Date Type Department Care Team (Late st Contact Info) Description 11/26/[address] [facility] [place] [facility] [place] [address] ProviderDarwin MD [address] [place] [address] Social History Tobacco Use Types [...]
--- OUTSIDE RECORDS SUMMARY | 2024-11-05 17:04 | XMS_ITS | Encounter Summary ---
Author Organization [employer] ([place], [place], [place], [place]) Address [address] [place] [address] Care Team Providers Care Production Analyst Name Role Phone Unavailable Primary Care Provider Unavailabl e Encounter Details Date Type Department Care Team (Late st Contact Info) Description 11/29/2018 Transcribed Document [facility] [place] Family Medicine [address] [place] [address] ProviderDarwin MD [address] [place] [address] Social History Tobacco Use Types [...] 11/29/2018 15:19 EDT Electronically signed by Marybeth [facility] Conversion Brick Picker Cerner at 08/17/2022 9:46 AM CDT documented in this encounter Plan of Treatment Not on file documented as of this encounter Visit Diagnoses Not on filedocumented in this encounter
--- OUTSIDE RECORDS SUMMARY | 2024-11-05 17:04 | XMS_ITS | Encounter Summary ---
Author Organization [employer] ([place], [place], [place], [place]) Address [address] [place] [address] Care Team Providers Care Regulatory Affairs Coordinator Name Role Phone Unavailable Primary Care Provider Unavailabl e Encounter Details Date Type Department Care Team (Late st Contact Info) Description 11/26/2018 Transcribed Document [facility] Family Medicine [place] [address] ProviderDarwin MD [address] [place] [address] Social History Tobacco Use Types [...]
--- OUTSIDE RECORDS SUMMARY | 2024-11-05 17:05 | XMS_ITS | Encounter Summary ---
Author Organization [employer] ([place], [place], [place], [place]) Address [address] [place] [address] Care Team Providers Care Curatorial Assistant Name Role Phone Unavailable Primary Care Provider Unavailabl e Encounter Details Date Type Department Care Team (Late st Contact Info) Description 11/29/2018 Transcribed Document [facility] [place] [facility] [place] [address] ProviderDarwin MD [address] [place] [address] Social History Tobacco Use Types [...] Darwin ProviderMD - 11/29/2018 3:29 PM CDT [place] [id number] CLAUDINE GARAY :1940 Visit Time:11/26/2018 Your Visit Summary Your Care Team Admitting Physician - MELANIE SANDOVAL MD-INT JEFF MCNEIL MD-EMR [facility], [facility] Attending Physician - MELANIE SANDOVAL MD-INT JEFF MCNEIL MD-EMR Primary Care Physician - BLAIRE ALBERT (REF)MD-[facility] Referring Physician - YANIV, SELF REFERRED Your [...] as tolerated Follow-Up Appointments Follow Up with BRIDGTETE GASTON MD-ORT When 12/13/2018 10:30 AM EDT Comments Appointment has been made Where: [facility] [address] [place] [address]- Medications What How Much When Instructions Next Dose acetaminophen-hydrocodone (Lyndon 7.5 mg-325 mg oral tablet) 1 Tablet(s) [...] Barley. Bulgur wheat. Millet. Bran muffins. Popcorn. [place] wafer crackers. Vegetables Sweet potatoes. Spinach. Kale. Artichokes. Cabbage. Broccoli. Green peas. Carrots. Squash. Fruits Berries. Pears. Apples. Oranges. Avocados. Prunes and raisins. Dried figs. Meats and Other Protein Sources [place], kidney, miranda, and soy beans. Split peas. [...] maisha has 11 g of protein. ??? Mcclain seeds ??? 1 oz has 5.5 g [...] floor. ??? Place frequently used items in yybv-dn-fnjhi places ??? Keep electrical cables out of [...] ??? Using the bathroom. ??? Using household rattling machine tender or toxic chemicals. ??? Touching or taking [...] may report side effects to FDA at 6-407-VON-6220. What other drugs will affect acetaminophen and [...] affect acetaminophen and oxycodone, including prescription and zrnx-ydz-sjjnpgr medicines, vitamins, and herbal products. Not all [...] to ensure that the information provided by [employer]. ('[employer]') is accurate, up-to-date, and complete, but no guarantee is made to that effect. Drug information contained herein may be time sensitive. [employer] information has been compiled for use by healthcare practitioners and consumers in the [place] and therefore [employer] does not warrant that uses outside of the [place] are appropriate, unless specifically indicated otherwise. [employer] drug information does not endorse drugs, diagnose patients or recommend therapy. [employer] drug information is an informational resource designed [...] effective or appropriate for any given patient. [employer] does not assume any responsibility for any aspect of healthcare administered with the aid of information [employer] provides. The information contained herein is not intended to cover all possible uses, directions, precautions, warnings, drug interactions, allergic reactions, or adverse effects. If you have questions about the drugs you are taking, check with your doctor, nurse or pharmacist. Copyright 7643-8682 [employer]. Version: 18.02. Revision Date: 03/29/2018. cephalexin (sef [...] may report side effects to FDA at 8-385-YBA-7402. What other drugs will affect cephalexin? Tell your doctor about all your other medicines, especially: ?? metformin; or ?? probenecid. This list is not complete. Other drugs may affect cephalexin, including prescription and tkec-ncm-pntvpap medicines, vitamins, and herbal products. Not all [...] to ensure that the information provided by [employer]. ('[employer]') is accurate, up-to-date, and complete, but no guarantee is made to that effect. Drug information contained herein may be time sensitive. [employer] information has been compiled for use by healthcare practitioners and consumers in the [place] and therefore [employer] does not warrant that uses outside of the [place] are appropriate, unless specifically indicated otherwise. [employer] drug information does not endorse drugs, diagnose patients or recommend therapy. [employer] drug information is an informational resource designed [...] effective or appropriate for any given patient. [employer] does not assume any responsibility for any aspect of healthcare administered with the aid of information [employer] provides. The information contained herein is not intended to cover all possible uses, directions, precautions, warnings, drug interactions, allergic reactions, or adverse effects. If you have questions about the drugs you are taking, check with your doctor, nurse or pharmacist. Copyright 1561-1282 [employer]. Version: 10.. Revision Date: 04/28/2018. Emergency Awareness [...] Assistance with quitting is available by contacting 9-571-GNEMNOW. This is a free resource providing counseling, support, and referral. Or you may contact your personal physician. [place] Suicide Prevention Lifeline: The National Suicide Prevention [...] range between ( 1.0 and 7.0 ) Bradford #: 1.08 K/uL -- Normal range between ( 0.24 and 0.82 ) Eos #: 0.05 K/uL -- Normal range between ( 0.04 and 0.54 ) Bradford %: 8.1 % -- Normal range between [...] Urine Bilirubin Dipstick: Negative mg/dL Urine Specific [place]: 1.008 -- Normal range between ( 1.005 and 1.030 ) Urine Type.: [facility] Chemistry 11/29/18 02:51:00 Creatinine Level: 0.99 [...] LT WO Diagnostic Radiology 11/26/18 15:30:00 CR Leida in OR: CR Leida in OR Patient Name:CLAUDINE GARAY I have received and understand this information and was given the opportunity to ask questions. Patient/Forgeman Helper Name: Patient/Forgeman Helper Signature: Relationship to Patient: Clinician/Hospital Forgeman Helper Signature: Date: Electronically signed by Marybeth, [facility] Conversion Bookmobile Driver Ace at 08/17/2022 10:06 AM CDT documented in this encounter Plan of Treatment Not on file documented as of this encounter Visit Diagnoses Not on filedocumented in this encounter
--- OUTSIDE RECORDS SUMMARY | 2024-11-05 17:05 | XMS_ITS | Encounter Summary ---
Author Organization [employer] ([place], [place], [place], [place]) Address [address] [place] [address] Care Team Providers Care Double End Tenoner Operator Name Role Phone Unavailable Primary Care Provider Unavailabl e Encounter Details Date Type Department Care Team (Late st Contact Info) Description 11/26/[address] [facility] [place] [facility] [place] [address] ProviderDarwin MD [address] [place] [address] Social History Tobacco Use Types [...] Level : Assist, minimal Toileting Device : Bmimq-if-aze commode Toilet Transfer Assist Level : Assist, minimal Toilet Transfer Device : Belt, gait, Walker, rolling, Egwyy-rk-tlg commode ANITA ALVAREZ OTR/Delilah 11/27/2018 9:20 EDT [...] Raw Score : 21 ANITA ALVAREZ OTR/Delilah - 11/27/2018 9:20 EDT Image 3 - Images [...] ANITA ALVAREZ OTR/Delilah - 11/27/2018 9:20 EDT Jail Goals, OT Other LTG Grid Goal #1 [...] Continued Therapy at Discharge : Yes ANITA ALVAREZ OTR/L - 11/27/2018 9:[address] [facility] OT Charges OT Selfcare/Hm Mgmt Ea 15 Min : 1 OT Eval Low Complexity : 1 ANITA ALVAREZ OTR/L - 11/27/2018 9:20 EDT Electronically signed by Marybeth [facility] Conversion Oncology Radiation Physician Cerner at 08/17/2022 9:59 AM CDT documented in this encounter Plan of Treatment Not on file documented as of this encounter Visit Diagnoses Not on filedocumented in this encounter
--- OUTSIDE RECORDS SUMMARY | 2024-11-05 17:05 | XMS_ITS | Encounter Summary ---
Author Organization [employer] ([place], [place], [place], [place]) Address [address] [place] [address] Care Team Providers Care Equipment Mechanic Name Role Phone Unavailable Primary Care Provider Unavailabl e Encounter Details Date Type Department Care Team (Late st Contact Info) Description 12/04/2018 Transcribed Document [facility] [place] Medicine [facility] [place] [address] ProviderDarwin MD [address] [place] [address] Social History Tobacco Use Types Packs/Day Years Used Date Smoking Tobacco: Never Assessed Sex and Gender Information Value Date Recorded Sex Assigned at Male 10/27/2021 3:42 PM CDT Legal Sex Male 3:42 PM CDT Gender Identity Male 10/27/2021 3:42 PM CDT Sexual Orientation Not on file documented as of this encounter Miscellaneous Notes * Cerner Conversion Note - Historical ProviderMD - 12/04/2018 2:06 PM CDT Discharge [...] 190ft with CGA with RWx. D/C to [facility]. Gurpreet Bowser, Physical Therapist - 12/04/2018 14:06 EDT Pick And Shovel Worker Goals Other PT LTG Grid Goal #1 [...]
--- OUTSIDE RECORDS SUMMARY | 2024-11-05 17:05 | XMS_ITS | Referral Summary ---
Author Organization [employer] ([place], [place], [place], [place]) Address [address] [place] [address] Care Team Providers Care Vendor Quality Supervisor Name Role Phone Unavailable Primary Care [...]
--- OUTSIDE RECORDS SUMMARY | 2024-11-05 17:05 | XMS_ITS | Encounter Summary ---
Author Organization [employer] ([place], [place], [place], [place]) Address [address] [place] [address] Care Team Providers Care Tobacco Grower Name Role Phone Unavailable Primary Care Provider Unavailabl e Encounter Details Date Type Department Care Team (Late st Contact Info) Description 11/26/2018 Transcribed Document [facility] [place] [facility] [place] [address] ProviderDarwin MD [address] [place] [address] Social History Tobacco Use Types [...] Conversion Note - Darwin ProviderMD - 11/26/2018 10:45 AM CDT Patient: CLAUDINE GARAY Age: 78 years Sex: Male : 1940 Associated Diagnoses: Fracture of femoral neck, left, closed; Hypertension Author: JEFF MCNEIL MD Basic Information Time seen: Date & time 11/26/2018 10:45:00, Voice recognition / concrete hopper operator technology used for some documentation in this [...] ago . History of Present Illness Mr. aGray, presents via POV and wheelchair to room [...] scheduled to have a evaluation by a [facility] orthopedists a few weeks down [...] standing. Musculoskeletal: osteoarthritis, osteoporosis. Surgical history: Appendectomy ([id number]). knee arthroscopy bilateral. left hand. bilateral cataract [...] EDT Height Source Stated Height Entry Format [place] Height/Length, BARBADIAN (ft) 5 ft Height/Length BARBADIAN 7 Inch CLINICALHEIGHT 170.18 cm [place] Body Weight 65.16 kg Weight Source, ED Critical estimated dosing weight Weight Entry Format [place] Weight Armenian lb 197 lb CLINICALWEIGHT 89.55 kg Body [...] ED Adult Triage: ED Clinical Reconciliation: ED pedigree tracer: Normal Saline Bolus: 1,000 mL, 100 mL/Hr, IV Piggyback, 1-Time. Results review: Lab results : Lab Results 11/26/2018 12:10 EDT Urine Color Yellow Urine Appearance Clear Urine Specific [place] 1.008 Urine pH Dipstick 7.0 Urine Leukocyte Esterase Negative Urine Nitrite Negative Urine Protein Dipstick Negative Urine Glucose Dipstick Negative Urine Ketones Dipstick Negative Urine Urobilinogen Dipstick 0.2 EU/dL Urine Bilirubin Dipstick Negative mg/dL Urine Blood Dipstick Negative . Radiology results: Radiology Results (Last 48 hours) [id number] -- 11/26/2018 10:38 CT Hip LT WO [...]
--- OUTSIDE RECORDS SUMMARY | 2024-11-05 17:05 | XMS_ITS | Encounter Summary ---
Author Organization [employer] ([place], [place], [place], [place]) Address [address] [place] [address] Care Team Providers Care Disc Sander Name Role Phone Unavailable Primary Care Provider Unavailabl e Encounter Details Date Type Department Care Team (Late st Contact Info) Description 11/27/2018 Transcribed Document [facility] [place] Medicine [facility] [place] [address] ProviderDarwin MD [address] [place] [address] Social History Tobacco Use Types [...] Conversion Note - Historical ProviderMD - 11/27/2018 11:18 AM CDT Event Note Entered On: 11/27/2018 11:19 EDT Performed On: 11/27/2018 11:18 EDT by Frida Muir Rn Event Note Event Date/Time : 11/27/2018 8:37 EDT Event Location : Assigned room Description of Event : Called pharmacy per verbal order of Dr. Lyon to reorder patient's home medication, Proscar 5 mg daily. Frida Muir Rn - 11/27/2018 11:18 EDT Electronically signed by Vicente Rueda Conversion Substation Operator Helper Generation Ace at 08/17/2022 9:46 AM CDT documented in this encounter Plan of Treatment Not on file documented as of this encounter Visit Diagnoses Not on filedocumented in this encounter
--- OUTSIDE RECORDS SUMMARY | 2024-11-05 17:05 | XMS_ITS | Encounter Summary ---
Author Organization [employer] ([place], [place], [place], [place]) Address [address] [place] [address] Care Team Providers Care Diagnostic Imaging Manager Name Role Phone Unavailable Primary Care Provider Unavailabl e Encounter Details Date Type Department Care Team (Late st Contact Info) Description 11/26/2018 Transcribed Document [facility] [place] Medicine [facility] [address] ProviderDarwin MD [address] [place] [address] Social History Tobacco Use Types [...] Conversion Note - Historical ProviderMD - 11/26/2018 10:38 AM CDT ED [...] : 3 - Urgent Tracking Group [facility] ROSIBEL SOLOMON - 11/26/2018 10:42 EDT Mode of Arrival : Wheelchair Transported to ED by : Private vehicle To Room Via : Wheelchair Accompanied By : Spouse ED Vital Signs : Document Height & Weight : Document ED Allergies : Document ED Reason for Visit : Document ROSIBEL SOLOMON 11/26/2018 10:42 EDT Infectious Disease History Infectious Disease History : Chicken pox/Shingles, Measles Fever/Chills Last 48 Hours : No Travel To Regions with Travel Advisories : No Travel Outside [place] Within Last 30 Days : No Contact With Traveler to Advisory Region : No Tuberculosis Symptoms : None ROSIBEL SOLOMON 11/26/2018 10:42 EDT Vital Signs ED Temperature Source : Tympanic Temperature Mode : Fahrenheit Peripheral Pulse Rate : 71 bpm Respiratory Rate : 18 Breaths/Min Systolic Blood Pressure : 153 mmHg (HI) Diastolic Blood Pressure : 78 mmHg Oxygen Saturation : 98 % ROSIBEL SOLOMON 11/26/2018 10:42 EDT Allergy (As Of: 11/26/2018 10:45:10 EDT) Allergies (Active) No Known Medication Allergies Estimated Onset Date: Unspecified ; Created By: HAL BANKS RN; Reaction Status: Active ; Category: Drug ; Substance: No Known Medication Allergies ; Type: Allergy ; Updated By: HAL BANKS RN; Reviewed Date: 02/07/2018 20:39 EDT Diagnosis Control ED (As Of: 11/26/2018 10:45:10 EDT) Problems(Active) Arthritis (SNOMED CT :3790420 ) Name of Problem: Arthritis ; Recorder: Joan Miller Nurse - other; Confirmation: Confirmed ; Classification: Medical ; Code: [id number] ; Contributor System: [employer] ; Last Updated: 06/08/2017 13:34 EST ; Life Cycle Date: 06/08/2017 ; Life Cycle Status: Active ; Vocabulary: SNOMED CT Hyperlipidemia with low HDL (SNOMED CT :60064452 ) Name of Problem: Hyperlipidemia with low HDL ; Recorder: Joan Miller Nurse - other; Confirmation: Confirmed ; Classification: Medical ; Code: [id number] ; Contributor System: PowerChart ; Last Updated: 06/08/2017 13:36 EST ; Life Cycle Date: 06/08/2017 ; Life Cycle Status: Active ; Vocabulary: SNOMED CT Seizure disorder (SNOMED CT :026626654 ) Name of Problem: Seizure disorder ; Recorder: Joan Miller Nurse - other; Confirmation: Confirmed ; Classification: Medical ; Code: [id number] ; Contributor System: PowerChart ; Last Updated: 06/08/2017 13:35 EST ; Life Cycle Date: 06/08/2017 ; Life Cycle Status: Active ; Vocabulary: SNOMED CT Diagnoses(Active) Hip pain-swelling Date: 11/26/2018 ; Diagnosis Type: Reason For Visit ; Confirmation: Complaint of ; Clinical Dx: Hip pain-swelling ; Classification: Medical ; Clinical Service: Emergency medicine ; Code: PNED ; Probability: 0 ; Diagnosis Code: [id number] ED Height and Weight Height Source : Stated Height Entry Format : [place] Height, Feet : 5 ft(Converted to: 152 cm, 60 Inch) Height, Inches : 7 Inch(Converted to: 0 ft 7 Inch, 17.78 cm) Clinical Height : 170.18 cm Weight Source, ED : Critical estimated dosing weight Weight Entry Format : [place] Weight, Pounds : 197 lb Clinical Dosing Weight : 89.55 kg Body Surface Area (BSA) : 2.01 m2 Body Mass Index : 30.9 kg/m2 (HI) [place] Body Weight (IBW) : 65.16 kg ROSIBEL SOLOMON 11/26/2018 10:42 EDT Electronically signed by Vicente Rueda Conversion Delinquent Tax Collection Assistant Cerner at 08/17/2022 9:51 AM CDT documented in this encounter Plan of Treatment Not on file documented as of this encounter Visit Diagnoses Not on filedocumented in this encounter
--- OUTSIDE RECORDS SUMMARY | 2024-11-05 17:05 | XMS_ITS | Encounter Summary ---
Author Organization [employer] ([place], [place], [place], [place]) Address [address] [place] [address] Care Team Providers Care Brush And Broom Clipper Name Role Phone Unavailable Primary Care Provider Unavailabl e Encounter Details Date Type Department Care Team (Late st Contact Info) Description 11/26/2018 Transcribed Document [facility] [place] [address] [place] [address] ProviderDarwin MD [address] [place] [id number] Social History Tobacco Use Types Packs/Day Years Used Date Smoking Tobacco: Never Assessed Sex and Gender Information Value Date Recorded Sex Assigned at Male 10/27/2021 3:42 PM CDT Legal Sex Male 3:42 PM CDT Gender Identity Male 10/27/2021 3:42 PM CDT Sexual Orientation Not on file documented as of this encounter Miscellaneous Notes * Cerner Conversion Note - Historical ProviderMD - 11/26/2018 12:43 PM CDT Pain [...]
--- OUTSIDE RECORDS SUMMARY | 2024-11-05 17:05 | XMS_ITS | Encounter Summary ---
Author Organization [employer] ([place], [place], [place], [place]) Address [address] [place] [address] Care Team Providers Care Fruit Sorter Name Role Phone Unavailable Primary Care Provider Unavailabl e Encounter Details Date Type Department Care Team (Late st Contact Info) Description 11/26/2018 Transcribed Document [facility] [place] [facility] [place] [address] ProviderDarwin MD [address] [place] [address] Social History Tobacco Use Types [...] Conversion Note - Historical ProviderMD - 11/26/2018 3:37 PM CDT [facility] [place] Summary Primary Physician: BRIDGETTE MEJIAS MD-ORT Finalized Date/Time: 11/26/18 17:30:38 Pt. Name: CLAUDINE GARAY D.O.B./Sex: 1940 Male Med Rec #: [id number] Physician: MELANIE SANDOVAL MD-INT Financial #: [id number] Pt. Type: I Room/Bed: [facility]/1 Admit/Disch: 11/26/18 12:26:00 - Institution: [facility] OR PACU Case Times Entry 1 In PACU I 11/26/18 16:41:00 Ready for PACU 11/26/18 17:18:00 Discharge Discharge from PACU 11/26/18 17:18:00 I Last Modified By: Mae Meyer Rn 11/26/18 17:29:03 Finalized By: Mae Meyer Rn Document Signatures Signed By: Mae Meyer Rn 11/26/18 17:30 Electronically signed by Marybeth [facility] Conversion Reducing Salon Attendant Cerner at 08/17/2022 10:09 AM CDT documented in this encounter Plan of Treatment Not on file documented as of this encounter Visit Diagnoses Not on filedocumented in this encounter
--- OUTSIDE RECORDS SUMMARY | 2024-11-05 17:05 | XMS_ITS | Encounter Summary ---
Author Organization [employer] ([place], [place], [place], [place]) Address [address] [place] [address] Care Team Providers Care Signal Apprentice Name Role Phone Unavailable Primary Care Provider Unavailabl e Encounter Details Date Type Department Care Team (Late st Contact Info) Description 11/29/2018 Transcribed Document [facility] [place] [facility] [place] [address] ProviderDarwin MD [address] [place] [address] Social History Tobacco Use Types [...] Historical ProviderMD - 11/29/2018 2:00 AM CDT Flight Dynamicist Details Entered On: 11/29/2018 5:41 EDT Performed [...]
--- OUTSIDE RECORDS SUMMARY | 2024-11-05 17:05 | XMS_ITS | Encounter Summary ---
Author Organization [employer] ([place], [place], [place], [place]) Address [address] [place] [address] Care Team Providers Care Manufacturing Worker Name Role Phone Unavailable Primary Care Provider Unavailabl e Encounter Details Date Type Department Care Team (Late st Contact Info) Description 11/27/2018 Transcribed Document [facility] [place] Medicine [facility] [place] [address] ProviderDarwin MD [address] [place] [address] Social History Tobacco Use Types [...] - 11/27/2018 10:21 AM CDT Patient: CLAUDINE FUENTES Age: 78 years Sex: Male : 1940 Associated Diagnoses: None Author: UMA BURGESS, PharmD Pharmacy verified patient's allergies and home [...] (1) Active Reaction No Known Medication Allergies ThanksUma, PharmD/MSCR documented in this encounter Plan of Treatment Not on file documented as of this encounter Visit Diagnoses Not on filedocumented in this encounter
--- OUTSIDE RECORDS SUMMARY | 2024-11-05 17:05 | XMS_ITS | Clinical Summary ---
Author Organization [employer] ([place], [place], [place], [place]) Address [address] [place] [address] Care Team Providers Care Stone Unloader Name Role Phone Unavailable Primary Care Provider [...]
--- OUTSIDE RECORDS SUMMARY | 2024-11-05 17:05 | XMS_ITS | Encounter Summary ---
Author Organization [employer] ([place], [place], [place], [place]) Address [address] [place] [address] Care Team Providers Care Strap Folding Machine Operator Name Role Phone Unavailable Primary Care Provider Unavailabl e Encounter Details Date Type Department Care Team (Late st Contact Info) Description 11/26/2018 Transcribed Document [facility] [place] [facility] [place] [address] ProviderDarwin MD [address] [place] [address] Social History Tobacco Use Types [...] Obtained From : Patient Primary Language : Finnish Communication Barrier : None MARTI LIM RN [...] Hx Falls Immediate/Within 3 Months : No Mats Secondary Diagnosis : Yes MAST Use of Ambulatory Aid : Bed rest/Nurse assist MAST IV Therapy or IV Access : Yes Mast Gait/Transferring : Weak Mast Mental Status : Oriented to own ability Mast Fall Risk Score : 45 MAST Fall Scale Risk Level : 25-45 Medium Risk [place] Fall Interventions : Adequate lighting, Assistive devices [...] No. (Last Updated: 02/07/2018 20:15:16 EDT by AHL BANKS RN) Substance Abuse: Drug Use Hx: No. Use in Last 12 Months: No. (Last Updated: 02/07/2018 20:15:21 EDT by HAL BANKS RN) Height and Weight, Clinical Dosing Height Source : Stated Height Entry Format : [place] Height, Feet : 5 ft(Converted to: 152 cm, 60 Inch) Height, Inches : 7 Inch(Converted to: 0 ft 7 Inch, 17.78 cm) Clinical Height : 170.18 cm Weight Source : Stated [place] Body Weight : 65 kg MARTI LIM RN - 11/26/2018 18:00 EDT Estimated Weight Type of Weight Measurement Est : Dilip Weight, est lb : 197 lb(Converted to: [...]
--- OUTSIDE RECORDS SUMMARY | 2024-11-05 17:05 | XMS_ITS | Encounter Summary ---
Author Organization [employer] ([place], [place], [place], [place]) Address [address] [place] [address] Care Team Providers Care Unix Consultant Name Role Phone Unavailable Primary Care Provider Unavailabl e Encounter Details Date Type Department Care Team (Late st Contact Info) Description 11/29/2018 Transcribed Document [facility] [place] Family Medicine [address] [place] [address] ProviderDarwin MD [address] [place] [address] Social History Tobacco Use Types [...] Yoselin Vargas Rn - 11/29/2018 5:39 EDT Electronically signed by Marybeth [facility] Conversion Independent Living Specialist Ace at 08/17/2022 9:47 AM CDT documented in this encounter Plan of Treatment Not on file documented as of this encounter Visit Diagnoses Not on filedocumented in this encounter
--- OUTSIDE RECORDS SUMMARY | 2024-11-05 17:05 | XMS_ITS | Encounter Summary ---
Author Organization [employer] ([place], [place], [place], [place]) Address [address] [place] [address] Care Team Providers Care Cocktail Waitress Name Role Phone Unavailable Primary Care Provider Unavailabl e Encounter Details Date Type Department Care Team (Late st Contact Info) Description 11/27/2018 Transcribed Document [facility] [place] Family Medicine [facility] [place] [address] ProviderDarwin MD [address] [place] [address] Social History Tobacco Use Types [...] Conversion Note - Historical ProviderMD - 11/27/2018 9:28 AM CDT Treatment Intervention, OT Entered On: 11/28/2018 11:43 EDT Performed On: 11/28/2018 11:06 EDT by FLORES COTTRELL OTR/L General Information, OT Visit Type, OT [...] to assist LLE into bed [FLORES COTTRELL OTR/Delilah - 11/28/2018 11:38 EDT] ) FLORES COTTRELL OTR/L - 11/28/2018 11:38 EDT Functional MobilityComment : CGA/min transfer chair to bed , cues for safety FLORES COTTRELL OTR/Delilah - 11/28/2018 11:38 EDT Education OT Occupational Therapy Education Grid Functional Mobility Training : Returns demonstration, Needs further teaching FLORES COTTRELL OTR/Delilah - 11/28/2018 11:38 EDT Plan of Care, OT OT Tx Plan/Goals Established w Patient : Yes FLORES COTTRELL OTR/L - 11/28/2018 11:38 EDT Fdc Goals, OT Other LTG Grid Goal #1 [...] OTR/Delilah - 11/28/2018 11:38 EDT FLORES COTTRELL OTR/Delilah - 11/28/2018 11:38 EDT FLORES COTTRELL OTR/Delilah - 11/28/2018 11:38 EDT Treatment Note Subjective [...] pt reports has had meds FLORES COTTRELL OTR/Delilah - 11/28/2018 11:38 EDT Image 1 - Images currently included in the form version of this document have not been included in the text rendition version of the form. [facility] OT Charges OT Selfcare/Hm Mgmt Ea 15 Min : 1 FLORES COTTRELL OTR/Delilah - 11/28/2018 11:38 EDT Electronically signed by Marybeth, [facility] Conversion Mineralogy Teacher Cerner at 08/17/2022 10:09 AM CDT documented in this encounter Plan of Treatment Not on file documented as of this encounter Visit Diagnoses Not on filedocumented in this encounter
--- OUTSIDE RECORDS SUMMARY | 2024-11-05 17:05 | XMS_ITS | Encounter Summary ---
Author Organization [employer] ([place], [place], [place], [place]) Address [address] [place] [address] Care Team Providers Care Vehicle Sales Professional Name Role Phone Unavailable Primary Care Provider Unavailabl e Encounter Details Date Type Department Care Team (Late st Contact Info) Description 11/26/2018 Transcribed Document [facility] [place] Family Medicine [facility] [place] [address] ProviderDarwin MD [address] [place] [address] Social History Tobacco Use Types [...] Darwin ProviderMD - 11/26/2018 3:37 PM CDT [facility] Main OR IntraOp Summary Primary Physician: BRIDGETTE MEJIAS MD-ORT Finalized Date/Time: 11/27/18 11:34:13 Pt. Name: ZECHARIAHBELLACHRISTIANO.B./Sex: 1940 Male Med Rec #: [id number] Physician: MELANIE SANDOVAL MD-INT Financial #: [id number] Pt. Type: I Room/Bed: [facility]/1 Admit/Disch: 11/26/18 12:26:00 - Institution: [facility] [place] IntraOp Case Attendance Entry 1 Entry 2 Entry 3 Case Attendee BRIDGETTE MEJIAS GRAHAM, KIMBERLY, RN Nelda Mora MD-ORT Paint Spray Inspector Role Performed Surgeon/Proceduralist, Instructional Technologist, First Scrub, First First Time In 11/26/18 [...] Entry 5 Entry 6 Case Attendee BANG WYNNE PA FLEMING, SCOTT, JEAN CLAUDE SHIN, Plant Taxonomy Teacher Role Performed Director Hedis, First Anesthesiologist Fire Support Specialist Time In 11/26/18 15:20:00 11/26/18 15:20:00 11/26/18 [...] IntraOp Case Attendance Audit 11/26/18 16:32:39 Senior Project Manager: LELE Modifier: LELE 1 <+> Time [...] Intramedullary Nailing Hip Gamma 11/26/18 15:49:23 Senior Project Manager: LELE Modifier: LELE <+> 1 Procedure [...] IntraOp Case Times Audit 11/26/18 16:32:27 Senior Project Manager: LELE Modifier: LELE <+> 1 Out [...] Performed By Nelda Mora, Nelda Mora, (Scrub) Paint Spray Inspector Paint Spray Inspector Count Performed By ERICA MARSHALL RN GRAHAM, KIMBERLY, RN (RN) Last Modified By: ERICA MARSHALL RN GRAHAM, KIMBERLY, RN 11/26/18 15:52:49 11/26/18 15:52:49 [facility] IntraOp Counts Final Entry 1 Procedure Femur Intramedullary Nailing Hip Gamma Final Count Info Count Type Sponge, Sharps Counts Verification Skin Closure/end of Sequence procedure Count Results Correct, surgeon notified Counts Performed By Count Performed By Nelda Mora, (Scrub) Paint Spray Inspector Count Performed By ERICA MARSHALL RN (RN) [...] RN 11/26/18 15:49:32 [facility] IntraOp General Case Hoop Riveting Machine Operator Helper 1 Case Information OR OR 01 [facility] Case Level 1 Room Verified Yes Wound [...] R1/5 TI L SCR LAG [place] 3 . Identification [id number] 100 [id number] Description Implant Quantity 1 1 Implant Site Implant Identification Model Number Implant Identification Serial Number Implant [id number] Identification Lot Number Implant Lawtons:Lawtons [place]:Obinna Identification Orthopaedics Orthopaedics Management Professionals Name: Implant [id number] Identification Catalog Number Implant Size Implant Has an Yes Yes Expiration Date Implant Expiration 06/30/23 06/30/23 Date Wasted Radioactive Material Time Implanted Tissue Implant Continue for Tissue Implant Documentation Tissue Identification Number Graft Prep Per Management Professionals Instructions: Tissue Preparation Method: Reconstitution Solution: Reconstitution Solution Lot Number Reconstitution Solution Expiration Date: Thawing Solution Thawing Solution Lot Number Thawing Solution Expiration Date Preparation Materials, Other Preparation Materials, Other Lot Number Preparation Materials, Other Expiration Date Tissue Prepared/Processed By Management Professionals Paperwork Completed Implant Type Comment Last Modified [...] Op Sign Out Audit 11/26/18 16:32:14 Senior Project Manager: LELE Modifier: LELE <+> 1 RN [...] IntraOp Surgical Procedures Audit 11/26/18 16:32:07 Senior Project Manager: LELE Modifier: LELE 1 <*> Procedure [...] 1 X-Ray/Imaging Type Fluoroscopy Fluoroscopy Type C-Arm School Transportation Supervisor Name JEAN CLAUDE ORTIZ, Plant Taxonomy Teacher Protective Devices Yes Used Last Modified By: ERICA MARSHALL RN 11/26/18 15:55:13 Case Comments <None> Finalized By: Gwen Cueva, RN Document Signatures Signed By: ERICA MARSHALL RN 11/26/18 16:32 Gwen Cueva RN 11/27/18 11:34 Unfinalized History Date/Time Username Reason for Unfinalizing Freetext Reason for Unfinalizing 11/27/18 11:31 VALENTIN Chart Audit documented in this encounter Plan of Treatment Not on file documented as of this encounter Visit Diagnoses Not on filedocumented in this encounter
--- OUTSIDE RECORDS SUMMARY | 2024-11-05 17:05 | XMS_ITS | Encounter Summary ---
Author Organization [employer] ([place], [place], [place], [place]) Address [address] [place] [address] Care Team Providers Care Rock Singer Name Role Phone Unavailable Primary Care Provider Unavailabl e Encounter Details Date Type Department Care Team (Late st Contact Info) Description 11/29/2018 Transcribed Document [facility] [place] [address] [place] [address] ProviderDarwin MD [address] [place] [address] Social History Tobacco Use Types [...] - 11/29/2018 5:35 EDT Electronically signed by Vicente Rueda Conversion Secretary [employer] at 08/17/2022 9:54 AM CDT documented in this encounter Plan of Treatment Not on file documented as of this encounter Visit Diagnoses Not on filedocumented in this encounter
--- OUTSIDE RECORDS SUMMARY | 2024-11-05 17:05 | XMS_ITS | Data Portability ---
Author Organization [facility] Address [address] [place] [address] Care Team Providers Care Polisher Implant Name Role Phone [facility] Referring Provider [phone] BRIDGETTE MEJIAS Referring Provider [phone] Assessment Encounter Date Assessment Date Assessment LastModified by Organization Details LastModified Time 06/24/2023 06/24/2023 Mr. Fuentes has multiple medical problems and recently had a fall in his home with no major injuries fortunately but he continued to develop chest pains and some shortness of breath and coughing after the fall so he went to emergency room 06/16/23 at [facility]. He was found to not have [...] from advancing. Mr. Fuentes was admitted to [facility] for rehabilitation in January 2020 following unfortunate [...] prefer to not have to travel to [place]. 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 In January of 2019 we were finally [...] hospital post-operatively and was transferred back to [facility] on 03/18/20. His medications are reconciled and are primarily ordered through [facility]. A list of medications are provided to him. Vaccines are reviewed and updated with the covid vaccine today. We continue to encourage healthy lifestyle and safety to guard against falling. vidal Not available 02/14/2024 07:21:59 07/09/2024 07/09/2024 Mr. Fuentes returned home yesterday from a rehabilitation facility, [place]. His medications were changed and they are [...] a dose of the Midodrin. Apparently the fci was simply dosing it three times daily. [...] Lab TSH, serum or plasma 2024 025 [facility], [address], [place], [address], 13:25:39 levetiracet am, serum 2024 025 [facility], [address], [place], [address], 13:25:39 valproic acid, total, serum 2024 025 [facility], [address], [place], [address], 5 13:25:40 CMP, serum or plasma 2024 025 R[facility], [address], [place], [address], 5 13:25:38 levetiracet am, serum 2024 025 RICHARD [facility], [address], [place], [address], 5 12:32:27 CMP, serum or plasma 2024 025 RICHARD [facility], [address], [place], [address], 5 12:32:26 levetiracet am, serum 2023 024 [email or web address] n5 [facility], [address], [place], [address], 5 15:07:08 TSH, serum or plasma 2023 024 [email or web address] n5 [facility], [address], [place], [address], 5 16:22:23 BMP, serum or plasma 2023 024 [email or web address] n5 [facility], [address], [place], [address], 5 16:22:23 culture, aerobic + anaerobic 2023 024 RICHARD [facility], [address], [place], [address], 4 14:51:23 Referral home health referral 2023 024 vidal [place], [address], [facility] [address], [place], [address], 4 12:49:46 Procedures None recorded. Surgeries None recorded. Imaging None recorded. Medication Orders ipratropium bromide 42 mcg (0.06 %) nasal spray 2024 025 [facility], [address] [place] [address], [address], 5 15:37:37 mupirocin 2 % topical ointment 2024 025 [place] [facility], [address] [place], [place], [id number], 5 15:37:42 nystatin 100,000 unit/gram topical ointment 2024 025 [facility] [facility], [address], [place], [place], [id number], 5 15:37:40 nystatin 100,000 unit/gram topical cream 2024 025 [facility], [address] [place] [address], [address], 5 15:37:36 furosemide 20 mg tablet 2024 025 [place] [facility]09, [address] [place], [id number], 5 16:05:59 metoprolol succinate ER 25 mg tablet,exte nded release 24 hr 2024 025 [place] [facility]81699, [address] [place], [place], [id number], 5 16:06:00 midodrine 5 mg tablet 2024 025 [facility] [facility], [address] [place], [id number], 5 16:05:59 levothyroxi ne 50 mcg tablet 2023 024 [facility], [address] [place] [address], [address], 4 14:43:20 zinc (glycinate) 20 mg capsule 2023 024 Not available 4 17:15:19 Vitamin C 250 mg tablet 2023 024 Not available 4 17:15:19 azithromyci n 250 mg tablet 2023 024 [facility] #05672, [address] [place], [id number], 4 14:02:48 azithromyci n 250 mg tablet 2023 024 [facility], [address] [facility], [place], [address], 4 14:02:56 levothyroxi ne 25 mcg tablet 2023 024 [facility], [address] [place] [address], [address], 5 07:42:31 doxycycline monohydrate 100 mg capsule 2023 024 [facility] #93074, [address] [place], [id number], 4 15:07:12 levofloxaci n 500 mg tablet 2023 024 [facility] #11324, [address] [place], [id number], 4 15:08:06 Prolia 60 mg/mL subcutaneou s [...] KENY W/GRA M STAIN Micro Numbe r: [id number] Test Statu s: Final Speci men Sourc e: Wound (site not speci fied) Speci men Quali ty: Adequ ate Gram Stain : Few Gram posit jacqueline cocci Resul t: Heavy growt h of Fineg oldia magna Not Available [facility] [place] [facility] [address] [facility], [place], [address], 06/27/2023 14:51:23 06/24/19 24 06/27/2023 CULTU RE, AEROB IC AND ANAER OBIC W/GRA M STAIN culture, aerobic bacteria abnormal CULTU RE, AEROB IC BACTE KENY Micro Numbe r: [id number] Test Statu s: Final Speci men Sourc [...] cefaz britney. Not Available [facility] [place] [facility] [address] [facility], [place], [address], 06/27/2023 14:51:23 07/28/19 24 07/29/2023 LIPID PANEL , STAND MIKAYLA cholesterol, total 155 mg/dL <200 normal Not Available [facility] [place] [facility] [address], [place], [address], 07/29/2023 11:43:11 07/28/19 24 07/29/2023 LIPID PANEL , STAND MIKAYLA HDL cholesterol 65 mg/dL > or = 40 normal Not Available [facility] [place] [facility] [address], [place], [address], 07/29/2023 11:43:11 07/28/19 24 07/29/2023 LIPID PANEL , STAND MIKAYLA triglyceride s 67 mg/dL <150 normal Not Available [facility] [place] [facility] [address], [place], [address], 07/29/2023 11:43:11 07/28/19 24 07/29/2023 LIPID PANEL [...] 310(1 9): 2061- 2068 (http ://ed ucati [email or web address] [email or web address]. com/f aq/FA Q164) Not Available [facility] [place] [facility] [address], [place], [address], 07/29/2023 11:43:11 07/28/19 24 07/29/2023 LIPID PANEL , STAND MIKAYLA chol/HDLC ratio 2.4 (calc ) <5.0 normal Not Available [facility] [place] [facility] [address], [place], [address], 07/29/2023 11:43:11 07/28/19 24 07/29/2023 LIPID PANEL , STAND MIKAYLA non HDL cholesterol 90 mg/dL _(zully c) <130 normal For patie nts with diabe sherri plus 1 major ASCVD risk facto r, treat ing to a non-H DL-C goal of <100 mg/dL (LDL- C of <70 mg/dL ) is consi dered a thera peuti c optio n. Not Available [facility] [place] [facility] [address], [place], [address], 07/29/2023 11:43:11 07/28/19 24 07/29/2023 COMPR EHENS JACQUELINE METAB OLIC PANEL glucose 81 mg/dL 65-99 normal Fasti ng refer ence inter nkechi Not Available [facility] [place] [facility] [address] [facility] [place], [address], 07/29/2023 11:43:12 07/28/19 24 07/29/2023 COMPR EHENS JACQUELINE METAB OLIC PANEL urea nitrogen (BUN) 16 mg/dL 7-25 normal Not Available [facility] [address] [place], [address], 07/29/2023 11:43:12 07/28/19 24 07/29/2023 COMPR EHENS JACQUELINE METAB OLIC PANEL creatinine 1.08 mg/dL 0.70-1 .22 normal Not Available [facility] [address] [facility] [place], [address], 07/29/2023 11:43:12 07/28/19 24 07/29/2023 COMPR EHENS JACQUELINE METAB OLIC PANEL eGFR 69 mL/mi n/1.7 3m2 > or = 60 normal Not Available [facility] [address] [facility] [place], [address], 07/29/2023 11:43:12 07/28/19 24 07/29/2023 COMPR EHENS JACQUELINE METAB OLIC PANEL BUN/creatini ne ratio SEE NOTE: (calc ) 6-22 Not Repor cindy: BUN and Creat inine are withi n refer ence range . Not Available [facility] [address] [facility] [place], [address], 07/29/2023 11:43:12 07/28/19 24 07/29/2023 COMPR EHENS JACQUELINE METAB OLIC PANEL sodium 131 mmol/ L 135-14 6 low Not Available [facility] [address] [facility] [place], [address], 07/29/2023 11:43:12 07/28/19 24 07/29/2023 COMPR EHENS JACQUELINE METAB OLIC PANEL potassium 4.6 mmol/ L 3.5-5. 3 normal Not Available [facility] [place] [facility] [address] [facility] [place], [address], 07/29/2023 11:43:12 07/28/19 24 07/29/2023 COMPR EHENS JACQUELINE METAB OLIC PANEL chloride 96 mmol/ L 98-110 low Not Available [facility] [address] [place], [address], 07/29/2023 11:43:12 07/28/19 24 07/29/2023 COMPR EHENS JACQUELINE METAB OLIC PANEL carbon dioxide 24 mmol/ L 20-32 normal Not Available [facility] [address] [facility] [place], [address], 07/29/2023 11:43:12 07/28/19 24 07/29/2023 COMPR EHENS JACQUELINE METAB OLIC PANEL calcium 9.0 mg/dL 8.6-10 .3 normal Not Available [facility] [address] [facility] [place], [address], 07/29/2023 11:43:12 07/28/19 24 07/29/2023 COMPR EHENS JACQUELINE METAB OLIC PANEL protein, total 6.6 g/dL 6.1-8. 1 normal Not Available [facility] [address] [place] [address], [address], 07/29/2023 11:43:12 07/28/19 24 07/29/2023 COMPR EHENS JACQUELINE METAB OLIC PANEL albumin 3.5 g/dL 3.6-5. 1 low Not Available [facility] [facility] [place], [address], 07/29/2023 11:43:12 07/28/19 24 07/29/2023 COMPR EHENS JACQUELINE METAB OLIC PANEL globulin 3.1 g/dL_ (calc ) 1.9-3. 7 normal Not Available [email or web address] [address] [place], [address], 07/29/2023 11:43:12 07/28/19 24 07/29/2023 COMPR EHENS JACQUELINE METAB OLIC PANEL albumin/glob ulin ratio 1.1 (calc ) 1.0-2. 5 normal Not Available [facility] [address] [facility] [place], [address], 07/29/2023 11:43:12 07/28/19 24 07/29/2023 COMPR EHENS JACQUELNIE METAB OLIC PANEL bilirubin, total 0.5 mg/dL 0.2-1. 2 normal Not Available [facility] [address] [facility] [place], [address], 07/29/2023 11:43:12 07/28/19 24 07/29/2023 COMPR EHENS JACQUELINE METAB OLIC PANEL alkaline phosphatase 52 U/L 35-144 normal Not Available [facility] [place] [facility] [address] [facility] [place], [address], 07/29/2023 11:43:12 07/28/19 24 07/29/2023 COMPR EHENS JACQUELINE METAB OLIC PANEL AST 25 U/L 10-35 normal Not Available [email or web address] [address] [facility] [place], [address], 07/29/2023 11:43:12 07/28/19 24 07/29/2023 COMPR EHENS JACQUELINE METAB OLIC PANEL ALT 12 U/L 9-46 normal Not Available [facility] [address] [place], [address], 07/29/2023 11:43:12 07/28/19 24 07/29/2023 TSH TSH 5.27 mIU/L 0.40-4 .50 high Not Available [facility] [address] [facility] [place], [address], 07/29/2023 11:43:13 07/28/19 24 07/29/2023 CBC (INCL UDES DIFF/ PLT) white blood cell count 6.2 thous and/u L 3.8-10 .8 normal Not Available [facility] [place] [facility] [address], [place], [address], 07/29/2023 11:43:13 07/28/19 24 07/29/2023 CBC (INCL UDES DIFF/ PLT) red blood cell count 4.14 rodrigo on/uL 4.20-5 .80 low Not Available [facility] [place] [facility] [address], [place], [address], 07/29/2023 11:43:13 07/28/19 24 07/29/2023 CBC (INCL UDES DIFF/ PLT) hemoglobin 13.9 g/dL 13.2-1 7.1 normal Not Available [facility] [place] [facility] [address], [place], [address], 07/29/2023 11:43:13 07/28/19 24 07/29/2023 CBC (INCL UDES DIFF/ PLT) hematocrit 40.4 % 38.5-5 0.0 normal Not Available [facility] [place] [facility] [address], [place], [address], 07/29/2023 11:43:13 07/28/19 24 07/29/2023 CBC (INCL UDES DIFF/ PLT) MCV 97.6 fL 80.0-1 00.0 normal Not Available [facility] [place] [facility] [address], [place], [address], 07/29/2023 11:43:13 07/28/19 24 07/29/2023 CBC (INCL UDES DIFF/ PLT) MCH 33.6 pg 27.0-3 3.0 high Not Available [facility] [place] [facility] [address], [place], [address], 07/29/2023 11:43:13 07/28/19 24 07/29/2023 CBC (INCL UDES DIFF/ PLT) MCHC 34.4 g/dL 32.0-3 6.0 normal Not Available [facility] [place] [facility] [address], [place], [address], 07/29/2023 11:43:13 07/28/19 24 07/29/2023 CBC (INCL UDES DIFF/ PLT) RDW 14.3 % 11.0-1 5.0 normal Not Available [facility] [place] [facility] [address], [place], [address], 07/29/2023 11:43:13 07/28/19 24 07/29/2023 CBC (INCL UDES DIFF/ PLT) platelet count 197 thous and/u L 140-40 0 normal Not Available [facility] [place] [facility] [address], [place], [address], 07/29/2023 11:43:13 07/28/19 24 07/29/2023 CBC (INCL UDES DIFF/ PLT) MPV 10.8 fL 7.5-12 .5 normal Not Available [facility] [place] [facility] [address], [place], [address], 07/29/2023 11:43:13 07/28/19 24 07/29/2023 CBC (INCL UDES DIFF/ PLT) absolute neutrophils 3081 cells /uL 1500-7 800 normal Not Available [facility] [place] [facility] [address], [place], [address], 07/29/2023 11:43:13 07/28/19 24 07/29/2023 CBC (INCL UDES DIFF/ PLT) absolute lymphocytes 2263 cells /uL 850-39 00 normal Not Available [facility] [place] [facility] [address], [place], [address], 07/29/2023 11:43:13 07/28/19 24 07/29/2023 CBC (INCL UDES DIFF/ PLT) absolute monocytes 707 cells /uL 200-95 0 normal Not Available [facility] [place] [facility] [address], [place], [address], 07/29/2023 11:43:13 07/28/19 24 07/29/2023 CBC (INCL UDES DIFF/ PLT) absolute eosinophils 130 cells /uL 15-500 normal Not Available [facility] [place] [facility] [address], [place], [address], 07/29/2023 11:43:13 07/28/19 24 07/29/2023 CBC (INCL UDES DIFF/ PLT) absolute basophils 19 cells /uL 0-200 normal Not Available [facility] [place] [facility] [address], [place], [address], 07/29/2023 11:43:13 07/28/19 24 07/29/2023 CBC (INCL UDES DIFF/ PLT) neutrophils 49.7 % normal Not Available [facility] [place] [facility] [address], [place], [address], 07/29/2023 11:43:13 07/28/19 24 07/29/2023 CBC (INCL UDES DIFF/ PLT) lymphocytes 36.5 % normal Not Available [facility] [place] [facility] [address], [place], [address], 07/29/2023 11:43:13 07/28/19 24 07/29/2023 CBC (INCL UDES DIFF/ PLT) monocytes 11.4 % normal Not Available [facility] [place] [facility] [address], [place], [address], 07/29/2023 11:43:13 07/28/19 24 07/29/2023 CBC (INCL UDES DIFF/ PLT) eosinophils 2.1 % normal Not Available [facility] [place] [facility] [address], [place], [address], 07/29/2023 11:43:13 07/28/19 24 07/29/2023 CBC (INCL UDES DIFF/ PLT) basophils 0.3 % normal Not Available [facility] [place] [facility] [address] [place], [address], 07/29/2023 11:43:13 07/28/19 24 07/29/2023 EXTRA SPECI MEN extra tube received An extra speci men was recei ryan with no test reque sted. The speci men will be maint ained in stora ge in case addit ional testi ng is neede dCatalina Kolb e call the nicola bob [facility] for anthony gary . Not Available [facility] [place] [facility] [address] [place], [address], 07/29/2023 11:43:14 07/28/19 24 07/29/2023 EXTRA SPECI MEN specimen type received PLASMA , VIAL POUR-O FF Not Available [facility] [place] [facility] [address] [place], [address], 07/29/2023 11:43:14 10/06/19 24 10/07/2023 BASIC METAB OLIC PANEL glucose 73 mg/dL 65-99 normal Fasti ng refer ence inter nkechi Not Available [facility] [place] [facility] [address] [place], [address], 10/07/2023 12:34:39 10/06/19 24 10/07/2023 BASIC METAB OLIC PANEL urea nitrogen (BUN) 23 mg/dL 7-25 normal Not Available [facility] [place] [facility] [address] [place], [address], 10/07/2023 12:34:39 10/06/19 24 10/07/2023 BASIC METAB OLIC PANEL creatinine 1.22 mg/dL 0.70-1 .22 normal Not Available [facility] [place] [facility] [address] [place], [address], 10/07/2023 12:34:39 10/06/19 24 10/07/2023 BASIC METAB OLIC PANEL eGFR 60 mL/mi n/1.7 3m2 > or = 60 normal Not Available [facility] [address] [place], [address], 10/07/2023 12:34:39 10/06/19 24 10/07/2023 BASIC METAB OLIC PANEL BUN/creatini ne ratio SEE NOTE: (calc ) 6-22 Not Repor cindy: BUN and Creat inine are withi n refer ence range . Not Available [facility] [place] [facility] [address] [place], [address], 10/07/2023 12:34:39 10/06/19 24 10/07/2023 BASIC METAB OLIC PANEL sodium 131 mmol/ L 135-14 6 low Not Available [facility] [place] [facility] [address] [place], [address], 10/07/2023 12:34:39 10/06/19 24 10/07/2023 BASIC METAB OLIC PANEL potassium 4.3 mmol/ L 3.5-5. 3 normal Not Available [facility] [address] [place], [address], 10/07/2023 12:34:39 10/06/19 24 10/07/2023 BASIC METAB OLIC PANEL chloride 96 mmol/ L 98-110 low Not Available [facility] [place] [facility] [address] [place], [address], 10/07/2023 12:34:39 10/06/19 24 10/07/2023 BASIC METAB OLIC PANEL carbon dioxide 28 mmol/ L 20-32 normal Not Available [facility] [address] [place], [address], 10/07/2023 12:34:39 10/06/19 24 10/07/2023 BASIC METAB OLIC PANEL calcium 8.9 mg/dL 8.6-10 .3 normal Not Available [facility] [place] [facility] [address] [place], [address], 10/07/2023 12:34:39 10/06/19 24 10/07/2023 CBC (INCL UDES DIFF/ PLT) white blood cell count 6.7 thous and/u L 3.8-10 .8 normal Not Available [facility] [place] [facility] [address] [place], [address], 10/07/2023 12:34:40 10/06/19 24 10/07/2023 CBC (INCL UDES DIFF/ PLT) red blood cell count 3.89 rodrigo on/uL 4.20-5 .80 low Not Available [facility] [place] [facility] [address] [place], [address], 10/07/2023 12:34:40 10/06/19 24 10/07/2023 CBC (INCL UDES DIFF/ PLT) hemoglobin 13.0 g/dL 13.2-1 7.1 low Not Available [facility] [place] [facility] [address] [place], [address], 10/07/2023 12:34:40 10/06/19 24 10/07/2023 CBC (INCL UDES DIFF/ PLT) hematocrit 38.3 % 38.5-5 0.0 low Not Available [facility] [place] [facility] [address] [place], [address], 10/07/2023 12:34:40 10/06/19 24 10/07/2023 CBC (INCL UDES DIFF/ PLT) MCV 98.5 fL 80.0-1 00.0 normal Not Available [facility] [place] [facility] [address] [place], [address], 10/07/2023 12:34:40 10/06/19 24 10/07/2023 CBC (INCL UDES DIFF/ PLT) MCH 33.4 pg 27.0-3 3.0 high Not Available [facility] [place] [facility] [address] [place], [address], 10/07/2023 12:34:40 10/06/19 24 10/07/2023 CBC (INCL UDES DIFF/ PLT) MCHC 33.9 g/dL 32.0-3 6.0 normal Not Available [facility] [place] [facility] [address] [place], [address], 10/07/2023 12:34:40 10/06/19 24 10/07/2023 CBC (INCL UDES DIFF/ PLT) RDW 13.3 % 11.0-1 5.0 normal Not Available [facility] [place] [facility] [address] [place], [address], 10/07/2023 12:34:40 10/06/19 24 10/07/2023 CBC (INCL UDES DIFF/ PLT) platelet count 147 thous and/u L 140-40 0 normal Not Available [facility] [place] [facility] [address] [place], [address], 10/07/2023 12:34:40 10/06/19 24 10/07/2023 CBC (INCL UDES DIFF/ PLT) MPV 10.2 fL 7.5-12 .5 normal Not Available [facility] [place] [facility] [address], [place], [address], 10/07/2023 12:34:40 10/06/19 24 10/07/2023 CBC (INCL UDES DIFF/ PLT) absolute neutrophils 3678 cells /uL 1500-7 800 normal Not Available [facility] [address], [place], [address], 10/07/2023 12:34:40 10/06/19 24 10/07/2023 CBC (INCL UDES DIFF/ PLT) absolute lymphocytes 1956 cells /uL 850-39 00 normal Not Available [facility] [place] [facility] [address], [place], [address], 10/07/2023 12:34:40 10/06/19 24 10/07/2023 CBC (INCL UDES DIFF/ PLT) absolute monocytes 911 cells /uL 200-95 0 normal Not Available [facility] [place] [facility] [address], [place], [address], 10/07/2023 12:34:40 10/06/19 24 10/07/2023 CBC (INCL UDES DIFF/ PLT) absolute eosinophils 127 cells /uL 15-500 normal Not Available [facility] [place] [facility] [address], [place], [address], 10/07/2023 12:34:40 10/06/19 24 10/07/2023 CBC (INCL UDES DIFF/ PLT) absolute basophils 27 cells /uL 0-200 normal Not Available [facility] [place] [facility] [address], [place], [address], 10/07/2023 12:34:40 10/06/19 24 10/07/2023 CBC (INCL UDES DIFF/ PLT) neutrophils 54.9 % normal Not Available [facility] [place] [facility] [address], [place], [address], 10/07/2023 12:34:40 10/06/19 24 10/07/2023 CBC (INCL UDES DIFF/ PLT) lymphocytes 29.2 % normal Not Available [facility] [place] [facility] [address], [place], [address], 10/07/2023 12:34:40 10/06/19 24 10/07/2023 CBC (INCL UDES DIFF/ PLT) monocytes 13.6 % normal Not Available [facility] [place] [facility] [address], [place], [address], 10/07/2023 12:34:40 10/06/19 24 10/07/2023 CBC (INCL UDES DIFF/ PLT) eosinophils 1.9 % normal Not Available [facility] [place] [facility] [address] [facility] [place], [address], 10/07/2023 12:34:40 10/06/19 24 10/07/2023 CBC (INCL UDES DIFF/ PLT) basophils 0.4 % normal Not Available [facility] [place] [facility] [address] [facility] [place], [address], 10/07/2023 12:34:40 10/06/19 24 10/07/2023 VALPR OIC ACID valproic acid 102.0 mg/L 50.0-1 00.0 high Not Available [facility] [address] [place], [address], 10/07/2023 12:34:40 02/06/20 24 02/09/2024 LIPID PANEL , STAND MIKAYLA cholesterol, total 158 mg/dL <200 normal Not Available [facility] [place] [facility] [address] [facility] [place], [address], 02/09/2024 10:25:29 02/06/20 24 02/09/2024 LIPID PANEL , STAND MIKAYLA HDL cholesterol 71 mg/dL > or = 40 normal Not Available [facility] [address] [facility] [place], [address], 02/09/2024 10:25:29 02/06/20 24 02/09/2024 LIPID PANEL , STAND MIKAYLA triglyceride s 66 mg/dL <150 normal Not Available [facility] [address] [facility] [place], [address], 02/09/2024 10:25:29 02/06/20 24 02/09/2024 LIPID PANEL [...] 310(1 9): 2061- 2068 (http ://ed ucati [email or web address] [place]/f aq/FA [email or web address]) Not Available [facility] [address], [place], [address], 02/09/2024 10:25:29 02/06/20 24 02/09/2024 LIPID PANEL , STAND MIKAYLA chol/HDLC ratio 2.2 (calc ) <5.0 normal Not Available [facility] [facility] - [place] [facility] [address], [place], [address], 02/09/2024 10:25:29 02/06/20 24 02/09/2024 LIPID PANEL , STAND MIKAYLA non HDL cholesterol 87 mg/dL _(zully c) <130 normal For patie nts with diabe sherri plus 1 major ASCVD risk facto r, treat ing to a non-H DL-C goal of <100 mg/dL (LDL- C of <70 mg/dL ) is consi dered a thera peuti c optio n. Not Available [facility] [place] [facility] [address], [place], [address], 02/09/2024 10:25:29 02/06/20 24 02/09/2024 COMPR EHENS JACQUELINE METAB OLIC PANEL glucose 82 mg/dL 65-99 normal Fasti ng refer ence inter nkechi Not Available [facility] [place] [facility] [address], [place], [address], 02/09/2024 10:25:30 02/06/20 24 02/09/2024 COMPR EHENS JACQUELINE METAB OLIC PANEL urea nitrogen (BUN) 19 mg/dL 7-25 normal Not Available [facility] [address] [place], [address], 02/09/2024 10:25:30 02/06/20 24 02/09/2024 COMPR EHENS JACQUELINE METAB OLIC PANEL creatinine 1.23 mg/dL 0.70-1 .22 high Not Available [facility] [address] [place], [address], 02/09/2024 10:25:30 02/06/20 24 02/09/2024 COMPR EHENS JACQUELINE METAB OLIC PANEL eGFR 59 mL/mi n/1.7 3m2 > or = 60 low Not Available [facility] [address] [place], [address], 02/09/2024 10:25:30 02/06/20 24 02/09/2024 COMPR EHENS JACQUELINE METAB OLIC PANEL BUN/creatini ne ratio 15 (calc ) 6-22 normal Not Available [facility] [address] [place], [address], 02/09/2024 10:25:30 02/06/20 24 02/09/2024 COMPR EHENS JACQUELINE METAB OLIC PANEL sodium 129 mmol/ L 135-14 6 low Not Available [facility] [address] [place], [address], 02/09/2024 10:25:30 02/06/20 24 02/09/2024 COMPR EHENS JACQUELINE METAB OLIC PANEL potassium 4.2 mmol/ L 3.5-5. 3 normal Not Available [facility] [address] [place], [address], 02/09/2024 10:25:30 02/06/20 24 02/09/2024 COMPR EHENS JACQUELINE METAB OLIC PANEL chloride 95 mmol/ L 98-110 low Not Available [facility] [address] [place], [address], 02/09/2024 10:25:30 02/06/20 24 02/09/2024 COMPR EHENS JACQUELINE METAB OLIC PANEL carbon dioxide 22 mmol/ L 20-32 normal Not Available [facility] [address] [place], [address], 02/09/2024 10:25:30 02/06/20 24 02/09/2024 COMPR EHENS JACQUELINE METAB OLIC PANEL calcium 9.2 mg/dL 8.6-10 .3 normal Not Available [facility] [address] [place], [address], 02/09/2024 10:25:30 02/06/20 24 02/09/2024 COMPR EHENS JACQUELINE METAB OLIC PANEL protein, total 6.6 g/dL 6.1-8. 1 normal Not Available [facility] [address] [place], [address], 02/09/2024 10:25:30 02/06/20 24 02/09/2024 COMPR EHENS JACQUELINE METAB OLIC PANEL albumin 3.7 g/dL 3.6-5. 1 normal Not Available [facility] [address] [place], [address], 02/09/2024 10:25:30 02/06/20 24 02/09/2024 COMPR EHENS JACQUELINE METAB OLIC PANEL globulin 2.9 g/dL_ (calc ) 1.9-3. 7 normal Not Available [facility] [address] [place], [address], 02/09/2024 10:25:30 02/06/20 24 02/09/2024 COMPR EHENS JACQUELINE METAB OLIC PANEL albumin/glob ulin ratio 1.3 (calc ) 1.0-2. 5 normal Not Available [facility] [email or web address] [facility] [address] [facility] [place], [address], 02/09/2024 10:25:30 02/06/20 24 02/09/2024 COMPR EHENS JACQUELINE METAB OLIC PANEL bilirubin, total 0.5 mg/dL 0.2-1. 2 normal Not Available [facility] [email or web address] [facility] [address] [facility] [place], [address], 02/09/2024 10:25:30 02/06/20 24 02/09/2024 COMPR EHENS JACQUELINE METAB OLIC PANEL alkaline phosphatase 37 U/L 35-144 normal Not Available [facility] [address] [place], [address], 02/09/2024 10:25:30 02/06/20 24 02/09/2024 COMPR EHENS JACQUELINE METAB OLIC PANEL AST 23 U/L 10-35 normal Not Available [facility] [email or web address] [facility] [address] [place], [address], 02/09/2024 10:25:30 02/06/20 24 02/09/2024 COMPR EHENS JACQUELINE METAB OLIC PANEL ALT 11 U/L 9-46 normal Not Available [facility] [address] [place], [address], 02/09/2024 10:25:30 02/06/20 24 02/09/2024 TSH TSH 5.03 mIU/L 0.40-4 .50 high Not Available [facility] [address] [place], [address], 02/09/2024 10:25:31 02/06/20 24 02/09/2024 CBC (INCL UDES DIFF/ PLT) white blood cell count 6.9 thous and/u L 3.8-10 .8 normal Not Available [facility] [place] [facility] [address] [place], [address], 02/09/2024 10:25:31 02/06/20 24 02/09/2024 CBC (INCL UDES DIFF/ PLT) red blood cell count 4.36 rodrigo on/uL 4.20-5 .80 normal Not Available [facility] [address] [place], [address], 02/09/2024 10:25:31 02/06/20 24 02/09/2024 CBC (INCL UDES DIFF/ PLT) hemoglobin 13.8 g/dL 13.2-1 7.1 normal Not Available [facility] [address] [place], [address], 02/09/2024 10:25:31 02/06/20 24 02/09/2024 CBC (INCL UDES DIFF/ PLT) hematocrit 42.1 % 38.5-5 0.0 normal Not Available [facility] [address] [place], [address], 02/09/2024 10:25:31 02/06/20 24 02/09/2024 CBC (INCL UDES DIFF/ PLT) MCV 96.6 fL 80.0-1 00.0 normal Not Available [facility] [place], [address], 02/09/2024 10:25:31 02/06/20 24 02/09/2024 CBC (INCL UDES DIFF/ PLT) MCH 31.7 pg 27.0-3 3.0 normal Not Available [facility] [address] [place], [address], 02/09/2024 10:25:31 02/06/20 24 02/09/2024 CBC (INCL [...] condi tion. Not Available [facility] [place] [facility] [address] [facility], [place], [address], 02/09/2024 10:25:31 02/06/20 24 02/09/2024 CBC (INCL UDES DIFF/ PLT) RDW 14.4 % 11.0-1 5.0 normal Not Available [facility] [place] [facility] [address] [facility], [place], [address], 02/09/2024 10:25:31 02/06/20 24 02/09/2024 CBC (INCL UDES DIFF/ PLT) platelet count 184 thous and/u L 140-40 0 normal Not Available [facility] [place] [facility] [address] [facility], [place], [address], 02/09/2024 10:25:31 02/06/20 24 02/09/2024 CBC (INCL UDES DIFF/ PLT) MPV 11.0 fL 7.5-12 .5 normal Not Available [facility] [place] [facility] [address] [facility], [place], [address], 02/09/2024 10:25:31 02/06/20 24 02/09/2024 CBC (INCL UDES DIFF/ PLT) absolute neutrophils 3271 cells /uL 1500-7 800 normal Not Available [facility] [place] [facility] [address] [facility], [place], [address], 02/09/2024 10:25:31 02/06/20 24 02/09/2024 CBC (INCL UDES DIFF/ PLT) absolute lymphocytes 2870 cells /uL 850-39 00 normal Not Available [facility] [place] [facility] [address], [place], [address], 02/09/2024 10:25:31 02/06/2002/09/2024 CBC (INCL UDES DIFF/ PLT) absolute monocytes 649 cells /uL 200-95 0 normal Not Available [facility] [place] [facility] [address], [place], [address], 02/09/2024 10:25:31 02/06/20 24 02/09/2024 CBC (INCL UDES DIFF/ PLT) absolute eosinophils 90 cells /uL 15-500 normal Not Available [facility] [place] [facility] [address], [place], [address], 02/09/2024 10:25:31 02/06/20 24 02/09/2024 CBC (INCL UDES DIFF/ PLT) absolute basophils 21 cells /uL 0-200 normal Not Available [facility] [place] [facility] [address], [place], [address], 02/09/2024 10:25:31 02/06/20 24 02/09/2024 CBC (INCL UDES DIFF/ PLT) neutrophils 47.4 % normal Not Available [facility] [place] [facility] [address], [place], [address], 02/09/2024 10:25:31 02/06/20 24 02/09/2024 CBC (INCL UDES DIFF/ PLT) lymphocytes 41.6 % normal Not Available [facility] [place] [facility] [address], [place], [address], 02/09/2024 10:25:31 02/06/20 24 02/09/2024 CBC (INCL UDES DIFF/ PLT) monocytes 9.4 % normal Not Available [facility] [place] [facility] [address], [place], [address], 02/09/2024 10:25:31 10/07/02/09/2024 CBC (INCL UDES DIFF/ PLT) eosinophils 1.3 % normal Not Available [facility] [place] [facility] [address] [place], [address], 02/09/2024 10:25:31 02/06/20 24 02/09/2024 CBC (INCL UDES DIFF/ PLT) basophils 0.3 % normal Not Available [facility] [place] [facility] [address] [place], [address], 02/09/2024 10:25:31 02/06/20 24 02/09/2024 LEVET IRACE FOWLER levetiraceta m 87.7 mcg/m L high Refer ence Range : 12.0- 46.0 Toxic level is not well estab lishe d. Inter preta tion shoul d inclu de a clini zully evalu ation . For addit ional infor glen babcock e refer to http: //[facility] ar swartz.Que stDia gnost ics.c om/fa [...] for clini zully purpo ses. Not Available [facility] [place] [facility] [address] [place], [address], 02/09/2024 10:25:32 02/06/2002/09/2024 VALPR OIC ACID valproic acid 113.2 mg/L 50.0-1 00.0 high Not Available [facility] [place] [facility] [address] [place], [address], 02/09/2024 10:25:33 07/10/19 25 07/13/2024 COMPR EHENS JACQUELINE METAB OLIC PANEL glucose 122 mg/dL 65-99 high Fasti ng refer ence inter nkechi For someo ne witho ut known diabe sherri, a gluco se value betwe en 100 and 125 mg/dL is consi stent with predi abete s and shoul d be confi rmed with a follo w-up test. Not Available [facility] [address] [place], [address], 07/13/2024 12:32:26 07/10/19 25 07/13/2024 COMPR EHENS JACQUELINE METAB OLIC PANEL urea nitrogen (BUN) 17 mg/dL 7-25 normal Not Available [facility] [address] [place], [address], 07/13/2024 12:32:26 07/10/19 25 07/13/2024 COMPR EHENS JACQUELINE METAB OLIC PANEL creatinine 1.17 mg/dL 0.70-1 .22 normal Not Available [facility] [address] [place], [address], 07/13/2024 12:32:26 07/10/19 25 07/13/2024 COMPR EHENS JACQUELINE METAB OLIC PANEL eGFR 62 mL/mi n/1.7 3m2 > or = 60 normal Not Available [employer] [address] [place], [address], 07/13/2024 12:32:26 07/10/19 25 07/13/2024 COMPR EHENS JACQUELINE METAB OLIC PANEL BUN/creatini ne ratio SEE NOTE: (calc ) 6-22 Not Repor cindy: BUN and Creat inine are withi n refer ence range . Not Available [facility] [address] [place], [address], 07/13/2024 12:32:26 07/10/19 25 07/13/2024 COMPR EHENS JACQUELINE METAB OLIC PANEL sodium 134 mmol/ L 135-14 6 low Not Available [employer] [facility] [address] [facility] [place], [address], 07/13/2024 12:32:26 07/10/19 25 07/13/2024 COMPR EHENS JACQUELINE METAB OLIC PANEL potassium 4.2 mmol/ L 3.5-5. 3 normal Not Available [facility] [address] [place], [address], 07/13/2024 12:32:26 07/10/19 25 07/13/2024 COMPR EHENS JACQUELINE METAB OLIC PANEL chloride 98 mmol/ L 98-110 normal Not Available [facility] [address] [place] [address], [address], 07/13/2024 12:32:26 07/10/19 25 07/13/2024 COMPR EHENS JACQUELINE METAB OLIC PANEL carbon dioxide 30 mmol/ L 20-32 normal Not Available [facility] [address] [place], [address], 07/13/2024 12:32:26 07/10/19 25 07/13/2024 COMPR EHENS JACQUELINE METAB OLIC PANEL calcium 9.3 mg/dL 8.6-10 .3 normal Not Available [facility] [address] [place] [address], [address], 07/13/2024 12:32:26 07/10/19 25 07/13/2024 COMPR EHENS JACQUELINE METAB OLIC PANEL protein, total 6.4 g/dL 6.1-8. 1 normal Not Available [facility] [place], [address], 07/13/2024 12:32:26 07/10/19 25 07/13/2024 COMPR EHENS JACQUELINE METAB OLIC PANEL albumin 3.3 g/dL 3.6-5. 1 low Not Available [facility] [address] [place] [address], [address], 07/13/2024 12:32:26 07/10/19 25 07/13/2024 COMPR EHENS JACQUELINE METAB OLIC PANEL globulin 3.1 g/dL_ (calc ) 1.9-3. 7 normal Not Available [facility] [address] [facility] [place], [address], 07/13/2024 12:32:26 07/10/19 25 07/13/2024 COMPR EHENS JACQUELINE METAB OLIC PANEL albumin/glob ulin ratio 1.1 (calc ) 1.0-2. 5 normal Not Available [facility] [address] [facility] [place], [address], 07/13/2024 12:32:26 07/10/19 25 07/13/2024 COMPR EHENS JACQUELINE METAB OLIC PANEL bilirubin, total 0.6 mg/dL 0.2-1. 2 normal Not Available [facility] [place] [facility] [address] [facility], [place], [address], 07/13/2024 12:32:26 07/10/19 25 07/13/2024 COMPR EHENS JACQUELINE METAB OLIC PANEL alkaline phosphatase 61 U/L 35-144 normal Not Available [facility] t [email or web address] [facility] [address] [facility] [place], [address], 07/13/2024 12:32:26 07/10/19 25 07/13/2024 COMPR EHENS JACQUELINE METAB OLIC PANEL AST 19 U/L 10-35 normal Not Available [facility] [address] [facility] [place], [address], 07/13/2024 12:32:26 07/10/19 25 07/13/2024 COMPR EHENS JACQUELINE METAB OLIC PANEL ALT 9 U/L 9-46 normal Not Available [facility] [address] [facility] [place], [address], 07/13/2024 12:32:26 07/10/19 25 07/13/2024 LEVET IRACE FOWLER levetiraceta m 54.0 mcg/m L high Refer ence Range : 12.0- 46.0 Toxic level is not well estab lishe d. Inter preta tion shoul d inclu de a clini zully evalu ation . For addit ional infor glen babcock e refer to http: //[facility] cativana n.Que stDia gnost ics.c om/fa q/FAQ 180 (This link is being provi ded for infor mativana nal/e ducat ional purpo ses only. ) This test was devel oped and its josé miguel tical perfo rmanc e tawnya cteri stics have been deter mined by [employer]. It has not been clear ed or appro ryan by the FDA. This assay has been valid ated pursu ant to the CLIA regul ation s and is used for clini zully purpo ses. Not Available [facility] [place] [facility] [address] [place], [address], 07/13/2024 12:32:27 08/31/1909/04/2024 COMPR EHENS JACQUELINE METAB OLIC PANEL glucose 121 mg/dL 65-99 high Fasti ng refer ence inter nkechi For someo ne witho ut known diabe sherri, a gluco se value betwe en 100 and 125 mg/dL is consi stent with predi abete s and shoul d be confi rmed with a follo w-up test. Not Available [facility] [place] [facility] [address] [place], [address], 09/04/2024 13:25:37 08/31/19 25 09/04/2024 COMPR EHENS JACQUELINE METAB OLIC PANEL urea nitrogen (BUN) 21 mg/dL 7-25 normal Not Available [facility] [place] [facility] [address] [employer], [place], [address], 09/04/2024 13:25:37 08/31/19 25 09/04/2024 COMPR EHENS JACQUELINE METAB OLIC PANEL creatinine 1.39 mg/dL 0.70-1 .22 high Not Available [facility] [address] [place], [address], 09/04/2024 13:25:37 08/31/19 25 09/04/2024 COMPR EHENS JACQUELINE METAB OLIC PANEL eGFR 51 mL/mi n/1.7 3m2 > or = 60 low Not Available [facility] [address] [place], [address], 09/04/2024 13:25:37 08/31/19 25 09/04/2024 COMPR EHENS JACQUELINE METAB OLIC PANEL BUN/creatini ne ratio 15 (calc ) 6-22 normal Not Available [facility] [address] [place], [address], 09/04/2024 13:25:37 08/31/19 25 09/04/2024 COMPR EHENS JACQUELINE METAB OLIC PANEL sodium 138 mmol/ L 135-14 6 normal Not Available [facility] [address] [place], [address], 09/04/2024 13:25:37 08/31/19 25 09/04/2024 COMPR EHENS JACQUELINE METAB OLIC PANEL potassium 4.3 mmol/ L 3.5-5. 3 normal Not Available [facility] [address] [place], [address], 09/04/2024 13:25:37 08/31/19 25 09/04/2024 COMPR EHENS JACQUELINE METAB OLIC PANEL chloride 100 mmol/ L 98-110 normal Not Available [facility] [address] [place], [address], 09/04/2024 13:25:37 08/31/19 25 09/04/2024 COMPR EHENS JACQUELINE METAB OLIC PANEL carbon dioxide 26 mmol/ L 20-32 normal Not Available [facility] [place] [facility] [address] [facility] [place], [address], 09/04/2024 13:25:37 08/31/19 25 09/04/2024 COMPR EHENS JACQUELINE METAB OLIC PANEL calcium 8.9 mg/dL 8.6-10 .3 normal Not Available [facility] [address] [facility] [place], [address], 09/04/2024 13:25:37 08/31/19 25 09/04/2024 COMPR EHENS JACQUELINE METAB OLIC PANEL protein, total 6.8 g/dL 6.1-8. 1 normal Not Available [facility] [place] [facility] [address] [facility] [place], [address], 09/04/2024 13:25:37 08/31/19 25 09/04/2024 COMPR EHENS JACQUELINE METAB OLIC PANEL albumin 3.7 g/dL 3.6-5. 1 normal Not Available [facility] [address] [place], [address], 09/04/2024 13:25:37 08/31/19 25 09/04/2024 COMPR EHENS JACQUELINE METAB OLIC PANEL globulin 3.1 g/dL_ (calc ) 1.9-3. 7 normal Not Available [facility] [address] [facility] [place], [address], 09/04/2024 13:25:37 08/31/19 25 09/04/2024 COMPR EHENS JACQUELINE METAB OLIC PANEL albumin/glob ulin ratio 1.2 (calc ) 1.0-2. 5 normal Not Available [facility] [address] [place], [address], 09/04/2024 13:25:37 08/31/19 25 09/04/2024 COMPR EHENS JACQUELINE METAB OLIC PANEL bilirubin, total 0.5 mg/dL 0.2-1. 2 normal Not Available [facility] [address] [place], [address], 09/04/2024 13:25:37 08/31/19 25 09/04/2024 COMPR EHENS JACQUELINE METAB OLIC PANEL alkaline phosphatase 46 U/L 35-144 normal Not Available [facility] [employer] [facility] [address] [place], [address], 09/04/2024 13:25:37 08/31/19 25 09/04/2024 COMPR EHENS JACQUELINE METAB OLIC PANEL AST 21 U/L 10-35 normal Not Available [facility] [address] [place], [address], 09/04/2024 13:25:37 08/31/19 25 09/04/2024 COMPR EHENS JACQUELINE METAB OLIC PANEL ALT 11 U/L 9-46 normal Not Available [facility] [address] [place], [address], 09/04/2024 13:25:37 08/31/19 25 09/04/2024 TSH TSH 2.03 mIU/L 0.40-4 .50 normal Not Available [facility] [address] [place], [address], 09/04/2024 13:25:39 08/31/19 25 09/04/2024 LEVET IRACE [...] for clini zully purpo ses. Not Available [facility] [place] [facility] [address] [facility] [place], [address], 09/04/2024 13:25:39 08/31/19 25 09/04/2024 VALPR OIC ACID valproic acid 116.9 mg/L 50.0-1 00.0 high Not Available [facility] [place] [facility] [address], [place], [address], 09/04/2024 13:25:40 10/25/19 25 10/24/2024 CT, abdom en + pelvi s, w/o contr ast No observ ation record ed. [address], [place], [address], 11/05/2024 08:08:54 10/25/19 25 10/24/2024 CT, angio gram, abdom en + pelvi s, w/ contr ast No observ ation record ed. [address], [place], [address], 11/05/2024 08:09:24 10/25/19 25 10/24/2024 rhyth m strip , EKG* No observ ation record ed. [address], [place], [address], 11/05/2024 08:09:32 10/25/19 25 10/24/2024 US, echoc ardio gram No observ ation record ed. [address], [place], [address], 11/05/2024 08:06:49 10/26/19 25 10/25/2024 US, doppl er, venou s No observ ation record ed. [address], [place], [address], 11/05/2024 08:06:49 10/27/19 25 10/26/2024 XR, chest , 1 view No observ ation record ed. [address], [place], [address], 11/05/2024 08:06:49 10/28/19 25 10/26/2024 rhyth m strip , EKG* No observ ation record ed. [address], [place], [address], 11/05/2024 08:09:40 Result Notes None recorded. Problems Name Problem SNOMED Code Status Onset Date Resolution Date Notes Provider Name and Address Organization Details Recorded Time Gastroeso phageal reflux disease 057991973 Active Not Available [employer] 0 17:52:26 Osteoporo sis 75723238 Active Not Available [facility] 0 17:52:26 Hyperlipi demia 35521542 Active Not Available [facility] 0 17:52:26 Generaliz ed osteoarth ritis 226307268 Active Not Available [facility] 0 17:52:26 Disorder of urinary tract 86306552 Active Not Available [facility] 0 17:52:26 Acute bronchiti s 66418810 Completed 02/11/2019 Mini Freire MD [address] [facility], [address], [place], [address] , [facility] [employer] 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 9 14:00:49 Fatigue 90913578 Active Not Available [facility] 0 17:52:26 Abdominal pain 73732491 Active Not Available [facility] 0 17:52:26 Fracture of humerus 92352522 Active 2019 Mini Freire MD [address] [address], [place], [address] [place] [address] , [facility] 0 23:20:57 Closed fracture of right acetabulu m [id number] 714457 Active 2019 Mini Freire MD [address], [address] [place] [address] , [facility] 0 23:20:44 Problem Notes None recorded. 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 06/13/2020 08:30:49 11/27/19 19 repair of hip completed [facility] 12/22/2018 13:37:34 04/12/20 17 Colonoscopy completed Mini Freire MD [address] [address], [place], [address] [place] [address], [facility] 05/16/2017 09:30:12 01/26/20 17 Nebulizer tx completed Mini Freire MD [address], [address] [place] [address], [facility] 01/25/2017 10:57:41 03/02/20 16 Knee arthroscopy/surge ry completed Mini Freire MD [address], [address] [place] [address], [facility] 12/24/2018 14:50:20 05/02/19 15 Cataract Surgery completed Mini Freire MD [address], [address] [place] [address], [facility] 02/11/2019 14:05:52 04/12/20 13 Colonoscopy completed Mini Freire MD [address], [address] [place] [address], [facility] 02/11/2019 14:04:42 05/02/19 09 Cataract Surgery completed Mini Freire MD [address], [address] [place] [address], [facility] 12/27/2014 10:59:54 Knee Surgery completed Mini Freire MD [address], [address] [place] [address], [facility] 01/15/2016 10:49:41 Appendectomy completed Mini Freire MD [address], [address] [place] [address], [facility] 01/15/2016 11:05:11 Tonsillectomy completed [facility] 06/15/2011 11:38:57 Other completed [facility] 06/15/2011 11:38:57 Imaging Results None recorded. Procedure Notes None recorded. Medical Equipment None Reported. Allergies Allergen ID Allergen Name Allergen Category Reaction Reaction Severity Criticality Documentation Date Start Date Code Code System Note Provider Name and Address Organization Details Recorded Time 37219 Augmentin medicatio n rash moderate high 03/10/20232022 06347 2 RxNorm Mini Freire MD [address] [facility], [address], [place], [address] [facility] 3 14:53:39 Medications Name Sig Start [...] day by oral route in the evening. 06/244 completed Not Available Not Available Not Available [...] TAKE 1 CAPSULE EVERY MORNING 09/12 completed Viviana, Kim, Ovidio, Sat Only take if needed [...] e 50 mcg/actua tion nasal spray,noemi pension [place] 1 spray every day by intranas al [...] Not Avai lable glucosami ne 500 mg-chondr oit-[facility] no1 416.6 mg-C 20 mg-peggy-b osw tablet [...] Available Not Av ailable Not Available Fluzone 7434-0849 (PF) 45 mcg (15 mcg x 3)/0.5 mL intramusc ular syringe active Not Available Not Available Not Available ferrous gluconate 324 mg (37.5 mg iron) tablet Take 1 tablet every day by oral route at bedtime. 07/28 completed Not Available Not Available Not Available Fluzone 2793-2347 (PF) 45 mcg (15 mcg x 3)/0.5 mL intramusc ular syringe active Not Available Not Available Not Available Prepopik 10 mg-3.5 gram-12 gram oral powder packet 04/21 completed Not Available Not Available Not Available Fluvirin [id number] (PF) 45 mcg (15 mcg x3)/0.5 mL [...] blood by Pulse oximetry Body temperature Systolic And Diastolic Provider Name and Address Organization Details Last Updated DateTime 4 165.1 cm 33.3 kg/m2 75542.4 7 g 73 /min 95 % 95 % 97 [degF] 128/76 mm[Hg] [facility] 4 11:34:56 Date Recorded Body height Body mass index (BMI) Body weight Heart rate Oxygen saturation Oxygen saturation in Arterial blood by Pulse oximetry Body temperature Systolic And Diastolic Provider Name and Address Organization Details Last Updated DateTime 5 165.1 cm 33.9 kg/m2 80267.8 4 g 73 /min 97 % 97 % 97.2 [degF] 123/74 mm[Hg] [facility] 5 15:16:05 Date Recorded Body height Heart rate Oxygen saturation Oxygen saturation in Arterial blood by Pulse oximetry Body temperature Systolic And Diastolic Provider Name and Address Organization Details Last Updated DateTime 4 165.1 cm 79 /min 96 % 96 % 97.9 [degF] 119/71 mm[Hg] [facility] 4 14:40:47 Date Recorded Body height Body mass index (BMI) Body weight Heart rate Oxygen saturation Oxygen saturation in Arterial blood by Pulse oximetry Body temperature Systolic And Diastolic Provider Name and Address Organization Details Last Updated DateTime 5 165.1 cm 34.6 kg/m2 15746.2 1 g 80 /min 94 % 94 % 97.5 [degF] 110/65 mm[Hg] [facility] 5 14:40:27 Date Recorded Body mass index (BMI) Body weight Provider Name and Address Organization Details Last Updated DateTime 02/13/2024 36.6 kg/m2 33409.32 g Mini Freire MD [address] [place] [address], [facility], [place], [address], [facility] 02/13/2024 14:36:04 Date Recorded Body height Heart rate Oxygen saturation Oxygen saturation in Arterial blood by Pulse oximetry Body temperature Systolic And Diastolic Provider Name and Address Organization Details Last Updated DateTime 165.1 cm 76 /min 96 % 96 % 97.2 [degF] 127/79 mm[Hg] [facility] 13:47:31 Social History Question Answer Notes LastModified by Organization Details LastModified Time Tobacco Smoking Status Former Smoker Not Available [facility] 02/26/2020 03:11:18 Do You Have An Advance Directive? Yes [id number] Information not available 02/26/2020 Auto Related Injury? No Information not available 06/15/2011 Is Blood Transfusion Acceptable In An Emergency? Yes [id number] Information not available 02/26/2020 What Is Your Level Of Caffeine Consumption? Moderate [id number] Information not available 02/26/2020 How Much Tobacco Do You Chew? None [id number] Information not available 02/26/2020 Diabetes No Information not available 06/15/2011 What Type Of Diet Are You Following? 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 3 [id number] Information not available 02/26/2020 What Is Your Relationship Status? Information not available 02/13/2024 Are You Passively Exposed To Smoke? No Information not available 06/15/2011 How Much Tobacco Do You Smoke? No Smoked About 10 Years And Quit In 1999 Information not available 02/08/2023 General Stress Level Low Information not available 06/15/2011 How Many Years Have You Smoked Tobacco? 10 [id number] Information not available 02/26/2020 Sex: Unknown Functional Status Question Answer Note LastModified by Organizat ion Details LastModified Time What is your level of alcohol consumption? None [id number] Information not available 02/26/2020 Are you currently employed? Yes [id number] Information not available 02/26/2020 Are you able to care for yourself? Yes [id number] Information not available 02/26/2020 What is your occupation? Other [employer]ICHARD Information not available 10/04/2024 What is your exercise level? Moderate senior exercise classes two days week [id number] Information not available 02/26/2020 Mental Status None recorded. Family History Relationship Description Onset Age of this Age Resolved Age Notes LastModified by Organization Details LastModified Time Father Diabetes mellitus colon cancer (previ ously record ed as Diabet es) Not available 09/01/2015 10:13:47 Medical History Condition Response Coronary Artery Disease N Gout N Kidney Stones N Blood Diseases N Hyperthyroidism N Hypothyroidism N COPD N Depression N Developmental or Behavioral Disorders N Eczema, [...] high-dose, trivalent, PF 7 completed Not Available [facility] 05/19/2019 02:12:13 Influenza, split virus, trivalent, preservative 1 completed Not Available [facility] 12/21/2019 17:52:26 zoster live 0 completed Not Available [facility] 12/21/2019 17:52:26 Influenza, split virus, trivalent, preservative 2 completed Not Available [facility] 12/21/2019 17:52:26 Influenza, split virus, trivalent, preservative 3 completed Not Available [facility] 12/21/2019 17:52:26 Influenza, high-dose, trivalent, PF 8 completed Not Available [facility] 05/19/2019 02:12:13 Influenza, high-dose, trivalent, PF 9 completed Not Available [facility] 05/19/2019 02:12:11 Influenza, high-dose, quadrivalent, PF 1 completed Mini Freire MD [address] [facility], [address], [place], [address], [facility] 01/04/2021 15:13:33 Influenza, high-dose, quadrivalent, PF 1 completed [facility] 01/08/2021 08:56:50 Pneumococcal conjugate PCV 13 5 completed Not Available [facility] 12/21/2019 17:52:26 Influenza, high-dose, quadrivalent, PF 2 completed Mini Freire MD 2017 [facility], [facility], [place], [address], [facility] 01/21/2022 13:18:40 Tdap [...] mL 4 completed Mini Freire MD 2017 [facility] [address], [place], [address], [facility] 02/14/2024 06:48:50 zoster, unspecified formulation 8 completed Not Available [facility] 12/21/2019 17:52:26 Hep A, adult 8 completed Not Available [facility] 12/21/2019 17:52:26 zoster, unspecified formulation 9 completed Not Available [facility] 12/21/2019 17:52:26 Hep A, adult 9 completed Not Available [facility] 12/21/2019 17:52:26 Influenza, high-dose, quadrivalent, PF 1 completed Mini Freire MD 2017 [facility], [facility], [place], [address], [facility] 01/04/2021 15:11:30 COVID-19, mRNA, LNP-S, PF, 30 mcg/0.3 mL dose 1 completed Mini Freire MD [address] [place] [address], [place], [place], [address] [place] [address], [place] [facility] 01/18/2022 13:52:37 COVID-19, mRNA, LNP-S, PF, 30 mcg/0.3 mL dose 2 completed Mini Freire MD [address] [address], [place], [address] [place] [address], [place] [facility] 01/18/2022 13:52:49 COVID-19, mRNA, LNP-S, PF, 30 mcg/0.3 mL dose 1 completed Mini Freire MD [address] [address], [place], [address] [place] [address], [place] [facility] 01/18/2022 13:53:07 COVID-19, mRNA, LNP-S, PF, 30 mcg/0.3 mL dose 1 completed Mini Freire MD [address] [address], [place], [address] [place] [address], [place] [facility] 01/18/2022 13:53:27 COVID-19, mRNA, LNP-S, PF, 30 mcg/0.3 mL dose 2 completed Mini Freire MD [address] [address], [place], [address] [place] [address], [place] [facility] 02/23/2022 15:40:55 Tdap 3 completed Mini Freire MD [address] [address], [place], [address] [place] [address], [place] [facility] 02/28/2023 12:13:45 Respiratory syncytial virus (RSV) vaccine, unspecified 3 completed Mini Freire MD [address], [address], [facility] 02/28/2023 12:14:55 COVID-19, mRNA, LNP-S, bivalent, PF, 30 mcg/0.3 mL dose 3 completed Mini Freire MD [address], [address], [facility] 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 Multiple a ctinic keratoses 789486981 [id number] Mini Freire MD [address] [address] 09/01/2015 09:44:29 09/01/2015 13:40:36 Acute sinusitis 25889140 J01.90 Fatigue 29010453 R53.83 Abdominal pain 19673922 R10.9 [id number] Mini Freire MD [facility] [address] [address] 01/15/2016 09:27:03 01/21/2016 11:38:56 Adult health examination 565760281 Z00.01 Knee pain 50492109 M25.5 69 Seizure disorder 6599068 02 G40.909 Gastroesop hageal reflux disease 408460217 K21.9 Generalize d osteoarthritis 707467225 M15.9 Hyperlipidemia 65346381 E78.5 Neoplasm of skin 0286153 04 D49.2 Body mass index 30+ - obesity 912268203 Z68.30 Depression screening 171 324101 Z13.89 [id number] Mini Freire MD [facility] [address] [place] [address] 7 08/12/2016 08:55:53 08/17/2016 09:43:03 History of bowel obstruction 3253476089 65038 Z87.19 Hyperlipidemia 32235651 E78.5 Chronic constipation 236 095237 K59.09 Seizure disorder 4139016 02 G40.909 [id number] Mini Freire MD [facility] [place] [address] 7 01/25/2017 09:24:25 01/27/2017 12:13:10 Adult health examination 370373762 Z00.01 Lower resp iratory tract infection 26908047 J22 Anemia 478528793 D64.9 Screening for malignant neoplasm of colon 558599491 Z12.11 Depression screening 171 833328 Z13.89 At low risk for fall 439 138741 Z91.81 Body mass index 25-29 - overweight 992516079 Z68.29 [id number] Mini Freire MD [place] [id number] 01/28/2017 10:54:21 02/01/2017 10:01:29 Asthmatic bronchitis 048290434 J45.909 Active or passive immunization 130968631 Z23 Iron defic iency anemia 10384711 D50.9 [id number] Mini Freire MD [facility] [place] [id number] 04/21/2017 10:58:07 04/21/2017 13:38:13 Acute sinusitis 32050470 J01.90 [id number] Mini Freire MD [facility] [place] [id number] 7 05/03/2017 11:06:18 05/03/2017 15:03:43 Asthmatic bronchitis 735815562 J45.909 Lower resp iratory tract infection 83666586 J22 [id number] Mini Freire MD [facility] [address] [address] 01/26/2018 13:22:18 01/29/2018 20:47:43 Adult health examination 560559810 Z00.01 Active or passive immunization 254892677 Z23 Seizure disorder 7588410 02 G40.909 he takes 2 phenobarb in am and 2 in PM 3 nights and 1 in PM 4 nights per week; we are decreasing dilantin to 2 in am only Depression screening 171 022845 Z13.89 Body mass index 30+ - obesity 828420190 Z68.31 Hyperlipidemia 19056939 E78.5 Gastro-eso phageal reflux disease with esophagitis 017178602 K21.0 [id number] Mini Freire MD [facility] [address] [address] 03/31/2018 10:29:57 04/04/2018 08:55:43 Acute sinusitis 68709545 J01.90 [id number] Mini Freire MD [facility] [address] [address] 08/18/2018 10:12:04 08/20/2018 21:17:22 Acute sinusitis 76350669 J01.90 Cough 69711297 R05 [id number] Mini Freire MD [address] [address] 08/29/2018 10:04:31 09/01/2018 08:14:40 Epilepsy 14513268 G40.909 Hyperlipidemia 42893801 E78.5 Gastroesop hageal reflux disease 249324031 K21.9 Body mass index 30+ - obesity 916121293 Z68.31 [id number] Mini Freire MD [facility] [address] [address] 12/22/2018 13:26:35 12/25/2018 10:20:58 Osteoporosis 77951282 M81.0 Fracture of femur 831296 00 M84.750D Seizure disorder 2365670 02 G40.909 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 Gastroesop hageal reflux disease 328016326 K21.9 Body mass index 30+ - obesity 304559980 Z68.30 [id number] Mini Freire MD [facility] [address] [place] [address] 02/01/2019 10:01:48 02/05/2019 08:32:57 Adult health examination 790257653 Z00.01 Active or passive immunization 614294118 Z23 Seizure disorder 6426818 02 G40.909 Depression screening 171 828226 Z13.89 Body mass index 30+ - obesity 957137484 Z68.30 Hyperlipidemia 43287021 E78.5 Gastro-eso phageal reflux disease with esophagitis 963259098 K21.0 Osteoporosis 71223833 M8 1.0 [id number] Mini Freire MD [facility] [address] [place] [address] 04/06/2019 14:12:37 04/06/2019 16:03:30 Lower respiratory tract infection 36949791 J22 [id number] Mini Freire MD [facility] [address] [place] [address] 01/03/2020 13:02:07 01/28/2020 07:48:51 Fracture of humerus 88559388 S42.301D Closed fra cture of right acetabulum 2681972364 8664978 S32.401D Epilepsy 16983625 G40.90 9 Osteoporosis 30286162 M8 1.0 Gastroesop hageal reflux disease 157337985 K21.9 Hyperlipidemia 77664737 E78.5 Benign pro static hyperplasia 403723307 N40.1 Anemia 764371783 D64.9 Constipation 09164022 K5 9.00 [id number] Mini Freire MD [facility] [address] [place] [address] 02/13/2020 17:00:23 2020 08:05:38 Fracture of humerus 51778409 S42.301D Closed fra cture of right acetabulum 3314017048 9213734 S32.401D Epilepsy 06128497 G40.90 9 Osteoporosis 72065937 M8 1.0 Gastroesop hageal reflux disease 979877460 K21.9 Hyperlipidemia 19455535 E78.5 Benign pro static hyperplasia 351830578 N40.1 Constipation 19625311 K5 9.00 [id number] Mini Freire MD [facility] [address] [address] 03/06/2020 16:59:23 03/07/2020 08:39:56 Fracture of humerus 83513258 S42.301D Closed fra cture of right acetabulum 8195968962 3349198 S32.401D Epilepsy 98019984 G40.90 9 Osteoporosis 25400212 M8 1.0 Gastroesop hageal reflux disease 739522779 K21.9 Hyperlipidemia 08107991 E78.5 Benign pro static hyperplasia 512342348 N40.1 Constipation 57771724 K5 9.00 Urinary tr act infectious disease 03851875 N39.0 [id number] Mini Freire MD [address] [address] 06/12/2020 00:17:29 06/15/2020 17:17:02 Fracture of humerus 29994777 S42.301D Closed fra cture of right acetabulum 5500663813 7404536 S32.401D Epilepsy 71451966 G40.90 9 Osteoporosis 39457169 M8 1.0 Gastroesop hageal reflux disease 094035886 K21.9 Hyperlipidemia 80942013 E78.5 Benign pro static hyperplasia 639789223 N40.1 Constipation 95182656 K5 9.00 History of reverse prosthetic total arthroplasty of right shoulder 9154058257 0259784 Z96.611 Transition from acute care to self-care 6409477892 62049 Z76.89 [id number] Mini Freire MD [facility] [address] [address] 01/01/2021 14:17:18 01/04/2021 13:53:09 Administration of influenza vaccine 70625046 Z23 History of reverse prosthetic total arthroplasty of right shoulder 3235054046 1541328 Z96.611 Closed fra cture of right acetabulum 3414161348 6418049 S32.401D Epilepsy 26447811 G40.90 9 Osteoporosis 87303660 M8 1.0 Gastroesop hageal reflux disease 717352309 K21.9 Hyperlipidemia 03613165 E78.5 Benign pro static hyperplasia 714718486 N40.1 Adult [facility] examination 973012558 Z00.01 Body mass index 30+ - obesity 566010218 Z68.33 History of fracture of shoulder 1242027741 03696 Z87.81 History of osteoporotic fracture 7549232786 68871 Z87.310 Disorder of bone 1008890 3 M89.9 [id number] Mini Freire MD [facility] [address] [address] 11/09/2021 16:34:46 11/13/2021 08:00:57 History of reverse prosthetic total arthroplasty of right shoulder 3312149556 5066687 Z96.611 Closed fra cture of right acetabulum 2269948850 3791594 S32.401D Epilepsy 21007609 G40.90 9 Osteoporosis 69253838 M8 1.0 Gastroesop hageal reflux disease 966182511 K21.9 Hyperlipidemia 57704202 E78.5 Benign pro static hyperplasia 406982477 N40.1 History of fracture of shoulder 8276123009 26583 Z87.81 History of osteoporotic fracture 1478678230 13579 Z87.310 Disorder of bone 8813855 3 M89.9 Muscle weakness 41771665 M62.81 [id number] Mini Freire MD [address] [address] 01/18/2022 13:24:04 01/22/2022 08:23:00 Administration of influenza vaccine 43420923 Z23 Adult [facility] examination 166121345 Z00.01 History of reverse prosthetic total arthroplasty of right shoulder 4820526198 1248436 Z96.611 Closed fra cture of right acetabulum 2365070993 3240882 S32.401D Epilepsy 05097248 G40.90 9 Osteoporosis 42559020 M8 1.0 Gastroesop hageal reflux disease 127462292 K21.9 Hyperlipidemia 04010739 E78.5 Benign pro static hyperplasia 688667324 N40.1 Body mass index 30+ - obesity 529953997 Z68.37 History of fracture of shoulder 2891454800 16966 Z87.81 History of osteoporotic fracture 8481519449 11633 Z87.310 Disorder of bone 0292369 3 M89.9 Drug-induc ed hyponatremia 538838463 T50.905A [id number] Mini Freire MD [facility] [address] [place] [address] 7 02/23/2022 14:33:47 02/25/2022 08:40:04 Seasonal allergic rhinitis 296821944 J30.2 Acute lowe r respiratory tract infection 677724465 J22 he has some guaifenesi n 1200 bid to use [id number] Mini Freire MD [facility] [address] [place] [address] 7 03/30/2022 15:25:25 04/02/2022 09:07:31 Acute lower respiratory tract infection 460758751 J22 he has some guaifenesi n 1200 bid to use Hyponatremia 46479307 E8 7.1 Anemia 715613990 D64.9 Venous sta sis edema of bilateral lower limbs 6734240060 9051421 I87.2 Wheezing 84512098 R06.2 Cough 69709573 R05.9 [id number] Mini Freire MD [facility] [place] [address] 02/08/2023 13:34:10 02/10/2023 08:55:16 Adult health examination 823730487 Z00.01 Closed fra cture of right acetabulum 7844328048 9335228 S32.401D Epilepsy 45503042 G40.90 9 Osteoporosis 93160791 M8 1.0 Gastroesop hageal reflux disease 946142555 K21.9 Hyperlipidemia 69331289 E78.5 Benign pro static hyperplasia 350717676 N40.1 Body mass index 30+ - obesity 806803467 Z68.37 History of fracture of shoulder 3699579118 55808 Z87.81 History of osteoporotic fracture 1360908517 31796 Z87.310 Disorder of bone 5042928 3 M89.9 History of reverse prosthetic total arthroplasty of right shoulder 9253672598 8022292 Z96.611 Drug-induc ed hyponatremia 207464333 T50.905A Impacted c erumen of bilateral ears 4223568361 918307 H61.23 [id number] Mini Freire MD [facility] [place] [address] 7 02/28/2023 11:43:25 03/01/2023 08:33:48 Acute lower respiratory tract infection J22 he has some guaifenesi n 1200 bid to use [id number] Mini Freire MD [place] [address] 7 03/10/2023 14:07:09 03/14/2023 08:42:14 Allergic reaction to drug 002253022 T50.905A Candidiasis of skin 4988 3006 B37.2 Seizure disorder 1688820 02 G40.909 [id number] Mini Freire MD [place] [address] 7 06/24/2023 11:09:02 06/27/2023 08:28:33 Recurrent falls 331400736 R29.6 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 3844141109 5106 L89.154 Abnormal g ait due to muscle weakness 911789750 M62.81 Seizure disorder 6958252 02 G40.909 Osteoporosis 45016997 M8 1.0 Body mass index 30+ - obesity 769446317 Z68.33 [id number] Mini Freire MD [place] [address] 7 07/29/2023 14:17:59 08/01/2023 08:35:42 Acute lower respiratory tract infection 280684320 J22 he has some guaifenesi n 1200 bid to use Hypothyroidism 86013614 E03.9 Pressure i njury of sacral region of back 057004510 L89.159 Hypoalbuminemia 35263086 4 E88.09 [id number] Mini Freire MD [facility] [place] [id number] 02/13/2024 13:46:23 02/14/2024 09:53:10 Active or passive immunization 322725495 Z23 Hypothyroidism 76894431 E03.9 Adult heal th examination 748450421 Z00.01 Contusion of right foot 0650828169 9187247 S90.31XA Pressure i njury of sacral region of back 073839934 L89.159 Medication review done by doctor 235020103 Z76.89 Closed fra cture of right acetabulum 4562304947 7648422 S32.401D Epilepsy 39481354 G40.90 9 Osteoporosis 87511291 M8 1.0 Gastroesop hageal reflux disease 750886625 K21.9 Hyperlipidemia 24400912 E78.5 Benign pro static hyperplasia 995043419 N40.1 Body mass index 30+ - obesity 429130549 Z68.37 History of fracture of shoulder 2451113540 22083 Z87.81 History of osteoporotic fracture 8902023122 35632 Z87.310 Disorder of bone 3336939 3 M89.9 History of reverse prosthetic total arthroplasty of right shoulder 6444662237 6088090 Z96.611 Drug-induc ed hyponatremia 474221919 T50.905A Bilateral hearing loss 86659185 H91.93 Medication serum levels outside of reference range 7031474474 98373 R78.9 [id number] Mini Freire MD [facility] [address] [place] [address] 07/09/2024 15:15:13 07/10/2024 11:36:53 Post-discharge follow-up 208777130 Z09 Seizure disorder 9807170 02 G40.909 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.2 Edema of l ower extremity 058670829 R60.0 Atrial par oxysmal tachycardia 105791519 I47.19 Low blood pressure 34308 003 I95.9 Body mass index 30+ - obesity 626787527 Z68.33 [id number] Mini Freire MD [facility] [address] [place] [address] 08/30/2024 14:38:18 09/03/2024 08:58:14 Seizure disorder 437641661 G40.909 Essential hypertension 02665105 I10 Acquired hypothyroidism 609672071 E03.9 Belinda an gular cheilitis 288609234 B37.83 Candidal intertrigo 2661 73238 B37.2 Angular cheilitis 138510 005 K13.0 Pressure i njury of sacral region of back stage I 6174436528 5101 L89.151 Allergic rhinitis 718271 04 J30.9 Health Concerns Section Related Observation LastModified by Organization Detai ls LastModified Time None Recorded Concern Status LastModified by Organization Details LastModified Time None Recorded Advance Directives Directive Y: Payers Insurance Date Sequence Insurance Name Policy Number Policy Padilla Covered Member ID Padilla Member ID Guarantor Name 12/19/2018 1 [employer] (MEDICARE REPLACEMENT PFFS) Christian Fuentes [id number] Christian Fuentes 12/19/2018 1 [employer] (MEDICARE REPLACEMENT/AD VANTAGE - PFFS) Christian Fuentes [id number] Christian Fuentes 10/03/2024 1 [employer] - MEDICARE ADVANTAGE (MEDICARE REPLACEMENT PPO) [id number] Christian Fuentes [id number] Christian Fuentes Notes Date Note Type Note [...] in the chair. Mini Freire MD [address] [facility], [address], [place], [address], [facility] 06/25/2023 09:48:28 07/29/2023 text/html [...] called The Breather Mini Freire MD [address] [facility], [facility], [place], [address], [facility] 07/30/2023 13:30:30 02/13/2024 [...] Kevin's butt paste. Mini Freire MD [address] [facility], [place] [address], [place], [address], [facility] 02/14/2024 07:34:47 07/09/2024 text/html got home from [facility] yesterday afternoon after being there since June 01. He got covid while in there and 2 falls in the nursing room. He went to [facility] ER on 05/26 for chest [...] it taste better. Mini Freire MD [address] [facility], [address], [place], [address], [facility] 07/10/2024 07:04:48 08/30/2024 text/html home [...] fastener. Mini Freire MD [address] [facility], [address], [place], [address], [facility] 08/31/2024 13:50:19
--- OUTSIDE RECORDS SUMMARY | 2024-11-05 17:05 | XMS_ITS | Encounter Summary ---
Author Organization [employer] ([place], [place], [place], [place]) Address [address] [place] [address] Care Team Providers Care Count Team Member Name Role Phone Unavailable Primary Care Provider Unavailabl e Encounter Details Date Type Department Care Team (Late st Contact Info) Description 12/04/2018 Transcribed Document [facility] Family Medicine [facility] [place] [address] ProviderDarwin MD [address] [place] [address] Social History Tobacco Use Types [...] Policy Numbers : Insurance 1 Health Plan: [employer] [facility] Policy Number: [id number] Authorization Number: [id number] Insurance Primary Name : [facility] Medicare Authorization Status-Primary : Admit approved Reference Number-Primary : [id number] Authorization Number-Primary : [id number] Number of Days Authorized-Primary : 5 Authorized Service Begin Date-Primary : 11/26/2018 EDT Authorized Service End Date-Primary : 11/30/2018 EDT Authorization Comments-Primary : [facility] approved per fax back Historical Authorization Comments-Primary : Comment 1: [facility] d/c date and summary attached to website ---auth still pending (VANDANA CRUZ, RN-Utilization Review 12/01/2018 11:06) Comment 2: Uploaded clinicals to [facility] Medicare via [employer] for continuing stay. (JONY PALOMO, JAIRON-Utilization Review 11/28/2018 13:33) Comment 3: [facility] approved per fax back -- nrd 11/28 (VANDANA CRUZ RN-Utilization Review 11/27/2018 16:05) Comment 4: Uploaded clinicals to [facility] Medicare via [employer]. (JONY PALOMO, RN-Utilization Review 11/27/2018 09:20) VANDANA CRUZ RN-Utilization Review - 12/04/2018 12:21 EDT documented in this encounter Plan of Treatment Not on file documented as of this encounter Visit Diagnoses Not on filedocumented in this encounter
--- OUTSIDE RECORDS SUMMARY | 2024-11-05 17:05 | XMS_ITS | Encounter Summary ---
Author Organization [employer] ([place], [place], [place], [place]) Address [address] [place] [address] Care Team Providers Care Cd Reactor Operator Name Role Phone Unavailable Primary Care Provider Unavailabl e Encounter Details Date Type Department Care Team (Late st Contact Info) Description 11/27/2018 Transcribed Document [facility] Family Medicine [facility] [address] ProviderDarwin MD [address] [place] [address] Social History Tobacco Use Types [...] Conversion Note - Historical ProviderMD - 11/27/2018 3:49 PM CDT Initial Discharge Planning Entered On: 11/27/2018 15:52 EDT Performed On: 11/27/2018 15:49 EDT by CHINMAY PASCUAL, Rn-Sign Out Clerk Initial Assessment I Previously Documented Living Environment [...] Listed? : Yes Medical Durable Power of Channel Program Manager Name : patient states his is first and son is secondary if she is unable Legal Guardian : No Is Guardianship Needed : No CHINMAY PASCUAL Rn-Sign Out Clerk - 11/27/2018 15:49 EDT Initial Assessment II Sensory and Motor Deficits : None Current Home Treatments and Equipment : Walker, Wheelchair Services and Community Resources : Physical Therapy Services and Community Resources Addl Comments : Patient was going to outpatient PT in [place] CHINMAY PASCUAL Rn-Sign Out Clerk - 11/27/2018 15:49 EDT Discharge Needs I Anticipated Discharge Date : 11/29/2018 EDT Anticipated Discharge To, CM : Home with home health, Rehabilitation Unit Current Home Treatment/Equipment : Current Home Treatment/Equipment No qualifying data available. CHINMAY PASCUAL Rn-Sign Out Clerk - 11/27/2018 15:49 EDT Discharge Needs II Professional Skilled Services : Professional Skilled Services No qualifying data available. Needs Assistance with Transportation : No Discharge Options Discussed with Patient : DME, Home Health, Outpatient services, Short term rehabilitation CHINMAY PASCUAL Rn-Sign Out Clerk - 11/27/2018 15:49 EDT Electronically signed by Vicente Rueda Conversion Pyrometer Temperature Regulator Cerner at 08/17/2022 9:46 AM CDT documented in this encounter Plan of Treatment Not on file documented as of this encounter Visit Diagnoses Not on filedocumented in this encounter
--- OUTSIDE RECORDS SUMMARY | 2024-11-05 17:05 | XMS_ITS | Data Portability ---
Author Organization [employer] [facility] Address [address] [facility] [address] [place] [address] Care Team Providers Care High School Tutor Name Role Phone MINI FREIRE Primary Care Provider [phone] Assessment Encounter Date Assessment Date Assessment LastModified [...] will follow up in 6 months, Time general surgeon 11 minutes Not available 05/31/2022 06:19:27 09/30/2022 09/30/2022 1. Epilepsy 2. Free of seizure 3. Disease controlled by 2 Rx Depakote and levetiracetam 4 Good safety on 09/21/22 lab data 5. Abnormal gait, walks with walker, is stand-by assist, holding gait belt Plan 1. No changes needed. 2. Continue current meds 3. follow up telehealth in 6 months, sooner if needed. Not available 10/01/2022 12:59:24 04/07/2023 04/07/2023 1. Epilepsy 2. Seizure free 3. Disease controlled by LEV 4. He follows regularly with Dr. Karen Go 5. He needs lab test in June and September and Dec and Apr 6. Telehealth follow up in 6 months Plan Not available 04/07/2023 15:31:40 10/17/2023 10/17/2023 1. [...] months Apr to monitor BMP and CBC [email or web address] Not available 10/18/2023 07:41:50 Plan of Treatment Reminders Order Date Submit Date Provider Last Modified By Organization Details Last Modified Time Details Appointments None recorded. Lab None recorded. Referral None recorded. Procedures None recorded. Surgeries None recorded. Imaging None recorded. Medication Orders Depakote ER 500 mg tablet,exte nded release 2023 024 [facility], [address] [place] [address], [address], 4 07:47:37 levetiracet am 1,000 mg tablet 2023 024 [facility], [address] [place] [address], [address], 4 07:47:35 levetiracet am 500 mg tablet 2023 024 [facility], [address] [place] [address], [address], 4 07:47:35 Patient TargetsNo targets recorded. Patient Instructions Encounter Date Encounter Id Patient Instructions Last Modified By Organization Details Last Modified Time 05/04/2022 [id number] CATEGORY DESCRIPTION MINUTES Prepare to see the patient (e.g. review of tests) Obtain/review separately obtained history reviewed prior notes and recent lab values for sodium level 5 Perform medically appropriate exam/evaluation 10 Order medications, tests, or procedures Trace Clerk/educate the patient/family/car egiver Refer/communicate w/other healthcare professionals Document clinical information into health record 10 Non-billable independent interp of results Non-billable care coordination TOTAL TIME 25 [id number] (15-29) 05825 (30-44) 54791 (45-59) 45575 (60-74) 42551 (10-19) 25276 (20-29) 20879 (30-39) 56258 (40-54) [email or web address] Not available 05/31/2022 06:20:49 Reason for Referral None Reported. Results Created Date Observation Date Name Description Value Unit Range Abnormal Flag Note LastModifiedBy Organization Detail LastModifiedTime Result Notes None recorded. Problems Name Problem SNOMED Code Status Onset Date Resolution Date Notes Provider Name and Address Organization Details Recorded Time Seizure 65685422 Active 019 Harini Tidwell [facility] 12/15/2018 10:41:19 Long-term drug therapy Active 021 Lisa (Katiuska) Mali [facility] 11/28/2020 15:21:21 Problem Notes Documentation Provider Name and Address Organization Details Recorded Time Endocrinology Consult Note : [address] [address]JMDJAMDC, Harry W (id #[id number], : 1940) [address] [address] Encounter Summary - Progress Note Date Printed: [...] received this fax in error, please visit [email or web address] to notify the sender and confirm that the information will be destroyed. If you do not have internet access, please call to notify the sender and confirm that the information will be destroyed. Thank you for your attention and cooperation. [ID:[id number]] Patient Christian Fuentes (82yo, M) #[id number] 1940 Patient Demographics: Address [address] [place] [address] Work Phone Encounter Notes: Encounter Reason/DateNone recorded 05/25/2022 - 01:00PM - ENDOCRINOLOGY SB History of Present Iclbijz56-xswa-ejy male patient with a past medical history significant for hyperlipidemia, seizure disorder on therapy, chronic hyponatremia seen today as a new office visit evaluation hyponatremia. Requesting provider: Dr. FarrarPatient's and son on bedside who relates to patient's medical history Per patient's he is known to have longstanding history of chronic hyponatremia. Instructed by Mini Schwartz's PCP in [place] to restrict fluid intake Reported respiratory infection/COVID [...] oral route.05/25/22 entered Loni Mouseelio glucosamine 375 kf-iytvbvnwv-exn no1 500 mg-C 15 mg-peggy 0.5 mg tabletTake by oral route.12/15/18 entered Lisa Samson levETIRAcetam 1,000 mg tabletTake 1 tablet(s) twice a day by oral route for 90 days.09/20/19 prescribed ISAC FARRAR MD levETIRAcetam 500 mg tabletTake 1 tablet(s) twice a day by oral route.07/03/20 entered Gopal Monreal amfnebnzgpzw40/16/19 entered Lisa Samson pantoprazole 40 mg tablet,delayed releaseTake 1 tablet(s) every day by oral route.10/16/18 entered Vasquez Lakesha Family HistoryReviewed Family History Father - Family history of cancer - Type 2 diabetes mellitus Mother - Obesity Past Medical History Allergies/Hayfever N ArthritisY Asthma N Bleeding Disorder N COPD N Cancer N Diabetes N Heart Attack ([place]) N High CholesterolY Hypertension N Kidney Disease N Kidney Stones N Liver Disease N Sleep Apnea N Tuberculosis N Notes Epilepsy Headache Vaccine HistoryReviewed Vaccines Vaccine Type Date Amt. Route Site [facility] Lot # Mfr. Exp. Date VIS VIS Given Supervisor Plate Forming COVID-19 COVID-19 (SARS-COV-2) vaccine, unspecified 06/06/20 pfizer COVID-19 (SARS-COV-2) vaccine, unspecified 05/05/20 pfizer Hepatitis A Hep A 05/02/18 [facility] Influenza influenza, injectable, quadrivalent 02/04/20 pharmacy influenza, injectable, quadrivalent 02/01/19 pcp influenza, injectable, quadrivalent 01/30/18 [facility] Pneumococcal pneumococcal 01/30/18 Shingles Vaccine 2018 [facility] Electronically Signed by: NORY GALLOWAY MD ISAC FARRAR MD [address] [place], [address], [facility] 05/31/2022 07:57:56 Procedures Surgical History Date Name Laterality Status Provider Name and Address Organization Details Recorded Time 03/14/20 20 Shoulder Surgery completed Rachel Mercado [facility] 10/17/2023 14:57:54 11/23/19 19 Injection Joint/Bursa, Major completed FELICITY PATEL [address] [place], [address], [facility] 11/22/2018 13:35:20 05/02/19 09 Appendectomy completed Lisa Samson (Camille) [facility] 12/15/2018 10:38:41 Orthopedic Surgery completed Vasquez Crowder [facility] 10/16/2018 11:33:59 Orthopedic Surgery completed Vasquez Lakesha [facility] 10/16/2018 11:34:47 Orthopedic Surgery completed Vasquez Lakesha [facility] 10/16/2018 11:35:37 Wrist arthroscopy/surg solo completed Rachel Mercado [facility] 10/17/2023 14:58:11 Hip Surgery completed Rachel Mercado [facility] 10/17/2023 14:58:29 procedure on ulna completed Rachel Mercado [facility] 10/17/2023 14:58:57 Imaging Results None recorded. Procedure Notes None recorded. Medical Equipment None Reported. Allergies Allergen ID Allergen Name Allergen Category Reaction Reaction Severity Criticality Documentation Date Start Date Code Code System Note Provider Name and Address Organization Details Recorded Time 713436 Product containin g penicilli n (product) medicatio n rash Not available Not available 10/17/2023 63823 8001 SNOMED Rachel Mercado [facility] 14:51:23 Medications Name Sig Start Date [...] Relief 50 mcg/actua tion nasal spray,latoya pension [place] 1 spray every day by intranas al [...] Updated DateTime 05/04/2022 170.18 cm 31.5 kg/m2 48113.07 g Cem Escobar [facility] 05/04/2022 13:00:38 Date Recorded Body height Body mass index (BMI) Body weight Heart rate Systolic And Diastolic Provider Name and Address Organization Details Last Updated DateTime 05/25/2022 170.18 cm 31.5 kg/m2 06841.07 g 67 /min 124/68 mm[Hg] Loni Cedric [facility] 05/25/2022 12:57:46 Date Recorded Body height Body mass index (BMI) Body weight Provider Name and Address Organization Details Last Updated DateTime 09/30/2022 170.18 cm 32.3 kg/m2 96361.03 g Cem Escobar [facility] 09/30/2022 14:45:36 Date Recorded Body height Provider Name an d Address Organization Details Last Updated DateTime 10/17/2023 170.18 cm Rachel Mercado [facility] 0 10/17/2023 14:50:38 Date Recorded Body height Body mass index (BMI) Body weight Provider Name and Address Organization Details Last Updated DateTime 04/07/2023 170.18 cm 32.1 kg/m2 03851.44 g Micheline Frias [facility] 04/07/2023 14:47:07 Social History Question Answer Notes LastModified by [employer] Details LastModified Time Tobacco Smoking Status [facility] 11:33:31 How Much Tobacco Do [...] 0 12/15/2018 10:37:29 Medical History Condition Response Diabetes N Allergies/Hayfever N Anxiety/Depression N Bleeding Disorder N Arthritis Y Kidney Stones N Heart Conditions N Blood Clot N Tuberculosis N Cancer N COPD N Asthma N Blood Thinners N Sleep Apnea N High Cholesterol Y Anesthesia Complications N Liver Disease N Heart Attack ([place]) N Hypertension N Kidney Disease N Immunizations Vaccine Type Date Status Note Provider Nam e and Address Organization Details Recorded Time Respiratory syncytial virus (RSV) MAB, unspecified 3 completed Rachel Jess [facility] 10/17/2023 14:59:59 SARS-COV-2 (COVID-19) vaccine, UNSPECIFIED 3 completed Rachel Jess [facility] 10/17/2023 15:00:10 Influenza, split virus, quadrivalent, preservative 8 completed Lisa (Katiuska) [facility] 12/15/2018 10:43:01 pneumococcal, unspecified formulation 8 completed Lisa (Katiuska) [facility] 12/15/2018 10:43:27 Hep A, unspecified formulation 9 completed Lisa (Katiuska) Solitarioley [facility] 12/15/2018 10:44:01 Influenza, split virus, quadrivalent, preservative 9 completed Kaelyn Prasad [facility] 04/09/2019 10:43:22 Influenza, split virus, quadrivalent, preservative 0 completed Gopal Monreal [facility] 07/03/2020 12:58:10 SARS-COV-2 (COVID-19) vaccine, UNSPECIFIED 1 completed Gopal geiger [facility] 07/03/2020 12:58:26 SARS-COV-2 (COVID-19) vaccine, UNSPECIFIED 1 [facility] 12:58:40 Past Encounters Encounter ID Performer Location Encounter Start Date Encounter Closed Date Diagnosis/Indication Diagnosis SNOMED-CT Code Diagnosis ICD10 Code Diagnosis Note [id number] Elio JACOBSEN PA-C [facility] [address] [place] [address] 10/16/2018 11:09:29 10/16/2018 13:11:12 Pain of left hip joint 0019740672 12437 M25.217 [id number] Elio JACOBSEN PA-C [facility] [address] [place] [address] 11/13/2018 10:15:04 11/13/2018 12:04:02 Pain of left hip joint 5761140355 05355 M25.948 [id number] FELICITY PATEL [facility] [address] [place] [address] 11/22/2018 10:51:35 11/22/2018 12:28:50 Trochanteric bursitis of left hip 5503752318 14952 M70.62 [id number] ISAC FARRAR MD NEUROLOGY [facility] [address] [facility] [place] [address] 12/15/2018 10:18:30 12/15/2018 11:35:36 Seizure 50664196 R56.9 Long-term drug therapy 443485756 Z79.941 [id number] ISAC FARRAR MD NEUROLOGY [facility] [address] [place] [address] 04/09/2019 10:36:03 04/09/2019 11:31:19 Seizure 22149188 R56.9 Epilepsy 41218626 G40.90 9 Long-term drug therapy 841244889 Z79.910 [id number] ISAC FARRAR MD NEUROLOGY [facility] [address] [place] [address] 07/31/2019 10:59:36 07/31/2019 12:02:25 Seizure 80038134 R56.9 History of fall 78736896 9 Z91.81 Traumatic injury due to event 911027082 T14.90XA Epilepsy 26293061 G40.90 9 Long-term drug therapy 488247226 Z79.899 Unsteady gait 523612615 R26.81 [id number] ISAC FARRAR MD NEUROLOGY [facility] [address] [place] [address] 1 09/20/2019 11:57:53 09/20/2019 13:02:04 Seizure 18752785 R56.9 [id number] ISAC FARRAR MD NEUROLOGY [facility] [address] [place] [address] 1 01/30/2020 11:41:35 01/30/2020 12:32:31 Seizure 84943811 R56.9 [id number] ISAC FARRAR MD NEUROLOGY [facility] [address] [place] [address] 1 04/09/2020 14:23:34 04/09/2020 15:11:09 Seizure 23031670 R56.9 [id number] ISAC FARRAR MD NEUROLOGY [facility] [address] [place] [address] 1 07/03/2020 12:55:08 07/03/2020 13:30:57 Seizure 45041733 R56.9 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 Long-term current use of drug therapy 850750263 Z79.899 High risk medication monitoring indicated 8331605963 3522199 Z76.89 [id number] ISAC FARRAR MD NEUROLOGY [facility] [address] [place] [address] 1 01/16/2021 12:55:55 01/16/2021 13:50:25 Epilepsy 70793851 G40.909 Long-term current use of drug therapy 570845295 Z79.787 [id number] ISAC FARRAR MD NEUROLOGY [facility] [address] [place] [address] 1 07/20/2021 14:34:18 07/20/2021 15:05:31 [id number] ISAC FARRAR MD NEUROLOGY [facility] [address] [place] [address] 1 01/20/2022 13:18:23 01/20/2022 13:34:36 Epilepsy 24871485 G40.909 Long-term current use of drug therapy 897711178 Z79.899 Abnormal g ait due to impairment of balance 134920440 R26.89 Hyponatremia 25314098 E8 7.1 [id number] ISAC FARRAR MD NEUROLOGY [facility] [address] [place] [address] 05/04/2022 12:58:14 05/04/2022 14:05:29 Seizure 02503637 R56.9 [id number] NORY GALLOWAY MD ENDOCRINO [facility] [address] [place] [address] 05/25/2022 12:15:33 05/25/2022 13:40:45 Hyponatremia 62648669 E87.1 New office visit evaluation hyponatrem iaFrom [...] basis of the above, I will contact [facility] to obtain a copy of urinary studies [...] e in the care of this patient. 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 Long-term current use of drug therapy 431289877 Z79.899 Abnormal g ait due to impairment of balance 449132143 R26.89 Hyponatremia 53473233 E8 7.1 Epilepsy 12628713 G40.90 9 Health Concerns Section Related Observation LastModified by Organization Detai ls LastModified Time None Recorded Concern Status LastModified by Organization Details LastModified Time None Recorded Advance Directives Directive None Recorded Payers Insurance Date Sequence Insurance Name Policy Number Policy Padilla Covered Member ID Padilla Member ID Guarantor Name 10/17/2023 1 [facility] (MEDICARE REPLACEMENT/A DVANTAGE - PPO) [id number] hCristian Fuentes [id number] Christian Fuentes Notes Date Note Type Note Provider Name and Address Organization Details Recorded Time 3 text/html [id number] y/o male W/ La[place] Epilepsy Pt stated no seizures since 12/05/2019 Pt stated he is free of seizure Tolerating current meds Depakote ER 500 mg 2 tabs in AM and 2 in evening Levetiracetam 1,000 mg x 1 tab bid Levetiracetam 500 mgm x 1 tab bid Pts would like to discuss tremors in both hands Pt doing well overall ISAC FARRAR MD [address] [place] [address], [address], [facility] 05/31/2022 06:21:11 3 [...] hyponatremia. Instructed by Mini Schwartz's PCP in [place] to restrict fluid intake Reported respiratory infection/COVID [...] Freire for hyponatremia evaluation. NORY GALLOWAY MD [facility] [place], [address], [facility] 05/25/2022 13:34:36 3 text/html Iabgjculou89 y/o male W/ [place] Epilepsy No seizures [...] Pt doing well overall ISAC FARRAR MD [facility] [place], [address], [facility] 10/01/2022 13:00:13 3 text/html Telehealth , pt and in [place] , at home in [facility] seizure free good routine taking meds had recent virus in March is walking only a little he walks in the house recent lab work not concerning I advised continue his regular amount of LEV ISAC FARRAR MD [address] [place] [place], [address], [facility] 04/15/2023 22:34:57 4 [...] EC in 6 months ISAC FARRAR MD [address] [place], [address], [facility] 10/18/2023 07:48:15
--- OUTSIDE RECORDS SUMMARY | 2024-11-05 17:05 | XMS_ITS | Encounter Summary ---
Author Organization [employer] ([place], [place], [place], [place]) Address [address] [place] [address] Care Team Providers Care Help Desk Supervisor Name Role Phone Unavailable Primary Care Provider Unavailabl e Encounter Details Date Type Department Care Team (Late st Contact Info) Description 11/26/[address] [facility] Family Medicine [address] [place] [address] ProviderDarwin MD [address] [place] [address] Social History Tobacco Use Types [...] Conversion Note - Historical ProviderMD - 11/26/2018 10:00 PM CDT Pain [...]
--- OUTSIDE RECORDS SUMMARY | 2024-11-05 17:05 | XMS_ITS | Encounter Summary ---
Author Organization [employer] ([place], [place], [place], [place]) Address [address] [place] [address] Care Team Providers Care Oil Well Perforator Operator Name Role Phone Unavailable Primary Care Provider Unavailabl e Encounter Details Date Type Department Care Team (Late st Contact Info) Description 12/01/2018 Transcribed Document [facility] [place] Family Medicine [facility] [place] [address] ProviderDarwin MD [address] [place] [address] Social History Tobacco Use Types [...] Policy Numbers : Insurance 1 Health Plan: [place] [employer] Policy Number: [id number] Authorization Number: [id number] Insurance Primary Name : [facility] Medicare Authorization Status-Primary : Awaiting callback Reference Number-Primary : [id number] Number of Days Authorized-Primary : 2 Authorized Service Begin Date-Primary : 11/26/2018 EDT Authorized Service End Date-Primary : 11/27/2018 EDT Authorization Comments-Primary : [facility] d/c date and summary attached to website ---auth still pending Historical Authorization Comments-Primary : Comment 1: Uploaded clinicals to [facility] Medicare via [employer] for continuing stay. (JONY PALOMO, RN-Utilization Review 11/28/2018 13:33) Comment 2: [facility] approved per fax back -- nrd 11/28 (VANDANA CRUZ, JAIRON-Utilization Review 11/27/2018 16:05) Comment 3: Uploaded clinicals to [facility] Medicare via [employer]. (JONY PALOMO, RN-Utilization Review 11/27/2018 09:20) VANDANA CRUZ RN-Utilization Review - 12/01/2018 11:06 EDT Electronically signed by Vicente Rueda Conversion Grades 1 Thru 6 Visiting Teacher Cerner at 08/17/2022 10:09 AM CDT documented in this encounter Plan of Treatment Not on file documented as of this encounter Visit Diagnoses Not on filedocumented in this encounter
--- OUTSIDE RECORDS SUMMARY | 2024-11-05 17:05 | XMS_ITS | Encounter Summary ---
Author Organization [employer] ([place], [place], [place], [place]) Address [address] [place] [address] Care Team Providers Care Onion Topper Name Role Phone Unavailable Primary Care Provider Unavailabl e Encounter Details Date Type Department Care Team (Late st Contact Info) Description 11/27/2018 Transcribed Document [facility] [place] [facility] [place] [address] ProviderDarwin MD [address] [place] [address] Social History Tobacco Use Types [...] Conversion Note - Darwin ProviderMD - 11/27/2018 10:37 PM CDT Patient: CLAUDINE FUENTES Age: 78 [...] 12.5 % LOW Lymph # 1.68 K/uL [place] % 8.1 % [place] # 1.08 K/uL [place] Eos % 0.4 [...]
--- OUTSIDE RECORDS SUMMARY | 2024-11-05 17:05 | XMS_ITS | Encounter Summary ---
Author Organization [employer] ([place], [place], [place], [place]) Address [address] [place] [address] Care Team Providers Care Bank Analyst Name Role Phone Unavailable Primary Care Provider Unavailabl e Encounter Details Date Type Department Care Team (Late st Contact Info) Description 11/26/2018 Transcribed Document [facility] [place] [facility] [place] [address] ProviderDarwin MD [address] [place] [address] Social History Tobacco Use Types [...] Actual Treatment Time : 16 Minute(s) MARIANNE OMNTALVO, PT - 11/27/2018 9:10 EDT History and [...] MARIANNE MONTALVO, PT - 11/27/2018 9:10 EDT Director Shopper Marketing Goals Other PT LTG Grid Goal #1 [...] from acute skilled PT services to maxamize safety/Cavalier with functional mobility prior to discharge. MARIANNE [...]
--- OUTSIDE RECORDS SUMMARY | 2024-11-05 17:05 | XMS_ITS | Encounter Summary ---
Author Organization [employer] ([place], [place], [place], [place]) Address [address] [place] [address] Care Team Providers Care Production Controller Name Role Phone Unavailable Primary Care Provider Unavailabl e Encounter Details Date Type Department Care Team (Late st Contact Info) Description 11/26/2018 Transcribed Document [facility] [place] [facility] [place] [address] ProviderDarwin MD [address] [place] [address] Social History Tobacco Use Types [...] Communication Barrier : None Primary Language : Hong Konger Any Spiritual/Cultural Needs or Requests : No [...] 02/07/2018 20:15:21 EDT by HAL BANKS RN) Musculoskeletal Musculoskeletal Assessment Comment : pT C/O LEFT HIP PAIN X 5 WEEKS, WORSENING PAIN, UNABLE TO BEAR WEIGHT, PAIN 12/09. DIONISIO MOODY Rn - 11/26/2018 10:53 EDT documented in this encounter Plan of Treatment Not on file documented as of this encounter Visit Diagnoses Not on filedocumented in this encounter
--- OUTSIDE RECORDS SUMMARY | 2024-11-05 17:05 | XMS_ITS | Encounter Summary ---
Author Organization [employer] ([place], [place], [place], [place]) Address [address] [place] [address] Care Team Providers Care Psychology Teacher Name Role Phone Unavailable Primary Care Provider Unavailabl e Encounter Details Date Type Department Care Team (Late st Contact Info) Description 11/27/2018 Transcribed Document [facility] [place] [address] [place] [address] ProviderDarwin MD [address] [place] [address] Social History Tobacco Use Types [...] Historical ProviderMD - 11/27/2018 9:20 AM CDT general utility machine operator Form Entered On: 11/27/2018 9:20 EDT Performed [...]
--- OUTSIDE RECORDS SUMMARY | 2024-11-05 17:05 | XMS_ITS | Encounter Summary ---
Author Organization [employer] ([place], [place], [place], [place]) Address [address] [place] [address] Care Team Providers Care Frog Catcher Name Role Phone Unavailable Primary Care Provider Unavailabl e Encounter Details Date Type Department Care Team (Late st Contact Info) Description 11/26/2018 Transcribed Document [facility] [place] [address] [place] [address] ProviderDarwin MD [address] [place] [address] Social History Tobacco Use Types [...] All Active Orders Reviewed : Yes MARTI LIM RN - 11/26/2018 18:20 EDT documented in this encounter Plan of Treatment Not on file documented as of this encounter Visit Diagnoses Not on filedocumented in this encounter
--- OUTSIDE RECORDS SUMMARY | 2024-11-05 17:05 | XMS_ITS | Encounter Summary ---
Author Organization [employer] ([place], [place], [place], [place]) Address [address] [place] [address] Care Team Providers Care Vessel Builder Name Role Phone Unavailable Primary Care Provider Unavailabl e Encounter Details Date Type Department Care Team (Late st Contact Info) Description 11/29/2018 Transcribed Document [facility] [place] [facility] [place] [address] ProviderDarwin MD [address] [place] [address] Social History Tobacco Use Types [...] Conversion Note - Darwin ProviderMD - 11/29/2018 2:47 PM CDT Patient Education [...] Barley. Bulgur wheat. Millet. Bran muffins. Popcorn. Cosby wafer crackers. Vegetables Sweet potatoes. Spinach. Kale. Artichokes. Cabbage. Broccoli. Green peas. Carrots. Squash. Fruits Berries. Pears. Apples. Oranges. Avocados. Prunes and raisins. Dried figs. Meats and Other Protein Sources Martorell, kidney, miranda, and soy beans. Split peas. [...] maisha has 11 g of protein. ?? Iredell seeds - 1 oz has 5.5 g [...] floor. ?? Place frequently used items in yizd-df-btkya places ?? Keep electrical cables out of [...] ?? Using the bathroom. ?? Using household segmental paving supervisor or toxic chemicals. ?? Touching or taking [...]
--- OUTSIDE RECORDS SUMMARY | 2024-11-05 17:05 | XMS_ITS | Encounter Summary ---
Author Organization [employer] ([place], [place], [place], [place]) Address [address] [place] [address] Care Team Providers Care Sports Administrator Name Role Phone Unavailable Primary Care Provider Unavailabl e Encounter Details Date Type Department Care Team (Late st Contact Info) Description 11/27/2018 Transcribed Document [facility] [place] [facility] [place] [address] ProviderDarwin MD [address] [place] [address] Social History Tobacco Use Types [...]
--- OUTSIDE RECORDS SUMMARY | 2024-11-05 17:05 | XMS_ITS | Encounter Summary ---
Author Organization [employer] ([place], [place], [place], [place]) Address [address] [place] [address] Care Team Providers Care Tugboat Operator Name Role Phone Unavailable Primary Care Provider Unavailabl e Encounter Details Date Type Department Care Team (Late st Contact Info) Description 11/27/2018 Transcribed Document [facility] [place] [facility] [place] [address] ProviderDarwin MD [address] [place] [address] Social History Tobacco Use Types [...] Historical ProviderMD - 11/27/2018 2:00 AM CDT Chemical Tank Worker Details Entered On: 11/27/2018 6:42 EDT Performed [...]
--- OUTSIDE RECORDS SUMMARY | 2024-11-05 17:05 | XMS_ITS | Encounter Summary ---
Author Organization [employer] ([place], [place], [place], [place]) Address [address] [place] [address] Care Team Providers Care Cloth Doffer Name Role Phone Unavailable Primary Care Provider Unavailabl e Encounter Details Date Type Department Care Team (Late st Contact Info) Description 11/29/2018 Transcribed Document [facility] [place] [facility] [place] [address] ProviderDarwin MD [address] [place] [address] Social History Tobacco Use Types [...] left hip fracture on x-ray done at [facility] ED (or more details please see H&P [...] is on pain medication as recommended by DR Patient's pain is well controlled. Patient is [...] CLINICALLY STABLE AFEBRILE OK TO D/C TO [facility] TO CONTINUE HIS CARE AND REHABILITATION AND TO FOLLOW-UP WITH DR. ISAC CORONA SCHEDULED. Orders Order Profile (Selected) Prescriptions Prescribed Keflex 500 mg oral capsule: 1 Cap, Oral, Cap, Q8H, X 7 Day(s), # 21 Cap, 0 Refill(s), other reason (Rx) [place] 7.5 mg-325 mg oral tablet: 1 Tab, [...]
--- OUTSIDE RECORDS SUMMARY | 2024-11-05 17:05 | XMS_ITS | Encounter Summary ---
Author Organization [employer] ([place], [place], [place], [place]) Address [address] [place] [address] Care Team Providers Care Rock Drill Operator Name Role Phone Unavailable Primary Care Provider Unavailabl e Encounter Details Date Type Department Care Team (Late st Contact Info) Description 11/26/2018 Transcribed Document [facility] [place] [facility] [address] ProviderDarwin MD [address] [place] [address] Social History Tobacco Use Types [...] Conversion Note - Historical ProviderMD - 11/26/2018 4:37 PM CDT DATE OF PROCEDURE: 11/26/2018 OPERATIVE REPORT PREOPERATIVE DIAGNOSIS(ES): Left low femoral neck fracture. POSTOPERATIVE DIAGNOSIS(ES): Left low femoral neck fracture. PROCEDURE: Closed reduction and placement of long Gamma nail to left femur for fixation of left femoral neck fracture. SURGEON: Mouna Juárez MD PROJECTION WELDING MACHINE OPERATOR: Maxwell Joyner PA-C necessary for leg positioning pre and intraoperative, placement of implant, closure of wound. IMPLANT: [place] Titanium Gamma nail 400 mm x12 mm [...] this time, he was placed on the Sullivan table with the right leg flexed and [...] The patient was then removed from the Sullivan table and placed supine in his hospital bed and taken in extubated stable condition to the recovery room. Mouna Juárez M.D. Dict: 11/26/2018 16:37:32 Trans: 11/26/2018 19:23:54 CC1: Mouna Juárez M.D. documented in this encounter Plan of Treatment Not on file documented as of this encounter Visit Diagnoses Not on filedocumented in this encounter
--- OUTSIDE RECORDS SUMMARY | 2024-11-05 17:05 | XMS_ITS | Encounter Summary ---
Author Organization [employer] ([place], [place], [place], [place]) Address [address] [place] [address] Care Team Providers Care Tool Lapper Hand Name Role Phone Unavailable Primary Care Provider Unavailabl e Encounter Details Date Type Department Care Team (Late st Contact Info) Description 11/26/2018 Transcribed Document [facility] [place] [facility] [place] [address] ProviderDarwin MD [address] [place] [address] Social History Tobacco Use Types [...] Conversion Note - Historical ProviderMD - 11/26/2018 11:29 PM CDT Event Note [...] 11/26/2018 23:29 EDT Electronically signed by Marybeth [facility] Conversion Chief Of Anesthesiology Cerner at 08/17/2022 10:09 AM CDT documented in this encounter Plan of Treatment Not on file documented as of this encounter Visit Diagnoses Not on filedocumented in this encounter
--- OUTSIDE RECORDS SUMMARY | 2024-11-05 17:06 | XMS_ITS | Encounter Summary ---
Author Organization [employer] ([place], [place], [place], [place]) Address [address] [place] [address] Care Team Providers Care Cannoneer Name Role Phone Unavailable Primary Care Provider Unavailabl e Encounter Details Date Type Department Care Team (Late st Contact Info) Description 11/28/2018 Transcribed Document [facility] [place] [address] [place] [address] ProviderDarwin MD [address] [place] [address] Social History Tobacco Use Types [...]
--- OUTSIDE RECORDS SUMMARY | 2024-11-05 17:06 | XMS_ITS | Encounter Summary ---
Author Organization [employer] ([place], [place], [place], [place]) Address [address] [place] [address] Care Team Providers Care Convex Grinder Name Role Phone Unavailable Primary Care Provider Unavailabl e Encounter Details Date Type Department Care Team (Late st Contact Info) Description 11/27/[address] [facility] [place] [facility] [place] [address] ProviderDarwin MD [address] [place] [address] Social History Tobacco Use Types [...] Historical ProviderMD - 11/27/2018 9:20 AM CDT UM Authorization Entered On: 11/27/2018 9:21 EDT Performed On: 11/27/2018 9:20 EDT by JONY PALOMO RN-Utilization Review Primary Insurance Authorization Authorization and Policy Numbers : Insurance 1 Health Plan: [employer] Policy Number: [id number] Authorization Number: Insurance Primary Name : [facility] Medicare Authorization Status-Primary : Awaiting callback Authorized Service Begin Date-Primary : 11/26/2018 EDT Authorization Comments-Primary : Uploaded clinicals to [facility] Medicare via [employer]. Historical Authorization Comments-Primary : No Authorization Comments Found JONY PALOMO RN-Utilization Review - 11/27/2018 9:20 EDT documented in this encounter Plan of Treatment Not on file documented as of this encounter Visit Diagnoses Not on filedocumented in this encounter
--- OUTSIDE RECORDS SUMMARY | 2024-11-05 17:06 | XMS_ITS | Encounter Summary ---
Author Organization [employer] ([place], [place], [place], [place]) Address [address] [place] [address] Care Team Providers Care Shower Attendant Name Role Phone Unavailable Primary Care Provider Unavailabl e Encounter Details Date Type Department Care Team (Late st Contact Info) Description 11/27/2018 Transcribed Document [facility] [place] [address] [place] [address] ProviderDarwin MD [address] [place] [address] Social History Tobacco Use Types [...]
--- OUTSIDE RECORDS SUMMARY | 2024-11-05 17:06 | XMS_ITS | Encounter Summary ---
Author Organization [employer] ([place], [place], [place], [place]) Address [address] [place] [address] Care Team Providers Care Sales Account Coordinator Name Role Phone Unavailable Primary Care Provider Unavailabl e Encounter Details Date Type Department Care Team (Late st Contact Info) Description 11/27/[address] [facility] [place] [facility] [place] [address] ProviderDarwin MD [address] [place] [address] Social History Tobacco Use Types Packs/Day Years Used Date Smoking Tobacco: Never Assessed Sex and Gender Information Value Date Recorded Sex Assigned at Male 10/27/2021 3:42 PM CDT Legal Sex Male 3:42 PM CDT Gender Identity Male 10/27/2021 3:42 PM CDT Sexual Orientation Not on file documented as of this encounter Miscellaneous Notes * [employer] Conversion Note - Historical ProviderMD - 11/27/2018 [...] weeks after d/c Electronically signed by Marybeth [facility] Conversion All Purpose Clerk Cerner at 08/17/2022 10:06 AM CDT documented in this encounter Plan of Treatment Not on file documented as of this encounter Visit Diagnoses Not on filedocumented in this encounter
--- OUTSIDE RECORDS SUMMARY | 2024-11-05 17:06 | XMS_ITS | Encounter Summary ---
Author Organization [employer] ([place], [place], [place], [place]) Address [address] [place] [address] Care Team Providers Care Client Program Manager Name Role Phone Unavailable Primary Care Provider Unavailabl e Encounter Details Date Type Department Care Team (Late st Contact Info) Description 11/28/2018 Transcribed Document [facility] [place] [facility] [place] [address] ProviderDarwin MD [address] [place] [address] Social History Tobacco Use Types [...] Historical ProviderMD - 11/28/2018 2:00 AM CDT Television Production Clerk Details Entered On: 11/28/2018 0:42 EDT Performed [...] : Appropriate Arterial Line : No Myra Beltran, RN - 11/28/2018 0:42 EDT documented in this encounter Plan of Treatment Not on file documented as of this encounter Visit Diagnoses Not on filedocumented in this encounter
--- OUTSIDE RECORDS SUMMARY | 2024-11-05 17:06 | XMS_ITS | Encounter Summary ---
Author Organization [employer] ([place], [place]) Address [address] [place] [address] Care Team Providers Care Loan Interviewer Mortgage Name Role Phone Unavailable Primary Care Provider Unavailabl e Encounter Details Date Type Department Care Team (Late st Contact Info) Description 11/27/2018 Transcribed Document [facility] [place] [facility] [place] [address] ProviderDarwin MD [facility] [place] [address] Social History Tobacco Use Types [...] On: 11/27/2018 15:57 EDT by MENDEZ DRAPER, MANAGER OF INTERNAL AUDIT General Information, PT Visit Type, PT : [...] met and within reach, Other: spouse, SCUDS, ENERGY EFFICIENT SITE MANAGER/PCT Informed Comment : JAIRON sanchez pt for therapy session Treatment End Time [...] MENDEZ DRAPER PTA - 11/27/2018 15:59 EDT Forest Fire Equipment Operator Goals Other PT LTG Grid Goal #1 [...] : Progressing, continue Progressing, continue Progressing, continue MENDEZ DRAPER PTA - 11/27/2018 15:59 EDT MENDEZ DRAPER, BRENDAN - 11/27/2018 15:59 EDT MENDEZ DRAPER, BRENDAN - 11/27/2018 15:59 EDT Treatment Note [...] the text rendition version of the form. Dorris PT Charges Gait Training Each 15 Min : 2 MENDEZ DRAPER PTA - 11/27/2018 15:59 EDT documented in this encounter Plan of Treatment Not on file documented as of this encounter Visit Diagnoses Not on filedocumented in this encounter
--- OUTSIDE RECORDS SUMMARY | 2024-11-05 17:06 | XMS_ITS | Encounter Summary ---
Author Organization [employer] ([place], [place], [place], [place]) Address [address] [place] [address] Care Team Providers Care Damage Assessor Name Role Phone Unavailable Primary Care Provider Unavailabl e Encounter Details Date Type Department Care Team (Late st Contact Info) Description 11/27/2018 Transcribed Document [facility] [place] [address] [place] [address] ProviderDarwin MD [address], [place] [id number] Social History Tobacco Use Types Packs/Day Years [...] Policy Numbers : Insurance 1 Health Plan: [employer] Policy Number: [id number] Authorization Number: Insurance Primary Name : [facility] Medicare Authorization Status-Primary : Awaiting callback Authorized Service Begin Date-Primary : 11/26/2018 EDT Historical Authorization Comments-Primary : No Authorization Comments Found JONY PALOMO RN-Utilization Review - 11/27/2018 8:51 EDT documented in this encounter Plan of Treatment Not on file documented as of this encounter Visit Diagnoses Not on filedocumented in this encounter
--- OUTSIDE RECORDS SUMMARY | 2024-11-05 17:06 | XMS_ITS | Encounter Summary ---
Author Organization [employer] ([place], [place], [place], [place]) Address [address] [place] [address] Care Team Providers Care Medication Administration Professional Name Role Phone Unavailable Primary Care Provider Unavailabl e Encounter Details Date Type Department Care Team (Late st Contact Info) Description 11/27/2018 Transcribed Document [facility] [place] [facility] [address] ProviderDarwni MD [address] [place] [address] Social History Tobacco Use Types [...] Policy Numbers : Insurance 1 Health Plan: [employer] Policy Number: [id number] Authorization Number: [id number] Insurance Primary Name : [facility] Medicare Authorization Status-Primary : Awaiting callback Reference Number-Primary : [id number] Authorized Service Begin Date-Primary : 11/26/2018 EDT Historical Authorization Comments-Primary : Comment 1: Uploaded clinicals to [facility] Medicare via [employer]. (JONY PALOMO RN-Utilization Review 11/27/2018 09:20) VANDANA CRUZ RN-Utilization Review - 11/27/2018 9:34 EDT Electronically signed by Marybeth [facility] Conversion Supervisor Transferring And Boxing Cerner at 08/17/2022 10:00 AM CDT documented in this encounter Plan of Treatment Not on file documented as of this encounter Visit Diagnoses Not on filedocumented in this encounter
--- OUTSIDE RECORDS SUMMARY | 2024-11-05 17:06 | XMS_ITS | Encounter Summary ---
Author Organization [employer] ([place], [place], [place], [place]) Address [address] [place] [address] Care Team Providers Care Airbrush Painter Name Role Phone Unavailable Primary Care Provider Unavailabl e Encounter Details Date Type Department Care Team (Late st Contact Info) Description 11/28/2018 Transcribed Document [facility] [place] [facility] [place] [address] ProviderDarwin MD [address] [place] [address] Social History Tobacco Use Types [...] On: 11/28/2018 14:48 EDT by CHINMAY PASCUAL, Rn-Lawn And Tree Service Spray SupervisorMission Analyst Progress Note Discharge Arrangements : Patient Post-Acute Information Patient Name: CHRISTIAN FEUNTES Gender: Male : 44 Age: 78 Years [...] Attend Multidisciplinary Rounds? : No CHINMAY PASCUAL, Rn-Lawn And Tree Service Spray Supervisor - 11/28/2018 14:48 EDT Narrative Progress Note Narrative Progress Note : Precert pending for [facility] CHINMAY PASCUAL Rn-Lawn And Tree Service Spray Supervisor - 11/28/2018 14:48 EDT Electronically signed by Marybeth [facility] [place] Conversion Brick Burner Cerner at 08/17/2022 9:53 AM CDT documented in this encounter Plan of Treatment Not on file documented as of this encounter Visit Diagnoses Not on filedocumented in this encounter
--- OUTSIDE RECORDS SUMMARY | 2024-11-05 17:06 | XMS_ITS | Encounter Summary ---
Author Organization [employer] ([place], [place], [place], [place]) Address [address] [place] [address] Care Team Providers Care Diesel Mechanic Construction Name Role Phone Unavailable Primary Care Provider Unavailabl e Encounter Details Date Type Department Care Team (Late st Contact Info) Description 11/27/2018 Transcribed Document [facility] [place] [facility] [place] [address] ProviderDarwin MD [address] [place] [address] Social History Tobacco Use Types [...] Conversion Note - Darwin ProviderMD - 11/27/2018 4:05 PM CDT UM Authorization Entered On: 11/27/2018 16:06 EDT Performed On: 11/27/2018 16:05 EDT by VANDANA CRUZ RN-Utilization Review Primary Insurance Authorization Authorization and Policy Numbers : Insurance 1 Health Plan: [employer] Policy Number: [id number] Authorization Number: [id number] Insurance Primary Name : [facility] Medicare Authorization Status-Primary : Admit approved Reference Number-Primary : [id number] Number of Days Authorized-Primary : 2 Authorized Service Begin Date-Primary : 11/26/2018 EDT Authorized Service End Date-Primary : 11/27/2018 EDT Authorization Comments-Primary : [facility] approved per fax back -- nrd 11/28 Historical Authorization Comments-Primary : Comment 1: Uploaded clinicals to [facility] Medicare via [employer]. (DEWEY, JONY, RN-Utilization Review 11/27/2018 09:20) VANDANA CRUZ RN-Utilization Review - 11/27/2018 16:05 EDT Electronically signed by Marybeth [facility] Conversion Social Media Coordinator Cerner at 08/17/2022 10:06 AM CDT documented in this encounter Plan of Treatment Not on file documented as of this encounter Visit Diagnoses Not on filedocumented in this encounter
--- OUTSIDE RECORDS SUMMARY | 2024-11-05 17:06 | XMS_ITS | Encounter Summary ---
Author Organization [employer] ([place], [place], [place], [place]) Address [address] [place] [address] Care Team Providers Care Division Operations Specialist Name Role Phone Unavailable Primary Care Provider Unavailabl e Encounter Details Date Type Department Care Team (Late st Contact Info) Description 11/28/2018 Transcribed Document [facility] [place] [facility] [place] [address] ProviderDarwin MD [address] [place] [address] Social History Tobacco Use Types [...] Conversion Note - Historical ProviderMD - 11/28/2018 5:36 PM CDT Patient: [...] 12.5 % LOW Lymph # 1.68 K/uL Towns % 8.1 % Towns # 1.08 K/uL HI Eos % 0.4 [...]
--- OUTSIDE RECORDS SUMMARY | 2024-11-05 17:06 | XMS_ITS | Encounter Summary ---
Author Organization [employer] ([place], [place], [place], [place]) Address [address] [place] [address] Care Team Providers Care Line Server Name Role Phone Unavailable Primary Care Provider Unavailabl e Encounter Details Date Type Department Care Team (Late st Contact Info) Description 11/28/2018 Transcribed Document [facility] [place] [facility] [place] [address] ProviderDarwin MD [address] [place] [address] Social History Tobacco Use Types Packs/Day Years Used Date Smoking Tobacco: Never Assessed Sex and Gender Information Value Date Recorded Sex Assigned at Male 10/27/2021 3:42 PM CDT Legal Sex Male 3:42 PM CDT Gender Identity Male 10/27/2021 3:42 PM CDT Sexual Orientation Not on file documented as of this encounter Miscellaneous Notes * [employer] Conversion Note - Historical ProviderMD - 11/28/2018 10:41 AM CDT Patient: CHRISTIAN FUENTES Age: 78 Years Sex: Male : [...] weeks post D/C Electronically signed by Marybeth [facility] Conversion Machine Shop Worker Cerner at 08/17/2022 9:55 AM CDT documented in this encounter Plan of Treatment Not on file documented as of this encounter Visit Diagnoses Not on filedocumented in this encounter
--- OUTSIDE RECORDS SUMMARY | 2024-11-05 17:06 | XMS_ITS | Encounter Summary ---
Author Organization [employer] ([place], [place], [place], [place]) Address [address] [place] [address] Care Team Providers Care Hide Selector Name Role Phone Unavailable Primary Care Provider Unavailabl e Encounter Details Date Type Department Care Team (Late st Contact Info) Description 11/26/2018 Transcribed Document [facility] [place] Pending [facility] to [facility] [address] ProviderDarwin MD [address] [place] [address] Social History Tobacco Use Types [...] Conversion Note - Historical ProviderMD - 11/26/2018 7:23 PM CDT Patient: [...] extremity so he decided to come to [facility] ED where x-ray revealed nondisplaced left hip fracture. Patient denies any history of fall or bumping to a hard object but there is a mentioned above, he is On Dilantin for over [address] Juárez, from [facility], was notified, and patient was taken [...] DM, HTN and cancer Procedure history: Appendectomy ([id number]). knee arthroscopy bilateral. left hand. bilateral cataract [...] groin. Musculoskeletal: Left hip pain. Integumentary: Warm, [place], Intact, No pallor, No rash, WOUND STABLE. [...] Color Yellow Urine Appearance Clear Urine Specific [place] 1.008 Urine pH Dipstick 7.0 Urine Leukocyte Esterase Negative Urine Nitrite Negative Urine Protein Dipstick Negative Urine Glucose Dipstick Negative Urine Ketones Dipstick Negative Urine Urobilinogen Dipstick 0.2 EU/dL Urine Bilirubin Dipstick Negative mg/dL Urine Blood Dipstick Negative Ur RBC None Seen Ur WBC None Seen Ur Bacteria Trace Ur Epithelial Cells 0-2 /HPF . Radiology Results (Last 48 hours) [id number] -- 11/26/2018 12:26 CT Hip LT WO [...] then you may give Tylenol 650 mg PO/AL x 1. If no response in 2 [...] prophylaxis. Electronically signed by Vicente Rueda Conversion Cloth Shrinking Machine Operator Helper Cerner at 08/17/2022 9:43 AM CDT documented in this encounter Plan of Treatment Not on file documented as of this encounter Visit Diagnoses Not on filedocumented in this encounter
--- OUTSIDE RECORDS SUMMARY | 2024-11-05 17:06 | XMS_ITS | Encounter Summary ---
Author Organization [employer] ([place], [place], [place], [place]) Address [address] [place] [address] Care Team Providers Care Rough Rib Grader Name Role Phone Unavailable Primary Care Provider Unavailabl e Encounter Details Date Type Department Care Team (Late st Contact Info) Description 11/28/2018 Transcribed Document [facility] [place] [facility] [place] [address] ProviderDarwin MD [address] [place] [address] Social History Tobacco Use [...] Conversion Note - Historical ProviderMD - 11/28/2018 8:55 PM CDT Spiritual Care Short Form Entered On: 11/28/2018 22:43 EDT Performed On: 11/28/2018 20:55 EDT by YOHANA DEL TORO Chaplain-Non Cert General Information, Spiritual Care Spiritual Care Referred by : Public Service Administrator initiated Reason for Visit : Initial Ministry Provided to : Patient, Family/Significant other Intervention/Comment/Summary Points : 3-day visit to patient, his waas persent with him. 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 He and his are looking forward to his next step in recovery and are hopeful that he will go to inpatient physical rehab soon. They are well-supported by family and rastafari; prayed with them for patient's continued recovery. Spiritual/Emotional Acuity : Low Spiritual Framework : Well integrated, provides significant strength/resource Active in a Adventist/Nica Group : Yes Restoration Preference : [employer] YOHANA DEL TORO, Public Service Administrator-Non Cert - 11/28/2018 22:41 EDT Electronically signed by Marybeth [facility] Conversion Retail Parts Pro Cerner at 08/17/2022 9:52 AM CDT documented in this encounter Plan of Treatment Not on file documented as of this encounter Visit Diagnoses Not on filedocumented in this encounter
--- OUTSIDE RECORDS SUMMARY | 2024-11-05 17:06 | XMS_ITS | Encounter Summary ---
Author Organization [employer] ([place], [place], [place], [place]) Address [address] [place] [address] Care Team Providers Care Electroformer Name Role Phone Unavailable Primary Care Provider Unavailabl e Encounter Details Date Type Department Care Team (Late st Contact Info) Description 11/28/2018 Transcribed Document [facility] [place] [facility] [place] [address] ProviderDarwin MD [address] [place] [address] Social History Tobacco Use [...] Policy Numbers : Insurance 1 Health Plan: [employer] Policy Number: [id number] Authorization Number: [id number] Insurance Primary Name : [facility] Medicare Authorization Status-Primary : Admit approved Reference Number-Primary : [id number] Number of Days Authorized-Primary : 2 Authorized Service Begin Date-Primary : 11/26/2018 EDT Authorized Service End Date-Primary : 11/27/2018 EDT Authorization Comments-Primary : Uploaded clinicals to [facility] Medicare via [employer] for continuing stay. Historical Authorization Comments-Primary : Comment 1: [facility] approved per fax back -- nrd 11/28 (CRUZ, VANDANA, RN-Utilization Review 11/27/2018 16:05) Comment 2: Uploaded clinicals to [facility] Medicare via [employer]. (JONY PALOMO, RN-Utilization Review 11/27/2018 09:20) JONY PALOMO RN-Utilization Review - 11/28/2018 13:33 EDT documented in this encounter Plan of Treatment Not on file documented as of this encounter Visit Diagnoses Not on filedocumented in this encounter
--- OUTSIDE RECORDS SUMMARY | 2024-11-05 17:06 | XMS_ITS | Encounter Summary ---
Author Organization [employer] ([place], [place], [place], [place]) Address [address] [place] [address] Care Team Providers Care Monkey Trainer Name Role Phone Unavailable Primary Care Provider Unavailabl e Encounter Details Date Type Department Care Team (Late st Contact Info) Description 11/27/2018 Transcribed Document [facility] [place] [address] [place] [address] ProviderDarwin MD [address] [place] [address] Social History Tobacco Use Types [...] Note - Historical ProviderMD - 11/27/2018 5:00 PM CDT Chart Check - Review Order Profile Entered On: 11/27/2018 19:41 EDT Performed On: 11/27/2018 17:00 EDT by Frida Muir Rn Chart Check Powerplans Initiated/Discontinued as Appropriate : Yes All Active Orders Reviewed : Yes Frida Muir Rn - 11/27/2018 19:41 EDT Electronically signed by Vicente Rueda 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
[2024-11-05 19:10] LABS: Valproic Acid, (Depakene) 36.9 ug/ml (50-100)
== END 2024-11-05 23:59 | disposition home or self-care (01) ==
LOC: LAB.DROPOF 17:02
PROVIDERS: PCP Family Medicine Hospice and Palliative Medicine; Visit Provider Family Medicine Hospice and Palliative Medicine
DX: G40.909 Epilepsy, unspecified, not intractable, without status epilepticus (principal)
CPT/HCPCS: 80164